=== PATIENT | female | born 1960 | race Two or more races ===

== ENCOUNTER → 2020-08-21 11:01 | Outpatient (BNVA) | payer MEDICAID, SELFPAY | PROVIDERS: PCP Internal Medicine; Referring Provider Internal Medicine; Visit Provider Student in an Organized Health Care Education/Training Program | DX: M06.00 Rheumatoid arthritis without rheumatoid factor, unspecified site (principal); R76.8 Other specified abnormal immunological findings in serum; M1A.0710 Idiopathic chronic gout, right ankle and foot, without tophus (tophi); M54.41 Lumbago with sciatica, right side; R21 Rash and other nonspecific skin eruption | CPT/HCPCS: 99214 ==

== ENCOUNTER 2020-08-21 12:41 | Outpatient (REF) | payer MEDICAID, SELFPAY ==
--- NOTE | 2020-08-21 13:06 | XR_ITS ---
EXAMINATION: XR LUMBOSACRAL SPINE CLINICAL INFORMATION: Lumbago with sciatica right side COMPARISON: November 19, 2015 TECHNIQUE: Three views of the lumbosacral spine. FINDINGS: There is no evidence of acute fracture, spondylolisthesis, or spondylolysis. Pedicles are intact. There is some mild marginal spurring seen at multiple levels. There is mild narrowing of the L5-S1 disc space. There are some mild posterior partially calcified disc bulge is present at the L to 3, L3-L4, and L4-L5 levels. There is some facet arthropathy seen involving the right L5-S1 facet joint. No significant degenerative change of the sacroiliac joints is noted. Prominent vascular calcifications are present. XR/XR lumbar spine 2-3V IMPRESSION: No acute fracture, spondylolisthesis, or spondylolysis of the lumbar spine. Spondylosis as described with narrowing of the L5-S1 disc space and some facet arthropathy. Posterior disc bulges as described.
[2020-08-21 13:36] LABS: MANUAL DIFF FLAG NO
[2020-08-21 14:03] LABS: Basophils Percent Auto 0.4 % (0-2); Eosinophils Absolute Auto 0.2 X10*3/uL (0.0-0.4); Eosinophils Percent Auto 2.4 % (0-4); Hematocrit 42.1 % (37-47); Hemoglobin 13.3 g/dl (12.0-16.0); Imm Gran Abs Auto 0.05 X10*3/uL (0.00-0.03); Imm Gran Pct Auto 0.5 % (0.0-0.4); Lymphocytes Absolute Auto 1.3 X10*3/uL (1.2-4.9); Mean Corpuscular HGB Conc 31.6 g/dl (31.0-35.0); Mean Corpuscular Hemoglobin 27.8 pg (27.0-33.0); Mean Corpuscular Volume 88.1 fL (80-98); Mean Platelet Volume 10.6 fL (9.4-12.3); Monocytes Absolute Auto 0.7 X10*3/uL (0.1-1.2); Neutrophils Absolute Auto 7.8 X10*3/uL (2.0-8.3); Neutrophils Percent Auto 76.7 % (45-73); Platelet Count 350 X10*3/uL (160-400); Red Blood Count 4.78 X10*6/uL (4.20-5.50); Red Cell Distribution Width 14.5 % (11.0-16.0); White Blood Count 10.1 X10*3/uL (4.8-10.8)
[2020-08-21 14:22] LABS: Alanine Aminotransferase 14 U/L (0-31); Albumin Level 4.3 g/dL (3.5-5.0); Alkaline Phosphatase 43 U/L (39-117); Anion Gap 15 (12-20); Aspartate Amino Transferase 17 U/L (5-31); Bilirubin Total 0.3 mg/dL (0.0-1.0); Blood Urea Nitrogen 20 mg/dL (9-16); C Reactive Protein 0.98 mg/dL (< or = 0.50); Carbon Dioxide 32 mmol/L (22-29); Chloride 100 mmol/L (96-108); Estimated Glomerular Filt Rate > 60; Glucose Random 110 mg/dL (60-115); Potassium 4.7 mmol/l (3.3-5.1); Sodium 142 mmol/L (135-145); Total Protein 7.4 g/dL (6.5-8.0); Uric Acid 5.9 mg/dL (2.4-5.7)
[2020-08-21 14:40] LABS: Calcium 10.3 mg/dL (8.4-10.2)
[2020-08-21 14:57] LABS: Erythrocyte Sedimentation Rate 23 MM/HR (0-20)
== END 2020-08-21 12:42 | disposition home or self-care (01) ==
LOC: HO.LAB 12:41
PROVIDERS: PCP Internal Medicine; Visit Provider Student in an Organized Health Care Education/Training Program
DX: E11.65 Type 2 diabetes mellitus with hyperglycemia (principal); R21 Rash and other nonspecific skin eruption; M54.41 Lumbago with sciatica, right side; M06.00 Rheumatoid arthritis without rheumatoid factor, unspecified site
CPT/HCPCS: 36415; 72100; 80053; 84550; 85025; 85652; 86140

== ENCOUNTER → 2020-09-10 09:24 | Outpatient (BNVA) | payer MEDICAID, SELFPAY | PROVIDERS: PCP Internal Medicine; Referring Provider Internal Medicine; Visit Provider Surgery | DX: L72.0 Epidermal cyst (principal) | CPT/HCPCS: 99212 ==

== ENCOUNTER → 2020-09-23 09:53 | Outpatient (BNVA) | payer MEDICAID, SELFPAY | PROVIDERS: PCP Internal Medicine; Referring Provider Internal Medicine; Visit Provider Internal Medicine | DX: J45.909 Unspecified asthma, uncomplicated (principal); G47.33 Obstructive sleep apnea (adult) (pediatric); E66.01 Morbid (severe) obesity due to excess calories; Z68.33 Body mass index [BMI] 33.0-33.9, adult; Z79.52 Long term (current) use of systemic steroids; Z79.899 Other long term (current) drug therapy; Z99.89 Dependence on other enabling machines and devices | CPT/HCPCS: 99212 ==

== ENCOUNTER 2020-10-08 13:53 | Outpatient (REF) | payer MEDICAID, SELFPAY ==
[2020-10-08 13:55] VITALS: BP 104/68; PULSE 98; RESP 16; TEMP 36.3; O2SAT 99
[2020-10-08 14:03] VITALS: BMI 29.9
[2020-10-08 14:41] VITALS: BP 112/76; PULSE 95; RESP 16
--- NOTE | 2020-10-09 09:31 | PM.OP ---
Brief Operative Note Date of Service: 10/08/20 Pre-op diagnosis: Epidermal cyst x2, right posterior thigh Post-op diagnosis: same Procedure: Excision of epidermal cyst x2, right posterior thigh Surgeon: Agustín Real MD Anesthesia: local Estimated blood loss (mL): 5 Pathology: other (Epidermal cyst) Condition: stable Disposition: other (Home)
--- NOTE | 2020-10-09 10:06 | OP_ITS ---
SURGEON: Agustín Real MD INDICATIONS: The patient is a 60-year-old female with 2 areas of cystic induration on the posterior thigh on the right. Each of this was about 1 cm in size and adjacent to each other. In view of recurrent swelling, she wanted to proceed with excision. She understood technique of excision under local anesthesia. She is aware of the risks, benefits, and alternatives. PREOPERATIVE DIAGNOSIS: Epidermal cyst x2 on the posterior right thigh. POSTOPERATIVE DIAGNOSIS: Epidermal cyst x2 on the posterior right thigh. PROCEDURE PERFORMED: Excision of epidermal cyst x2 on the posterior right thigh. ESTIMATED BLOOD LOSS: COMPLICATIONS: ANESTHESIA: ASSISTANTS: SPECIMENS: DESCRIPTION OF PROCEDURE: She was brought to the minor procedure room. She was placed in prone position. The area of the 2 cysts was prepped and draped. Lidocaine 1% was used for local anesthesia. I made an elliptical incision on the first cyst more superiorly using blade #15, carried down to full-thickness skin and subcutaneous fat over the entire indurated area. This was sent as specimen and I closed the incision with full-thickness nylon 3-0 interrupted sutures. I proceeded to excise the second cyst adjacent to this in same manner. Again, an elliptical incision was made in the skin around the indurated area and was extended all the way to the subcutaneous layer past the area of induration. This was sent as specimen as well. I closed this incision with multiple nylon 3-0 sutures as well. Dressings were applied. She tolerated procedure well. There were no complications noted. I will see her in the office for followup visit in 2 weeks and for removal of sutures. MD JAYASHREE Aviles/MIKE / [phone]
== END 2020-10-08 13:54 | disposition home or self-care (01) ==
LOC: HO.MS 13:53
PROVIDERS: PCP Internal Medicine; Visit Provider Surgery
PROC: (CPT 11401; principal; 2020-10-08 14:00)
DX: L72.0 Epidermal cyst (principal)
CPT/HCPCS: 11401 ×2; 88304

== ENCOUNTER → 2020-10-22 09:15 | Outpatient (BNVA) | payer MEDICAID, SELFPAY | PROVIDERS: PCP Internal Medicine; Referring Provider Internal Medicine; Visit Provider Surgery | DX: L72.0 Epidermal cyst (principal) | CPT/HCPCS: 99212 ==

== ENCOUNTER 2020-12-08 12:35 | Emergency (ER) | payer MEDICAID, SELFPAY ==
[2020-12-08 13:48] VITALS: BP 122/88; PULSE 115; RESP 18; TEMP 36.9; O2SAT 98; BMI 26.6
== END 2020-12-08 14:18 | disposition left against medical advice (07) ==
PROVIDERS: Emergency Provider Emergency Medicine
DX: Z20.822 Contact with and (suspected) exposure to COVID-19 (principal)
CPT/HCPCS: 99281; 99282

== ENCOUNTER 2020-12-24 14:49 | Outpatient (REF) | payer MEDICAID, SELFPAY ==
[2020-12-24 15:46] LABS: MANUAL DIFF FLAG NO
[2020-12-24 15:52] LABS: Basophils Percent Auto 0.3 % (0-2); Eosinophils Absolute Auto 0.2 X10*3/uL (0.0-0.4); Eosinophils Percent Auto 1.7 % (0-4); Hematocrit 40.4 % (37-47); Hemoglobin 12.8 g/dl (12.0-16.0); Imm Gran Abs Auto 0.04 X10*3/uL (0.00-0.03); Imm Gran Pct Auto 0.4 % (0.0-0.4); Lymphocytes Absolute Auto 2.1 X10*3/uL (1.2-4.9); Lymphocytes Percent Auto 21.5 % (20-40); Mean Corpuscular HGB Conc 31.7 g/dl (31.0-35.0); Mean Corpuscular Hemoglobin 27.8 pg (27.0-33.0); Mean Corpuscular Volume 87.8 fL (80-98); Monocytes Absolute Auto 0.9 X10*3/uL (0.1-1.2); Monocytes Percent Auto 9.3 % (2-11); Neutrophils Absolute Auto 6.6 X10*3/uL (2.0-8.3); Neutrophils Percent Auto 66.8 % (45-73); Platelet Count 422 X10*3/uL (160-400); Red Cell Distribution Width 15.5 % (11.0-16.0); White Blood Count 9.8 X10*3/uL (4.8-10.8)
[2020-12-24 16:06] LABS: Glucose Urine UA NEG (NEG); Leukocyte Esterase Urine NEG (NEG); Nitrite Urine NEG (NEG); Specific Gravity - Urine <= 1.005 (1.005-1.025); Urine Blood NEG (NEG); Urine Ketones NEG (NEG); Urine Protein NEG (NEG-TRACE)
[2020-12-24 16:13] LABS: Appearance Urine CLEAR; Color Urine YELLOW
[2020-12-24 16:16] LABS: Albumin Level 4.2 g/dL (3.5-5.0); Anion Gap 15 (12-20); Blood Urea Nitrogen 17 mg/dL (9-16); Calcium 9.3 mg/dL (8.4-10.2); Carbon Dioxide 28 mmol/L (22-29); Chloride 101 mmol/L (96-108); Estimated Glomerular Filt Rate > 60; Magnesium 1.8 mg/dL (1.6-2.6); Phosphorus 3.7 mg/dL (2.7-4.5); Sodium 140 mmol/L (135-145)
[2020-12-24 16:29] LABS: Creatinine Urine 68.66 mg/dL; Microalbum/Creatinine Ratio Ur 84.4 ug/mg cr; Protein/Creatinine Ratio, Ur 0.17 (<0.2); Total Protein Urine Random 12 mg/dL (<12)
[2020-12-24 16:38] LABS: Vitamin D 25-OH Total 50.8 ng/mL (>30)
[2020-12-24 16:42] LABS: Renal w Reflex Lab Use Only Order verified
[2020-12-26 12:07] LABS: Calcium (PTHI) 9.4 mg/dL (8.6-10.4); PTHI 74 pg/mL (14-64)
== END 2020-12-24 14:50 | disposition home or self-care (01) ==
LOC: HO.LAB 14:49
PROVIDERS: PCP Internal Medicine; Visit Provider Internal Medicine Nephrology
DX: I12.9 Hypertensive chronic kidney disease with stage 1 through stage 4 chronic kidney disease, or unspecified chronic kidney disease (principal); E11.22 Type 2 diabetes mellitus with diabetic chronic kidney disease; N18.2 Chronic kidney disease, stage 2 (mild); N20.0 Calculus of kidney; R60.9 Edema, unspecified; E66.01 Morbid (severe) obesity due to excess calories
CPT/HCPCS: 36415; 80051; 81003; 82040; 82043; 82306; 82310; 82565; 83735; 83970; 84100; 84156; 84520; 85025

== ENCOUNTER → 2021-01-26 08:54 | Outpatient (BNVA) | payer MEDICAID, SELFPAY | PROVIDERS: PCP Internal Medicine; Visit Provider Nurse Practitioner Family | DX: M47.816 Spondylosis without myelopathy or radiculopathy, lumbar region (principal) | CPT/HCPCS: 99202 ==

== ENCOUNTER 2021-01-29 14:34 | Outpatient (REF) | payer MEDICAID, SELFPAY ==
[2021-01-29 15:44] LABS: MANUAL DIFF FLAG NO
[2021-01-29 15:53] LABS: Basophils Percent Auto 0.3 % (0-2); Eosinophils Absolute Auto 0.1 X10*3/uL (0.0-0.4); Eosinophils Percent Auto 0.8 % (0-4); Hematocrit 42.5 % (37-47); Hemoglobin 13.3 g/dl (12.0-16.0); Imm Gran Abs Auto 0.05 X10*3/uL (0.00-0.03); Imm Gran Pct Auto 0.5 % (0.0-0.4); Lymphocytes Percent Auto 9.5 % (20-40); Mean Corpuscular HGB Conc 31.3 g/dl (31.0-35.0); Mean Corpuscular Hemoglobin 27.6 pg (27.0-33.0); Mean Corpuscular Volume 88.2 fL (80-98); Mean Platelet Volume 9.8 fL (9.4-12.3); Monocytes Absolute Auto 0.3 X10*3/uL (0.1-1.2); Monocytes Percent Auto 3.2 % (2-11); Neutrophils Absolute Auto 8.5 X10*3/uL (2.0-8.3); Neutrophils Percent Auto 85.7 % (45-73); Platelet Count 415 X10*3/uL (160-400); Red Blood Count 4.82 X10*6/uL (4.20-5.50)
[2021-01-29 16:35] LABS: Alanine Aminotransferase 17 U/L (0-31); Albumin Level 4.5 g/dL (3.5-5.0); Alkaline Phosphatase 53 U/L (39-117); Anion Gap 13 (12-20); Aspartate Amino Transferase 16 U/L (5-31); Bilirubin Total 0.3 mg/dL (0.0-1.0); Blood Urea Nitrogen 20 mg/dL (9-16); C Reactive Protein 0.43 mg/dL (< or = 0.50); Calcium 9.8 mg/dL (8.4-10.2); Carbon Dioxide 28 mmol/L (22-29); Chloride 99 mmol/L (96-108); Estimated Glomerular Filt Rate > 60; Glucose Random 110 mg/dL (60-115); Potassium 4.3 mmol/L (3.3-5.1); Sodium 136 mmol/L (135-145); Total Protein 7.8 g/dL (6.5-8.0)
[2021-01-29 17:41] LABS: Erythrocyte Sedimentation Rate 20 MM/HR (0-20)
== END 2021-01-29 14:35 | disposition home or self-care (01) ==
LOC: HO.LAB 14:34
PROVIDERS: PCP Internal Medicine; Visit Provider Student in an Organized Health Care Education/Training Program
DX: M06.00 Rheumatoid arthritis without rheumatoid factor, unspecified site (principal); M1A.0710 Idiopathic chronic gout, right ankle and foot, without tophus (tophi); R76.8 Other specified abnormal immunological findings in serum; Z79.52 Long term (current) use of systemic steroids; Z79.899 Other long term (current) drug therapy
CPT/HCPCS: 36415; 80053; 85025; 85652; 86140; 99212

== ENCOUNTER 2021-02-11 09:02 | Outpatient (REF) | payer MEDICAID, SELFPAY ==
[2021-02-11 11:39] LABS: Cholesterol 155 mg/dL; HDL Cholesterol 47 mg/dL; LDL Cholesterol Calculated 87 mg/dl; Triglycerides 109 mg/dL
[2021-02-12 06:21] LABS: LDL Cholesterol Direct 92 mg/dL (<100)
== END 2021-02-11 09:03 | disposition home or self-care (01) ==
LOC: HO.LAB 09:02
PROVIDERS: PCP Internal Medicine; Visit Provider Internal Medicine Endocrinology, Diabetes & Metabolism
DX: E11.65 Type 2 diabetes mellitus with hyperglycemia (principal)
CPT/HCPCS: 36415; 80061; 83721

== ENCOUNTER → 2021-02-19 09:41 | Outpatient (BNVA) | payer MEDICAID, SELFPAY | PROVIDERS: PCP Internal Medicine; Visit Provider Internal Medicine | DX: G47.33 Obstructive sleep apnea (adult) (pediatric) (principal); J45.909 Unspecified asthma, uncomplicated; Z99.89 Dependence on other enabling machines and devices | CPT/HCPCS: 99212 ==

== ENCOUNTER 2021-03-10 06:19 | Outpatient (REF) | payer MEDICAID, SELFPAY ==
--- NOTE | ~2021-03-10 | FL_ITS ---
EXAMINATION: XR FLUOROSCOPY WITH IMAGES CLINICAL INFORMATION: Spondylosis without myelopathy COMPARISON: None. TECHNIQUE: Fluoroscopy performed by Kelli Barraza NP. Fluoroscopy time: 0.6 minutes DAP: 6.91 Gycm2 Images: 7 FINDINGS: There are bilateral needles placed at adjacent to the L5, L4 and L3 facet joints with contrast visualization for ganglion block FL/FL guidance in treatment room IMPRESSION: Fluoroscopy provided to jovanni Pereira for spinal guidance.
== END 2021-03-10 06:20 | disposition home or self-care (01) ==
LOC: HO.RADIR 06:19
PROVIDERS: Visit Provider Anesthesiology
DX: M47.816 Spondylosis without myelopathy or radiculopathy, lumbar region (principal)
CPT/HCPCS: 64493; 64494; Q9967

== ENCOUNTER → 2021-03-17 11:09 | Outpatient (BNVA) | payer MEDICAID, SELFPAY | PROVIDERS: PCP Internal Medicine; Visit Provider Nurse Practitioner Family ==

== ENCOUNTER 2021-04-06 12:55 | Outpatient (REF) | payer MEDICAID, SELFPAY ==
--- NOTE | ~2021-04-06 | MM_ITS ---
EXAMINATION: MM SCREENING DIGITAL BREAST TOMOSYNTHESIS, BILATERAL CLINICAL INFORMATION: Screening. Asymptomatic. The lifetime risk of breast cancer based on the Tyrer-Cuzick Model is 9%. COMPARISON: Mammography: 11/07/2019, 10/12/2018, 10/07/2017 TECHNIQUE: Digital breast tomosynthesis is performed in both the craniocaudal and mediolateral oblique views along with computer-aided detection (CAD). Synthesized 2D images are generated from the tomosynthesis. FINDINGS: There are scattered areas of fibroglandular density (ACR BI-RADS breast composition Category b). There are no significant masses, abnormal calcifications, or other abnormalities. Parenchymal pattern is similar to prior studies. There is no developing density. No interval mass or architectural abnormality. Bilateral vascular and some punctate fine round calcifications are again noted. The axilla and skin contours are unremarkable. No significant changes. MM/MM tomosynthesis screening BI IMPRESSION: No mammographic evidence of malignancy. ASSESSMENT: BI-RADS 2: Benign RECOMMENDATION: Routine annual mammography screening. This patient's information was entered into a reminder system with a target due date for their next mammogram.
== END 2021-04-06 12:56 | disposition home or self-care (01) ==
LOC: HO.MAMMO 12:55
PROVIDERS: Visit Provider Internal Medicine
DX: Z12.31 Encounter for screening mammogram for malignant neoplasm of breast (principal)
CPT/HCPCS: 77063; 77067

== ENCOUNTER 2021-04-29 08:55 | Outpatient (REF) | payer MEDICAID, SELFPAY | END 2021-04-29 08:56 | disposition home or self-care (01) | LOC: HO.RESP 08:55 | PROVIDERS: PCP Internal Medicine Cardiovascular Disease; Visit Provider Internal Medicine Cardiovascular Disease | DX: Z13.89 Encounter for screening for other disorder (principal) ==

== ENCOUNTER → 2021-05-13 10:33 | Outpatient (BNVA) | payer MEDICAID, SELFPAY | PROVIDERS: PCP Internal Medicine; Visit Provider Internal Medicine Endocrinology, Diabetes & Metabolism | DX: E11.65 Type 2 diabetes mellitus with hyperglycemia (principal); E03.9 Hypothyroidism, unspecified; E78.5 Hyperlipidemia, unspecified; M85.80 Other specified disorders of bone density and structure, unspecified site; Z86.39 Personal history of other endocrine, nutritional and metabolic disease | CPT/HCPCS: 82947; 99212 ==

== ENCOUNTER → 2021-05-18 09:52 | Outpatient (REF) | payer MEDICAID, SELFPAY ==
--- NOTE | ~2021-05-18 | NM_ITS ---
Lexiscan Myocardial perfusion study Indication: Congestive heart failure, shortness of breath, assess for coronary disease and ischemia Technique: The patient was brought in for a Lexiscan perfusion study on 05/18/2021 and was injected 0.4 mg of Lexiscan intravenously. Within a minute of this injection 25 mCi of sestamibi was given intravenously. Images were obtained using the SPECT gamma camera interlaced with the gating device. Images were obtained in supine position. Resting perfusion study was performed on 05/29/2021. Patient was administered 25 mCi of sestamibi intravenously at rest. Images were then obtained in supine position. Total DLP 117mGy-cm. Images were processed with the software and compared side to side in short axis, horizontal long axis and vertical long axis views. Findings: Raw acquisition was reviewed. The stress perfusion study showed no significant perfusion abnormality. Both uncorrected as well as CT attenuation corrected images were reviewed. The gated study shows normal LV systolic function with calculated LVEF of 67%. LV cavity is normal in size. The gated study shows normal wall thickening and contraction of segments. Resting study shows no significant perfusion abnormality. Gating at rest reveals normal wall motion with ejection fraction at >70%. The findings are consistent with no reversible or fixed perfusion abnormality. NM/NM dinesh perf SPECT rest & str Impression: 1. Myocardial perfusion imaging study shows normal myocardial perfusion. No evidence of any ischemia or infarction. 2. Gated LVEF is 67% during stress; > 70% during rest. 3. Transient ischemic dilatation not present. EKG component of the test reported separately.
--- NOTE | 2021-05-18 10:00 | CA_ITS ---
Acquisition Time: 2021-05-18 10:16:13 Total Exercise Time: 00:02:00 Test Indications: Chest Pain Medications: SEE H Protocol: LEXISCAN Max HR: 117 BPM 73% of Pred: 159 BPM Max BP: 118/080 mmHG Max Work Load: 1.0 METS Pharmacological stress test with Lexiscan injection, while sitting and kicking her legs, without anginal symptoms, without arrythmia, with normotensive response to injection, with nondiagnostic EKG for ischemia. In recovery she reported headeache that was treated with Aminophylline 75mg IVP to reverse Lexiscan with resolution of symptom. Nuclear images pending. Test reviewed with Dr Dodge. Referred By: Tim Avila Overread By: NEERU GONZALEZ
== END ==
LOC: HO.CARD 09:52
PROVIDERS: Visit Provider Internal Medicine Cardiovascular Disease
DX: R06.02 Shortness of breath (principal)
CPT/HCPCS: 78452; 93017; A9500; J0280; J2785

== ENCOUNTER → 2021-08-07 09:33 | Day surgery (SDC) | payer MEDICAID, SELFPAY ==
[2021-08-03 12:20] VITALS: BMI 31.2
--- NOTE | 2021-08-06 10:05 | HO.ANESPROP2 ---
HPI - Anesthesia Eval Consult details Narrative: 60yo F for Bilateral L3-L4-DR-L5 Medial Branch Radiofrequency AB Prednisone daily (RA) Pt cx'd 08/07/21 d/t pt eating breakfast PMFSH Active Problems Active Problems: All Active Problems (Updated 05/13/21 @ 10:56 by Frances Pham MD) History of primary hyperparathyroidism (Acute) Osteopenia (Acute) Dyslipidemia (Acute) Spondylosis of lumbar spine (Acute) Hypothyroidism (Acute) LONA on CPAP (Acute) Bronchial asthma (Acute) Epidermal inclusion cyst (Acute) Morbid obesity (Acute) Skin rash (Acute) Lumbago with sciatica, right side (Acute) Gout of right foot (Acute) PHYLLIS positive (Acute) [facility] systemic steroid user (Acute) Seronegative rheumatoid arthritis (Acute) Diabetes type 2, uncontrolled (Acute) Past Medical History Medical History (Updated 05/13/21 @ 10:56 by Frances Pham MD) PHYLLIS positive Bronchial asthma Diabetes type 2, uncontrolled Dyslipidemia Epidermal inclusion cyst Gout of right foot History of primary hyperparathyroidism Hypothyroidism Morbid obesity LONA on CPAP Osteopenia Seronegative rheumatoid arthritis Family History Family History (Updated 01/29/21 @ 14:46 by Sherlyn Islas CMA) Daughter History of breast cancer Father Cirrhosis Diabetes Arthritis Mother Arthritis Sister Diabetes Surgical History Surgical History H/O parathyroidectomy H/O tubal ligation History of kidney surgery Hx of cholecystectomy S/P breast lumpectomy Social History Social History (Updated 01/29/21 @ 14:44 by Sherlyn Islas CMA) Alcohol intake: never Advance Directives: No Advance Directives Information Provided: Yes Meds Allergies Allergy/AdvReac Type Severity Reaction Status Date / Time aspirin [ASA] Allergy Intermediate ITCHY, Verified 08/07/21 09:43 HOT, AND HEADACHE Penicillins Allergy Intermediate RASH Verified 08/07/21 09:43 tofacitinib [Xeljanz] Allergy Intermediate chest Verified 08/07/21 09:43 pain, headaches sulfasalazine Allergy Unknown unknown Verified 08/07/21 09:43 Home Medications Medication Instructions Recorded Confirmed Last Taken Type atorvastatin 20 mg tablet 20 mg PO DAILY 08/21/20 08/03/21 Unknown History cholecalciferol (vitamin D3) 50 50 mcg PO DAILY 08/21/20 05/13/21 Unknown History mcg (2,000 unit) capsule cyclobenzaprine 10 mg tablet 10 mg PO BEDTIME 08/21/20 08/03/21 Unknown History fluticasone propionate 220 2 puff INHALATION BID 08/21/20 08/03/21 Unknown History mcg/actuation HFA aerosol inhaler (Flovent HFA) furosemide 40 mg tablet 40 mg PO BID 08/21/20 08/03/21 Unknown History hydrocodone 5 mg-acetaminophen 325 1 tab PO Q6H PRN 08/21/20 08/03/21 Unknown History mg tablet omeprazole magnesium 20 mg 20 mg PO DAILY 08/21/20 08/03/21 Unknown History tablet,delayed release (Prilosec OTC) valsartan 80 mg tablet 80 mg PO DAILY 08/21/20 08/03/21 Unknown History Exam Exam Date and Time: August 06, 2021 1005 Height,Weight and Vital Signs: Height 5 ft Weight 72.575 kg Pertinent Lab Results Pertinent Lab Results: Laboratory Tests 01/29/21 01/29/21 15:35 15:35 WBC 10.0 Hgb 13.3 Hct 42.5 Plt Count 415 H Sodium 136 Potassium 4.3 Chloride 99 Carbon Dioxide 28 BUN 20 H Creatinine 0.91 Narrative Narrative: NM dinesh perf SPECT rest & str 04/2021 Impression: ? 1.? Myocardial perfusion imaging study shows normal myocardial perfusion. No evidence of any ischemia or infarction. 2.? Gated LVEF is 67% during stress; > 70% during rest. 3. Transient ischemic dilatation not present. ? EKG nondiagnostic. Assessment and Plan Assessment Anesthesia Assessment: Chart Reviewed
== END ==
PROVIDERS: PCP Internal Medicine; Visit Provider Anesthesiology
DX: M47.816 Spondylosis without myelopathy or radiculopathy, lumbar region (principal); Z53.09 Procedure and treatment not carried out because of other contraindication

== ENCOUNTER → 2021-10-20 10:21 | Outpatient (BNVA) | payer MEDICAID, SELFPAY | PROVIDERS: PCP Internal Medicine; Visit Provider Internal Medicine | DX: G47.33 Obstructive sleep apnea (adult) (pediatric) (principal); J45.909 Unspecified asthma, uncomplicated; Z99.89 Dependence on other enabling machines and devices | CPT/HCPCS: 99212 ==

== ENCOUNTER 2022-01-01 09:33 | Day surgery (SDC) | payer MEDICAID, SELFPAY ==
--- NOTE | 2021-10-28 09:28 | HO.ANESPROP2 ---
HPI - Anesthesia Eval Consult details Narrative: 61yo F for Bilateral L3-L4-DR-L5 Medial Branch Radiofrequency AB Prednisone daily (RA) Pt cx'd 08/07/21 d/t pt eating breakfast PMFSH Active Problems Active Problems: All Active Problems (Updated 10/20/21 @ 11:27 by Radha Whitfield MD) History of primary hyperparathyroidism (Acute) Osteopenia (Acute) Dyslipidemia (Acute) Spondylosis of lumbar spine (Acute) Hypothyroidism (Acute) LONA on CPAP (Acute) Bronchial asthma (Acute) Epidermal inclusion cyst (Acute) Morbid obesity (Acute) Skin rash (Acute) Lumbago with sciatica, right side (Acute) Gout of right foot (Acute) PHYLLIS positive (Acute) intermediate systemic steroid 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 (Acute) Seronegative rheumatoid arthritis (Acute) Diabetes type 2, uncontrolled (Acute) Past Medical History Medical History PHYLLIS positive Bronchial asthma Diabetes type 2, uncontrolled Dyslipidemia Epidermal inclusion cyst Gout of right foot History of primary hyperparathyroidism Hypothyroidism Morbid obesity LONA on CPAP Osteopenia Seronegative rheumatoid arthritis Family History Family History Daughter History of breast cancer Father Cirrhosis Diabetes Arthritis Mother Arthritis Sister Diabetes Surgical History Surgical History H/O parathyroidectomy H/O tubal ligation History of kidney surgery Hx of cholecystectomy S/P breast lumpectomy Social History Social History Alcohol intake: never Meds Allergies Allergy/AdvReac Type Severity Reaction Status Date / Time aspirin [ASA] Allergy Intermediate ITCHY, Verified 10/20/21 10:57 HOT, AND HEADACHE Penicillins Allergy Intermediate RASH Verified 10/20/21 10:57 tofacitinib [Xeljanz] Allergy Intermediate chest Verified 10/20/21 10:57 pain, headaches sulfasalazine Allergy Unknown unknown Verified 10/20/21 10:57 Home Medications Medication Instructions Recorded Confirmed Last Taken Type atorvastatin 20 mg tablet 20 mg PO DAILY 08/21/20 08/03/21 Unknown History cholecalciferol (vitamin D3) 50 50 mcg PO DAILY 08/21/20 05/13/21 Unknown History mcg (2,000 unit) capsule cyclobenzaprine 10 mg tablet 10 mg PO BEDTIME 08/21/20 08/03/21 Unknown History fluticasone propionate 220 2 puff INHALATION BID 08/21/20 08/03/21 Unknown History mcg/actuation HFA aerosol inhaler (Flovent HFA) furosemide 40 mg tablet 40 mg PO BID 08/21/20 08/03/21 Unknown History hydrocodone 5 mg-acetaminophen 325 1 tab PO Q6H PRN 08/21/20 08/03/21 Unknown History mg tablet omeprazole magnesium 20 mg 20 mg PO DAILY 08/21/20 08/03/21 Unknown History tablet,delayed release (Prilosec OTC) valsartan 80 mg tablet 80 mg PO DAILY 08/21/20 08/03/21 Unknown History Exam Exam Date and Time: October 28, [id number] Pertinent Lab Results Pertinent Lab Results: Laboratory Tests 01/29/21 01/29/21 15:35 15:35 WBC 10.0 Hgb 13.3 Hct 42.5 Plt Count 415 H Sodium 136 Potassium 4.3 Chloride 99 Carbon Dioxide 28 BUN 20 H Creatinine 0.91 Narrative Narrative: NM dinesh perf SPECT rest & str 04/2021 Impression: ? 1.? Myocardial perfusion imaging study shows normal myocardial perfusion. No evidence of any ischemia or infarction. 2.? Gated LVEF is 67% during stress; > 70% during rest. 3. Transient ischemic dilatation not present. ? EKG nondiagnostic. Assessment and Plan Assessment Anesthesia Assessment: Chart Reviewed
--- NOTE | ~2022-01-01 | FL_ITS ---
EXAMINATION: XR FLUOROSCOPY WITH IMAGES CLINICAL INFORMATION: RFA, lumbar COMPARISON: Radiographs lumbar spine 08/21/2020 TECHNIQUE: Fluoroscopy performed by Dr. Sharath Parish. Fluoroscopy time: 0.8 minutes DAP: 4.61 mGycm2 Images: 4 FINDINGS: There are spinal needles/electrodes overlying the bilateral outer L3, L4, and L5 neural foramen. There is mild spurring multilevel vertebral bodies. FL/FL guidance in OR IMPRESSION: Fluoroscopy for pain management procedures.
--- NOTE | 2022-01-01 09:01 | HO.ANESPROP2 ---
[facility] Active Problems Active Problems: All Active Problems (Updated 10/20/21 @ 11:27 by Radha Whitfield MD) History of primary hyperparathyroidism (Acute) Osteopenia (Acute) Dyslipidemia (Acute) Spondylosis of lumbar spine (Acute) Hypothyroidism (Acute) LONA on CPAP (Acute) Bronchial asthma (Acute) Epidermal inclusion cyst (Acute) Morbid obesity (Acute) Skin rash (Acute) Lumbago with sciatica, right side (Acute) Gout of right foot (Acute) PHYLLIS positive (Acute) [employer] systemic steroid user (Acute) Seronegative rheumatoid arthritis (Acute) Diabetes type 2, uncontrolled (Acute) Past Medical History Medical History PHYLLIS positive Bronchial asthma Diabetes type 2, uncontrolled Dyslipidemia Epidermal inclusion cyst Gout of right foot History of primary hyperparathyroidism Hypothyroidism Morbid obesity LONA on CPAP Osteopenia Seronegative rheumatoid arthritis Functional capacity: independent ambulation Family History Family History Daughter History of breast cancer Father Cirrhosis Diabetes Arthritis Mother Arthritis Sister Diabetes Surgical History Surgical History H/O parathyroidectomy H/O tubal ligation History of kidney surgery Hx of cholecystectomy S/P breast lumpectomy History of Problems with Anesthesia: No Social History Social History Alcohol intake: never Patient Tobacco Use Status: Former Tobacco user Are you DNR?: No Advance Directives: No Advance Directives Information Provided: Yes Nutrition Risks: No Nutritional Risk Meds Allergies Allergy/AdvReac Type Severity Reaction Status Date / Time aspirin [ASA] Allergy Intermediate ITCHY, Verified 10/20/21 10:57 HOT, AND HEADACHE Penicillins Allergy Intermediate RASH Verified 10/20/21 10:57 tofacitinib [Xeljanz] Allergy Intermediate chest Verified 10/20/21 10:57 pain, headaches sulfasalazine Allergy Unknown unknown Verified 10/20/21 10:57 Home Medications Medication Instructions Recorded Confirmed Last Taken Type atorvastatin 20 mg tablet 20 mg PO DAILY 08/21/20 08/03/21 01/01/22 History cholecalciferol (vitamin D3) 50 50 mcg PO DAILY 08/21/20 05/13/21 01/01/22 History mcg (2,000 unit) capsule cyclobenzaprine 10 mg tablet 10 mg PO BEDTIME 08/21/20 08/03/21 Unknown History fluticasone propionate 220 2 puff INHALATION BID 08/21/20 08/03/21 01/01/22 History mcg/actuation HFA aerosol inhaler (Flovent HFA) furosemide 40 mg tablet 40 mg PO BID 08/21/20 08/03/21 Unknown History hydrocodone 5 mg-acetaminophen 325 1 tab PO Q6H PRN 08/21/20 08/03/21 01/01/22 History mg tablet omeprazole magnesium 20 mg 20 mg PO DAILY 08/21/20 08/03/21 01/01/22 History tablet,delayed release (Prilosec OTC) valsartan 80 mg tablet 80 mg PO DAILY 08/21/20 08/03/21 01/01/22 History Exam Exam Date and Time: January 01, [id number] Airway Mallampati Class: II (Edentulous) TM Dist: >3cm Denture: Upper and Lower Loose/Missing/Broken Teeth: Yes, Upper and Lower Heart: RRR Lungs: CTA Assessment and Plan Assessment Anesthesia Assessment: Anesthesia Plan Discussed and Chart Reviewed Final Anesthetic Review History of Problems with Anesthesia: No NPO: Yes ASA Class: III Final Preanesthetic Review: Meds/Allgs Chart Reviewed, Consent Obtained/Reviewed and Anes Risks/Benef Reviewed Patient Risk: Intermediate Procedure Risk: Intermediate Anesthetic Plan Anesthetic Plan: MAC: Disposition: Standard PACU
[2022-01-01 09:35] VITALS: BP 115/73; PULSE 118; RESP 18; TEMP 36.1; O2SAT 95; BMI 29.2
[2022-01-01 09:44] LABS: Glucose, Whole Blood 115 mg/dL (60-115)
[2022-01-01] MEDS: Lactated Ringers 1,000 ML 50 ML IVCONT (10:05)
--- NOTE | 2022-01-01 10:20 | MHC.SHP ---
Pre-Procedural Eval Section A Date of Service: 01/01/22 The patient is an INPATIENT: No Changes since office visit: Yes Patient answered all questions The History & Physical has been completed within 30 days and I have reviewed it.: No Section B Chief Complaint: Spondylosis of Lumbar Spine Details of Present Illness: spondylosis lumbar spine Relevant Family History (Specify if Yes): No Relevant Social History: None Present Medications: see Short Stay Collaborative assessment Medical History: No relevant PMH History of Previous Operations: No relevant previous surgery Allergies: Allergies Allergy/AdvReac Type Severity Reaction Status Date / Time aspirin [ASA] Allergy Intermediate ITCHY, Verified 10/20/21 10:57 HOT, AND HEADACHE Penicillins Allergy Intermediate RASH Verified 10/20/21 10:57 tofacitinib [Xeljanz] Allergy Intermediate chest Verified 10/20/21 10:57 pain, headaches sulfasalazine Allergy Unknown unknown Verified 10/20/21 10:57 Review of Systems Sugical H&P ROS: Negative: Constitution, Cardiovascular, Respiratory, Neurological, Psychiatric, Hem-Onc, Allergic/Immunologic, Gastrointestinal, Genitourinary, Musculoskeletal, Integumentary, Endocrine and Eyes/Ears/Nose/Throat Exam Surgical H&P Exam: Normal: HEENT, Normal: Heart, Normal: Lungs, Normal: Extremities, Normal: Abdomen, Normal: Skin and Normal: Neurological Plan Diagnosis/Plan: Unchanged I have reviewed the history and physical and performed a pertinent physical examination on my patient. No changes have occurred unless specified.
--- NOTE | 2022-01-01 10:21 | PC.NURSE ---
dr gallegos aware of pts pulse rate 108-112 naD
[2022-01-01 11:25] VITALS: BP 99/72; PULSE 101; RESP 18; TEMP 36.9; O2SAT 100
--- NOTE | 2022-01-01 11:29 | P.BOP_ITS ---
Brief Operative Note Date of Service: 01/01/22 Pre-op diagnosis: spondylosis lumbar spine Post-op diagnosis: same Procedure: L3- L4- L5 B/l MB RFA Implants: none Surgeon: Sharath Parish MD Anesthesia: MAC Was an [employer] used for this Procedure?: No Estimated blood loss (mL): 2 Pathology: none sent Condition: stable Disposition: PACU
[2022-01-01 11:40] VITALS: BP 105/65; PULSE 101; RESP 18; O2SAT 98
[2022-01-01 11:55] VITALS: BP 101/71; PULSE 100; RESP 18; O2SAT 98
[2022-01-01 12:10] VITALS: BP 105/67; PULSE 98; RESP 18; TEMP 36.2; O2SAT 97; O2SAT 98
--- NOTE | 2022-01-01 13:59 | W.PM.OPN ---
Operative Note Operative Note Date of Service: 01/01/22 Narrative: Nicky is very pleasant pleasant 61 y.o. who came to OR for the medial branch radiofrequency ablation- L4 dorsal ramus L5 o bilateral the attempt to treat lumbar spondylosis related pain After obtaining informed consent patient was brought to the operating room, SHE was positioned prone on operating table, [employer] monitors were applied and patient was deeply sedated. ? Time-out was performed delineating correct site, side, the nature of the procedure, patient's allergy, preoperative antibiotic if needed.? All operating room staff was participating in OR time-out procedure. Patient's entire back was prepped with ChloraPrep twice and draped with sterile utility drapes.? Sterilely draped C-arm was brought over operating field and square picture of L4 and L5 vertebra as well as sacral bone were demonstrated on the screen.? The point of interests were delineated as connection of superior articular process of L4, L5 vertebrae bilaterally with corresponding bilateral transverse processes, as well as connection of the superior articular process of S1 bilateral with bilateral sacral alae.? The projection of the point of interest to the skin was injected with small amount of lidocaine 2%.? After that 18 gauge radiofrequency cannulas were sequentially driven to the point of interest in tunnel vision fashion 1st on the right and then on the left.? .On motor stimulation patient denied any pulsating movement in the lower extremity.? After that the needles was injected with small amount of mixture of bupivacaine 0.5% and lidocaine 2% with addition of trace amount of Kenalog.? Total dose of Kenalog was less than 20 mg. Energy application was performed with 89 degree centigrade for 90 seconds on each side.? Upon completion of the energy application cannulas? were removed sterile dressing was applied.? Patient tolerated procedure well he was taken outside of the operating room to recovery room where she recovered uneventfully.
== END 2022-01-01 13:08 | disposition home or self-care (01) ==
PROVIDERS: PCP Internal Medicine; Visit Provider Anesthesiology
PROC: (CPT 64635; principal; 2022-01-01 10:40)
DX: M47.816 Spondylosis without myelopathy or radiculopathy, lumbar region (principal); M54.50 Low back pain, unspecified; M05.9 Rheumatoid arthritis with rheumatoid factor, unspecified; E03.9 Hypothyroidism, unspecified; G47.33 Obstructive sleep apnea (adult) (pediatric); E11.9 Type 2 diabetes mellitus without complications; J45.909 Unspecified asthma, uncomplicated; Z79.52 Long term (current) use of systemic steroids; Z79.899 Other long term (current) drug therapy; Z88.0 Allergy status to penicillin; Z88.8 Allergy status to other drugs, medicaments and biological substances; Z87.891 Personal history of nicotine dependence
CPT/HCPCS: 64635; 64636 ×2; 82947; J2250; J3010; J3300

== ENCOUNTER → 2022-01-15 10:02 | Outpatient (BNVA) | payer MEDICAID, SELFPAY | PROVIDERS: PCP Internal Medicine; Visit Provider Internal Medicine Endocrinology, Diabetes & Metabolism | DX: E11.65 Type 2 diabetes mellitus with hyperglycemia (principal); E03.9 Hypothyroidism, unspecified; M85.80 Other specified disorders of bone density and structure, unspecified site; Z86.39 Personal history of other endocrine, nutritional and metabolic disease | CPT/HCPCS: 82947; 83036; 99212 ==

== ENCOUNTER → 2022-02-03 10:00 | Outpatient (BNVA) | payer MEDICAID, SELFPAY | PROVIDERS: PCP Internal Medicine; Visit Provider Nurse Practitioner Family | DX: M47.816 Spondylosis without myelopathy or radiculopathy, lumbar region (principal); M54.2 Cervicalgia | CPT/HCPCS: 99212 ==

== ENCOUNTER 2022-03-10 09:56 | Outpatient (REF) | payer MEDICAID, SELFPAY ==
[2022-03-10 11:10] LABS: Appearance Urine CLEAR; Color Urine YELLOW; Glucose Urine UA NEG (NEG); Leukocyte Esterase Urine NEG (NEG); Nitrite Urine NEG (NEG); Specific Gravity - Urine <= 1.005 (1.005-1.025); Urine Blood NEG (NEG); Urine Ketones NEG (NEG); Urine Protein NEG (NEG-TRACE)
== END 2022-03-10 09:57 | disposition home or self-care (01) ==
LOC: HO.LAB 09:56
PROVIDERS: PCP Internal Medicine; Visit Provider Internal Medicine Nephrology
DX: I12.9 Hypertensive chronic kidney disease with stage 1 through stage 4 chronic kidney disease, or unspecified chronic kidney disease (principal); E11.22 Type 2 diabetes mellitus with diabetic chronic kidney disease; E11.21 Type 2 diabetes mellitus with diabetic nephropathy; N18.2 Chronic kidney disease, stage 2 (mild); R06.9 Unspecified abnormalities of breathing; E66.01 Morbid (severe) obesity due to excess calories; D68.62 Lupus anticoagulant syndrome
CPT/HCPCS: 81003

== ENCOUNTER 2022-03-22 09:55 | Outpatient (REF) | payer MEDICAID, SELFPAY ==
--- NOTE | ~2022-03-22 | XR_ITS ---
EXAMINATION: BILATERAL SHOULDER X-RAY CLINICAL INFORMATION: Fibromyalgia COMPARISON: Previous right shoulder x-ray from 2010 TECHNIQUE: 4 views of each shoulder FINDINGS: Right: Bone alignment is normal. No fracture or dislocation is seen. The glenohumeral joint is normal. There is arthritis at the acromioclavicular joint. There are periarticular soft tissue ossifications adjacent to the acromioclavicular joint and acromion. There is a small undersurface acromial osteophyte. Left: Bone alignment is normal. No fracture or dislocation is seen. The glenohumeral joint is normal. There is mild arthritis at the acromioclavicular joint. There is a small undersurface acromial osteophyte. Soft tissues are unremarkable. XR/XR shoulder RT min 2V IMPRESSION: Arthritis at the acromioclavicular joints, right greater than left.
--- NOTE | ~2022-03-22 | XR_ITS ---
EXAMINATION: BILATERAL SHOULDER X-RAY CLINICAL INFORMATION: Fibromyalgia COMPARISON: Previous right shoulder x-ray from 2010 TECHNIQUE: 4 views of each shoulder FINDINGS: Right: Bone alignment is normal. No fracture or dislocation is seen. The glenohumeral joint is normal. There is arthritis at the acromioclavicular joint. There are periarticular soft tissue ossifications adjacent to the acromioclavicular joint and acromion. There is a small undersurface acromial osteophyte. Left: Bone alignment is normal. No fracture or dislocation is seen. The glenohumeral joint is normal. There is mild arthritis at the acromioclavicular joint. There is a small undersurface acromial osteophyte. Soft tissues are unremarkable. XR/XR shoulder LT min 2V IMPRESSION: Arthritis at the acromioclavicular joints, right greater than left.
--- NOTE | ~2022-03-22 | XR_ITS ---
EXAMINATION: XR CERVICAL SPINE CLINICAL INFORMATION: Fibromyalgia COMPARISON: Previous x-ray September 2014 TECHNIQUE: 5 views of the cervical spine were obtained. FINDINGS: There are no prevertebral soft tissue or bony abnormalities demonstrated. No compression fractures or subluxations are identified. Alignment is maintained at the atlanto-axial articulation. The disc spaces are preserved. No endplate changes are seen. There are surgical clips from likely prior thyroidectomy. The prevertebral soft tissues are otherwise normal. The foramina are patent. XR/XR cervical spine 3V IMPRESSION: Unremarkable cervical spine. Post operative changes from likely thyroidectomy.
[2022-03-22 12:40] LABS: MANUAL DIFF FLAG NO
[2022-03-22 13:12] LABS: Basophils Absolute Auto 0.1 X10*3/uL (0.0-0.2); Basophils Percent Auto 0.5 % (0-2); Eosinophils Absolute Auto 0.1 X10*3/uL (0.0-0.4); Eosinophils Percent Auto 1.3 % (0-4); Hematocrit 46.5 % (37.0-47.0); Hemoglobin 14.6 g/dl (12.0-16.0); Imm Gran Abs Auto 0.05 X10*3/uL (0.00-0.03); Imm Gran Pct Auto 0.5 % (0.0-0.4); Lymphocytes Absolute Auto 1.6 X10*3/uL (1.2-4.9); Lymphocytes Percent Auto 17.9 % (20-40); Mean Corpuscular HGB Conc 31.4 g/dl (31.0-35.0); Mean Corpuscular Hemoglobin 28.1 pg (27.0-33.0); Mean Corpuscular Volume 89.4 fL (80.0-98.0); Mean Platelet Volume 10.3 fL (9.4-12.3); Monocytes Absolute Auto 0.6 X10*3/uL (0.1-1.2); Monocytes Percent Auto 6.4 % (2-11); Neutrophils Absolute Auto 6.7 x10*3/uL (2.0-8.3); Neutrophils Percent Auto 73.4 % (45-73); Platelet Count 353 X10*3/uL (160-400); Red Cell Distribution Width 14.5 % (11.0-16.0); White Blood Count 9.2 X10*3/uL (4.8-10.8)
[2022-03-22 13:40] LABS: Alanine Aminotransferase 21 U/L (0-31); Albumin Level 4.6 g/dL (3.5-5.0); Alkaline Phosphatase 49 U/L (39-117); Anion Gap 21 (12-20); Aspartate Amino Transferase 20 U/L (5-31); Bilirubin Total 0.4 mg/dL (0.0-1.0); Blood Urea Nitrogen 20 mg/dL (9-16); Calcium 10.5 mg/dL (8.4-10.2); Carbon Dioxide 23 mmol/L (22-29); Chloride 99 mmol/L (96-108); Estimated Glomerular Filt Rate 53; Glucose Random 106 mg/dL (60-115); Sodium 139 mmol/L (135-145); Total Protein 8.1 g/dL (6.5-8.0)
[2022-03-22 14:00] LABS: Erythrocyte Sedimentation Rate 7 MM/HR (0-20)
[2022-03-22 14:28] LABS: Creatinine Urine 30.14 mg/dL; Microalbum/Creatinine Ratio Ur 33.1 ug/mg cr
[2022-03-23 21:06] LABS: Anti DNA DS Antibody 1 IU/mL; SM/Ribonucleoprotein Ab <1.0 NEG AI (<1.0 NEG); Smith Protein <1.0 NEG AI (<1.0 NEG)
== END 2022-03-22 09:56 | disposition home or self-care (01) ==
LOC: HO.LAB 09:55
PROVIDERS: PCP Internal Medicine; Visit Provider Internal Medicine Rheumatology
DX: M79.7 Fibromyalgia (principal); R76.8 Other specified abnormal immunological findings in serum; M47.816 Spondylosis without myelopathy or radiculopathy, lumbar region; Z79.52 Long term (current) use of systemic steroids; Z79.899 Other long term (current) drug therapy
CPT/HCPCS: 36415; 72040; 73030; 80053; 82043; 85025; 85652; 86140; 86225; 86235; 99212

== ENCOUNTER 2022-04-14 10:55 | Outpatient (REF) | payer MEDICAID, SELFPAY ==
--- NOTE | ~2022-04-14 | MM_ITS ---
EXAMINATION: MM SCREENING DIGITAL BREAST TOMOSYNTHESIS, BILATERAL CLINICAL INFORMATION: Screening. Asymptomatic. The lifetime risk of breast cancer based on the Tyrer-Cuzick Model is 8%. COMPARISON: Mammography: 04/06/2021, 11/07/2019, 10/12/2018. TECHNIQUE: Digital breast tomosynthesis is performed in both the craniocaudal and mediolateral oblique views along with computer-aided detection (CAD). Synthesized 2D images are generated from the tomosynthesis. FINDINGS: There are scattered areas of fibroglandular density (ACR BI-RADS breast composition Category b). Parenchymal pattern is similar to prior studies. No developing density or interval mass or architectural abnormality. There are scattered bilateral benign vascular and some isolated punctate round calcifications in each breast. The axilla and skin contours are unremarkable. There are interval new fine ill-defined tightly grouped calcifications central 3:00 right breast mid depth, possibly vascular. Patient will be recalled for additional imaging. MM/MM tomosynthesis screening BI IMPRESSION: Right: -New fine ill-defined tightly grouped calcifications central 3:00 mid depth, possibly vascular. Left: -No mammographic evidence of malignancy. ASSESSMENT: BI-RADS 0: Incomplete - Need Additional Imaging Evaluation RECOMMENDATION: 1. Additional views of the right breast (magnification CC, magnification LM). 2. Radiology department staff will contact the patient for additional imaging. This patient's information was entered into a reminder system with a target due date for their next mammogram.
== END 2022-04-14 10:56 | disposition home or self-care (01) ==
LOC: HO.MAMMO 10:55
PROVIDERS: PCP Internal Medicine; Visit Provider Internal Medicine
DX: Z12.31 Encounter for screening mammogram for malignant neoplasm of breast (principal)
CPT/HCPCS: 77063; 77067

== ENCOUNTER → 2022-04-21 10:02 | Outpatient (BNVA) | payer MEDICAID, SELFPAY | PROVIDERS: PCP Internal Medicine; Visit Provider Internal Medicine | DX: J45.909 Unspecified asthma, uncomplicated (principal); G47.33 Obstructive sleep apnea (adult) (pediatric); Z99.89 Dependence on other enabling machines and devices | CPT/HCPCS: 99212 ==

== ENCOUNTER 2022-04-26 13:55 | Outpatient (REF) | payer MEDICAID, SELFPAY ==
--- NOTE | ~2022-04-26 | MM_ITS ---
EXAMINATION: MM DIAGNOSTIC DIGITAL MAMMOGRAPHY, RIGHT CLINICAL INFORMATION: Recall from screening for interval new fine ill-defined tightly grouped calcifications central 3:00 right breast mid depth. TC score 8%. COMPARISON: Mammography: 04/14/2022, 04/06/2021 TECHNIQUE: Digital mammography is performed in the following views: Magnification CC, magnification LM x2, magnification ML. FINDINGS: There are scattered areas of fibroglandular density (ACR BI-RADS breast composition Category b). The additional magnification views show tightly grouped punctate heterogeneous calcifications central 3:00 position, best visualized on the magnification CC view. This represents change from prior studies and stereotactic sampling is recommended. Results are discussed with the patient at time of visit, using an band tumbler. MM/MM added views RT IMPRESSION: -Tightly grouped punctate heterogeneous calcifications central 3:00 position. ASSESSMENT: BI-RADS 4: Suspicious RECOMMENDATION: Stereotactic sampling right breast calcifications. This patient's information was entered into a reminder system with a target due date for their next mammogram.
== END 2022-04-26 13:56 | disposition home or self-care (01) ==
LOC: HO.MAMMO 13:55
PROVIDERS: PCP Internal Medicine; Visit Provider Internal Medicine
DX: R92.1 Mammographic calcification found on diagnostic imaging of breast (principal)
CPT/HCPCS: 77065

== ENCOUNTER → 2022-05-06 08:25 | Outpatient (BNVA) | payer MEDICAID, SELFPAY | PROVIDERS: PCP Internal Medicine; Referring Provider Internal Medicine; Visit Provider Surgery | DX: R92.1 Mammographic calcification found on diagnostic imaging of breast (principal) | CPT/HCPCS: 99212 ==

== ENCOUNTER 2022-05-07 09:57 | Outpatient (REF) | payer MEDICAID, SELFPAY ==
--- NOTE | ~2022-05-07 | MM_ITS ---
EXAMINATION: STEREOTACTIC TOMOSYNTHESIS-GUIDED VACUUM-ASSISTED BREAST BIOPSY, RIGHT SPECIMEN RADIOGRAPH, RIGHT POST PROCEDURE DIGITAL MAMMOGRAM, RIGHT CLINICAL INFORMATION: Tightly grouped punctate heterogeneous calcifications central mid right breast. COMPARISON: Mammography 04/14/2022, 04/26/2022. TECHNIQUE/PROCEDURE: Informed consent was obtained from the patient after discussion of the benefits, risks, and alternatives to biopsy today. Patient appeared to understand. Gave opportunity for questions. Patient signed consent form. Hospital provided dog trainer assisted for the consent and throughout the procedure. BIOPSY TABLE: LiquidText Affirm Prone Biopsy System. LESION: Tightly grouped punctate calcifications central mid right breast. LOCAL ANESTHESIA: 6 mL carbonated 1% lidocaine; 10 mL 1% lidocaine with epinephrine. DERMATOTOMY: Single skin dia dermatotomy performed. NEEDLE: [employer] 9-gauge vacuum assisted core biopsy device. APPROACH: Craniocaudal. TARGETING: Combination of digital breast tomosynthesis and stereotactic digital mammography used for targeting. CORES: 6. CLIP: SyncbakurMark T-shaped marker. SPECIMEN RADIOGRAPH: Specimen radiograph is taken in separate room using digital mammography. The index calcifications are in the excised cores. There are over 30 calcifications in the cores. POST PROCEDURE UNILATERAL DIGITAL MAMMOGRAM: The post biopsy mammogram is performed in separate room using separate digital mammography equipment from the biopsy procedure. CC and ML views are obtained. There are scattered areas of fibroglandular density (breast composition category: b). The clip marker is in position. The calcifications are markedly decreased at the biopsy site. No gross hematoma. The patient tolerated the procedure well. No immediate complications. Home instructions reviewed with the patient. Final pathology results are pending. MM/MM stereotactic biopsy RT IMPRESSION: 1. Digital tomosynthesis-guided core biopsy right breast with clip placement. 2. Specimen radiograph taken and post procedure mammogram. There is satisfactory positioning of the biopsy clip. 3. Final pathology results pending. An addendum report will be issued.
[2022-05-07] MEDS: Lidocaine HCl 1 % MPF 5 ML VIAL 10 ML SUBCUT (11:42)
[2022-05-07] MEDS: Sodium Bicarbonate 8.4% 50 MEQ/50 ML VIAL SUBCUT (11:43)
== END 2022-05-07 09:58 | disposition home or self-care (01) ==
LOC: HO.MAMMO 09:57
PROVIDERS: Visit Provider Surgery
DX: R92.1 Mammographic calcification found on diagnostic imaging of breast (principal)
CPT/HCPCS: 19081; 88305; A4648

== ENCOUNTER → 2022-05-12 08:51 | Outpatient (BNVA) | payer MEDICAID, SELFPAY | PROVIDERS: PCP Internal Medicine; Visit Provider Surgery | DX: R92.1 Mammographic calcification found on diagnostic imaging of breast (principal); Z98.890 Other specified postprocedural states | CPT/HCPCS: 99212 ==

== ENCOUNTER 2022-06-10 09:55 | Outpatient (REF) | payer MEDICAID, SELFPAY ==
[2022-06-10 10:30] LABS: MANUAL DIFF FLAG NO
[2022-06-10 11:28] LABS: Basophils Percent Auto 0.5 % (0-2); Eosinophils Absolute Auto 0.4 X10*3/uL (0.0-0.4); Hematocrit 37.4 % (37.0-47.0); Hemoglobin 12.1 g/dl (12.0-16.0); Imm Gran Abs Auto 0.03 X10*3/uL (0.00-0.03); Imm Gran Pct Auto 0.3 % (0.0-0.4); Lymphocytes Absolute Auto 1.2 X10*3/uL (1.2-4.9); Lymphocytes Percent Auto 13.3 % (20-40); Mean Corpuscular HGB Conc 32.4 g/dl (31.0-35.0); Mean Corpuscular Hemoglobin 28.7 pg (27.0-33.0); Mean Corpuscular Volume 88.6 fL (80.0-98.0); Mean Platelet Volume 10.3 fL (9.4-12.3); Monocytes Absolute Auto 0.7 X10*3/uL (0.1-1.2); Monocytes Percent Auto 8.4 % (2-11); Neutrophils Absolute Auto 6.4 x10*3/uL (2.0-8.3); Neutrophils Percent Auto 73.5 % (45-73); Platelet Count 305 X10*3/uL (160-400); Red Blood Count 4.22 X10*6/uL (4.20-5.50); Red Cell Distribution Width 13.8 % (11.0-16.0); White Blood Count 8.8 X10*3/uL (4.8-10.8)
[2022-06-10 12:14] LABS: Erythrocyte Sedimentation Rate 25 MM/HR (0-20)
[2022-06-10 12:25] LABS: Alanine Aminotransferase 11 U/L (0-31); Albumin Level 3.8 g/dL (3.5-5.0); Alkaline Phosphatase 49 U/L (39-117); Anion Gap 17 (12-20); Aspartate Amino Transferase 15 U/L (5-31); Bilirubin Total 0.2 mg/dL (0.0-1.0); Blood Urea Nitrogen 18 mg/dL (9-16); C Reactive Protein 0.44 mg/dL (< or = 0.50); Calcium 8.2 mg/dL (8.4-10.2); Carbon Dioxide 25 mmol/L (22-29); Chloride 104 mmol/L (96-108); Cholesterol 156 mg/dL; Estimated Glomerular Filt Rate > 60; Glucose Random 92 mg/dL (60-115); HDL Cholesterol 43 mg/dL; LDL Cholesterol Calculated 92 mg/dl; Potassium 4.2 mmol/L (3.3-5.1); Sodium 142 mmol/L (135-145); Total Protein 6.7 g/dL (6.5-8.0); Triglycerides 109 mg/dL
[2022-06-10 12:33] LABS: Free T4 (Free Thyroxine) 1.14 ng/dL (0.71-1.85)
[2022-06-10 13:51] LABS: Creatinine Urine 53.44 mg/dL; Microalbum/Creatinine Ratio Ur 31.8 ug/mg cr
[2022-06-16 03:42] LABS: N-Telopeptide 31 (see note); NTXCreaRU 55 mg/dL (20-275)
== END 2022-06-10 09:56 | disposition home or self-care (01) ==
LOC: HO.LAB 09:55
PROVIDERS: Absent Provider Internal Medicine Rheumatology; PCP Internal Medicine; Visit Provider Internal Medicine Endocrinology, Diabetes & Metabolism
DX: M06.00 Rheumatoid arthritis without rheumatoid factor, unspecified site (principal); E03.9 Hypothyroidism, unspecified; E11.65 Type 2 diabetes mellitus with hyperglycemia; M85.80 Other specified disorders of bone density and structure, unspecified site; Z79.899 Other long term (current) drug therapy; Z86.39 Personal history of other endocrine, nutritional and metabolic disease
CPT/HCPCS: 36415; 80053; 80061; 82043; 82523; 84439; 84443; 85025; 85652; 86140

== ENCOUNTER 2022-07-20 12:53 | Outpatient (REF) | payer MEDICAID, SELFPAY ==
--- NOTE | ~2022-07-20 | MM_ITS ---
EXAMINATION: BONE DENSITOMETRY CLINICAL INDICATION: Osteopenia. COMPARISON: Previous BD dated 07/16/2020 and baseline BD dated 12/12/2009. TECHNIQUE: Using a maufait DXA System (software version: 13.1) manufactured by [employer], dual-energy x-ray absorptiometry was performed of the lumbar spine, left hip, and left forearm radius 33%. The images are of good technical quality. Summary results are attached. FINDINGS: AP SPINE L1-L4: Current: BMD 1.150 g/cm2, Z-score 1.0, T-score -0.2, normal, 8.7% decrease from previous, 18.7% decrease from baseline (<5% change is not significant). Prior: BMD 1.260 g/cm2. Baseline: BMD 1.415 g/cm2. LEFT FEMUR, NECK: Current: BMD 0.786 g/cm2, Z-score -0.6, T-score -1.8, osteopenia. Prior: BMD 0.777 g/cm2. Baseline: BMD 1.011 g/cm2. LEFT FEMUR, TOTAL: Current: BMD 1.020 g/cm2, Z-score 1.0, T-score 0.1, normal, 4.1% decrease from previous, 18.8% decrease from baseline (<5% change is not significant). Prior: BMD 1.064 g/cm2. Baseline: BMD 1.256 g/cm2. LEFT FOREARM RADIUS 33%: BMD 0.710 g/cm2, Z-score -0.7, T-score -1.9, osteopenia, 10.1% decrease from previous, 21.3% decrease from baseline (<5% change is not significant). Prior: BMD 0.790 g/cm2. Baseline: BMD 0.902 g/cm2. IDENTIFIED RISK FACTORS: Menopause, renal, hyperparathyroid, glucocorticoids (chronic), rheumatoid arthritis, secondary osteoporosis. HISTORY OF FRACTURE: None listed. MEDICATIONS: Vitamin D. MM/XR DEXA appendicular skeleton IMPRESSION: 1. DIAGNOSIS: Osteopenia based on the lowest T-score value of -1.9 in the forearm radius 33% applying World Health Organization criteria. 2. 10-YEAR FRACTURE RISK PREDICTION, FRAX: Major osteoporotic fracture (clinical spine, forearm, hip or shoulder) 10.8%. Hip fracture 1.6%. 3. Treatment Recommendations: NOF guidelines recommend consideration for treatment in postmenopausal women and men age 50 and older presenting with the following: -A hip or vertebral (clinical or morphometric) fracture. -T-score less than or equal to -2.5 at the femoral neck or spine after appropriate evaluation to exclude secondary causes. -Low bone mass at the hip or spine and a 10-year fracture probability by FRAX of greater than or equal to 3% for hip fracture or greater than or equal to 20% for major osteoporotic fracture based on the [place] adapted WHO algorithm. 4. Other Recommendations: All treatment decisions require clinical judgment and consideration of individual patient factors, including patient preferences, comorbidities, previous drug use, risk factors not captured in the FRAX model (e.g. frailty, falls, vitamin D deficiency, increased bone turnover, interval significant decline in bone density) and possible under or overestimation of fracture risk by FRAX. Additional medical evaluation for secondary cause of low bone mineral density may be appropriate. FUTURE SCAN RECOMMENDATION: People with diagnosed cases of osteoporosis or at high risk for fracture should have regular bone mineral density tests. For patients eligible for Medicare, routine testing is allowed once every 2 years. The testing frequency can be increased to one year for patients who have rapidly progressing disease, those who are receiving or discontinuing medical therapy to restore bone mass, or have additional risk factors.
[2022-07-20 15:46] LABS: Albumin Level 4.4 g/dL (3.5-5.0); Anion Gap 18 (12-20); Blood Urea Nitrogen 12 mg/dL (9-16); Calcium 9.8 mg/dL (8.4-10.2); Carbon Dioxide 29 mmol/L (22-29); Chloride 100 mmol/L (96-108); Estimated Glomerular Filt Rate 58; Glucose Random 94 mg/dL (60-115); Potassium 4.9 mmol/L (3.3-5.1); Sodium 142 mmol/L (135-145)
[2022-07-20 16:08] LABS: Vitamin D 25-OH Total 44.5 ng/mL (>30)
[2022-07-21 11:46] LABS: PTHI 56 pg/mL (16-77)
== END 2022-07-20 12:54 | disposition home or self-care (01) ==
LOC: HO.MAMMO 12:53
PROVIDERS: Absent Provider Internal Medicine Endocrinology, Diabetes & Metabolism; PCP Internal Medicine; Visit Provider Internal Medicine
DX: Z13.820 Encounter for screening for osteoporosis (principal); E11.65 Type 2 diabetes mellitus with hyperglycemia; Z78.0 Asymptomatic menopausal state; Z86.39 Personal history of other endocrine, nutritional and metabolic disease
CPT/HCPCS: 36415; 77081; 80048; 82040; 82306; 83970

== ENCOUNTER → 2022-07-22 09:31 | Outpatient (BNVA) | payer MEDICAID, SELFPAY | PROVIDERS: PCP Internal Medicine; Visit Provider Internal Medicine Endocrinology, Diabetes & Metabolism | DX: M85.80 Other specified disorders of bone density and structure, unspecified site (principal); Z79.899 Other long term (current) drug therapy | CPT/HCPCS: 99212 ==

== ENCOUNTER → 2022-08-04 10:49 | Outpatient (BNVA) | payer MEDICAID, SELFPAY | PROVIDERS: PCP Internal Medicine; Visit Provider Internal Medicine | DX: G47.33 Obstructive sleep apnea (adult) (pediatric) (principal); Z99.89 Dependence on other enabling machines and devices; J45.909 Unspecified asthma, uncomplicated | CPT/HCPCS: 99212 ==

== ENCOUNTER 2022-09-06 09:53 | Outpatient (REF) | payer MEDICAID, SELFPAY ==
[2022-09-06 11:19] LABS: Blood Urea Nitrogen 13 mg/dL (9-16); Calcium 10.2 mg/dL (8.4-10.2); Estimated Glomerular Filt Rate 58
== END 2022-09-06 09:54 | disposition home or self-care (01) ==
LOC: HO.LAB 09:53
PROVIDERS: PCP Internal Medicine; Visit Provider Internal Medicine Endocrinology, Diabetes & Metabolism
DX: M85.80 Other specified disorders of bone density and structure, unspecified site (principal); Z86.39 Personal history of other endocrine, nutritional and metabolic disease
CPT/HCPCS: 36415; 82310; 82565; 84520

== ENCOUNTER 2022-09-08 08:55 | Outpatient (REF) | payer MEDICAID, SELFPAY | END 2022-09-08 08:56 | disposition home or self-care (01) | LOC: HO.MDS 08:55 | PROVIDERS: Visit Provider Internal Medicine Endocrinology, Diabetes & Metabolism | DX: M85.80 Other specified disorders of bone density and structure, unspecified site (principal) | CPT/HCPCS: 96365; J3489 ==

== ENCOUNTER → 2023-01-26 10:00 | Outpatient (BNVA) | payer MEDICAID, SELFPAY | PROVIDERS: PCP Internal Medicine; Visit Provider Anesthesiology | DX: M47.816 Spondylosis without myelopathy or radiculopathy, lumbar region (principal); M54.2 Cervicalgia | CPT/HCPCS: 99212 ==

== ENCOUNTER → 2023-02-03 09:35 | Outpatient (BNVA) | payer MEDICAID, SELFPAY | PROVIDERS: Visit Provider Internal Medicine Endocrinology, Diabetes & Metabolism | DX: M85.80 Other specified disorders of bone density and structure, unspecified site (principal) | CPT/HCPCS: 99212 ==

== ENCOUNTER 2023-03-03 10:02 | Day surgery (SDC) | payer MEDICAID, SELFPAY ==
[2023-02-28 09:50] VITALS: BMI 24.9
--- NOTE | 2023-03-02 08:59 | HO.ANESPROP2 ---
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) Spondylosis of lumbar spine (Acute) Cervical muscle pain (Acute) Bronchial asthma (Acute) Breast calcification, right (Acute) Long-term use of immunosuppressant medication (Acute) Positive PHYLLIS (antinuclear antibody) (Acute) Fibromyalgia (Acute) History of primary hyperparathyroidism (Acute) Osteopenia (Acute) Dyslipidemia (Acute) Hypothyroidism (Acute) LONA on CPAP (Acute) Bronchial asthma (Acute) Morbid obesity (Acute) Seronegative rheumatoid arthritis (Acute) Diabetes type 2, uncontrolled (Acute) Past Medical History Medical History (Updated 08/04/22 @ 11:20 by Radha Whitfield MD) PHYLLIS positive Breast calcification, right Bronchial asthma Diabetes type 2, uncontrolled Dyslipidemia Epidermal inclusion cyst Fibromyalgia Gout of right foot History of primary hyperparathyroidism Hypothyroidism Long-term use of immunosuppressant medication Morbid obesity LONA on CPAP Osteopenia Positive PHYLLIS (antinuclear antibody) Seronegative rheumatoid arthritis Family History Family History Daughter History of breast cancer Father Cirrhosis Diabetes Arthritis Mother Arthritis Sister Diabetes Surgical History Surgical History (Updated 02/28/23 @ 09:47 by Gladys Carranza RN) H/O parathyroidectomy H/O tubal ligation History of kidney surgery History of surgery Hx of cholecystectomy Hx of excision of mass S/P breast lumpectomy History of Problems with Anesthesia: No Social History Social History Alcohol intake: never Patient Tobacco Use Status: Former Tobacco user Quit Date: 1991 Tobacco use type: Cigarette Smoked in Last 30 Days: No Use of substances other than those prescribed or required for medical reasons: Yes Substance Use Type: Marijuana Substance Use Frequency: Daily Are you DNR?: No Advance Directives: No Advance Directives Information Provided: Yes Meds Allergies Allergy/AdvReac Type Severity Reaction Status Date / Time aspirin [ASA] Allergy Intermediate ITCHY, Verified 03/03/23 10:33 HOT, AND HEADACHE calcium Allergy Intermediate Vomiting Verified 03/03/23 10:33 Penicillins Allergy Intermediate RASH Verified 03/03/23 10:33 tofacitinib [Xeljanz] Allergy Intermediate chest Verified 03/03/23 10:33 pain, headaches sulfasalazine Allergy Unknown unknown Verified 03/03/23 10:33 Home Medications Medication Instructions Recorded Confirmed Last Taken Type atorvastatin 20 mg tablet 20 mg PO DAILY 08/21/20 03/03/23 03/03/23 07:00 History hydrocodone 5 mg-acetaminophen 325 1 tab PO Q6H PRN Pain 08/21/20 02/28/23 01/01/22 History mg tablet omeprazole magnesium 20 mg 20 mg PO DAILY 08/21/20 03/03/23 03/03/23 07:00 History tablet,delayed release (Prilosec OTC) aripiprazole 10 mg tablet (Abilify) 10 mg PO .every 2 days 03/22/22 02/28/23 Unknown History artifi.tears(hypromellose)(PF) 0.3 1 drp ophthalmic (eye) Q4-6H PRN 03/22/22 02/28/23 Unknown History % eye drops Dry Eye(S) docusate sodium 100 mg capsule 100 mg PO BID 03/22/22 02/28/23 Unknown History (Colace) furosemide 40 mg tablet 40 mg PO .every 2 days 03/22/22 02/28/23 Unknown History gabapentin 300 mg capsule 900 mg PO BEDTIME 03/22/22 02/28/23 Unknown History irbesartan 75 mg tablet 75 mg PO DAILY 03/22/22 03/03/23 03/03/23 07:00 History levothyroxine 75 mcg capsule 75 mcg PO DAILY 03/22/22 03/03/23 03/03/23 07:00 History melatonin 10 mg capsule 10 mg PO BEDTIME PRN Insomnia 03/22/22 02/28/23 Unknown History metformin 500 mg tablet,extended 1,000 mg PO BID 03/22/22 03/03/23 03/03/23 07:00 History release 24 hr naloxone 4 mg/actuation nasal 1 spray intranasal Q2M 03/22/22 02/28/23 Unknown History spray (Narcan) polyethylene glycol 3350 17 17 g PO DAILY 03/22/22 02/28/23 Unknown History gram/dose oral powder (Miralax) sennosides 8.6 mg capsule (senna) 8.6 mg PO DAILY 03/22/22 02/28/23 Unknown History zolpidem 5 mg tablet (Ambien) 5 mg PO BEDTIME PRN Insomnia 03/22/22 02/28/23 Unknown History metoprolol tartrate 25 mg tablet 25 mg PO BID 05/06/22 03/03/23 03/03/23 07:00 History blood sugar diagnostic (FreeStyle #10 ea 07/22/22 02/03/23 Unknown History Lite Strips) Exam Exam Date and Time: March 02, 2023 0859 Height,Weight and Vital Signs: Height 5 ft 1 in Weight 59.874 kg Pertinent Lab Results Pertinent Lab Results: Laboratory Tests 06/10/22 07/20/22 09/06/22 10:29 14:25 10:01 WBC 8.8 Hgb 12.1 Hct 37.4 Plt Count 305 Sodium 142 Potassium 4.9 Chloride 100 Carbon Dioxide 29 BUN 13 Creatinine 0.97 Narrative Narrative: NM dinesh perf SPECT rest & str 2020 Impression: ? 1.? Myocardial perfusion imaging study shows normal myocardial perfusion. No evidence of any ischemia or infarction. 2.? Gated LVEF is 67% during stress; > 70% during rest. 3. Transient ischemic dilatation not present. ? EKG component of the test reported separately. Assessment and Plan Assessment Anesthesia Assessment: Chart Reviewed Final Anesthetic Review History of Problems with Anesthesia: No Documented by User: Kurt Wang MD 03/03/23 12:19 [facility] Past Medical History Medical History (Updated 08/04/22 @ 11:20 by Radha Whitfield MD) PHYLLIS positive Breast calcification, right Bronchial asthma Diabetes type 2, uncontrolled Dyslipidemia Epidermal inclusion cyst Fibromyalgia Gout of right foot History of primary hyperparathyroidism Hypothyroidism Long-term use of immunosuppressant medication Morbid obesity LONA on CPAP Osteopenia Positive PHYLLIS (antinuclear antibody) Seronegative rheumatoid arthritis Family History Family History Daughter History of breast cancer Father Cirrhosis Diabetes Arthritis Mother Arthritis Sister Diabetes Family history of problems with anesthesia: No Surgical History Surgical History (Updated 02/28/23 @ 09:47 by Gladys Carranza RN) H/O parathyroidectomy H/O tubal ligation History of kidney surgery History of surgery Hx of cholecystectomy Hx of excision of mass S/P breast lumpectomy Social History Social History Alcohol intake: never Patient Tobacco Use Status: Former Tobacco user Quit Date: 1991 Tobacco use type: Cigarette Smoked in Last 30 Days: No Use of substances other than those prescribed or required for medical reasons: Yes Substance Use Type: Marijuana Substance Use Frequency: Daily Are you DNR?: No Advance Directives: No Advance Directives Information Provided: Yes Meds Allergies Allergy/AdvReac Type Severity Reaction Status Date / Time aspirin [ASA] Allergy Intermediate ITCHY, Verified 03/03/23 10:33 HOT, AND HEADACHE calcium Allergy Intermediate Vomiting Verified 03/03/23 10:33 Penicillins Allergy Intermediate RASH Verified 03/03/23 10:33 tofacitinib [Xeljanz] Allergy Intermediate chest Verified 03/03/23 10:33 pain, headaches sulfasalazine Allergy Unknown unknown Verified 03/03/23 10:33 Home Medications Medication Instructions Recorded Confirmed Last Taken Type atorvastatin 20 mg tablet 20 mg PO DAILY 08/21/20 03/03/23 03/03/23 07:00 History hydrocodone 5 mg-acetaminophen 325 1 tab PO Q6H PRN Pain 08/21/20 02/28/23 01/01/22 History mg tablet omeprazole magnesium 20 mg 20 mg PO DAILY 08/21/20 03/03/23 03/03/23 07:00 History tablet,delayed release (Prilosec OTC) aripiprazole 10 mg tablet (Abilify) 10 mg PO .every 2 days 03/22/22 02/28/23 Unknown History artifi.tears(hypromellose)(PF) 0.3 1 drp ophthalmic (eye) Q4-6H PRN 03/22/22 02/28/23 Unknown History % eye drops Dry Eye(S) docusate sodium 100 mg capsule 100 mg PO BID 03/22/22 02/28/23 Unknown History (Colace) furosemide 40 mg tablet 40 mg PO .every 2 days 03/22/22 02/28/23 Unknown History gabapentin 300 mg capsule 900 mg PO BEDTIME 03/22/22 02/28/23 Unknown History irbesartan 75 mg tablet 75 mg PO DAILY 03/22/22 03/03/23 03/03/23 07:00 History levothyroxine 75 mcg capsule 75 mcg PO DAILY 03/22/22 03/03/23 03/03/23 07:00 History melatonin 10 mg capsule 10 mg PO BEDTIME PRN Insomnia 03/22/22 02/28/23 Unknown History metformin 500 mg tablet,extended 1,000 mg PO BID 03/22/22 03/03/23 03/03/23 07:00 History release 24 hr naloxone 4 mg/actuation nasal 1 spray intranasal Q2M 03/22/22 02/28/23 Unknown History spray (Narcan) polyethylene glycol 3350 17 17 g PO DAILY 03/22/22 02/28/23 Unknown History gram/dose oral powder (Miralax) sennosides 8.6 mg capsule (senna) 8.6 mg PO DAILY 03/22/22 02/28/23 Unknown History zolpidem 5 mg tablet (Ambien) 5 mg PO BEDTIME PRN Insomnia 03/22/22 02/28/23 Unknown History metoprolol tartrate 25 mg tablet 25 mg PO BID 05/06/22 03/03/23 03/03/23 07:00 History blood sugar diagnostic (FreeStyle #10 ea 07/22/22 02/03/23 Unknown History Lite Strips) Exam Airway TM Dist: >3cm Neck ROM: Full Assessment and Plan Assessment Anesthesia Assessment: Anesthesia Plan Discussed Final Anesthetic Review Family History of Problems with Anesthesia: No NPO: Yes ASA Class: III Final Preanesthetic Review: No Changes in Pt Med Stat, Meds/Allgs Chart Reviewed, Consent Obtained/Reviewed and Anes Risks/Benef Reviewed Patient Risk: Intermediate Procedure Risk: Low Anesthetic Plan Anesthetic Plan: MAC: Disposition: Standard PACU
--- NOTE | ~2023-03-03 | FL_ITS ---
EXAMINATION: XR FLUOROSCOPY WITH IMAGES CLINICAL INFORMATION: Pain. Bilateral lumbar RFA. COMPARISON: Lumbar radiographs 08/21/2020 TECHNIQUE: Fluoroscopy Supervised By: Dr. Sharath Parish. Fluoroscopy Time: 0.8 minutes. Cumulative Dose: 10.0 mGy. DAP: 2.72 Gycm2. Images: 6. FINDINGS: There are needles/electrodes overlying the bilateral outer L3, L4, and L5 neural foramen. FL/FL guidance in OR IMPRESSION: Fluoroscopy for pain management procedures.
[2023-03-03 10:42] VITALS: BP 100/61; PULSE 71; RESP 16; TEMP 36.2; O2SAT 99; BMI 23.2
[2023-03-03 10:58] LABS: Glucose, Whole Blood 110 mg/dL (60-115)
[2023-03-03] MEDS: Lactated Ringers 1,000 ML 100 ML IVCONT (10:58)
--- NOTE | 2023-03-03 11:40 | MHC.SHP ---
Pre-Procedural Eval Section A Date of Service: 03/03/23 The patient is an INPATIENT: No Changes since office visit: Yes Patient answered all questions The History & Physical has been completed within 30 days and I have reviewed it.: No Section B Chief Complaint: Spondylosis without myelopathy or radiculopathy, l Details of Present Illness: as above Relevant Family History (Specify if Yes): No Relevant Social History: None Present Medications: None Medical History: No relevant PMH History of Previous Operations: No relevant previous surgery Allergies: Allergies Allergy/AdvReac Type Severity Reaction Status Date / Time aspirin [ASA] Allergy Intermediate ITCHY, Verified 03/03/23 10:33 HOT, AND HEADACHE calcium Allergy Intermediate Vomiting Verified 03/03/23 10:33 Penicillins Allergy Intermediate RASH Verified 03/03/23 10:33 tofacitinib [Xeljanz] Allergy Intermediate chest Verified 03/03/23 10:33 pain, headaches sulfasalazine Allergy Unknown unknown Verified 03/03/23 10:33 Review of Systems Sugical H&P ROS: Negative: Constitution, Cardiovascular, Respiratory, Neurological, Psychiatric, Hem-Onc, Allergic/Immunologic, Gastrointestinal, Genitourinary, Musculoskeletal, Integumentary, Endocrine and Eyes/Ears/Nose/Throat Exam Surgical H&P Exam: Normal: HEENT, Normal: Heart, Normal: Lungs, Normal: Extremities, Normal: Abdomen, Normal: Skin and Normal: Neurological Plan Diagnosis/Plan: Unchanged I have reviewed the history and physical and performed a pertinent physical examination on my patient. No changes have occurred unless specified. Time Spent With Patient Time: Total time managing care of this patient today ____ minutes.
[2023-03-03 12:55] VITALS: BP 103/78; PULSE 69; RESP 20; TEMP 36.4; O2SAT 94
--- NOTE | 2023-03-03 13:00 | PM.OP ---
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
--- NOTE | 2023-03-03 13:02 | W.PM.OPN ---
Operative Note Operative Note Date of Service: 03/03/23 Narrative: RFA MB L3- L4- L5 B/l Nicky is very pleasant pleasant 61 y.o. who came to OR for the medial branch radiofrequency ablation- L4 dorsal ramus L5 o bilateral the attempt to treat lumbar spondylosis related pain After obtaining informed consent patient was brought to the operating room, SHE was positioned prone on operating table, [employer] monitors were applied and patient was deeply sedated. ? Time-out was performed delineating correct site, side, the nature of the procedure, patient's allergy, preoperative antibiotic if needed.? All operating room staff was participating in OR time-out procedure. Patient's entire back was prepped with ChloraPrep twice and draped with sterile utility drapes.? Sterilely draped C-arm was brought over operating field and square picture of L4 and L5 vertebra as well as sacral bone were demonstrated on the screen.? The point of interests were delineated as connection of superior articular process of L4, L5 vertebrae bilaterally with corresponding bilateral transverse processes, as well as connection of the superior articular process of S1 bilateral with bilateral sacral alae.? The projection of the point of interest to the skin was injected with small amount of lidocaine 2%.? After that 18 gauge radiofrequency cannulas were sequentially driven to the point of interest in tunnel vision fashion 1st on the right and then on the left.? .On motor stimulation patient denied any pulsating movement in the lower extremity.? After that the needles was injected with small amount of mixture of bupivacaine 0.5% and lidocaine 2% with addition of trace amount of Kenalog.? Total dose of Kenalog was less than 10 mg. Energy application was performed with 89 degree centigrade for 90 seconds on each side.? Upon completion of the energy application cannulas? were removed sterile dressing was applied.? Patient tolerated procedure well she was taken outside of the operating room to recovery room where she recovered uneventfully.
[2023-03-03 13:10] VITALS: BP 120/74; PULSE 63; RESP 18; TEMP 36.5; O2SAT 98
== END 2023-03-03 13:54 | disposition home or self-care (01) ==
PROVIDERS: PCP Registered Nurse; Visit Provider Anesthesiology
PROC: (CPT 64635; principal; 2023-03-03 11:30)
DX: M47.816 Spondylosis without myelopathy or radiculopathy, lumbar region (principal); M54.50 Low back pain, unspecified; M54.2 Cervicalgia; R20.0 Anesthesia of skin; M79.7 Fibromyalgia; M06.00 Rheumatoid arthritis without rheumatoid factor, unspecified site; E78.5 Hyperlipidemia, unspecified; E03.9 Hypothyroidism, unspecified; E11.9 Type 2 diabetes mellitus without complications; G47.33 Obstructive sleep apnea (adult) (pediatric); M85.80 Other specified disorders of bone density and structure, unspecified site; Z79.84 Long term (current) use of oral hypoglycemic drugs; Z79.52 Long term (current) use of systemic steroids; Z79.60 Long term (current) use of unspecified immunomodulators and immunosuppressants; Z99.89 Dependence on other enabling machines and devices; Z79.899 Other long term (current) drug therapy; Z88.0 Allergy status to penicillin; Z88.8 Allergy status to other drugs, medicaments and biological substances; Z87.891 Personal history of nicotine dependence
CPT/HCPCS: 64635; 64636 ×2; 82947; J2250; J2795; J3010; J3301

== ENCOUNTER → 2023-03-17 10:29 | Outpatient (BNVA) | payer MEDICAID, SELFPAY | PROVIDERS: PCP Registered Nurse; Visit Provider Internal Medicine | DX: J45.909 Unspecified asthma, uncomplicated (principal); G47.33 Obstructive sleep apnea (adult) (pediatric); Z99.89 Dependence on other enabling machines and devices | CPT/HCPCS: 99212 ==

== ENCOUNTER 2023-04-23 10:02 | Outpatient (REF) | payer MEDICAID, SELFPAY ==
--- NOTE | ~2023-04-23 | MM_ITS ---
EXAMINATION: MM SCREENING DIGITAL BREAST TOMOSYNTHESIS, BILATERAL CLINICAL INFORMATION: Screening. Asymptomatic. Benign right stereotactic biopsy 05/07/2022 (benign breast tissue with fibrocystic changes and microcalcifications). The lifetime risk of breast cancer based on the Tyrer-Cuzick Model is 7%. COMPARISON: Mammography: 05/07/2022, 04/26/2022, 04/14/2022, 04/06/2021, 11/07/2019, 10/12/2018 TECHNIQUE: Digital breast tomosynthesis is performed in both the craniocaudal and mediolateral oblique views along with computer-aided detection (CAD). Synthesized 2D images are generated from the tomosynthesis. FINDINGS: There are scattered areas of fibroglandular density (ACR BI-RADS breast composition Category b). There are no significant masses, abnormal calcifications, or other abnormalities. Parenchymal pattern is similar to prior studies. There is no developing density or architectural abnormality. Small nodular asymmetry central right breast on CC view is similar to prior studies. There is a biopsy clip marker mid central 3:00 right breast. The axilla and skin contours are unremarkable. No significant changes. MM/MM tomosynthesis screening BI IMPRESSION: No mammographic evidence of malignancy. ASSESSMENT: BI-RADS 2: Benign RECOMMENDATION: Routine annual mammography screening. This patient's information was entered into a reminder system with a target due date for their next mammogram.
== END 2023-04-23 10:03 | disposition home or self-care (01) ==
LOC: HO.MAMMO 10:02
PROVIDERS: PCP Registered Nurse; Visit Provider Registered Nurse
DX: Z12.31 Encounter for screening mammogram for malignant neoplasm of breast (principal)
CPT/HCPCS: 77063; 77067

== ENCOUNTER 2023-08-04 08:27 | Outpatient (REF) | payer MEDICAID, SELFPAY | END 2023-08-04 08:28 | disposition home or self-care (01) | LOC: HO.LAB 08:27 | PROVIDERS: Visit Provider Internal Medicine Endocrinology, Diabetes & Metabolism | DX: M85.80 Other specified disorders of bone density and structure, unspecified site (principal); Z79.899 Other long term (current) drug therapy; Z79.52 Long term (current) use of systemic steroids | CPT/HCPCS: 82523; 99212 ==

== ENCOUNTER 2023-08-04 09:53 | Outpatient (AMB) | payer MEDICAID, SELFPAY ==
[2023-08-04 09:55] VITALS: BP 122/72; PULSE 81; BMI 25.7
--- NOTE | 2023-08-04 09:55 | MHC.OFFVIS ---
Intake Vital Signs 08/04/23 09:55 Height 5 ft 2 in Weight 140 lb 10.479 oz BMI 25.7 BP 122/72 Blood Pressure Location Lt brachial Position Sitting Pulse 81 Pulse Source Pulse Oximeter Intake Visit Reasons: f/u osteoporosis-CONFIRMED Intake Note: Patient present for Osteoporosis follow up visit. Color Coater Required: Yes Color Coater Language: Sweeping Compound Blender Name: Daisha medical staff Information Interpreted: non-clinical & clinical Accompanied by: Son Allergies aspirin [ASA] Allergy (Intermediate, Verified 08/04/23 10:07) ITCHY, HOT, AND HEADACHE calcium Allergy (Intermediate, Verified 08/04/23 10:07) Vomiting Penicillins Allergy (Intermediate, Verified 08/04/23 10:07) RASH tofacitinib [Xeljanz] Allergy (Intermediate, Verified 08/04/23 10:07) chest pain, headaches sulfasalazine Allergy (Unknown, Verified 08/04/23 10:07) unknown Medication List - Last Reconciled 08/04/23 by Isael Hollis MD albuterol sulfate 90 mcg/actuation (ProAir HFA) 2 puffs PO Q6H PRN alcohol swabs (Alcohol Prep Pads) USE DIRECTED SIX TIMES DAILY alendronate 70 mg PO QWEEK allopurinol 100 mg PO QPM aripiprazole (Abilify) 10 mg PO .every 2 days artifi.tears(hypromellose)(PF) 0.3% 1 drp ophthalmic (eye) Q4-6H PRN atorvastatin 20 mg PO DAILY blood sugar diagnostic (FreeStyle Lite Strips) As directed blood-glucose meter (FreeStyle [place] Lite kit) As directed cane As directed cyclobenzaprine 10 mg PO BEDTIME docusate sodium (Colace) 100 mg PO BID furosemide 40 mg PO .every 2 days gabapentin 900 mg PO BEDTIME hydrocodone-acetaminophen 5-325 mg 1 tab PO Q6H PRN irbesartan 75 mg PO DAILY levothyroxine 75 mcg PO DAILY liraglutide (Victoza 3-Ko) 1.8 mg (0.3 mL) subcut DAILY melatonin 10 mg PO BEDTIME PRN metformin ER 1,000 mg PO BID metoprolol tartrate 25 mg PO BID naloxone 4 mg/actuation (Narcan) 1 spray intranasal Q2M omeprazole magnesium (Prilosec OTC) 20 mg PO DAILY pen needle, diabetic (BD Milly 2nd Gen Pen Needle) Once daily with Victoza polyethylene glycol 3350 (Miralax) 17 grams PO DAILY prednisone 5 mg PO DAILY sennosides (senna) 8.6 mg PO DAILY zolpidem (Ambien) 5 mg PO BEDTIME PRN HPI HPI Comments History of Present Illness Details 62-year-old female, today for follow-up visit . Today's visit focus is on osteoporosis She has Other PMH of fibromyalgia, SLE, cholecystitis status post cholecystectomy, nephrolithiasis, hypertension likely due to fibromuscular dysplasia of the renal arteries requiring stents placement, primary hyperparathyroidism s/p parathyroidectomy and hypothyroidism She [address] Cristobal on 11/12/13, only left inferior parathyroid gland left. She has low bone mass. No fx Denies co d or heat intolerance, she is gaining weight, + hot flashes, denies diarrhea, + constipation, + insomnia, fatigue, dry skin, dysphagia, dyspnea, dysphonia, tremors, palpitations, irritability, anxiety. . She Currently is on Prednisone 5 mg daily for SLE. DEXA Scan 07/14/18 [facility] SPINE L1-L4: Current: BMD 1.226 g/cm2, Z-score 0.6, T-score 0.4, normal, 11.8% increase from previous, 13.4% decrease from baseline (<5% change is not significant). Prior: BMD 1.097 g/cm2. Baseline: BMD 1.415 g/cm2. LEFT FEMUR, NECK: Current: BMD 0.809 g/cm2, Z-score -1.1, T-score -1.7, osteopenia. Prior: BMD 0.907 g/cm2. Baseline: BMD 1.011 g/cm2. LEFT FEMUR, TOTAL: Current: BMD 1.121 g/cm2, Z-score 1.1, T-score 0.9, normal, 3.9% decrease from previous, 10.7% decrease from baseline (<5% change is not significant). Prior: BMD 1.167 g/cm2. Baseline: BMD 1.256 g/cm2. LEFT FOREARM RADIUS 33%: Current: BMD 0.847 g/cm2, Z-score 0.5, T-score -0.3, normal, 6.1% decrease from baseline (<5% change is not significant). Baseline: BMD 0.902 g/cm2. Repeat DEXA 07/20/2022 [facility] SPINE L1-L4: Current: BMD 1.150 g/cm2, Z-score 1.0, T-score -0.2, normal, 8.7% decrease from previous, 18.7% decrease from baseline (<5% change is not significant). Prior: BMD 1.260 g/cm2. Baseline: BMD 1.415 g/cm2. LEFT FEMUR, NECK: Current: BMD 0.786 g/cm2, Z-score -0.6, T-score -1.8, osteopenia. Prior: BMD 0.777 g/cm2. Baseline: BMD 1.011 g/cm2. LEFT FEMUR, TOTAL: Current: BMD 1.020 g/cm2, Z-score 1.0, T-score 0.1, normal, 4.1% decrease from previous, 18.8% decrease from baseline (<5% change is not significant). Prior: BMD 1.064 g/cm2. Baseline: BMD 1.256 g/cm2. LEFT FOREARM RADIUS 33%: BMD 0.710 g/cm2, Z-score -0.7, T-score -1.9, osteopenia, 10.1% decrease from previous, 21.3% decrease from baseline (<5% change is not significant). Prior: BMD 0.790 g/cm2. Baseline: BMD 0.902 g/cm2. Laboratory Tests 01/29/21 01/29/21 02/11/21 15:35 15:35 09:15 Hgb 13.3 Hct 42.5 Sodium 136 Potassium 4.3 Creatinine 0.91 Estimated GFR > 60 Random Glucose 110 Calcium 9.8 AST 16 ALT 17 Alkaline Phosphata se 53 D Albumin 4.5 Triglycerides 109 Cholesterol 155 LDL Cholesterol Di rect LDL Cholesterol, C alc 87 HDL Cholesterol 47 02/11/21 09:15 Hgb Hct Sodium Potassium Creatinine Estimated GFR Random Glucose Calcium AST ALT Alkaline Phosphata se Albumin Triglycerides Cholesterol LDL Cholesterol Di rect 92 LDL Cholesterol, C alc HDL Cholesterol Took alendronate but couldn't tolerate because of Gi issues . Had Reclast infusion 09/08/2022. [facility] Medical History PHYLLIS positive Breast calcification, right Bronchial asthma Diabetes type 2, uncontrolled Dyslipidemia Epidermal inclusion cyst Fibromyalgia Gout of right foot History of primary hyperparathyroidism Hypothyroidism Long-term use of immunosuppressant medication Morbid obesity LONA on CPAP Osteopenia Positive PHYLLIS (antinuclear antibody) Seronegative rheumatoid arthritis Surgical History History of surgery Hx of excision of mass History of kidney surgery S/P breast lumpectomy H/O parathyroidectomy Hx of cholecystectomy H/O tubal ligation Family History Daughter History of breast cancer Father Cirrhosis Diabetes Arthritis Mother Arthritis Sister Diabetes Social History Alcohol intake: never Patient Tobacco Use Status: Former Tobacco user Quit Date: 1991 Tobacco use type: Cigarette Substance Use Type: Marijuana Female Reproductive History Menstrual Age of Menarche: 11 Physical Exam Vital Signs: Last Vital Signs Pulse 81 08/04/23 09:55 BP 122/72 08/04/23 09:55 BMI result Body Mass Index 25.7 Assessment & Plan Assessment & Plan (1) Osteopenia: Code(s): M85.80 - Other specified disorders of bone density and structure, unspecified site Plan: She has low bone mass but is chronically on steroids. This places her at high risk for fracture . Recent DEXA showed decreases in bone density. She received a dose of Reclast in August 2022 Would continue vitamin-D and calcium supplementation . Will check urine NTX when available and assess for 2nd dose of Reclast . Coding Level of Care Code Est Pt Level 3 (96604) Diagnoses Osteopenia M85.80
== END 2023-08-04 16:21 | disposition home or self-care (01) ==
PROVIDERS: PCP Registered Nurse; Referring Provider Registered Nurse; Visit Provider Internal Medicine Endocrinology, Diabetes & Metabolism
DX: M85.80 Other specified disorders of bone density and structure, unspecified site (principal)
CPT/HCPCS: 99213

== ENCOUNTER 2023-10-26 08:53 | Outpatient (REF) | payer MEDICAID, SELFPAY ==
[2023-10-26 09:59] LABS: Estimated Average Glucose 114 mg/dL; Hemoglobin A1c % 5.6 % (<6.0)
[2023-10-26 10:25] LABS: Creatinine Urine 83.55 mg/dL; Microalbum/Creatinine Ratio Ur 7.1 ug/mg cr (<30)
[2023-10-26 10:35] LABS: Alanine Aminotransferase 12 U/L (0-31); Albumin Level 3.6 g/dL (3.5-5.0); Alkaline Phosphatase 38 U/L (39-117); Anion Gap 12 (12-20); Aspartate Amino Transferase 16 U/L (5-31); Bilirubin Total 0.3 mg/dL (0.0-1.0); Blood Urea Nitrogen 32 mg/dL (9-16); Calcium 9.3 mg/dL (8.4-10.2); Carbon Dioxide 32 mmol/L (22-29); Chloride 100 mmol/L (96-108); Estimated Glomerular Filt Rate 29; Glucose Random 111 mg/dL (60-115); Potassium 4.4 mmol/L (3.3-5.1); Sodium 140 mmol/L (135-145)
== END 2023-10-26 08:54 | disposition home or self-care (01) ==
LOC: HO.LAB 08:53
PROVIDERS: Visit Provider Internal Medicine Nephrology
DX: N18.2 Chronic kidney disease, stage 2 (mild) (principal)
CPT/HCPCS: 36415; 80053; 82043; 82570; 83036

== ENCOUNTER 2023-11-23 13:41 | Outpatient (AMB) | payer MEDICAID, SELFPAY ==
--- NOTE | 2023-11-23 13:45 | A.OFFVIS_ITS ---
Intake Vital Signs 11/23/23 13:46 Height 5 ft 2 in Weight 151 lb 3.794 oz BMI 27.7 BP 104/66 Blood Pressure Location Lt brachial Position Sitting Respiration 16 Pulse 64 Pulse Source Pulse Oximeter Temp 97.2 F Temp Source Tympanic Pulse Oximetry (%) 96 Oxygen Delivery Method Room Air Intake Visit Reasons: Fibromyalgia/PHYLLIS + Environmental Sampling Technician Required: Yes Environmental Sampling Technician Name: PT states son will interpret. Accompanied by: Son Allergies aspirin [ASA] Allergy (Intermediate, Verified 11/23/23 13:50) ITCHY, HOT, AND HEADACHE calcium Allergy (Intermediate, Verified 11/23/23 13:50) Vomiting Penicillins Allergy (Intermediate, Verified 11/23/23 13:50) RASH tofacitinib [Xeljanz] Allergy (Intermediate, Verified 11/23/23 13:50) chest pain, headaches sulfasalazine Allergy (Unknown, Verified 11/23/23 13:50) unknown Medication List - Last Reconciled 11/23/23 by Francheska Mcclure RN albuterol sulfate 90 mcg/actuation (ProAir HFA) 2 puffs PO Q6H PRN alcohol swabs (Alcohol Prep Pads) USE DIRECTED SIX TIMES DAILY alendronate 70 mg PO QWEEK allopurinol 100 mg PO QPM aripiprazole (Abilify) 10 mg PO .every 2 days artifi.tears(hypromellose)(PF) 0.3% 1 drp ophthalmic (eye) Q4-6H PRN atorvastatin 20 mg PO DAILY blood sugar diagnostic (FreeStyle Lite Strips) As directed blood-glucose meter (FreeStyle [place] Lite kit) As directed cane As directed cyclobenzaprine 10 mg PO BEDTIME docusate sodium (Colace) 100 mg PO BID furosemide 40 mg PO .every 2 days gabapentin 900 mg PO BEDTIME hydrocodone-acetaminophen 5-325 mg 1 tab PO Q6H PRN irbesartan 75 mg PO DAILY levothyroxine 75 mcg PO DAILY liraglutide (Victoza 3-Ko) 1.8 mg (0.3 mL) subcut DAILY melatonin 10 mg PO BEDTIME PRN metformin ER 1,000 mg PO BID metoprolol tartrate 25 mg PO BID naloxone 4 mg/actuation (Narcan) 1 spray intranasal Q2M omeprazole magnesium (Prilosec OTC) 20 mg PO DAILY pen needle, diabetic (BD Ultra-Fine Milly Pen Needle) USE 1 DAILY WITH VICTOZA polyethylene glycol 3350 (Miralax) 17 grams PO DAILY prednisone 5 mg PO DAILY sennosides (senna) 8.6 mg PO DAILY zolpidem (Ambien) 5 mg PO BEDTIME PRN HPI HPI Comments History of Present Illness Details Ms Saunders 63yoF presents today with her son who helps with translation. She was last seen in the office 02/2022 for widespread pain. Today she presents with the same concerns. The history below is much athe same information she relays today. In addition she takes Allopurinol 100mg QD. The patient presents for evaluation of widespread pains. She was last seen by Dr. Carrillo. She reports that she was on leflunomide 20 mg daily for a presumed seronegative RA and he had stopped it without replacement. She reports her joint felt better when she was taking Leflunomide. Mostly the pains are in her hands, neck, shoulders, lower back, knees and feet. She describes episodes of increased pain sometimes associated with a skin rash and fevers when she goes out in the sun. She continues to believe she has lupus. She does have copy of her visits to Dr. Zeng in [place] from 2012 and . There was a positive PHYLLIS at the time with anti-SOFTWARE ENGINEERING ANALYST positivity. He thought she had lupus. Symptoms were mostly controlled with prednisone at the time. She says she is currently taking 5 mg daily prednisone. Per patient, whenever she tries to stop she develops a crisis. This is characterized by increased pain in the hands and skin rash. She thinks she needs to stay on the prednisone. She does not recall any prior history of being on hydroxychloroquine, methotrexate, azathioprine, Benlysta or any other medications that might have been steroid sparing for lupus. She had also seen Dr. Reyes and Dr. Zepeda in the past. Those records are not currently available. Mostly today she is complaining hand, knee pain. She also continues with painful range of motion in both shoulders, more severe on the right side. She has had injections in the back. She also is said to have fibromyalgia and currently is taking 10 mg of cyclobenzaprine at night and gabapentin 900 mg at night. This does seem to help her with pain at night. She has a history of anxiety, insomnia and depression. She is on no meds from psychiatry currently other than Ambien. The chart indicates possible treatment with Abilify in the past. She recalls previous medications that made her too groggy so she stopped them. She is seen at the [facility] and also has prescribed hydrocodone and Ambien. Prior Visit 02/2022 The patient presents for evaluation of widespread pains. We used the [employer] service to facilitate the history and exam. She was last seen about a year ago by Dr. Ospina. At that point she was on leflunomide 20 mg daily for a presumed seronegative RA. She does not really know her medications so I am not confident she actually took the leflunomide. The chart indicates she last had a refill of this last fall. It is unclear whether she actually had any improvement or whether there was any change since then in her joint pains. Mostly the pains are in her hands, neck, shoulders, lower back, knees and feet. She describes episodes of increased pain sometimes associated with a skin rash and fevers. She thinks she has lupus. She does have copy of her visits to Dr. Zeng in [place] from 2012 and . There was a positive PHYLLIS at the time with anti-SOFTWARE ENGINEERING ANALYST positivity. He thought she had lupus. Symptoms were mostly controlled with prednisone at the time. She says she is currently taking 5 mg daily prednisone. When she tried to stop it a few weeks ago she developed a crisis she says. This was characterized by increased pain in the hands and skin rash. She thinks she needs to stay on the prednisone. She does not recall any prior history of being on hydroxychloroquine, methotrexate, azathioprine, Benlysta or any other medications that might have been steroid sparing for lupus. She had also seen Dr. Reyes and Dr. Zepeda in the past. Those r ecords are not currently available. Mostly today she is complaining of neck and shoulder pain. The neck has spasms and is accompanied by pain in the right shoulder and arm. There is painful range of motion in both shoulders, more severe on the right side. She does not recall any recent or distant history of shoulder or neck injury. She has had injections in the back and wants to have an injection in the neck. She also is said to have fibromyalgia and currently is taking 10 mg of cyclobenzaprine at night and gabapentin 900 mg at night. This does seem to help her with pain at night. She has a history of anxiety, insomnia and depression. She is on no meds from psychiatry currently other than Ambien. The chart indicates possible treatment with Abilify in the past. She recalls previous medications that made her too groggy so she stopped them. She is seen at the [facility] and also has prescribed hydrocodone and Ambien. [facility] Medical History (Updated 11/23/23 @ 14:12 by [facility] SLE (systemic lupus erythematosus related syndrome) Breast calcification, right Long-term use of immunosuppressant medication Positive PHYLLIS (antinuclear antibody) Fibromyalgia History of primary hyperparathyroidism Osteopenia Dyslipidemia Hypothyroidism LONA on CPAP Bronchial asthma Epidermal inclusion cyst Morbid obesity Gout of right foot PHYLLIS positive Seronegative rheumatoid arthritis Diabetes type 2, uncontrolled Surgical History History of surgery Hx of excision of mass History of kidney surgery S/P breast lumpectomy H/O parathyroidectomy Hx of cholecystectomy H/O tubal ligation Family History Daughter History of breast cancer Father Cirrhosis Diabetes Arthritis Mother Arthritis Sister Diabetes Social History Alcohol intake: never Patient Tobacco Use Status: Former Tobacco user Quit Date: 1991 Tobacco use type: Cigarette Substance Use Type: Marijuana Female Reproductive History Menstrual Age of Menarche: 11 Physical Exam Vital Signs: Last Vital Signs Temp 97.2 F 11/23/23 13:46 Pulse 64 11/23/23 13:46 Resp 16 11/23/23 13:46 BP 104/66 11/23/23 13:46 Pulse Ox 96 11/23/23 13:46 Oxygen Delivery Method Room Air 11/23/23 13:46 BMI result Body Mass Index 27.7 APPEARANCE: Patient in no acute distress, groomed, nourished EYES no redness, pupils equal and reactive to light, eyelids normal EARS: External ear normal, canal clear and tympanic membrane normal. NOSE/SINUS: Airflow through both nares, no nasal discharge, no bleeding THROAT: Oral mucosa moist, no ulcerations NECK: No thyromegaly or masses, no adenopathy, trachea midline. HEART: Regular rhythm, S1-S2 heard, no murmurs, rubs or gallops. LUNG: Clear to percussion and auscultation. EXTREMITIES: No edema, no calf tenderness, normal peripheral pulses. NEURO: Oriented and alert x3. No focal weakness. Reflexes symmetric. She walks somewhat unsteadily with a cane complaining of back and leg pain. SKIN: On the left forearm are 2 hyperpigmented nodular lesions. None of these look red or tender. They look like old inflammatory scars. There is no objective evidence of Raynaud's disease. There is similar to areas of hyperpigmented scars over the left buttock region. No scalp lesions or nail changes. JOINT EXAM:.?? Cervical Spine:.? Mild pain with lateral flexion at 10 degrees of rotation at 30 degrees to either side. There is some right paraspinal muscle tenderness. Thoracic Spine:.? No scoliosis.? No tenderness on palpation. Lumbar Spine:.? Alignment normal.? Lumbar pain with flexion of 45 degrees with some paraspinal muscle tenderness. Chest Wall:.? No tenderness, swelling, increased warmth or erythema. Hands: Right:? Normal pain-free range of motion with some mild tenderness across the PIP joints with mild swelling is appreciated. No flexor tendon triggering or tenderness. No thenar atrophy. Left: Mild discomfort with range of motion at the 3rd and 4th fingers. There is slight tenderness at the 3rd and 4th MCP and PIP is with mild swelling is appreciated. Elsewhere no sensory loss, thenar atrophy, tenderness, swelling, increased warmth or erythema. Wrists:.? Mild pain with flexion extension at 75 degrees with some mild tenderness but no swelling, increased warmth or erythema. Elbows:. Normal pain-free range of motion without tenderness, swelling, increased warmth or erythema. Shoulders: Right: Mild to moderate pain with abduction at 90 degrees or with more than 20 degrees of internal or external rotation. Mild anterior, subacromial posterior tenderness. No acromioclavicular joint swelling or tenderness. No supraclavicular or axillary adenopathy. Left: Mild pain with abduction at 100 degrees. Passively she resists motion beyond that. There is similar pain with more than 20 degrees of rotation. There is mild anterior tenderness but no swelling, increased warmth or erythema. Hips:.? Full range of motion with mild lumbar pain with extremes of rotation. No groin pain with motion. Hip bursa: Mild trochanteric tenderness. Knees:.?? Normal pain-free range of motion with mild patellofemoral crepitus. There is some mild medial compartment tenderness without effusion, soft tissue swelling, increased warmth or erythema.? Ankles:? Normal pain-free range of motion with mild tenderness. No swelling, increased warmth or erythema. Feet:? Normal pain-free range of motion with mild tenderness across the insteps and MTP joints but no soft tissue swelling, increased warmth or erythema. Tender points:.? Mild tenderness to digital palpation at the occiput, trapezius, second rib, lateral epicondyle, knees, greater trochanter and gluteal area bilaterally. ? Assessment & Plan Assessment & Plan (1) Positive PHYLLIS (antinuclear antibody): Code(s): R76.8 - Other specified abnormal immunological findings in serum (2) Long-term use of immunosuppressant medication: Code(s): Z79.899 - Other snf (current) drug therapy (3) Spondylosis of lumbar spine: Code(s): M47.816 - Spondylosis without myelopathy or radiculopathy, lumbar region (4) Seronegative rheumatoid arthritis: Code(s): M06.00 - Rheumatoid arthritis without rheumatoid factor, unspecified site Plan #SeroNegative RA/+PHYLLIS: On PE, the appears to have multiple areas of hand pain with some joint swelling. Past history indicates a positive PHYLLIS and anti SOFTWARE ENGINEERING ANALYST antibody 9 years ago. I will update labs for more current assessment. Repeat labs in the past did not show anti ERIC positivity and did show normal complements with normal sed rate. She may not active SLE but I do think there is active inflammation to her hands. Positive antiRNP antibody usually indicate overlapp syndrome as in Mixed Connective tissue disease (MCTD) so it is not unusual that she would have symptoms of RA with some lupus like features such as the sun sensitivity and mouth sores she reports. I think this necessitate that we consider restarting leflunomide 10mg and assess LFTs then increase the dose to 20 mg. We will also recheck some lupus serologies and other RHeum activity measures as well as inflammatory markers. For now I will continue her prednisone dose at 5 mg daily. #Lumbar Spondylosis: She has lower back symptoms due to osteoarthritis. She should continue to follow-up with pain management for the injections and pain control and anxiety treatment from her primary doctor. #[facility] Immuno: Will monitor Lfts and CBC. Patient does not recall side effects on Leflunomide. I spent 45 minutes with her today reviewing her history and physical exam. Follow-up here in 8 weeks to reassess after starting Leflunomide Orders: Orders PHYLLIS Reflex Titer and Pattern Today M06.00 - Rheumatoid arthritis without rheumatoid factor, unspecified site, M32.9 - Systemic lupus erythematosus, unspecified, Z79.899 - Other snf (current) drug therapy Anti-Centromere B Antibodies Today M06.00 - Rheumatoid arthritis without rheumatoid factor, unspecified site, M32.9 - Systemic lupus erythematosus, unspecified, Z79.899 - Other joint terminal attack controller (current) drug therapy Complement C3 Today M06.00 - Rheumatoid arthritis without rheumatoid factor, unspecified site, M32.9 - Systemic lupus erythematosus, unspecified, Z79.899 - Other snf (current) drug therapy Complement C4 Today M06.00 - Rheumatoid arthritis without rheumatoid factor, unspecified site, M32.9 - Systemic lupus erythematosus, unspecified, Z79.899 - Other snf (current) drug therapy C Reactive Protein Today M06.00 - Rheumatoid arthritis without rheumatoid factor, unspecified site, M32.9 - Systemic lupus erythematosus, unspecified, Z79.899 - Other joint terminal attack controller (current) drug therapy Erythrocyte Sedimentation Rate Today M06.00 - Rheumatoid arthritis without rheumatoid factor, unspecified site, M32.9 - Systemic lupus erythematosus, unspecified, Z79.899 - Other snf (current) drug therapy Uric Acid Today M06.00 - Rheumatoid arthritis without rheumatoid factor, unspecified site, M32.9 - Systemic lupus erythematosus, unspecified, Z79.899 - Other joint terminal attack controller (current) drug therapy Immunoglobulins,IgG IgA IgM Today M06.00 - Rheumatoid arthritis without rheumato id factor, unspecified site, M32.9 - Systemic lupus erythematosus, unspecified, Z79.899 - Other joint terminal attack controller (current) drug therapy Immunofixation Pnl, Serum Today M06.00 - Rheumatoid arthritis without rheumatoid factor, unspecified site, M32.9 - Systemic lupus erythematosus, unspecified, Z79.899 - Other joint terminal attack controller (current) drug therapy Erythrocyte Sedimentation Rate 8 Weeks M06.00 - Rheumatoid arthritis without rheumatoid factor, unspecified site C Reactive Protein 8 Weeks M06.00 - Rheumatoid arthritis without rheumatoid factor, unspecified site Anti DNA DS Antibody Today M06.00 - Rheumatoid arthritis without rheumatoid factor, unspecified site, M32.9 - Systemic lupus erythematosus, unspecified, Z79.899 - Other snf (current) drug therapy Anti Extractable Nuclear Ag Today M06.00 - Rheumatoid arthritis without rheumatoid factor, unspecified site, M32.9 - Systemic lupus erythematosus, unspecified, Z79.899 - Other joint terminal attack controller (current) drug therapy Complete Blood Count Auto Diff Today M06.00 - Rheumatoid arthritis without rh eumatoid factor, unspecified site, M32.9 - Systemic lupus erythematosus, unspecified, Z79.899 - Other joint terminal attack controller (current) drug therapy Sjogren's Antibodies Today M06.00 - Rheumatoid arthritis without rheumatoid factor, unspecified site, M32.9 - Systemic lupus erythematosus, unspecified, Z79.899 - Other snf (current) drug therapy T Spot TB Today M06.00 - Rheumatoid arthritis without rheumatoid factor, unspecified site, M32.9 - Systemic lupus erythematosus, unspecified, Z79.899 - Other joint terminal attack controller (current) drug therapy UA w Microscopic Today M06.00 - Rheumatoid arthritis without rheumatoid factor, unspecified site, M32.9 - Systemic lupus erythematosus, unspecified, Z79.899 - Other joint terminal attack controller (current) drug therapy Alanine Aminotransferase Today M06.00 - Rheumatoid arthritis without rheumatoid factor, unspecified site, Z79.899 - Other snf (current) drug therapy Aspartate Amino Transferase Today M06.00 - Rheumatoid arthritis without rheumatoid factor, unspecified site, Z79.899 - Other snf (current) drug therapy Complete Blood Count Auto Diff 8 Weeks M06.00 - Rheumatoid arthritis without rheumatoid factor, unspecified site, Z79.899 - Other snf (current) drug therapy Medications: New leflunomide 10 mg PO DAILY 90 tabs 0RF M06.00 - Rheumatoid arthritis without rheumatoid factor, unspecified site Coding Level of Care Code Est Pt Level 4 (78911) Diagnoses Positive PHYLLIS (antinuclear antibody) R76.8 Long-term use of immunosuppressant medication Z79.899 Spondylosis of lumbar spine M47.816 Seronegative rheumatoid arthritis M06.00
[2023-11-23 13:46] VITALS: BP 104/66; PULSE 64; RESP 16; TEMP 36.2; O2SAT 96; BMI 27.7
== END 2023-11-23 14:37 | disposition home or self-care (01) ==
PROVIDERS: PCP Registered Nurse; Visit Provider Nurse Practitioner Family
DX: R76.8 Other specified abnormal immunological findings in serum (principal); Z79.899 Other long term (current) drug therapy; M47.816 Spondylosis without myelopathy or radiculopathy, lumbar region; M06.00 Rheumatoid arthritis without rheumatoid factor, unspecified site
CPT/HCPCS: 99214

== ENCOUNTER 2023-11-23 13:41 | Outpatient (REF) | payer MEDICAID, SELFPAY ==
[2023-11-23 15:44] LABS: Appearance Urine Clear; Color Urine Yellow; Glucose Urine UA Negative (Negative); Leukocyte Esterase Urine Negative (Negative); Nitrite Urine Negative (Negative); Specific Gravity - Urine <= 1.005 (1.005-1.025); Urine Blood Negative (Negative); Urine Ketones Negative (Negative); Urine Protein Negative (Neg-Trace)
[2023-11-23 15:47] LABS: Bacteria Urine None Seen (None Seen); Hyaline Casts Urine 0-2 /LPF (0-2); RBC Urine 0-2 /HPF (0-2); Squamous Epithelial Cell Urine 0-2 /HPF (0-2); WBC Urine 0-5 /HPF (0-5)
[2023-11-23 15:48] LABS: Basophils Percent Auto 0.4 % (0-2); Eosinophils Absolute Auto 0.2 X10*3/uL (0.0-0.4); Eosinophils Percent Auto 1.4 % (0-4); Hematocrit 38.6 % (37.0-47.0); Hemoglobin 12.4 g/dl (12.0-16.0); Imm Gran Abs Auto 0.04 X10*3/uL (0.00-0.03); Imm Gran Pct Auto 0.4 % (0.0-0.4); Lymphocytes Absolute Auto 1.4 X10*3/uL (1.2-4.9); Lymphocytes Percent Auto 12.2 % (20-40); MANUAL DIFF FLAG SCAN; Mean Corpuscular HGB Conc 32.1 g/dl (31.0-35.0); Mean Corpuscular Volume 90.2 fL (80.0-98.0); Mean Platelet Volume 10.9 fL (9.4-12.3); Monocytes Absolute Auto 0.7 X10*3/uL (0.1-1.2); Monocytes Percent Auto 5.9 % (2-11); Neutrophils Absolute Auto 8.9 x10*3/uL (2.0-8.3); Neutrophils Percent Auto 79.7 % (45-73); PLT CLUMP 1; Red Blood Count 4.28 X10*6/uL (4.20-5.50); Red Cell Distribution Width 13.6 % (11.0-16.0); SCAN SMEAR FLAG 1
[2023-11-23 16:13] LABS: Alanine Aminotransferase 15 U/L (0-31); Aspartate Amino Transferase 19 U/L (5-31); C Reactive Protein 0.23 mg/dL (< or = 0.50); Uric Acid 6.8 mg/dL (2.4-5.7)
[2023-11-23 16:22] LABS: Platelet Count 287 X10*3/uL (160-400); White Blood Count 11.1 X10*3/uL (4.8-10.8)
[2023-11-23 16:24] LABS: SLIDE REVIEW VERIFIED
[2023-11-23 16:35] LABS: Erythrocyte Sedimentation Rate 33 MM/HR (0-20)
[2023-11-24 12:28] LABS: Complement C3 138 mg/dL (83-193)
[2023-11-25 12:43] LABS: Anti-Centromere B Antibodies <1.0 NEG AI (<1.0 NEG)
[2023-11-25 19:23] LABS: Anti DNA DS Antibody <1 IU/mL; Antibody to SS-A Antigen <1.0 NEG AI (<1.0 NEG); Antibody to SS-B Antigen <1.0 NEG AI (<1.0 NEG); SM/Ribonucleoprotein Ab <1.0 NEG AI (<1.0 NEG); Smith Protein <1.0 NEG AI (<1.0 NEG)
[2023-11-25 22:53] LABS: TS Negative Control Passed; TS Panel A 0; TS Panel B 0; TS Positive Control Passed; TSpotTB Negative (Negative)
[2023-11-26 10:30] LABS: IgA 285 mg/dL (70-320); IgG 1244 mg/dL (600-1540); IgM 66 mg/dL (50-300)
[2023-12-01 14:54] LABS: Anti Nuclear Antibody Screen POSITIVE (NEGATIVE); Anti Nuclear Antibody Titer > OR = 1:1280 titer
== END 2023-11-23 13:42 | disposition home or self-care (01) ==
LOC: HO.LAB 13:41
PROVIDERS: PCP Registered Nurse; Visit Provider Nurse Practitioner Family
DX: M06.00 Rheumatoid arthritis without rheumatoid factor, unspecified site (principal); M32.9 Systemic lupus erythematosus, unspecified; Z79.899 Other long term (current) drug therapy
CPT/HCPCS: 36415; 81001; 82784; 84450; 84460; 84550; 85025; 85652; 86038; 86039; 86140; 86160; 86225; 86235; 86334; 86481; 99212

== ENCOUNTER 2024-01-04 10:05 | Outpatient (AMB) | payer MEDICAID, SELFPAY ==
--- NOTE | 2024-01-04 10:08 | MHC.OFFVIS ---
Intake Vital Signs 01/04/24 10:26 Height 5 ft 2 in Weight 151 lb BMI 27.6 BP 108/70 Blood Pressure Location Lt brachial Position Sitting Respiration 14 Pulse 82 Pulse Source Pulse Oximeter Pulse Oximetry (%) 96 Oxygen Delivery Method Room Air Intake Visit Reasons: Follow Up/Spondylosis/LVM Intake Note: Patient comes in for follow up. Reports pain 07/10. Allergies aspirin [ASA] Allergy (Intermediate, Verified 01/04/24 10:27) ITCHY, HOT, AND HEADACHE calcium Allergy (Intermediate, Verified 01/04/24 10:27) Vomiting Penicillins Allergy (Intermediate, Verified 01/04/24 10:27) RASH tofacitinib [Xeljanz] Allergy (Intermediate, Verified 01/04/24 10:27) chest pain, headaches sulfasalazine Allergy (Unknown, Verified 01/04/24 10:27) unknown HPI HPI Comments History of Present Illness Details Nicky is back in the office 1 year after 2nd radiofrequency ablation of L3-L4 does ramus L5 medial branches which was performed on in February of 2023. Before that she had bilateral L3 L4 DR L5 MBB radiofrequency ablation on 01/01/22. The 1st injection she reported 100% pain improvement. However the 2nd injection she reported only 50% pain improvement. Now her complaints changed and she reports pain in the lumbar spine with radiation of the pain into the left lower extremity. SLR is positive for pain increase. I suspect radiculopathy now. I will schedule her for the MRI of the lumbar spine. After the MRI she will schedule appointment with me and we will discuss the results of the study. PRIOR: Nicky is a pleasant 60 year old female who presents to the office with complaints of low back pain. She states the pain started years ago without any inciting events, but in the past few months has been more exacerbated. She reports the pain starts in her low back and radiates laterally down bilateral legs into thighs with associated weakness, burning and numbness. She denies any saddle anesthesia or bowel/bladder dysfunction. She is currently ambulating with a cane. She was referred here by Dr. Ballard for her low back pain and has a history of seronegative RA managed with Prednisone 5mg daily and Leflunomide 20mg daily. The pain is worse in the morning and less severe at night time.? She reports pain onset was sudden, constant and rates the pain 8/10. She states the pain is interfering with sleep, activities of daily living and she cannot function normally.? The patient reports the pain in terms of tissue damage as sharp, cramping and burning. Her pain is exacerbated by movement and activity. She has been taking Vicodin 5 mg QID and flexeril , both prescribed by her PCP, with some improvement in her pain. She has also tried topicals with minimal effect. She has tried physical therapy in the past with no improvement in her pain.? Denies any chiropractic manipulation, massage or acupuncture. She states receiving two injections in the past with short lived pain relief. It was noted in [facility] that she had a TFESI in 2011 with 11 months of pain relief. Denies any previous back surgery. She last had imaging of the lumbar spine in 2019, report dictated [facility] Medical History (Updated 01/04/24 @ 10:25 by Sharath Parish MD) SLE (systemic lupus erythematosus related syndrome) Breast calcification, right Long-term use of immunosuppressant medication Positive PHYLLIS (antinuclear antibody) Fibromyalgia History of primary hyperparathyroidism Osteopenia Dyslipidemia Hypothyroidism LONA on CPAP Bronchial asthma Epidermal inclusion cyst Morbid obesity Gout of right foot PHYLLIS positive Seronegative rheumatoid arthritis Diabetes type 2, uncontrolled Surgical History History of surgery Hx of excision of mass History of kidney surgery S/P breast lumpectomy H/O parathyroidectomy Hx of cholecystectomy H/O tubal ligation Family History Daughter History of breast cancer Father Cirrhosis Diabetes Arthritis Mother Arthritis Sister Diabetes Social History Alcohol intake: never Patient Tobacco Use Status: Former Tobacco user Quit Date: 1991 Tobacco use type: Cigarette Substance Use Type: Marijuana Female Reproductive History Menstrual Age of Menarche: 11 Review of Systems Const All systems reviewed & are unremarkable except as noted in HPI and below ENT Denies Normal hearing present Neuro Denies Normal hearing present, Denies Abnormal speech present and Denies confusion Psych Denies confusion Physical Exam Const General: cooperative, healthy appearing, no acute distress, alert and well groomed; No confusion Orientation/consciousness: patient oriented x3 and No confusion Limitations: no limitations HEENT Head: Yes normocephalic and Yes atraumatic Ears: hearing grossly normal bilaterally Eyes General: appearance normal, both eyes and all related structures Eyelids: Yes eyelids normal Pupils: Equal, round and reactive pupils present EOM: EOMs intact bilaterally Neck Neck: Yes normal visual inspection and Yes no JVD Resp Effort & Inspection: normal respiratory effort, able to speak in complete sentences and no audible wheezes Cardio Jugular venous distension: no JVD Back/Spine/Pelvis Other: Tenderness on palpation in paraspinal spinal region of the lumbar spine. SLR is positive on the left. Neuro General: patient oriented x3, gait normal, moves all extremities and No confusion Cranial nerves: Yes Equal, round and reactive pupils present and No Normal hearing present Speech: No Abnormal speech present Results Reviewed Results Reviewed: LUMBAR SPINE XRAY FINDINGS: There is no evidence of acute fracture, spondylolisthesis, or spondylolysis. Pedicles are intact. There is some mild marginal spurring seen at multiple levels. There is mild narrowing of the L5-S1 disc space. There are some mild posterior partially calcified disc bulge is present at the L to 3, L3-L4, and L4-L5 levels. There is some facet arthropathy seen involving the right L5-S1 facet joint. No significant degenerative change of the sacroiliac joints is noted. Prominent vascular calcifications are present. IMPRESSION: No acute fracture, spondylolisthesis, or spondylolysis of the lumbar spine. Spondylosis as described with narrowing of the L5-S1 disc space and some facet arthropathy. Posterior disc bulges as described. Assessment & Plan Assessment & Plan (1) Spondylosis of lumbar spine: Code(s): M47.816 - Spondylosis without myelopathy or radiculopathy, lumbar region Plan: (2) Radiculopathy, lumbar region: Code(s): M54.16 - Radiculopathy, lumbar region (3) Disc degeneration, lumbar: Code(s): M51.36 - Other intervertebral disc degeneration, lumbar region Plan Nicky underwent a bilateral L3 L4 DR L5 MBB radiofrequency ablation on 12/29/21 and reports 100% sustained relief for 10 months. After that she went for the same procedure on 03/02/2023 and reported only 50% pain improvement. Now her pattern of pain had changed. She reports the pain in the lower back with radiation into the left lower extremity. SLR is positive on the left. I suspect radiculopathy lumbar. I will schedule this patient for the MRI of the lumbar spine. As soon as she will complete the MRI she will schedule appointment with me. We will discuss the results and plan further treatment after that. Orders: Orders MR lumbar spine wo con Today M47.816 - Spondylosis without myelopathy or radiculopathy, lumbar region, M51.36 - Other intervertebral disc degeneration, lumbar region, M54.16 - Radiculopathy, lumbar region Patient Instructions: Patient's relative helped to interpret conversation from Maltese to Kiswahili. I here by testify that I spent 32 minutes in conversation with this patient as well as planning her care and organizing this note. Coding Level of Care Code Est Pt Level 4 (02029) Diagnoses Spondylosis of lumbar spine M47.816 Radiculopathy, lumbar region M54.16 Disc degeneration, lumbar M51.36
[2024-01-04 10:26] VITALS: BP 108/70; PULSE 82; RESP 14; O2SAT 96; BMI 27.6
== END 2024-01-04 10:23 | disposition home or self-care (01) ==
PROVIDERS: PCP Registered Nurse; Visit Provider Anesthesiology
DX: M47.816 Spondylosis without myelopathy or radiculopathy, lumbar region (principal); M54.16 Radiculopathy, lumbar region; M51.36 Other intervertebral disc degeneration, lumbar region
CPT/HCPCS: 99214

== ENCOUNTER → 2024-01-04 10:05 | Outpatient (BNVA) | payer MEDICAID, SELFPAY | PROVIDERS: PCP Registered Nurse; Visit Provider Anesthesiology | DX: M47.816 Spondylosis without myelopathy or radiculopathy, lumbar region (principal); M54.16 Radiculopathy, lumbar region; M51.36 Other intervertebral disc degeneration, lumbar region | CPT/HCPCS: 99212 ==

== ENCOUNTER 2024-01-20 09:32 | Outpatient (AMB) | payer MEDICAID, SELFPAY ==
--- NOTE | 2024-01-20 09:43 | A.OFFVIS_ITS ---
Intake Intake Visit Reasons: SeroNeg RA/CONFIRMED Intake Note: Patient last seen 11/23/23 by Cristiano, presents today for follow up and test results. Patient reports discontinuing Leflunomide due to THOMAS and nausea. Professional Development Manager Required: Yes Professional Development Manager Name: Son Information Interpreted: non-clinical & clinical Accompanied by: Self / Same As Patient Allergies aspirin [ASA] Allergy (Intermediate, Verified 01/20/24 09:49) ITCHY, HOT, AND HEADACHE calcium Allergy (Intermediate, Verified 01/20/24 09:49) Vomiting Penicillins Allergy (Intermediate, Verified 01/20/24 09:49) RASH tofacitinib [Xeljanz] Allergy (Intermediate, Verified 01/20/24 09:49) chest pain, headaches sulfasalazine Allergy (Unknown, Verified 01/20/24 09:49) unknown HPI HPI Comments History of Present Illness Details Ms Nicky Juarez presents today with her son who helps with translation. She is here to review her lab work and to discuss possible treatment. She she continues to describe widespread pain. She still some small ulcers on her coccyx area and says when her lupus is active she gets the sores as she continues to share that she was diagnosed with lupus sometime ago. Today the patient is now saying she could not tolerate taking leflunomide because it caused her severe abdominal pain. In addition she takes Allopurinol 100mg QD for gout. She continues on prednisone 5 mg daily, and takes Percocet 11/23/2023 Jolly: Ms Nicky Juarez presents today with her son who helps with translation. She was last seen in the office 02/2022 for widespread pain. Today she presents with the same concerns. The history below is much of the same information she relays today. In addition she takes Allopurinol 100mg QD. The patient presents for evaluation of widespread pains. She was last seen by Dr. Carrillo. She reports that she was on leflunomide 20 mg daily for a presumed seronegative RA and he had stopped it without replacement. She reports her joint felt better when she was taking Leflunomide. Mostly the pains are in her hands, neck, shoulders, lower back, knees and feet. She describes episodes of increased pain sometimes associated with a skin rash and fevers when she goes out in the sun. She continues to believe she has lupus. She does have copy of her visits to Dr. Zeng in [place] from 2012 and . There was a positive PHYLLIS at the time with anti-MICROPHONE OPERATOR positivity. He thought she had lupus. Symptoms were mostly controlled with prednisone at the time. She says she is currently taking 5 mg daily prednisone. Per patient, whenever she tries to stop she develops a crisis. This is characterized by increased pain in the hands and skin rash. She thinks she needs to stay on the prednisone. She does not recall any prior history of being on hydroxychloroquine, methotrexate, azathioprine, Benlysta or any other medications that might have been steroid sparing for lupus. She had also seen Dr. Reyes and Dr. Zepeda in the past. Those records are not currently available. Mostly today she is complaining hand, knee pain. She also continues with painful range of motion in both shoulders, more severe on the right side. She has had injections in the back. She also is said to have fibromyalgia and currently is taking 10 mg of cyclobenzaprine at night and gabapentin 900 mg at night. This does seem to help her with pain at night. She has a history of anxiety, insomnia and depression. She is on no meds from psychiatry currently other than Ambien. The chart indicates possible treatment with Abilify in the past. She recalls previous medications that made her too groggy so she stopped them. She is seen at the [facility] and also has prescribed hydrocodone and Ambien. Prior Visit 02/2022 The patient presents for evaluation of widespread pains. We used the translating service to facilitate the history and exam. She was last seen about a year ago by Dr. Ospina. At that point she was on leflunomide 20 mg daily for a presumed seronegative RA. She does not really know her medications so I am not confident she actually took the leflunomide. The chart indicates she last had a refill of this last fall. It is unclear whether she actually had any improvement or whether there was any change since then in her joint pains. Mostly the pains are in her hands, neck, shoulders, lower back, knees and feet. She describes episodes of increased pain sometimes associated with a skin rash and fevers. She thinks she has lupus. She does have copy of her visits to Dr. Zeng in [place] from 2012 and . There was a positive PHYLLIS at the time with anti-MICROPHONE OPERATOR positivity. He thought she had lupus. Symptoms were mostly controlled with prednisone at the time. She says she is currently taking 5 mg daily prednisone. When she tried to stop it a few weeks ago she developed a crisis she says. This was characterized by increased pain in the hands and skin rash. She thinks she needs to stay on the prednisone. She does not recall any prior history of being on hydroxychloroquine, methotrexate, azathioprine, Benlysta or any other medications that might have been steroid sparing for lupus. She had also seen Dr. Reyes and Dr. Zepeda in the past. Those records are not currently available. Mostly today she is complaining of neck and shoulder pain. The neck has spasms and is accompanied by pain in the right shoulder and arm. There is painful range of motion in both shoulders, more severe on the right side. She does not recall any recent or distant history of shoulder or neck injury. She has had injections in the back and wants to have an injection in the neck. She also is said to have fibromyalgia and currently is taking 10 mg of cyclobenzaprine at night and gabapentin 900 mg at night. This does seem to help her with pain at night. She has a history of anxiety, insomnia and depression. She is on no meds from psychiatry currently other than Ambien. The chart indicates possible treatment with Abilify in the past. She recalls previous medications that made her too groggy so she stopped them. She is seen at the [facility] and also has prescribed hydrocodone and Ambien. [facility] Medical History (Updated 01/23/24 @ 16:47 by ELIAS Garcia) Gout SLE (systemic lupus erythematosus related syndrome) Breast calcification, right Long-term use of immunosuppressant medication Positive PHYLLIS (antinuclear antibody) Fibromyalgia History of primary hyperparathyroidism Osteopenia Dyslipidemia Hypothyroidism LONA on CPAP Bronchial asthma Epidermal inclusion cyst Morbid obesity Gout of right foot PHYLLIS positive Seronegative rheumatoid arthritis Diabetes type 2, uncontrolled Surgical History History of surgery Hx of excision of mass History of kidney surgery S/P breast lumpectomy H/O parathyroidectomy Hx of cholecystectomy H/O tubal ligation Family History Daughter History of breast cancer Father Cirrhosis Diabetes Arthritis Mother Arthritis Sister Diabetes Social History Alcohol intake: never Patient Tobacco Use Status: Former Tobacco user Quit Date: 1991 Tobacco use type: Cigarette Substance Use Type: Marijuana Female Reproductive History Menstrual Age of Menarche: 11 Physical Exam APPEARANCE: Patient in no acute distress, groomed, nourished EYES no redness, eyelids normal EARS: External ear normal, NECK: No thyromegaly or masses, no adenopathy, trachea midline. HEART: Regular rhythm, S1-S2 heard, no murmurs, rubs or gallops. LUNG: Clear to percussion and auscultation. EXTREMITIES: No edema, no calf tenderness, normal peripheral pulses. NEURO: Oriented and alert x3. No focal weakness. Reflexes symmetric. She walks somewhat unsteadily with a cane complaining of back and leg pain. SKIN: On the left forearm are 2 hyperpigmented nodular lesions. None of these look red or tender. They look like old inflammatory scars. There is no objective evidence of Raynaud's disease. There is similar to areas of hyperpigmented scars over the left buttock region. There are free small macular lesions to her coccyx area that she says happens when her lupus flares. No scalp lesions or nail changes. JOINT EXAM:.?? Cervical Spine:.? Mild pain with lateral flexion at 10 degrees of rotation at 30 degrees to either side. There is some right paraspinal muscle tenderness. Thoracic Spine:.? No scoliosis.? No tenderness on palpation. Lumbar Spine:.? Alignment normal.? Lumbar pain with flexion of 45 degrees with some paraspinal muscle tenderness. Chest Wall:.? No tenderness, swelling, increased warmth or erythema. Hands: Right:? Normal pain-free range of motion with some mild tenderness across the PIP joints with no more mild swelling is appreciated. No flexor tendon triggering or tenderness. No thenar atrophy. Left: Mild discomfort with range of motion at the 3rd and 4th fingers. There is slight tenderness at the 3rd and 4th MCP and PIP is with no more mild swelling is appreciated. Elsewhere no sensory loss, thenar atrophy, tenderness, swelling, increased warmth or erythema. Wrists:.? Mild pain with flexion extension at 75 degrees with some mild tenderness but no swelling, increased warmth or erythema. Elbows:. Normal pain-free range of motion without tenderness, swelling, increased warmth or erythema. Shoulders: Right: Mild to moderate pain with abduction at 90 degrees or with more than 20 degrees of internal or external rotation. Mild anterior, subacromial posterior tenderness. No acromioclavicular joint swelling or tenderness. No supraclavicular or axillary adenopathy. Left: Mild pain with abduction at 100 degrees. Passively she resists motion beyond that. There is similar pain with more than 20 degrees of rotation. There is mild anterior tenderness but no swelling, increased warmth or erythema. Hips:.? Full range of motion with mild lumbar pain with extremes of rotation. No groin pain with motion. Hip bursa: Mild trochanteric tenderness. Knees:.?? Normal pain-free range of motion with mild patellofemoral crepitus. There is some mild medial compartment tenderness without effusion, soft tissue swelling, increased warmth or erythema.? Ankles:? Normal pain-free range of motion with mild tenderness. No swelling, increased warmth or erythema. Feet:? Normal pain-free range of motion with mild tenderness across the insteps and MTP joints but no soft tissue swelling, increased warmth or erythema. Tender points:.? Mild tenderness to digital palpation at the occiput, trapezius, second rib, lateral epicondyle, knees, greater trochanter and gluteal area bilaterally. ? Results Reviewed Results Reviewed: Laboratory Tests 11/23/23 11/23/23 11/23/23 15:12 15:12 15:17 WBC 11.1 H ESR 33 H Uric Acid 6.8 H IgG Total 1244 IgA Total 285 IgM 66 PHYLLIS Titer > OR = 1:1280 A PHYLLIS Titer 2 1:80 H SS-A/Ro Antibody <1.0 NEG SS-B/La Antibody <1.0 NEG Sm (Wills) Antibody <1.0 NEG Double Strand DNA Ab <1 Centromere B Antibody <1.0 NEG Complement C3 138 Complement C4 40 Assessment & Plan Assessment & Plan (1) Long-term use of immunosuppressant medication: Comment: Leflunomide cause headache and NV Code(s): Z79.899 - Other terminal manager (current) drug therapy (2) Spondylosis of lumbar spine: Code(s): M47.816 - Spondylosis without myelopathy or radiculopathy, lumbar region (3) Seronegative rheumatoid arthritis: Code(s): M06.00 - Rheumatoid arthritis without rheumatoid factor, unspecified site (4) Gout: Code(s): M10.9 - Gout, unspecified Qualifiers: Gout site: unspecified site Gout etiology: idiopathic Chronicity: chronic Presence of tophus: without tophus Qualified Code(s): M1A.00X0 - Idiopathic chronic gout, unspecified site, without tophus (tophi) Plan #SeroNegative RA/Overlap Syndrome: On PE, the appears to have multiple areas of hand pain with some joint swelling. Past history indicates a positive PHYLLIS and anti MICROPHONE OPERATOR antibody 9 years ago. I will update labs for more current assessment. Repeat labs in the past did not show anti ERIC positivity and did show normal complements with normal sed rate. She may not active acttive SLE but I do think there is active inflammation to her hands. Positive antiRNP antibody usually indicate overlapp syndrome as in Mixed Connective tissue disease (MCTD) so it is not unusual that she would have symptoms of RA with some lupus like features such as the sun sensitivity and mouth sores she reports. Given all of this, I have recommended that we restart leflunomide but the patient is now saying no because it gave her abdominal in the past which is now different from her rendition. Given that her activity measures are normal for lupus such as her C3 and her C4, For now I will continue her prednisone dose at 5 mg daily. #Elevated uric acid/Gout: 6.8 - will increase allopurinol to 200 mg q.d.. I spent 25 minutes with her today reviewing her history and physical exam. Follow-up here in 8 weeks to reassess improvement on allopurinol. Medications: Changed From allopurinol 100 mg PO QPM 30 tabs 3RF M10.9 - Gout, unspecified To allopurinol 200 mg (2 x 100 mg) PO QPM 60 tabs 3RF M10.9 - Gout, unspecified Coding Level of Care Code Est Pt Level 3 (54780) Diagnoses Long-term use of immunosuppressant medication Z79.899 Spondylosis of lumbar spine M47.816 Seronegative rheumatoid arthritis M06.00 Idiopathic chronic gout without tophus, unspecified site M1A.00X0 Gout site: unspecified site Gout etiology: idiopathic Chronicity: chronic Presence of tophus: without tophus
== END 2024-01-20 10:31 | disposition home or self-care (01) ==
PROVIDERS: PCP Registered Nurse; Visit Provider Nurse Practitioner Family
DX: Z79.899 Other long term (current) drug therapy (principal); M47.816 Spondylosis without myelopathy or radiculopathy, lumbar region; M06.00 Rheumatoid arthritis without rheumatoid factor, unspecified site; M1A.00X0 Idiopathic chronic gout, unspecified site, without tophus (tophi)
CPT/HCPCS: 99213

== ENCOUNTER → 2024-01-20 09:32 | Outpatient (BNVA) | payer MEDICAID, SELFPAY | PROVIDERS: PCP Registered Nurse; Visit Provider Nurse Practitioner Family | DX: M06.00 Rheumatoid arthritis without rheumatoid factor, unspecified site (principal); M1A.00X0 Idiopathic chronic gout, unspecified site, without tophus (tophi); M47.816 Spondylosis without myelopathy or radiculopathy, lumbar region; M79.7 Fibromyalgia; Z79.52 Long term (current) use of systemic steroids; Z79.60 Long term (current) use of unspecified immunomodulators and immunosuppressants; Z79.899 Other long term (current) drug therapy | CPT/HCPCS: 99212 ==

== ENCOUNTER 2024-02-08 15:16 | Outpatient (REF) | payer MEDICAID, SELFPAY ==
[2024-02-08 16:10] LABS: MANUAL DIFF FLAG NO
[2024-02-08 16:22] LABS: Basophils Percent Auto 0.3 % (0-2); Eosinophils Absolute Auto 0.2 X10*3/uL (0.0-0.4); Eosinophils Percent Auto 1.6 % (0-4); Hematocrit 39.7 % (37.0-47.0); Hemoglobin 12.9 g/dl (12.0-16.0); Imm Gran Abs Auto 0.06 X10*3/uL (0.00-0.03); Imm Gran Pct Auto 0.6 % (0.0-0.4); Lymphocytes Absolute Auto 1.9 X10*3/uL (1.2-4.9); Mean Corpuscular HGB Conc 32.5 g/dl (31.0-35.0); Mean Corpuscular Hemoglobin 28.8 pg (27.0-33.0); Mean Corpuscular Volume 88.6 fL (80.0-98.0); Mean Platelet Volume 9.7 fL (9.4-12.3); Monocytes Absolute Auto 0.6 X10*3/uL (0.1-1.2); Monocytes Percent Auto 6.3 % (2-11); Neutrophils Absolute Auto 6.9 x10*3/uL (2.0-8.3); Neutrophils Percent Auto 71.2 % (45-73); Platelet Count 416 X10*3/uL (160-400); Red Blood Count 4.48 X10*6/uL (4.20-5.50); Red Cell Distribution Width 14.9 % (11.0-16.0); White Blood Count 9.6 X10*3/uL (4.8-10.8)
[2024-02-08 17:44] LABS: C Reactive Protein 0.16 mg/dL (< or = 0.50)
[2024-02-08 17:47] LABS: Erythrocyte Sedimentation Rate 38 MM/HR (0-20)
== END 2024-02-08 15:17 | disposition home or self-care (01) ==
LOC: HO.HHCL 15:16
PROVIDERS: Visit Provider Nurse Practitioner Family
DX: M06.00 Rheumatoid arthritis without rheumatoid factor, unspecified site (principal); Z79.899 Other long term (current) drug therapy
CPT/HCPCS: 36415; 85025; 85652; 86140

== ENCOUNTER 2024-02-14 10:15 | Outpatient (REF) | payer MEDICAID, SELFPAY ==
--- NOTE | ~2024-02-14 | MR_ITS ---
EXAMINATION: MR LUMBAR SPINE WITHOUT CONTRAST CLINICAL INFORMATION: Radiculopathy, spondylosis, lower back pain, bilateral leg pain COMPARISON: None TECHNIQUE: MRI of the lumbar spine was obtained using routine sequences without contrast. FINDINGS: Normal anatomic alignment. No suspicious marrow signal or focal osseous lesion. No significant marrow edema. L3 vertebral body hemangioma. Mild multilevel fatty endplate marrow signal changes. The vertebral body heights are maintained. Disc desiccation from L2-L3 to L5-S1. The conus medullaris terminates at the level of L1-L2. The distal spinal cord is normal in appearance. The cauda equina nerve roots appear normal. No significant abnormalities of the paraspinal musculature. There is some edema of the lower right paravertebral musculature. Right renal atrophy and cortical scarring. Several small right renal cyst which do not require further imaging follow-up. The abdominal aorta is of normal contour and caliber. SPINAL LEVELS: T12-L1: No significant spinal canal or neural foraminal narrowing L1-L2: No significant spinal canal or neuroforaminal narrowing. L2-L3: No significant spinal canal or neuroforaminal narrowing. Shallow disc bulge and mild facet arthropathy. L3-L4: No significant spinal canal or neuroforaminal narrowing. Shallow disc bulge and mild facet arthropathy. L4-L5: Mild facet arthropathy with small joint fluid. Shallow disc bulge with superimposed right foraminal protrusion. No significant central spinal canal stenosis. Right greater than left subarticular zone narrowing. Moderate to severe right neural foraminal narrowing with possible impingement of the exiting right L4 nerve root. L5-S1: No significant spinal canal or neuroforaminal narrowing. Small central disc protrusion and mild facet arthropathy. MR/MR lumbar spine wo con IMPRESSION: 1. At L4-L5, there is a right foraminal disc protrusion which contributes to moderate to severe right neural foraminal narrowing with possible impingement of the exiting right L4 nerve root. There is also right greater than left subarticular zone narrowing at this level. 2. No other significant canal or neural foraminal stenosis. 3. Mild edema of the lower right paravertebral musculature 4. Right renal atrophy and cortical scarring. Correlate with clinical history.
== END 2024-02-14 10:16 | disposition home or self-care (01) ==
LOC: HO.MRI 10:15
PROVIDERS: Visit Provider Anesthesiology
DX: M51.36 Other intervertebral disc degeneration, lumbar region (principal); M54.16 Radiculopathy, lumbar region; M47.816 Spondylosis without myelopathy or radiculopathy, lumbar region
CPT/HCPCS: 72148

== ENCOUNTER 2024-02-22 11:16 | Outpatient (AMB) | payer MEDICAID, SELFPAY ==
--- NOTE | 2024-02-22 11:32 | MHC.OFFVIS ---
Vital Signs 02/22/24 11:33 Height 5 ft 2 in Weight 142 lb 3.17 oz BMI 26.0 BP 110/80 Blood Pressure Location Lt brachial Position Sitting Pulse 67 Pulse Source Pulse Oximeter Pulse Oximetry (%) 100 Oxygen Delivery Method Room Air Intake Visit Reasons: sleep apnea Intake Note: pt is here for follow up and using cpap at night no problems Paper Mill Superintendent Required: No Allergies aspirin [ASA] Allergy (Intermediate, Verified 02/22/24 11:43) ITCHY, HOT, AND HEADACHE calcium Allergy (Intermediate, Verified 02/22/24 11:43) Vomiting Penicillins Allergy (Intermediate, Verified 02/22/24 11:43) RASH tofacitinib [Xeljanz] Allergy (Intermediate, Verified 02/22/24 11:43) chest pain, headaches sulfasalazine Allergy (Unknown, Verified 02/22/24 11:43) unknown Medication List - Last Reconciled 02/22/24 by Radha Whitfield MD adalimumab (Humira(CF) Pen) 40 mg (0.4 mL) subcut Q2W albuterol sulfate 90 mcg/actuation (ProAir HFA) 2 puffs PO Q6H PRN alcohol swabs (Alcohol Prep Pads) USE DIRECTED SIX TIMES DAILY alendronate 70 mg PO QWEEK allopurinol 200 mg (2 x 100 mg) PO QPM aripiprazole (Abilify) 10 mg PO .every 2 days artifi.tears(hypromellose)(PF) 0.3% 1 drp ophthalmic (eye) Q4-6H PRN atorvastatin 20 mg PO DAILY blood sugar diagnostic (FreeStyle Lite Strips) As directed blood-glucose meter (FreeStyle [place] Lite kit) As directed cane As directed cyclobenzaprine 10 mg PO BEDTIME docusate sodium (Colace) 100 mg PO BID furosemide 40 mg PO .every 2 days gabapentin 900 mg PO BEDTIME hydrocodone-acetaminophen 5-325 mg 1 tab PO Q6H PRN irbesartan 75 mg PO DAILY levothyroxine 75 mcg PO DAILY liraglutide (Victoza 3-Ko) 1.8 mg (0.3 mL) subcut DAILY melatonin 10 mg PO BEDTIME PRN metformin ER 1,000 mg PO BID metoprolol tartrate 25 mg PO BID naloxone 4 mg/actuation (Narcan) 1 spray intranasal Q2M omeprazole magnesium (Prilosec OTC) 20 mg PO DAILY pen needle, diabetic (BD Ultra-Fine Milly Pen Needle) USE 1 DAILY WITH VICTOZA polyethylene glycol 3350 (Miralax) 17 grams PO DAILY prednisone 5 mg PO DAILY sennosides (senna) 8.6 mg PO DAILY zolpidem (Ambien) 5 mg PO BEDTIME PRN Do you need a note to return to daycare/school/sports/work: No HPI HPI sleep apnea: Details: CHERIE , 63 YEARS OLD, SLOVENIAN SPEAKING FEMALE WHO IS HERE WITH HER SON TODAY, WHO IS THE OVEN ROASTER, COMES TO SEE ME AFTER ALMOST 1 YEAR. SHE DOES HAVE MILD CHRONIC ASTHMA, AND HAS TO USE ALBUTEROL INHALER( VENTOLIN ) Q 6 HOURS P.R.N.. WHICH SHE USES ONLY ONCE IN A WHILE. .SHE HAS OF A NORMAL WEIGHT BUT HAS ROUND FACE, AND SHE HAS A CONFIRMED CASE OF OBSTRUCTIVE SLEEP APNEA. SHE HAS BEEN USING CPAP REGULARLY FOR LONG TIME, HER MACHINE DOES NOT TRANSMIT DATA FOR RECORDING THE COMPLIANCE. SHE CLAIMS THAT SHE IS USING HER CPAP REGULARLY EVERY NIGHT. HOWEVER MOST OF HER COMPLAINT TODAY IS PAIN IN THE NECK, RIGHT SHOULDER AREA, AND GOING UP TO THE OCCIPITAL AREA OF THE SKULL, ESPECIALLY AT NIGHT. AND SHE IS THINKING THAT THIS IS DUE TO THE STRAP OF HER FACIAL MASK, CAUSING THE PAIN. SO SHE HAS NOT USE THE CPAP FOR A FEW DAYS, HOWEVER SHE ALSO CLAIMS THAT WITHOUT THE CPAP SHE DOES NOT SLEEP WELL.. IT SHOULD BE NOTED THAT VINCENT MURILLO HAS MULTIPLE MEDICAL ISSUES AND ESPECIALLY, GENERALIZED ARTHRITIS. IN ADDITION TO EXTENSIVE MEDICAL REGIMEN FOR ARTHRITIS, ANXIETY, DIABETES MELLITUS, HYPERTENSION SHE IS ALSO ON HUMIRA INJECTIONS . THE PAIN THAT SHE DESCRIBES IN THE NECK AND GOING UP TO THE SCALP BY IS DEFINITELY RELATED TO DEGENERATIVE ARTHRITIS OF THE SPINE. [facility] Medical History Gout SLE (systemic lupus erythematosus related syndrome) Breast calcification, right Long-term use of immunosuppressant medication Positive PHYLLIS (antinuclear antibody) Fibromyalgia History of primary hyperparathyroidism Osteopenia Dyslipidemia Hypothyroidism LONA on CPAP Bronchial asthma Epidermal inclusion cyst Morbid obesity Gout of right foot PHYLLIS positive Seronegative rheumatoid arthritis Diabetes type 2, uncontrolled Surgical History History of surgery Hx of excision of mass History of kidney surgery S/P breast lumpectomy H/O parathyroidectomy Hx of cholecystectomy H/O tubal ligation Family History Daughter History of breast cancer Father Cirrhosis Diabetes Arthritis Mother Arthritis Sister Diabetes Social History Alcohol intake: never Patient Tobacco Use Status: Former Tobacco user Quit Date: 1991 Tobacco use type: Cigarette Substance Use Type: Marijuana Female Reproductive History Menstrual Age of Menarche: 11 Review of Systems Const All systems reviewed & are unremarkable except as noted in HPI and below Eyes Reports no additional complaints ENT Reports nasal congestion (Mild off and on) Card Denies chest pain, Denies irregular heart rhythm and Denies leg edema Resp Reports as per HPI GI Reports no additional complaints Reports no additional complaints Musc Reports back pain, Reports arthralgias and Reports other (Being treated for rheumatoid arthritis) Skin/Breast Reports system reviewed and no additional complaints, except as documented Neuro Reports no additional complaints Psych Reports anxiety Endo Reports no additional complaints Gamal/Lymph Reports no additional complaints Physical Exam Vital Signs: Last Vital Signs Pulse 67 02/22/24 11:33 BP 110/80 02/22/24 11:33 Pulse Ox 100 02/22/24 11:33 Oxygen Delivery Method Room Air 02/22/24 11:33 BMI result Body Mass Index 26.0 Const General: comfortable, no acute distress, alert and awake Orientation/consciousness: patient oriented x3 HEENT Head: Yes normal to inspection General nose exam: No nasal polyps present and No nasal discharge present Face and sinus: Yes sinuses nontender Mouth: oropharynx normal Throat: Yes posterior oropharynx normal Eyes General: appearance normal, both eyes and all related structures Neck Neck: Yes normal visual inspection, Yes no lymphadenopathy, Yes trachea midline and Yes no JVD Thyroid: Thyroid normal Chest Chest palpation & inspection: normal inspection of the chest, normal palpation of entire chest wall and no tenderness Resp Other: Percussion note resonant, breath sounds are equal on both sides. No wheezes rhonchi or crepitations are heard. Cardio Palpation: normal PMI Rate: regular rate Rhythm: regular rhythm Heart sounds: no gallops and no murmurs Peripheral pulses: Peripheral pulses 2+ throughout GI Palpation (GI): Soft to palpation, nontender, No hepatosplenomegaly present and no masses Auscultation: normal bowel sounds Back/Spine/Pelvis Thoracic/Lumbar Spine: thoracic and lumbar spine normal to inspection Skin General skin exam: no rashes or lesions noted Neuro General: patient oriented x3 and no focal motor deficits Cranial nerves: Yes CN's II-XII intact bilaterally Extrem General: Yes normal to inspection, Yes no clubbing, cyanosis or edema and Yes no calf tenderness Psych Appearance: grossly normal and well kempt Speech and movement: Normal speech and movement present Assessment & Plan Assessment & Plan (1) LONA on CPAP: Comment: PATIENT BEING TREATED FOR OBSTRUCTIVE SLEEP APNEA FOR THE PAST MANY YEARS. The CPAP device is old and has failed to transmit any data. So we do not have electronic , record of her compliance. The patient tells that she is using every night regularly and sleeping well. Code(s): G47.33 - Obstructive sleep apnea (adult) (pediatric); Z99.89 - Dependence on other enabling machines and devices Category: Medical Plan: She is encouraged to keep on using regularly. EXPLAINED THAT THE PAIN IN HER NECK AND SCALP IS PROBABLY RELATED TO ARTHRITIS IN THE SPINE. BUT SHE CAN TRY TO KEEP THE STRAPS LITTLE LOSE, SOME NIGHTS IF IT IS UNCOMFORTABLE SHE CAN DO WITHOUT THE CPAP . I ALSO OFFERED THAT SHE CAN BRING THE CPAP MACHINE ALONG WITH THE MASK HERE TO THE OFFICE AND WILL BE GLAD TO CHECK IT, OR SHE CAN GO TO THE OFFICE OF HER DME SUPPLIER AND HAVE THEM CHECK THE CPAP EQUIPMENT. (2) Bronchial asthma: Comment: SHE HAS CHRONIC, INTERMITTENT BRONCHIAL ASTHMA. Code(s): J45.909 - Unspecified asthma, uncomplicated Category: Medical Plan: TX : EXPLAINED AND EDUCATED. ADVISED TO USE VENTOLIN 2 PUFFS Q 4-6 HOURS ONLY P.R.N. DOES NOT NEED TO USE ICS OR LA BDs . Coding Level of Care Code Est Pt Level 3 (54399) Diagnoses LONA on CPAP G47.33; Z99.89 Bronchial asthma J45.909
[2024-02-22 11:33] VITALS: BP 110/80; PULSE 67; O2SAT 100; BMI 26.0
== END 2024-02-22 11:58 | disposition home or self-care (01) ==
PROVIDERS: PCP Registered Nurse; Referring Provider Registered Nurse; Visit Provider Internal Medicine
DX: G47.33 Obstructive sleep apnea (adult) (pediatric) (principal); Z99.89 Dependence on other enabling machines and devices; J45.909 Unspecified asthma, uncomplicated
CPT/HCPCS: 99213

== ENCOUNTER → 2024-02-22 11:16 | Outpatient (BNVA) | payer MEDICAID, SELFPAY | PROVIDERS: PCP Registered Nurse; Visit Provider Internal Medicine | DX: G47.33 Obstructive sleep apnea (adult) (pediatric) (principal); J45.909 Unspecified asthma, uncomplicated; Z99.89 Dependence on other enabling machines and devices | CPT/HCPCS: 99212 ==

== ENCOUNTER 2024-02-29 | Outpatient (REF) | payer MEDICAID, SELFPAY ==
[2024-03-08 03:37] LABS: HPV mRNA E6/E7 rflx Not Detected (Not Detected)
== END 2024-02-29 00:01 | disposition home or self-care (01) ==
LOC: HO.HHCLNP
PROVIDERS: Visit Provider Advanced Practice Midwife
DX: Z01.419 Encounter for gynecological examination (general) (routine) without abnormal findings (principal)
CPT/HCPCS: 87624; 88142

== ENCOUNTER 2024-03-28 09:48 | Outpatient (AMB) | payer MEDICAID, SELFPAY ==
--- NOTE | 2024-03-28 09:56 | A.OFFVIS_ITS ---
Vital Signs 03/28/24 10:03 Height 5 ft 2 in Weight 137 lb 12.623 oz BMI 25.2 BP 100/80 Blood Pressure Location Rt brachial Position Sitting Pulse 68 Pulse Source Palpation Intake Visit Reasons: Overlap syndrome. Intake Note: Patient presents today for follow up. Last seen by Cristiano on 01/20/24. Patient reports no concerns today. Early Childhood Education Instructor Required: Yes Early Childhood Education Instructor Language: Manager Of Regulatory Affairs Name: Ever Allergies aspirin [ASA] Allergy (Intermediate, Verified 03/28/24 10:02) ITCHY, HOT, AND HEADACHE calcium Allergy (Intermediate, Verified 03/28/24 10:02) Vomiting Penicillins Allergy (Intermediate, Verified 03/28/24 10:02) RASH tofacitinib [Xeljanz] Allergy (Intermediate, Verified 03/28/24 10:02) chest pain, headaches sulfasalazine Allergy (Unknown, Verified 03/28/24 10:02) unknown HPI Comments Details: Ms Nicky Juarez presents today for f/u with her son who helps with translation. She is doing well on Humira 40 mg QOW. He main concern today is the sciatica both sides. she had an MRI done and is waiting for a call to get the injections. In addition she takes Allopurinol 100mg QD for gout. She continues on prednisone 5 mg daily, and takes Percocet Ms Nicky Juarez presents today with her son who helps with translation. She is here to review her lab work and to discuss possible treatment. She she continues to describe widespread pain. She still some small ulcers on her coccyx area and says when her lupus is active she gets the sores as she continues to share that she was diagnosed with lupus sometime ago. Today the patient is now saying she could not tolerate taking leflunomide because it caused her severe abdominal pain. In addition she takes Allopurinol 100mg QD for gout. She continues on prednisone 5 mg daily, and takes Percocet 11/23/2023 Jolly: Ms Nicky Juarez presents today with her son who helps with translation. She was last seen in the office 02/2022 for widespread pain. Today she presents with the same concerns. The history below is much of the same information she relays today. In addition she takes Allopurinol 100mg QD. The patient presents for evaluation of widespread pains. She was last seen by Dr. Carrillo. She reports that she was on leflunomide 20 mg daily for a pre sumed seronegative RA and he had stopped it without replacement. She reports her joint felt better when she was taking Leflunomide. Mostly the pains are in her hands, neck, shoulders, lower back, knees and feet. She describes episodes of increased pain sometimes associated with a skin rash and fevers when she goes out in the sun. She continues to believe she has lupus. She does have copy of her visits to Dr. Zeng in [place] from 2012 and . There was a positive PHYLLIS at the time with anti-WIRE HARNESS DESIGN ENGINEER positivity. He thought she had lupus. Symptoms were mostly controlled with prednisone at the time. She says she is currently taking 5 mg daily prednisone. Per patient, whenever she tries to stop she develops a crisis. This is characterized by increased pain in the hands and skin rash. She thinks she needs to stay on the prednisone. She does not recall any prior history of being on hydroxychloroquine, methotrexate, azathioprine, Benlysta or any other medications that might have been steroid sparing for lupus. She had also seen Dr. Reyes and Dr. Zepeda in the past. Those records are not currently available. Mostly today she is complaining hand, knee pain. She also continues with painful range of motion in both shoulders, more severe on the right side. She has had injections in the back. She also is said to have fibromyalgia and currently is taking 10 mg of cyclob enzaprine at night and gabapentin 900 mg at night. This does seem to help her with pain at night. She has a history of anxiety, insomnia and depression. She is on no meds from psychiatry currently other than Ambien. The chart indicates possible treatment with Abilify in the past. She recalls previous medications that made her too groggy so she stopped them. She is seen at the [facility] and also has prescribed hydrocodone and Ambien. Prior Visit 02/2022 The patient presents for evaluation of widespread pains. We used the translating service to facilitate the history and exam. She was last seen about a year ago by Dr. Ospina. At that point she was on leflunomide 20 mg daily for a presumed seronegative RA. She does not really know her medications so I am not confident she actually took the leflunomide. The chart indicates she last had a refill of this last fall. It is unclear whether she actually had any improvement or whether there was any change since then in her joint pains. Mostly the pains are in her hands, neck, shoulders, lower back, knees and feet. She describes episodes of increased pain sometimes associated with a skin rash and fevers. She thinks she has lupus. She does have copy of her visits to Dr. Zeng in [place] from 2012 and . There was a positive PHYLLIS at the time with anti-WIRE HARNESS DESIGN ENGINEER positivity. He thought she had lupus. Symptoms were mostly controlled with prednisone at the time. She says she is currently taking 5 mg daily prednisone. When she tried to stop it a few weeks ago she developed a crisis she says. This was characterized by increased pain in the hands and skin rash. She thinks she needs to stay on the prednisone. She does not recall any prior history of being on hydroxychloroquine, methotrexate, azathioprine, Benlysta or any other medications that might have been steroid sparing for lupus. She had also seen Dr. Reyes and Dr. Zepeda in the past. Those records are not currently available. Mostly today she is complaining of neck and shoulder pain. The neck has spasms and is accompanied by pain in the right shoulder and arm. There is painful range of motion in both shoulders, more severe on the right side. She does not recall any recent or distant history of shoulder or neck injury. She has had injections in the back and wants to have an injection in the neck. She also is said to have fibromyalgia and currently is taking 10 mg of cyclobenzaprine at night and gabapentin 900 mg at night. This does seem to help her with pain at night. She has a history of anxiety, insomnia and depression. She is on no meds from psychiatry currently other than Ambien. The chart indicates possible treatment with Abilify in the past. She recalls previous medications that made her too groggy so she stopped them. She is seen at the [facility] and also has prescribed hydrocodone and Ambien. [facility] Medical History Gout SLE (systemic lupus erythematosus related syndrome) Breast calcification, right Long-term use of immunosuppressant medication Positive PHYLLIS (antinuclear antibody) Fibromyalgia History of primary hyperparathyroidism Osteopenia Dyslipidemia Hypothyroidism LONA on CPAP Bronchial asthma Epidermal inclusion cyst Morbid obesity Gout of right foot PHYLLIS positive Seronegative rheumatoid arthritis Diabetes type 2, uncontrolled Surgical History History of surgery Hx of excision of mass History of kidney surgery S/P breast lumpectomy H/O parathyroidectomy Hx of cholecystectomy H/O tubal ligation Family History Daughter History of breast cancer Father Cirrhosis Diabetes Arthritis Mother Arthritis Sister Diabetes Social History Alcohol intake: never Patient Tobacco Use Status: Former Tobacco user Quit Date: 1991 Tobacco use type: Cigarette Substance Use Type: Marijuana Female Reproductive History Menstrual Age of Menarche: 11 Physical Exam Vital Signs: Last Vital Signs Pulse 68 03/28/24 10:03 BP 100/80 03/28/24 10:03 BMI result Body Mass Index 25.2 APPEARANCE: Patient in no acute distress, groomed, nourished EYES no redness, eyelids normal EARS: External ear normal, NECK: No thyromegaly or masses, no adenopathy, trachea midline. HEART: Regular rhythm, S1-S2 heard, no murmurs, rubs or gallops. LUNG: Clear to percussion and auscultation. EXTREMITIES: No edema, no calf tenderness, normal peripheral pulses. NEURO: Oriented and alert x3. No focal weakness. Reflexes symmetric. She walks somewhat unsteadily with a cane complaining of back and leg pain. SKIN: On the left forearm are 2 hyperpigmented nodular lesions. None of these look red or tender. They look like old inflammatory scars. There is no objective evidence of Raynaud's disease. There is similar to areas of hyperpigmented scars over the left buttock region. No scalp lesions or nail changes. JOINT EXAM:.?? Cervical Spine:.? Mild pain with lateral flexion at 10 degrees of rotation at 30 degrees to either side. There is some right paraspinal muscle tenderness. Thoracic Spine:.? No scoliosis.? No tenderness on palpation. Lumbar Spine:.? Alignment normal.? Lumbar pain with flexion of 45 degrees with some paraspinal muscle tenderness. Chest Wall:.? No tenderness, swelling, increased warmth or erythema. Hands: Right:? Normal pain-free range of motion with some slight tenderness across the PIP joints with no more mild swelling is appreciated. No flexor tendon triggering or tenderness. No thenar atrophy. Left: Mild discomfort with range of motion at the 3rd and 4th fingers. There is no more slight tenderness at the 3rd and 4th MCP and PIP with no more mild swelling is appreciated. Elsewhere no sensory loss, thenar atrophy, tenderness, swelling, increased warmth or erythema. Wrists:.? Mild pain with flexion extension at 75 degrees with some mild tenderness but no swelling, increased warmth or erythema. Elbows:. Normal pain-free range of motion without tenderness, swelling, increased warmth or erythema. Shoulders: Right: Mild pain with abduction at 90 degrees or with more than 20 degrees of internal or external rotation. Mild anterior, subacromial posterior tenderness. No acromioclavicular joint swelling or tenderness. No supraclavicular or axillary adenopathy. Left: Mild pain with abduction at 100 degrees. Passively she resists motion beyond that. There is similar pain with more than 20 degrees of rotation. There is mild anterior tenderness but no swelling, increased warmth or erythema. Hips:.? Full range of motion with mild lumbar pain with extremes of rotation. No groin pain with motion. Hip bursa: Mild trochanteric tenderness. Knees:.?? Normal pain-free range of motion with mild patellofemoral crepitus. There is some mild medial compartment tenderness without effusion, soft tissue swelling, increased warmth or erythema.? Ankles:? Normal pain-free range of motion with mild tenderness. No swelling, increased warmth or erythema. Feet:? Normal pain-free range of motion with mild tenderness across the insteps and MTP joints but no soft tissue swelling, increased warmth or erythema. Tender points:.? Mild tenderness to digital palpation at the occiput, trapezius, second rib, lateral epicondyle, knees, greater trochanter and gluteal area bilaterally. ? Results Reviewed Results Reviewed: Laboratory Tests 02/08/24 15:18 WBC 9.6 RBC 4.48 Hgb 12.9 Hct 39.7 Plt Count 416 H D ESR 38 H C-Reactive Protein 0.16 Assessment & Plan Assessment & Plan (1) Seronegative rheumatoid arthritis: Comment: Humira started 12/2023 Recent Leflunomide 20mg daily nausea and vomiting. Tried Xeljanz but it caused nausea, headaches and chest pain after 2 doses so she stopped the medication. Could not tolerate Actemra due to increased blood pressure. Could not tolerate Kevzara due to extreme fatigue and subjective fluid retention. She could not tolderate sulfasalazine. She could not previously take plaquenil because of side effects. Code(s): M06.00 - Rheumatoid arthritis without rheumatoid factor, unspecified site Category: Medical (2) Long-term use of immunosuppressant medication: Comment: Leflunomide cause headache and NV Code(s): Z79.899 - Other skilled nursing (current) drug therapy Category: Medical (3) Spondylosis of lumbar spine: Code(s): M47.816 - Spondylosis without myelopathy or radiculopathy, lumbar region Category: Medical (4) Gout: Code(s): M10.9 - Gout, unspecified Category: Medical Qualifiers: Gout site: unspecified site Gout etiology: idiopathic Chronicity: chronic Presence of tophus: without tophus Qualified Code(s): M1A.00X0 - Idiopathic chronic gout, unspecified site, without tophus (tophi) Plan #SeroNegative RA/Overlap Syndrome: She is doing well today since she started Humira 40 mg QOW. On PE, the multiple areas of hand pain and joint swelling has resolved. For now I will continue her prednisone dose at 5 mg daily. #Elevated uric acid/Gout: 6.8 - Conitnue allopurinol to 200 mg q.d.. Obtain UA levels #Senior Living Use: Will get updated labs today and one week before next visit in 4 months. Discussed with patient to hold Humira in the event of fevers, infections, surgeries and non-healing wound. #Lower back and Sciatica:Recent MRI (01/2024) reports L4 nerve root impingment and disc bulge. Paitent waiting for appt for injection. Recommend to patient to reach out to make the appointment so they will stop by the office today. I spent 20 minutes with her today reviewing her chart and physical exam. Follow-up here in 16 weeks Orders: Orders Complete Blood Count Auto Diff 4 Months M06.00 - Rheumatoid arthritis without rheumatoid factor, unspecified site, Z79.899 - Other skilled nursing (current) drug therapy C Reactive Protein Today M06.00 - Rheumatoid arthritis without rheumatoid factor, unspecified site, Z79.899 - Other skilled nursing (current) drug therapy Comprehensive Met. Panel 4 Months M06.00 - Rheumatoid arthritis without rheumatoid factor, unspecified site, Z79.899 - Other long term care social worker (current) drug therapy C Reactive Protein 4 Months M06.00 - Rheumatoid arthritis without rheumatoid factor, unspecified site, Z79.899 - Other long term care social worker (current) drug therapy Erythrocyte Sedimentation Rate 4 Months M06.00 - Rheumatoid arthritis without rheumatoid factor, unspecified site, Z79.899 - Other skilled nursing (current) drug therapy Erythrocyte Sedimentation Rate Today M06.00 - Rheumatoid arthritis without rheumatoid factor, unspecified site, Z79.899 - Other skilled nursing (current) drug therapy Comprehensive Met. Panel Today M06.00 - Rheumatoid arthritis without rheumatoid factor, unspecified site, Z79.899 - Other long term care social worker (current) drug therapy Complete Blood Count Auto Diff Today M06.00 - Rheumatoid arthritis without rheumatoid factor, unspecified site, Z79.899 - Other skilled nursing (current) drug therapy Uric Acid Today M1A.00X0 - Idiopathic chronic gout, unspecified site, without tophus (tophi) Coding Level of Care Code Est Pt Level 3 (51461) Complex EM visit Add On G2211 Diagnoses Seronegative rheumatoid arthritis M06.00 Long-term use of immunosuppressant medication Z79.899 Spondylosis of lumbar spine M47.816 Idiopathic chronic gout without tophus, unspecified site M1A.00X0 Gout site: unspecified site Gout etiology: idiopathic Chronicity: chronic Presence of tophus: without tophus
[2024-03-28 10:03] VITALS: BP 100/80; PULSE 68; BMI 25.2
== END 2024-03-28 10:20 | disposition home or self-care (01) ==
PROVIDERS: PCP Registered Nurse; Visit Provider Nurse Practitioner Family
DX: M06.00 Rheumatoid arthritis without rheumatoid factor, unspecified site (principal); Z79.899 Other long term (current) drug therapy; M47.816 Spondylosis without myelopathy or radiculopathy, lumbar region; M1A.00X0 Idiopathic chronic gout, unspecified site, without tophus (tophi)
CPT/HCPCS: 99213; G2211

== ENCOUNTER → 2024-03-28 09:48 | Outpatient (BNVA) | payer MEDICAID, SELFPAY | PROVIDERS: PCP Registered Nurse; Visit Provider Nurse Practitioner Family | DX: M06.00 Rheumatoid arthritis without rheumatoid factor, unspecified site (principal); M47.816 Spondylosis without myelopathy or radiculopathy, lumbar region; M1A.00X0 Idiopathic chronic gout, unspecified site, without tophus (tophi); Z79.899 Other long term (current) drug therapy | CPT/HCPCS: 99212 ==

== ENCOUNTER 2024-03-28 10:36 | Outpatient (REF) | payer MEDICAID, SELFPAY ==
[2024-03-28 13:11] LABS: MANUAL DIFF FLAG NO
[2024-03-28 13:31] LABS: Basophils Absolute Auto 0.1 X10*3/uL (0.0-0.2); Basophils Percent Auto 0.6 % (0-2); Eosinophils Absolute Auto 0.6 X10*3/uL (0.0-0.4); Eosinophils Percent Auto 6.6 % (0-4); Hematocrit 39.3 % (37.0-47.0); Hemoglobin 12.8 g/dl (12.0-16.0); Imm Gran Abs Auto 0.03 X10*3/uL (0.00-0.03); Imm Gran Pct Auto 0.3 % (0.0-0.4); Lymphocytes Absolute Auto 1.8 X10*3/uL (1.2-4.9); Lymphocytes Percent Auto 20.2 % (20-40); Mean Corpuscular HGB Conc 32.6 g/dl (31.0-35.0); Mean Corpuscular Hemoglobin 29.4 pg (27.0-33.0); Mean Corpuscular Volume 90.3 fL (80.0-98.0); Mean Platelet Volume 10.4 fL (9.4-12.3); Monocytes Absolute Auto 0.6 X10*3/uL (0.1-1.2); Monocytes Percent Auto 7.1 % (2-11); Neutrophils Absolute Auto 5.8 x10*3/uL (2.0-8.3); Neutrophils Percent Auto 65.2 % (45-73); Platelet Count 342 X10*3/uL (160-400); Red Blood Count 4.35 X10*6/uL (4.20-5.50); Red Cell Distribution Width 14.9 % (11.0-16.0); White Blood Count 8.9 X10*3/uL (4.8-10.8)
[2024-03-28 13:43] LABS: Alanine Aminotransferase 16 U/L (0-31); Albumin Level 4.1 g/dL (3.5-5.0); Alkaline Phosphatase 38 U/L (39-117); Anion Gap 15 (12-20); Aspartate Amino Transferase 21 U/L (5-31); Bilirubin Total 0.3 mg/dL (0.0-1.0); Blood Urea Nitrogen 29 mg/dL (9-16); C Reactive Protein < 0.10 mg/dL (< or = 0.50); Calcium 10.6 mg/dL (8.4-10.2); Carbon Dioxide 31 mmol/L (22-29); Chloride 100 mmol/L (96-108); Estimated Glomerular Filt Rate 37; Glucose Random 92 mg/dL (60-115); Potassium 3.9 mmol/L (3.3-5.1); Sodium 142 mmol/L (135-145); Total Protein 7.4 g/dL (6.5-8.0); Uric Acid 5.3 mg/dL (2.4-5.7)
[2024-03-28 14:08] LABS: Erythrocyte Sedimentation Rate 14 MM/HR (0-20)
== END 2024-03-28 10:37 | disposition home or self-care (01) ==
LOC: HO.10HDL 10:36
PROVIDERS: Visit Provider Nurse Practitioner Family
DX: M06.00 Rheumatoid arthritis without rheumatoid factor, unspecified site (principal); M1A.00X0 Idiopathic chronic gout, unspecified site, without tophus (tophi); Z79.899 Other long term (current) drug therapy
CPT/HCPCS: 36415; 80053; 84550; 85025; 85652; 86140; 99212

== ENCOUNTER 2024-04-04 10:12 | Outpatient (AMB) | payer MEDICAID, SELFPAY ==
--- NOTE | 2024-04-04 10:16 | MHC.OFFVIS ---
Vital Signs 04/04/24 10:24 Height 5 ft 2 in Weight 137 lb BMI 25.1 BP 102/66 Blood Pressure Location Lt brachial Position Sitting Respiration 16 Pulse 64 Pulse Source Pulse Oximeter Pulse Oximetry (%) 96 Oxygen Delivery Method Room Air Intake Visit Reasons: Discuss MRI Results Intake Note: Patient comes in to discuss MRI results. Reports pain 08/09. Allergies aspirin [ASA] Allergy (Intermediate, Verified 04/04/24 10:16) ITCHY, HOT, AND HEADACHE calcium Allergy (Intermediate, Verified 04/04/24 10:16) Vomiting Penicillins Allergy (Intermediate, Verified 04/04/24 10:16) RASH tofacitinib [Xeljanz] Allergy (Intermediate, Verified 04/04/24 10:16) chest pain, headaches sulfasalazine Allergy (Unknown, Verified 04/04/24 10:16) unknown HPI Comments Details: Ms Nicky Lopez is very pleasant 63 years old female who presents in my office for evaluation after the MRI which was performed on 02/14/2024. See description of the MRI as below. She in the past received medial branch blocks for axial lower back pain and radiofrequency ablation for the lower back pain with relatively good results. 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 However she came to me with a new pain of the lower back with radiation into the left lower extremity. She reports the pain radiates all the way down to her lateral side of the leg lateral side of the tejeda all the way down to the lateral malleolus and posterior surface of the foot. She was sent for the MRI of the lumbar spine and it demonstrated significant changes only at L4-5 interspace there there is right greater than left subarticular zone narrowing moderate to severe right neural foraminal narrowing with possible impingement of the exiting right L4 nerve root. However the patient reports the pain is mostly on the left. I would like to perform diagnostic as well as therapeutic L4-5 transforaminal epidural steroid injection on the left where the patient pain is mostly pronounced. This will give me the understanding what exactly the pain generators of this patient is. She will be scheduled for the appointment with me 1 month after the procedure. Prior: The patient presents for evaluation of widespread pains. We used the translating service to facilitate the history and exam. She was last seen about a year ago by Dr. Ospina. At that point she was on leflunomide 20 mg daily for a presumed seronegative RA. She does not really know her medications so I am not confident she actually took the leflunomide. The chart indicates she last had a refill of this last fall. It is unclear whether she actually had any improvement or whether there was any change since then in her joint pains. Mostly the pains are in her hands, neck, shoulders, lower back, knees and feet. She describes episodes of increased pain sometimes associated with a skin rash and fevers. She thinks she has lupus. She does have copy of her visits to Dr. Zeng in [place] from 2012 and . There was a positive PHYLLIS at the time with anti-ENGINEERING ANALYST positivity. He thought she had lupus. Symptoms were mostly controlled with prednisone at the time. She says she is currently taking 5 mg daily prednisone. When she tried to stop it a few weeks ago she developed a crisis she says. This was characterized by increased pain in the hands and skin rash. She thinks she needs to stay on the prednisone. She does not recall any prior history of being on hydroxychloroquine, methotrexate, azathioprine, Benlysta or any other medications that might have been steroid sparing for lupus. She had also seen Dr. Reyes and Dr. Zepeda in the past. Those records are not currently available. Mostly today she is complaining of neck and shoulder pain. The neck has spasms and is accompanied by pain in the right shoulder and arm. There is painful range of motion in both shoulders, more severe on the right side. She does not recall any recent or distant history of shoulder or neck injury. She has had injections in the back and wants to have an injection in the neck. She also is said to have fibromyalgia and currently is taking 10 mg of cyclobenzaprine at night and gabapentin 900 mg at night. This does seem to help her with pain at night. She has a history of anxiety, insomnia and depression. She is on no meds from psychiatry currently other than Ambien. The chart indicates possible treatment with Abilify in the past. She recalls previous medications that made her too groggy so she stopped them. She is seen at the [facility] and also has prescribed hydrocodone and Ambien. [facility] Medical History Gout SLE (systemic lupus erythematosus related syndrome) Breast calcification, right Long-term use of immunosuppressant medication Positive PHYLLIS (antinuclear antibody) Fibromyalgia History of primary hyperparathyroidism Osteopenia Dyslipidemia Hypothyroidism LONA on CPAP Bronchial asthma Epidermal inclusion cyst Morbid obesity Gout of right foot PHYLLIS positive Seronegative rheumatoid arthritis Diabetes type 2, uncontrolled Surgical History History of surgery Hx of excision of mass History of kidney surgery S/P breast lumpectomy H/O parathyroidectomy Hx of cholecystectomy H/O tubal ligation Family History Daughter History of breast cancer Father Cirrhosis Diabetes Arthritis Mother Arthritis Sister Diabetes Social History Alcohol intake: never Patient Tobacco Use Status: Former Tobacco user Tobacco use type: Cigarette Substance Use Type: Marijuana Female Reproductive History Menstrual Age of Menarche: 11 Review of Systems Const All systems reviewed & are unremarkable except as noted in HPI and below ENT Denies Normal hearing present Neuro Denies Normal hearing present, Denies Abnormal speech present and Denies confusion Psych Denies confusion Physical Exam Vital Signs: Last Vital Signs Pulse 64 04/04/24 10:24 Resp 16 04/04/24 10:24 BP 102/66 04/04/24 10:24 Pulse Ox 96 04/04/24 10:24 Oxygen Delivery Method Room Air 04/04/24 10:24 BMI result Body Mass Index 25.1 Const General: cooperative, healthy appearing, no acute distress, alert and well groomed; No confusion Orientation/consciousness: patient oriented x3 and No confusion Limitations: no limitations HEENT Head: Yes normocephalic and Yes atraumatic Ears: hearing grossly normal bilaterally Eyes General: appearance normal, both eyes and all related structures Eyelids: Yes eyelids normal Pupils: Equal, round and reactive pupils present EOM: EOMs intact bilaterally Neck Neck: Yes normal visual inspection and Yes no JVD Resp Effort & Inspection: normal respiratory effort, able to speak in complete sentences and no audible wheezes Cardio Jugular venous distension: no JVD Back/Spine/Pelvis Other: Tenderness on palpation in paraspinal spinal region of the lumbar spine. SLR is positive on the left. Neuro General: patient oriented x3, gait normal, moves all extremities and No confusion Cranial nerves: Yes Equal, round and reactive pupils present and No Normal hearing present Speech: No Abnormal speech present Results Reviewed Results Reviewed: MR LUMBAR SPINE WITHOUT CONTRAST FINDINGS: Normal anatomic alignment. No suspicious marrow signal or focal osseous lesion. No significant marrow edema. L3 vertebral body hemangioma. Mild multilevel fatty endplate marrow signal changes. The vertebral body heights are maintained. Disc desiccation from L2-L3 to L5-S1. The conus medullaris terminates at the level of L1-L2. The distal spinal cord is normal in appearance. The cauda equina nerve roots appear normal. No significant abnormalities of the paraspinal musculature. There is some edema of the lower right paravertebral musculature. Right renal atrophy and cortical scarring. Several small right renal cyst which do not require further imaging follow-up. The abdominal aorta is of normal contour and caliber. SPINAL LEVELS: T12-L1: No significant spinal canal or neural foraminal narrowing L1-L2: No significant spinal canal or neuroforaminal narrowing. L2-L3: No significant spinal canal or neuroforaminal narrowing. Shallow disc bulge and mild facet arthropathy. L3-L4: No significant spinal canal or neuroforaminal narrowing. Shallow disc bulge and mild facet arthropathy. L4-L5: Mild facet arthropathy with small joint fluid. Shallow disc bulge with superimposed right foraminal protrusion. No significant central spinal canal stenosis. Right greater than left subarticular zone narrowing. Moderate to severe right neural foraminal narrowing with possible impingement of the exiting right L4 nerve root. L5-S1: No significant spinal canal or neuroforaminal narrowing. Small central disc protrusion and mild facet arthropathy. IMPRESSION: 1. At L4-L5, there is a right foraminal disc protrusion which contributes to moderate to severe right neural foraminal narrowing with possible impingement of the exiting right L4 nerve root. There is also right greater than left subarticular zone narrowing at this level. 2. No other significant canal or neural foraminal stenosis. 3. Mild edema of the lower right paravertebral musculature 4. Right renal atrophy and cortical scarring. Correlate with clinical history. Assessment & Plan Assessment & Plan (1) Spondylosis of lumbar spine: Code(s): M47.816 - Spondylosis without myelopathy or radiculopathy, lumbar region Category: Medical Plan: (2) Radiculopathy, lumbar region: Code(s): M54.16 - Radiculopathy, lumbar region Category: Medical (3) Disc degeneration, lumbar: Code(s): M51.36 - Other intervertebral disc degeneration, lumbar region Category: Medical Plan Nicky underwent a bilateral L3 L4 DR L5 MBB radiofrequency ablation on 12/29/21 and reports 100% sustained relief for 10 months. After that she went for the same procedure on 03/02/2023 and reported only 50% pain improvement. Now her pattern of pain had changed. She reports the pain in the lower back with radiation into the left lower extremity. SLR is positive on the left. I suspect radiculopathy lumbar. She went for MRI results of which dictated as above. I will schedule her for L4-5 transforaminal epidural steroid injection. Although there are most prominent changes are on the right the most significant pain patient has not the left. So I will schedule her for the left L4-5 transforaminal epidural steroid injection. It will serve her as the therapeutic as well as potentially diagnostic injection. Patient Instructions: I here by testify that I spent 30 minutes in conversation with this patient as well as planning her care and organizing this note. Her son who is in presence with her today helped us to interpret the conversation in Danish. Coding Level of Care Code Est Pt Level 4 (65973) Diagnoses Spondylosis of lumbar spine M47.816 Radiculopathy, lumbar region M54.16 Disc degeneration, lumbar M51.36
[2024-04-04 10:24] VITALS: BP 102/66; PULSE 64; RESP 16; O2SAT 96; BMI 25.1
== END 2024-04-04 11:12 | disposition home or self-care (01) ==
PROVIDERS: PCP Registered Nurse; Referring Provider Registered Nurse; Visit Provider Anesthesiology
DX: M47.816 Spondylosis without myelopathy or radiculopathy, lumbar region (principal); M54.16 Radiculopathy, lumbar region; M51.36 Other intervertebral disc degeneration, lumbar region
CPT/HCPCS: 99214

== ENCOUNTER → 2024-04-04 10:12 | Outpatient (BNVA) | payer MEDICAID, SELFPAY | PROVIDERS: PCP Registered Nurse; Visit Provider Anesthesiology | DX: M47.816 Spondylosis without myelopathy or radiculopathy, lumbar region (principal); M54.16 Radiculopathy, lumbar region; M51.36 Other intervertebral disc degeneration, lumbar region | CPT/HCPCS: 99212 ==

== ENCOUNTER 2024-04-11 15:17 | Outpatient (REF) | payer MEDICAID, SELFPAY ==
[2024-04-11 16:28] LABS: Appearance Urine Clear; Color Urine Yellow; Glucose Urine UA Negative (Negative); Leukocyte Esterase Urine Negative (Negative); Nitrite Urine Negative (Negative); Specific Gravity - Urine <= 1.005 (1.005-1.025); Urine Blood Negative (Negative); Urine Ketones Negative (Negative); Urine Protein Negative (Neg-Trace)
[2024-04-11 16:30] LABS: Bacteria Urine None Seen (None Seen); Hyaline Casts Urine 0-2 /LPF (0-2); RBC Urine 0-2 /HPF (0-2); Squamous Epithelial Cell Urine 0-2 /HPF (0-2); WBC Urine 0-5 /HPF (0-5)
[2024-04-11 17:07] LABS: Anion Gap 14 (12-20); Blood Urea Nitrogen 28 mg/dL (9-16); Calcium 9.9 mg/dL (8.4-10.2); Carbon Dioxide 31 mmol/L (22-29); Chloride 99 mmol/L (96-108); Estimated Glomerular Filt Rate 34; Potassium 4.8 mmol/L (3.3-5.1); Sodium 139 mmol/L (135-145)
[2024-04-11 17:12] LABS: Creatinine Urine 15.51 mg/dL; Microalbumin Urine < 5.0 mg/L; Total Protein Urine Random < 7 mg/dL (<12)
[2024-04-13 12:23] LABS: Complement C3 78 mg/dL (83-193)
[2024-04-17 13:24] LABS: ANA Pattern 2 Nuclear, Speckled; ANA Titer 2 1:40 titer; Anti Nuclear Antibody Screen POSITIVE (NEGATIVE)
== END 2024-04-11 15:18 | disposition home or self-care (01) ==
LOC: HO.LAB 15:17
PROVIDERS: Visit Provider Internal Medicine Nephrology
DX: D68.62 Lupus anticoagulant syndrome (principal); E11.21 Type 2 diabetes mellitus with diabetic nephropathy; I10 Essential (primary) hypertension; M85.80 Other specified disorders of bone density and structure, unspecified site; M79.7 Fibromyalgia
CPT/HCPCS: 36415; 80051; 81001; 82043; 82310; 82565; 82570; 84156; 84520; 86038; 86039; 86160; 99212

== ENCOUNTER 2024-04-11 15:42 | Outpatient (AMB) | payer MEDICAID, SELFPAY ==
[2024-04-11 15:54] VITALS: BP 114/76; PULSE 68; BMI 26.2
--- NOTE | 2024-04-11 15:54 | A.OFFVIS_ITS ---
Vital Signs 04/11/24 15:54 Height 5 ft 2 in Weight 143 lb 4.807 oz BMI 26.2 BP 114/76 Blood Pressure Location Lt brachial Position Sitting Pulse 68 Pulse Source Pulse Oximeter Intake Visit Reasons: F/U Osteoporosis-confirmed Intake Note: Patient present today for Osteoporosis follow up visit. Vp Revenue Cycle Required: Yes Vp Revenue Cycle Language: Vietnamese Information Interpreted: non-clinical & clinical Accompanied by: Son Allergies aspirin [ASA] Allergy (Intermediate, Verified 04/11/24 16:01) ITCHY, HOT, AND HEADACHE calcium Allergy (Intermediate, Verified 04/11/24 16:01) Vomiting Penicillins Allergy (Intermediate, Verified 04/11/24 16:01) RASH tofacitinib [Xeljanz] Allergy (Intermediate, Verified 04/11/24 16:01) chest pain, headaches sulfasalazine Allergy (Unknown, Verified 04/11/24 16:01) unknown HPI Comments Details: 63-year-old female, today for follow-up visit . Today's visit focus is on osteoporosis She has Other PMH of fibromyalgia, SLE, cholecystitis status post cholecystectomy, nephrolithiasis, hypertension likely due to fibromuscular dysplasia of the renal arteries requiring stents placement, primary hyperparathyroidism s/p parathyroidectomy and hypothyroidism She [address] Cristobal on 11/12/13, only left inferior parathyroid gland left. She has low bone mass. No fx Denies co d or heat intolerance, she is gaining weight, + hot flashes, denies diarrhea, + constipation, + insomnia, fatigue, dry skin, dysphagia, dyspnea, dysphonia, tremors, palpitations, irritability, anxiety. . She Currently is on Prednisone 5 mg daily for SLE. DEXA Scan 07/14/18 AP SPINE L1-L4: Current: BMD 1.226 g/cm2, Z-score 0.6, T-score 0.4, normal, 11.8% increase from previous, 13.4% decrease from baseline (<5% change is not significant). Prior: BMD 1.097 g/cm2. Baseline: BMD 1.415 g/cm2. LEFT FEMUR, NECK: Current: BMD 0.809 g/cm2, Z-score -1.1, T-score -1.7, osteopenia. Prior: BMD 0.907 g/cm2. Baseline: BMD 1.011 g/cm2. LEFT FEMUR, TOTAL: Current: BMD 1.121 g/cm2, Z-score 1.1, T-score 0.9, normal, 3.9% decrease from previous, 10.7% decrease from baseline (<5% change is not significant). Prior: BMD 1.167 g/cm2. Baseline: BMD 1.256 g/cm2. LEFT FOREARM RADIUS 33%: Current: BMD 0.847 g/cm2, Z-score 0.5, T-score -0.3, normal, 6.1% decrease from baseline (<5% change is not significant). Baseline: BMD 0.902 g/cm2. Repeat DEXA 07/20/2022 AP SPINE L1-L4: Current: BMD 1.150 g/cm2, Z-score 1.0, T-score -0.2, normal, 8.7% decrease from previous, 18.7% decrease from baseline (<5% change is not significant). Prior: BMD 1.260 g/cm2. Baseline: BMD 1.415 g/cm2. LEFT FEMUR, NECK: Current: BMD 0.786 g/cm2, Z-score -0.6, T-score -1.8, osteopenia. Prior: BMD 0.777 g/cm2. Baseline: BMD 1.011 g/cm2. LEFT FEMUR, TOTAL: Current: BMD 1.020 g/cm2, Z-score 1.0, T-score 0.1, normal, 4.1% decrease from previous, 18.8% decrease from baseline (<5% change is not significant). Prior: BMD 1.064 g/cm2. Baseline: BMD 1.256 g/cm2. LEFT FOREARM RADIUS 33%: BMD 0.710 g/cm2, Z-score -0.7, T-score -1.9, osteopenia, 10.1% decrease from previous, 21.3% decrease from baseline (<5% change is not significant). Prior: BMD 0.790 g/cm2. Baseline: BMD 0.902 g/cm2. Laboratory Tests 01/29/21 01/29/21 02/11/21 15:35 15:35 09:15 Hgb 13.3 Hct 42.5 Sodium 136 Potassium 4.3 Creatinine 0.91 Estimated GFR > 60 Random Glucose 110 Calcium 9.8 AST 16 ALT 17 Alkaline Phosphatase 53 D Albumin 4.5 Triglycerides 109 Cholesterol 155 LDL Cholesterol Direct LDL Cholesterol, Calc 87 HDL Cholesterol 47 02/11/21 09:15 Hgb Hct Sodium Potassium Creatinine Estimated GFR Random Glucose Calcium AST ALT Alkaline Phosphatase Albumin Triglycerides Cholesterol LDL Cholesterol Direct 92 LDL Cholesterol, Calc HDL Cholesterol Took alendronate but couldn't tolerate because of Gi issues . Had Reclast infusion 09/08/2022. Currently on vitamin-D. No fx since last visit [facility] Medical History Gout SLE (systemic lupus erythematosus related syndrome) Breast calcification, right Long-term use of immunosuppressant medication Positive PHYLLIS (antinuclear antibody) Fibromyalgia History of primary hyperparathyroidism Osteopenia Dyslipidemia Hypothyroidism LONA on CPAP Bronchial asthma Epidermal inclusion cyst Morbid obesity Gout of right foot PHYLLIS positive Seronegative rheumatoid arthritis Diabetes type 2, uncontrolled Surgical History History of surgery Hx of excision of mass History of kidney surgery S/P breast lumpectomy H/O parathyroidectomy Hx of cholecystectomy H/O tubal ligation Family History Daughter History of breast cancer Father Cirrhosis Diabetes Arthritis Mother Arthritis Sister Diabetes Social History Alcohol intake: never Patient Tobacco Use Status: Former Tobacco user Tobacco use type: Cigarette Substance Use Type: Marijuana Female Reproductive History Menstrual Age of Menarche: 11 Physical Exam Vital Signs: Last Vital Signs Pulse 68 04/11/24 15:54 BP 114/76 04/11/24 15:54 BMI result Body Mass Index 26.2 Assessment & Plan Assessment & Plan (1) Osteopenia: Code(s): M85.80 - Other specified disorders of bone density and structure, unspecified site Category: Medical Plan: She has low bone mass but is chronically on steroids. This places her at high risk for fracture . Recent DEXA showed decreases in bone density. She received a dose of Reclast in August 2022. Urine NTX was suppressed Would continue vitamin-D supplementation . Will check urine NTX when available as well as repeat DEXA bone density to determine if will give 2nd dose of Reclast . Orders: Orders XR DEXA axial skeleton 3 Months M85.80 - Other specified disorders of bone density and structure, unspecified site Collagen Crosslinks NTX Today M85.80 - Other specified disorders of bone density and structure, unspecified site Coding Level of Care Code Est Pt Level 3 (64935) Diagnoses Osteopenia M85.80
== END 2024-04-11 16:18 | disposition home or self-care (01) ==
PROVIDERS: PCP Registered Nurse; Referring Provider Registered Nurse; Visit Provider Internal Medicine Endocrinology, Diabetes & Metabolism
DX: M85.80 Other specified disorders of bone density and structure, unspecified site (principal)
CPT/HCPCS: 99213

== ENCOUNTER 2024-04-30 09:00 | Outpatient (AMB) | payer MEDICAID, SELFPAY ==
[2024-04-30 09:05] VITALS: BP 104/70; PULSE 75; BMI 25.8
--- NOTE | 2024-04-30 09:05 | MHC.OFFVIS ---
Vital Signs 04/30/24 09:05 Height 5 ft 2 in Weight 141 lb 5.061 oz BMI 25.8 BP 104/70 Blood Pressure Location Lt brachial Position Sitting Pulse 75 Pulse Source Pulse Oximeter Intake Visit Reasons: DM-confirmed Intake Note: Patient presents today to follow up on D2MT. Last Diabetic Eye exam: 07/2023 Last Podiatry Visit:Doesn't have one Random Glucose: 84 mg/dl HgA1c: 5.8% Consignee Required: Yes Consignee Language: Venture Capital Analyst Name: Shruti Information Interpreted: non-clinical & clinical Accompanied by: Son Allergies aspirin [ASA] Allergy (Intermediate, Verified 04/30/24 09:22) ITCHY, HOT, AND HEADACHE calcium Allergy (Intermediate, Verified 04/30/24 09:22) Vomiting Penicillins Allergy (Intermediate, Verified 04/30/24 09:22) RASH tofacitinib [Xeljanz] Allergy (Intermediate, Verified 04/30/24 09:22) chest pain, headaches sulfasalazine Allergy (Unknown, Verified 04/30/24 09:22) unknown Medication List - Last Reconciled 04/30/24 by Isael Hollis MD adalimumab (Humira(CF) Pen) 40 mg (0.4 mL) subcut Q2W albuterol sulfate 90 mcg/actuation (ProAir HFA) 2 puffs PO Q6H PRN alcohol swabs (Alcohol Prep Pads) USE DIRECTED SIX TIMES DAILY allopurinol 200 mg (2 x 100 mg) PO QPM aripiprazole (Abilify) 10 mg PO .every 2 days artifi.tears(hypromellose)(PF) 0.3% 1 drp ophthalmic (eye) Q4-6H PRN atorvastatin 20 mg PO DAILY blood sugar diagnostic (FreeStyle Lite Strips) As directed blood-glucose meter (FreeStyle [place] Lite kit) As directed cane As directed cyclobenzaprine 10 mg PO BEDTIME docusate sodium (Colace) 100 mg PO BID furosemide 40 mg PO .every 2 days gabapentin 900 mg PO BEDTIME hydrocodone-acetaminophen 5-325 mg 1 tab PO Q6H PRN irbesartan 75 mg PO DAILY levothyroxine 75 mcg PO DAILY liraglutide (Victoza 3-Ko) 1.8 mg (0.3 mL) subcut DAILY melatonin 10 mg PO BEDTIME PRN metformin ER 1,000 mg PO BID metoprolol tartrate 25 mg PO BID naloxone 4 mg/actuation (Narcan) 1 spray intranasal Q2M omeprazole magnesium (Prilosec OTC) 20 mg PO DAILY pen needle, diabetic (BD Ultra-Fine Milly Pen Needle) USE 1 DAILY WITH VICTOZA polyethylene glycol 3350 (Miralax) 17 grams PO DAILY prednisone 5 mg PO DAILY sennosides (senna) 8.6 mg PO DAILY zolpidem (Ambien) 5 mg PO BEDTIME PRN HPI Comments Details: 63-year-old female, today for follow-up visit ,. She last saw Dr. Rivera for her diabetic management Patient meter download from April 16 2024 to April 30showed an average blood sugar of 83 mg/dL. The range is 60-102 mg/dL. She is 85% in target range, 12% below target. She had 3 fasting glucose in the 60s. Rest of the blood sugars are very good. All other days she is in the 70s. Pt has no sxof hypoglycemia during episodes of 70s She has diabetes type 2 diagnosed on 03/01/16. She has + microalbumin no other known complications. She has Other PMH of fibromyalgia, SLE, cholecystitis status post cholecystectomy, nephrolithiasis, hypertension likely due to fibromuscular dysplasia of the renal arteries requiring stents placement, primary hyperparathyroidism s/p parathyroidectomy and hypothyroidism She [address] Cristobal on 11/12/13, only left inferior parathyroid gland left. She is Currently on LT4 75 mcg. 100% compliance with LT4, good method of administration. For Diabetes she is on Metformin ER 2 500 mg bid, Victoza 1.8 mg daily. Last saw yusuf in 07/2023 She Currently is on Prednisone 5 mg daily for SLE. DEXA Scan 07/14/18 AP SPINE L1-L4: Current: BMD 1.226 g/cm2, Z-score 0.6, T-score 0.4, normal, 11.8% increase from previous, 13.4% decrease from baseline (<5% change is not significant). Prior: BMD 1.097 g/cm2. Baseline: BMD 1.415 g/cm2. LEFT FEMUR, NECK: Current: BMD 0.809 g/cm2, Z-score -1.1, T-score -1.7, osteopenia. Prior: BMD 0.907 g/cm2. Baseline: BMD 1.011 g/cm2. LEFT FEMUR, TOTAL: Current: BMD 1.121 g/cm2, Z-score 1.1, T-score 0.9, normal, 3.9% decrease from previous, 10.7% decrease from baseline (<5% change is not significant). Prior: BMD 1.167 g/cm2. Baseline: BMD 1.256 g/cm2. LEFT FOREARM RADIUS 33%: Current: BMD 0.847 g/cm2, Z-score 0.5, T-score -0.3, normal, 6.1% decrease from baseline (<5% change is not significant). Baseline: BMD 0.902 g/cm2. Laboratory Tests 01/29/21 01/29/21 02/11/21 15:35 15:35 09:15 Hgb 13.3 Hct 42.5 Sodium 136 Potassium 4.3 Creatinine 0.91 Estimated GFR > 60 Random Glucose 110 Calcium 9.8 AST 16 ALT 17 Alkaline Phosphatase 53 D Albumin 4.5 Triglycerides 109 Cholesterol 155 LDL Cholesterol Direct LDL Cholesterol, Calc 87 HDL Cholesterol 47 02/11/21 09:15 Hgb Hct Sodium Potassium Creatinine Estimated GFR Random Glucose Calcium AST ALT Alkaline Phosphatase Albumin Triglycerides Cholesterol LDL Cholesterol Direct 92 LDL Cholesterol, Calc HDL Cholesterol COUNTS INCLUDE 234 BEDS AT THE [facility] Medical History Gout SLE (systemic lupus erythematosus related syndrome) Breast calcification, right Long-term use of immunosuppressant medication Positive PHYLLIS (antinuclear antibody) Fibromyalgia History of primary hyperparathyroidism Osteopenia Dyslipidemia Hypothyroidism LONA on CPAP Bronchial asthma Epidermal inclusion cyst Morbid obesity Gout of right foot PHYLLIS positive Seronegative rheumatoid arthritis Diabetes type 2, uncontrolled Surgical History History of surgery Hx of excision of mass History of kidney surgery S/P breast lumpectomy H/O parathyroidectomy Hx of cholecystectomy H/O tubal ligation Family History Daughter History of breast cancer Father Cirrhosis Diabetes Arthritis Mother Arthritis Sister Diabetes Social History Alcohol intake: never Patient Tobacco Use Status: Former Tobacco user Tobacco use type: Cigarette Substance Use Type: Marijuana Female Reproductive History Menstrual Age of Menarche: 11 Physical Exam Vital Signs: Last Vital Signs Pulse 75 04/30/24 09:05 BP 104/70 04/30/24 09:05 BMI result Body Mass Index 25.8 Absence of Cushingoid features. Absence of acromegalic features. Neck exam reveals nl size thyroid about 15 gms. No thyroid nodules palpable. No carotid bruits present. Lungs CTA. Heart S1 S2, Reg R/R. No M/R/ G. Skin exam reveals absence of vitiligo or acanthosis nigricans. Abdominal exam reveals Soft NT/ND with NA BS. No organomegaly present. Neck Other: . Extrem Other: Visual exam of foot performed. No ulcerations or open lesions. No onchomycosis, no callouses.Pulses 2 + distally Sensation decreased to monofilament exam. Vibratory sensation sensed is decreased with 128 Hz tuning fork Results AMB Hemoglobin A1c AMB Hemoglobin A1c 5.8 % Last Edit by LEE Vance on 04/30/24 09:35 Results Reviewed Results Reviewed: Laboratory Last Values Glucose (Clinic) 84 mg/dL (60-115) 04/30/24 09:25 Assessment & Plan Assessment & Plan (1) Diabetes type 2, uncontrolled: Code(s): E11.65 - Type 2 diabetes mellitus with hyperglycemia Category: Medical Plan: This is a 63-year-old female with a history of type 2 diabetes being treated with metformin and Victoza in the setting of CKD stage IIIB. Would discontinue the metformin in light of the decreased renal function. Can always restart half dose metformin 500 mg b.i.d. if needed in the future. Can follow up with primary care diabetes team here Orders: Orders AMB Hemoglobin A1c Today E11.65 - Type 2 diabetes mellitus with hyperglycemia, Z13.9 - Encounter for screening, unspecified Coding Level of Care Code Est Pt Level 4 (47206) Complex EM visit Add On G2211 Diagnoses Diabetes type 2, uncontrolled E11.65
[2024-04-30 09:28] LABS: Glucose, Whole Blood 84 mg/dL (60-115)
== END 2024-04-30 09:42 | disposition home or self-care (01) ==
PROVIDERS: PCP Registered Nurse; Visit Provider Internal Medicine Endocrinology, Diabetes & Metabolism
DX: Z13.9 Encounter for screening, unspecified (principal); E11.65 Type 2 diabetes mellitus with hyperglycemia
CPT/HCPCS: 99214

== ENCOUNTER → 2024-04-30 09:00 | Outpatient (BNVA) | payer MEDICAID, SELFPAY | PROVIDERS: PCP Registered Nurse; Visit Provider Internal Medicine Endocrinology, Diabetes & Metabolism | DX: E11.65 Type 2 diabetes mellitus with hyperglycemia (principal); E11.22 Type 2 diabetes mellitus with diabetic chronic kidney disease; N18.32 Chronic kidney disease, stage 3b | CPT/HCPCS: 82947; 83036; 99212 ==

== ENCOUNTER 2024-08-01 09:57 | Outpatient (AMB) | payer MEDICARE, MEDICAID, SELFPAY ==
[2024-08-01 10:07] VITALS: BP 108/68; PULSE 65; O2SAT 100; BMI 24.9
--- NOTE | 2024-08-01 10:07 | MHC.OFFVIS ---
Vital Signs 08/01/24 10:07 Height 5 ft 2 in Weight 136 lb BMI 24.9 BP 108/68 Blood Pressure Location Lt brachial Position Sitting Pulse 65 Pulse Source Pulse Oximeter Pulse Oximetry (%) 100 Oxygen Delivery Method Room Air Intake Visit Reasons: Osteopenia Intake Note: Patient is here for follow up on osteopenia. 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 Name: [id number] Haylee Allergies aspirin [ASA] Allergy (Intermediate, Verified 04/30/24 09:22) ITCHY, HOT, AND HEADACHE calcium Allergy (Intermediate, Verified 04/30/24 09:22) Vomiting Penicillins Allergy (Intermediate, Verified 04/30/24 09:22) RASH tofacitinib [Xeljanz] Allergy (Intermediate, Verified 04/30/24 09:22) chest pain, headaches sulfasalazine Allergy (Unknown, Verified 04/30/24 09:22) unknown Medication List - Last Reconciled 08/01/24 by Samantha Costa MD albuterol sulfate 90 mcg/actuation (ProAir HFA) 2 puffs PO Q6H PRN alcohol swabs (Alcohol Prep Pads) USE DIRECTED SIX TIMES DAILY allopurinol 200 mg (2 x 100 mg) PO QPM aripiprazole (Abilify) 10 mg PO .every 2 days artifi.tears(hypromellose)(PF) 0.3% 1 drp ophthalmic (eye) Q4-6H PRN atorvastatin 20 mg PO DAILY blood sugar diagnostic (FreeStyle Lite Strips) As directed blood-glucose meter (FreeStyle [place] Lite kit) As directed cane As directed cyclobenzaprine 10 mg PO BEDTIME docusate sodium (Colace) 100 mg PO BID furosemide 40 mg PO .every 2 days gabapentin 900 mg PO BEDTIME Humira(CF) Pen (adalimumab) 40 mg (0.4 mL) subcut Q2W NS hydrocodone-acetaminophen 5-325 mg 1 tab PO Q6H PRN irbesartan 75 mg PO DAILY levothyroxine 75 mcg PO DAILY melatonin 10 mg PO BEDTIME PRN metformin ER 1,000 mg (2 x 500 mg) PO BID metoprolol tartrate 25 mg PO BID naloxone 4 mg/actuation (Narcan) 1 spray intranasal Q2M omeprazole magnesium (Prilosec OTC) 20 mg PO DAILY pen needle, diabetic (BD Ultra-Fine Milly Pen Needle) USE 1 DAILY WITH VICTOZA polyethylene glycol 3350 (Miralax) 17 grams PO DAILY prednisone 5 mg PO DAILY semaglutide (Ozempic) 1 mg (0.75 mL) subcut QWEEK sennosides (senna) 8.6 mg PO DAILY zolpidem (Ambien) 5 mg PO BEDTIME PRN HPI Comments Details: Exercise Instruct# [id number] Vinicius Patient is a 63 y.o. 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 Today she overall feels better on the Humira but complains of pain everywhere especially her low back (thinks her sciatica is getting worse, has appointment for spinal injection in August), neck and shoulder pain. Denies any rashes, oral/nasal ulcers, alopecia, new photosensitivity. Rheumatologic History: Patient states that she presented in the with joint pain, rash and was diagnosed with lupus by a physician in [place]. She was started on prednisone and medication. 1st notes seen in the system is from 08/21/2020 at that time she was on leflunomide and prednisone for seronegative inflammatory arthritis. There were concerns brought in by patient that she has lupus however repeat serologies done here were unremarkable at that time. She then followed up with Dr. Carrillo 03/22/2022 hand that that time the leflunomide was stopped as it was unlikely that she was taking it and she was considered to be in stable condition. She then followed up with us about 2 years later with Jolly Quinonez 11/23/2023. During that visit she stated that she initially saw a doctor [place] in 2012 at that time there was a positive PHYLLIS and positive DECKHAND CLAM DREDGE and he thought she had lupus/undifferentiated connective tissue disease and her symptoms were initially controlled by prednisone. During that October visit she did not recall previously being on hydroxychloroquine, methotrexate, azathioprine, Benlysta or any other medications that are considered steroid sparing for lupus. She has also seen Dr. Reyes and Dr. Zepeda in the past but those records are not currently available. During that October visit Jolly Quinonez thought that she was having a flare of her underlying autoimmune disease and restarted her on leflunomide 10 mg At some point it was thought that the leflunomide was not enough and she was started on Humira Medication History: Xeljanz 2019 for 2-3 doses: stopped due to nausea, headaches and chest pain after 2 doses Actemra ?duration: stopped due to elevated BP Kevzara (Sarilumab): stopped 2/2 extreme fatigue and subjective fluid retention Sulfasalazine: stopped 2/2 GI issues Plaquenil: Stopped 2/2 side effects Leflunomide: 2020 - 2021. Stopped since patient thought to be in remission and she was unlikely taking same Humira started 12/2023 [facility] Medical History (Updated 08/01/24 @ 11:55 by Samantha Costa MD) On allopurinol therapy Gout Breast calcification, right Long-term use of immunosuppressant medication Positive PHYLLIS (antinuclear antibody) Fibromyalgia History of primary hyperparathyroidism Osteopenia Dyslipidemia Hypothyroidism LONA on CPAP Bronchial asthma Epidermal inclusion cyst Morbid obesity Gout of right foot PHYLLIS positive Seronegative rheumatoid arthritis Diabetes type 2, uncontrolled Surgical History History of surgery Hx of excision of mass History of kidney surgery S/P breast lumpectomy H/O parathyroidectomy Hx of cholecystectomy H/O tubal ligation Family History Daughter History of breast cancer Father Cirrhosis Diabetes Arthritis Mother Arthritis Sister Diabetes Social History Alcohol intake: never Patient Tobacco Use Status: Former Tobacco user Tobacco use type: Cigarette Substance Use Type: Marijuana Female Reproductive History Menstrual Age of Menarche: 11 Review of Systems Const Details: Review of Systems Constitutional: Denies fever, chills, weight loss ENT: Denies vision changes, eye pain or eye redness, dental caries, dry mouth GI: Denies nausea, vomiting, diarrhea, abdominal pain, change in BM Pulm: Denies SOB, PEREZ, hemoptysis, wheezing Cards: Denies chest pain, palpitations Skin: Denies Raynaud's, rash, nail changes, photosensitivity, COLOR CONSULTANT: Denies headaches, weakness, paresthesias, recurrent falls MSK: Complains of joint pain and joint stiffness. Denies joint swelling, muscle weakness, bone pain All other systems reviewed and are unremarkable except noted above Physical Exam Const Other: Physical Examination Patient well appearing and in no apparent painful distress Able to rise from chair without support. ?Gait normal. Constitutional: ?Mucous membranes pink and moist patient alert and cooperative HEENT: ?Conjunctiva and sclera clear. ?Pupils equal round and reactive to light. ?No lymphadenopathy. ?Normal dentition. Resp: ?Normal respiratory effort and able to speak in complete sentences. ?Clear to auscultation bilaterally. ?No crackles, rales, rhonchi, wheezes heard. Cards: ?Regular rate and rhythm. ?S1 and S2 heard no murmurs. ?Radial pulses intact bilaterally MSK: ?No deformity, swelling, abnormalities noted to bilateral hands. ?No evidence of synovitis. ?Able to move all joints with full range of motion, without limitation. Several fibromyalgia tender points positive Results Reviewed Results Reviewed: Results reviewed Laboratory Tests 11/23/23 11/23/23 02/08/24 15:00 15:12 15:18 WBC 9.6 RBC 4.48 Hgb 12.9 Hct 39.7 Plt Count 416 H D ESR 38 H Sodium Potassium Chloride Carbon Dioxide BUN Creatinine Uric Acid Calcium Total Bilirubin AST ALT Alkaline Phosphatase C-Reactive Protein Total Protein Albumin Urine Protein Negative Urine Blood Negative U Random Total Protein PHYLLIS Screen POSITIVE A PHYLLIS Titer > OR = 1:1280 A PHYLLIS Titer 2 1:80 H PHYLLIS Pattern 2 A SS-A/Ro Antibody <1.0 NEG SS-B/La Antibody <1.0 NEG Sm ([place]ills) Antibody <1.0 NEG SM/DECKHAND CLAM DREDGE IgG Antibody <1.0 NEG Double Strand DNA Ab <1 Centromere B Antibody <1.0 NEG Complement C3 138 Complement C4 40 03/28/24 04/11/24 04/11/24 10:40 15:30 15:34 WBC 8.9 RBC 4.35 Hgb 12.8 Hct 39.3 Plt Count 342 ESR 14 Sodium 142 139 Potassium 3.9 4.8 D Chloride 100 99 Carbon Dioxide 31 H 31 H BUN 29 H 28 H Creatinine 1.44 H 1.54 H Uric Acid 5.3 Calcium 10.6 H D Total Bilirubin 0.3 AST 21 ALT 16 Alkaline Phosphatase 38 L C-Reactive Protein < 0.10 Total Protein 7.4 Albumin 4.1 Urine Protein Negative Urine Blood Negative U Random Total Protein < 7 PHYLLIS Screen POSITIVE A PHYLLIS Titer 1:1280 H PHYLLIS Titer 2 1:40 H PHYLLIS Pattern 2 Nuclear, Speckled A SS-A/Ro Antibody SS-B/La Antibody Sm (Wills) Antibody SM/DECKHAND CLAM DREDGE IgG Antibody Double Strand DNA Ab Centromere B Antibody Complement C3 78 L Complement C4 18 Assessment & Plan Assessment & Plan (1) Seronegative rheumatoid arthritis: Comment: Humira started 12/2023 Recent Leflunomide 20mg daily nausea and vomiting. Tried Xeljanz but it caused nausea, headaches and chest pain after 2 doses so she stopped the medication. Could not tolerate Actemra due to increased blood pressure. Could not tolerate Kevzara due to extreme fatigue and subjective fluid retention. She could not tolderate sulfasalazine. She could not previously take plaquenil because of side effects. Code(s): M06.00 - Rheumatoid arthritis without rheumatoid factor, unspecified site Category: Medical Plan: #Seronegative Inflammatory arthritis vs Arthritis related to UCTD (lupus like) This is a very difficult patient. She has a very long history of inflammatory arthritis that is hard to truly diagnose. I do believe that she had some lupus-like syndrome in the past maybe undifferentiated connective tissue disease given her history of positive PHYLLIS and DECKHAND CLAM DREDGE as well as history of photosensitive rash. However she likely did not meet criteria for lupus at that time. Because of this she has been treated with a variety of medications more so aimed at inflammatory arthritis similar to RA. I had a very long discussion with the patient about treatment plan and moving forward. Ideally given her history of a lupus-like syndrome I would not have wanted to start her on Humira given its history of inducing PHYLLIS and dsDNA and potentially causing a drug-induced lupus type syndrome. However this patient is very resistant to change especially since she has had to endure a lot of pain to the point where she could not even get out of bed. So we will continue with the Humira and low-dose prednisone. I spoke with her about monitoring for signs and symptoms of worsening rash or worsening joint pain while on the Humira. I told her not to discontinue the Humira as this is 1 of the things that is controlling her symptoms. (2) Fibromyalgia: Code(s): M79.7 - Fibromyalgia Category: Medical Plan: #Fibromyalgia Patient definitely has fibromyalgia complicating her underlying disease. She has several fibromyalgia tender points on examination. Currently on gabapentin 900 mg at night and we will continue this. Had a long discussion with her about the importance of movement and exercise though she was resistant to movements stating that it would make her feel worse I encouraged her to try water therapy or water aerobics at the [facility]. I also told her that fibromyalgia is a difficult disease to treat with no targeted treatment options. (3) Gout: Code(s): M10.9 - Gout, unspecified Category: Medical Qualifiers: Gout site: unspecified site Gout etiology: idiopathic Chronicity: chronic Presence of tophus: without tophus Qualified Code(s): M1A.00X0 - Idiopathic chronic gout, unspecified site, without tophus (tophi) Plan: #Gout Currently stable on allopurinol therapy. No recent flares (4) Positive PHYLLIS (antinuclear antibody): Code(s): R76.8 - Other specified abnormal immunological findings in serum Category: Medical Plan: #Positive PHYLLIS/UCTD/Overlap Syndrome Patient with positive PHYLLIS 1 in 12 80 speckled without ERIC. Also with low complements. At next visit will discuss starting Plaquenil. We will continue monitoring with complement, urine, double-stranded. 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: Code(s): Z79.52 - ferry terminal agent (current) use of systemic steroids Category: Medical Plan: #Long-term Use of Steroids Discussed with patient the risks and benefits of steroid for managing the rheumatic condition Benefits include: - Reduced pain, improved mobility, increased participation in activities, and decreased progression of disease Risks include: - GI upset, potential ultrasound worsening or formation (especially in patients > 65 years old), elevated blood pressure/worsening hypertension, elevated blood sugar/worsening diabetes control, worsening of bone density, elevated lipids/worsening triglycerides, cataract formation, weight gain Recommended using proton pump inhibitors (PPIs) for the duration of steroid use to reduce the risk of gastric ulcers and vitamin-D daily to reduce the risk of osteoporosis Labs checked: ?A1c, T spot, hepatitis-B and C serologies Pneumocystis jiroveci prophylaxis: ?Patient with risk factors including steroids greater than 50 mg for more than 30 days, age greater than 60 years, and lung involvement from underlying rheumatic disease requires prophylaxis and will be given so (6) Long-term use of immunosuppressant medication: Comment: Leflunomide cause headache and NV Code(s): Z79.899 - Other long wall mining machine tender (current) drug therapy Category: Medical Plan: #Long-term Use of TNF Inhibitors: Humira Discussed with the patient the benefits and risks of TNF inhibitors for the management of the rheumatic condition Benefits include reduce pain, maintenance of remission and reduction of flares as well as ?progression of the disease Risks include injection sites/infusion reactions, serious infections (such as bacterial infections, opportunistic infections), malignancy, delaminating syndromes, autoimmune phenomena, CHF exacerbations, palmar plantar psoriasis and cytopenias Recommended rotating injection sites, and holding medication during and for up to 1 week after resolution of a febrile illness or open skin wound (7) Osteopenia: Code(s): M85.80 - Other specified disorders of bone density and structure, unspecified site Category: Medical Plan: #Osteopenia Patient with osteopenia based on 2021 DEXA scan. Currently receiving treatment for her osteopenia likely due to elevated FRAX index. Encouraged her to continue vitamin-D supplication. (8) History of primary hyperparathyroidism: Code(s): Z86.39 - Personal history of other endocrine, nutritional and metabolic disease Category: Medical Plan: Patient with history of hyperparathyroidism status post surgery with removal of 3 parathyroid glands. Also has low ALP which could be seen in the setting of her hyperparathyroidism. Would want to still check vitamin B6 serum just to make sure that she does not have hypophosphatasia although this is unlikely. (9) On allopurinol therapy: Code(s): Z79.899 - Other long wall mining machine tender (current) drug therapy Category: Medical Plan: #Long-term Current Use of Allopurinol Risks and benefits of allopurinol discussed with patient Benefits include decreased gout flares, remission of gout and reduction of tophi Risks include allopurinol hypersensitivity syndrome which is a severe cutaneous adverse reaction associated with allopurinol use particularly in patients who are HLA [id number] positive, increased transaminases, GI upset including diarrhea, nausea and vomiting, and other dermatologic manifestations. Plan I spent 60 minutes reviewing the record and labs, seeing the patient, discussing the treatment plan and documenting in the medical record Coding Level of Care Code Est Pt Level 5 (55950) Complex EM visit Add On G2211 Diagnoses Seronegative rheumatoid arthritis M06.00 Fibromyalgia M79.7 Idiopathic chronic gout without tophus, unspecified site M1A.00X0 Gout site: unspecified site Gout etiology: idiopathic Chronicity: chronic Presence of tophus: without tophus Positive PHYLLIS (antinuclear antibody) R76.8 custodial systemic steroid user Z79.52 Long-term use of immunosuppressant medication Z79.899 Osteopenia M85.80 History of primary hyperparathyroidism Z86.39 On allopurinol therapy Z79.899
== END 2024-08-01 11:26 | disposition home or self-care (01) ==
PROVIDERS: PCP Registered Nurse; Referring Provider Registered Nurse; Visit Provider Student in an Organized Health Care Education/Training Program
DX: M06.00 Rheumatoid arthritis without rheumatoid factor, unspecified site (principal); M79.7 Fibromyalgia; M1A.00X0 Idiopathic chronic gout, unspecified site, without tophus (tophi); R76.8 Other specified abnormal immunological findings in serum; Z79.52 Long term (current) use of systemic steroids; Z79.899 Other long term (current) drug therapy; M85.80 Other specified disorders of bone density and structure, unspecified site; Z86.39 Personal history of other endocrine, nutritional and metabolic disease
CPT/HCPCS: 99215

== ENCOUNTER → 2024-08-01 09:57 | Outpatient (BNVA) | payer MEDICAID, SELFPAY | PROVIDERS: PCP Registered Nurse; Visit Provider Student in an Organized Health Care Education/Training Program | DX: M06.00 Rheumatoid arthritis without rheumatoid factor, unspecified site (principal); M79.7 Fibromyalgia; M1A.00X0 Idiopathic chronic gout, unspecified site, without tophus (tophi); M85.80 Other specified disorders of bone density and structure, unspecified site; R76.8 Other specified abnormal immunological findings in serum; Z79.52 Long term (current) use of systemic steroids; Z79.899 Other long term (current) drug therapy; Z86.39 Personal history of other endocrine, nutritional and metabolic disease | CPT/HCPCS: 99212 ==

== ENCOUNTER → 2024-08-08 10:45 | Outpatient (BNV) | payer MEDICARE, MEDICAID, SELFPAY | PROVIDERS: PCP General Practice; Visit Provider Internal Medicine | DX: Z12.31 Encounter for screening mammogram for malignant neoplasm of breast (principal) | CPT/HCPCS: 77063; 77067 ==

== ENCOUNTER 2024-08-08 10:54 | Outpatient (REF) | payer MEDICAID, SELFPAY ==
--- NOTE | ~2024-08-08 | MM_ITS ---
EXAMINATION: MM SCREENING DIGITAL BREAST TOMOSYNTHESIS, BILATERAL CLINICAL INFORMATION: Screening. Asymptomatic. COMPARISON: Mammography: Comparison is made with available priors TECHNIQUE: Digital breast mammography with tomosynthesis is performed in both the craniocaudal and mediolateral oblique views along with computer-aided detection (CAD). FINDINGS: There are scattered areas of fibroglandular density (ACR BI-RADS breast composition Category b). Right marker clip. There are no significant masses, abnormal calcifications, or other abnormalities. MM/MM tomosynthesis screening BI IMPRESSION: No mammographic evidence of malignancy. ASSESSMENT: BI-RADS BI-RADS 2 - Benign Findings RECOMMENDATION: Routine annual mammography screening. 1 year F/U This examination should not preclude the clinical evaluation of a suspicious palpable abnormality. This patient's information was entered into a reminder system with a target due date for their next mammogram. Electronically signed by: Kim Gaytan DO 08/20/2024 05:58 PM EDT
--- NOTE | ~2024-08-08 | MM_ITS ---
EXAMINATION: BONE DENSITOMETRY CLINICAL INDICATION: Other specified disorders of bone density and structure, unspecified. COMPARISON: Previous BD dated 07/20/2022 and baseline BD dated 12/12/2009. TECHNIQUE: Using a [employer] DXA System (software version: 13.1) manufactured by [employer], dual-energy x-ray absorptiometry was performed of the lumbar spine and left hip. The images are of good technical quality. Summary results are attached. FINDINGS: LEFT FEMUR, NECK: Current: BMD 0.756 g/cm2, Z-score -0.5, T-score -2.0, osteopenia. Prior: BMD 0.786 g/cm2. Baseline: BMD 1.011 g/cm2. LEFT FEMUR, TOTAL: Current: BMD 0.940 g/cm2, Z-score 0.7, T-score -0.5, normal, 7.8% decrease from previous, 25.2% decrease from baseline (<5% change is not significant). Prior: BMD 1.020 g/cm2. Baseline: BMD 1.256 g/cm2. AP SPINE L1-L4: Current: BMD 1.133 g/cm2, Z-score 1.3, T-score -0.4, normal, 1.5% decrease from previous, 19.9% decrease from baseline (<5% change is not significant). Prior: BMD 1.150 g/cm2. Baseline: BMD 1.415 g/cm2. IDENTIFIED RISK FACTORS: Glucocorticoids (chronic), menopause, recurrent falls, rheumatoid arthritis, secondary osteoporosis (hyperthyroidism, intestinal or bowel disease). HISTORY OF FRACTURE: None listed. MEDICATIONS: Vitamin D. MM/XR DEXA axial skeleton IMPRESSION: 1. DIAGNOSIS: Osteopenia based on the lowest T-score value of -2.0 in the femoral neck applying World Health Organization criteria. 2. 10-YEAR FRACTURE RISK PREDICTION, FRAX: Major osteoporotic fracture (clinical spine, forearm, hip or shoulder) 12.7%. Hip fracture 2.5%. 3. Treatment Recommendations: NOF guidelines recommend consideration for treatment in postmenopausal women and men age 50 and older presenting with the following: -A hip or vertebral (clinical or morphometric) fracture. -T-score less than or equal to -2.5 at the femoral neck or spine after appropriate evaluation to exclude secondary causes. -Low bone mass at the hip or spine and a 10-year fracture probability by FRAX of greater than or equal to 3% for hip fracture or greater than or equal to 20% for major osteoporotic fracture based on the [place] adapted WHO algorithm. 4. Other Recommendations: All treatment decisions require clinical judgment and consideration of individual patient factors, including patient preferences, comorbidities, previous drug use, risk factors not captured in the FRAX model (e.g. frailty, falls, vitamin D deficiency, increased bone turnover, interval significant decline in bone density) and possible under or overestimation of fracture risk by FRAX. Additional medical evaluation for secondary cause of low bone mineral density may be appropriate. FUTURE SCAN RECOMMENDATION: People with diagnosed cases of osteoporosis or at high risk for fracture should have regular bone mineral density tests. For patients eligible for Medicare, routine testing is allowed once every 2 years. The testing frequency can be increased to one year for patients who have rapidly progressing disease, those who are receiving or discontinuing medical therapy to restore bone mass, or have additional risk factors. Electronically signed by: Onofre Montes MD 08/09/2024 05:01 PM EDT
== END 2024-08-08 10:55 | disposition home or self-care (01) ==
LOC: HO.MAMMO 10:54
PROVIDERS: PCP General Practice; Visit Provider Internal Medicine Endocrinology, Diabetes & Metabolism
DX: Z12.31 Encounter for screening mammogram for malignant neoplasm of breast (principal); Z13.820 Encounter for screening for osteoporosis; M85.80 Other specified disorders of bone density and structure, unspecified site; Z78.0 Asymptomatic menopausal state
CPT/HCPCS: 77063; 77067; 77080

== ENCOUNTER 2024-08-15 09:17 | Outpatient (AMB) | payer MEDICARE, MEDICAID, SELFPAY ==
--- NOTE | 2024-08-15 09:19 | MHC.OFFVIS ---
Vital Signs 08/15/24 09:20 Height 5 ft 2 in Weight 132 lb 4.438 oz BMI 24.2 BP 118/74 Blood Pressure Location Lt brachial Position Sitting Pulse 80 Pulse Source Pulse Oximeter Intake Visit Reasons: f/u osteoporosis-conf Intake Note: Patient present today for Osteoporosis follow up visit. 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 Offered & Declined Accompanied by: Son Allergies aspirin [ASA] Allergy (Intermediate, Verified 08/15/24 09:26) ITCHY, HOT, AND HEADACHE calcium Allergy (Intermediate, Verified 08/15/24 09:26) Vomiting Penicillins Allergy (Intermediate, Verified 08/15/24 09:26) RASH tofacitinib [Xeljanz] Allergy (Intermediate, Verified 08/15/24 09:26) chest pain, headaches sulfasalazine Allergy (Unknown, Verified 08/15/24 09:26) unknown Medication List - Last Reconciled 08/15/24 by Isael Hollis MD albuterol sulfate 90 mcg/actuation (ProAir HFA) 2 puffs PO Q6H PRN alcohol swabs (Alcohol Prep Pads) USE DIRECTED SIX TIMES DAILY allopurinol 200 mg (2 x 100 mg) PO QPM 90 days aripiprazole (Abilify) 10 mg PO .every 2 days artifi.tears(hypromellose)(PF) 0.3% 1 drp ophthalmic (eye) Q4-6H PRN atorvastatin 20 mg PO DAILY blood sugar diagnostic (FreeStyle Lite Strips) As directed blood-glucose meter (FreeStyle [place] Lite kit) As directed cane As directed docusate sodium (Colace) 100 mg PO BID furosemide 40 mg PO .every 2 days gabapentin 900 mg (3 x 300 mg) PO BEDTIME 90 days Humira(CF) Pen (adalimumab) 40 mg (0.4 mL) subcut Q2W 90 days NS hydrocodone-acetaminophen 5-325 mg 1 tab PO Q6H PRN irbesartan 75 mg PO DAILY levothyroxine 75 mcg PO DAILY melatonin 10 mg PO BEDTIME PRN metformin ER 1,000 mg (2 x 500 mg) PO BID metoprolol tartrate 25 mg PO BID naloxone 4 mg/actuation (Narcan) 1 spray intranasal Q2M omeprazole magnesium (Prilosec OTC) 20 mg PO DAILY pen needle, diabetic (BD Ultra-Fine Milly Pen Needle) USE 1 DAILY WITH VICTOZA polyethylene glycol 3350 (Miralax) 17 grams PO DAILY prednisone 5 mg PO DAILY 90 days semaglutide (Ozempic) 1 mg (0.75 mL) subcut QWEEK sennosides (senna) 8.6 mg PO DAILY zolpidem (Ambien) 5 mg PO BEDTIME PRN HPI Comments Details: 63-year-old female, today for follow-up visit ,. She has Other PMH of fibromyalgia, SLE, cholecystitis status post cholecystectomy, nephrolithiasis, hypertension likely due to fibromuscular dysplasia of the renal arteries requiring stents placement, primary hyperparathyroidism s/p parathyroidectomy and hypothyroidism She [address] Cristobal on 11/12/13, only left inferior parathyroid gland left. She is Currently on LT4 75 mcg. 100% compliance with LT4, good method of administration. For Diabetes she is on Metformin ER 2 500 mg bid, Victoza 1.8 mg daily. Last saw optho in 07/2023 She Currently is on Prednisone 5 mg daily for SLE. DEXA Scan 07/14/18 AP SPINE L1-L4: Current: BMD 1.226 g/cm2, Z-score 0.6, T-score 0.4, normal, 11.8% increase from previous, 13.4% decrease from baseline (<5% change is not significant). Prior: BMD 1.097 g/cm2. Baseline: BMD 1.415 g/cm2. LEFT FEMUR, NECK: Current: BMD 0.809 g/cm2, Z-score -1.1, T-score -1.7, osteopenia. Prior: BMD 0.907 g/cm2. Baseline: BMD 1.011 g/cm2. LEFT FEMUR, TOTAL: Current: BMD 1.121 g/cm2, Z-score 1.1, T-score 0.9, normal, 3.9% decrease from previous, 10.7% decrease from baseline (<5% change is not significant). Prior: BMD 1.167 g/cm2. Baseline: BMD 1.256 g/cm2. LEFT FOREARM RADIUS 33%: Current: BMD 0.847 g/cm2, Z-score 0.5, T-score -0.3, normal, 6.1% decrease from baseline (<5% change is not significant). Baseline: BMD 0.902 g/cm2. Laboratory Tests 01/29/21 01/29/21 02/11/21 15:35 15:35 09:15 Hgb 13.3 Hct 42.5 Sodium 136 Potassium 4.3 Creatinine 0.91 Estimated GFR > 60 Random Glucose 110 Calcium 9.8 AST 16 ALT 17 Alkaline Phosphatase 53 D Albumin 4.5 Triglycerides 109 Cholesterol 155 LDL Cholesterol Direct LDL Cholesterol, Calc 87 HDL Cholesterol 47 02/11/21 09:15 Hgb Hct Sodium Potassium Creatinine Estimated GFR Random Glucose Calcium AST ALT Alkaline Phosphatase Albumin Triglycerides Cholesterol LDL Cholesterol Direct 92 LDL Cholesterol, Calc HDL Cholesterol No fx since last visit . Last DEXA was stable [facility] Medical History (Updated 08/01/24 @ 11:55 by Samantha Costa MD) On allopurinol therapy Gout Breast calcification, right Long-term use of immunosuppressant medication Positive PHYLLIS (antinuclear antibody) Fibromyalgia History of primary hyperparathyroidism Osteopenia Dyslipidemia Hypothyroidism LONA on CPAP Bronchial asthma Epidermal inclusion cyst Morbid obesity Gout of right foot PHYLLIS positive Seronegative rheumatoid arthritis Diabetes type 2, uncontrolled Surgical History History of surgery Hx of excision of mass History of kidney surgery S/P breast lumpectomy H/O parathyroidectomy Hx of cholecystectomy H/O tubal ligation Family History Daughter History of breast cancer Father Cirrhosis Diabetes Arthritis Mother Arthritis Sister Diabetes Social History Alcohol intake: never Patient Tobacco Use Status: Former Tobacco user Tobacco use type: Cigarette Substance Use Type: Marijuana Female Reproductive History Menstrual Age of Menarche: 11 Physical Exam Vital Signs: Last Vital Signs Pulse 80 08/15/24 09:20 BP 118/74 08/15/24 09:20 BMI result Body Mass Index 24.2 Assessment & Plan Assessment & Plan (1) Osteopenia: Code(s): M85.80 - Other specified disorders of bone density and structure, unspecified site Category: Medical Plan: She has low bone mass but is chronically on steroids. This places her at high risk for fracture . Recent DEXA showed decreases in bone density. She received a dose of Reclast in August 2022. . Recent DEXA showed stability in bone density and low bone mass Would continue vitamin-D supplementation . Will check urine NTX and if elevated if will give 2nd dose of Reclast . Orders: Orders Collagen Crosslinks NTX Today M85.80 - Other specified disorders of bone density and structure, unspecified site Coding Level of Care Code Est Pt Level 3 (55517) Diagnoses Osteopenia M85.80
[2024-08-15 09:20] VITALS: BP 118/74; PULSE 80; BMI 24.2
== END 2024-08-15 09:46 | disposition home or self-care (01) ==
PROVIDERS: PCP Registered Nurse; Visit Provider Internal Medicine Endocrinology, Diabetes & Metabolism
DX: M85.80 Other specified disorders of bone density and structure, unspecified site (principal)
CPT/HCPCS: 99213

== ENCOUNTER → 2024-08-15 09:17 | Outpatient (BNVA) | payer MEDICAID, SELFPAY | PROVIDERS: PCP Registered Nurse; Visit Provider Internal Medicine Endocrinology, Diabetes & Metabolism | DX: M85.80 Other specified disorders of bone density and structure, unspecified site (principal) | CPT/HCPCS: 99212 ==

== ENCOUNTER 2024-09-10 01:21 | Emergency (ER) | payer MEDICARE, MEDICAID, SELFPAY ==
[2024-09-10] VITALS (9 sets, daily range): BP systolic 122–189; BP diastolic 64–111; PULSE 79–100; RESP 16–42; TEMP 36.6–37.1; O2SAT 94–100; BMI 23.9
--- NOTE | ~2024-09-10 | XR_ITS ---
EXAMINATION: XR CHEST CLINICAL INFORMATION: Shortness of breath. COMPARISON: June 21, 2019 TECHNIQUE: Frontal view of the chest was obtained. FINDINGS: The cardiomediastinal silhouette is within normal limits and stable. There is no focal lung consolidation or pleural effusions. The bony structures and the soft tissues are unremarkable. XR/XR chest 1V IMPRESSION: No acute cardiopulmonary process. Electronically signed by: Beau Cruz MD 09/10/2024 04:00 AM [facility]
--- NOTE | 2024-09-10 01:18 | ED_ITS ---
HPI - SOB/Dyspnea General Chief Complaint: Dyspnea Stated Complaint: COPD Exacerbation Source: patient and EMS Mode of arrival: EMS History of Present Illness ED Provider: martha KENNY Narrative: Patient's history of chronic asthma and sleep apnea using CPAP been sick for last few 4 days got worse in last 2 hrs with increased shortness of breath and anxiety saturating 90% on CPAP at home does not use any oxygen received DuoNeb treatment by EMS enroute no fever no chills other family member sick with flu Related Data Home Medications ?Medication ?Instructions ?Recorded ?Confirmed atorvastatin 20 mg tablet 20 mg PO DAILY 08/21/20 08/01/24 hydrocodone 5 mg-acetaminophen 325 1 tab PO Q6H PRN Pain 08/21/20 08/01/24 mg tablet omeprazole magnesium 20 mg 20 mg PO DAILY 08/21/20 08/01/24 tablet,delayed release (Prilosec OTC) aripiprazole 10 mg tablet (Abilify) 10 mg PO .every 2 days 03/22/22 08/01/24 artifi.tears(hypromellose)(PF) 0.3 1 drp ophthalmic (eye) Q4-6H PRN 03/22/22 08/01/24 % eye drops Dry Eye(S) docusate sodium 100 mg capsule 100 mg PO BID 03/22/22 08/01/24 (Colace) furosemide 40 mg tablet 40 mg PO .every 2 days 03/22/22 08/01/24 irbesartan 75 mg tablet 75 mg PO DAILY 03/22/22 08/01/24 levothyroxine 75 mcg capsule 75 mcg PO DAILY 03/22/22 08/01/24 melatonin 10 mg capsule 10 mg PO BEDTIME PRN Insomnia 03/22/22 08/01/24 naloxone 4 mg/actuation nasal 1 spray intranasal Q2M 03/22/22 08/01/24 spray (Narcan) polyethylene glycol 3350 17 17 g PO DAILY 03/22/22 08/01/24 gram/dose oral powder (Miralax) sennosides 8.6 mg capsule (senna) 8.6 mg PO DAILY 03/22/22 08/01/24 zolpidem 5 mg tablet (Ambien) 5 mg PO BEDTIME PRN Insomnia 03/22/22 08/01/24 metoprolol tartrate 25 mg tablet 25 mg PO BID 05/06/22 08/01/24 blood sugar diagnostic (FreeStyle #10 ea 07/22/22 08/01/24 Lite Strips) Previous Rx's ?Medication ?Instructions ?Recorded cane #1 ea 01/29/21 blood-glucose meter (FreeStyle #1 ea 01/15/22 [place] Lite kit) albuterol sulfate 90 mcg/actuation 2 puff PO Q6H PRN for dyspnea #8.5 03/22/22 aerosol inhaler (ProAir HFA) grams alcohol swabs (Alcohol Prep Pads) See Rx Instructions .Route 11/08/23 .COMPLEX #200 pad metformin 500 mg tablet,extended 1,000 mg (2 x 500 mg) PO BID #60 05/04/24 release 24 hr tabs semaglutide 1 mg/dose (4 mg/3 mL) 1 mg (0.75 mL) subcut QWEEK #3 mL 06/07/24 subcutaneous pen injector (Ozempic) allopurinol 100 mg tablet 200 mg (2 x 100 mg) PO QPM 90 days 08/01/24 #180 tabs gabapentin 300 mg capsule 900 mg (3 x 300 mg) PO BEDTIME 90 08/01/24 days #270 caps prednisone 5 mg tablet 5 mg PO DAILY 90 days #90 tabs 08/01/24 pen needle, diabetic 32 gauge x #100 ea 08/23/24 (Pentips) Humira(CF) Pen 40 mg/0.4 mL 40 mg (0.4 mL) subcut Q2W 90 days 09/04/24 subcutaneous kit (adalimumab) #2 ea azithromycin 500 mg tablet 500 mg PO DAILY 3 days #3 tabs 09/10/24 (Zithromax TRI-LLOYD) Allergies Allergy/AdvReac Type Severity Reaction Status Date / Time aspirin [ASA] Allergy Intermediate ITCHY, Verified 09/10/24 01:29 HOT, AND HEADACHE calcium Allergy Intermediate Vomiting Verified 09/10/24 01:29 Penicillins Allergy Intermediate RASH Verified 09/10/24 01:29 tofacitinib [Xeljanz] Allergy Intermediate chest Verified 09/10/24 01:29 pain, headaches sulfasalazine Allergy Unknown unknown Verified 09/10/24 01:29 Review of Systems 2 Review of Systems: Yes all other systems are reviewed and are negative PMFSH Past Medical History Medical History On allopurinol therapy Gout Breast calcification, right Long-term use of immunosuppressant medication Positive PHYLLIS (antinuclear antibody) Fibromyalgia History of primary hyperparathyroidism Osteopenia Dyslipidemia Hypothyroidism LONA on CPAP Bronchial asthma Epidermal inclusion cyst Morbid obesity Gout of right foot PHYLLIS positive Seronegative rheumatoid arthritis Diabetes type 2, uncontrolled Surgical History History of surgery Hx of excision of mass History of kidney surgery S/P breast lumpectomy H/O parathyroidectomy Hx of cholecystectomy H/O tubal ligation Family History Family History Daughter History of breast cancer Father Cirrhosis Diabetes Arthritis Mother Arthritis Sister Diabetes Social History Social History Alcohol intake: never Patient Tobacco Use Status: Former Tobacco user Tobacco use type: Cigarette Smoked in Last 30 Days: No Use of substances other than those prescribed or required for medical reasons: No Substance Use Type: Marijuana Advance Directives: No Advance Directives Information Provided: No Physical Exam 2 Vital Signs: Vital Signs: Last Vital Signs Temp 97.9 F 09/10/24 06:20 Pulse 84 09/10/24 06:20 Resp 16 09/10/24 06:20 BP 122/64 09/10/24 06:20 Pulse Ox 97 09/10/24 06:20 O2 Del Method Room Air 09/10/24 06:20 BMI result Body Mass Index 23.9 Appearance: Alert. Oriented X3. In moderate respiratory distress Eyes: No pallor or icterus ENT: Pharynx normal. Oral Mucosa moist Neck: Normal inspection. Neck supple. CVS: Normal heart rate and rhythm. Pulses normal. Respiratory: Moderate respiratory distress. Equal air entry bilateral, bilateral wheeze Abdomen: Soft and nontender. Bowel sounds are present, no mass palpable, Skin: Skin warm and dry. Normal skin color. Normal skin turgor. Extremities: No lower extremity edema. No calf tenderness Neuro: Oriented X 3. No motor deficit. Medications Administered Discontinued Medications Generic Name Dose Route Start Last Admin Trade Name Freq PRN Reason Stop Dose Admin Azithromycin 500 mg 09/10/24 05:49 09/10/24 06:11 Azithromycin 500 Mg Tablet PO 09/10/24 05:50 500 mg ONCE ONE Administration Albuterol Sulfate 2.5 mg/ 0 mg 09/10/24 01:35 09/10/24 01:36 Albuterol/Ipratropium 3 ml INHALE 09/10/24 01:36 1 dose ONCE ONE Administration Magnesium Sulfate 2 gm in 50 mls @ 150 mls/hr 09/10/24 01:30 09/10/24 02:01 Magnesium Sulfate/H2o IV 09/10/24 01:49 Infused ONCE ONE Infusion Lorazepam 1 mg 09/10/24 02:30 09/10/24 02:34 Lorazepam 2 Mg/Ml Vial IVPUSH 09/10/24 02:31 1 mg ONCE ONE Administration Methylprednisolone Sodium Succinate 125 mg 09/10/24 01:30 09/10/24 01:41 Methylprednisolone Sod Succ 125 Mg/2 Ml Vial IVPUSH 09/10/24 01:31 125 mg ONCE ONE Administration Morphine Sulfate 4 mg 09/10/24 02:30 09/10/24 02:34 Morphine Sulfate 4 Mg/Ml Cartridge IVPUSH 09/10/24 02:31 4 mg ONCE ONE Administration Protocol Ondansetron HCl 4 mg 09/10/24 01:26 09/10/24 01:39 Ondansetron Hcl 4 Mg/2 Ml Vial IVPUSH 09/10/24 01:27 4 mg ONCE ONE Administration Medical Decision Making Medical Decision Making [facility] Narrative: Patient has acute bronchitis with anxiety other family member also sick with influenza a patient has received steroids and magnesium sulfate had elevated lactic acid level type B from albuterol in nebulizing treatment will discharge patient home on Zithromax and advised to increase the dose of prednisone to 40 mg daily for 5 days patient has required high flow and CPAP on arrival was very anxious and short of breath at the time of discharge patient is saturating 98% at room air Differential Diagnosis Differential Diagnoses: The differential diagnosis associated with the presentation includes Admission/Observation Consideration of admission/observation: Escalation of care including admission/observation considered Lab Data [facility] Lab Attestation statement: I reviewed the patient's lab results. 09/10/24 01:30 09/10/24 01:30 Labs: Lab Results 09/10/24 09/10/24 09/10/24 Range/Units 01:30 01:42 03:42 WBC 12.7 H (4.8-10.8) X10*3/uL RBC 4.82 (4.20-5.50) X10*6/uL Hgb 14.3 (12.0-16.0) g/dl Hct 41.9 (37.0-47.0) % MCV 86.9 (80.0-98.0) fL MCH 29.7 (27.0-33.0) pg MCHC 34.1 (31.0-35.0) g/dl RDW 15.1 (11.0-16.0) % Plt Count 350 (160-400) X10*3/uL MPV 9.4 (9.4-12.3) fL Immature Gran % (Auto) 0.4 (0.0-0.4) % Neut % (Auto) 63.0 (45-73) % Lymph % (Auto) 29.1 (20-40) % [place] % (Auto) 6.5 (2-11) % Eos % (Auto) 0.8 (0-4) % Baso % (Auto) 0.2 (0-2) % Lymph # (Auto) 3.7 (1.2-4.9) X10*3/uL [place] # (Auto) 0.8 (0.1-1.2) X10*3/uL Eos # (Auto) 0.1 (0.0-0.4) X10*3/uL Baso # (Auto) 0.0 (0.0-0.2) X10*3/uL Abs Immat Gran (auto) 0.05 H (0.00-0.03) X10*3/uL Absolute Neuts (auto) 8.0 (2.0-8.3) x10*3/uL Absolute Nucleated RBC 0.000 (0.0-0.012) X10*3/uL Nucleated RBC % (auto) 0.0 (0.0-0.2) /100WBC Hold Blue Top SEE NOTE VBG pH 7.55 H (7.32-7.43) VBG pCO2 25 mmHg VBG pO2 51 mmHg VBG HCO3 22 (22-26) mmol/L VBG O2 Saturation 85.0 % VBG Base Excess 1.8 mmol/L Sodium 140 (135-145) mmol/L Potassium 3.2 L D (3.3-5.1) mmol/L Chloride 102 (96-108) mmol/L Carbon Dioxide 18 L (22-29) mmol/L Anion Gap 23 H (12-20) BUN 22 H (9-16) mg/dL Creatinine 1.41 H (0.5-1.4) mg/dL Estim Creat Clear Calc 31.5 Estimated GFR 37 Random Glucose 143 H (60-115) mg/dL Lactic Acid 3.2 H* (0.5-2.0) mmol/L Lactic Acid F/U @ 2Hr 1.7 (0.5-2.0) mmol/L Calcium 10.1 (8.4-10.2) mg/dL Total Bilirubin 0.4 (0.0-1.0) mg/dL AST 32 H (5-31) U/L ALT 21 (0-31) U/L Alkaline Phosphatase 50 (39-117) U/L Troponin I High Sens 7.8 8.3 (<3.5-17.0) ng/L B-Natriuretic Peptide 65 (<100) pg/mL Total Protein 8.2 H (6.5-8.0) g/dL Albumin 4.4 (3.5-5.0) g/dL Influenza Type A (PCR) (Negative) Influenza Type B (PCR) (Negative) RSV RNA Qual (PCR) (Negative) SARS-CoV-2 RNA (RT-PCR) (Negative) 09/10/24 Range/Units 04:45 WBC (4.8-10.8) X10*3/uL RBC (4.20-5.50) X10*6/uL Hgb (12.0-16.0) g/dl Hct (37.0-47.0) % MCV (80.0-98.0) fL MCH (27.0-33.0) pg MCHC (31.0-35.0) g/dl RDW (11.0-16.0) % Plt Count (160-400) X10*3/uL MPV (9.4-12.3) fL Immature Gran % (Auto) (0.0-0.4) % Neut % (Auto) (45-73) % Lymph % (Auto) (20-40) % [place] % (Auto) (2-11) % Eos % (Auto) (0-4) % Baso % (Auto) (0-2) % Lymph # (Auto) (1.2-4.9) X10*3/uL [place] # (Auto) (0.1-1.2) X10*3/uL Eos # (Auto) (0.0-0.4) X10*3/uL Baso # (Auto) (0.0-0.2) X10*3/uL Abs Immat Gran (auto) (0.00-0.03) X10*3/uL Absolute Neuts (auto) (2.0-8.3) x10*3/uL Absolute Nucleated RBC (0.0-0.012) X10*3/uL Nucleated RBC % (auto) (0.0-0.2) /100WBC Hold Blue Top VBG pH (7.32-7.43) VBG pCO2 mmHg VBG pO2 mmHg VBG HCO3 (22-26) mmol/L VBG O2 Saturation % VBG Base Excess mmol/L Sodium (135-145) mmol/L Potassium (3.3-5.1) mmol/L Chloride (96-108) mmol/L Carbon Dioxide (22-29) mmol/L Anion Gap (12-20) BUN (9-16) mg/dL Creatinine (0.5-1.4) mg/dL Estim Creat Clear Calc Estimated GFR Random Glucose (60-115) mg/dL Lactic Acid (0.5-2.0) mmol/L Lactic Acid F/U @ 2Hr (0.5-2.0) mmol/L Calcium (8.4-10.2) mg/dL Total Bilirubin (0.0-1.0) mg/dL AST (5-31) U/L ALT (0-31) U/L Alkaline Phosphatase (39-117) U/L Troponin I High Sens (<3.5-17.0) ng/L B-Natriuretic Peptide (<100) pg/mL Total Protein (6.5-8.0) g/dL Albumin (3.5-5.0) g/dL Influenza Type A (PCR) NEGATIVE (Negative) Influenza Type B (PCR) NEGATIVE (Negative) RSV RNA Qual (PCR) NEGATIVE (Negative) SARS-CoV-2 RNA (RT-PCR) NEGATIVE (Negative) Independent Interpretation I performed an independent interpretation of an: Plain X-Ray Radiology Impression Discussion of test interpretation with radiology: I have reviewed the radiologist's reading. External Record Review External record reviewed: Inpatient record, Outpatient record, Prior outpatient labs, Primary care record and Outside ED record Critical Care Time Critical Care Time Critical Care Time: Yes Total Critical Care Time: 55 Attestation: The patient was critically ill with a high probability of imminent or life threatening deterioration. I spent greater than ?60??minutes of discontinuous time evaluating the patient,delivering critical care at the bedside, discussing and evaluating pertinent data with consultants. Critical care time does not include time spent performing separately billable procedures or teaching. Total time spent performing critical care was ?55??minutes. Discharge Plan Discharge Clinical Impression: Acute bronchitis Patient Disposition: Home, Self-Care Instructions: Acute Bronchitis (ED) Additional Instructions: Continue to use your inhaler and nebulizing treatment Increase the dose of prednisone to 40 mg daily for 5 days Antibiotic as prescribed Follow with your PCP if not better Prescriptions: New azithromycin [Zithromax TRI-LLOYD] 500 mg tablet 500 mg PO DAILY 3 Days Qty: 3 0RF No Action albuterol sulfate [ProAir HFA] 90 mcg/actuation HFA aerosol inhaler 2 puff PO Q6H PRN (Reason: for dyspnea) Qty: 8.5 0RF alcohol swabs [Alcohol Prep Pads] Pads, Medicated See Rx Instructions .ROUTE .COMPLEX Qty: 200 11RF Dose Instruction: USE DIRECTED SIX TIMES DAILY Rx Instructions: USE DIRECTED SIX TIMES DAILY metformin 500 mg tablet extended release 24 hr 1,000 mg PO BID Qty: 60 5RF Ozempic 1 mg/dose (4 mg/3 mL) pen injector 1 mg subcut QWEEK Qty: 3 5RF (DME) pen needle, diabetic [Pentips] 32 gauge x 5/32 needle See Rx Instructions .ROUTE .COMPLEX Qty: 100 3RF Dose Instruction: USE 1 DAILY WITH VICTOZA Rx Instructions: USE 1 DAILY WITH VICTOZA Humira(CF) Pen 40 mg/0.4 mL pen injector kit 40 mg subcut Q2W 90 Days Qty: 2 2RF atorvastatin 20 mg tablet 20 mg PO DAILY omeprazole magnesium [Prilosec OTC] 20 mg tablet,delayed release (DR/EC) 20 mg PO DAILY hydrocodone-acetaminophen 5-325 mg tablet 1 tab PO Q6H PRN (Reason: Pain) furosemide 40 mg tablet 40 mg PO .every 2 days (DME) cane Device See Rx Instructions .ROUTE .MEDSUPPLY Qty: 1 0RF Rx Instructions: As directed (DME) blood-glucose meter [FreeStyle [place] Lite] Kit See Rx Instructions .Route Qty: 1 0RF Rx Instructions: As directed (DME) FreeStyle Lite Strips Strip See Rx Instructions .ROUTE QID Qty: 10 Rx Instructions: As directed aripiprazole [Abilify] 10 mg tablet 10 mg PO .every 2 days zolpidem [Ambien] 5 mg tablet 5 mg PO BEDTIME PRN (Reason: Insomnia) artifi.tears(hypromellose)(PF) 0.3 % drops 1 drp ophthalmic (eye) Q4-6H PRN (Reason: Dry Eye(S)) docusate sodium [Colace] 100 mg capsule 100 mg PO BID irbesartan 75 mg tablet 75 mg PO DAILY levothyroxine 75 mcg capsule 75 mcg PO DAILY melatonin 10 mg capsule 10 mg PO BEDTIME PRN (Reason: Insomnia) polyethylene glycol 3350 [Miralax] 17 gram/dose powder 17 g PO DAILY naloxone [Narcan] 4 mg/actuation spray,non-aerosol 1 spray intranasal Q2M Rx Instructions: spray 1 dose into ONE nostril; alternate nostrils w each dose until help arrives senna 8.6 mg capsule 8.6 mg PO DAILY metoprolol tartrate 25 mg tablet 25 mg PO BID gabapentin 300 mg capsule 900 mg PO BEDTIME 90 Days Qty: 270 0RF allopurinol 100 mg tablet 200 mg PO QPM 90 Days Qty: 180 0RF prednisone 5 mg tablet 5 mg PO DAILY 90 Days Qty: 90 0RF Interventions: ED Discharge Assessment Last Done: 09/10/24 06:20 Discharge Date/Time: 09/10/24 06:20 Print Language: [place]
--- NOTE | 2024-09-10 01:27 | ECG_ITS ---
Test Reason : CHEST PX Blood Pressure : / mmHG Vent. Rate : 091 BPM Atrial Rate : 091 BPM P-R Int : 218 ms QRS Dur : 070 ms QT Int : 408 ms P-R-T Axes : 061 -24 026 degrees QTc Int : 501 ms Sinus rhythm with 1st degree A-V block with occasional Premature ventricular complexes and Premature atrial complexes Prolonged QT Abnormal ECG When compared with ECG of 21-JUN-2019 18:44, Premature ventricular complexes are now Present Premature atrial complexes are now Present TN interval has increased Referred By: Pollo Bunch Electronically Signed By:Skyler Villa
[2024-09-10] MEDS: Albuterol Sulfate 2.5 MG, Albuterol/Iprat 2.5/0.5MG 3 ML 3 ML INHALE (01:36)
[2024-09-10] MEDS: ondansetron HCL 4 MG/2 ML VIAL IVPUSH (01:39)
[2024-09-10 01:41] LABS: Basophils Percent Auto 0.2 % (0-2); Eosinophils Absolute Auto 0.1 X10*3/uL (0.0-0.4); Eosinophils Percent Auto 0.8 % (0-4); Hematocrit 41.9 % (37.0-47.0); Hemoglobin 14.3 g/dl (12.0-16.0); Imm Gran Abs Auto 0.05 X10*3/uL (0.00-0.03); Imm Gran Pct Auto 0.4 % (0.0-0.4); Lymphocytes Absolute Auto 3.7 X10*3/uL (1.2-4.9); Lymphocytes Percent Auto 29.1 % (20-40); MANUAL DIFF FLAG NO; Mean Corpuscular HGB Conc 34.1 g/dl (31.0-35.0); Mean Corpuscular Hemoglobin 29.7 pg (27.0-33.0); Mean Corpuscular Volume 86.9 fL (80.0-98.0); Mean Platelet Volume 9.4 fL (9.4-12.3); Monocytes Absolute Auto 0.8 X10*3/uL (0.1-1.2); Monocytes Percent Auto 6.5 % (2-11); Platelet Count 350 X10*3/uL (160-400); Red Blood Count 4.82 X10*6/uL (4.20-5.50); Red Cell Distribution Width 15.1 % (11.0-16.0); White Blood Count 12.7 X10*3/uL (4.8-10.8)
[2024-09-10] MEDS: Magnesium Sulfate/H2O 2 GM/50 ML PIGGYBACK IV (01:41)
[2024-09-10] MEDS: methylPREDNISolone Sod Succ 125 MG/2 ML VIAL IVPUSH (01:41)
[2024-09-10 01:45] LABS: Venous Blood Gas Refer to POC result
[2024-09-10 01:47] LABS: VBG Base Excess 1.8 mmol/L; VBG HCO3 22 mmol/L (22-26); VBG pCO2 25 mmHg; VBG pH 7.55 (7.32-7.43); VBG pO2 51 mmHg
[2024-09-10 01:56] LABS: Alanine Aminotransferase 21 U/L (0-31); Albumin Level 4.4 g/dL (3.5-5.0); Alkaline Phosphatase 50 U/L (39-117); Anion Gap 23 (12-20); Aspartate Amino Transferase 32 U/L (5-31); Bilirubin Total 0.4 mg/dL (0.0-1.0); Blood Urea Nitrogen 22 mg/dL (9-16); Calcium 10.1 mg/dL (8.4-10.2); Carbon Dioxide 18 mmol/L (22-29); Chloride 102 mmol/L (96-108); Creatinine Clr Calc Pharmacy 31.5; Estimated Glomerular Filt Rate 37; Glucose Random 143 mg/dL (60-115); Potassium 3.2 mmol/L (3.3-5.1); Sodium 140 mmol/L (135-145); Total Protein 8.2 g/dL (6.5-8.0)
[2024-09-10 01:57] LABS: Lactic Acid 3.2 mmol/L (0.5-2.0)
[2024-09-10 02:01] LABS: B Type Natriuretic Peptide 65 pg/mL (<100)
[2024-09-10 02:02] LABS: Troponin-I High Sensitivity 7.8 ng/L (<3.5-17.0)
[2024-09-10] MEDS: LORazepam 2 MG/ML VIAL 1 MG IVPUSH (02:34)
[2024-09-10] MEDS: Morphine Sulfate 4 MG/ML CARTRIDGE IVPUSH (02:34)
--- NOTE | 2024-09-10 03:20 | PC.NURSE ---
late entry pt biba from home reporting increasing SOB x 3 days, worsening 2 hours [employer]EC[employer]GE[employer]. EMS placed Pt on cpap, duoneb given. Pt anxious, reports substernal CP. on arrival pt is anxious and flailing in bed reporting difficulty breathing. sats 100% on RA RT placed patient on high flow for comfort as patient is tachypneic up to 30s-40s. MD to bedside for eval. 2x iv obtained 20g bilat forearms. pt medicated per dec for respiratory. lung sounds cta. suggestion to MD for ?ativan. labs and ekg obtained. at 215 patient trying to get oob yelling she feels sob and grasping chest. MD called to bedside. no rhythm change noted on monitor. sats 100% on highflow. per MD order pt medicated per dec. pt stating need to urinate, purewick provided. pt is now calm/resting in bed, appears drowsy. had single episode of desat to low 70% pt arousable to tactile stimuli and highflow noted to be disconnected. on highflow now 100%. awaiting repeat troponin. call hernandez within reach.
[2024-09-10 03:37] LABS: Reflex Lactate? Lactic Acid Added
[2024-09-10 04:01] LABS: ~Lactic Acid-LAB USE ONLY 1.7 mmol/L (0.5-2.0)
[2024-09-10 04:08] LABS: Troponin-I High Sensitivity 8.3 ng/L (<3.5-17.0)
[2024-09-10 05:30] LABS: Influenza A PCR NEGATIVE (Negative); Influenza B PCR NEGATIVE (Negative); Resp Syncy Virus RNA Qual PCR NEGATIVE (Negative); SARS COV2 PCR INHOUSE NEGATIVE (Negative)
[2024-09-10] MEDS: Azithromycin 500 MG TABLET PO (06:11)
--- NOTE | 2024-09-10 06:16 | PC.NURSE ---
pt is axox4 ambulating with steady gait states she feels better. vitals as documented. resp even and unlabored. lung sounds cta. pt verbalizes understanding d/c education and is in wr waiting for daughter to pick her up.
== END 2024-09-10 06:20 | disposition home or self-care (01) ==
PROVIDERS: Emergency Provider Internal Medicine
DX: J20.9 Acute bronchitis, unspecified (principal); J44.1 Chronic obstructive pulmonary disease with (acute) exacerbation; R06.02 Shortness of breath; I44.0 Atrioventricular block, first degree; R07.89 Other chest pain; Z79.899 Other long term (current) drug therapy; Z03.818 Encounter for observation for suspected exposure to other biological agents ruled out
CPT/HCPCS: 0241U; 36415; 71045; 80053; 82803; 83605; 83880; 84484; 85025; 87040; 93005; 94640; 96365; 96375; 99285; J2060; J2270; J2405; J2919; J3475

== ENCOUNTER → 2024-09-10 01:27 | Outpatient (BNV) | payer MEDICARE, MEDICAID, SELFPAY | PROVIDERS: Emergency Provider Internal Medicine; Visit Provider Internal Medicine Cardiovascular Disease | DX: I44.0 Atrioventricular block, first degree (principal) | CPT/HCPCS: 93010 ==

== ENCOUNTER 2024-09-18 14:34 | Outpatient (AMB) | payer MEDICARE, MEDICAID, SELFPAY ==
--- NOTE | 2024-09-18 15:08 | A.OFFVIS_ITS ---
Vital Signs 09/18/24 15:09 Height 5 ft 2 in Weight 132 lb BMI 24.1 BP 102/68 Blood Pressure Location Lt brachial Position Sitting Pulse 70 Pulse Source Pulse Oximeter Pulse Oximetry (%) 99 Oxygen Delivery Method Room Air Intake Visit Reasons: sleep apnea Intake Note: pt is here post HH, for pneumonia, and is still short of breath, she does have phelgm in chest. Supervisor Of Research Required: No Allergies aspirin [ASA] Allergy (Intermediate, Verified 09/18/24 15:30) ITCHY, HOT, AND HEADACHE calcium Allergy (Intermediate, Verified 09/18/24 15:30) Vomiting Penicillins Allergy (Intermediate, Verified 09/18/24 15:30) RASH tofacitinib [Xeljanz] Allergy (Intermediate, Verified 09/18/24 15:30) chest pain, headaches sulfasalazine Allergy (Unknown, Verified 09/18/24 15:30) unknown Medication List - Last Reconciled 09/18/24 by Radha Whitfield MD albuterol sulfate 90 mcg/actuation (ProAir HFA) 2 puffs PO Q6H PRN alcohol swabs (Alcohol Prep Pads) USE DIRECTED SIX TIMES DAILY allopurinol 200 mg (2 x 100 mg) PO QPM 90 days aripiprazole (Abilify) 10 mg PO .every 2 days artifi.tears(hypromellose)(PF) 0.3% 1 drp ophthalmic (eye) Q4-6H PRN atorvastatin 20 mg PO DAILY blood sugar diagnostic (FreeStyle Lite Strips) As directed blood-glucose meter (FreeStyle [place] Lite kit) As directed cane As directed docusate sodium (Colace) 100 mg PO BID furosemide 40 mg PO .every 2 days gabapentin 900 mg (3 x 300 mg) PO BEDTIME 90 days Humira(CF) Pen (adalimumab) 40 mg (0.4 mL) subcut Q2W 90 days NS hydrocodone-acetaminophen 5-325 mg 1 tab PO Q6H PRN irbesartan 75 mg PO DAILY levothyroxine 75 mcg PO DAILY melatonin 10 mg PO BEDTIME PRN metformin ER 1,000 mg (2 x 500 mg) PO BID metoprolol tartrate 25 mg PO BID naloxone 4 mg/actuation (Narcan) 1 spray intranasal Q2M omeprazole magnesium (Prilosec OTC) 20 mg PO DAILY pen needle, diabetic (Pentips) USE 1 DAILY WITH VICTOZA polyethylene glycol 3350 (Miralax) 17 grams PO DAILY prednisone 5 mg PO DAILY 90 days semaglutide (Ozempic) 1 mg (0.75 mL) subcut QWEEK sennosides (senna) 8.6 mg PO DAILY zolpidem (Ambien) 5 mg PO BEDTIME PRN Do you need a note to return to daycare/school/sports/work: No HPI HPI sleep apnea: Details: CHERIE , 63 YEARS OLD, CROATIAN SPEAKING FEMALE WHO IS HERE WITH HER SON TODAY, WHO IS THE CORPORATION OFFICER, COMES TO SEE ME AFTER ALMOST 1 YEAR. SHE DOES HAVE MILD CHRONIC ASTHMA, AND HAS TO USE ALBUTEROL INHALER( VENTOLIN ) Q 6 HOURS P.R.N.. WHICH SHE USES ONLY ONCE IN A WHILE. .SHE HAS OF A NORMAL WEIGHT BUT HAS ROUND FACE, AND SHE HAS A CONFIRMED CASE OF OBSTRUCTIVE SLEEP APNEA. SHE HAS BEEN USING CPAP REGULARLY FOR LONG TIME, HER MACHINE DOES NOT TRANSMIT DATA FOR RECORDING THE COMPLIANCE. SHE CLAIMS THAT SHE IS USING HER CPAP REGULARLY EVERY NIGHT. HOWEVER MOST OF HER COMPLAINT TODAY IS PAIN IN THE NECK, RIGHT SHOULDER AREA, AND GOING UP TO THE OCCIPITAL AREA OF THE SKULL, ESPECIALLY AT NIGHT. AND SHE IS THINKING THAT THIS IS DUE TO THE STRAP OF HER FACIAL MASK, CAUSING THE PAIN. SO SHE HAS NOT USE THE CPAP FOR A FEW DAYS, HOWEVER SHE ALSO CLAIMS THAT WITHOUT THE CPAP SHE DOES NOT SLEEP WELL.. IT SHOULD BE NOTED THAT VINCENT MURILLO HAS MULTIPLE MEDICAL ISSUES AND ESPECIALLY, GENERALIZED ARTHRITIS. IN ADDITION TO EXTENSIVE MEDICAL REGIMEN FOR ARTHRITIS, ANXIETY, DIABETES MELLITUS, HYPERTENSION SHE IS ALSO ON HUMIRA INJECTIONS . THE PAIN THAT SHE DESCRIBES IN THE NECK AND GOING UP TO THE SCALP BY IS DEFINITELY RELATED TO DEGENERATIVE ARTHRITIS OF THEC-SPINE * 09/18 ERNA COMES TODAY FOR. HER ROUTINE FOLLOW-UP LAST WEEK SEEN IN THE EMERGENCY ROOM WITH ACUTE BRONCHITIS. CHEST X-RAY WAS NEGATIVE FOR PNEUMONIA. SHE WAS TOLD THAT SHE HAS LOT OF MUCUS, SHE IMPROVED WITH ALBUTEROL USED IN THE NEBULIZER . SHE COMES IN TODAY AND COMPLAINS THAT SHE STILL HAS INTERMITTENT BOUTS OF COUGH WITH LOT OF MUCUS THAT SHE CAN NOT CLEAR UP. SHE TRIES TO USE ALBUTEROL INHALER BUT CAN NOT GET MUCH RELIEF WITH THAT. SHE WANTS TO HAVE A NEBULIZER ON HAND. YING IS A KNOWN CASE OF OBSTRUCTIVE SLEEP APNEA, SHE USES CPAP REGULARLY AT NIGHT AND SLEEPS 3-4 HOURS EVERY NIGHT, HER CPAP DEVICE DOES NOT TRANSMIT THE DATA FOR COMPLIANCE. [facility] Medical History On allopurinol therapy Gout Breast calcification, right Long-term use of immunosuppressant medication Positive PHYLLIS (antinuclear antibody) Fibromyalgia History of primary hyperparathyroidism Osteopenia Dyslipidemia Hypothyroidism LONA on CPAP Bronchial asthma Epidermal inclusion cyst Morbid obesity Gout of right foot PHYLLIS positive Seronegative rheumatoid arthritis Diabetes type 2, uncontrolled Surgical History History of surgery Hx of excision of mass History of kidney surgery S/P breast lumpectomy H/O parathyroidectomy Hx of cholecystectomy H/O tubal ligation Family History Daughter History of breast cancer Father Cirrhosis Diabetes Arthritis Mother Arthritis Sister Diabetes Social History Alcohol intake: never Patient Tobacco Use Status: Former Tobacco user Tobacco use type: Cigarette Substance Use Type: Marijuana Female Reproductive History Menstrual Age of Menarche: 11 Review of Systems Const All systems reviewed & are unremarkable except as noted in HPI and below Eyes Reports no additional complaints ENT Reports nasal congestion (Mild off and on) Card Denies chest pain, Denies irregular heart rhythm and Denies leg edema Resp Reports as per HPI GI Reports no additional complaints Reports no additional complaints Musc Reports back pain, Reports arthralgias and Reports other (Being treated for rheumatoid arthritis) Skin/Breast Reports system reviewed and no additional complaints, except as documented Neuro Reports no additional complaints Psych Reports anxiety Endo Reports no additional complaints Gamal/Lymph Reports no additional complaints Physical Exam Vital Signs: Last Vital Signs Pulse 70 09/18/24 15:09 BP 102/68 09/18/24 15:09 Pulse Ox 99 09/18/24 15:09 Oxygen Delivery Method Room Air 09/18/24 15:09 BMI result Body Mass Index 24.1 Const General: comfortable, no acute distress, alert and awake Orientation/consciousness: patient oriented x3 HEENT Head: Yes normal to inspection General nose exam: No nasal polyps present and No nasal discharge present Face and sinus: Yes sinuses nontender Mouth: oropharynx normal Throat: Yes posterior oropharynx normal Eyes General: appearance normal, both eyes and all related structures Neck Neck: Yes normal visual inspection, Yes no lymphadenopathy, Yes trachea midline and Yes no JVD Thyroid: Thyroid normal Chest Chest palpation & inspection: normal inspection of the chest, normal palpation of entire chest wall and no tenderness Resp Other: Percussion note resonant, breath sounds are equal on both sides. No wheezes rhonchi or crepitations are heard. She does get bouts of cough during deep inspiration. Cardio Palpation: normal PMI Rate: regular rate Rhythm: regular rhythm Heart sounds: no gallops and no murmurs Peripheral pulses: Peripheral pulses 2+ throughout GI Palpation (GI): Soft to palpation, nontender, No hepatosplenomegaly present and no masses Auscultation: normal bowel sounds Back/Spine/Pelvis Thoracic/Lumbar Spine: thoracic and lumbar spine normal to inspection Skin General skin exam: no rashes or lesions noted Neuro General: patient oriented x3 and no focal motor deficits Cranial nerves: Yes CN's II-XII intact bilaterally Extrem General: Yes normal to inspection, Yes no clubbing, cyanosis or edema and Yes no calf tenderness Psych Appearance: grossly normal and well kempt Speech and movement: Normal speech and movement present Assessment & Plan Assessment & Plan (1) LONA on CPAP: Comment: PATIENT BEING TREATED FOR OBSTRUCTIVE SLEEP APNEA FOR THE PAST MANY YEARS. The CPAP device is old and has failed to transmit any data. So we do not have electronic , record of her compliance. The patient tells that she is using every night regularly and sleeping for 3-4 hours at a time. Code(s): G47.33 - Obstructive sleep apnea (adult) (pediatric); Z99.89 - Dependence on other enabling machines and devices Category: Medical Plan: Advised to continue using the CPAP regularly every night. (2) Bronchial asthma: Comment: SHE HAS CHRONIC, INTERMITTENT BRONCHIAL ASTHMA. LAST WEEK TREATED FOR ACUTE BRONCHITIS COMPLICATING BRONCHIAL ASTHMA, AND SHE GO T BETTER AFTER USING THE ALBUTEROL IN THE NEBULIZER. Code(s): J45.909 - Unspecified asthma, uncomplicated Category: Medical Plan: PATIENT IS PROVIDED A NEBULIZER DEVICE FROM THE OFFICE, AND SHOWN HOW TO USE IT. ALBUTEROL SOLUTION 1.5 MG IN 3 CC USE IN THE NEBULIZER Q 4-6 HOURS P.R.N. FOR ACUTE BOUTS OF COUGH AND MUCUS. Medications: New albuterol sulfate 1.25 mg (3 mL) inhalation Q4-6H 30 days PRN 90 mL 3RF shortness of breath or wheezing Coding Level of Care Code Est Pt Level 4 (85675) Diagnoses LONA on CPAP G47.33; Z99.89 Bronchial asthma J45.909
[2024-09-18 15:09] VITALS: BP 102/68; PULSE 70; O2SAT 99; BMI 24.1
== END 2024-09-18 16:00 | disposition home or self-care (01) ==
PROVIDERS: PCP General Practice; Visit Provider Internal Medicine
DX: G47.33 Obstructive sleep apnea (adult) (pediatric) (principal); Z99.89 Dependence on other enabling machines and devices; J45.909 Unspecified asthma, uncomplicated
CPT/HCPCS: 99214

== ENCOUNTER → 2024-09-18 14:34 | Outpatient (BNVA) | payer MEDICARE, MEDICAID, SELFPAY | PROVIDERS: Visit Provider Internal Medicine | DX: J45.909 Unspecified asthma, uncomplicated (principal); G47.33 Obstructive sleep apnea (adult) (pediatric); Z99.89 Dependence on other enabling machines and devices | CPT/HCPCS: 99212 ==

== ENCOUNTER 2024-10-03 11:20 | Outpatient (REF) | payer MEDICARE, MEDICAID, SELFPAY ==
[2024-10-03 13:59] LABS: Anion Gap 14 (12-20); Blood Urea Nitrogen 15 mg/dL (9-16); Calcium 9.4 mg/dL (8.4-10.2); Carbon Dioxide 26 mmol/L (22-29); Chloride 102 mmol/L (96-108); Estimated Glomerular Filt Rate 37; Glucose Random 136 mg/dL (60-115); Potassium 3.7 mmol/L (3.3-5.1); Sodium 138 mmol/L (135-145)
[2024-10-03 14:13] LABS: Creatinine Urine 77.46 mg/dL; Microalbum/Creatinine Ratio Ur 30.9 ug/mg cr (<30)
== END 2024-10-03 11:21 | disposition home or self-care (01) ==
LOC: HO.HHCL 11:20
PROVIDERS: Visit Provider General Practice
DX: E11.22 Type 2 diabetes mellitus with diabetic chronic kidney disease (principal); N18.2 Chronic kidney disease, stage 2 (mild)
CPT/HCPCS: 36415; 80048; 82043; 82570

== ENCOUNTER 2024-10-10 09:19 | Outpatient (AMB) | payer MEDICARE, MEDICAID, SELFPAY ==
--- NOTE | 2024-10-10 09:20 | MHC.OFFVIS ---
Vital Signs 10/10/24 09:21 Height 5 ft 2 in Weight 131 lb BMI 24.0 BP 129/74 Blood Pressure Location Lt brachial Position Sitting Pulse 79 Intake Visit Reasons: lipoma of the back Intake Note: This patient presents for lipoma of back. Pt c/o; reports painful mass right back. Biochemical Development Engineer Required: Yes Biochemical Development Engineer Language: Professor In Family Studies Services: Biochemical Development Engineer Offered & Declined Accompanied by: Son Allergies aspirin [ASA] Allergy (Intermediate, Verified 10/10/24 09:31) ITCHY, HOT, AND HEADACHE calcium Allergy (Intermediate, Verified 10/10/24 09:31) Vomiting Penicillins Allergy (Intermediate, Verified 10/10/24 09:31) RASH tofacitinib [Xeljanz] Allergy (Intermediate, Verified 10/10/24 09:31) chest pain, headaches sulfasalazine Allergy (Unknown, Verified 10/10/24 09:31) unknown Medication List - Last Reconciled 10/10/24 by Agustín Real MD albuterol sulfate 90 mcg/actuation (ProAir HFA) 2 puffs PO Q6H PRN albuterol sulfate 1.25 mg (3 mL) inhalation Q4-6H PRN 30 days alcohol swabs (Alcohol Prep Pads) USE DIRECTED SIX TIMES DAILY allopurinol 200 mg (2 x 100 mg) PO QPM 90 days aripiprazole (Abilify) 10 mg PO .every 2 days artifi.tears(hypromellose)(PF) 0.3% 1 drp ophthalmic (eye) Q4-6H PRN atorvastatin 20 mg PO DAILY blood sugar diagnostic (FreeStyle Lite Strips) As directed blood-glucose meter (FreeStyle [place] Lite kit) As directed cane As directed docusate sodium (Colace) 100 mg PO BID furosemide 40 mg PO .every 2 days gabapentin 900 mg (3 x 300 mg) PO BEDTIME 90 days Humira(CF) Pen (adalimumab) 40 mg (0.4 mL) subcut Q2W 90 days NS hydrocodone-acetaminophen 5-325 mg 1 tab PO Q6H PRN irbesartan 75 mg PO DAILY levothyroxine 75 mcg PO DAILY melatonin 10 mg PO BEDTIME PRN metformin ER 1,000 mg (2 x 500 mg) PO BID metoprolol tartrate 25 mg PO BID naloxone 4 mg/actuation (Narcan) 1 spray intranasal Q2M omeprazole magnesium (Prilosec OTC) 20 mg PO DAILY pen needle, diabetic (Pentips Pen Needle) USE 1 DAILY WITH VICTOZA polyethylene glycol 3350 (Miralax) 17 grams PO DAILY prednisone 5 mg PO DAILY 90 days semaglutide (Ozempic) 1 mg (0.75 mL) subcut QWEEK sennosides (senna) 8.6 mg PO DAILY zolpidem (Ambien) 5 mg PO BEDTIME PRN HPI HPI lipoma of the back: Details: [age] year old female here for a lipoma of the right chest wall. She states that she has had this for several months and this has been bothering her with pain on the area. She wants this removed. [facility] Medical History (Updated 10/10/24 @ 09:59 by Agustín Real MD) Lipoma On allopurinol therapy Gout Breast calcification, right Long-term use of immunosuppressant medication Positive PHYLLIS (antinuclear antibody) Fibromyalgia History of primary hyperparathyroidism Osteopenia Dyslipidemia Hypothyroidism LONA on CPAP Bronchial asthma Epidermal inclusion cyst Morbid obesity Gout of right foot PHYLLIS positive Seronegative rheumatoid arthritis Diabetes type 2, uncontrolled Surgical History History of surgery Hx of excision of mass History of kidney surgery S/P breast lumpectomy H/O parathyroidectomy Hx of cholecystectomy H/O tubal ligation Family History Daughter History of breast cancer Father Cirrhosis Diabetes Arthritis Mother Arthritis Sister Diabetes Social History Alcohol intake: never Patient Tobacco Use Status: Former Tobacco user Tobacco use type: Cigarette Substance Use Type: Marijuana Female Reproductive History Menstrual Age of Menarche: 11 Review of Systems Const Denies chills and Denies fever(s) Card Denies chest pain, Denies dyspnea and Denies dyspnea on exertion Resp Denies cough, Denies dyspnea and Denies dyspnea on exertion GI Denies hematochezia and Denies change in bowel habits Denies hematuria Musc Denies back pain and Denies limited range of motion Neuro Denies focal weakness and Denies convulsions Psych Denies depression and Denies mood swings Physical Exam Vital Signs: Last Vital Signs Pulse 79 10/10/24 09:21 BP 129/74 10/10/24 09:21 BMI result Body Mass Index 24.0 Const General: comfortable and no acute distress Orientation/consciousness: patient oriented x3 Neck Neck: Yes no lymphadenopathy Chest Other: Right chest wall the flank area - lipomatous mass, about 2.5 cm, mobile, nontender Resp Auscultation: clear to auscultation bilaterally Cardio Rhythm: regular rhythm GI Palpation (GI): Soft to palpation, nontender and no guarding Neuro General: patient oriented x3 Assessment & Plan Assessment & Plan (1) Lipoma: Code(s): D17.9 - Benign lipomatous neoplasm, unspecified Category: Medical Plan: She has a lipoma in the right chest wall laterally as described above. She wants this removed. I explained the technique of excision under local anesthesia. I reviewed the risks including but not limited to bleeding, infections, postop pain, poor healing, as well as the benefits and alternatives. She understands and wants to proceed This will be done in the office under local anesthesia on her next visit. Coding Level of Care Code Est Pt Level 3 (47239) Diagnoses Lipoma D17.9
[2024-10-10 09:21] VITALS: BP 129/74; PULSE 79; BMI 24.0
== END 2024-10-10 09:40 | disposition home or self-care (01) ==
PROVIDERS: Visit Provider Surgery
DX: D17.9 Benign lipomatous neoplasm, unspecified (principal)
CPT/HCPCS: 99213

== ENCOUNTER → 2024-10-10 09:19 | Outpatient (BNVA) | payer MEDICARE, MEDICAID, SELFPAY | PROVIDERS: Visit Provider Surgery | DX: D17.1 Benign lipomatous neoplasm of skin and subcutaneous tissue of trunk (principal) | CPT/HCPCS: 99212 ==

== ENCOUNTER 2025-01-01 06:29 | Outpatient (REF) | payer MEDICARE, MEDICAID, SELFPAY ==
--- OUTSIDE RECORDS SUMMARY | 2025-01-01 06:33 | XMS_ITS | Encounter Summary ---
Author Organization inv[facility] Address [address] [place] [address] Care Team Providers Care Validation Architect Name Role Phone Sue Alicia MD Primary Care Provider Reason for Visit * Reason Onset Date Comments Med Refill 11/21/2023 Encounter Details Date Type Department Care Team ([facility] st Contact Info) Description 11/21/2023 Refill [facility] MED[facility]INE [address] [place], [place] [phone] Sue Alicia MD [address] [place], [place] [phone] Chronic low back pain, unspecified back pain laterality, unspecified whether sciatica present; Rash and nonspecific skin eruption Social History Tobacco Use Types Packs/Day Years Used Date Smoking Tobacco: Former Cigarettes Smokeless Tobacco: Never Alcohol Use Standard Drinks/Week Comments Never 0 (1 standard drink = 0.6 oz pur e alcohol) Depression Answer Date Recorded Patient Health Questionnaire-9 Score 0 02/25/2023 Housing Stability Answer Date Recorded What is your housing situation today? I do not have housing (Staying with others, in a hotel, in a senior care, living outside on the street, on a beach, in a car, or in a park 08/09/[address] you li ve. Do you have problems with any of the following? None of the above 08/09/2023 Food Insecurity Answer Date Recorded Within the past 12 months, y ou worried that your food would run out before you got money to buy more: Sometimes True 2022 Within the past 12 months,th e food you bought just didn't last and you didn't have enough money to get more: Sometimes True 08/21/2023 Transportation Answer Date Recorded In the past 12 months, has l ack of transportation kept you from medical appts, meetings, work or from getting things needed for daily living? No 08/21/2023 Utilities Answer Date Recorded In the past 12 months, has t he electric, gas, oil or water company threatened to shut off services in your home? No 08/21/2023 Depression Answer Date Recorded Patient Health Questionnaire-2 Score 0 04/20/2023 Comments Unknown Sex and Gender Information Value Date Recorded Sex Assigned at Female 08/30/2022 10:14 AM EDT Legal Sex Female 10:14 AM EDT Gender Identity Female 08/30/2022 10:14 AM EDT Sexual Orientation Straight 08/30/2022 10 :14 AM EDT documented as of this encounter Miscellaneous Notes * Telephone Encounter - Sue Alicia MD - 11/22/2023 11:18 AM EST Need to see her in person to evaluate rash, and whether prednisone is effective * Telephone Encounter - Harriett Nowak - 11/21/2023 1:30 PM EST TC from pt requesting medication refill. Medications needing refill : cyclobenzaprine (Flexeril) 10 MG tablet To be sent to: [facility] - [place], [place] - [address] [place] [address] documented in this encounter Plan of Treatment Upcoming Encounters Date Type Department Care Team (Late st Contact Info) Description 01/04/2025 11:00 AM EST Office Visit [facility] [address] [place] [phone] Sue Alicia MD [address] [place] [address] 01/31/2025 9:00 AM EDT Clinical Support [address] [phone] Cookie Alcaraz RN documented as of this encounter Visit Diagnoses Diagnosis Chronic low back pain, unspecified back pain laterality, unspecified whether sciatica present Rash and nonspecific skin eruption Rash and other nonspecific skin eruption documented in this encounter Additional Health Concerns Assessment Noted Time PHQ-9 Depression Total Score: 0 02/26/20 23 9:24 AM EDT documented as of this encounter Care Teams Validation Architect Relationship Specialty Start Date End Date Sue Alicia MD [address] [place] [address] PCP - General Family Medicine 08/09/23 documented as of this encounter
--- OUTSIDE RECORDS SUMMARY | 2025-01-01 06:33 | XMS_ITS | Encounter Summary ---
Author Organization [employer] Address [address] [place] [address] Care Team Providers Care Certified Pharmacy Technician Name Role Phone Sue Alicia MD Primary Care Provider Encounter Details Date Type Department Care Team ([facility] st Contact Info) Description 11/22/2023 Orders Only [facility] MEDICINE [address] [place], [place] [phone] Sue Alicia MD [address] [place], [place] [phone] Social History Tobacco Use Types Packs/Day Years [...] with others, in a hotel, in a penitentiary, living outside on the street, on a [...] AM EDT documented as of this encounter Plan of Treatment Upcoming Encounters Date Type Department Care Team (Late st Contact Info) Description 01/04/2025 11:00 AM EST Office Visit [facility] MED[facility]INE [address] [place] [phone] Sue Alicia MD [address] [place] [phone] 01/31/2025 9:00 AM EDT Clinical Support [facility] [address] [place] [phone] Cookie Alcaraz RN documented as of this encounter Visit Diagnoses Not on filedocumented in this encounter Additional Health Concerns Assessment Noted Time PHQ-9 Depression Total Score: 0 02/26/20 23 9:24 AM EDT documented as of this encounter Care Teams Certified Pharmacy Technician Relationship Specialty Start Date End Date Sue Alicia MD [address] [place] [phone] PCP - General Family Medicine 08/09/23 documented as of this encounter
--- OUTSIDE RECORDS SUMMARY | 2025-01-01 06:33 | XMS_ITS | Encounter Summary ---
Author Organization [employer] Address [address] [facility] [address] [facility] [address] [place] [address] Care Team Providers Care Digital Imager Name Role Phone Sue Alicia MD Primary Care Provider Reason for Visit * Reason Onset Date Comments Durable Medical Equipment 02/10/2024 Walker and Wheelchair Encounter Details Date Type Department Care Team ([facility] st Contact Info) Description 02/10/2024 Telephone [facility] MEDICINE [address] [place], [place] [phone] Sue Alicia MD [address] [place], [place] [phone] Durable Medical Equipment (Walker and Wheelchair) Social History Tobacco Use Types Packs/Day Years Used Date Smoking Tobacco: Former Cigarettes Smokeless Tobacco: Never Alcohol Use Standard Drinks/Week Comments Never 0 (1 standard drink = 0.6 oz pur e alcohol) Alcohol Answer Date Recorded Frequency of Alcohol Consumption Not on file 02/08/2024 Average Number of Drinks Not on file 024 Frequency of Binge Drinking Not on file 01/29 Score 0 02/08/2024 Depression Answer Date Recorded Patient Health Questionnaire-9 Score 19 02/08/2024 Patient Health Questionnaire-9 Score 19 02/08/2024 Last PHQ-9: Questionnaire Data Not on file 0 02/08/2024 Housing Stability Answer Date Recorded What is your housing situation today? I have george winters 02/08/[address] you li ve. Do you have problems with any of the following? Inadequate heat 02/08/2024 Food Insecurity Answer Date Recorded Within the past 12 months, y ou worried that your food would run out before you got money to buy more: Never True 02/08/2024 Within the past 12 months,th e food you bought just didn't last and you didn't have enough money to get more: Never True 07/2024 Transportation Answer Date Recorded In the past [...] Answer Date Recorded Patient Health Questionnaire-2 Score 5 02/08/2024 Comments Unknown Sex and Gender Information Value Date Recorded Sex Assigned at Female 08/30/2022 10:14 AM EDT Legal Sex Female 10:14 AM EDT Gender Identity Female 08/30/2022 10:14 AM EDT Sexual Orientation Straight 08/30/2022 10 :14 AM EDT documented as of this encounter Miscellaneous Notes * Telephone Encounter - Annika Kaur - 02/10/2024 2:36 PM EDT Orders for DME was placed on PCP desk for signature. Once signed will fax to [facility] and scan into chart under media. * Telephone Encounter - Annika Kaur - 02/10/2024 2:34 PM EDT ----- Message from Sue Alicia MD sent at 02/08/2024 9:12 PM EDT ----- Please generate script for rollator walker with seat and collapsible folding wheelchair documented in this encounter Plan of Treatment Upcoming Encounters Date Type Department Care Team (Late st Contact Info) Description 01/04/2025 11:00 AM EST Office Visit [facility] MEDICINE [address] [place] [phone] Sue Alicia MD [address] [place] [address] 01/31/2025 9:00 AM EDT Clinical Support [facility] MEDICINE [address] [place] [address] Cookie Alcaraz RN documented as of this encounter Visit Diagnoses Not on filedocumented in this encounter Additional Health Concerns Assessment Noted Time PHQ-9 Depression Total Score: 19 024 2:37 PM EDT documented as of this encounter Care Teams Digital Imager Relationship Specialty Start Date End Date Sue Alicia MD [address] [place] [phone] PCP - General Family Medicine 08/09/23 documented as of this encounter
--- OUTSIDE RECORDS SUMMARY | 2025-01-01 06:33 | XMS_ITS | Encounter Summary ---
[facility] Address [address] [facility] 7t [place] [address] Care Team Providers Care Population Health Coach Name Role Phone Sue Alicia MD Primary Care Provider [phone] Reason for Referral * Consultation (Routine) - Closed Specialty Diagnoses / Procedures Referred By Saroj bauman Referred To Contact Vascular Surgery Diagnoses Pain due to varicose veins of both lower extremities Sue Alicia MD [address] [place] [address] Phone: tel: fax: [facility] [address] [place], [place] Phone: tel: fax: Referral ID Status Reason Start Date Expiration Date V isits Requested Visits Authorized [id number] Closed Specialty Services Required 04/17/2024 04/17/2025 6 6 * Consultation (Routine) - Pending Review Specialty Diagnoses / Procedures Referred By Saroj bauman Referred To Contact Pulmonary Disease Diagnoses Mild intermittent asthma without complication Obstructive sleep apnea syndrome Sue Alicia MD [address] [place] [address] Phone: tel: fax: [facility] [address] [place], [place] Phone: tel: fax: Referral ID Status Reason Start Date Expiration Date Visits Requested Visits Authorized [id number] Pending Review Specialty Services Required 04/19/2024 04/19/2025 6 6 Encounter Details Date Type Department Care Team (Late st Contact Info) Description 04/03/2024 Orders Only [facility] MED[facility]INE [address] [place] [address] Sue Alicia MD [address] [place], [place] [phone] Mild intermittent asthma without complication (Primary Dx); Obstructive sleep apnea syndrome; Pain due to varicose veins of both lower extremities Social History Tobacco Use Types Packs/Day Years Used Date Smoking Tobacco: Former Smokeless Tobacco: Never Alcohol Use Standard Drinks/Week [...] Patient Health Questionnaire-2 Score 5 02/08/2024 Comments No Sex and Gender Information Value Date Recorded Sex Assigned at Female 08/30/2022 10:14 AM EDT Legal Sex Female 10:14 AM EDT Gender Identity Female 08/30/2022 10:14 AM EDT Sexual Orientation Straight 08/30/2022 10 :14 AM EDT documented as of this encounter Plan of Treatment Upcoming Encounters Date Type Department Care Team (Late st Contact Info) Description 01/04/2025 11:00 AM EST Office Visit [address] [address] Sue Alicia MD [address] [place] [address] 01/31/2025 9:00 AM EDT Clinical Support [address] [address] Cookie Alcaraz RN Scheduled Referrals Name Type Priority Associated Diagnoses Orde r Schedule Referral to Pulmonology Outpatient Referral Routine Mild intermittent asthma without complication Obstructive sleep apnea syndrome Expected: 04/03/2024 (Approximate), Expires: 04/03/2025 Referral to Vascular Surgery Outpatient Referral Routine Pain due to varicose veins of both lower extremities Expected: 04/17/2024 (Approximate), Expires: 04/17/2025 documented as of this encounter Visit Diagnoses Diagnosis Mild intermittent asthma without complication- Primary Obstructive sleep apnea syndrome Obstructive sleep apnea (adult) (pediatric) Pain due to varicose veins of both lower extremities documented in this encounter Additional Health Concerns Assessment Noted Time PHQ-9 Depression Total Score: 19 024 2:37 PM EDT documented as of this encounter Care Teams Population Health Coach Relationship Specialty Start Date End Date Sue Alicia MD [address] [place] [address] PCP - General Family Medicine 08/09/23 documented as of this encounter
--- OUTSIDE RECORDS SUMMARY | 2025-01-01 06:33 | XMS_ITS | Encounter Summary ---
Author Organization [employer] Address [address] [facility] [address] 7t [place] [address] Care Team Providers Care Real Estate Specialist Name Role Phone Sue Alicia MD Primary Care Provider [phone] Encounter Details Date Type Department Care Team ([facility] st Contact Info) Description 12/31/2024 Telephone [facility] MED[facility]INE 230 [place], [place] [phone] [place] Social History Tobacco Use Types Packs/Day Years [...] encounter Miscellaneous Notes * Telephone Encounter - Maureen St [place] - 12/31/2024 3:12 PM EST I called pt to book for a pap pt stated she was refer out for a vaginal hernia and going to see herpcp so they can take it out would let us know for further appointments. documented in this encounter Plan of Treatment Upcoming Encounters Date Type Department Care Team (Late st Contact Info) Description 01/04/2025 11:00 AM EST Office Visit [address] [address] Sue Alicia MD [address] [place] [address] 01/31/2025 9:00 AM EDT Clinical Support [address] [address] Cookie Alcaraz, ABHIJIT documented as of this encounter Visit Diagnoses Not on filedocumented in this encounter Additional Health Concerns Assessment Noted Time PHQ-9 Depression Total Score: 19 024 2:37 PM EDT documented as of this encounter Care Teams Real Estate Specialist Relationship Specialty Start Date End Date Sue Alicia MD [address] [place] [address] PCP - General Family Medicine 08/09/23 documented as of this encounter
--- OUTSIDE RECORDS SUMMARY | 2025-01-01 06:33 | XMS_ITS | Encounter Summary ---
Author Organization [facility] [employer] [facility] Address [address] 7t [place] [address] Care Team Providers Care Special Effects Artist Name Role Phone Sue Alicia MD Primary Care Provider [phone] Reason for Visit * Reason Onset Date Comments Call Back Request 02/20/2024 Encounter Details Date Type Department Care Team ([facility] Contact Info) Description 02/20/2024 Telephone [facility] MEDICINE [address] [place], [place] [phone] Sue Alicia MD [address] [place], [place] [phone] Call Back Request Social History Tobacco Use Types Packs/Day Years [...] encounter Miscellaneous Notes * Telephone Encounter - Garrett Peña - 02/20/2024 10:37 AM EDT Tc from the patients daughter requesting a call back would like to discuss about the patient no further information was provided documented in this encounter Plan of Treatment Upcoming Encounters Date Type Department Care Team (Late st Contact Info) Description 01/04/2025 11:00 AM EST Office Visit [address] [address] Sue Alicia MD [address] [place] [address] 01/31/2025 9:00 AM EDT Clinical Support [address] [address] Cookie Alcaraz RN documented as of this encounter Visit Diagnoses Not on filedocumented in this encounter Additional Health Concerns Assessment Noted Time PHQ-9 Depression Total Score: 19 024 2:37 PM EDT documented as of this encounter Care Teams Special Effects Artist Relationship Specialty Start Date End Date Sue Alicia MD [address] [place] [phone] PCP - General Family Medicine 08/09/23 documented as of this encounter
--- OUTSIDE RECORDS SUMMARY | 2025-01-01 06:33 | XMS_ITS | Encounter Summary ---
Author Organization [employer] [facility] Address [address] [facility] 7t [place] [address] Care Team Providers Care Color Stripper Name Role Phone Sue Alicia MD Primary Care Provider [phone] Reason for Visit * Reason Onset Date Comments Med Refill 08/29/2023 Encounter Details Date Type Department Care Team ([facility] Contact Info) Description 08/29/2023 Telephone [facility] MEDICINE [address] [place], [place] [phone] Sue Alicia MD 230 [place], [place] [phone] Med Refill Social History Tobacco Use Types Packs/Day Years [...] with others, in a hotel, in a intermediate, living outside on the street, on a [...] encounter Miscellaneous Notes * Telephone Encounter - Reny Palumbo LPN - 08/29/2023 2:13 PM EDT Flexeril was sent on 08/26/23 ad Flovent is prescribed by Pulm. * Telephone Encounter - Jamal Linder - 08/29/2023 2:07 PM EDT Tc from pt requesting med refill on fluticasone (Flovent HFA) 220 MCG/ACT inhaler cyclobenzaprine (Flexeril) 10 MG tablet Please sent to [facility] [place], [place] - [address] [place] [address] documented in this encounter Plan of Treatment Upcoming Encounters Date Type Department Care Team (Late st Contact Info) Description 01/04/2025 11:00 AM EST Office Visit [address] [address] Sue Alicia MD [address] [place] [address] 01/31/2025 9:00 AM EDT Clinical Support [address] [address] Cookie Alcaraz, RN documented as of this encounter Visit Diagnoses Not on filedocumented in this encounter Additional Health Concerns Assessment Noted Time PHQ-9 Depression Total Score: 0 02/26/20 23 9:24 AM EDT documented as of this encounter Care Teams Color Stripper Relationship Specialty Start Date End Date Sue Alicia MD [address] [place] [address] PCP - General Family Medicine 08/09/23 documented as of this encounter
--- OUTSIDE RECORDS SUMMARY | 2025-01-01 06:33 | XMS_ITS | Clinical Summary ---
Author Organization [facility] Address [address] [facility] [address] [place] [address] Phone Care Team Providers Care Inside Outside Sales Representative Name Role Phone [place], Gideon Primary Care Provider Unavaila ble Allergies Active Allergy Reactions Criticality Noted Date Comments Aspirin 12/30/2020 Doxycycline 03/15/2022 Other reaction(s): pt. unsure Iodixanol Rash Low 03/15/2022 Penicillins 12/30/2020 Medications Cyclobenzaprine HCl (FLEXERIL PO) Take 1 tablet by mouth 1 (one) time each day Active ProAir HFA 108 (90 Base) MCG/ACT inhaler INHALE 2 PUFFS EVERY 6 HOURS NEEDED FOR SHORTNESS OF BREATH OR FOR WHEEZING 12/11/19 21 Active atorvastatin (LIPITOR) 20 MG tablet Take 20 mg by mouth 1 (one) time each day 12/05/19 21 Active levothyroxine (SYNTHROID, LEVOTHROID) 50 MCG tablet Take 1 tablet by mouth 1 (one) time each day Active metFORMIN XR (GLUCOPHAGE-XR) 500 MG 24 hr tablet Take 2 tablets by mouth 2 (two) times a day 12/11/19 21 Active Victoza 18 MG/3ML injection INJECT 1.8 MG SUBCUTANEOUSLY EVERY DAY 12/05/19 21 Active omeprazole (PriLOSEC) [address] capsule Take 1 capsule by mouth 1 (one) time each day Active HYDROcodone-acet aminophen (NORCO) 5-325 MG per tablet Take 1 tablet by mouth if needed Active insulin lispro (HumaLOG) 100 UNIT/ML injection Active irbesartan (AVAPRO) 75 MG tablet TAKE 1 TABLET BY MOUTH EVERY MORNING 90 tablet 1 11/01/19 25 Active furosemide (LASIX) 40 MG tablet TAKE 1 TABLET BY MOUTH TWICE DAILY IN THE MORNING AND IN THE EVENING 180 tablet 1 11/01/19 25 Active furosemide (LASIX) 40 MG tabletIndication s:Stage 3 chronic kidney disease, not otherwise specified (HCC),Hypertensi on,Type 2 diabetes mellitus with diabetic chronic kidney disease (HCC),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> (HCC),Benign essential hypertension Take 1 tablet (40 mg total) by mouth every morning and evening 180 tablet 1 11/01/19 25 Active irbesartan (AVAPRO) 75 MG tabletIndication s:Stage 3 chronic kidney disease, not otherwise specified (HCC),Hypertensi on,Type 2 diabetes mellitus with diabetic chronic kidney disease (HCC),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> (HCC),Benign essential hypertension Take 1 tablet (75 mg total) by mouth 1 (one) time each day 90 tablet 1 11/01/19 25 Active Active Problems Problem Noted Date Diagnosed Date Stage 3b chronic kidney disease 12/10/2024 Acute kidney failure 11/03/2023 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 03/15/2022 Benign essential hypertension 12/30/2020 Chronic kidney disease stage 2 12/30/2020 Edema 12/30/2020 Morbid obesity 12/30/2020 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 mellitus 0 12/30/2020 Renal stone 12/30/2020 Presence of systemic lupus erythematosus (SLE) i vaibitor 12/30/2020 Encounters Date Type Department Care Team Description 12/10/2024 3:45 PM EST Office Visit [facility] [address] [place] [address] Ben Cummins MD Systemic lupus erythematosus-associated antiphospholipid syndrome (HCC) (Primary Dx); 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> (HCC); Stage 3b chronic kidney disease (HCC) 11/01/2024 Refill [facility] [address] [place] [address] Vilma Real [place] Stage 3 chronic kidney disease, not otherwise specified (HCC) (Primary Dx); Hypertension; Type 2 diabetes mellitus with diabetic chronic kidney disease (HCC); 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> (HCC); Benign essential hypertension 11/01/2024 Refill [facility] [address] [place] [phone] Ben Cummins MD from Last 3 Months Immunizations Name Administration Dates Next Due Influenza Split 07/25/2012 Influenza, Quadrivalent, Pre servative Free 07/23/2021,09/19/2020,07/18/2017,07/25 Influenza, Quadrivalent, Wit h Preservative 08/02/2018,07/23/2016 Influenza, Trivalent, Adjuvanted 08/20/2019 Milk A Deal SARS-COV-2 01/21/2021 Pfizer SARS-COV-2 09/23/2021 Pneumococcal Conjugate 13-Valent 08/16/2018 Pneumococcal Conjugate Pcv 20 04/20/2023 Pneumococcal Polysaccharide 10/04/2017 Shingrix 03/26/2022 Td 05/22/2007 Tdap 10/04/2017 Family History Medical History Relation Comments Hypertension Father Hypertension Mother Stroke Mother Kidney disease Sibling 1 brother Hypertension Sibling 2 Heart disease Sibling 3 Relation Status Comments Father Mother Sibling 1 Sibling 2 Sibling 3 Social History Tobacco Use Types Packs/Day Years Used Date Smoking Tobacco: Never Smokeless Tobacco: Never Alcohol Use Standard Drinks/Week Comments No 0 (1 standard drink = 0.6 oz pur e alcohol) Comments Unknown Sex and Gender Information Value Date Recorded Sex Assigned at Not on file Legal Sex Female 5:13 PM EST Gender Identity Not on file Sexual Orientation Not on file Last Filed Vital Signs Vital Sign Reading Time Taken Comments Blood Pressure 108/70 12/10/2024 3:34 PM EST Pulse 76 12/10/2024 3:34 PM EST Temperature - - Respiratory Rate - - Oxygen Saturation 99% 12/10/2024 3:34 PM EST Inhaled Oxygen Concentration - - Weight 62 kg (136 lb 9.6 oz) 12/10/2024 3:34 PM EST Height 157.5 cm (5' 2 ) 11/19/2019 12:00 PM EST Body Mass Index 24.98 11/19/2019 12:00 PM EST Plan of Treatment Upcoming Encounters Date Type Department Care Team (Late st Contact Info) Description 02/28/2025 4:00 PM EDT Office Visit [facility] [address] [place], [place] [phone] Ben Cummins MD [address] [facility] [address] [place] [address] Health Maintenance Due Date Last Done Comments Breast Cancer Screening 1959 Colorectal Cancer Screening: Annual FOBT 2008 Colorectal Cancer Screening: Colonoscopy 2008 Colorectal Cancer Screening: Sigmoidoscopy 2008 Diabetes: Ophthalmology Exam 11/30/2020 Diabetes: Pedal Pulse Checked 11/30/2020 Diabetes: Sensory Foot Exam 11/30/2020 Diabetes: Visual Foot Exam 11/30/2020 Influenza Vaccine (#1) 2024 , 09/19/2020, 08/20/2019, Additional history exists Diabetes: Hemoglobin A1C 09/04/2024 024, 02/08/2024, 10/26/2023, Additional history exists Pneumococcal Vaccine: 65+ Years Completed 04/20/2023, 08/16/2018, 10/04/2017 Pneumococcal Vaccine: Pediatrics (0 to 5 Years) and At-Risk Patients (6 to 64 Years) Completed 04/20/2023, 08/16/2018, 10/04/2017 Hepatitis B Vaccine Aged Out No longe r eligible based on patient's age to complete this topic Procedures Procedure Name Priority Date/Time Associated Diagnosis Comments HEMOGLOBIN A1C Routine 10/26/2023 9:17 AM EST Chronic kidney disease stage 2 from Last 3 Months or Most Recently Relevant to Health Maintenance Results * Hemoglobin A1c (10/26/2023 9:17 AM EST) Hemoglobin A1C 5.6 <6.0 % [facility] Comment: ?Hemoglobin A1C Reference Range ? Adults: ??4.8 - 6.0 % ? Non diabetic: ??< 6.0 % ? Goal: ??< 7.0 % Additional Action Suggested: ??> 8.0 % Note: ??Hemoglobin A1c results are invalid for patients ? with abnormal amounts of HbF. ??Blood transfusions ? may impact the HbA1c concentration in the patient ? sample. Estimated Average Glucose 114 mg/dL [facility] Comment: eAG = Estimated average glucose which is %A1C expressed as average glucose, using the formula of the [id number] Average Glucose study (ADAG), Diabetes Care, Vol.31,#8, Aug. 2008 Blood (Blood, Venous) 10/26/2023 9:17 AM EST 10/26/2023 9:17 AM EST us Ben Cummins MD LAB BLOOD ORDERABLES Final Re sult [place] from Last 3 Months or Most Recently Relevant to Health Maintenance Insurance MEDICAID OR MEDICAID OR MEDICARE Care Teams Inside Outside Sales Representative Relationship Specialty Start Date End Date Gideon Mccormack PCP - General Internal Medicine 12/30/20
--- OUTSIDE RECORDS SUMMARY | 2025-01-01 06:33 | XMS_ITS | Encounter Summary ---
Author Organization [facility] Address [address] [facility] 7t [place] [address] Care Team Providers Care Svp Digital Sales Food & Cooking Name Role Phone Sue Alicia MD Primary Care Provider [phone] Reason for Visit * Reason Onset Date Comments Med Refill 05/09/2024 Encounter Details Date Type Department Care Team ([facility] st Contact Info) Description 05/09/2024 Telephone [facility] MEDICINE 230 [place], [place] [phone] Sue Alicia MD [address] [place], [place] [phone] Med Refill Social History Tobacco Use Types [...] Telephone Encounter - Reny Palumbo LPN - 05/09/2024 9:54 AM EDT Script was sent on 05/04/24 to [facility]. * Telephone Encounter - Jamal Linder - 05/09/2024 9:46 AM EDT TC from pt requesting medication refill. Medications needing refill : cyclobenzaprine (Flexeril) 5 MG tablet To be sent to: [facility] documented in this encounter Plan of Treatment Upcoming Encounters Date Type Department Care Team (Late st Contact Info) Description 01/04/2025 11:00 AM EST Office Visit [facility] MEDICINE [address] [place] [address] Sue Alicia MD [address] [place] [address] 01/31/2025 9:00 AM EDT Clinical Support [facility] [address] [place] [address] [place] [address] Cookie Alcaraz, RN documented as of this encounter Visit Diagnoses Not on filedocumented in this encounter Additional Health Concerns Assessment Noted Time PHQ-9 Depression Total Score: 19 024 2:37 PM EDT documented as of this encounter Care Teams Svp Digital Sales Food & Cooking Relationship Specialty Start Date End Date Sue Alicia MD [address] [place] [address] PCP - General Family Medicine 08/09/23 documented as of this encounter
--- OUTSIDE RECORDS SUMMARY | 2025-01-01 06:33 | XMS_ITS | Encounter Summary ---
Author Organization [employer] Address [address] [facility] 7t [place] [address] Care Team Providers Care Assistant Boiler Operator Name Role Phone Sue Alicia MD Primary Care Provider [phone] Reason for Visit * Reason Comments Med Refill Encounter Details Date Type Department Care Team ([facility] st Contact Info) Description 12/11/2024 Refill [facility] MEDICINE 230 [place], [place] [phone] Sue Alicia MD 230 [place], [place] [phone] Chronic low back pain, unspecified back pain laterality, unspecified whether sciatica present Social History Tobacco Use Types Packs/Day Years [...] Description 01/04/2025 11:00 AM EST Office Visit [address] [address] Sue Alicia MD [address] [place] [phone] 01/31/2025 9:00 AM EDT Clinical Support [address] [address] Cookie Alcaraz, ABHIJIT documented as of this encounter Visit Diagnoses Diagnosis Chronic low back pain, unspecified back pain laterality, unspecified whether sciatica present documented in this encounter Additional Health Concerns Assessment Noted Time PHQ-9 Depression Total Score: 19 024 2:37 PM EDT documented as of this encounter Care Teams Assistant Boiler Operator Relationship Specialty Start Date End Date Sue Alicia MD [address] [place] [address] PCP - General Family Medicine 08/09/23 documented as of this encounter
--- OUTSIDE RECORDS SUMMARY | 2025-01-01 06:33 | XMS_ITS | Encounter Summary ---
Author Organization [employer] [facility] Address [address] [facility] 7t [place] [address] Care Team Providers Care Knobber Name Role Phone Sue Alicia MD Primary Care Provider [phone] Reason for Visit * Reason Onset Date Comments Letter for Housing 02/06/2024 I called to g et clarification on a request a letter for housing. The patient stated that she is requesting to be moved to a two bedroom apartment, because her current apartment is too small. She stated that she has a scooter, a wheelchair, and a shower chair. She also needs a hospital bed, but her provider has not ordered it yet, because it will not fit into her bedroom at this time. Encounter Details Date Type Department Care Team (Late st Contact Info) Description 02/06/2024 Telephone [facility] MEDICINE 230 [place], [place] [phone] Sue Alicia MD 230 [place], [place] [phone] Letter for Housing (I called to get clarification on a request a letter for housing. The patient stated that she is requesting to be moved to a two bedroom apartment, because her current apartment is too small. She stated that she has a scooter, a wheelchair, and a shower chair. She also needs a hospital bed, but her provider has not ordered it yet, because it will not fit into her bedroom at this time.) Social History Tobacco Use Types Packs/Day Years [...] encounter Miscellaneous Notes * Telephone Encounter - Aleida Mcclure MA - 02/06/2024 1:53 PM EDT I called to get clarification on a request for a letter for housing. The patient stated that she isrequesting to be moved to a two bedroom apartment, because her current apartment is too small. She stated that she has a scooter, a wheelchair, and a shower chair. She also needs a hospital bed, but her provider has not ordered it yet, because it will not fit into her bedroom at this time. documented in this encounter Plan of Treatment Upcoming Encounters Date Type Department Care Team (Late st Contact Info) Description 01/04/2025 11:00 AM EST Office Visit [facility] [place] [address] [place] [address] 01/31/2025 9:00 AM EDT Clinical Support [facility] [place] [address] Cookie Alcaraz RN documented as of this encounter Visit Diagnoses Not on filedocumented in this encounter Additional Health Concerns Assessment Noted Time PHQ-9 Depression Total Score: 0 02/26/20 9:24 AM EDT documented as of this encounter Care Teams Knobber Relationship Specialty Start Date End Date Sue Alicia MD [facility] [place] [address] PCP - General Family Medicine 08/09/23 documented as of this encounter
--- OUTSIDE RECORDS SUMMARY | 2025-01-01 06:33 | XMS_ITS | Encounter Summary ---
Author Organization [facility] Address [address] [facility] 7t [place] [address] Care Team Providers Care Student Services Counselor Name Role Phone Sue Alicia MD Primary Care Provider Reason for Visit * Reason Onset Date Comments Med Refill 02/17/2024 Encounter Details Date Type Department Care Team ([facility] Contact Info) Description 02/17/2024 Telephone [facility] [address] [place], [place] [phone] Sue Alicia MD [address] [place], [place] [phone] Med Refill Social History Tobacco Use Types [...] * Telephone Encounter - Garrett Peña - 02/17/2024 1:57 PM EDT TC from pt requesting medication refill. Medications needing refill : cyclobenzaprine (Flexeril) 5 MG tablet To be sent to: [facility] [place], [place] - [address] [place] [address] documented in this encounter Plan of Treatment Upcoming Encounters Date Type Department Care Team ([facility] st Contact Info) Description 01/04/2025 11:00 AM EST Office Visit [facility] [address] [place] [phone] Sue Alicia MD [address] [place] [phone] 01/31/2025 9:00 AM EDT Clinical Support [facility] [address] [place] [phone] Cookie Alcaraz, RN documented as of this encounter Visit Diagnoses Not on filedocumented in this encounter Additional Health Concerns Assessment Noted Time PHQ-9 Depression Total Score: 19 024 2:37 PM EDT documented as of this encounter Care Teams Student Services Counselor Relationship Specialty Start Date End Date Sue Alicia MD [address] [place] [address] PCP - General Family Medicine 08/09/23 documented as of this encounter
--- OUTSIDE RECORDS SUMMARY | 2025-01-01 06:33 | XMS_ITS | Encounter Summary ---
Author Organization [email or web address] Address [address] [place] [address] Care Team Providers Care Bottle Blower Name Role Phone Sue Alicia MD Primary Care Provider [phone] Encounter Details Date Type Department Care Team ([facility] st Contact Info) Description 04/06/2024 Telephone [facility] [address] [place], [place] [phone] Sue Alicia MD [address] [place] [address] Social History Tobacco Use Types Packs/Day Years [...] 01/04/2025 11:00 AM EST Office Visit [address] [address] Sue Alicia MD [address] [place] [phone] 01/31/2025 9:00 AM EDT Clinical Support [address] [address] Cookie Alcaraz, RN documented as of this encounter Visit Diagnoses Not on filedocumented in this encounter Additional Health Concerns Assessment Noted Time PHQ-9 Depression Total Score: 19 024 2:37 PM EDT documented as of this encounter Care Teams Bottle Blower Relationship Specialty Start Date End Date Sue Alicia MD [address] [place] [phone] PCP - General Family Medicine 08/09/23 documented as of this encounter
--- OUTSIDE RECORDS SUMMARY | 2025-01-01 06:33 | XMS_ITS | Encounter Summary ---
Author Organization [employer] Address [address] [facility] 7t [place] [address] Care Team Providers Care Unclaimed Property Manager Name Role Phone Sue Alicia MD Primary Care Provider [phone] Encounter Details Date Type Department Care Team (Latest Contact Info) Description 12/19/2024 Travel Social History Tobacco Use Types Packs/Day Years [...] Description 01/04/2025 11:00 AM EST Office Visit [address] [address] Sue Alicia MD [address] [place] [phone] 01/31/2025 9:00 AM EDT Clinical Support [address] [address] Cookie Alcaraz, RN documented as of this encounter Visit Diagnoses Not on filedocumented in this encounter Additional Health Concerns Assessment Noted Time PHQ-9 Depression Total Score: 19 024 2:37 PM EDT documented as of this encounter Care Teams Unclaimed Property Manager Relationship Specialty Start Date End Date Sue Alicia MD [address] [place] [phone] PCP - General Family Medicine 08/09/23 documented as of this encounter
--- OUTSIDE RECORDS SUMMARY | 2025-01-01 06:33 | XMS_ITS | Encounter Summary ---
Author Organization [facility] Address [address] [place] [phone] Phone Care Team Providers Care Roller Inspector And Mender Name Role Phone Gideon Mccormack Primary Care Provider Unavaila ble Reason for Visit * Reason Comments Presence of systemic lupus erythematosus (SLE) inhibitor Encounter Details Date Type Department Care Team (Latest Contact Info) Description 12/10/2024 3:45 PM EST [facility] Visit [facility] [address] [place] [address] [place] [address] [phone] Ben Cummins MD [address] [phone] Systemic lupus erythematosus-associated antiphospholipid syndrome (HCC) (Primary Dx); 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> (HCC); Stage 3b chronic kidney disease (HCC) Social History Tobacco Use Types Packs/Day Years Used Date Smoking Tobacco: Never Smokeless Tobacco: Never Alcohol Use Standard Drinks/Week Comments No 0 (1 standard drink = 0.6 oz pur e alcohol) Comments Unknown Sex and Gender Information Value Date Recorded Sex Assigned at Not on file Legal Sex Female 5:13 PM EST Gender Identity Not on file Sexual Orientation Not on file documented as of this encounter Last Filed Vital Signs Vital Sign [place] Time Taken Comments Blood Pressure 108/70 12/10/2024 3:34 PM EST Pulse 76 12/10/2024 3:34 PM EST Temperature - - Respiratory Rate - - Oxygen Saturation 99% 12/10/2024 3:34 PM EST Inhaled Oxygen Concentration - - Weight 62 kg (136 lb 9.6 oz) 12/10/2024 3:34 PM EST Height - - Body Mass Index 24.98 11/19/2019 12:00 PM EST documented in this encounter Patient Instructions * Patient Instructions* Ben Cummins MD - 12/10/2024 3:45 PM EST No NSAIDS - Do not take non-steroidal anti-inflammatory medications (NSAIDS) such as Ibuprofen (Advil, Motrin, etc), Naproxen (Aleve, etc), Celecoxib (Celebrex) or Ketoprofen. These common arthritis medications can cause permanent kidney damage or worsen your kidney damage. For mild occasional pain, Acetaminophen (Tylenol, etc) is safe for your kidneys. Sodium and Your CKD Diet: How to Spice Up Your Cooking What is sodium? Sodium is a mineral found naturally in foods and is the major part of table salt. What are the effects of eating too much sodium? When your kidneys are not healthy, extra sodium and fluid build up in your body. This can cause swollen ankles, puffiness, a rise in blood pressure, shortness of breath, and/or fluid around your heart and lungs. See the following table for suggestions on how to reduce sodium in your diet. LIMIT THE [AMOUNT OF... FOOD TO LIMIT BECAUSE OF THEIR HIGH SODIUM CONTENT ACCEPTABLE SUBSTITUTES SALT & SALT SEASONINGS Table salt Seasoning salt Garlic salt Onion salt Celery salt Lemon pepper Lite salt Meat tenderizer Bouillon cubes Flavor enhancers Fresh garlic, fresh onion, garlic powder, onion powder, black [pepper, lemon juice, low-sodium/salt-free seasoning blends, vinegar SALTY FOODS Barbecue sauce Steak sauce Soy sauce Teriaky sauce Oyster sauce Salted Snacks such as Crackers Potato chips Shelby chips Pretzels Tortilla chips Nuts Popcorn Taylor seeds Homemade or low- sodium sauces and salad dressings; Vinegar, dry mustard, unsalted popcorn, pretzels, tortilla or corn chips Cured Foods Ham Salt pork Chew Sauerkraut Pickles, pickle relish Lox & Doherty Olives Fresh beef, veal, pork, poultry, fish, eggs [place] [employer] Hot Dogs Cold cuts, deli meats Pastrami Sausage Corned beef Spam Low-salt deli meats PROCESSED FOODS Buttermilk Cheese Canned: Soups Tomato products Vegetable juices Canned vegetables Convenience Foods such as: TV Dinners Canned raviolis Leander Macaroni & Cheese Spaghetti Frozen prepared foods Fast foods Natural cheese (1-2 oz Per week) Homemade or prakash,1- sodium soups, canned food without added salt Homemade casseroles without added salt, made with fresh or raw vegetables, fresh meat, jose maria, pasta, or unsalted canned vegetables Some salt or sodium is needed for body water balance. But when your kidneys lose the ability to control sodium and water balance, you may experience the following: thirst fluid gain high blood pressure discomfort during dialysis By using less sodium in your diet, you can control these problems. Hints to keep your sodium intake down Cook with herbs and spices instead of salt. (Refer to Spice Up Your Cooking section for further suggestions.) Read food labels and choose those foods low in sodium. Avoid salt substitutes and specialty low-sodium foods made with salt substitutes because they are high in potassium. When eating out, ask for meat or fish without salt. Ask for gravy or sauce on the side; these may contain large amounts of salt and should be used in small amounts . Limit use of canned, processed and frozen foods. Some information about reading labels Understanding the terms: Sodium Free - Only a trivial amount of sodium per serving. Very Low Sodium - 35 mg or less per serving. Low Sodium - 140 mg or less per serving. Reduced Sodium - Foods in which the level of sodium is reduced by 25%. Light or Lite in Sodium - Foods in which the sodium is reduced by at least 50% . Simple rule of thumb : If salt is listed in the first five ingredients, the item is probably too high in sodium to use. All food labels now have milligrams (mg) of sodium listed. Follow these steps when reading the sodiwn information on the label: 1. Know how much sodium you are allowed each day. Remember that there are 1000 milligrams (mg) in 1gram. For [id number], if your diet prescription is 2 grams of sodium , your limit is 2000 milligrams per day. Consider the sodium value or other food to be eaten during the day. 2. Look at the package label. Check the serving size. Nutrition values are expressed per courtney g. How does this compare to your total daily allowance? If the sodium level is 500 mg or more per serving, the item is not a good choice. 3. Compare labels of similar products. Select the lowest sodium level for the same serving size. How to Spice Up Your Cooking Giving up salt does not mean giving up flavor. Learn to season your food with herbs and spices. Be creative and experiment for a new and exciting flavor. What kinds of spices and herbs should I use instead of salt to add flavor? Try the following spices with the foods listed. Allspice: Use with beef, fish, beets, cabbage, canots, peas, fruit. Basil: Use with beef, pork, most vegetables. Maverick Montezuma: Use with beef, pork, most vegetables. Geraldine: Use with beef, pork, green beans, cauliflower, cabbage, beets, asparagus, and in dips and marinades. Cardamom: Use with fruit and in baked goods. Cramer: Use with beef, chicken, pork, fish, green beans, carrots and in marinades. Dill: Use with beef, chicken, green beans, cabbage, carrots, peas and in dips. Adelina: Use with beef, chicken, pork, green beans, cauliflower and eggplant. Marjoram: Use with beef, chicken, pork, green beans, cauliflower and eggplant. Soumya: Use with chicken, pork, cauliflower, peas and in marinades. Thyme: Use with beef, chicken, pork, fish, green beans, beets and carrots. Luis Eduardo: Use with chicken, pork, eggplant and in dressing. Tarragon: Use with fish, chicken, asparagus, beets, cabbage, cauliflower and in marinades. Tips for cooking with herbs and spices Purchase spices and herbs in small amounts . When they sit on the shelf for years they lose their flavor. Use no more than ?? teaspoon of dried spice (?? of fresh) per pound of meat. Add ground spices to food about 15 minutes before the end of the cooking period. Add whole spices to food at least one hour before the end of the cooking period. Combine herbs with oil or butter, set for 30 minutes to bring out their flavor, then brush on foodswhile they cook, or brush meat with oil and sprinkle herbs one hour before coolcing. Crush dried herbs before adding to foods. Can I use salt substitutes? Caution! If you are told to limit potassium in your diet, be very cautious about using salt substitutes because most of them contain some form of potassium. Check with your doctor or dietitian beforeusing and salt substitute. [place] and create your own seasoning containing those spices that you like. If you would like to become a volunteer and find out more about what's happening where you live, contact your local [facility] Affiliate. Blood pressure monitoring education: Monitor home blood pressure values after sitting for 5 minutes with back and arm support. Keep a log. Bring your log and blood pressure cuff to your next visit. documented in this encounter Progress Notes * Ben Cummins MD - 12/10/2024 3:45 PM EST Images from the original note were not included. Patient Name: Nicky Lopez, Female Date of : 1960, 64 y.o. Date: 12/10/24 [] New Patient [x] Established Patient [] New Hospital Follow Up [] Established Hospital Follow Up [] Telemed Visit [] H&P Referring MD: No primary care provider on file. PCP: Gideon Mccormack Reason For Visit CKD 3, DM, HTN Nicky Lopez is a 64 y.o. female CKD 3 in setting of DM/HTN and SLE. Her renal funct has remianed very stable Has upcoming f/u with Rheum Her meds rtemain the same. She denies CP/SOB. No GH/dysuria. No kidney stone problems. Cont f/u with Rheum at [facility]. The following portions of the patient's chart were reviewed in this encounter and updated as appropriate: Allergies Meds Problems Med Hx Surg Hx Fam Hx Constitutional: Negative for chills and fever. Respiratory: Negative for cough and shortness of breath. Cardiovascular: Negative for chest pain, palpitations and leg swelling. Gastrointestinal: Negative for abdominal pain, nausea and vomiting. Genitourinary: Negative for dysuria, frequency, hematuria and urgency. Full 13 point review of systems unremarkable except as noted above. Past Medical History: Diagnosis Date Essential hypertension Lupus erythematosus Nephrolithiasis Primary hyperparathyroidism (HCC) Past Surgical History: Procedure Laterality Date GALLBLADDER SURGERY THYROIDECTOMY Social History Tobacco Use Smoking status: Never Smokeless tobacco: Never Substance Use Topics Alcohol use: No Family History Problem Relation Age of Onset Kidney disease Sibling brother Hypertension Sibling Hypertension Mother Stroke Mother Hypertension Father Heart disease Sibling Current Outpatient Medications Medication Sig Dispense Refill atorvastatin (LIPITOR) 20 MG tablet Take 20 mg by mouth 1 (one) time each day Cyclobenzaprine HCl (FLEXERIL PO) Take 1 tablet by mouth 1 (one) time each day furosemide (LASIX) 40 MG tablet TAKE 1 TABLET BY MOUTH TWICE DAILY IN THE MORNING AND IN THE EVENING 180 tablet 1 furosemide (LASIX) 40 MG tablet Take 1 tablet (40 mg total) by mouth every morning and evening 180 tablet 1 HYDROcodone-acetaminophen (NORCO) 5-325 MG per tablet Take 1 tablet by mouth if needed insulin lispro (HumaLOG) 100 UNIT/ML injection irbesartan (AVAPRO) 75 MG tablet TAKE 1 TABLET BY MOUTH EVERY MORNING 90 tablet 1 irbesartan (AVAPRO) 75 MG tablet Take 1 tablet (75 mg total) by mouth 1 (one) time each day 90 tablet 1 levothyroxine (SYNTHROID, LEVOTHROID) 50 MCG tablet Take 1 tablet by mouth 1 (one) time each day metFORMIN XR (GLUCOPHAGE-XR) 500 MG 24 hr tablet Take 2 tablets by mouth 2 (two) times a day omeprazole (PriLOSEC) [address] capsule Take 1 capsule by mouth 1 (one) time each day ProAir HFA 108 (90 Base) MCG/ACT inhaler INHALE 2 PUFFS EVERY 6 HOURS NEEDED FOR SHORTNESS OF BREATH OR FOR WHEEZING Victoza 18 MG/3ML injection INJECT 1.8 MG SUBCUTANEOUSLY EVERY DAY No current facility-administered medications for this visit. Allergies Allergen Reactions Aspirin Doxycycline Other reaction(s): pt. unsure Penicillins Iodixanol Rash Objective: Vitals: 12/10/24 1534 BP: 108/70 BP Location: Right upper arm Patient Position: Sitting BP Cuff Size: Adult Pulse: 76 SpO2: 99% Weight: 136 lb 9.6 oz (62 kg) 122/70 Vitals reviewed. Constitutional: She appears well-developed. No distress. Cardiovascular: Normal rate, regular rhythm and normal heart sounds. She exhibits no edema. Pulmonary/Chest: Effort normal and breath sounds normal. No respiratory distress. Abdominal: Soft. There is no abdominal tenderness. No hernia. Skin: Skin is warm and dry. Psychiatric: She has a normal mood and affect. Her behavior is normal. No results found for: EGFRAFR No results found for: EGFRNAFR Chemistry Lab Units 04/11/24 1535 10/26/23 0917 CREATININE mg/dL 1.54* 1.79* BUN mg/dL 28* 32* POTASSIUM mmol/L 4.8 4.4 SODIUM mmol/L 139 140 CO2 mmol/L 31* 32* CHLORIDE mmol/L 99 100 ALBUMIN g/dL -- 3.6 HEMOGLOBIN A1C % -- 5.6 BILIRUBIN TOTAL mg/dL -- 0.3 AST U/L -- 16 ALT U/L -- 12 Bone Mineral Lab Units 04/11/24 1535 10/26/23 0917 CALCIUM mg/dL 9.9 9.3 ALKALINE PHOSPHATASE U/L -- 38* Urine Lab Units 04/11/24 1620 10/26/23 0949 PROT/CREAT RATIO UR TNP -- ALB MG/G CREAT UR ug/mg cr TNP 7.1 Urine Lab Units 04/11/24 1620 PH U 8.0 COLOR U Yellow GLUCOSE U MG/DL mg/dL Negative WBC UR HPF /HPF 0-5 RBC UR HPF /HPF 0-2 Labs Lab Units 04/11/24 1535 C3 COMPLEMENT mg/dL 78* C4 COMPLEMENT mg/dL 18 PLAN: Assessment & Plan 1. Systemic lupus erythematosus-associated antiphospholipid syndrome (HCC) 2. 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> (HCC) 3. Stage 3b chronic kidney disease (HCC) 64 Y/O F CKD 3 DM HTN H/O SLE 1. CKD 3: c/w DM/HTYN marichuy;l dis but may need to get kidney Bx to r/o SLE Nephritis--will get repeat labs aand reassess 2. MSK: dx'd with SLE ..no apparent kidney involvement yet 3. Primary Hyperparathyroidism: S/P ptx 4. DM 5. Obesity 6. Albuminuiria: low grade Disc: to optimize renal protection she is on ARB and we stress the BS and BP contro and avoidamce of NSAIDs. She may also be a good candidate for SGLT2i For both renal and CV protection but will holdand get repeat labs fiorst Need f/u with Rheum and start [place] PLAN: repeat labs as oredered; possible kidney Bx; needs f/u with her Rheum doc;; no other changes in meds for rnow; ; cont to track UAC and track renal func; avoid NSAIODs; encourage WT loss and lowsalt Orders Placed This Encounter PTH, Intact Renal Function Panel Urinalysis with microscopic Urine Albumin / Creatinine Ratio Urine Culture Protein, Total, Random Urine w/Creatinine (Protein/Creat Ratio) Vitamin D 25 Hydroxy CBC Phosphorus Magnesium Albumin Calcium Return in about 2 months (around 02/07/2025). Ben Cummins MD documented in this encounter Plan of Treatment Upcoming Encounters Date Type Department Care Team (Late st Contact Info) Description 02/28/2025 4:00 PM EDT Office Visit [facility] [address] [place] [phone] Ben Cummins MD [address] [facility] [address] [place] [address] Scheduled Orders Name Type Priority Associated Diagnoses Orde r Schedule PTH, Intact Lab Routine Systemic lupus erythematosus-associated antiphospholipid syndrome (HCC) 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> (HCC) Stage 3b chronic kidney disease (HCC) Expected: 12/10/2024, Expires: 01/07/2026 Renal Function Panel Lab Routine Systemic lupus erythematosus-associated antiphospholipid syndrome (HCC) 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> (HCC) Stage 3b chronic kidney disease (HCC) Expected: 12/10/2024, Expires: 01/07/2026 Urinalysis with microscopic Lab Routine Systemic lupus erythematosus-associated antiphospholipid syndrome (HCC) 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> (HCC) Stage 3b chronic kidney disease (HCC) Expected: 12/10/2024, Expires: 01/07/2026 Urine Albumin / Creatinine Ratio Lab Routine Systemic lupus erythematosus-associated antiphospholipid syndrome (HCC) 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> (HCC) Stage 3b chronic kidney disease (HCC) Expected: 12/10/2024, Expires: 01/07/2026 Urine Culture Lab Routine Systemic lupus erythematosus-associated antiphospholipid syndrome (HCC) 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> (HCC) Stage 3b chronic kidney disease (HCC) Expected: 12/10/2024, Expires: 01/07/2026 Protein, Total, Random Urine w/Creatinine (Protein/Creat Ratio) Lab Routine Systemic lupus erythematosus-associated antiphospholipid syndrome (HCC) 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> (HCC) Stage 3b chronic kidney disease (HCC) Expected: 12/10/2024, Expires: 01/07/2026 Vitamin D 25 Hydroxy Lab Routine Systemic lupus erythematosus-associated antiphospholipid syndrome (HCC) 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> (HCC) Stage 3b chronic kidney disease (HCC) Expected: 12/10/2024, Expires: 01/07/2026 CBC Lab Routine Systemic lupus erythematosus-associated antiphospholipid syndrome (HCC) 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> (HCC) Stage 3b chronic kidney disease (HCC) Expected: 12/10/2024, Expires: 01/07/2026 Phosphorus Lab Routine Systemic lupus erythematosus-associated antiphospholipid syndrome (HCC) 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> (HCC) Stage 3b chronic kidney disease (HCC) Expected: 12/10/2024, Expires: 01/07/2026 Magnesium Lab Routine Systemic lupus erythematosus-associated antiphospholipid syndrome (HCC) 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> (HCC) Stage 3b chronic kidney disease (HCC) Expected: 12/10/2024, Expires: 01/07/2026 Albumin Lab Routine Systemic lupus erythematosus-associated antiphospholipid syndrome (HCC) 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> (HCC) Stage 3b chronic kidney disease (HCC) Expected: 12/10/2024, Expires: 01/07/2026 Calcium Lab Routine Systemic lupus erythematosus-associated antiphospholipid syndrome (HCC) 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> (HCC) Stage 3b chronic kidney disease (HCC) Expected: 12/10/2024, Expires: 01/07/2026 documented as of this encounter Visit Diagnoses Diagnosis Systemic lupus erythematosus-associated antiphospholipid syndrome (HCC)- Primary 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> (HCC) Stage 3b chronic kidney disease (HCC) documented in this encounter Care Teams Roller Inspector And Mender Relationship Specialty Start Date End Date Gideon Mccormack PCP - General Internal Medicine 12/30/20 documented as of this encounter
--- OUTSIDE RECORDS SUMMARY | 2025-01-01 06:33 | XMS_ITS | Encounter Summary ---
Author Organization [facility] Address [address] [facility] 7t [place] [address] Care Team Providers Care Tile Shader Name Role Phone Sue Alicia MD Primary Care Provider [phone] Reason for Visit * Reason Onset Date Comments Referral 04/02/2024 Encounter Details Date Type Department Care Team ([facility] Contact Info) Description 04/02/2024 Telephone [facility] [address] [place], [place] [phone] Sue Alicia MD [address] [place], [place] [phone] Referral Social History Tobacco Use Types Packs/Day Years [...] encounter Miscellaneous Notes * Telephone Encounter - Harriett Nowak - 04/02/2024 1:39 PM EDT TC from pt daughter requesting new referral : DATE: n/a TIME: n/a Address: [address] [place] [address] Visits: all year long 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 [facility] [place] Type of Specialist: certifier Provider : Rhea Locke MD Address: [address] [place] [address] Fax #: [phone] documented in this encounter Plan of Treatment Upcoming Encounters Date Type Department Care Team ([facility] st Contact Info) Description 01/04/2025 11:00 AM EST Office Visit [facility] [address] [place] [phone] Sue Alicia MD [address] [place] [phone] 01/31/2025 9:00 AM EDT Clinical Support [facility] [address] [place] [phone] Cookie Alcaraz RN documented as of this encounter Visit Diagnoses Not on filedocumented in this encounter Additional Health Concerns Assessment Noted Time PHQ-9 Depression Total Score: 19 024 2:37 PM EDT documented as of this encounter Care Teams Tile Shader Relationship Specialty Start Date End Date Sue Alicia MD [address] [place] [address] PCP - General Family Medicine 08/09/23 documented as of this encounter
--- OUTSIDE RECORDS SUMMARY | 2025-01-01 06:33 | XMS_ITS | Encounter Summary ---
Author Organization [employer] Address [address] [facility] [address] [place] [address] Care Team Providers Care Merchandiser Seasonal Name Role Phone Sue Alicia MD Primary Care Provider [phone] Reason for Visit * Reason Comments Med Refill Encounter Details Date Type Department Care Team ([facility] st Contact Info) Description 04/11/2024 Refill [facility] [address] [place], [place] [phone] Sue Alicia MD [address] [place], [place] [phone] Shortness of breath Social History Tobacco Use Types Packs/Day Years [...] Visit [facility]INE [address] [place] [phone] Sue Alicia MD [address] [place] [phone] 01/31/2025 9:00 AM EDT Clinical Support [address] [address] Cookie Alcaraz, ABHIJIT documented as of this encounter Visit Diagnoses Diagnosis Shortness of breath documented in this encounter Additional Health Concerns Assessment Noted Time PHQ-9 Depression Total Score: 19 024 2:37 PM EDT documented as of this encounter Care Teams Merchandiser Seasonal Relationship Specialty Start Date End Date Sue Alicia MD [address] [place] [phone] PCP - General Family Medicine 08/09/23 documented as of this encounter
--- OUTSIDE RECORDS SUMMARY | 2025-01-01 06:33 | XMS_ITS | Clinical Summary ---
Author Organization [facility] ity Address [address] [place] [address] Care Team Providers Care Lens Engraver Name Role Phone Unavailable Primary Care Provider Unavailabl e Social History Tobacco Use Types Packs/Day Years Used Date Smoking Tobacco: Never Assessed Comments Unknown Sex and Gender Information Value Date Recorded Sex Assigned at Not on file Legal Sex Female 9:05 AM EST Gender Identity Not on file Sexual Orientation Not on file Plan of Treatment Health Maintenance Due Date Last Done Comments Breast Cancer Screening 1959 DTaP,Tdap,and Td Vaccines (1 - Tdap) 1978 Cervical Cancer Screening: P ap Smear 1980 Pneumococcal Vaccine: 50+ Ye ars (1 of 1 - PCV) 2009 Zoster Vaccines (1 of 2) 2009 Colorectal Cancer Screening: Colonoscopy 06/26/2024 Depression Screening 06/26/2024 Hepatitis C Screening 06/26/2024 Osteoporosis Screening (Bone Density Screening) 06/26/2024 Social Influencers of Health Screening 06/26/2024 COVID-19 Vaccine ( - 2023-2 5 season) 2024 Influenza Vaccine (#1) 2024 Falls Risk Assessment 2024 RSV Immunization Patients 60 + Years Old (1 - 1-dose 75+ series) 2034 HIB Vaccines Aged Out No longer eligi ble based on patient's age to complete this topic HPV Vaccines Aged Out No longer eligi ble based on patient's age to complete this topic Hepatitis A Vaccines Aged Out No long er eligible based on patient's age to complete this topic Hepatitis B Vaccines Aged Out No long er eligible based on patient's age to complete this topic IPV Vaccines Aged Out No longer eligi ble based on patient's age to complete this topic MMR Vaccines Aged Out No longer eligi ble based on patient's age to complete this topic Meningococcal ACWY Vaccine Aged Out N o longer eligible based on patient's age to complete this topic Meningococcal B Vacine Aged Out No lo nger eligible based on patient's age to complete this topic Pneumococcal Vaccine: Pediat rics (0 to 5 Years) and At-Risk Patients (6 to 64 Years) Aged Out No longer eligible b ased on patient's age to complete this topic RSV Immunization Patients Un darrius 20 months Aged Out No longer eligible b ased on patient's age to complete this topic Varicella Vaccines Aged Out No longer eligible based on patient's age to complete this topic
--- OUTSIDE RECORDS SUMMARY | 2025-01-01 06:33 | XMS_ITS | Encounter Summary ---
Author Organization [employer] Address [address] [facility] 7[address] [place] [address] Care Team Providers Care Manager Intel Name Role Phone Sue Alicia MD Primary Care Provider [phone] Reason for Visit * Reason Comments Med Refill Encounter Details Date Type Department Care Team ([facility] st Contact Info) Description 10/03/2024 Refill [facility] [address] [place], [place] [phone] Sue Alicia MD [address] [place], [place] [phone] Chronic low back pain, unspecified back pain [...] Description 01/04/2025 11:00 AM EST Office Visit [address] [address] Sue Alicia MD [address] [place] [address] 01/31/2025 9:00 AM EDT Clinical Support [address] [address] Cookie Alcaraz, ABHIJIT documented as of this encounter Visit Diagnoses Diagnosis Chronic low back pain, unspecified back pain laterality, unspecified whether sciatica present documented in this encounter Additional Health Concerns Assessment Noted Time PHQ-9 Depression Total Score: 19 024 2:37 PM EDT documented as of this encounter Care Teams Manager Intel Relationship Specialty Start Date End Date Sue Alicia MD [address] [place] [phone] PCP - General Family Medicine 08/09/23 documented as of this encounter
--- OUTSIDE RECORDS SUMMARY | 2025-01-01 06:34 | XMS_ITS | Clinical Summary ---
Author Organization [employer] [facility] Address [address] [place] [address] Care Team Providers Care Children[facility] Lunchroom Supervisor Name Role Phone Sue Alicia MD Primary Care Provider [phone] Allergies Active Allergy Reactions Criticality Noted Date Comments Aspirin Rash,Headache Medium 09/27/2022 Calcium Headache,Nausea,Vomiting High 03/03/2023 Doxycycline 03/15/2022 Other reaction(s): pt. unsure Other reaction(s): pt. unsure Iodixanol Rash Low 03/15/2022 Penicillins Rash,Headache Medium 09/27/2022 Sulfasalazine 03/03/2023 Other Reaction(s): unknown Tofacitinib High 03/03/2023 Other Reaction(s): chest pain, headaches Medications irbesartan (Avapro) 75 MG tablet Take 1 tablet by mouth at bed time. Active Pentips 32G X 4 MM misc USE 1 DAILY WITH VICTOZA Active clotrimazole (Lotrimin) 1 % cream Apply topically 2 times daily. 024 Active metoprolol tartrate (Lopressor) 25 MG tablet TAKE 1 TABLET BY MOUTH TWICE DAILY IN THE MORNING AND IN THE EVENING WITH FOOD Active atorvastatin (Lipitor) 20 MG tabletIndication s:Hyperlipidemia , unspecified hyperlipidemia type TAKE 1 TABLET BY MOUTH EVERY MORNING 90 tablet 3 Active levothyroxine (Synthroid, Levoxyl) 75 MCG tabletIndication s:Hypothyroidism , unspecified type TAKE 1 TABLET BY MOUTH EVERY MORNING 90 tablet 3 024 Active hydroquinone 4 % cream APPLY A PEA SIZED AMOUNT TO AFFECTED AREA(S) EVERY EVENING. DO NOT USE IF embarazada o en perodo de lactancia Active albuterol (Ventolin HFA) 108 (90 Base) MCG/ACT inhalerIndicatio ns:Shortness of breath Inhale 2 puffs every 6 (six) hours if needed for wheezing. 18 g 11 Active omeprazole (PriLOSEC) [address] capsuleIndicatio ns:Gastroesophag eal reflux disease without esophagitis TAKE 1 CAPSULE BY MOUTH EVERY MORNING 90 capsule 1 Active predniSONE (Deltasone) 5 MG tabletIndication s:Rash and nonspecific skin eruption Take 1 tablet (5 mg) by mouth in the morning. 30 tablet 3 Active glucose blood (FREESTYLE LITE) test stripIndications :Elevated blood sugar TEST BLOOD SUGAR ONCE DAILY DIRECTED 100 strip Active Alcohol Swabs (Alcohol Prep) 70 % pads USE TO CHECK BS ONCE DAILY 100 each Active acetaminophen (Tylenol) 325 MG tablet Take 2 tablets by mouth every 4 (four) hours if needed for mild pain. Active cholecalciferol (D3) 25 MCG (1000 UT) capsule Take 1 capsule by mouth Once per day. Active allopurinol (Zyloprim) 100 MG tablet Take 2 tablets by mouth Once per day. Active gabapentin (Neurontin) 300 MG capsule Take 3 capsules by mouth at bedtime. Active furosemide (Lasix) 40 MG tablet Take 1 tablet by mouth 2 times daily. Active sodium phosphate (Fleet) 3.5-9.5 GM/59ML enema Insert 1 enema into the rectum if needed each day for constipation. Active Humira, 2 Pen, 40 MG/0.4ML Auto-injector Kit INJECT 0.4 ML SUBCUTANEOUSLY EVERY 2 WEEKS DIRECTED Active Ozempic, 0.25 or 0.5 MG/DOSE, 2 MG/3ML solution pen-injectorIndi cations:Type 2 diabetes mellitus with diabetic chronic kidney disease (CMS/HCC) INJECT 0.5 MG SUBCUTANEOUSLY EVERY 7 DAYS IN THE ABDOMEN, THIGHS, OR UPPER ARM, ROTATE INJECTION SITES. 3 mL 1 025 Active cyclobenzaprine (Flexeril) 5 MG tabletIndication s:Chronic low back pain, unspecified back pain laterality, unspecified whether sciatica present TAKE 1 TABLET BY MOUTH THREE TIMES DAILY IN THE MORNING, AT NOON, AND AT BEDTIME FOR MUSCLE SPASMS 40 tablet 025 Active oxyCODONE-acetam inophen (Percocet) 5-325 MG tabletIndication s:Other chronic pain Take 1 tablet by mouth every 6 (six) hours if needed for severe pain for up to 28 days. 112 tablet 025 2024 Active oxyCODONE-acetam inophen (Percocet) 5-325 MG tabletIndication s:Other chronic pain Take 1 tablet by mouth every 6 (six) hours if needed for severe pain for up to 28 days. 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 2024 Overview (11/06/2024): Dx: Rx: Last BASE ENGINEER agreement: Tier II (visit every 3 months) Additional considerations: Timeline: Leg swelling 07/30/2024 Spider vein of lower extremity 07/30/2024 Skin mass 06/08/2024 Family history of breast cancer 02/29/2024 Weight loss 02/08/2024 Assessment & Plan (02/08/2024 9:08 PM EDT): Patient has lost over 50 pounds with diet and exercise Now with excess skin folds of abdomen that have experienced fungal infection, will refer to plastic surgery for panniculectomy Macular drusen, bilateral 08/05/2023 Overview (08/05/2023): Noted on eye exam 02/11/23 Breast calcification, right 05/03/2023 History of primary hyperparathyroidism detention systemic steroid user 05/03/2023 Osteopenia 05/03/2023 Overview (05/03/2023): Pt has fallen out of bed at night multiple times. Has osteoporosis and high risk for falls. Would benefit from a bed with railings Seronegative rheumatoid arthritis 05/03/2023 Spondylosis of lumbar spine 05/03/2023 Lump in chest 05/03/2023 Overview (05/03/2023): Lump right chest 20mm diameter, painful. Onset about 6 months Mammo BIRADS 2 on 04/23/23 Assessment & Plan (05/03/2023 7:36 PM EDT): Has US of R chest lump on 05/13/23 Notify results Followup PRN Health care maintenance 05/03/2023 Overview (05/03/2023): Routine Health Maintenance: Immunizations: due COVID booster HIV: never done, discuss at next visit Hep C: Nonreactive 12/26/19 Hepatitis B: Nonreactive 12/26/19, due Hep B booster series. Discuss next visit Pap Smear: 01/31/2019 NILM, HPV neg. Repeat 5 years, 01/2024 Mammogram: BIRADS 2 on 04/23/23 BMD: 07/16/20 1. DIAGNOSIS: Osteopenia based on the lowest T-score value of -1.9 in the femoral neck applying World Health Organization criteria. 2. 10-YEAR FRACTURE RISK PREDICTION, FRAX: Major osteoporotic fracture (clinical spine, forearm, hip or shoulder) 17.2%. Hip fracture 2.6%. Colonoscopy: 07/19/2016 internal hemorrhoids, sigmoid diverticulosis. Recommend repeat in 10 years. 07/2026 Lung cancer: Former, unknown pack year hx. Discuss at next visit Eye: discuss at next visit Dental: discuss at next visit Mild intermittent asthma without complication Overview (05/03/2023): SHE HAS CHRONIC, INTERMITTENT BRONCHIAL ASTHMA. Use SEVERINO 03/17/23 Type 2 diabetes mellitus wit h stage 2 chronic kidney disease, without long-term current use of insulin ([facility]) 02/25/2023 Assessment & Plan (06/08/2024 11:55 AM EDT): A1C 5.9 Current regimen: Metformin 1000mg BID; Ozempic 0.5mg Microalbumin: due Lipid panel: ordered Foot exam: 06/04/24 Eye: 02/11/23 [facility]; No diabetic retinopathy or macular degeneration Statin: Atorvastatin 20mg MELLISSA/ARB: Irbesartan 75mg Assessment & Plan (02/08/2024 8:59 PM EDT): A1C 6.7 Current regimen: Metformin 1000mg BID; Victoza injection Microalbumin: due Lipid panel: today Foot exam: Perform next visit Eye: 02/11/23 [facility]; No diabetic retinopathy or macular degeneration Statin: Atorvastatin 20mg MELLISSA/ARB: Irbesartan 75mg Assessment & Plan (05/03/2023 7:35 PM EDT): Received PCV 20 today Continue checking BG when asymptomatic and every other day Tx dry skin on fingers w/ Eucerin F/u PRN Abdominal pannus 02/25/2023 Overview (05/03/2023): Pt has lost weight. She is interested in surgical removal of excess skin around abdomen. Appt gen surgery 09/20/23 Assessment & Plan (05/03/2023 7:15 PM EDT): Encouraged pt to continue w/ Diabetes regimen Keep appt in Aug 2023 F/u PRN Diabetic nephropathy associa faiza with type 2 diabetes mellitus 12/30/2020 Renal stone 12/30/2020 Lupus anticoagulant syndrome 12/30/2020 Stage 2 chronic kidney disease 12/30/2020 Epidermoid cyst 04/16/2019 Pain in lower limb 04/04/2019 Assessment & Plan (02/08/2024 8:58 PM EDT): On Gabapentin and Percocet Trial compression stockings when possible Diclofenac cream prn Continue BenGay Right hemiparesis 04/04/2019 Loss of equilibrium 03/06/2019 Assessment & Plan (02/08/2024 9:01 PM EDT): Patient with R hemiparesis and bilateral chronic leg pain Needs new rollator walker with seat (old one R wheel is broken) and portable folding wheelchair Nail discoloration 11/03/2018 Asteatosis cutis 08/24/2018 Disorder of nail 08/24/2018 Chronic constipation 08/02/2018 Overview (05/03/2023): - most likely due to chronic opiod use - continue miralax and colace Hyperlipidemia 01/04/2018 Obstructive sleep apnea syndrome 08/19/2017 Overview (05/03/2023): Uses CPAP machine Pulm appt 03/17/23 Chronic diastolic heart failure 04/22/2015 Overview (08/05/2023): 02/03/23: Cardiology appt Dr Avila. CHF with continuing SOB. Stress test and Echo ordered. F/u 2 months Had Echo and Stress test performed 02/24/23; results pending ECHO results EF 60-65% Normal L ventricular function 05/26/23: CHF stable; SOB f/u with pulm. F/u Cardiology 1 year Assessment & Plan (05/03/2023 7:37 PM EDT): Will task MA to locate records from Echo and stress test Followup PRN Hypothyroidism 12/03/2014 Assessment & Plan (02/08/2024 9:00 PM EDT): Continue daily Synthroid 75mcg Chronic low back pain 02/01/2014 Assessment & Plan (11/06/2024 2:33 PM EST): Pain not controlled on current regimen Will discuss other options at next clinic visit in 2 months Gastroesophageal reflux disease 02/01/2014 History of cholecystectomy 02/01/2014 Fibromyositis 05/05/2012 Hypertension 04/13/2012 Urinary incontinence 04/13/2012 Depressive disorder 1960 Resolved Problems Problem Noted Date Diagnosed Date Resolved Date Dyslipidemia 05/03/2023 05/03/2023 Long-term use of immunosuppressant medication 05/03/20 23 05/03/2023 Encounters Date Type Department Care Team Description 12/31/2024 Telephone [facility] [address] [place] [address] Alma Rosa MaureenDOLORES moreira 12/31/2024 Telephone [facility] MED[facility] [address] [place] [address] Sue Alicia MD Prior Authorization (Cyclobenzaprine 5mg) 12/26/2024 Refill [facility] MED & PEDS [address] [place] [address] Sue Alicia MD Chronic low back pain, unspecified back pain laterality, unspecified whether sciatica present; Other chronic pain 12/19/2024 10:15 AM EST Office Visit [facility] OPTOMETRY [address] [place] [address] Presbyopia (Primary Dx) 12/19/2024 Travel 12/11/2024 Refill [facility] [address] [place] [address] Sue Alicia MD Chronic low back pain, unspecified back pain laterality, unspecified whether sciatica present 11/30/2024 Refill [facility] MED[facility] [address] [place] [phone] Sue Alicia MD Chronic low back pain, unspecified back pain laterality, unspecified whether sciatica present 11/27/2024 Refill [facility] MED & PEDS [address] [place] [address] Sue Alicia MD Other chronic pain 11/21/2024 9:00 AM EST Clinical Support [facility] [address] [place] [phone] Cookie Alcaraz RN Chronic low back pain, unspecified back pain laterality, unspecified whether sciatica present (Primary Dx) 11/21/2024 Telephone [facility] [address] [place] [phone] Cookie Alcaraz RN BASE ENGINEER Renewal today 11/21/2024 Travel 11/21/2024 Telephone [facility] [address] [place] [phone] Cookie Alcaraz, ABHIJIT Recommend BASE ENGINEER Tier 3 11/12/2024 Refill [facility] [address] [place] [address] Sue Alicia MD Type 2 diabetes mellitus with diabetic chronic kidney disease ([facility]/HCC) 11/07/2024 Telephone [facility] [address] [place] [phone] Sue Alicia MD Appointment Request 11/02/2024 11:30 AM EST Office Visit [facility] [address] [place] [address] Sue Alicia MD Pneumonia due to COVID-19 virus (Primary Dx); Cough, unspecified type; Chronic low back pain, unspecified back pain laterality, unspecified whether sciatica present; oil 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 current use of opiate analgesic 11/02/2024 Travel 11/01/2024 Telephone [facility] [address] [place] [phone] Sue Alicia MD Nurse Triage 11/01/2024 Refill [facility] [address] [place] [address] Sue Alicia MD Chronic low back pain, unspecified back pain laterality, unspecified whether sciatica present 10/22/2024 10:00 AM EST Office Visit [facility] OPT[facility] [address] [place] [address] Chaka, Clover, OD Diabetes type 2, no ocular involvement ([facility]) (Primary Dx); Retinal drusen of both eyes; Pseudophakia of both eyes; 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; Presbyopia 10/22/2024 Refill [facility] [address] [place] [address] Sue Alicia MD Other chronic pain 10/22/2024 Travel 10/22/2024 Refill [facility] MED & PEDS [address] [place], [place] [phone] Sue Alicia MD Chronic low back pain, unspecified back pain laterality, unspecified whether sciatica present 10/18/2024 Refill [facility] MED & PEDS [address] [place], [place] [phone] Sue Alicia MD Other chronic pain 10/08/2024 Telephone [facility] [address] [place] [address] Ligia Jimenez, RN Results 10/03/2024 Telephone [facility] [address] [place] [address] Nicole Law, SterlingD Appointment Request 10/03/2024 Refill [facility] [address] [place] [address] Sue Alicia MD Chronic low back pain, unspecified back pain laterality, unspecified whether sciatica present 10/03/2024 Orders Only [facility] [address] [place] [address] Sue Alicia MD 10/03/2024 Refill [facility] [address] [place] [address] Seu Alicia MD Chronic low back pain, unspecified back pain laterality, unspecified whether sciatica present; Rash and nonspecific skin eruption 10/03/2024 Refill [facility] [address] [place] [address] Sue Alicia MD Bronchitis from Last 3 Months Immunizations Name Administration Dates Next Due Influenza injectable quadriv alent IIV4 with preservative 08/20/2019,08/02/2018,07/23/2016 Influenza injectable quadriv alent preservative free 07/23/2021,09/19/2020,07/26/2018,07/18,07/25/2015 Influenza, IIV3, injectable 06/27/2014 Influenza, Split (incl. christophe fied surface antigen) 07/25/2012 Influenza, trivalent, adjuvanted 08/20/2019 Jhoan SARS-CoV-2 Vaccination 01/21/2021 Pfizer Covid-19 Vaccine 12+ 09/23/2021 Pneumococcal Conjugate PCV 13 08/16/2018 Pneumococcal Conjugate PCV 20 04/20/2023 Pneumococcal Polysaccharide PPSV23 10/04/2017 TD (adult), 2 Lf tetanus tox oid, preservative free, adsorbed 05/22/2007 Tdap 10/04/2017 Zoster, Recombinant 03/26/2022 Family History Medical History Relation Name Comments Breast cancer Daughter in rem[place] ag e 49 as of 02/2024 Diabetes Father Glaucoma Mother Relation Name Status Comments Daughter Father Mother Social History Tobacco Use Types Packs/Day Years Used Date Smoking Tobacco: Former Smokeless Tobacco: Never Tobacco Cessation:Counseling Given: Not Answered Alcohol Use Standard Drinks/Week Comments Never 0 [...] is your housing situation today? I have georgenawaf winters 02/08/[address] you [...] Orientation Straight 08/30/2022 10 :14 AM EDT Last Filed Vital Signs Vital Sign Reading Time Taken Comments Blood Pressure 130/77 11/02/2024 11:48 AM EST Pulse 80 11/02/2024 11:48 AM EST Temperature 36.4 ??C (97.5 ??F) 11/02/2024 11:[address] Respiratory Rate 18 11/02/2024 11:48 AM EST Oxygen Saturation 100% 06/04/2024 3:30 PM EDT Inhaled Oxygen Concentration - - Weight 59.6 kg (131 lb 6.4 oz) 11/02/2024 11:48 AM EST Height 157.5 cm (5' 2 ) 11/02/2024 11:48 AM EST Body Mass Index 24.03 11/02/2024 11:48 AM EST Plan of Treatment Upcoming Encounters Date Type Department Care Team (Late st Contact Info) Description 01/04/2025 11:00 AM EST Office Visit [facility] MED[facility] [address] [place] [address] [phone] Sue Alicia MD [address] [place] [address] 01/31/2025 9:00 AM EDT Clinical Support [facility] [address] [place] [phone] Cookie Alcaraz, RN Health Maintenance Due Date Last Done Comments CT Colonography 1959 Colonoscopy 1960 Colorectal Cancer Screening 1960 FIT DNA/Cologuard 1959 FIT 1960 FOBT 1960 Sigmoidoscopy 1960 RSV Patients and Patients Aged 60 years or older (1 - Risk 60-74 years 1-dose series) 2019 Zoster Vaccines (2 of 2) 05/21/2022 03/26/2022 Lipid Panel 06/10/2023 06/10/2022, 02/11/2021 COVID-19 Vaccine ( season) 2024 09/23/2021, 01/21/2021 Influenza Vaccine (#1) 2024 , 09/19/2020, 08/20/2019, Additional history exists Depression Monitoring (PHQ-9) 08/09/2024 02/08/2024, 02/08/2024 Diabetes: Hemoglobin A1C 12/05/20242 024, 02/08/2024, 02/25/2023, Additional history exists Alcohol/Substance Use Screening 02/07/2025 02/08/2024 Depression Screening 02/07/2025 02/08/2024, 02/08/20 24 SDOH Screening 02/07/2025 02/08/2024 Cervical Cancer Screening 02/28/2025 Pap Smear 02/28/2025 02/29/2024 Diabetes: Foot Exam 06/04/2025 06/04/2024, 06/04/2024, 06/04/2024, Additional history exists Mammogram 08/08/2025 08/08/2024, 04/01, 04/23/2023, Additional history exists Tobacco Screening 11/08/2025 11/08/2024 Eye Exam 10/22/2026 10/22/2024, 10/01, 10/22/2024, Additional history exists DTaP/Tdap/Td Vaccines (2 - Td or Tdap) 10/04/2027 10/04/2017, 05/22/2007 HPV/Cotest 02/28/2029 02/29/2024, 01/31/2019 Hepatitis C Screening Completed 12/26/2019 Pneumococcal Vaccine: 50+ Years Completed 04/20/2023, 08/16/2018, 10/04/2017 HIB Vaccines Aged Out No longer eligi [...] patient's age to complete this topic Meningococcal Vaccine Aged Out No ede mejia eligible based on patient's age to complete this topic RSV under 20 months Aged Out No longe r eligible based on patient's age to complete this topic Rotavirus Vaccines Aged Out No longer eligible based on patient's age to complete this topic Procedures Procedure Name Priority Date/Time Associated Diagnosis Comments POCT EDMOND-14 URINE DRUG SCREEN Routine 11/21/2024 9:13 AM EST Chronic low back pain, unspecified back pain laterality, unspecified whether sciatica present POCT RSV (ID NOW RAPID ANTIGEN) Routine 11/02/2024 11:53 AM EST Cough, unspecified type POCT INFLUENZA B Routine 11/02/2024 11:5 2 AM EST Cough, unspecified type POCT INFLUENZA A Routine 11/02/2024 11:5 2 AM EST Cough, unspecified type POCT RAPID COVID ANTIGEN Routine 11/02/2024 11:52 AM EST Cough, unspecified type OCT, RETINA - OU - BOTH EYES Routine 10/22/2024 10:00 AM EST Retinal drusen of both eyes ALBUMIN, RANDOM URINE W/CREATININE Routine 10/03/2024 11:25 AM EST BASIC METABOLIC PANEL Routine 10/03/2024 11:25 AM EST BI MAMMOGRAM SCREENING TOMOSYNTHESIS BILATERAL Routine 08/08/2024 11:20 AM EDT Breast cancer screening by mammogram POCT GLYCOSYLATED HEMOGLOBIN (HGB A1C) Routine 06/04/2024 3:34 PM EDT Type 2 diabetes mellitus with stage 2 chronic kidney disease, without long-term current use of insulin (CMS/HCC) (CMS/HCC) HPV MRNA E6/E7 REFLEX TO HPV 16, 18/45 Routine 02/29/2024 9:12 AM EDT PAP SMEAR Routine 02/29/2024 9:12 AM EDT Cervical cancer screening ZZZ HISTORICAL LIPID PANEL Routine 06/10/2022 10:29 AM EDT ZZZ HISTORICAL HEPATITIS A,B,C PROFILE Routine 12/26/2019 12:05 PM EST from Last 3 Months or Most Recently Relevant to Health Maintenance Results * POCT EDMOND-14 Urine Drug Screen (11/21/2024 9:13 AM EST) [facility] THC Positive TCA, Urine Positive Oxycodone Screen, Urine Positive Urine Urine specimen obtained by clean catch procedure / Unknown 11/21/2024 9:13 AM EST Narrative Cookie Alcaraz RN - 11/21/2024 9:13 AM EST UTOX cup Lot#[id number] Exp. 07/25/26 Internal Pass Control Sue Alicia MD POINT OF CARE TEST ENTER/EDIT ORDERABLES Final Result * POCT Rapid RSV TROTTER ID NOW (11/02/2024 11:53 AM EST) [facility] RSV Rapid Ag POC Negative Negative QC Media Lot # [id number] Lot# Expiration Date , Swab 11/02/2024 11:5 3 AM EST Result [facility] Sue Alicia MD POINT OF CARE TEST ENTER/EDIT ORDERABLES Final Result * (ABNORMAL) POCT Rapid Covid-19 BinaxNOW (11/02/2024 11:52 AM EST) [facility] Rapid COVID Ag Positive QC Media Lot # [id number] Lot# Expiration Date ,026 Swab 11/02/2024 11:5 2 AM EST Result [facility] Sue Alicai MD POINT OF CARE TEST ENTER/EDIT ORDERABLES Final Result * POCT Rapid Influenza B OSOM (11/02/2024 11:52 AM EST) [facility] Rapid Influenza B Ag Negative Negative, Indeterminate QC Media Lot # [id number] Lot# Expiration Date ,025 Swab 11/02/2024 11:5 2 AM EST Result [facility] Sue Alicia MD POINT OF CARE TEST ENTER/EDIT ORDERABLES Final Result * POCT Rapid Influenza A OSOM (11/02/2024 11:52 AM EST) Rapid Influenza A Ag Negative Negative, Indeterminate QC Media Lot # [id number] Lot# Expiration Date [id number] Swab Nasopharyngeal structure / Unknown 11/02/2024 11:52 AM EST Result [facility] Sue Alicia MD POINT OF CARE TEST ENTER/EDIT ORDERABLES Final Result * OCT, Retina - OU - Both Eyes (10/22/2024 10:00 AM EST) Narrative Clover Null, OD - 11/15/2024 1:57 PM EST OCT [facility] [employer] Optical Coherence Tomography Interpretation Report Measurements: OD ??OS Macula Thickness ??196 microns ??217 microns Test findings: OD: widened foveal contour, no cystoid macular edema (CME), clump of small hard drusen superotemporal to fovea, no subretinal fluid (SRF) OS: normal foveal contour, no cystoid macular edema (CME), likely vitelliform lesion superior to the fovea, clump of drusen inferonasal to macula, no subretinal fluid (SRF) Impression and Plan: No treatment at this time. Will monitor at the patient's next exam. Result [facility] Clover Null OD OPHTH TOMOGRAPHY Edited * (ABNORMAL) Albumin, Random Urine W/Creatinine (10/03/2024 11:25 AM EST) Pathologist [facility] Creatinine, Urine 77.46 mg/dL [facility] Microalbumin Urine 24.0 mg/L [facility] Microalbum Creatinine Ratio Ur 30.9(H) <30 ug/mg cr [facility] Comment:Albumin/Creatinine R atio Reference Ranges: Normal: < 30 ug/mg creatinine Microalbuminuria: 30 - 300 ug/mg creatinineClinical Albuminuria: > 300 ug/mg creatinine 10/03/2024 11:2 5 AM EST 10/03/2024 12:59 PM EST Result [facility] Sue Alicia MD LAB URINE ORDERABLES Final Res ult [facility] [address] [place] [phone] [phone] * (ABNORMAL) Basic Metabolic Panel (10/03/2024 11:25 AM EST) Sodium 138 135 - 145 mmol/L [facility] Potassium 3.7 3.3 - 5.1 mmol/L [facility] Chloride 102 96 - 108 mmol/L [facility] Carbon Dioxide 26 22 - 29 mmol/L [facility] Anion Gap 14 12 - 20 [facility] Urea Nitrogen (BUN) 15 9 - 16 mg/dL [facility] Creatinine, Serum 1.44(H) 0.5 - 1.4 mg/dL [facility] Estimated Glomerular Filt Rate 37 [facility] Comment:Chronic Kidney Disea se: Estimated GFR < 60 mL/min/[id number] Kidney Disease: Estimated GFR < 15 mL/min/1.73m2 Glucose 136(H) 60 - 115 mg/dL [facility] Calcium 9.4 8.4 - 10.2 mg/dL [facility] 10/03/2024 11:2 5 AM EST 10/03/2024 12:56 PM EST us Sue Alicia MD LAB BLOOD ORDERABLES Final Res ult [facility] [address] [place] [address] [phone] * BI Mammogram Screening Tomosynthesis Bilateral (08/08/2024 11:20 AM EDT) Anatomical Region Laterality Modality Breast Bilateral Mammography 08/08/2024 11:2 0 AM EDT Narrative 08/20/2024 6:01 PM EDT ? [facility] ? [address] ?[place] [address] ? Mammography Report ? Signed ? Patient: Lopez,Nicky ?MR#: [id number] ?? 3 ? : 1960 ?Acct:[id number] ? Age/Sex: 63 / F ?ADM Date: 10/09/24 ? Loc: HO.MAMMO ? Attending Dr: Isael Hollis MD ? Ordering Physician: LATRICE FORBES CNM ?Results: 2 ?? Benign Findings ? Date of Service: 08/08/24 ?Follow Up: 1 Year From Orig ?? inal Mammogram ? Procedure(s): MM tomosynthesis screening BI ?? Accession Number(s): [id number] ? cc: Sue Alicia; LATRICE FORBES CNM ? EXAMINATION: ?? MM SCREENING DIGITAL BREAST TOMOSYNTHESIS, BILATERAL ? CLINICAL INFORMATION: ? Screening. Asymptomatic. ? COMPARISON: ?? Mammography: Comparison is made with available priors ? TECHNIQUE: ?? Digital breast mammography with tomosynthesis is performed in both the ?? craniocaudal and mediolateral oblique views along with computer-aided ?? detection (CAD). ? FINDINGS: ?? There are scattered areas of fibroglandular density (ACR BI-RADS breast ?? composition Category b). ?? Right marker clip. ?? There are no significant masses, abnormal calcifications, or other ?? abnormalities. ? MM/MM tomosynthesis screening BI ?? IMPRESSION: ?? No mammographic evidence of malignancy. ? ASSESSMENT: ? BI-RADS BI-RADS 2 - Benign Findings ? RECOMMENDATION: ?? Routine annual mammography screening. ? 1 year F/U ? This examination should not preclude the clinical evaluation of a ?? suspicious palpable abnormality. ? This patient's information was entered into a reminder system with a ?? target due date for their next mammogram. ? Electronically signed by: ??Kim Gaytan DO ??08/20/2024 05:58 PM EDT ?? RP ? Dictated By: ?Kim Gaytan DO ? Signed By: ?<Electronically signed by Kim Gaytan, DO in OV> ? 08/20/24 1758 ? DD/ 1120 ? TD/TT: 08/08/24 1140 ? Equipment Operator/Laborer: ? Procedure Note Donotgermaineinterpreter, Image - 08/20/2024 [facility] [address] [place], [place] [address] Mammography Report Signed Patient: Aleshia Lopez#: [id number] 3 : 9Acct:[id number] Age/Sex: 63 / FADM Date: 08/08/24 Loc: HO.MAMMO Attending Dr: Isael Hollis MD Ordering Physician: LATRICE FORBESesults: 2 Benign Findings Date of Service: 08/08/24Follow Up: 1 Year From Orig inal Mammogram Procedure(s): MM tomosynthesis screening BI Accession Number(s): [id number] cc: Sue Alicia; LATRICE FORBES CNM EXAMINATION: MM SCREENING DIGITAL BREAST TOMOSYNTHESIS, BILATERAL CLINICAL INFORMATION: Screening. Asymptomatic. COMPARISON: Mammography: Comparison is made with available priors TECHNIQUE: Digital breast mammography with tomosynthesis is performed in both the craniocaudal and mediolateral oblique views along with computer-aided detection (CAD). FINDINGS: There are scattered areas of fibroglandular density (ACR BI-RADS breast composition Category b). Right marker clip. There are no significant masses, abnormal calcifications, or other abnormalities. MM/MM tomosynthesis screening BI IMPRESSION: No mammographic evidence of malignancy. ASSESSMENT: BI-RADS BI-RADS 2 - Benign Findings RECOMMENDATION: Routine annual mammography screening. 1 year F/U This examination should not preclude the clinical evaluation of a suspicious palpable abnormality. This patient's information was entered into a reminder system with a target due date for their next mammogram. Electronically signed by: Kim Gaytan DO 08/20/2024 05:58 PM EDT Dictated By: Kim Gaytan DO Signed By: <Electronically signed by Kim Gaytan DO in OV> 08/20/24 9038 DD/ 1120 TD/TT: 08/08/24 1140 Equipment Operator/Laborer: Latrice Forbes CNM IMG BI PROCEDURES Edited Result - Final * POCT glycosylated hemoglobin (Hgb A1c) (06/04/2024 3:34 PM EDT) Pathologist [facility] Hemoglobin A1C 5.9 4.0 - 6.0 % QC Media Lot # [id number] Lot# Expiration Date [id number] Blood Capillary blood specimen / Unknown 06/04/2024 3:34 PM EDT Sue Alicia MD POINT OF CARE TEST ENTER/EDIT ORDERABLES Final Result * HPV mRNA E6/E7 w/Reflex to HPV Genotypes 16, 18/45 (02/29/2024 9:12 AM EDT) Pathologist [facility] HPV nRNA E6/E7 Not Detected Not Detected [facility] Comment:Methodology: Transcr iption-Mediated AmplificationThis assay detects E6/E7 viral messenger RNA (mRNA) from 14high-risk HPV types (16,18,31,33,35,39,45,51,52,56,58,59,66,68).Cervical sources are required for HPV testing.If a vaginal source from a patient who has had atotal hysterectomy with removal of cervix wassubmitted, please contact the testing laboratoryfor alternative testing options.For additional information, please refer [email or web address]/faq/[email or web address](This link if provided for information/educational purposes only.)THIS TEST WAS PERFORMED AT:[facility] [place] [phone] RODRIGES MD HPV mRNA E6/E7 TNP [facility] HPV 16 RNA TNP [facility] HPV 18/45 RNA TNP [facility] 02/29/2024 9:12 AM EDT 03/05/2024 8:00 AM EDT us Latrice Forbes CNM LAB CYTOLOGY ORDERABLES F inal Result [facility] [address] [place] [address] [phone] * Pap Smear (02/29/2024 9:12 AM EDT) Swab Cervix uteri structure / Unknown 02/29/2024 9:12 AM EDT 03/05/2024 8:00 AM EDT Narrative [facility] - 03/27/2024 3:52 PM EDT ----- ------- Name: Nicky Lopez ?Age/Sex: 63/F ? : 1960 Unit#: [id number] ?? Attend Dr: LATRICE FORBES CNM ?Re02/29/24 ?Status: DEP REF ? Location: HO.HHCLNP ? Disch: ? ----- ------- SPEC : [id number] ? RECD: 03/05/24 ? STATUS: ??SOUT ? REQ NUM: [id number] ? [place]: 02/29/24 ? SUBM DR: LATRICE FORBES CNM ? ENTERED: ??03/05/24 ?SP TYPE: Pap Smr ?OTHR : ? ORDERED: ??Pap Smear ? Interpretation ?? Satisfactory for evaluation. ?? No endocervical cells seen. ?? Negative for intraepithelial lesion or malignancy. ?HPV mRNA E6/E7: ?NOT DETECTED ? This assay detects E6/E7 viral messenger RNA (mRNA) from 14 high-risk HPV types (16, 18, ?? 31, 33, 35, 39, 45, 51, 52, 56, 58, 59, 66, 68) ?? HPV testing performed by [employer], [place], [place]. ??See reference laboratory ?? portion of the EMR for entire report. ?Clinical Information LMP: Postmenopausal Previous PAP test: 01/2019, NIL/HPV- ? Material Received ?? ThinPrep-Cervical ----- ------- Signed (signature on file) MAC Toro (ASCP) 03/27/24 1552 ? ----- ------- ? END OF REPORT ? us Latrice Forbes [facility] CYTOLOGY ORDERABLES F inal Result [facility] [address] [place] [phone] * (ABNORMAL) LIPID PANEL (06/10/2022 10:29 AM EDT) Cholesterol 156 mg/dL [facility] Comment: Desirable Cholesterol: ?less than 200 mg/dL Borderline High Cholesterol: ??200-239 mg/dL High Cholesterol: ? greater than 239 mg/dL HDL Cholesterol 43 mg/dL [facility] Comment: Desirable HDL: ??greater than 40 mg/dL ?? Note: This HDL assay may give artificially ? low results in patients with liver disease. LDL Cholesterol Calculated 92 mg/dl [facility] Comment: Desirable LDL: ? less than 100 mg/dL Near Optimal/Above Optimal LDL: ??110-129 mg/dL Borderline High LDL: ? 130-159 mg/dL High LDL: ?160-189 mg/dL Very High LDL: ? greater than or equal to ?190 mg/dL Triglycerides 109 mg/dL [facility] Comment: Desirable Triglyceride: ? less than 150 mg/dL Borderline High Triglyceride ??150-199 mg/dL High Triglyceride: ?200-499 mg/dL Very High Triglyceride: ? greater than or equal to ? 5OO mg/dL Alanine Aminotransferase 11 0 - 31 U/L [facility] Albumin Level 3.8 3.5 - 5.0 g/dL [facility] Alkaline Phosphatase 49 39 - 117 U/L [facility] Anion Gap 17 12 - 20 [facility] Aspartate Amino Transferase 15 5 - 31 U/L [facility] Bilirubin Total 0.2 0.0 - 1.0 mg/dL [facility] Blood Urea Nitrogen 18(H) 9 - 16 mg/dL [facility] Calcium 8.2(L) 8.4 - 10.2 mg/dL [facility] Carbon Dioxide 25 22 - 29 mmol/L [facility] Chloride 104 96 - 108 mmol/L [facility] Creatinine, Serum 0.81 0.5 - 1.4 mg/dL [facility] Estimated Glomerular Filt Rate >60 [facility] Comment: NOTE: ??For -Faroese individuals, multiply the result ?by 1.210. ?? Chronic Kidney Disease: ??Estimated GFR < 60 mL/min/1.73m2 Severe Kidney Disease: ??Estimated GFR < 15 mL/min/1.73m2 Glucose Random 92 60 - 115 mg/dL [facility] Potassium 4.2 3.3 - 5.1 mmol/L [facility] Sodium 142 135 - 145 mmol/L [facility] Total Protein 6.7 6.5 - 8.0 g/dL [facility] C Reactive Protein 0.44 < or = 0.50 mg/dL [facility] 06/10/2022 10:2 9 AM EDT Isael Hollis MD HISTORICAL/NON ORDERABLE LABS Final Result Performing Organization Address [facility] Co de Phone Number [facility] [address] * HEPATITIS A,B,C PROFILE (12/26/2019 12:05 PM EST) HEPATITIS B CORE ANTIBODY NONREACTIVE NONREACTIVE [facility] HEPATITIS B INTERPRETATION SEE NOTE [facility] Comment:Negative for Hepatit is B. HEPATITIS B SURFACE ANTIBODY NONREACTIVE NONREACTIVE [facility] Comment:NONREACTIVE: < 8.00 mIU/mL HEPATITIS B SURFACE ANTIGEN NEGATIVE NEGATIVE [facility] HEPATITIS C ANTIBODY NONREACTIVE NONREACTIVE [facility] Comment: Antibodies to HCV not detected; does not exclude early acute HCV infection. 12/26/2019 12:0 5 PM EST Historical Provider HISTORICAL/NON ORDERABLE LABS Final Result Performing Organization Address [facility] de Phone Number [facility] [address] from Last 3 Months or Most Recently Relevant to Health Maintenance Insurance MEDICARE [facility] STANDARD Care Teams Children'S Lunchroom Supervisor Relationship Specialty Start Date End Date Sue Alicia MD [address] [place] [address] PCP - General Family Medicine 08/09/23
--- OUTSIDE RECORDS SUMMARY | 2025-01-01 06:34 | XMS_ITS | Encounter Summary ---
Author Organization [facility] [employer] [facility] Address [address] [place] [address] 7t [place] [address] Care Team Providers Care Deep Well Contractor Name Role Phone Miranda Ramirez Primary Care Provider [phone] Sue Alicia MD Primary Care Provider [phone] Reason for Visit * Reason Comments Med Refill Encounter Details Date Type Department Care Team (Late Contact Info) Description 07/26/2023 Refill [facility] [address] [place] [address] Miranda Ramirez FNP [address] [place] [address] Dept [place] [address] Shortness of breath Social History Tobacco Use Types Packs/Day Years Used Date Smoking Tobacco: Former Cigarettes Smokeless Tobacco: Never Alcohol Use Standard Drinks/Week Comments Never 0 (1 standard drink = 0.6 oz pur e alcohol) Depression Answer Date Recorded Patient Health Questionnaire-9 Score 0 02/25/2023 Depression Answer Date Recorded Patient Health Questionnaire-2 [...] Encounters Date Type Department Care Team (Late Contact Info) Description 01/04/2025 11:00 AM EST Office Visit [facility] [address] [place], [place] [phone] Seu Alicia MD [address] [place] [address] 01/31/2025 9:00 AM EDT Clinical Support [facility] [address] [place] [address] Cookie Alcaraz, RN documented as of this encounter Visit Diagnoses Diagnosis Shortness of breath documented in this encounter Additional Health Concerns Assessment Noted Time PHQ-9 Depression Total Score: 0 02/26/20 23 9:24 AM EDT documented as of this encounter Care Teams Deep Well Contractor Relationship Specialty Start Date End Date Miranda Ramirez FNP PCP - General Family Medicine 12/01/22 08/08/23 Sue Alicia MD [address] [place] [address] PCP - General Family Medicine 08/09/23 documented as of this encounter
--- OUTSIDE RECORDS SUMMARY | 2025-01-01 06:34 | XMS_ITS | Encounter Summary ---
Author Organization [facility] Address [address] [facility] 7t [place] [address] Care Team Providers Care Rn Burn Name Role Phone Miranda Ramirez Primary Care Provider [phone] Sue Alicia MD Primary Care Provider [phone] Reason for Visit * Reason Comments Med Refill Encounter Details Date Type Department Care Team ([facility] st Contact Info) Description 08/01/2023 Refill [facility] [address] [place] [address] Miranda Ramirez FNP [address] [place] [address] Dept [place] [address] Social History Tobacco Use Types Packs/Day Years [...] encounter Miscellaneous Notes * Telephone Encounter - Negrita Diaz CNP - 08/02/2023 10:45 AM EDT Medication is contraindicated due to medical conditions. She will need an appt with pcp to discuss medication options. documented in this encounter Plan of Treatment Upcoming Encounters Date Type Department Care Team (Late st Contact Info) Description 01/04/2025 11:00 AM EST Office Visit [address] [address] Sue Alicia MD [address] [place] [address] 01/31/2025 9:00 AM EDT Clinical Support [address] [address] Cookie Alcaraz, ABHIJIT documented as of this encounter Visit Diagnoses Not on filedocumented in this encounter Additional Health Concerns Assessment Noted Time PHQ-9 Depression Total Score: 0 02/26/20 9:24 AM EDT documented as of this encounter Care Teams Rn Burn Relationship Specialty Start Date End Date Miranda Ramirez FNP PCP - General Family Medicine 12/01/22 08/08/23 Sue Alicia MD [address] [place] [address] PCP - General Family Medicine 08/09/23 documented as of this encounter
--- OUTSIDE RECORDS SUMMARY | 2025-01-01 06:34 | XMS_ITS | Encounter Summary ---
Author Organization [employer] Address [address] [facility] 7t [place] [address] Care Team Providers Care Program Clerk Name Role Phone Sue Alicia MD Primary Care Provider [phone] Encounter Details Date Type Department Care Team (Late st Contact Info) Description 12/19/2024 10:15 AM EST Office Visit [facility] [address] [place], [place] [phone] Presbyopia (Primary Dx) Social History Tobacco Use Types Packs/Day Years [...] AM EDT documented as of this encounter Progress Notes * Clover Null OD - 12/19/2024 10:15 AM EST MH glasses were dispensed. documented in this encounter Plan of Treatment Upcoming Encounters Date Type Department Care Team (Late st Contact Info) Description 01/04/2025 11:00 AM EST Office Visit [facility] [address] [place] [address] Sue Alicia MD [address] [place] [address] 01/31/2025 9:00 AM EDT Clinical Support [address] [address] Cookie Alcaraz RN documented as of this encounter Visit Diagnoses Diagnosis Presbyopia- Primary documented in this encounter Additional Health Concerns Assessment Noted Time PHQ-9 Depression Total Score: 19 024 2:37 PM EDT documented as of this encounter Care Teams Program Clerk Relationship Specialty Start Date End Date Sue Alicia MD [address] [place] [phone] PCP - General Family Medicine 08/09/23 documented as of this encounter
--- OUTSIDE RECORDS SUMMARY | 2025-01-01 06:34 | XMS_ITS | Encounter Summary ---
Author Organization [facility] Address [address] 7t [place] [address] Care Team Providers Care Button Tufting Machine Operator Name Role Phone Sue Alicia MD Primary Care Provider [phone] Reason for Visit * Reason Comments Med Refill Encounter Details Date Type Department Care Team ([facility] st Contact Info) Description 08/26/2023 Refill [facility] [address] [place], [place] [phone] Negrita Diaz FNP [address] [place] [address] Other chronic pain Social History Tobacco Use Types Packs/Day Years [...] with others, in a hotel, in a skilled nursing, living outside on the street, on a [...] 11:00 AM EST Office Visit [facility] [address] [place] [phone] Sue Alicia MD [address] [place] [address] 01/31/2025 9:00 AM EDT Clinical Support [facility] [address] [place] [address] Cookie Alcaraz, ABHIJIT documented as of this encounter Visit Diagnoses Diagnosis Other chronic pain documented in this encounter Additional Health Concerns Assessment Noted Time PHQ-9 Depression Total Score: 0 02/26/20 23 9:24 AM EDT documented as of this encounter Care Teams Button Tufting Machine Operator Relationship Specialty Start Date End Date Sue Alicia MD [address] [place] [phone] PCP - General Family Medicine 08/09/23 documented as of this encounter
--- OUTSIDE RECORDS SUMMARY | 2025-01-01 06:34 | XMS_ITS | Encounter Summary ---
Author Organization [email or web address] [facility] Address [address] [facility] 7t [place] [address] Care Team Providers Care Superintendent Quarry Name Role Phone Sue Alicia MD Primary Care Provider [phone] Reason for Visit * Reason Onset Date Comments Prior Authorization 12/31/2024 Cyclobenzapr ine 5mg Encounter Details Date Type Department Care Team ([facility] st Contact Info) Description 12/31/2024 Telephone [facility] [address] [place], [place] [phone] Sue Alicia MD [address] [place], [place] [phone] Prior Authorization (Cyclobenzaprine 5mg) Social History Tobacco Use Types Packs/Day Years [...] encounter Miscellaneous Notes * Telephone Encounter - Sita Jarvis RN - 12/31/2024 12:37 PM EST Electronic Prior Authorization initiated for Cyclobenzaprine 5mg tablets via [employer] on Cover my Meds. Currently awaiting response documented in this encounter Plan of Treatment Upcoming Encounters Date Type Department Care Team (Late st Contact Info) Description 01/04/2025 11:00 AM EST Office Visit [facility] [address] [place] [address] Sue Alicia MD [address] [place] [phone] 01/31/2025 9:00 AM EDT Clinical Support [address] [address] Cookie Alcaraz RN documented as of this encounter Visit Diagnoses Not on filedocumented in this encounter Additional Health Concerns Assessment Noted Time PHQ-9 Depression Total Score: 19 024 2:37 PM EDT documented as of this encounter Care Teams Superintendent Quarry Relationship Specialty Start Date End Date Sue Alicia MD [address] [place] [address] PCP - General Family Medicine 08/09/23 documented as of this encounter
--- OUTSIDE RECORDS SUMMARY | 2025-01-01 06:34 | XMS_ITS | Encounter Summary ---
Author Organization [facility] Address [address] [place] [address] 7t [place] [address] Care Team Providers Care Employer Relations Representative Name Role Phone Miranda Ramirez Primary Care Provider [phone] Sue Alicia MD Primary Care Provider [phone] Reason for Visit * Reason Comments Med Refill Encounter Details Date Type Department Care Team (Late Contact Info) Description 07/21/2023 Refill [facility] [address] [place], [place] [phone] Miranda Ramirez FNP [address] [place] [address] Dept [place] [address] Hypothyroidism, unspecified type Social History Tobacco Use Types Packs/Day Years [...] 11:00 AM EST Office Visit [facility] [address] [place], [place] [phone] Sue Alicia MD [address] [place] [address] 01/31/2025 9:00 AM EDT Clinical Support [facility] [address] [place] [address] Cookie Alcaraz, RN documented as of this encounter Visit Diagnoses Diagnosis Hypothyroidism, unspecified type documented in this encounter Additional Health Concerns Assessment Noted Time PHQ-9 Depression Total Score: 0 02/26/20 9:24 AM EDT documented as of this encounter Care Teams Employer Relations Representative Relationship Specialty Start Date End Date Miranda Ramirez FNP PCP - General Family Medicine 12/01/22 08/08/23 Sue Alicia MD [address] [place] [address] PCP - General Family Medicine 08/09/23 documented as of this encounter
--- OUTSIDE RECORDS SUMMARY | 2025-01-01 06:34 | XMS_ITS | Encounter Summary ---
Author Organization [employer] Address [address] [facility] [address] 7t [place] [address] Care Team Providers Care Hand Molder And Caster Name Role Phone Sue Alicia MD Primary Care Provider [phone] Encounter Details Date Type Department Care Team ([facility] st Contact Info) Description 09/17/2024 Orders Only [facility] [address] [place] [address] Sue Alicia MD [address] [place], [place] [phone] Bronchitis (Primary Dx) Social History Tobacco Use Types [...] Description 01/04/2025 11:00 AM EST Office Visit [facility] [address] [place] [address] Sue Alicia MD [address] [place] [address] 01/31/2025 9:00 AM EDT Clinical Support [address] [address] Cookie Alcaraz, RN documented as of this encounter Visit Diagnoses Diagnosis Bronchitis- Primary Bronchitis, not specified as acute or chronic documented in this encounter Additional Health Concerns Assessment Noted Time PHQ-9 Depression Total Score: 19 024 2:37 PM EDT documented as of this encounter Care Teams Hand Molder And Caster Relationship Specialty Start Date End Date Sue Alicia MD [address] [place] [address] PCP - General Family Medicine 08/09/23 documented as of this encounter
--- OUTSIDE RECORDS SUMMARY | 2025-01-01 06:34 | XMS_ITS | Encounter Summary ---
Author Organization [employer] Address [address] [facility] 7t [place] [address] Care Team Providers Care Director Sales Support Name Role Phone Sue Alicia MD Primary Care Provider [phone] Reason for Visit * Reason Onset Date Comments Med Refill 12/26/2024 Encounter Details Date Type Department Care Team ([facility] st Contact Info) Description 12/26/2024 Refill [facility] [address] [place], [place] [phone] Sue Alicia MD [address] [place] [address] Chronic low back pain, unspecified back pain laterality, unspecified whether sciatica present; Other chronic pain Social History Tobacco Use [...] the past 12 months, has t he Cloneless, gas, oil or water [employer] threatened to shut off services in your [...] encounter Miscellaneous Notes * Telephone Encounter - Bharati Buckner LPN - 12/26/2024 10:43 AM EST Also received request on oxyCODONE-acetaminophen (Percocet) 5-325 MG tablet documented in this encounter Plan of Treatment Upcoming Encounters Date Type Department Care Team (Late st Contact Info) Description 01/04/2025 11:00 AM EST Office Visit [facility] [address] [place] [address] Sue Alicia MD [address] [place] [address] 01/31/2025 9:00 AM EDT Clinical Support [address] [address] Cookie Alcaraz RN documented as of this encounter Visit Diagnoses Diagnosis Chronic low back pain, unspecified back pain laterality, unspecified whether sciatica present Other chronic pain documented in this encounter Additional Health Concerns Assessment Noted Time PHQ-9 Depression Total Score: 19 024 2:37 PM EDT documented as of this encounter Care Teams Director Sales Support Relationship Specialty Start Date End Date Sue Alicia MD [address] [place] [address] PCP - General Family Medicine 08/09/23 documented as of this encounter
--- OUTSIDE RECORDS SUMMARY | 2025-01-01 06:34 | XMS_ITS | Encounter Summary ---
Author Organization [facility] Address [address] 7t [place] [address] Care Team Providers Care Jig Boring Machine Set Up Operator Name Role Phone Sue Alicia MD Primary Care Provider [phone] Reason for Visit * Reason Comments Med Refill Encounter Details Date Type Department Care Team ([facility] st Contact Info) Description 08/28/2024 Refill [facility]EDS [address] [place], [place] [phone] Sue Alicia MD [address] [place] [address] Chronic low back pain, unspecified back pain [...] Description 01/04/2025 11:00 AM EST Office Visit [address] [address] Sue Alicia MD [address] [place] [address] 01/31/2025 9:00 AM EDT Clinical Support [address] [address] Cookie Alcaraz, ABHIJIT documented as of this encounter Visit Diagnoses Diagnosis Chronic low back pain, unspecified back pain laterality, unspecified whether sciatica present documented in this encounter Additional Health Concerns Assessment Noted Time PHQ-9 Depression Total Score: 19 024 2:37 PM EDT documented as of this encounter Care Teams Jig Boring Machine Set Up Operator Relationship Specialty Start Date End Date Sue Alicia MD [address] [place] [address] PCP - General Family Medicine 08/09/23 documented as of this encounter
--- OUTSIDE RECORDS SUMMARY | 2025-01-01 06:34 | XMS_ITS | Encounter Summary ---
Author Organization [facility] Address [address] [place] [address] 7t [place] [address] Care Team Providers Care Bacon Slicer Name Role Phone Miranda Ramirez Primary Care Provider [phone] Seu Alicia MD Primary Care Provider [phone] Reason for Visit * Reason Comments Med Refill Encounter Details Date Type Department Care Team (Late Contact Info) Description 07/25/2023 Refill [facility] [address] [place] [address] Miranda Ramirez FNP [address] [place] [address] Dept [place] [address] Shortness of breath Social History Tobacco Use [...] Description 01/04/2025 11:00 AM EST Office Visit [facility] [address] [place], [place] [phone] Sue Alicia MD [address] [place] [address] 01/31/2025 9:00 AM EDT Clinical Support [facility] [address] [place] [address] Cookie Alcaraz, RN documented as of this encounter Visit Diagnoses Diagnosis Shortness of breath documented in this encounter Additional Health Concerns Assessment Noted Time PHQ-9 Depression Total Score: 0 02/26/20 23 9:24 AM EDT documented as of this encounter Care Teams Bacon Slicer Relationship Specialty Start Date End Date Miranda Ramirez FNP PCP - General Family Medicine 12/01/22 08/08/23 Sue Alicia MD [address] [place] [address] PCP - General Family Medicine 08/09/23 documented as of this encounter
--- OUTSIDE RECORDS SUMMARY | 2025-01-01 06:34 | XMS_ITS | Continuity of Care Document ---
Author Organization [facility] Address [address] [place] [address]- Care Team Providers Care Digital Composer Name Role Phone Gideon Mccormack MD Primary Care Physician [id number] Date(s): 08/08/24 - 12/06/24 [facility] [address] [place], [place] [address] Attending Physician: Sheryl Ramirez NP Admitting Physician: Sheryl Ramirez NP Encounter Type: Pre Office Visit Allergies, Adverse Reactions, Alerts Substance Criticality Severity Reaction Reaction Severity Status doxycycline pt. unsure Active aspirin headache Active penicillins rash,hives Active Visipaque rash Active Medications acetaminophen-hydrocodone 500 mg-5 mg oral capsule 1 capsule, By Mouth, Every 6 hours, 0 Refills, Maintenance, 11/06/13 12:49:18 PM EST Start Date: 11/06/13 Status: Ordered Repeat number: 1 atorvastatin 20 mg oral tablet 0 Refills, Maintenance, 07/25/24 9:58:00 AM EDT, Partial fill upon patient request if the prescription is for a schedule II opioid drug. Start Date: 07/25/24 Status: Ordered Repeat number: 1 cholecalciferol 2000 intl units oral capsule 1 capsule = 50 mcg, By Mouth, Daily, 0 Refills, Maintenance, 07/25/24 10:00:00 AM EDT, Capsule, Partial fill upon patient request if the prescription is for a schedule II opioid drug. Start Date: 07/25/24 Status: Ordered Repeat number: 1 Citracal Maximum + Vitamin D Tablet 2 tablet, By Mouth, 2 times a day, 0 Refills, Maintenance, 11/13/13 11:37:29 AM EST, Tablet Start Date: 11/13/13 Status: Ordered Repeat number: 1 Flexeril Tablet See Instructions, By Mouth, Daily at bedtime, 2 tabs, Maintenance, 11/06/13 1:02:14 PM EST Start Date: 11/06/13 Status: Ordered Repeat number: 1 Furosemide = 40 mg, By Mouth, Daily, 0 Refills, Maintenance, 03/03/16 6:16:09 PM EDT Start Date: 03/03/16 Status: Ordered Repeat number: 1 Gabapentin = 600 mg, By Mouth, Daily at bedtime, 0 Refills, Maintenance, 09/13/13 1:10:40 PM EST Start Date: 09/13/13 Status: Ordered Repeat number: 1 hydroxychloroquine 200 mg oral tablet 1 tablet = 200 mg, By Mouth, Daily, 0 Refills, Maintenance, 09/13/13 1:11:02 PM EST Start Date: 09/13/13 Status: Ordered Repeat number: 1 levothyroxine 75 mcg (0.075 mg) oral tablet 1 tablet = 75 mcg, By Mouth, Daily, 0 Refills, Maintenance, 07/25/24 10:02:00 AM EDT, Partial fill upon patient request if the prescription is for a schedule II opioid drug. Start Date: 07/25/24 Status: Ordered Repeat number: 1 Melatonin 3 mg oral tablet 1 tablet = 3 mg, By Mouth, Daily at bedtime, take 1 tablet daily at 7pm, # 30 tablet, 1 Refills, Maintenance, 06/01/17 9:53:40 AM EDT, Tablet, [facility]/pharm[facility] #[id number], 1 tablet By Mouth Daily at bedtime,Instr:take 1 tablet daily at 7pm Start Date: 06/01/17 Status: Ordered Quantity: 30.0 Unit: tablet Repeat number: 2 MetFORMIN (Eqv-Glucophage XR) 500 mg oral tablet, extended release 0 Refills, Maintenance, 07/25/24 9:58:00 AM EDT, Partial fill upon patient request if the prescription is for a schedule II opioid drug. Start Date: 07/25/24 Status: Ordered Repeat number: 1 prednisone 5 mg oral tablet 1 tablet = 5 mg, By Mouth, Daily, 0 Refills, Maintenance, 11/06/13 12:24:26 PM EST Start Date: 11/06/13 Status: Ordered Repeat number: 1 PriLOSEC OTC 20 mg oral delayed release tablet 1 tablet = 20 mg, By Mouth, Daily, PRN Other, 0 Refills, Maintenance, 06/13/13 11:55:58 AM EDT Start Date: 06/13/13 Status: Ordered Repeat number: 1 spironolactone 25 mg oral tablet 1 tablet = 25 mg, By Mouth, 2 times a day, 0 Refills, Maintenance, 06/13/13 12:05:44 PM EDT Start Date: 06/13/13 Status: Ordered Repeat number: 1 Valsartan = 80 mg, By Mouth, Daily, 0 Refills, Maintenance, 03/03/16 6:16:45 PM EDT Start Date: 03/03/16 Status: Ordered Repeat number: 1 Victoza 18 mg/3 mL subcutaneous solution = 1.8 mg, Subcutaneous Injection, Daily, # 9 mL, 0 Refills, Maintenance, 07/25/24 9:59:00 AM EDT, Solution, Partial fill upon patient request if the prescription is for a schedule II opioid drug. Start Date: 07/25/24 Status: Ordered Quantity: 9.0 Unit: mL Repeat number: 1 Problem List Condition Confirmation Course Effective Dates Status Health St atus Informant Chronic diastolic heart failure Confirmed Active CKD (chronic kidney disease) stage 2, GFR 60-89 ml/min Confirmed Active Chronic pain Confirmed Active Depression Confirmed Active Hypertension Confirmed Active Hypothyroid Confirmed Active Mild intermittent asthma Confirmed Active Rheumatoid arthritis Confirmed Active Right hemiparesis Confirmed Active Type 2 diabetes mellitus Confirmed Active Social History Social History Type Response Smoking Status Former smoker; Tobac co user in household: No entered on: 01/16/16 Sex Sex Representation Female (finding) Patient Care team information Care Team Personnel Name: Liane Dominguez RN [facility] RN Member Role: Primary Care Nurse Name: Gideon Mccormack MD [facility] Outreach Member Role: PCP Address: [address] [place] [id number] Telecom: Name: Armando Lehman RN Position: [facility]BLES RN Member Role: Primary Care Nurse Care Team Related Persons Name: KEON RUTH Name: LAY ABBASI Name: YOLANDE MELGAR Name: MARGIE MELGAR Insurance Providers Guarantor name: MARIA D Health Plan Information #: 1 Payer: [employer] Member Number: [id number] Policy Number: MARIA D Group Number: MARIA D Health Plan Information #: 2 Payer: [facility] Member Number: [id number] Policy Number: MARIA D Group Number: [id number]
--- OUTSIDE RECORDS SUMMARY | 2025-01-01 06:34 | XMS_ITS | Encounter Summary ---
Author Organization [employer] [facility] Address [address] 7t [place] [address] Care Team Providers Care Access Analyst Name Role Phone Sue Alicia MD Primary Care Provider [phone] Reason for Visit * Reason Comments Med Refill Encounter Details Date Type Department Care Team ([facility] st Contact Info) Description 10/03/2024 Refill [facility] [address] [place], [place] [phone] Sue Alicia MD [address] [place], [place] [phone] Bronchitis Social History Tobacco Use Types Packs/Day Years [...] Office Visit [facility] [address] [place] [address] Sue Alicia MD [address] [place] [address] 01/31/2025 9:00 AM EDT Clinical Support [address] [address] Cookie Alcaraz, RN documented as of this encounter Visit Diagnoses Diagnosis Bronchitis Bronchitis, not specified as acute or chronic documented in this encounter Additional Health Concerns Assessment Noted Time PHQ-9 Depression Total Score: 19 024 2:37 PM EDT documented as of this encounter Care Teams Access Analyst Relationship Specialty Start Date End Date Sue Alicia MD [address] [place] [address] PCP - General Family Medicine 08/09/23 documented as of this encounter
== END 2025-01-01 06:30 | disposition home or self-care (01) ==
LOC: CF 06:29
PROVIDERS: Visit Provider Anesthesiology
DX: Z13.89 Encounter for screening for other disorder (principal)

== ENCOUNTER 2025-01-02 09:15 | Outpatient (AMB) | payer MEDICAID, SELFPAY ==
--- NOTE | 2025-01-02 09:19 | A.OFFVIS_ITS ---
Vital Signs 01/02/25 09:21 Height 5 ft 2 in Weight 139 lb 15.896 oz BMI 25.6 BP 100/60 Blood Pressure Location Lt brachial Position Sitting Pulse 63 Pulse Source Pulse Oximeter Pulse Oximetry (%) 99 Oxygen Delivery Method Room Air Intake Visit Reasons: sleep apnea Intake Note: pt is here and states she feels good and cpap is going okay. Line Service Supervisor Required: No Allergies aspirin [ASA] Allergy (Intermediate, Verified 01/02/25 10:32) ITCHY, HOT, AND HEADACHE calcium Allergy (Intermediate, Verified 01/02/25 10:32) Vomiting Penicillins Allergy (Intermediate, Verified 01/02/25 10:32) RASH tofacitinib [Xeljanz] Allergy (Intermediate, Verified 01/02/25 10:32) chest pain, headaches sulfasalazine Allergy (Unknown, Verified 01/02/25 10:32) unknown Medication List - Last Reconciled 01/02/25 by Radha Whitfield MD albuterol sulfate 90 mcg/actuation (ProAir HFA) 2 puffs PO Q6H PRN albuterol sulfate 1.25 mg (3 mL) inhalation Q4-6H PRN 30 days alcohol swabs (Alcohol Prep Pads) USE DIRECTED SIX TIMES DAILY allopurinol 200 mg (2 x 100 mg) PO QPM 90 days aripiprazole (Abilify) 10 mg PO .every 2 days artifi.tears(hypromellose)(PF) 0.3% 1 drp ophthalmic (eye) Q4-6H PRN atorvastatin 20 mg PO DAILY blood sugar diagnostic (FreeStyle Lite Strips) As directed blood-glucose meter (FreeStyle [place] Lite kit) As directed cane As directed docusate sodium (Colace) 100 mg PO BID furosemide 40 mg PO .every 2 days gabapentin 900 mg (3 x 300 mg) PO BEDTIME 90 days Humira(CF) Pen (adalimumab) 40 mg (0.4 mL) subcut Q2W 30 days NS hydrocodone-acetaminophen 5-325 mg 1 tab PO Q6H PRN irbesartan 75 mg PO DAILY levothyroxine 75 mcg PO DAILY melatonin 10 mg PO BEDTIME PRN metformin ER 1,000 mg (2 x 500 mg) PO BID metoprolol tartrate 25 mg PO BID naloxone 4 mg/actuation (Narcan) 1 spray intranasal Q2M omeprazole magnesium (Prilosec OTC) 20 mg PO DAILY pen needle, diabetic (Pentips Pen Needle) USE 1 DAILY WITH VICTOZA polyethylene glycol 3350 (Miralax) 17 grams PO DAILY prednisone 5 mg PO DAILY 90 days semaglutide (Ozempic) 1 mg (0.75 mL) subcut QWEEK sennosides (senna) 8.6 mg PO DAILY zolpidem (Ambien) 5 mg PO BEDTIME PRN Do you need a note to return to daycare/school/sports/work: No HPI HPI sleep apnea: Details: 64 years old female is here for follow-up. She is very anxious, a case of bipolar disorder, speaks Vietnamese, her son was with her in the room who was mostly interpreting . And facilitated our conversation She complains of frequent bouts of cough, and blames it on not having the albuterol solution to use in the nebulizer. However she denies any wheezing attacks. And denies any significant dyspnea when she walks around. She has been using CPAP for many years, and claims that she is using. It regularly However when we review her compliance report she is using intermittently. . Anyway she denies. Any daytime sleepiness . [facility] Medical History Lipoma On allopurinol therapy Gout Breast calcification, right Long-term use of immunosuppressant medication Positive PHYLLIS (antinuclear antibody) Fibromyalgia History of primary hyperparathyroidism Osteopenia Dyslipidemia Hypothyroidism LONA on CPAP Bronchial asthma Epidermal inclusion cyst Morbid obesity Gout of right foot PHYLLIS positive Seronegative rheumatoid arthritis Diabetes type 2, uncontrolled Surgical History History of surgery Hx of excision of mass History of kidney surgery S/P breast lumpectomy H/O parathyroidectomy Hx of cholecystectomy H/O tubal ligation Family History Daughter History of breast cancer Father Cirrhosis Diabetes Arthritis Mother Arthritis Sister Diabetes Social History Alcohol intake: never Patient Tobacco Use Status: Former Tobacco user Tobacco use type: Cigarette Substance Use Type: Marijuana Female Reproductive History Menstrual Age of Menarche: 11 Review of Systems Const All systems reviewed & are unremarkable except as noted in HPI and below Eyes Reports no additional complaints ENT Reports nasal congestion (Mild off and on) Card Denies chest pain, Denies irregular heart rhythm and Denies leg edema Resp Reports as per HPI GI Reports no additional complaints Reports no additional complaints Musc Reports back pain, Reports arthralgias and Reports other (Being treated for rheumatoid arthritis) Skin/Breast Reports system reviewed and no additional complaints, except as documented Neuro Reports no additional complaints Psych Reports anxiety Endo Reports no additional complaints Gamal/Lymph Reports no additional complaints Physical Exam Const General: comfortable, no acute distress, alert and awake Orientation/consciousness: patient oriented x3 HEENT Head: Yes normal to inspection General nose exam: No nasal polyps present and No nasal discharge present Face and sinus: Yes sinuses nontender Mouth: oropharynx normal Throat: Yes posterior oropharynx normal Eyes General: appearance normal, both eyes and all related structures Neck Neck: Yes normal visual inspection, Yes no lymphadenopathy, Yes trachea midline and Yes no JVD Thyroid: Thyroid normal Chest Chest palpation & inspection: normal inspection of the chest, normal palpation of entire chest wall and no tenderness Resp Other: Percussion note resonant, breath sounds are equal on both sides. No wheezes rhonchi or crepitations are heard. Cardio Palpation: normal PMI Rate: regular rate Rhythm: regular rhythm Heart sounds: no gallops and no murmurs Peripheral pulses: Peripheral pulses 2+ throughout GI Palpation (GI): Soft to palpation, nontender, No hepatosplenomegaly present and no masses Auscultation: normal bowel sounds Back/Spine/Pelvis Thoracic/Lumbar Spine: thoracic and lumbar spine normal to inspection Skin General skin exam: no rashes or lesions noted Neuro General: patient oriented x3 and no focal motor deficits Cranial nerves: Yes CN's II-XII intact bilaterally Extrem General: Yes normal to inspection, Yes no clubbing, cyanosis or edema and Yes no calf tenderness Psych Appearance: grossly normal and well kempt Speech and movement: Normal speech and movement present Results Reviewed Results Reviewed: Compliance report for the last 30 nights is reviewed she has used 15/30 nights. And her use it per night is varies from 2 hours to 4 hours. The residual AHI 1.8, Assessment & Plan Assessment & Plan (1) Bronchial asthma: Comment: SHE HAS CHRONIC, INTERMITTENT BRONCHIAL ASTHMA. SHE HAS HAD NO ACUTE RESPIRATORY SYMPTOMS. SHE IS ON PREDNISONE 5 MG A DAY, THIS IS FOR TREATMENT OF SERONEGATIVE LUPUS SYNDROME. IT DOES HELP TO KEEP HER LUNGS CLEAR Code(s): J45.909 - Unspecified asthma, uncomplicated Category: Medical Plan: USE ALBUTEROL HFA 2 PUFFS Q 6 HOURS ONLY P.R.N. SHE PREFERS TO USE ALBUTEROL IN THE NEBULIZER AND I WILL SEND PRESCRIPTION FOR MORE ALBUTEROL SOLUTION. (2) LONA on CPAP: Comment: PATIENT BEING TREATED FOR OBSTRUCTIVE SLEEP APNEA FOR THE PAST MANY YEARS. The CPAP device is old and has failed to transmit any data. So we do not have electronic , record of her compliance. The patient tells that she is using every night regularly and sleeping for 3-4 hours at a time. The compliance report however indicates that she is using about 50% of the nights. She has lost significant amount of weight and I think that she may have overcome the diagnosis of obstructive sleep apnea. Code(s): G47.33 - Obstructive sleep apnea (adult) (pediatric); Z99.89 - Dependence on other enabling machines and devices Category: Medical Plan: This patient is anxious, with bipolar disorder, difficult to deal with. She does not understand the need for doing another sleep study. At this time I would just leave her to use CPAP as much as she can , every night Coding Level of Care Code Est Pt Level 3 (42372) Diagnoses Bronchial asthma J45.909 LONA on CPAP G47.33; Z99.89
[2025-01-02 09:21] VITALS: BP 100/60; PULSE 63; O2SAT 99; BMI 25.6
--- OUTSIDE RECORDS SUMMARY | 2025-01-02 10:14 | XMS_ITS | Encounter Summary ---
Author Organization [facility] Address [address] 7t [place] [address] Care Team Providers Care Cloth Measurer Machine Name Role Phone Sue Alicia MD Primary [...] (Late st Contact Info) Description 02/06/2024 Telephone [facility] [address] [place], [place] [phone] Sue Alicia MD [address] [place], [place] [phone] Letter for Housing (I called to get [...] Description 01/04/2025 11:00 AM EST Office Visit [facility] [place] [address] [place] [address] 01/31/2025 9:00 AM EDT Clinical Support [facility] [place] [address] Cooike Alcaraz RN documented as of this encounter Visit Diagnoses Not on filedocumented in this encounter Additional Health Concerns Assessment Noted Time PHQ-9 Depression Total Score: 0 02/26/20 9:24 AM EDT documented as of this encounter Care Teams Cloth Measurer Machine Relationship Specialty Start Date End Date Sue Alicia MD [facility] [place] [address] PCP - General Family Medicine 08/09/23 documented as of this encounter
--- OUTSIDE RECORDS SUMMARY | 2025-01-02 10:14 | XMS_ITS | Encounter Summary ---
Author Organization [facility] Address [address] [facility] 7t [place] [address] Care Team Providers Care Telegraphic Typewriter Installer Name Role Phone Sue Alicia MD Primary Care Provider [phone] Reason for Referral * Consultation (Routine) - Closed Specialty Diagnoses / Procedures Referred By Saroj bauman Referred To Contact Vascular Surgery Diagnoses Pain due to varicose veins of both lower extremities Sue Alicia MD [address] [place] [address] Phone: tel: fax: [facility] [address] [place], [place] Phone: tel: fax: Referral ID Status Reason Start Date Expiration Date V isits Requested Visits Authorized [id number] Closed Specialty Services Required 04/17/2024 04/17/2025 6 6 * Consultation (Routine) - Pending Review Specialty Diagnoses / Procedures Referred By Saroj bauman Referred To Contact Pulmonary Disease Diagnoses Mild intermittent asthma without complication Obstructive sleep apnea syndrome Sue Alicia MD [address] [place] [address] Phone: tel: fax: [facility]monology [address] [place], [place] Phone: tel: fax: Referral ID Status Reason Start Date Expiration Date Visits Requested Visits Authorized [id number] Pending Review Specialty Services Required 04/19/2024 04/19/2025 6 6 Encounter Details Date Type Department Care Team (Late st Contact Info) Description 04/03/2024 Orders Only [facility] [address] [place] [address] Sue Alicia MD [address] [place], [place] [phone] Mild intermittent asthma without complication (Primary Dx); [...] Description 01/04/2025 11:00 AM EST Office Visit [address] [address] Sue Alicia MD [address] [place] [address] 01/31/2025 9:00 AM EDT Clinical Support [address] [address] Cookie Alcaraz RN Scheduled Referrals Name Type [...] documented as of this encounter Care Teams Telegraphic Typewriter Installer Relationship Specialty Start Date End Date Sue Alicia MD [address] [place] [address] PCP - General Family Medicine 08/09/23 documented as of this encounter
--- OUTSIDE RECORDS SUMMARY | 2025-01-02 10:14 | XMS_ITS | Encounter Summary ---
Author Organization [employer] Address [address] [facility] 7t [place] [address] Care Team Providers Care Metallurgical Analyst Name Role Phone Sue Alicia MD Primary Care Provider [phone] Encounter Details Date Type Department Care Team ([facility] st Contact Info) Description 11/22/2023 Orders Only [facility] [address] [place], [place] [phone] Sue Alicia MD [address] [place], [place] [phone] Social History Tobacco Use Types Packs/Day Years [...] with others, in a hotel, in a detention, living outside on the street, on a [...] 11:00 AM EST Office Visit [facility] [address] [place] [address] Sue Alicia MD [address] [place] [address] 01/31/2025 9:00 AM EDT Clinical Support [facility] [address] [place] [address] Cookie Alcaraz RN documented as of this encounter Visit Diagnoses Not on filedocumented in this encounter Additional Health Concerns Assessment Noted Time PHQ-9 Depression Total Score: 0 02/26/20 23 9:24 AM EDT documented as of this encounter Care Teams Metallurgical Analyst Relationship Specialty Start Date End Date Sue Alicia MD [address] [place] [address] PCP - General Family Medicine 08/09/23 documented as of this encounter
--- OUTSIDE RECORDS SUMMARY | 2025-01-02 10:14 | XMS_ITS | Encounter Summary ---
Author Organization [facility] Address [address] [facility] 7t [place] [address] Care Team Providers Care Pulp And Paper Tester Name Role Phone Sue Alicia MD Primary Care Provider [phone] Reason for Visit * Reason Onset Date Comments Med Refill 08/29/2023 Encounter Details Date Type Department Care Team ([facility] Contact Info) Description 08/29/2023 Telephone [facility] 230 [place], [place] [phone] Sue Alicia MD 230 [place], [place] [phone] Med Refill Social History Tobacco Use Types [...] with others, in a hotel, in a group home, living outside on the street, on a [...] (Flexeril) 10 MG tablet Please sent to [facility] - [place], [place] - [address] [place] [address] documented in this encounter Plan of Treatment Upcoming Encounters Date Type Department Care Team (Late st Contact Info) Description 01/04/2025 11:00 AM EST Office Visit [address] [address] Sue Alicia MD [address] [place] [address] 01/31/2025 9:00 AM EDT Clinical Support [address] [address] Cookie Alcaraz, RN documented as of this encounter Visit Diagnoses Not on filedocumented in this encounter Additional Health Concerns Assessment Noted Time PHQ-9 Depression Total Score: 0 02/26/20 23 9:24 AM EDT documented as of this encounter Care Teams Pulp And Paper Tester Relationship Specialty Start Date End Date Sue Alicia MD [address] [place] [address] PCP - General Family Medicine 08/09/23 documented as of this encounter
--- OUTSIDE RECORDS SUMMARY | 2025-01-02 10:14 | XMS_ITS | Encounter Summary ---
Author Organization [facility] Address 75 [facility] 7t [place] [address] Care Team Providers Care Marketing Strategy Lead Name Role Phone Sue Alicia MD Primary Care Provider [phone] Reason for Visit * Reason Onset Date Comments Referral 04/02/2024 Encounter Details Date Type Department Care Team ([facility] Contact Info) Description 04/02/2024 Telephone [facility] 230 [place], [place] [phone] Sue Alicia MD 230 [place], [place] [phone] Referral Social History Tobacco Use Types Packs/Day [...] referral : DATE: n/a TIME: n/a Address: [address] [place] [address] Visits: all year long 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: [facility] glue jointer operator Type of Specialist: glue jointer operator Provider : Rhea Locke MD Address: [address] [place] [address] Fax #: [phone] documented in this encounter Plan of Treatment Upcoming Encounters Date Type Department Care Team ([facility] st Contact Info) Description 01/04/2025 11:00 AM EST Office Visit [facility] [address] [place] [address] Sue Alicia MD [address] [place] [address] 01/31/2025 9:00 AM EDT Clinical Support [facility] [address] [place] [address] Cookie Alcaraz RN documented as of this encounter Visit Diagnoses Not on filedocumented in this encounter Additional Health Concerns Assessment Noted Time PHQ-9 Depression Total Score: 19 024 2:37 PM EDT documented as of this encounter Care Teams Marketing Strategy Lead Relationship Specialty Start Date End Date Sue Alicia MD 230 [place] [address] PCP - General Family Medicine 08/09/23 documented as of this encounter
--- OUTSIDE RECORDS SUMMARY | 2025-01-02 10:14 | XMS_ITS | Encounter Summary ---
Author Organization [employer] Address 75 [facility] 7t [place] [address] Care Team Providers Care Color Checker Roving Or Yarn Name Role Phone Sue Alicia MD Primary Care Provider [phone] Encounter Details Date Type Department Care Team [...] Description 01/04/2025 11:00 AM EST Office Visit [address] [address] Sue Alicia MD [address] [place] [address] 01/31/2025 9:00 AM EDT Clinical Support [address] [address] Cookie Alcaarz, RN documented as of this encounter Visit Diagnoses Not on filedocumented in this encounter Additional Health Concerns Assessment Noted Time PHQ-9 Depression Total Score: 19 024 2:37 PM EDT documented as of this encounter Care Teams Color Checker Roving Or Yarn Relationship Specialty Start Date End Date Sue Alicia MD [address] [place] [phone] PCP - General Family Medicine 08/09/23 documented as of this encounter
--- OUTSIDE RECORDS SUMMARY | 2025-01-02 10:14 | XMS_ITS | Encounter Summary ---
Author Organization [employer] Address 75 [facility] 7t [place] [address] Care Team Providers Care It Support Analyst Name Role Phone Sue Alicia MD Primary Care Provider [phone] Reason for Visit * Reason Comments Med Refill Encounter Details Date Type Department Care Team ([facility] st Contact Info) Description 10/03/2024 Refill [facility] 230 [place], [place] [phone] Sue Alicia MD 230 [place], [place] [phone] Chronic low back pain, unspecified back pain [...] Description 01/04/2025 11:00 AM EST Office Visit [address] [address] Sue Alicia MD [address] [place] [address] 01/31/2025 9:00 AM EDT Clinical Support [address] [address] Cookie Alcaraz, ABHIJIT documented as of this encounter Visit Diagnoses Diagnosis Chronic low back pain, unspecified back pain laterality, unspecified whether sciatica present documented in this encounter Additional Health Concerns Assessment Noted Time PHQ-9 Depression Total Score: 19 024 2:37 PM EDT documented as of this encounter Care Teams It Support Analyst Relationship Specialty Start Date End Date Sue Alicia MD [address] [place] [address] PCP - General Family Medicine 08/09/23 documented as of this encounter
--- OUTSIDE RECORDS SUMMARY | 2025-01-02 10:14 | XMS_ITS | Encounter Summary ---
Author Organization [employer] Address [address] [facility] [address] 7t [place] [address] Care Team Providers Care Customer Support Manager Name Role Phone Sue Alicia MD Primary Care Provider [phone] Encounter Details Date Type Department Care Team (Late st Contact Info) Description 12/19/2024 10:15 AM EST Office Visit [facility] [address] [place], [place] [phone] Presbyopia (Primary Dx) Social History Tobacco Use [...] Description 01/04/2025 11:00 AM EST Office Visit [facility] [address] [place] [address] Sue Alicia MD [address] [place] [address] 01/31/2025 9:00 AM EDT Clinical Support [address] [address] Cookie Alcaraz RN documented as of this encounter Visit Diagnoses Diagnosis Presbyopia- Primary documented in this encounter Additional Health Concerns Assessment Noted Time PHQ-9 Depression Total Score: 19 024 2:37 PM EDT documented as of this encounter Care Teams Customer Support Manager Relationship Specialty Start Date End Date Sue Alicia MD [address] [place] [address] PCP - General Family Medicine 08/09/23 documented as of this encounter
--- OUTSIDE RECORDS SUMMARY | 2025-01-02 10:14 | XMS_ITS | Encounter Summary ---
Author Organization [employer] [facility] Address 75 [facility] 7t [place] [address] Care Team Providers Care Automotive Drivability Technician Name Role Phone Sue Alicia MD Primary Care Provider Reason for Visit * Reason Onset Date Comments Med Refill 11/21/2023 Encounter Details Date Type Department Care Team ([facility] st Contact Info) Description 11/21/2023 Refill [facility] 230 [place], [place] [phone] Sue Alicia MD 230 [place], [place] [phone] Chronic low back pain, unspecified back pain [...] with others, in a hotel, in a long-term, living outside on the street, on a [...] 10 MG tablet To be sent to: [facility] - [place], [place] - [address] [place] [address] documented in this encounter Plan of Treatment Upcoming Encounters Date Type Department Care Team (Late st Contact Info) Description 01/04/2025 11:00 AM EST Office Visit [facility] [address] [place] [address] Sue Alicia MD 230 [place] [address] 01/31/2025 9:00 AM EDT Clinical Support [address] [address] Cookie Alcaraz RN documented as of this encounter Visit Diagnoses Diagnosis Chronic low back pain, unspecified back pain laterality, unspecified whether sciatica present Rash and nonspecific skin eruption Rash and other nonspecific skin eruption documented in this encounter Additional Health Concerns Assessment Noted Time PHQ-9 Depression Total Score: 0 02/26/20 23 9:24 AM EDT documented as of this encounter Care Teams Automotive Drivability Technician Relationship Specialty Start Date End Date Sue Alicia MD 230 [place] [address] PCP - General Family Medicine 08/09/23 documented as of this encounter
--- OUTSIDE RECORDS SUMMARY | 2025-01-02 10:14 | XMS_ITS | Encounter Summary ---
Author Organization [employer] [facility] Address [address] [facility] 7t [place] [address] Care Team Providers Care Tool Dresser Name Role Phone Sue Alicia MD Primary Care Provider [phone] Reason for Visit * Reason Onset Date Comments Med Refill 02/17/2024 Encounter Details Date Type Department Care Team ([facility] Contact Info) Description 02/17/2024 Telephone [facility] 230 [place], [place] [phone] Sue Alicia MD 230 [place], [place] [phone] Med Refill Social History Tobacco Use Types [...] 5 MG tablet To be sent to: [facility] - [place], [place] - [address] [place] [address] documented in this encounter Plan of Treatment Upcoming Encounters Date Type Department Care Team ([facility] st Contact Info) Description 01/04/2025 11:00 AM EST Office Visit [facility] [address] [place] [address] Sue Alicia MD [address] [place] [address] 01/31/2025 9:00 AM EDT Clinical Support [facility] [address] [place] [address] Cookie Alcaraz, RN documented as of this encounter Visit Diagnoses Not on filedocumented in this encounter Additional Health Concerns Assessment Noted Time PHQ-9 Depression Total Score: 19 024 2:37 PM EDT documented as of this encounter Care Teams Tool Dresser Relationship Specialty Start Date End Date Sue Alicia MD 230 [place] [address] PCP - General Family Medicine 08/09/23 documented as of this encounter
--- OUTSIDE RECORDS SUMMARY | 2025-01-02 10:14 | XMS_ITS | Clinical Summary ---
Author Organization [facility] 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); 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> (HCC); Stage 3b chronic kidney disease (HCC) 11/01/2024 Refill [facility] [address] [place] [address] Vilma Real [place] Stage 3 chronic kidney disease, not otherwise specified (HCC) (Primary Dx); Hypertension; Type 2 diabetes mellitus with diabetic chronic kidney disease (HCC); 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> (HCC); Benign essential hypertension 11/01/2024 Refill [facility] [address] [place] [phone] Ben Cummins MD from Last 3 Months Immunizations Name Administration Dates Next Due Influenza Split 07/25/2012 Influenza, Quadrivalent, Pre servative Free 07/23/2021,09/19/2020,07/18/2017,07/25 Influenza, Quadrivalent, Wit h Preservative 08/02/2018,07/23/2016 Influenza, Trivalent, Adjuvanted 08/20/2019 EnerTrac SARS-COV-2 01/21/2021 Pfizer SARS-COV-2 09/23/2021 Pneumococcal Conjugate [...] Visit [facility] [address] [place], [place] [phone] Ben Cummins MD [address] [facility] 204 [place] [address] Health Maintenance Due Date Last [...] ? sample. Estimated Average Glucose 114 mg/dL [facility] Comment: eAG = Estimated average glucose which is %A1C expressed as average glucose, using the formula of the V1K-Yavwetm Average Glucose study (ADAG), Diabetes Care, Vol.31,#8, Aug. 2008 Blood (Blood, Venous) 10/26/2023 9:17 AM EST 10/26/2023 9:17 AM EST us Ben Cummins MD LAB BLOOD ORDERABLES Final Re sult [place] from Last 3 Months or Most Recently Relevant to Health Maintenance Insurance MEDICAID IN MEDICAID IN MEDICARE Care Teams Health Lead Relationship Specialty Start Date End Date Gideon Mccormack PCP - General Internal Medicine 12/30/20
--- OUTSIDE RECORDS SUMMARY | 2025-01-02 10:14 | XMS_ITS | Encounter Summary ---
Author Organization [employer] Address 75 [facility] 7t [place] [address] Care Team Providers Care Head Of Mobile Name Role Phone Sue Alicia MD Primary Care Provider [phone] Reason for Visit * Reason Onset Date Comments Durable Medical Equipment 02/10/2024 Walker and Wheelchair Encounter Details Date Type Department Care Team ([facility] st Contact Info) Description 02/10/2024 Telephone [facility] 230 [place], [place] [phone] Sue Alicia MD 230 [place], [place] [phone] Durable Medical Equipment (Walker and Wheelchair) Social [...] is your housing situation today? I have geogre winters 02/08/[address] you [...] Description 01/04/2025 11:00 AM EST Office Visit [facility] 230 [place] [address] Sue Alicia MD 230 [place] [address] 01/31/2025 9:00 AM EDT Clinical Support [facility] 230 [place] [address] Cookie Alcaraz RN documented as of this encounter Visit Diagnoses Not on filedocumented in this encounter Additional Health Concerns Assessment Noted Time PHQ-9 Depression Total Score: 19 024 2:37 PM EDT documented as of this encounter Care Teams Head Of Mobile Relationship Specialty Start Date End Date Sue Alicia MD 230 [place] [address] PCP - General Family Medicine 08/09/23 documented as of this encounter
--- OUTSIDE RECORDS SUMMARY | 2025-01-02 10:14 | XMS_ITS | Encounter Summary ---
Author Organization [employer] Address [address] [facility] 7t [place] [address] Care Team Providers Care Truck Rental Service Attendant Name Role Phone Sue Alicia MD Primary Care Provider [phone] Reason for Visit * Reason Comments Med Refill Encounter Details Date Type Department Care Team ([facility] st Contact Info) Description 12/11/2024 Refill [facility] 230 [place], [place] [phone] Sue Alicia MD 230 [place], [place] [phone] Chronic low back pain, unspecified back pain [...] 01/04/2025 11:00 AM EST Office Visit [address] [address] Sue Alicia MD [address] [place] [address] 01/31/2025 9:00 AM EDT Clinical Support [address] [address] Cookie Alcaraz, ABHIJIT documented as of this encounter Visit Diagnoses Diagnosis Chronic low back pain, unspecified back pain laterality, unspecified whether sciatica present documented in this encounter Additional Health Concerns Assessment Noted Time PHQ-9 Depression Total Score: 19 024 2:37 PM EDT documented as of this encounter Care Teams Truck Rental Service Attendant Relationship Specialty Start Date End Date Sue Alicia MD [address] [place] [address] PCP - General Family Medicine 08/09/23 documented as of this encounter
--- OUTSIDE RECORDS SUMMARY | 2025-01-02 10:14 | XMS_ITS | Encounter Summary ---
Author Organization [email or web address] Address [address] [facility] [address] 7t [place] [address] Care Team Providers Care Map Clerk Name Role Phone Sue Alicia MD Primary Care Provider [phone] Encounter Details Date Type Department Care Team ([facility] st Contact Info) Description 04/06/2024 Telephone [facility] 230 [place], [place] [phone] Sue Alicia MD 230 [place] [address] Social History Tobacco Use Types Packs/Day Years [...] Description 01/04/2025 11:00 AM EST Office Visit [address] [address] Sue Alicia MD [address] [place] [address] 01/31/2025 9:00 AM EDT Clinical Support [address] [address] Cookie [place], RN documented as of this encounter Visit Diagnoses Not on filedocumented in this encounter Additional Health Concerns Assessment Noted Time PHQ-9 Depression Total Score: 19 024 2:37 PM EDT documented as of this encounter Care Teams Map Clerk Relationship Specialty Start Date End Date Sue Alicia MD [address] [place] [address] PCP - General Family Medicine 08/09/23 documented as of this encounter
--- OUTSIDE RECORDS SUMMARY | 2025-01-02 10:14 | XMS_ITS | Clinical Summary ---
Author Organization [facility] Address [address] [place] [address] Care Team Providers Care Asphalt Tamping Machine Operator Name Role Phone Unavailable Primary Care Provider [...]
--- OUTSIDE RECORDS SUMMARY | 2025-01-02 10:14 | XMS_ITS | Encounter Summary ---
Author Organization [employer] Address 75 [facility] 7t [place] [address] Care Team Providers Care Golf Course Architect Name Role Phone Sue Alicia MD Primary Care Provider [phone] Reason for Visit * Reason Comments Med Refill Encounter Details Date Type Department Care Team ([facility] st Contact Info) Description 01/01/2025 Refill [facility]INE 230 [place], [place] [phone] Sue Alicia MD 230 [place], [place] [phone] Type 2 diabetes mellitus with diabetic chronic kidney disease ([facility]/HCC) Social History Tobacco Use Types Packs/Day Years [...] Description 01/04/2025 11:00 AM EST Office Visit [address] [address] Sue Alicia MD [address] [place] [address] 01/31/2025 9:00 AM EDT Clinical Support [address] [address] Cookie Alcaraz, ABHIJIT documented as of this encounter Visit Diagnoses Diagnosis Type 2 diabetes mellitus with diabetic chronic kidney disease (CMS/HCC) documented in this encounter Additional Health Concerns Assessment Noted Time PHQ-9 Depression Total Score: 19 024 2:37 PM EDT documented as of this encounter Care Teams Golf Course Architect Relationship Specialty Start Date End Date Sue Alicia MD [address] [place] [address] PCP - General Family Medicine 08/09/23 documented as of this encounter
--- OUTSIDE RECORDS SUMMARY | 2025-01-02 10:14 | XMS_ITS | Encounter Summary ---
Author Organization [facility] Address [address] [place] [phone] Phone Care Team Providers Care Oxygen Therapist Name Role Phone Gideon Mccormack Primary Care Provider Unavaila ble Reason for Visit * Reason Comments Presence of systemic lupus erythematosus (SLE) inhibitor Encounter Details Date Type Department Care Team (Latest Contact Info) Description 12/10/2024 3:45 PM EST Office Visit [facility] [address] [place] [address] [place] [address] [place] [phone] Ben Cummins MD [address] [address] Systemic lupus erythematosus-associated antiphospholipid syndrome [...] Salted Snacks such as Crackers Potato chips [place] chips Pretzels Tortilla chips Nuts Popcorn [place] seeds Homemade or low- sodium sauces and [...] Foods such as: TV Dinners Canned raviolis [place] Macaroni & Cheese Spaghetti Frozen prepared foods [...] are 1000 milligrams (mg) in 1gram. For [id number], if your diet prescription is 2 grams [...] Basil: Use with beef, pork, most vegetables. [place]: Use with beef, pork, most vegetables. Geraldine: [...] doctor or dietitian beforeusing and salt substitute. [place] and create your own seasoning containing those spices that you like. If you would like to become a volunteer and find out more about what's happening where you live, contact your local [facility] Aff[facility]. Blood pressure monitoring education: Monitor [...] stone problems. Cont f/u with Rheum at [facility]. The following portions of the patient's chart [...] Visit [facility] [address] [place] [address] Ben Cummins MD [address] [facility] 204 [place] [address] Scheduled Orders Name Type Priority [...] (HCC) documented in this encounter Care Teams Oxygen Therapist Relationship Specialty Start Date End Date Gideon Mccormack PCP - General Internal Medicine 12/30/20 documented as of this encounter
--- OUTSIDE RECORDS SUMMARY | 2025-01-02 10:14 | XMS_ITS | Encounter Summary ---
Author Organization [employer] Address [address] [facility] [address] 7t [place] [address] Care Team Providers Care Power Chisel Operator Name Role Phone Sue Alicia MD Primary Care Provider [phone] Encounter Details Date Type Department Care Team ([facility] st Contact Info) Description 12/31/2024 Telephone [facility] 230 [place], [place] [phone] [place] Social History Tobacco Use [...] Description 01/04/2025 11:00 AM EST Office Visit [address] [address] Sue Alicia MD [address] [place] [address] 01/31/2025 9:00 AM EDT Clinical Support [address] [address] Cookie Alcaraz, ABHIJIT documented as of this encounter Visit Diagnoses Not on filedocumented in this encounter Additional Health Concerns Assessment Noted Time PHQ-9 Depression Total Score: 19 024 2:37 PM EDT documented as of this encounter Care Teams Power Chisel Operator Relationship Specialty Start Date End Date Sue Alicia MD [address] [place] [address] PCP - General Family Medicine 08/09/23 documented as of this encounter
--- OUTSIDE RECORDS SUMMARY | 2025-01-02 10:14 | XMS_ITS | Encounter Summary ---
Author Organization [facility] Address [address] [facility] 7t [place] [address] Care Team Providers Care Hemodialysis Lab Technician Name Role Phone Sue Alicia MD Primary Care Provider [phone] Reason for Visit * Reason Onset Date Comments Med Refill 05/09/2024 Encounter Details Date Type Department Care Team ([facility] st Contact Info) Description 05/09/2024 Telephone [facility] [address] [place], [place] [phone] Sue Alicia MD [address] [place], [place] [phone] Med Refill Social History Tobacco Use Types [...] EDT Script was sent on 05/04/24 to [facility]. * Telephone Encounter - Jamal Linder - 05/09/2024 9:46 AM EDT TC from pt requesting medication refill. Medications needing refill : cyclobenzaprine (Flexeril) 5 MG tablet To be sent to: [facility] documented in this encounter Plan of Treatment Upcoming Encounters Date Type Department Care Team (Late st Contact Info) Description 01/04/2025 11:00 AM EST Office Visit [facility] [address] [place] [address] Sue Alicia MD [address] [place] [address] 01/31/2025 9:00 AM EDT Clinical Support [facility] [address] [place] [address] [place] [address] Cookie Alcaraz, RN documented as of this encounter Visit Diagnoses Not on filedocumented in this encounter Additional Health Concerns Assessment Noted Time PHQ-9 Depression Total Score: 19 024 2:37 PM EDT documented as of this encounter Care Teams Hemodialysis Lab Technician Relationship Specialty Start Date End Date Sue Alicia MD [address] [place] [address] PCP - General Family Medicine 08/09/23 documented as of this encounter
--- OUTSIDE RECORDS SUMMARY | 2025-01-02 10:14 | XMS_ITS | Clinical Summary ---
Author Organization [employer] [facility] Address [address] [facility] 7t [place] [address] Care Team Providers Care Screw Cutter Name Role Phone Sue Alicia MD Primary Care Provider [phone] Allergies Active Allergy Reactions Criticality Noted Date [...] 0.4 ML SUBCUTANEOUSLY EVERY 2 WEEKS DIRECTED 025 Active cyclobenzaprine (Flexeril) 5 MG tabletIndication [...] 28 days. 112 tablet 025 2024 Active Ozempic, 0.25 or 0.5 MG/DOSE, 2 MG/3ML solution pen-injectorIndi cations:Type 2 diabetes mellitus with diabetic chronic kidney disease (CMS/HCC) INJECT 0.5 MG SUBCUTANEOUSLY EVERY 7 DAYS IN THE ABDOMEN, THIGHS, OR UPPER ARM, ROTATE INJECTION SITES. 3 mL 1 025 Active Ozempic, 0.25 or 0.5 MG/DOSE, 2 MG/3ML solution pen-injectorIndi cations:Type 2 diabetes mellitus with diabetic chronic kidney disease (CMS/HCC) INJECT 0.5 MG SUBCUTANEOUSLY EVERY 7 DAYS IN THE ABDOMEN, THIGHS, OR UPPER ARM, ROTATE INJECTION SITES. 3 mL 1 025 2024 Discontinued oxyCODONE-acetam inophen (Percocet) 5-325 MG tabletIndication s:Other [...] Active Problems Problem Noted Date Diagnosed Date longterm current use of opiate analgesic 2024 Overview (11/06/2024): Dx: Rx: Last WEB SITE DEVELOPER agreement: Tier II (visit every 3 months) [...] calcification, right 05/03/2023 History of primary hyperparathyroidism longterm systemic steroid user 05/03/2023 Osteopenia 05/03/2023 Overview [...] disease, without long-term current use of insulin ([facility]) 02/25/2023 Assessment & Plan (06/08/2024 11:55 AM EDT): A1C 5.9 Current regimen: Metformin 1000mg BID; Ozempic 0.5mg Microalbumin: due Lipid panel: ordered Foot exam: 06/04/24 Eye: 02/11/23 [facility]; No diabetic retinopathy or macular degeneration Statin: Atorvastatin 20mg MELLISSA/ARB: Irbesartan 75mg Assessment & Plan (02/08/2024 8:59 PM EDT): A1C 6.7 Current regimen: Metformin 1000mg BID; Victoza injection Microalbumin: due Lipid panel: today Foot exam: Perform next visit Eye: 02/11/23 [facility]; No diabetic retinopathy or [...] Encounters Date Type Department Care Team Description 01/01/2025 Refill [facility] [address] [place] [address] Sue Alicia MD Type 2 diabetes mellitus with diabetic chronic kidney disease ([facility]) 12/31/2024 Telephone [facility] [address] [place] [address] [place] 12/31/2024 Telephone [facility] [address] [place] [address] Sue Alicia MD Prior Authorization (Cyclobenzaprine 5mg) 12/26/2024 Refill [facility] & PEDS [address] [place] [address] Sue Alicia MD Chronic low back pain, unspecified back pain laterality, unspecified whether sciatica present; Other chronic pain 12/19/2024 10:15 AM EST Office Visit [facility] OPTOMET[facility] [address] [place] [address] Presbyopia (Primary Dx) 12/19/2024 Travel 12/11/2024 Refill [facility] MED[facility]INE [address] [place] [address] Sue Alicia MD Chronic low back pain, unspecified back pain laterality, unspecified whether sciatica present 11/30/2024 Refill [facility] [address] [place] [address] Sue Alicia MD Chronic low back pain, unspecified back pain laterality, unspecified whether sciatica present 11/27/2024 Refill [facility] MED & PEDS [address] [place] [address] Sue Alicia MD Other chronic pain 11/21/2024 9:00 AM EST Clinical Support [facility] [address] [place] [address] Cookie Alcaraz, head of science low back pain, unspecified back pain laterality, unspecified whether sciatica present (Primary Dx) 11/21/2024 Telephone [facility] [address] [place] [address] Cookie Alcaraz, RN WEB SITE DEVELOPER Renewal today 11/21/2024 Travel 11/21/[address] [address] Cookie Alcaraz RN Recommend WEB SITE DEVELOPER Tier 3 11/12/[address] [address] Sue Alicia MD Type 2 diabetes mellitus with diabetic chronic kidney disease ([facility]/HCC) 11/07/[address] [address] Sue Alicia MD Appointment Request 11/02/2024 11:30 AM EST Office Visit [facility] [address] [place] [address] Sue Alicia MD Pneumonia due to COVID-19 virus (Primary Dx); Cough, unspecified type; Chronic low back pain, unspecified back pain laterality, unspecified whether sciatica present; longterm current use of opiate analgesic 11/02/2024 Travel 11/01/[address] [address] Sue Alicia MD Nurse Triage 11/01/[address] [address] Sue Alicia MD Chronic low back pain, unspecified back pain laterality, unspecified whether sciatica present 10/22/2024 10:00 AM EST Office Visit [facility] [address] [place] [address] Chaka, Clover, OD Diabetes type 2, no ocular involvement ([facility]/HCC) (Primary Dx); Retinal drusen of both eyes; Pseudophakia of both eyes; 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; Presbyopia 10/22/2024 Refill [facility] [address] [place] [address] Sue Alicia MD Other chronic pain 10/22/2024 Travel 10/22/2024 Refill [facility] MED & PEDS [address] [place] [address] Sue Alicia MD Chronic low back pain, unspecified back pain laterality, unspecified whether sciatica present 10/18/2024 Refill [facility] MED [facility] PEDS [address] [place] [address] Sue Alicia MD Other chronic pain 10/08/2024 Telephone [facility] [address] [place], [place] [phone] Ligia Jimenez RN Results from Last 3 Months Immunizations Name Administration [...] Description 01/04/2025 11:00 AM EST Office Visit [facility] [address] [place] [address] Sue Alicia MD [address] [place] [address] 01/31/2025 9:00 AM EDT Clinical Support [facility] [address] [place] [address] Cookie Alcaraz, RN Health Maintenance Due Date Last Done Comments CT Colonography 1960 Colonoscopy 1960 Colorectal Cancer Screening 1960 FIT DNA/Cologuard 1960 FIT 1960 FOBT 1960 Sigmoidoscopy 1960 RSV Patients and Patients Aged 60 years or older (1 - Risk 60-74 years 1-dose series) 2019 Zoster Vaccines (2 of 2) 05/21/2022 03/26/2022 Lipid Panel 06/10/2023 06/10/2022, 02/11/2021 COVID-19 Vaccine ( - season) 2024 09/23/2021, 01/21/2021 Influenza Vaccine (#1) 2024 , 09/19/2020, 08/20/2019, Additional history exists Depression Monitoring (PHQ-9) 08/09/2024 02/08/2024, 02/08/2024 Diabetes: Hemoglobin A1C 12/05/2024 024, 02/08/2024, 02/25/2023, Additional history exists Alcohol/Substance [...] AM EST Retinal drusen of both eyes BI MAMMOGRAM SCREENING TOMOSYNTHESIS BILATERAL Routine 08/08/2024 [...] 02/29/2024 9:12 AM EDT Cervical cancer screening Z HISTORICAL LIPID PANEL Routine 06/10/2022 10:29 AM EDT [facility] HISTORICAL HEPATITIS A,B,C PROFILE Routine 12/26/2019 12:05 PM EST from Last 3 Months or Most Recently Relevant to Health Maintenance Results * POCT EDMOND-14 Urine Drug Screen (11/21/2024 9:13 AM EST) THC Positive TCA, Urine Positive Oxycodone Screen, Urine Positive Urine Urine specimen obtained by clean catch procedure / Unknown 11/21/2024 9:13 AM EST Cookie Chapman RN - 11/21/2024 9:13 AM EST UTOX cup Lot#[id number] Exp. 07/25/26 Internal Pass Control Sue Alicia MD POINT OF CARE TEST ENTER/EDIT ORDERABLES Final Result * POCT Rapid RSV TROTTER ID NOW (11/02/2024 11:53 AM EST) [facility] RSV Rapid Ag POC Negative Negative QC Media Lot # [id number] Lot# Expiration Date ,026 Swab 11/02/2024 11:5 3 AM EST Sue Alicia MD POINT OF CARE TEST ENTER/EDIT ORDERABLES Final Result * (ABNORMAL) POCT Rapid Covid-19 BinaxNOW (11/02/2024 11:52 AM EST) [facility] Rapid COVID Ag Positive QC Media Lot # [id number] Lot# Expiration Date , Swab 11/02/2024 11:5 2 AM EST Sue Alicia MD POINT OF CARE TEST ENTER/EDIT ORDERABLES Final Result * POCT Rapid Influenza B OSOM (11/02/2024 11:52 AM EST) [facility] Rapid Influenza B Ag Negative Negative, Indeterminate QC Media Lot # [id number] Lot# Expiration Date , Swab 11/02/2024 11:5 2 AM EST Result [facility] Sue Alicia MD POINT OF CARE TEST ENTER/EDIT ORDERABLES Final Result * POCT Rapid Influenza A OSOM (11/02/2024 11:52 AM EST) [facility] Rapid Influenza A Ag Negative Negative, Indeterminate QC Media Lot # [id number] Lot# Expiration Date , Swab Nasopharyngeal structure / Unknown 11/02/2024 11:52 AM EST Sue Alicia MD POINT OF CARE TEST [...] Will monitor at the patient's next exam. us Clover Gibbsadelfo OD OPHTH TOMOGRAPHY Edited * BI Mammogram Screening Tomosynthesis Bilateral (08/08/2024 11:20 AM EDT) Anatomical Region Laterality Modality Breast Bilateral Mammography 08/08/2024 11:2 0 AM EDT Narrative 08/20/2024 6:01 PM EDT ? [facility] ? [address] ?[place] [address] ? Mammography Report ? Signed ? Patient: Lopez,Nicky ?MR#: [id number] ?? 3 ? : 1960 ?Acct:[id number] ? Age/Sex: 63 / F ?ADM Date: 08/08/24 ? Loc: HO.MAMMO ? Attending Dr: Isael Hollis MD ? Ordering Physician: LATRICE FORBES CNM ?Results: 2 ?? Benign Findings ? Date of Service: 08/08/24 ?Follow Up: 1 Year From Orig ?? inal Mammogram ? Procedure(s): MM tomosynthesis screening BI ?? Accession Number(s): [id number] ? cc: Sue Alicia; LATRICE FORBES CNM [...] ??Kim Gaytan DO ??08/20/2024 05:58 PM EDT ? Dictated By: ?Kim Gaytan DO ? Signed By: ?<Electronically signed by Kim Gaytan, DO in OV> ? 08/20/24 1758 ? DD/ 1120 ? TD/TT: 08/08/24 1140 ? Blending Operator: ? Procedure Note Segundo, Gomez - 08/20/2024 [facility] [address] [place] [address] [place] [address] Mammography Report Signed Patient: Aleshia Lopez#: [id number] 3 : 9Acct:[id number] Age/Sex: 63 / FADM Date: 08/08/24 Loc: HO.MAMMO Attending Dr: Isael Hollis MD Ordering Physician: LATRICE FORBESesults: 2 Benign Findings Date of Service: 08/08/24Follow Up: 1 Year From Orig ina Mammogram Procedure(s): MM tomosynthesis screening BI Accession Number(s): [id number] cc: Sue Alicia; LATRICE FORBES CNM EXAMINATION: [...] by Kim Gaytan DO in OV> 08/20/24 1758 DD/ 1120 TD/TT: 08/08/24 1140 Blending Operator: Latrice Forbes CNM IM BI PROCEDURES Edited Result - Final * POCT glycosylated hemoglobin (Hgb A1c) (06/04/2024 3:34 PM EDT) Hemoglobin A1C 5.9 4.0 - 6.0 % QC Media Lot # [id number] Lot# Expiration Date [id number] Blood Capillary blood specimen / Unknown 06/04/2024 3:34 PM EDT Sue Alicia MD POINT OF CARE TEST ENTER/EDIT ORDERABLES Final Result * HPV mRNA E6/E7 w/Reflex to HPV Genotypes 16, 18/45 (02/29/2024 9:12 AM EDT) HPV nRNA E6/E7 Not Detected Not Detected [facility] Comment:Methodology: Transcr iption-Mediated AmplificationThis assay detects E6/E7 viral messenger RNA (mRNA) from 14high-risk HPV types (16,18,31,33,35,39,45,51,52,56,58,59,66,68).Cervical sources are required for HPV testing.If a vaginal source from a patient who has had atotal hysterectomy with removal of cervix wassubmitted, please contact the testing laboratoryfor alternative testing options.For additional information, please refer [email or web address]/faq/[email or web address](This link if provided for information/educational purposes only.)THIS TEST WAS PERFORMED AT:[facility] [place] [id number] RODRIGES MD HPV mRNA E6/E7 [facility] HPV 16 RNA [facility] HPV 18/45 RNA [facility] 02/29/2024 9:12 AM EDT 03/05/2024 8:00 AM EDT Latrice IBANEZ LAB CYTOLOGY ORDERABLES F inal Result [facility] [address] [place] [address] [phone] * Pap Smear (02/29/2024 9:12 AM EDT) Swab Cervix uteri structure / Unknown 02/29/2024 9:12 AM EDT 03/05/2024 8:00 AM EDT Narrative [facility] - 03/27/2024 3:52 PM EDT ----- ------- Name: Nicky Lopez ?Age/Sex: 63/F ? : 1960 Unit#: [id number] ?? Attend Dr: LATRICE FORBES CNM ?Re02/29/24 ?Status: DEP REF ? Location: HO.ASHUTOSHNP ? Disch: ? ----- ------- SPEC : [id number] ? RECD: 03/05/24 ? STATUS: ??SOUT ? REQ NUM: [id number] ? [place]: 02/29/24 ? SUBM DR: LATRICE [...] 66, 68) ?? HPV testing performed by [facility], [place], [place]. ??See reference laboratory ?? portion of the EMR for entire report. ?Clinical Information LMP: Postmenopausal Previous PAP test: 01/2019, NIL/HPV- ? Material Received ?? ThinPrep-Cervical ----- ------- Signed (signature on file) MAC Toro (ASCP) 03/27/24 5271 ? ----- ------- ? END OF REPORT ? us Latrice Herringwilfredo CNM LAB CYTOLOGY ORDERABLES F inal Result [facility] [address] [place] [address] [phone] * (ABNORMAL) LIPID PANEL (06/10/2022 10:29 [...] liver disease. LDL Cholesterol Calculated 92 mg/dl [facility] Comment: Desirable LDL: ? less than 100 mg/dL Near Optimal/Above Optimal LDL: ??110-129 mg/dL Borderline High LDL: ? 130-159 mg/dL High LDL: ?160-189 mg/dL Very High LDL: ? greater than or equal to ?190 mg/dL Triglycerides 109 mg/dL [facility] Comment: Desirable Triglyceride: ? less than 150 mg/dL Borderline High Triglyceride ??150-199 mg/dL High Triglyceride: ?200-499 mg/dL Very High Triglyceride: ? greater than or equal to ? 5OO mg/dL Alanine Aminotransferase 11 0 - 31 U/L [facility] Albumin Level 3.8 3.5 - 5.0 g/dL [facility] Alkaline Phosphatase 49 39 - 117 U[facility] Anion Gap 17 12 - 20 [facility] Aspartate Amino Transferase 15 5 - 31 U/L [facility] Bilirubin Total 0.2 0.0 - [...] >60 [facility] Comment: NOTE: ??For -Iraqi individuals, multiply the result ?by 1210. ?? Chronic Kidney Disease: ??Estimated GFR < [...] LAB SYSTEM 06/10/2022 10:2 9 AM EDT us Isael Hollis MD HISTORICAL/NON ORDERABLE LABS Final Result [facility] [address] * HEPATITIS A,B,C PROFILE (12/26/2019 12:05 [...] HCV infection. 12/26/2019 12:0 5 PM EST us Historical Provider HISTORICAL/NON ORDERABLE LABS Final Result [facility] [address] from Last 3 Months or Most Recently Relevant to Health Maintenance Insurance MEDICARE [facility] Care Teams Screw Cutter Relationship Specialty Start Date End Date Sue Alicia MD [address] [place] [address] [phone] PCP - General Family Medicine 08/09/23
--- OUTSIDE RECORDS SUMMARY | 2025-01-02 10:14 | XMS_ITS | Encounter Summary ---
Author Organization [employer] Address [address] [facility] 7t [place] [address] Care Team Providers Care Paver Operator Name Role Phone Sue Alicia MD Primary Care Provider [phone] Reason for Visit * Reason Comments Med Refill Encounter Details Date Type Department Care Team ([facility] st Contact Info) Description 04/11/2024 Refill [facility] MED & PEDS [address] [place], [place] [phone] Sue Alicia MD [address] [place], [place] [phone] Shortness of breath Social History Tobacco Use [...] [facility] MEDICINE [address] [place] [address] Sue Alicia MD [address] [place] [address] 01/31/2025 9:00 AM EDT Clinical Support [address] [address] Cookie Alcaraz, ABHIJIT documented as of this encounter Visit Diagnoses Diagnosis Shortness of breath documented in this encounter Additional Health Concerns Assessment Noted Time PHQ-9 Depression Total Score: 19 024 2:37 PM EDT documented as of this encounter Care Teams Paver Operator Relationship Specialty Start Date End Date Sue Alicia MD [address] [place] [address] PCP - General Family Medicine 08/09/23 documented as of this encounter
--- OUTSIDE RECORDS SUMMARY | 2025-01-02 10:14 | XMS_ITS | Encounter Summary ---
Author Organization [employer] [facility] Address [address] [facility] 7t [place] [address] Care Team Providers Care Construction Ironworker Helper Name Role Phone Sue Alicia MD Primary Care Provider [phone] Reason for Visit * Reason Onset Date Comments Call Back Request 02/20/2024 Encounter Details Date Type Department Care Team ([facility] Contact Info) Description 02/20/2024 Telephone [facility] MED[facility] [address] [place], [place] [phone] Sue Alicia MD [address] [place], [place] [phone] Call Back Request Social History Tobacco Use [...] Description 01/04/2025 11:00 AM EST Office Visit [address] [address] Sue Alicia MD [address] [place] [address] 01/31/2025 9:00 AM EDT Clinical Support [address] [address] Cookie Alcaraz RN documented as of this encounter Visit Diagnoses Not on filedocumented in this encounter Additional Health Concerns Assessment Noted Time PHQ-9 Depression Total Score: 19 024 2:37 PM EDT documented as of this encounter Care Teams Construction Ironworker Helper Relationship Specialty Start Date End Date Sue Alicia MD [address] [place] [phone] PCP - General Family Medicine 08/09/23 documented as of this encounter
--- OUTSIDE RECORDS SUMMARY | 2025-01-02 10:15 | XMS_ITS | Encounter Summary ---
Author Organization [employer] [facility] Address [address] [facility] 7t [place] [address] Care Team Providers Care Hydrogen Operator Name Role Phone Sue Alicia MD Primary Care Provider [phone] Reason for Visit * Reason Comments Med Refill Encounter Details Date Type Department Care Team ([facility] st Contact Info) Description 08/26/2023 Refill [facility] [address] [place], [place] [phone] Negrita Diaz FNP [address] [place] [address] Other chronic pain Social History Tobacco Use [...] with others, in a hotel, in a [place], living outside on the street, on a [...] Office Visit [facility] MED[facility]INE [address] [place] [phone] Sue Alicia MD [address] [place] [address] 01/31/2025 9:00 AM EDT Clinical Support [facility] [address] [place] [address] Cookie Alcaraz, ABHIJIT documented as of this encounter Visit Diagnoses Diagnosis Other chronic pain documented in this encounter Additional Health Concerns Assessment Noted Time PHQ-9 Depression Total Score: 0 02/26/20 23 9:24 AM EDT documented as of this encounter Care Teams Hydrogen Operator Relationship Specialty Start Date End Date Sue Alicia MD [address] [place] [address] PCP - General Family Medicine 08/09/23 documented as of this encounter
--- OUTSIDE RECORDS SUMMARY | 2025-01-02 10:15 | XMS_ITS | Encounter Summary ---
Author Organization [employer] [facility] Address [address] [facility] 7t [place] [address] Care Team Providers Care Supervisor Acoustical Tile Carpenters Name Role Phone Miranda Ramirez Primary Care Provider [phone] Sue Alicia MD Primary Care Provider [phone] Reason for Visit * Reason Comments Med Refill Encounter Details Date Type Department Care Team ([facility] st Contact Info) Description 08/01/2023 Refill [facility] MEDICINE [address] [place] [address] Miranda Ramirez FNP [address] [place] [address] [place] [address] Social History Tobacco Use Types Packs/Day Years [...] Description 01/04/2025 11:00 AM EST Office Visit [address] [address] Sue Alicia MD [address] [place] [address] 01/31/2025 9:00 AM EDT Clinical Support [address] [address] Cookie Alcaraz, ABHIJIT documented as of this encounter Visit Diagnoses Not on filedocumented in this encounter Additional Health Concerns Assessment Noted Time PHQ-9 Depression Total Score: 0 02/26/20 9:24 AM EDT documented as of this encounter Care Teams Supervisor Acoustical Tile Carpenters Relationship Specialty Start Date End Date Miranda Ramirez FNP PCP - General Family Medicine 12/01/22 08/08/23 Sue Alicia MD [address] [place] [phone] PCP - General Family Medicine 08/09/23 documented as of this encounter
--- OUTSIDE RECORDS SUMMARY | 2025-01-02 10:15 | XMS_ITS | Encounter Summary ---
Author Organization [employer] [facility] Address [address] [facility] 7t [place] [address] Care Team Providers Care Buffer Copper Name Role Phone Sue Alicia MD Primary Care Provider [phone] Reason for Visit * Reason Comments Med Refill Encounter Details Date Type Department Care Team ([facility] Contact Info) Description 10/03/2024 Refill [facility] MEDICINE [address] [place], [place] [phone] Sue Alicia MD [address] [place], [place] [phone] Bronchitis Social History Tobacco Use Types Packs/Day [...] Description 01/04/2025 11:00 AM EST Office Visit [facility] MEDICINE [address] [place] [address] Sue Alicia MD [address] [place] [address] 01/31/2025 9:00 AM EDT Clinical Support [address] [address] Cookie Alcaraz, RN documented as of this encounter Visit Diagnoses Diagnosis Bronchitis Bronchitis, not specified as acute or chronic documented in this encounter Additional Health Concerns Assessment Noted Time PHQ-9 Depression Total Score: 19 024 2:37 PM EDT documented as of this encounter Care Teams Buffer Copper Relationship Specialty Start Date End Date Sue Alicia MD [address] [place] [phone] PCP - General Family Medicine 08/09/23 documented as of this encounter
--- OUTSIDE RECORDS SUMMARY | 2025-01-02 10:15 | XMS_ITS | Encounter Summary ---
Author Organization [employer] Address [address] 7t [place] [address] Care Team Providers Care Client Advisor Name Role Phone Sue Alicia MD Primary Care Provider [phone] Encounter Details Date Type Department Care Team ([facility] st Contact Info) Description 09/17/2024 Orders Only [facility] [address] [place] [address] Sue Alicia MD [address] [place], [place] [phone] Bronchitis (Primary Dx) Social History Tobacco Use [...] Description 01/04/2025 11:00 AM EST Office Visit [facility] [address] [place] [address] Sue Alicia MD [address] [place] [address] 01/31/2025 9:00 AM EDT Clinical Support [address] [address] Cookie Alcaraz, RN documented as of this encounter Visit Diagnoses Diagnosis Bronchitis- Primary Bronchitis, not specified as acute or chronic documented in this encounter Additional Health Concerns Assessment Noted Time PHQ-9 Depression Total Score: 19 024 2:37 PM EDT documented as of this encounter Care Teams Client Advisor Relationship Specialty Start Date End Date Sue Alicia MD [address] [place] [address] PCP - General Family Medicine 08/09/23 documented as of this encounter
--- OUTSIDE RECORDS SUMMARY | 2025-01-02 10:15 | XMS_ITS | Encounter Summary ---
Author Organization [employer] Address [address] [facility] 7t [place] [address] Care Team Providers Care Tire Balancer Name Role Phone Sue Alicia MD Primary Care Provider [phone] Reason for Visit * Reason Comments Med Refill Encounter Details Date Type Department Care Team ([facility] st Contact Info) Description 08/28/2024 Refill [facility] MED & PEDS [address] [place], [place] [phone] Sue Alicia MD 230 [place] [address] Chronic low back pain, unspecified back pain [...] Description 01/04/2025 11:00 AM EST Office Visit [address] [address] Sue Alicia MD [address] [place] [address] 01/31/2025 9:00 AM EDT Clinical Support [address] [address] Cookie Alcaraz, ABHIJIT documented as of this encounter Visit Diagnoses Diagnosis Chronic low back pain, unspecified back pain laterality, unspecified whether sciatica present documented in this encounter Additional Health Concerns Assessment Noted Time PHQ-9 Depression Total Score: 19 024 2:37 PM EDT documented as of this encounter Care Teams Tire Balancer Relationship Specialty Start Date End Date Sue Alicia MD [address] [place] [address] PCP - General Family Medicine 08/09/23 documented as of this encounter
--- OUTSIDE RECORDS SUMMARY | 2025-01-02 10:15 | XMS_ITS | Encounter Summary ---
Author Organization [facility] Address [address] [place] [address] 7t [place] [address] Care Team Providers Care Suspender Cutter Name Role Phone Miranda Ramirez Primary Care Provider [phone] Sue Alicia MD Primary Care Provider [phone] Reason for Visit * Reason Comments Med Refill Encounter Details Date Type Department Care Team (Late Contact Info) Description 07/21/2023 Refill [facility] MEDICINE [address] [place], [place] [phone] Miranda Ramirez FNP [address] [place] [address] Dept [place] [address] Hypothyroidism, unspecified type Social History Tobacco Use [...] Description 01/04/2025 11:00 AM EST Office Visit [facility] [address] [place], [place] [phone] Sue Alicia MD 230 [place] [address] 01/31/2025 9:00 AM EDT Clinical Support [facility] [address] [place] [address] Cookie Alcaraz, RN documented as of this encounter Visit Diagnoses Diagnosis Hypothyroidism, unspecified type documented in this encounter Additional Health Concerns Assessment Noted Time PHQ-9 Depression Total Score: 0 02/26/20 9:24 AM EDT documented as of this encounter Care Teams Suspender Cutter Relationship Specialty Start Date End Date Miranda Ramirez FNP PCP - General Family Medicine 12/01/22 08/08/23 Sue Alicia MD 230 [place] [address] PCP - General Family Medicine 08/09/23 documented as of this encounter
--- OUTSIDE RECORDS SUMMARY | 2025-01-02 10:15 | XMS_ITS | Encounter Summary ---
Author Organization [employer] [facility] [employer] [facility] Address [address] [place] [address] 7t [place] [address] Care Team Providers Care Travel Registered Nurse Icu Name Role Phone Miranda Ramirez Primary Care Provider [phone] Sue Alicia MD Primary Care Provider [phone] Reason for Visit * Reason Comments Med Refill Encounter Details Date Type Department Care Team (Late Contact Info) Description 07/26/2023 Refill [facility] MEDICINE [address] [place] [address] Miranda Ramirez FNP [address] [place] [address] Dept [place] [address] Shortness of breath Social History Tobacco Use [...] Description 01/04/2025 11:00 AM EST Office Visit [facility] MEDICINE [address] [place], [place] [phone] Sue Alicia MD 230 [place] [address] 01/31/2025 9:00 AM EDT Clinical Support [facility] [address] [place] [address] Cookie Alcaraz, RN documented as of this encounter Visit Diagnoses Diagnosis Shortness of breath documented in this encounter Additional Health Concerns Assessment Noted Time PHQ-9 Depression Total Score: 0 02/26/20 23 9:24 AM EDT documented as of this encounter Care Teams Travel Registered Nurse Icu Relationship Specialty Start Date End Date Miranda Ramirez FNP PCP - General Family Medicine 12/01/22 08/08/23 Sue Alicia MD [address] [place] [address] PCP - General Family Medicine 08/09/23 documented as of this encounter
--- OUTSIDE RECORDS SUMMARY | 2025-01-02 10:15 | XMS_ITS | Encounter Summary ---
Author Organization [facility] [employer] [facility] Address [address] [place] [address] [place] [address] Care Team Providers Care Blocker And Polisher Gold Wheel Name Role Phone Miranda Ramirez Primary Care Provider [phone] Sue Alicia MD Primary Care Provider [phone] Reason for Visit * Reason Comments Med Refill Encounter Details Date Type Department Care Team (Late Contact Info) Description 07/25/[address] [facility] MEDICINE [address] [place] [address] Miranda Ramirez FNP [address] [place] [address] Dept [place] [address] Shortness of breath Social History Tobacco Use [...] AM EST Office Visit [facility] MEDICINE [address] [place], [place] [phone] Sue Alicia MD 230 [place] [address] 01/31/2025 9:00 AM EDT Clinical Support [facility] MEDICINE [address] [place] [address] Cookie Alcaraz, RN documented as of this encounter Visit Diagnoses Diagnosis Shortness of breath documented in this encounter Additional Health Concerns Assessment Noted Time PHQ-9 Depression Total Score: 0 02/26/20 23 9:24 AM EDT documented as of this encounter Care Teams Blocker And Polisher Gold Wheel Relationship Specialty Start Date End Date Miranda Ramirez FNP PCP - General Family Medicine 12/01/22 08/08/23 Sue Alicia MD [address] [place] [address] PCP - General Family Medicine 08/09/23 documented as of this encounter
--- OUTSIDE RECORDS SUMMARY | 2025-01-02 10:15 | XMS_ITS | Encounter Summary ---
Author Organization [employer] [facility] Address [address] [facility] 7t [place] [address] Care Team Providers Care Grove Worker Name Role Phone Sue Alicia MD Primary Care Provider [phone] Reason for Visit * Reason Onset Date Comments Prior Authorization 12/31/2024 Cyclobenzapr ine 5mg Encounter Details Date Type Department Care Team ([facility] st Contact Info) Description 12/31/2024 Telephone [facility] MEDICINE 230 [place], [place] [phone] Sue Alicia MD 230 [place], [place] [phone] Prior Authorization (Cyclobenzaprine 5mg) Social History Tobacco [...] Authorization initiated for Cyclobenzaprine 5mg tablets via [employer] on Cover my Meds. Currently awaiting response documented in this encounter Plan of Treatment Upcoming Encounters Date Type Department Care Team (Late st Contact Info) Description 01/04/2025 11:00 AM EST Office Visit [facility] MED[facility]INE [address] [place] [address] Sue Alicia MD [address] [place] [address] 01/31/2025 9:00 AM EDT Clinical Support [address] [address] Cookie Alcaraz RN documented as of this encounter Visit Diagnoses Not on filedocumented in this encounter Additional Health Concerns Assessment Noted Time PHQ-9 Depression Total Score: 19 024 2:37 PM EDT documented as of this encounter Care Teams Grove Worker Relationship Specialty Start Date End Date Sue Alicia MD [address] [place] [address] PCP - General Family Medicine 08/09/23 documented as of this encounter
--- OUTSIDE RECORDS SUMMARY | 2025-01-02 10:15 | XMS_ITS | Encounter Summary ---
Author Organization [employer] Address [address] [facility] 7t [place] [address] Care Team Providers Care Patient Accounts Clerk Name Role Phone Sue Alicia MD Primary Care Provider [phone] Reason for Visit * Reason Onset Date Comments Med Refill 12/26/2024 Encounter Details Date Type Department Care Team ([facility] st Contact Info) Description 12/26/2024 Refill [facility] CHC MED & PEDS [address] [place], [place] [phone] Sue Alicia MD [address] [place] [address] Chronic low back pain, unspecified back pain [...] the past 12 months, has t he [employer], oil or [employer] threatened to shut off services in your [...] Office Visit [facility] MEDICINE [address] [place] [address] Sue Alicia MD [address] [place] [address] 01/31/2025 9:00 AM EDT Clinical Support [address] [address] Cookie Alcaraz RN documented as of this encounter Visit Diagnoses Diagnosis Chronic low back pain, unspecified back pain laterality, unspecified whether sciatica present Other chronic pain documented in this encounter Additional Health Concerns Assessment Noted Time PHQ-9 Depression Total Score: 19 024 2:37 PM EDT documented as of this encounter Care Teams Patient Accounts Clerk Relationship Specialty Start Date End Date Sue Alicia MD [address] [place] [address] PCP - General Family Medicine 08/09/23 documented as of this encounter
== END 2025-01-02 09:45 | disposition home or self-care (01) ==
PROVIDERS: PCP Registered Nurse; Visit Provider Internal Medicine
DX: J45.909 Unspecified asthma, uncomplicated (principal); G47.33 Obstructive sleep apnea (adult) (pediatric); Z99.89 Dependence on other enabling machines and devices
CPT/HCPCS: 99213

== ENCOUNTER → 2025-01-02 09:15 | Outpatient (BNVA) | payer MEDICAID, SELFPAY | PROVIDERS: PCP Registered Nurse; Visit Provider Internal Medicine | DX: G47.33 Obstructive sleep apnea (adult) (pediatric) (principal); J45.909 Unspecified asthma, uncomplicated; Z99.89 Dependence on other enabling machines and devices | CPT/HCPCS: 99212 ==

== ENCOUNTER 2025-01-14 10:24 | Outpatient (REF) | payer MEDICARE, MEDICAID, SELFPAY | END 2025-01-14 10:25 | disposition home or self-care (01) | LOC: HO.LAB 10:24 | PROVIDERS: PCP Registered Nurse; Visit Provider Surgery | DX: R22.2 Localized swelling, mass and lump, trunk (principal); D17.9 Benign lipomatous neoplasm, unspecified | CPT/HCPCS: 11403; 88304 ==

== ENCOUNTER 2025-01-14 10:24 | Outpatient (AMB) | payer MEDICARE, MEDICAID, SELFPAY ==
--- NOTE | 2025-01-14 10:27 | A.OFFVIS_ITS ---
Vital Signs 01/14/25 10:33 Height 5 ft 2 in Weight 138 lb BMI 25.2 BP 92/57 L Blood Pressure Location Lt brachial Position Sitting Pulse 52 Intake Visit Reasons: excision lipoma back Allergies aspirin [ASA] Allergy (Intermediate, Verified 01/14/25 11:07) ITCHY, HOT, AND HEADACHE calcium Allergy (Intermediate, Verified 01/14/25 11:07) Vomiting Penicillins Allergy (Intermediate, Verified 01/14/25 11:07) RASH tofacitinib [Xeljanz] Allergy (Intermediate, Verified 01/14/25 11:07) chest pain, headaches sulfasalazine Allergy (Unknown, Verified 01/14/25 11:07) unknown HPI HPI excision lipoma back: Details: She is here for excision of a lipoma on the back. [facility] Medical History Lipoma On allopurinol therapy Gout Breast calcification, right Long-term use of immunosuppressant medication Positive PHYLLIS (antinuclear antibody) Fibromyalgia History of primary hyperparathyroidism Osteopenia Dyslipidemia Hypothyroidism LONA on CPAP Bronchial asthma Epidermal inclusion cyst Morbid obesity Gout of right foot PHYLLIS positive Seronegative rheumatoid arthritis Diabetes type 2, uncontrolled Surgical History History of surgery Hx of excision of mass History of kidney surgery S/P breast lumpectomy H/O parathyroidectomy Hx of cholecystectomy H/O tubal ligation Family History Daughter History of breast cancer Father Cirrhosis Diabetes Arthritis Mother Arthritis Sister Diabetes Social History Alcohol intake: never Patient Tobacco Use Status: Former Tobacco user Tobacco use type: Cigarette Substance Use Type: Marijuana Female Reproductive History Menstrual Age of Menarche: 11 Physical Exam Vital Signs: Last Vital Signs Pulse 52 01/14/25 10:33 BP 92/57 L 01/14/25 10:33 BMI result Body Mass Index 25.2 Office Procedures Excision [id number] scalp/neck/hands/feet/genitalia 2.1cm-3cm Details: She was in left lateral decubitus position. She was pointing to an area on the right flank near the ribs. This appeared to have a vague subcutaneous mass about 2.2 cm. I infiltrated this area with lidocaine 1%. I made an incision on the skin overlying this with a blade 15. I carried down the incision through the full- thickness of the skin subcutaneous fat. I carefully dissected with Metzenbaum scissors until was able to feel appeared to be a vague subcutaneous mass. I sharply dissected this and this seemed to be fat containing consistent with a lipoma. I circumferentially dissected this and this was delivered. This measured about 2.2 cm I closed the incision with full-thickness nylon 3-0 simple interrupted sutures. The procedure was completed. Dressings were applied She tolerated procedure well. There were no immediate complications. Blood loss about 20 cc. She was given wound care instructions. [id number]-ssroa/arms/legs 2.1-3cm Procedure code (CPT) selection complete Assessment & Plan Assessment & Plan (1) Lipoma: Code(s): D17.9 - Benign lipomatous neoplasm, unspecified Category: Medical Plan: Excision was done. She was given wound care instructions. I will see her in the office for follow up in about 2 weeks to remove the sutures. Coding Level of Care Code Procedure Only Diagnoses Lipoma D17.9 CPT Codes Trunk/Arms/Legs - CPT: 76515-kjoiy/arms/legs 2.1-3cm ([id number]) Scalp/Neck/Hands/Feet/Genetalia - CPT: 28598-Bidpmphm scalp/neck/hands/feet/genitalia 2.1cm-3cm ([id number])
[2025-01-14 10:33] VITALS: BP 92/57; PULSE 52; BMI 25.2
== END 2025-01-14 11:07 | disposition home or self-care (01) ==
LOC: HO.HGS 10:25
PROVIDERS: PCP Registered Nurse; Visit Provider Surgery
DX: D17.1 Benign lipomatous neoplasm of skin and subcutaneous tissue of trunk (principal)
CPT/HCPCS: 11403

== ENCOUNTER 2025-01-21 10:25 | Outpatient (REF) | payer MEDICARE, MEDICAID, SELFPAY ==
[2025-01-21 13:09] LABS: MANUAL DIFF FLAG NO
[2025-01-21 13:17] LABS: Basophils Absolute Auto 0.1 X10*3/uL (0.0-0.2); Basophils Percent Auto 0.5 % (0-2); Eosinophils Absolute Auto 0.3 X10*3/uL (0.0-0.4); Eosinophils Percent Auto 2.8 % (0-4); Hematocrit 38.5 % (37.0-47.0); Hemoglobin 12.5 g/dl (12.0-16.0); Imm Gran Abs Auto 0.05 X10*3/uL (0.00-0.03); Imm Gran Pct Auto 0.5 % (0.0-0.4); Lymphocytes Absolute Auto 1.9 X10*3/uL (1.2-4.9); Lymphocytes Percent Auto 17.6 % (20-40); Mean Corpuscular HGB Conc 32.5 g/dl (31.0-35.0); Mean Corpuscular Hemoglobin 29.8 pg (27.0-33.0); Mean Corpuscular Volume 91.7 fL (80.0-98.0); Mean Platelet Volume 9.6 fL (9.4-12.3); Monocytes Absolute Auto 0.7 X10*3/uL (0.1-1.2); Monocytes Percent Auto 6.9 % (2-11); Neutrophils Absolute Auto 7.5 x10*3/uL (2.0-8.3); Neutrophils Percent Auto 71.7 % (45-73); Platelet Count 327 X10*3/uL (160-400); Red Cell Distribution Width 14.6 % (11.0-16.0); White Blood Count 10.5 X10*3/uL (4.8-10.8)
[2025-01-21 13:26] LABS: Uric Acid 4.5 mg/dL (2.4-5.7)
[2025-01-21 13:29] LABS: Alanine Aminotransferase 20 U/L (0-31); Albumin Level 3.8 g/dL (3.5-5.0); Alkaline Phosphatase 46 U/L (39-117); Anion Gap 12 (12-20); Aspartate Amino Transferase 24 U/L (5-31); Bilirubin Total 0.2 mg/dL (0.0-1.0); Blood Urea Nitrogen 24 mg/dL (9-16); C Reactive Protein 0.15 mg/dL (< or = 0.50); Carbon Dioxide 28 mmol/L (22-29); Chloride 105 mmol/L (96-108); Estimated Glomerular Filt Rate 38; Glucose Random 65 mg/dL (60-115); Potassium 3.8 mmol/L (3.3-5.1); Sodium 141 mmol/L (135-145); Total Protein 7.2 g/dL (6.5-8.0)
[2025-01-21 13:52] LABS: HBS Num1 1.82 mIU/mL (0-7.99); HBc Num1 0.09 S/CO (0.00-0.79); HBsAGNum1 0.24 S/CO (0.00-0.99); Hepatitis A Antibody IgM 0.22 Index (0-0.79); Hepatitis B Core Antibody Nonreactive (Nonreactive); Hepatitis B Surface Antigen Negative (Negative); ~HepC Num1 0.14 S/CO (0.00-0.79); ~Hepatitis A Antibody IgM Nonreactive (Nonreactive); ~Hepatitis B Surface Antibody NONREACTIVE (Nonreactive); ~Hepatitis C Antibody Nonreactive (Nonreactive)
[2025-01-21 13:54] LABS: Erythrocyte Sedimentation Rate 20 MM/HR (0-20)
[2025-01-21 14:09] LABS: Creatinine Urine 35.01 mg/dL; Total Protein Urine Random < 7 mg/dL (<12)
[2025-01-22 11:13] LABS: Complement C3 132 mg/dL (83-193)
[2025-01-22 22:29] LABS: Anti DNA DS Antibody 1 IU/mL
[2025-01-25 16:03] LABS: Vitamin B6 9.2 ng/mL (2.1-21.7); Vitamin D 25-OH, D2 <4 ng/mL; Vitamin D 25-OH, D3 14 ng/mL; Vitamin D 25-OH, Total 14 ng/mL (30-100)
== END 2025-01-21 10:26 | disposition home or self-care (01) ==
LOC: HO.10HDL 10:25
PROVIDERS: Visit Provider Student in an Organized Health Care Education/Training Program
DX: E55.9 Vitamin D deficiency, unspecified (principal); M06.00 Rheumatoid arthritis without rheumatoid factor, unspecified site; M85.80 Other specified disorders of bone density and structure, unspecified site; Z86.39 Personal history of other endocrine, nutritional and metabolic disease; R76.8 Other specified abnormal immunological findings in serum; M79.7 Fibromyalgia; M32.9 Systemic lupus erythematosus, unspecified; Z79.52 Long term (current) use of systemic steroids; M1A.00X0 Idiopathic chronic gout, unspecified site, without tophus (tophi); Z79.899 Other long term (current) drug therapy
CPT/HCPCS: 36415; 80053; 82306; 82570; 84156; 84207; 84550; 85025; 85652; 86140; 86160; 86225; 86704; 86706; 86709; 86803; 87340

== ENCOUNTER 2025-01-24 08:58 | Outpatient (AMB) | payer MEDICARE, MEDICAID, SELFPAY ==
[2025-01-24 09:07] VITALS: BP 100/62; PULSE 56; O2SAT 100; BMI 25.6
--- NOTE | 2025-01-24 09:07 | MHC.OFFVIS ---
Vital Signs 01/24/25 09:07 Height 5 ft 2 in Weight 139 lb 15.896 oz BMI 25.6 BP 100/62 Blood Pressure Location Lt brachial Position Sitting Pulse 56 Pulse Source Pulse Oximeter Pulse Oximetry (%) 100 Oxygen Delivery Method Room Air Intake Visit Reasons: inflammatory arthritis/UCTD on Humira Intake Note: Patient was last seen in the office on 08/01/[address] Costa. She presents today for follow up on osteopenia, lupus and lab review. Accompanied by: Son Allergies aspirin [ASA] Allergy (Intermediate, Verified 01/24/25 09:11) ITCHY, HOT, AND HEADACHE calcium Allergy (Intermediate, Verified 01/24/25 09:11) Vomiting Penicillins Allergy (Intermediate, Verified 01/24/25 09:11) RASH tofacitinib [Xeljanz] Allergy (Intermediate, Verified 01/24/25 09:11) chest pain, headaches sulfasalazine Allergy (Unknown, Verified 01/24/25 09:11) unknown Medication List - Last Reconciled 01/24/25 by Samantha Costa MD adalimumab-aaty (Yuflyma(CF) Autoinjector) 40 mg (0.4 mL) subcut Q2W albuterol sulfate 90 mcg/actuation (ProAir HFA) 2 puffs PO Q6H PRN albuterol sulfate 1.25 mg (3 mL) inhalation Q4-6H PRN 30 days alcohol swabs (Alcohol Prep Pads) USE DIRECTED SIX TIMES DAILY allopurinol 200 mg (2 x 100 mg) PO QPM 90 days aripiprazole (Abilify) 10 mg PO .every 2 days artifi.tears(hypromellose)(PF) 0.3% 1 drp ophthalmic (eye) Q4-6H PRN atorvastatin 20 mg PO DAILY blood sugar diagnostic (FreeStyle Lite Strips) As directed blood-glucose meter (FreeStyle [place] Lite kit) As directed cane As directed docusate sodium (Colace) 100 mg PO BID furosemide 40 mg PO .every 2 days gabapentin 900 mg (3 x 300 mg) PO BEDTIME 30 days hydrocodone-acetaminophen 5-325 mg 1 tab PO Q6H PRN irbesartan 75 mg PO DAILY levothyroxine 75 mcg PO DAILY melatonin 10 mg PO BEDTIME PRN metformin ER 1,000 mg (2 x 500 mg) PO BID metoprolol tartrate 25 mg PO BID naloxone 4 mg/actuation (Narcan) 1 spray intranasal Q2M omeprazole magnesium (Prilosec OTC) 20 mg PO DAILY pen needle, diabetic (Pentips Pen Needle) USE 1 DAILY WITH VICTOZA polyethylene glycol 3350 (Miralax) 17 grams PO DAILY prednisone 5 mg PO DAILY 90 days semaglutide (Ozempic) 1 mg (0.75 mL) subcut QWEEK sennosides (senna) 8.6 mg PO DAILY zolpidem (Ambien) 5 mg PO BEDTIME PRN HPI Comments Details: Patient is a 63 y.o. female with asthma, hypothyroidism, hyperlipidemia, uncontrolled type 2 diabetes, primary hyperparathyroidism status post parathyroidectomy, degenerative disc disease involving the lumbar and cervical spine, seronegative rheumatoid arthritis/undifferentiated connective tissue disease here today for follow up Interval History: Patient last seen 08/01/2024 with me. At that time she felt overall better on Humira with respect to her small joints but continued to complain of back and shoulder pain. Today patient complains of widespread pain and is concerned that she may have lupus again that may be flaring. Recently had lipoma removed from her right upper back. Is following with Nephrology for potential kidney biopsy. Nephrology note on finished at this time unable for review Rheumatologic History: Patient states that she presented in the with joint pain, rash and was diagnosed with lupus by a physician in [place]. She was started on prednisone and medication. 1st notes seen in the [facility] [place] live is from 08/21/2020 at that time she was on leflunomide and prednisone for seronegative inflammatory arthritis/seronegative RA. There were concerns brought in by patient that she has lupus however repeat serologies done here were unremarkable at that time. She then followed up with Dr. Carrillo 03/22/2022 hand that that time the leflunomide was stopped as it was unlikely that she was taking it and she was considered to be in stable condition. She then followed up with us about 2 years later with Jolly Quinonez 11/23/2023. During that visit she stated that she initially saw a doctor [place] in 2012 at that time there was a positive PHYLLIS and positive SOUND EFFECTS TECHNICIAN and he thought she had lupus/undifferentiated connective tissue disease and her symptoms were initially controlled by prednisone. During that October visit she did not recall previously being on hydroxychloroquine, methotrexate, azathioprine, Benlysta or any other medications that are considered steroid sparing for lupus. She has also seen Dr. Reyes and Dr. Zepeda in the past but those records are not currently available. During that October visit Jolly Quinonez thought that she was having a flare of her underlying autoimmune disease and restarted her on leflunomide 10 mg At some point it was thought that the leflunomide was not enough and she was started on Humira Medication History: Xeljanz 2020 for 2-3 doses: stopped due to nausea, headaches and chest pain after 2 doses Actemra ?duration: stopped due to elevated BP Kevzara (Sarilumab): stopped 2/2 extreme fatigue and subjective fluid retention Sulfasalazine: stopped 2/2 GI issues Plaquenil: Stopped 2/2 side effects Leflunomide: 2020 - 2021. Stopped since patient thought to be in remission and she was unlikely taking same Humira started 12/2023 Current Rheumatology Medications: Humira 40 mg SC every other week Prednisone 5 mg daily Gabapentin 900 mg bedtime [facility] Medical History (Updated 01/24/25 @ 09:31 by Samantha Costa MD) Lipoma On allopurinol therapy Gout Breast calcification, right Positive PHYLLIS (antinuclear antibody) Fibromyalgia History of primary hyperparathyroidism Osteopenia Dyslipidemia Hypothyroidism LONA on CPAP Bronchial asthma Epidermal inclusion cyst Morbid obesity Gout of right foot PHYLLIS positive Seronegative rheumatoid arthritis Diabetes type 2, uncontrolled Surgical History History of surgery Hx of excision of mass History of kidney surgery S/P breast lumpectomy H/O parathyroidectomy Hx of cholecystectomy H/O tubal ligation Family History Daughter History of breast cancer Father Cirrhosis Diabetes Arthritis Mother Arthritis Sister Diabetes Social History Alcohol intake: never Patient Tobacco Use Status: Former Tobacco user Tobacco use type: Cigarette Substance Use Type: Marijuana Female Reproductive History Menstrual Age of Menarche: 11 Review of Systems Const Details: Review of Systems Constitutional: Denies fever, chills, weight loss ENT: Denies vision changes, eye pain or eye redness, dental caries, dry mouth GI: Denies nausea, vomiting, diarrhea, abdominal pain, change in BM Pulm: Denies SOB, PEREZ, hemoptysis, wheezing Cards: Denies chest pain, palpitations Skin: Denies Raynaud's, rash, nail changes, photosensitivity, INTERIOR DESIGN FACULTY MEMBER: Denies headaches, weakness, paresthesias, recurrent falls MSK: as per HPI All other systems reviewed and are unremarkable except noted above Physical Exam Vital Signs: Last Vital Signs Pulse 56 01/24/25 09:07 BP 100/62 01/24/25 09:07 Pulse Ox 100 01/24/25 09:07 Oxygen Delivery Method Room Air 01/24/25 09:07 BMI result Body Mass Index 25.6 Vital signs reviewed Physical Examination CONSTITUITIONAL Patient alert and cooperative. Well appearing and in no apparent painful distress HEENT Conjunctiva and sclera clear. ?Pupils equal round and reactive to light. ?No lymphadenopathy. ? CHEST/RESPIRATORY SYSTEM Normal respiratory effort and able to speak in complete sentences. ?Clear to auscultation bilaterally. ?No crackles, rales, rhonchi, wheezes heard. CARDIAC SYSTEM Regular rate and rhythm. ?S1 and S2 heard no murmurs. ?Radial pulses intact bilaterally MSK Hands: ?Patient able to make a fist but has tenderness to palpation of every part of her hands: MCPs, PIPs DIPs the digits of the dorsum of the finger everywhere Wrists: ?Full range of motion at the wrists without pain. ?Tenderness to palpation of the wrist and upper forearm Elbows: Full range of motion without pain. No tenderness, weakness, swelling, increased warmth or erythema. Shoulders: Full range of motion without pain. No tenderness, weakness, swelling, increased warmth or erythema. Hip bursa: Tenderness to palpation Knees: ?Full range of motion. ?No tenderness, swelling, increased warmth or erythema.?No effusion or crepitations Ankles: Full range of motion. ?No tenderness, swelling, increased warmth or erythema.? Feet: ?Negative squeeze test. ?No tenderness to palpation or swelling of the MTPs. Tender points:?Tenderness to palpation of the bilateral trapezius, supraspinatus, greater trochanters, anterior costochondral junctions, bilateral gluteal areas, bilateral suboccipital muscle insertions SKIN Skin intact without rashes. Results Reviewed Results Reviewed: Laboratory Tests 01/21/25 10:35 WBC 10.5 RBC 4.20 Hgb 12.5 Hct 38.5 Plt Count 327 ESR 20 Sodium 141 Potassium 3.8 Chloride 105 Carbon Dioxide 28 BUN 24 H Creatinine 1.39 Uric Acid 4.5 Calcium 9.0 Total Bilirubin 0.2 AST 24 ALT 20 Alkaline Phosphatase 46 C-Reactive Protein 0.15 Total Protein 7.2 Albumin 3.8 Immunology labs 04/11/24 01/21/25 15:34 10:35 PHYLLIS Screen POSITIVE A PHYLLIS Titer 1:1280 H Double Strand DNA Ab 1 Complement C3 78 L 132 Complement C4 18 32 Infectious serologies 11/23/23 01/21/25 15:17 10:35 Hepatitis A IgM Ab Nonreactive Hep Bs Antigen Negative Hep Bs Antibody NONREACTIVE Hep B Core Total Ab Nonreactive Hepatitis C Ab (EIA) Nonreactive TB Test (T-Spot) Com Negative Assessment & Plan Assessment & Plan (1) Seronegative rheumatoid arthritis: Comment: Humira started 12/2023 Recent Leflunomide 20mg daily nausea and vomiting. Tried Xeljanz but it caused nausea, headaches and chest pain after 2 doses so she stopped the medication. Could not tolerate Actemra due to increased blood pressure. Could not tolerate Kevzara due to extreme fatigue and subjective fluid retention. She could not tolderate sulfasalazine. She could not previously take plaquenil because of side effects. Code(s): M06.00 - Rheumatoid arthritis without rheumatoid factor, unspecified site Category: Medical Plan: #Seronegative Inflammatory arthritis vs Arthritis related to UCTD (lupus like) Patient is a 64-year-old woman with inflammatory arthritis here today for follow up. As I have said previously this is a very difficult case to truly get my head around. I inherited this patient from the previous rheumatologists in the practice and they were all treating her as a seronegative rheumatoid arthritis without significant concerns for an additional diagnosis of lupus. On chart review I do see that she had a significantly elevated PHYLLIS but her Wills and her SOUND EFFECTS TECHNICIAN antibodies were negative her SSA/SSB was negative and her double-stranded DNA was also normal. She did have 1 instance of a low complement back in March of 2024 but this was unsustained. To complicate the picture even more she also has pretty significant fibromyalgia which makes it difficult to discern if there is any underlying synovitis. Her inflammatory markers including CRP and ESR that were done 01/21 were normal but patient complains of all of these widespread pains. I think we may need to start over a fresh with this patient to really get to the bottom of what is truly going on with her. Since there is concern that she may have lupus I am going to stop the Humira as it is very well documented that Humira and other TNF medications can worsen underlying lupus by inducing PHYLLIS and double-stranded DNA antibodies. I am went to stop the Humira and have her follow up with me in 1 month's doing blood work couple of days before that visit. I will see if stopping the Humira worsens her disease. In addition to this I will also be re-doing blood work for her including antiphospholipid antibodies. I will also reach out to the patient's career orientation teacher at the patient's request to discuss biopsy. I will say that the patient has a known diabetes and hypertension and so she can have underlying kidney issues from that and not necessarily an autoimmune cause. If the career orientation teacher wants to pursue biopsy I would definitely be on board because it would be very helpful to know if the kidneys show any evidence of lupus to confirm the diagnosis. If there is no lupus in the kidneys this does not rule out lupus but it would give us additional information as to what is going on Plan - Stop Humira - Continue prednisone 5mg - Start plaquenil 200mg bid - RTC 1 month - Labs beforev visit: CBC, CMP, ESR, CRP, C3, C4, dsDNA, UA, UPC, APS labs, PHYLLIS, SSA/SSB, Wills, SOUND EFFECTS TECHNICIAN (2) Fibromyalgia: Code(s): M79.7 - Fibromyalgia Category: Medical Plan: #Fibromyalgia Patient definitely has fibromyalgia complicating her underlying disease. She has several fibromyalgia tender points on examination. Currently on gabapentin 900 mg at night and we will continue this. (3) Gout: Code(s): M10.9 - Gout, unspecified Category: Medical Qualifiers: Chronicity: chronic Gout etiology: idiopathic Gout site: unspecified site Presence of tophus: without tophus Qualified Code(s): M1A.00X0 - Idiopathic chronic gout, unspecified site, without tophus (tophi) Plan: #Gout Currently stable on allopurinol therapy. No recent flares UA at goal (4) Osteopenia: Comment: DEXA 2021. AP Spine -0.2, Left femur neck -1.8, Left femur total 0.1. FRAX 10.8/1.6 DEXA 2023: AP Spine -0.4, Left femur neck -2.0, Left femur total -0.5. FRAX 12.7/2.5 Code(s): M85.80 - Other specified disorders of bone density and structure, unspecified site Category: Medical Plan: #Osteopenia Patient with osteopenia based on 22 DEXA scan. FRAX index not indicative of treatment at this time. Continue vitamin-D supplementation (5) On allopurinol therapy: Code(s): Z79.899 - Other terminal press operator (current) drug therapy Category: Medical Plan: #Long-term Current Use of Allopurinol Risks and benefits of allopurinol discussed with patient Benefits include decreased gout flares, remission of gout and reduction of tophi Risks include allopurinol hypersensitivity syndrome which is a severe cutaneous adverse reaction associated with allopurinol use particularly in patients who are HLA [id number] positive, increased transaminases, GI upset including diarrhea, nausea and vomiting, and other dermatologic manifestations. (6) jail systemic steroid user: Code(s): Z79.52 - intermediate manager (current) use of systemic steroids Category: Medical Plan: #Long-term Use of Steroids Discussed with patient the risks and benefits of steroid for managing the rheumatic condition Benefits include: - Reduced pain, improved mobility, increased participation in activities, and decreased progression of disease Risks include: - GI upset, potential ultrasound worsening or formation (especially in patients > 65 years old), elevated blood pressure/worsening hypertension, elevated blood sugar/worsening diabetes control, worsening of bone density, elevated lipids/worsening triglycerides, cataract formation, weight gain Recommended using proton pump inhibitors (PPIs) for the duration of steroid use to reduce the risk of gastric ulcers and vitamin-D daily to reduce the risk of osteoporosis Labs checked: ?A1c, T spot, hepatitis-B and C serologies Pneumocystis jiroveci prophylaxis: ?Patient with risk factors including steroids greater than 50 mg for more than 30 days, age greater than 60 years, and lung involvement from underlying rheumatic disease requires prophylaxis and will be given so Plan I spent 45 minutes reviewing the record and labs, seeing the patient, discussing the treatment plan and documenting in the medical record Orders: Orders PHYLLIS Reflex Titer and Pattern 1 Month M06.00 - Rheumatoid arthritis without rheumatoid factor, unspecified site, R76.8 - Other specified abnormal immunological findings in serum Sm Sm/SOUND EFFECTS TECHNICIAN Antibodies 1 Month M06.00 - Rheumatoid arthritis without rheumatoid factor, unspecified site, R76.8 - Other specified abnormal immunological findings in serum Comprehensive Met. Panel 1 Month M06.00 - Rheumatoid arthritis without rheumatoid factor, unspecified site, R76.8 - Other specified abnormal immunological findings in serum C Reactive Protein 1 Month M06.00 - Rheumatoid arthritis without rheumatoid factor, unspecified site, R76.8 - Other specified abnormal immunological findings in serum Erythrocyte Sedimentation Rate 1 Month M06.00 - Rheumatoid arthritis without rheumatoid factor, unspecified site, R76.8 - Other specified abnormal immunological findings in serum Hepatitis A,B,C Profile 1 Month M06.00 - Rheumatoid arthritis without rheumatoid factor, unspecified site, R76.8 - Other specified abnormal immunological findings in serum Sjogren's Antibodies 1 Month M06.00 - Rheumatoid arthritis without rheumatoid factor, unspecified site, R76.8 - Other specified abnormal immunological findings in serum Thyroid Stimulating Hormone 1 Month M06.00 - Rheumatoid arthritis without rheumatoid factor, unspecified site, R76.8 - Other specified abnormal immunological findings in serum UA w Microscopic 1 Month M06.00 - Rheumatoid arthritis without rheumatoid factor, unspecified site, R76.8 - Other specified abnormal immunological findings in serum Cardiolipin Antibodies 1 Month M06.00 - Rheumatoid arthritis without rheumatoid factor, unspecified site, R76.8 - Other specified abnormal immunological findings in serum Thyroid Peroxidase Antibodies 1 Month M06.00 - Rheumatoid arthritis without rheumatoid factor, unspecified site, R76.8 - Other specified abnormal immunological findings in serum Anti DNA DS Antibody 1 Month M06.00 - Rheumatoid arthritis without rheumatoid factor, unspecified site, R76.8 - Other specified abnormal immunological findings in serum Complement C3 1 Month M06.00 - Rheumatoid arthritis without rheumatoid factor, unspecified site, R76.8 - Other specified abnormal immunological findings in serum Complement C4 1 Month M06.00 - Rheumatoid arthritis without rheumatoid factor, unspecified site, R76.8 - Other specified abnormal immunological findings in serum Complete Blood Count Auto Diff 1 Month M06.00 - Rheumatoid arthritis without rheumatoid factor, unspecified site, R76.8 - Other specified abnormal immunological findings in serum Uric Acid 1 Month M06.00 - Rheumatoid arthritis without rheumatoid factor, unspecified site, R76.8 - Other specified abnormal immunological findings in serum Protein Creatinine Ratio, Ur 1 Month M06.00 - Rheumatoid arthritis without rheumatoid factor, unspecified site, R76.8 - Other specified abnormal immunological findings in serum Beta-2 Glycoprotein Antibody 1 Month M06.00 - Rheumatoid arthritis without rheumatoid factor, unspecified site, R76.8 - Other specified abnormal immunological findings in serum Lupus Anticoagulant Panel 1 Month M06.00 - Rheumatoid arthritis without rheumatoid factor, unspecified site, R76.8 - Other specified abnormal immunological findings in serum Thyroglobulin Antibodies 1 Month M06.00 - Rheumatoid arthritis without rheumatoid factor, unspecified site, R76.8 - Other specified abnormal immunological findings in serum Medications: New hydroxychloroquine (Plaquenil) 200 mg PO BID 180 tabs 1RF M35.9 - Systemic involvement of connective tissue, unspecified Discontinued adalimumab-aaty (Yuflyma(CF) Autoinjector) Discontinued Reason: Doctor's Order 40 mg (0.4 mL) subcut Q2W 2 ea 5RF M06.00 - Rheumatoid arthritis without rheumatoid factor, unspecified site Coding Level of Care Code Est Pt Level 5 (84166) Complex EM visit Add On G2211 Diagnoses Seronegative rheumatoid arthritis M06.00 Fibromyalgia M79.7 Idiopathic chronic gout without tophus, unspecified site M1A.00X0 Chronicity: chronic Gout etiology: idiopathic Gout site: unspecified site Presence of tophus: without tophus Osteopenia M85.80 On allopurinol therapy Z79.899 intermediate manager systemic steroid user Z79.52
== END 2025-01-24 10:09 | disposition home or self-care (01) ==
LOC: HO.RHE 08:59
PROVIDERS: Visit Provider Student in an Organized Health Care Education/Training Program
DX: M06.09 Rheumatoid arthritis without rheumatoid factor, multiple sites (principal); M79.7 Fibromyalgia; M1A.00X0 Idiopathic chronic gout, unspecified site, without tophus (tophi); M85.80 Other specified disorders of bone density and structure, unspecified site; Z79.899 Other long term (current) drug therapy; Z79.52 Long term (current) use of systemic steroids
CPT/HCPCS: 99215; G2211

== ENCOUNTER → 2025-01-24 08:58 | Outpatient (BNVA) | payer MEDICARE, MEDICAID, SELFPAY | PROVIDERS: Visit Provider Student in an Organized Health Care Education/Training Program | DX: M06.00 Rheumatoid arthritis without rheumatoid factor, unspecified site (principal); M79.7 Fibromyalgia; M1A.00X0 Idiopathic chronic gout, unspecified site, without tophus (tophi); M85.80 Other specified disorders of bone density and structure, unspecified site; Z79.52 Long term (current) use of systemic steroids; Z79.899 Other long term (current) drug therapy | CPT/HCPCS: 99212 ==

== ENCOUNTER 2025-01-30 09:58 | Outpatient (AMB) | payer MEDICARE, MEDICAID, SELFPAY ==
--- NOTE | 2025-01-30 10:36 | MHC.OFFVIS ---
Vital Signs 01/30/25 10:44 Height 5 ft 2 in Weight 139 lb 15.896 oz BMI 25.6 BP 110/62 Blood Pressure Location Lt brachial Position Sitting Intake Visit Reasons: s/p lipoma Intake Note: Patient is seen in office for post op assessment post removal of lipoma. Pt c/o: sutures removed at visit, area is bruised, skin is dry Home Mortgage Disclosure Act Specialist Required: No Accompanied by: Self / Same As Patient Allergies aspirin [ASA] Allergy (Intermediate, Verified 01/24/25 09:11) ITCHY, HOT, AND HEADACHE calcium Allergy (Intermediate, Verified 01/24/25 09:11) Vomiting Penicillins Allergy (Intermediate, Verified 01/24/25 09:11) RASH tofacitinib [Xeljanz] Allergy (Intermediate, Verified 01/24/25 09:11) chest pain, headaches sulfasalazine Allergy (Unknown, Verified 01/24/25 09:11) unknown HPI HPI s/p lipoma: Details: She underwent excision of a lipoma from the right flank area under local anesthesia large January 15. She tolerated procedure well and currently denies complaints. [facility] Medical History Lipoma On allopurinol therapy Gout Breast calcification, right Positive PHYLLIS (antinuclear antibody) Fibromyalgia History of primary hyperparathyroidism Osteopenia Dyslipidemia Hypothyroidism LONA on CPAP Bronchial asthma Epidermal inclusion cyst Morbid obesity Gout of right foot PHYLLIS positive Seronegative rheumatoid arthritis Diabetes type 2, uncontrolled Surgical History History of surgery Hx of excision of mass History of kidney surgery S/P breast lumpectomy H/O parathyroidectomy Hx of cholecystectomy H/O tubal ligation Family History Daughter History of breast cancer Father Cirrhosis Diabetes Arthritis Mother Arthritis Sister Diabetes Social History Alcohol intake: never Patient Tobacco Use Status: Former Tobacco user Tobacco use type: Cigarette Substance Use Type: Marijuana Female Reproductive History Menstrual Age of Menarche: 11 Review of Systems Const Denies chills and Denies fever(s) Physical Exam Vital Signs: Last Vital Signs BP 110/62 01/30/25 10:44 BMI result Body Mass Index 25.6 Const General: comfortable and no acute distress Back/Spine/Pelvis Other: Excision site clean and dry and well healed Assessment & Plan Assessment & Plan (1) Lipoma: Code(s): D17.9 - Benign lipomatous neoplasm, unspecified Category: Medical Plan: Status post excision of lipoma. Her incision is well healed. Her sutures were removed. She can follow up on a p.r.n. basis. She complains of constipation so I sent her prescription for Metamucil. Coding Level of Care Code Global (64636) Diagnoses Lipoma D17.9
[2025-01-30 10:44] VITALS: BP 110/62; BMI 25.6
--- OUTSIDE RECORDS SUMMARY | 2025-01-30 11:26 | XMS_ITS | Clinical Summary ---
Author Organization [facility] 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) (Primary Dx); 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> (HCC); Stage 3b chronic kidney disease (HCC) 11/01/2024 Refill [facility] [address] [place] [address] Vilma Real [place] Stage 3 chronic kidney disease, not otherwise specified (HCC) (Primary Dx); Hypertension; Type 2 diabetes mellitus with diabetic chronic kidney disease (HCC); 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> (HCC); Benign essential hypertension 11/01/2024 Refill [facility] [address] [place] [phone] Ben Cummins MD from Last 3 Months Immunizations Name Administration Dates Next Due Influenza Split 07/25/2012 Influenza, Quadrivalent, Pre servative Free 07/23/2021,09/19/2020,07/18/2017,07/25 Influenza, Quadrivalent, Wit h Preservative 08/02/2018,07/23/2016 Influenza, Trivalent, Adjuvanted 08/20/2019 [employer] SARS-COV-2 01/21/2021 Pfizer SARS-COV-2 09/23/2021 Pneumococcal Conjugate [...] Visit [facility] [address] [place] [address] [place], [place] [phone] Ben Cummins MD [address] [facility] [address] [place] [address] Health Maintenance Due Date Last [...] ? sample. Estimated Average Glucose 114 mg/dL [facility] Comment: eAG = Estimated average glucose which is %A1C expressed as average glucose, using the formula of the [id number] Average Glucose study (ADAG), Diabetes Care, Vol.31,#8, Aug. 2008 Blood (Blood, Venous) 10/26/2023 9:17 AM EST 10/26/2023 9:17 AM EST us Ben Cummins MD LAB BLOOD ORDERABLES Final Re sult [facility] from Last 3 Months or Most Recently Relevant to Health [place] Care Teams Manager Fitness Relationship Specialty Start Date End Date Gideon Mccormack PCP - General Internal Medicine 12/30/20
--- OUTSIDE RECORDS SUMMARY | 2025-01-30 11:26 | XMS_ITS | Encounter Summary ---
Author Organization [employer] [facility] Address [address] [place] [address] 7[address] [place] [address] Care Team Providers Care Tilting Head Band Sawyer Name Role Phone Miranda Ramirez Primary Care Provider [phone] Sue Alicia MD Primary Care Provider [phone] Reason for Visit * Reason Comments Med Refill Encounter Details Date Type Department Care Team ([facility] Contact Info) Description 07/26/2023 Refill [facility] [address] [place] [phone] Miranda Ramirez FNP [address] [place] [address] Dept [place] [address] Shortness of breath Social History Tobacco Use [...] Upcoming Encounters Date Type Department Care Team ([facility] Contact Info) Description 04/01/2025 10:30 AM EDT Clinical Support [facility] [address] [place] [phone] Cookie Alcaraz RN 04/19/2025 11:15 AM EDT Office Visit [facility] [address] [place] [address] Sue Alicia MD [address] [place] [address] documented as of this encounter Visit Diagnoses Diagnosis Shortness of breath documented in this encounter Additional Health Concerns Assessment Noted Time PHQ-9 Depression Total Score: 0 02/26/20 9:24 AM EDT documented as of this encounter Care Teams Tilting Head Band Sawyer Relationship Specialty Start Date End Date Miranda Ramirez FNP PCP - General Family Medicine 12/01/22 08/08/23 Sue Alicia MD [address] [place] [phone] PCP - General Family Medicine 08/09/23 documented as of this encounter
--- OUTSIDE RECORDS SUMMARY | 2025-01-30 11:26 | XMS_ITS | Encounter Summary ---
Author Organization [employer] Address [address] [facility] 7t [place] [address] Care Team Providers Care Biofuels Plant Operations Engineer Name Role Phone Sue Alicia MD Primary Care Provider [phone] Reason for Visit * Reason Comments Med Refill Encounter Details Date Type Department Care Team ([facility] st Contact Info) Description 10/03/2024 Refill [facility] [address] [place], [place] [phone] Sue Alicia MD [address] [place], [place] [phone] Chronic low back pain, unspecified back pain [...] Care Team (Late st Contact Info) Description 04/01/2025 10:30 AM EDT Clinical Support [facility] [address] [place] [phone] Cookie Alcaraz RN 04/19/2025 11:15 AM EDT Office Visit [facility] [address] [place] [phone] Sue Alicia MD [address] [place] [phone] documented as of this encounter Visit Diagnoses Diagnosis Chronic low back pain, unspecified back pain laterality, unspecified whether sciatica present documented in this encounter Additional Health Concerns Assessment Noted Time PHQ-9 Depression Total Score: 19 024 2:37 PM EDT documented as of this encounter Care Teams Biofuels Plant Operations Engineer Relationship Specialty Start Date End Date Sue Alicia MD [address] [place] [phone] PCP - General Family Medicine 08/09/23 documented as of this encounter
--- OUTSIDE RECORDS SUMMARY | 2025-01-30 11:26 | XMS_ITS | Encounter Summary ---
Author Organization [employer] Address [address] [facility] [address] [place] [address] Care Team Providers Care Unattended Ground Sensor Specialist Name Role Phone Sue Alicia MD Primary Care Provider [phone] Encounter Details Date Type Department Care Team ([facility] st Contact Info) Description 04/06/2024 Telephone [facility] [address] [place], [place] [phone] Sue Alicia MD [address] [place] [address] Social History Tobacco Use Types Packs/Day Years [...] Description 04/01/2025 10:30 AM EDT Clinical Support [facility] [address] [place] [phone] Cookie Alcaraz RN 04/19/2025 11:15 AM EDT Office Visit [facility] [address] [place] [phone] Sue Alicia MD [address] [place] [phone] documented as of this encounter Visit Diagnoses Not on filedocumented in this encounter Additional Health Concerns Assessment Noted Time PHQ-9 Depression Total Score: 19 024 2:37 PM EDT documented as of this encounter Care Teams Unattended Ground Sensor Specialist Relationship Specialty Start Date End Date Sue Alicia MD [address] [place] [phone] PCP - General Family Medicine 08/09/23 documented as of this encounter
--- OUTSIDE RECORDS SUMMARY | 2025-01-30 11:26 | XMS_ITS | Clinical Summary ---
Author Organization [facility] Address [address] [place] [address] Care Team Providers Care Informatics Analyst Name Role Phone Unavailable Primary Care Provider [...] 2024 Falls Risk Assessment 2024 RSV Immunization Adult Patie nts (1 - 1-dose 75+ series) 2034 HIB [...]
--- OUTSIDE RECORDS SUMMARY | 2025-01-30 11:26 | XMS_ITS | Encounter Summary ---
Author Organization [employer] [facility] Address [address] [facility] 7t [place] [address] Care Team Providers Care Security Clerk Name Role Phone Sue Alicia MD Primary Care Provider [phone] Reason for Visit * Reason Onset Date [...] (Late st Contact Info) Description 02/06/2024 Telephone [facility] [address] [place], [place] [phone] Sue Alicia MD [address] [place], [place] [phone] Letter for Housing (I called to get [...] Description 04/01/2025 10:30 AM EDT Clinical Support [facility] [address] [place] [phone] Cookie Alcaraz RN 04/19/2025 11:15 AM EDT Office Visit [facility] [address] [place] [phone] Sue Alicia MD [address] [place] [phone] documented as of this encounter Visit Diagnoses Not on filedocumented in this encounter Additional Health Concerns Assessment Noted Time PHQ-9 Depression Total Score: 0 02/26/20 23 9:24 AM EDT documented as of this encounter Care Teams Security Clerk Relationship Specialty Start Date End Date Sue Alicia MD [address] [place] [phone] PCP - General Family Medicine 08/09/23 documented as of this encounter
--- OUTSIDE RECORDS SUMMARY | 2025-01-30 11:26 | XMS_ITS | Clinical Summary ---
Author Organization [facility] Address [address] 7[address] [place] [address] Care Team Providers Care Aix System Administrator Name Role Phone Sue Alicia MD Primary Care Provider [phone] Allergies Active Allergy Reactions Criticality Noted Date [...] EVERY MORNING 90 tablet 3 024 Active levothyroxine (Synthroid, Levoxyl) 75 MCG tabletIndication [...] ARM, ROTATE INJECTION SITES. 3 mL 1 Active cyclobenzaprine (Flexeril) 5 MG tabletIndication s:Chronic low back pain, unspecified back pain laterality, unspecified whether sciatica present TAKE 1 TABLET BY MOUTH THREE TIMES DAILY IN THE MORNING, AT NOON, AND AT BEDTIME NEEDED FOR MUSCLE SPASMS 40 tablet 025 Active [...] SITES. 3 mL 1 025 2024 Discontinued cyclobenzaprine (Flexeril) 5 MG tabletIndication s:Chronic low back pain, unspecified back pain laterality, unspecified whether sciatica present TAKE 1 TABLET BY MOUTH THREE TIMES DAILY IN THE MORNING, AT NOON, AND AT BEDTIME FOR MUSCLE SPASMS 40 tablet 025 2024 Discontinued oxyCODONE-acetam inophen (Percocet) 5-325 MG tabletIndication s:Other chronic pain Take 1 tablet by mouth every 6 (six) hours if needed for severe pain for up to 28 days. 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) 02/25/2023 Assessment & Plan (06/08/2024 11:55 AM EDT): A1C 5.9 Current regimen: Metformin 1000mg BID; Ozempic 0.5mg Microalbumin: due Lipid panel: ordered Foot exam: 06/04/24 Eye: 02/11/23 [facility]; No diabetic retinopathy or macular degeneration Statin: Atorvastatin 20mg MELLISSA/ARB: Irbesartan 75mg Assessment & Plan (02/08/2024 8:59 PM EDT): A1C 6.7 Current regimen: Metformin 1000mg BID; Victoza injection Microalbumin: due Lipid panel: today Foot exam: Perform next visit Eye: 02/11/23 [facility]; No diabetic retinopathy or [...] Encounters Date Type Department Care Team Description 01/24/2025 Telephone [facility] MEDICINE [address] [place] [address] Sue Alicia MD 01/22/2025 Refill [facility] PEDS [address] [place] [address] Sue Alicia MD Other chronic pain 01/16/2025 Refill [facility] [address] [place] [address] uSe Alicia MD Chronic low back pain, unspecified back pain laterality, unspecified whether sciatica present 01/15/2025 Telephone [facility] MEDICINE [address] [place] [address] Sue Alicia MD Appointment Request 01/14/2025 Orders Only GENERIC EXTERNAL DATA DEPARTMENT Provider, Generic External Data 01/08/2025 Telephone [facility]INE [address] [place] [address] Sue Alicia MD Appointment Request 01/01/2025 Refill [facility] [address] [place] [address] Sue Alicia MD Type 2 diabetes mellitus with diabetic chronic kidney disease ([facility]) 12/31/2024 Telephone [facility] [address] [place] [address] [place] 12/31/2024 Telephone [facility]INE [address] [place] [address] Sue Alicia MD Prior Authorization (Cyclobenzaprine 5mg) 12/26/2024 Refill [facility] [address] [place] [address] Sue Alicia MD Chronic low back pain, unspecified back pain laterality, unspecified whether sciatica present; Other chronic pain 12/19/2024 10:15 AM EST Office Visit [facility] OPTOMETRY [address] [place] [address] Presbyopia (Primary Dx) 12/19/2024 Travel 12/11/2024 Refill [facility] MEDICINE [address] [place] [address] Sue Alicia MD Chronic low back pain, unspecified back pain laterality, unspecified whether sciatica present 11/30/2024 Refill [facility] MEDICINE [address] [place] [address] Sue Alicia MD Chronic low back pain, unspecified back pain laterality, unspecified whether sciatica present 11/27/2024 Refill [facility] PEDS [address] [place], [place] [phone] Sue Alicia MD Other chronic pain 11/21/2024 9:00 AM EST Clinical Support [facility] MEDICINE [address] [place] [phone] Cookie Alcaraz RN Chronic low back pain, unspecified back pain laterality, unspecified whether sciatica present (Primary Dx) 11/21/2024 Telephone [facility] MEDICINE [address] [place] [phone] Cookie Alcaraz, RN MEDICAL INSURANCE CLAIMS SPECIALIST Renewal today 11/21/2024 Travel 11/21/2024 Telephone [facility] MED[facility]INE [address] [place] [phone] Cookie Alcaraz, RN Recommend MEDICAL INSURANCE CLAIMS SPECIALIST Tier 3 11/12/2024 Refill [facility] MEDICINE [address] [place] [phone] Sue Alicia MD Type 2 diabetes mellitus with diabetic chronic kidney disease ([facility]) 11/07/2024 Telephone [facility] MEDICINE [address] [place] [address] Sue Alicia MD Appointment Request 11/02/2024 11:30 AM EST Office Visit [facility] MEDICINE [address] [place] [address] Sue Alicia MD Pneumonia due to COVID-19 virus (Primary Dx); Cough, unspecified type; Chronic low back pain, unspecified back pain laterality, unspecified whether sciatica present; prison current use of opiate analgesic 11/02/2024 Travel 11/01/2024 Telephone [facility] MEDICINE [address] [place] [address] Sue Alicia MD Nurse Triage 11/01/2024 Refill [facility] MEDICINE [address] [place] [address] Sue Alicia MD Chronic low back pain, unspecified back pain laterality, unspecified whether sciatica present from Last 3 Months Immunizations Name Administration Dates Next Due Influenza injectable quadriv alent IIV4 with preservative 08/20/2019,08/02/2018,07/23/2016 Influenza injectable quadriv alent preservative free 07/23/2021,09/19/2020,07/26/2018,07/18,07/25/2015 Influenza, IIV3, injectable 06/27/2014 Influenza, Split (incl. christophe fied surface antigen) 07/25/2012 Influenza, trivalent, adjuvanted 08/20/2019 Probiodrug SARS-CoV-2 Vaccination 01/21/2021 Pfizer Covid-19 Vaccine 12+ [...] Description 04/01/2025 10:30 AM EDT Clinical Support [facility] MED[facility]INE [address] [place] [phone] Cookie Alcaraz RN 04/19/2025 11:15 AM EDT Office Visit [facility] MEDICINE [address] [place] [phone] Sue Alicia MD [address] [place] [address] Health Maintenance Due Date Last Done Comments [...] Procedure Name Priority Date/Time Associated Diagnosis Comments GROSS AND MICROSCOPIC LEVEL 3 Routine 01/14/2025 10:30 AM EDT POCT EDMOND-14 URINE DRUG SCREEN Routine 11/21/2024 [...] 11/02/2024 11:52 AM EST Cough, unspecified type BI MAMMOGRAM SCREENING TOMOSYNTHESIS BILATERAL Routine 08/08/2024 [...] 02/29/2024 9:12 AM EDT Cervical cancer screening SINCERE HISTORICAL LIPID PANEL Routine 06/10/2022 10:29 AM EDT EVGENY HISTORICAL HEPATITIS A,B,C PROFILE Routine 12/26/2019 12:05 PM EST from Last 3 Months or Most Recently Relevant to Health Maintenance Results * Gross and Microscopic Level 3 (01/14/2025 10:30 AM EDT) 01/14/2025 10:3 0 AM EDT 01/15/2025 8:10 AM EDT [facility] LABS - 01/17/2025 10:39 AM EDT ----- ------- Name: Nicky Lopez ?Age/Sex: 64/F ? : 1960 Unit#: [id number] ?? Attend Dr: Agustín Real MD ?Re01/14/25 ?Status: DEP REF ? Location: .LAB ?Disch: ? ----- ------- SPEC : [id number] ? RECD: 01/15/25 ? STATUS: ??SOUT ? REQ NUM: [id number] ? [place]: 01/14/25-0 ? SUBM DR: Agustín Real MD ? ENTERED: ??01/15/25 ?SP TYPE: Surgical ? OTHR DR: Miranda Ramirez AREA LOSS PREVENTION MANAGER ? ORDERED: ??Gross Micro L3 ? Diagnosis ?? Soft tissue, back, excision: ??Mature lobulated adipose tissue with admixed variably-sized ?? vessels and skeletal muscle; no features of malignancy identified. ??See comment. ? Comment: The findings suggest a lipoma with skeletal muscle (possibly intramuscular) and ?? elements of an arteriovenous malformation; a hamartoma is also a diagnostic possibility. ?Clinical History Lipoma of the back ?Microscopic Description Microscopic sections reviewed. ? Material Received ?? Lipoma of the back ? Gross Description Received in formalin labeled ?lipoma of the back? are 2 shaggy, rubbery and firm, be, yellow-brown lobular portions of adipose tissue measuring 2.0 and 2.5 cm in greatest dimension and aggregating 3.5 x 2.5 x 1.5-2.0 cm. ??Due to the fragmented nature in which the specimen is received the margins can not be evaluated. ??The peripheral edges of the largest portion of tissue are marked with blue ink and the specimen is serially sectioned to reveal predominantly homogeneous winn-yellow lobular fat with focally fleshy rubbery, firm be and hemorrhagic be-brown foci. ??The smaller portion of tissue is sectioned to reveal focally firm, be-yellow and be-brown adipose tissue. ??Each portion of tissue is sectioned and entirely submitted in cassettes A1-A5 and A6-A7. ??CEDS This case was reviewed intradepartmentally. Copies To: ?? Agustín Real MD ?? [facility] ?? [address] ?? [place] [address] ?? [phone] ? CONTINUED ON NEXT PAGE ----- ------- Name: Nicky Lopez ?Age/Sex: 64/F ? : 1960 Unit#: [id number] ?? Attend Dr: Agustín Real MD ?Re01/14/25 ?Status: DEP REF ? [facility] ?Disch: ? ----- ------- SPEC : [id number] ? RECD: 01/15/25 ? STATUS: ??SOUT ? REQ NUM: [id number] ? [place]: 01/14/25-0 ? SUBM DR: Agustín Real MD ? ENTERED: ??01/15/25 ?SP TYPE: Surgical ? OTHR DR: Miranda Ramirez AREA LOSS PREVENTION MANAGER ? ORDERED: ??Gross Micro L3 ? Copies To: ??(Continued) ?? Miranda Ramirez AREA LOSS PREVENTION MANAGER ?? [address] ?? [place] [address] ?? [phone] ----- ------- Signed (signature on file) Humphrey Cedeño MD 01/17/25 1039 ? ----- ------- ? END OF REPORT ? Generic External Data Provider LAB CYTOLOGY NANCY MURCIA Final Result [facility] [address] [place] [address] [phone] * POCT EDMOND-14 Urine Drug Screen (11/21/2024 9:13 AM EST) [facility] THC Positive TCA, Urine Positive Oxycodone Screen, Urine Positive Urine Urine specimen obtained by clean catch procedure / Unknown 11/21/2024 9:13 AM EST Cookie Chapman, RN - 11/21/2024 9:13 AM EST UTOX cup Lot#[id number] Exp. 07/25/26 Internal Pass Control Sue Alicia MD POINT OF CARE TEST ENTER/EDIT ORDERABLES Final Result * POCT Rapid RSV TROTTER ID NOW (11/02/2024 11:53 AM EST) [facility] RSV Rapid Ag POC Negative Negative QC Media Lot # [id number] Lot# Expiration Date [id number] Swab 11/02/2024 11:5 3 AM EST Sue Alicia MD POINT OF CARE TEST ENTER/EDIT ORDERABLES Final Result * (ABNORMAL) POCT Rapid Covid-19 BinaxNOW (11/02/2024 11:52 AM EST) Rapid COVID Ag Positive QC Media Lot # [id number] Lot# Expiration Date , Swab 11/02/2024 11:5 2 AM EST Sue Alicia MD POINT OF CARE TEST ENTER/EDIT ORDERABLES Final Result * POCT Rapid Influenza B OSOM (11/02/2024 11:52 AM EST) [facility] Rapid Influenza B Ag Negative Negative, Indeterminate QC Media Lot # [id number] Lot# Expiration Date , Swab 11/02/2024 11:5 2 AM EST Sue Alicia MD POINT OF CARE TEST ENTER/EDIT ORDERABLES Final Result * POCT Rapid Influenza A OSOM (11/02/2024 11:52 AM EST) [facility] Rapid Influenza A Ag Negative Negative, Indeterminate QC Media Lot # [id number] Lot# Expiration Date , Swab Nasopharyngeal structure / Unknown 11/02/2024 11:52 AM EST Sue Alicia MD POINT OF CARE TEST ENTER/EDIT ORDERABLES Final Result * BI Mammogram Screening Tomosynthesis Bilateral (08/08/2024 11:20 AM EDT) Anatomical Region Laterality Modality Breast Bilateral Mammography 08/08/2024 11:2 0 AM EDT Narrative 08/20/2024 6:01 PM EDT ? [facility] ? [address] ?[place] [address] ? Mammography Report ? Signed ? Patient: Lopez,Nicky ?MR#: [id number] ?? 3 ? : 1960 ?Acct:[id number] ? Age/Sex: 63 / F ?ADM Date: 08/08/24 ? Loc: HO.MAMMO ? Attending Dr: Isael Hollis MD ? Ordering Physician: LATRICE FORBES CNM ?Results: 2 ?? Benign Findings ? Date of Service: 08/08/24 ?Follow Up: 1 Year From Orig ?? inal Mammogram ? Procedure(s): MM tomosynthesis screening BI ?? Accession Number(s): [id number] ? cc: Sue Alicia; LATRICE FORBES CNM [...] Kim Gaytan, DO in OV> ? 08/20/24 175 ? DD/ 1120 ? TD/TT: 08/08/24 1140 ? Shell Press Operator: ? Procedure Note Donjulian, Image - 08/20/2024 Dilip [facility]'s [address] [place] [address] Mammography Report Signed Patient: Aleshia Lopez#: [id number] 3 : 9Acct:[id number] Age/Sex: 63 / FADM Date: 08/08/24 Loc: HO.MAMMO Attending Dr: Isael Hollis MD Ordering Physician: LATRICE FORBESesults: 2 Benign Findings Date of Service: 08/08/24Follow Up: 1 Year From Orig inal Mammogram Procedure(s): MM tomosynthesis screening BI Accession Number(s): [id number] cc: Sue Alicia; LATRICE FORBES CNM EXAMINATION: [...] Kim Gaytan DO 08/20/2024 05:58 PM EDT RP Dictated By: Kim Gaytan DO Signed By: <Electronically signed by Kim Gaytan DO in OV> 08/20/24 1758 DD/ 1120 TD/TT: 08/08/24 1140 Shell Press Operator: Latrice Forbes [facility] IM BI PROCEDURES Edited Result - Final * POCT glycosylated hemoglobin (Hgb A1c) (06/04/2024 3:34 PM EDT) Hemoglobin A1C 5.9 4.0 - 6.0 % QC Media Lot # [id number] Lot# Expiration Date [id number] Blood Capillary blood specimen / Unknown 06/04/2024 3:34 PM EDT Sue Alicia MD POINT OF CARE TEST ENTER/EDIT ORDERABLES Final Result * HPV mRNA E6/E7 w/Reflex to HPV Genotypes 16, 18/45 (02/29/2024 9:12 AM EDT) Pathologist [facility] HPV nRNA E6/E7 Not Detected Not Detected [facility] Comment:Methodology: Transcr iption-Mediated AmplificationThis assay detects E6/E7 viral messenger RNA (mRNA) from 14high-risk HPV types (16,18,31,33,35,39,45,51,52,56,58,59,66,68).Cervical sources are required for HPV testing.If a vaginal source from a patient who has had atotal hysterectomy with removal of cervix wassubmitted, please contact the testing laboratoryfor alternative testing options.For additional information, please refer tohttp://education.[employer]/faq/AWO658u0(This link if provided for information/educational purposes only.)THIS TEST WAS PERFORMED AT:[facility] [place] [phone] RODRIGES MD HPV mRNA E6/E7 TNP [facility] HPV 16 RNA TNP [facility] HPV 18/45 RNA TNP [facility] 02/29/2024 9:12 AM EDT 03/05/2024 8:00 AM EDT Latrice Forbes CNM LAB CYTOLOGY ORDERABLES F inal Result [facility] [address] [place] [address] [phone] * Pap Smear (02/29/2024 9:12 AM EDT) Swab Cervix uteri structure / Unknown 02/29/2024 9:12 AM EDT 03/05/2024 8:00 AM EDT Narrative [facility] - 03/27/2024 3:52 PM EDT ----- ------- Name: Nicky Lopez ?Age/Sex: 63/F ? : 1960 Unit#: [id number] ?? Attend Dr: LATRICE FORBES CNM ?Re02/29/24 ?Status: DEP REF ? Location: HO.HHCLNP ? Disch: ? ----- ------- SPEC : [id number] ? RECD: 03/05/24 ? STATUS: ??SOUT ? REQ NUM: [id number] ? [place]: 02/29/24 ? SUBM DR: LATRICE FORBES CNM ? ENTERED: ??03/05/24 ?SP TYPE: Pap Smr ?OTHR DR: ? ORDERED: ??Pap Smear ? Interpretation ?? Satisfactory for evaluation. ?? No endocervical cells seen. ?? Negative for intraepithelial lesion or malignancy. ?HPV mRNA E6/E7: ?NOT DETECTED ? This assay detects E6/E7 viral messenger RNA (mRNA) from 14 high-risk HPV types (16, 18, ?? 31, 33, 35, 39, 45, 51, 52, 56, 58, 59, 66, 68) ?? HPV testing performed by [facility], [place], [place]. ??See reference laboratory ?? portion of the EMR for entire report. ?Clinical Information LMP: Postmenopausal Previous PAP test: 01/2019, NIL/HPV- ? Material Received ?? ThinPrep-Cervical ----- ------- Signed (signature on file) MAC Toro (ASCP) 03/27/24 1552 ? ----- ------- ? END OF REPORT ? us Latrice Forbes [facility] LAB CYTOLOGY ORDERABLES F inal Result [facility] [address] [place] [phone] * (ABNORMAL) LIPID PANEL (06/10/2022 10:29 [...] liver disease. LDL Cholesterol Calculated 92 mg/dl [facility] Comment: Desirable LDL: ? less [...] Alanine Aminotransferase 11 0 - 31 U/L [facility] Albumin Level 3.8 3.5 - 5.0 g/dL [facility] Alkaline Phosphatase 49 39 - 117 U/L [facility] Anion Gap 17 12 - 20 [facility] Aspartate Amino Transferase 15 5 - 31 U/L [facility] Bilirubin Total 0.2 0.0 - 1.0 mg/dL [facility] Blood Urea Nitrogen 18(H) 9 - 16 mg/dL [facility] Calcium 8.2(L) 8.4 - 10.2 mg/dL [facility] Carbon Dioxide 25 22 - 29 mmol/L [facility] Chloride 104 96 - 108 mmol/L [facility] Creatinine, Serum 0.81 0.5 - 1.4 mg/dL [facility] Estimated Glomerular Filt Rate >60 [facility] Comment: NOTE: ??For -Bhutanese individuals, multiply the result ?by 210. ?? Chronic Kidney Disease: ??Estimated GFR < [...] ORDERABLE LABS Final Result Performing Organization Address [facility] de Phone Number [facility] [address] * HEPATITIS A,B,C PROFILE (12/26/2019 12:05 [...] ORDERABLE LABS Final Result Performing Organization Address [facility] de Phone Number [facility] [address] from Last 3 Months or Most Recently Relevant to Health Maintenance Insurance MEDICARE [facility] STANDARD Care Teams Aix System Administrator Relationship Specialty Start Date End Date Sue Alicia MD [address] [place] [address] PCP - General Family Medicine 08/09/23
--- OUTSIDE RECORDS SUMMARY | 2025-01-30 11:26 | XMS_ITS | Encounter Summary ---
Author Organization [employer] [facility] Address [address] [facility] 7t [place] [address] Care Team Providers Care Logger All Round Name Role Phone Sue Alicia MD Primary Care Provider [phone] Reason for Visit * Reason Onset Date Comments Med Refill 11/21/2023 Encounter Details Date Type Department Care Team ([facility] st Contact Info) Description 11/21/2023 Refill [facility] MEDICINE [address] [place], [place] [phone] Sue Alicia MD [address] [place], [place] [phone] Chronic low back pain, unspecified back pain [...] with others, in a hotel, in a care home, living outside on the street, on [...] 10 MG tablet To be sent to: [facility] [place], [place] - [address] [place] [address] documented in this encounter Plan of Treatment Upcoming Encounters Date Type Department Care Team (Late st Contact Info) Description 04/01/2025 10:30 AM EDT Clinical Support [facility] MEDICINE [address] [place] [phone] Cookie Alcaraz RN 04/19/2025 11:15 AM EDT Office Visit [facility] MED[facility]INE [address] [place] [phone] Sue Alicia MD [address] [place] [phone] documented as of this encounter Visit Diagnoses Diagnosis Chronic low back pain, unspecified back pain laterality, unspecified whether sciatica present Rash and nonspecific skin eruption Rash and other nonspecific skin eruption documented in this encounter Additional Health Concerns Assessment Noted Time PHQ-9 Depression Total Score: 0 02/26/20 23 9:24 AM EDT documented as of this encounter Care Teams Logger All Round Relationship Specialty Start Date End Date Sue Alicia MD [address] [place] [address] PCP - General Family Medicine 08/09/23 documented as of this encounter
--- OUTSIDE RECORDS SUMMARY | 2025-01-30 11:26 | XMS_ITS | Encounter Summary ---
Author Organization [employer] Address [address] [facility] 7t [place] [address] Care Team Providers Care Credit Negotiator Name Role Phone Sue Alicia MD Primary Care Provider [phone] Encounter Details Date Type Department Care Team ([facility] st Contact Info) Description 11/22/2023 Orders Only [facility] MEDICINE [address] [place], [place] [phone] Sue Alicia MD [address] [place], [place] [phone] Social History Tobacco Use Types Packs/Day Years [...] with others, in a hotel, in a mcc, living outside on the street, on a [...] Description 04/01/2025 10:30 AM EDT Clinical Support [address] [address] Cookie Alcaraz RN 04/19/2025 11:15 AM EDT Office Visit [address] [phone] Sue Alicia MD [address] [place] [phone] documented as of this encounter Visit Diagnoses Not on filedocumented in this encounter Additional Health Concerns Assessment Noted Time PHQ-9 Depression Total Score: 0 02/26/20 23 9:24 AM EDT documented as of this encounter Care Teams Credit Negotiator Relationship Specialty Start Date End Date Sue Alicia MD [address] [place] [phone] PCP - General Family Medicine 08/09/23 documented as of this encounter
--- OUTSIDE RECORDS SUMMARY | 2025-01-30 11:26 | XMS_ITS | Encounter Summary ---
Author Organization [employer] Address [address] [facility] 7t [place] [address] Care Team Providers Care Pouncing Machine Operator Name Role Phone Sue Alicia MD Primary Care Provider [phone] Reason for Visit * Reason Onset Date Comments Durable Medical Equipment 02/10/2024 Walker and Wheelchair Encounter Details Date Type Department Care Team ([facility] st Contact Info) Description 02/10/2024 Telephone [facility] MEDICINE [address] [place], [place] [phone] Sue Alicia MD [address] [place], [place] [phone] Durable Medical Equipment (Walker and Wheelchair) Social [...] Description 04/01/2025 10:30 AM EDT Clinical Support [facility] MEDICINE [address] [place] [phone] Cookie Alcaraz RN 04/19/2025 11:15 AM EDT Office Visit [facility] MED[facility]INE [address] [place] [phone] Sue Alicia MD [address] [place] [address] documented as of this encounter Visit Diagnoses Not on filedocumented in this encounter Additional Health Concerns Assessment Noted Time PHQ-9 Depression Total Score: 19 024 2:37 PM EDT documented as of this encounter Care Teams Pouncing Machine Operator Relationship Specialty Start Date End Date Sue Alicia MD [address] [place] [address] PCP - General Family Medicine 08/09/23 documented as of this encounter
--- OUTSIDE RECORDS SUMMARY | 2025-01-30 11:26 | XMS_ITS | Encounter Summary ---
Author Organization [employer] [facility] Address [address] [place] [address] 7t [place] [address] Care Team Providers Care Associate Curator Name Role Phone Miranda Ramirez Primary Care Provider [phone] Sue Alicia MD Primary Care Provider [phone] Reason for Visit * Reason Comments Med Refill Encounter Details Date Type Department Care Team ([facility] Contact Info) Description 07/25/2023 Refill [facility] MEDICINE [address] [place] [address] Miranda Ramirez FNP [address] [place] [address] [place] [address] Shortness of breath Social History Tobacco Use [...] Upcoming Encounters Date Type Department Care Team ([facility] Contact Info) Description 04/01/2025 10:30 AM EDT Clinical Support [facility] MEDICINE [address] [place] [address] Cookie Alcaraz RN 04/19/2025 11:15 AM EDT Office Visit [facility] MED[facility]INE 230 [place] [address] Sue Alicia MD 230 [place] [address] documented as of this encounter Visit Diagnoses Diagnosis Shortness of breath documented in this encounter Additional Health Concerns Assessment Noted Time PHQ-9 Depression Total Score: 0 02/26/20 9:24 AM EDT documented as of this encounter Care Teams Associate Curator Relationship Specialty Start Date End Date Miranda Ramirez FNP PCP - General Family Medicine 12/01/22 08/08/23 Sue Alicia MD [address] [place] [address] PCP - General Family Medicine 08/09/23 documented as of this encounter
--- OUTSIDE RECORDS SUMMARY | 2025-01-30 11:26 | XMS_ITS | Encounter Summary ---
Author Organization [employer] [facility] Address [address] [facility] 7t [place] [address] Care Team Providers Care Rag Boiler Name Role Phone Sue Alicia MD Primary Care Provider [phone] Reason for Visit * Reason Onset Date Comments Referral 04/02/2024 Encounter Details Date Type Department Care Team ([facility] Contact Info) Description 04/02/2024 Telephone [facility] MEDICINE 230 [place], [place] [phone] uSe Alicia MD 230 [place], [place] [phone] Referral Social History Tobacco Use Types Packs/Day [...] referral : DATE: n/a TIME: n/a Address: [address] [place] [address] Visits: all year long 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: [facility] chief guard Type of Specialist: chief guard Provider : Rhea Locke MD Address: [address] [place] [address] Fax #: [phone] documented in this encounter Plan of Treatment Upcoming Encounters Date Type Department Care Team (Late st Contact Info) Description 04/01/2025 10:30 AM EDT Clinical Support [facility] MEDICINE [address] [place] [address] Cookie Alcaraz RN 04/19/2025 11:15 AM EDT Office Visit [facility] [address] [place] [address] Sue Alciia MD [address] [place] [address] documented as of this encounter Visit Diagnoses Not on filedocumented in this encounter Additional Health Concerns Assessment Noted Time PHQ-9 Depression Total Score: 19 024 2:37 PM EDT documented as of this encounter Care Teams Rag Boiler Relationship Specialty Start Date End Date Sue Alicia MD 230 [place] [address] PCP - General Family Medicine 08/09/23 documented as of this encounter
--- OUTSIDE RECORDS SUMMARY | 2025-01-30 11:26 | XMS_ITS | Encounter Summary ---
Author Organization [employer] [facility] Address 75 [facility] 7t [place] [address] Care Team Providers Care Um Nurse Name Role Phone Sue Alicia MD Primary Care Provider [phone] Reason for Visit * Reason Onset Date Comments Med Refill 05/09/2024 Encounter Details Date Type Department Care Team ([facility] Contact Info) Description 05/09/2024 Telephone [facility] MEDICINE 230 [place], [place] [phone] Sue Alicia MD 230 [place], [place] [phone] Med Refill Social History Tobacco Use Types [...] EDT Script was sent on 05/04/24 to [facility]. * Telephone Encounter - Jamal Linder - 05/09/2024 9:46 AM EDT TC from pt requesting medication refill. Medications needing refill : cyclobenzaprine (Flexeril) 5 MG tablet To be sent to: [facility] documented in this encounter Plan of Treatment Upcoming Encounters Date Type Department Care Team (Late st Contact Info) Description 04/01/2025 10:30 AM EDT Clinical Support [facility] MEDICINE [address] [place] [address] Cookie Alcaraz RN 04/19/2025 11:15 AM EDT Office Visit [facility] MEDICINE [address] [place] [address] Sue Alicia MD 230 [place] [address] documented as of this encounter Visit Diagnoses Not on filedocumented in this encounter Additional Health Concerns Assessment Noted Time PHQ-9 Depression Total Score: 19 024 2:37 PM EDT documented as of this encounter Care Teams Um Nurse Relationship Specialty Start Date End Date Sue Alicia MD 230 [facility] [place] [address] PCP - General Family Medicine 08/09/23 documented as of this encounter
--- OUTSIDE RECORDS SUMMARY | 2025-01-30 11:26 | XMS_ITS | Encounter Summary ---
Author Organization [employer] Address [address] [facility] [address] 7t [place] [address] Care Team Providers Care Picking Machine Operator Name Role Phone Sue Alicia MD Primary Care Provider [phone] Reason for Visit * Reason Comments Med Refill Encounter Details Date Type Department Care Team ([facility] st Contact Info) Description 04/11/2024 Refill [facility] MED & PEDS [address] [place], [place] [phone] Sue Alicia MD 230 [place], [place] [phone] Shortness of breath Social History Tobacco Use [...] Clinical Support [facility] MEDICINE [address] [place] [address] Cookie Alcaraz RN 04/19/2025 11:15 AM EDT Office Visit [facility] MEDICINE [address] [place] [address] Sue Alicia MD [address] [place] [address] documented as of this encounter Visit Diagnoses Diagnosis Shortness of breath documented in this encounter Additional Health Concerns Assessment Noted Time PHQ-9 Depression Total Score: 19 024 2:37 PM EDT documented as of this encounter Care Teams Picking Machine Operator Relationship Specialty Start Date End Date Sue Alicia MD [address] [place] [address] PCP - General Family Medicine 08/09/23 documented as of this encounter
--- OUTSIDE RECORDS SUMMARY | 2025-01-30 11:26 | XMS_ITS | Encounter Summary ---
Author Organization [employer] Address [address] [facility] 7t [place] [address] Care Team Providers Care Tire Recapping Machine Operator Name Role Phone Sue Alicia MD Primary Care Provider [phone] Reason for Visit * Reason Comments Med Refill Encounter Details Date Type Department Care Team ([facility] st Contact Info) Description 12/11/2024 Refill [facility] MEDICINE 230 [place], [place] [phone] Sue Alicia MD 230 [place], [place] [phone] Chronic low back pain, unspecified back pain [...] Description 04/01/2025 10:30 AM EDT Clinical Support [facility] MEDICINE [address] [place] [address] Cookie Alcaraz RN 04/19/2025 11:15 AM EDT Office Visit [facility] MEDICINE [address] [place] [address] Sue Alicia MD [address] [place] [address] documented as of this encounter Visit Diagnoses Diagnosis Chronic low back pain, unspecified back pain laterality, unspecified whether sciatica present documented in this encounter Additional Health Concerns Assessment Noted Time PHQ-9 Depression Total Score: 19 024 2:37 PM EDT documented as of this encounter Care Teams Tire Recapping Machine Operator Relationship Specialty Start Date End Date Sue Alicia MD [address] [place] [address] PCP - General Family Medicine 08/09/23 documented as of this encounter
--- OUTSIDE RECORDS SUMMARY | 2025-01-30 11:26 | XMS_ITS | Encounter Summary ---
Author Organization [employer] [facility] Address 75 [facility] 7t [place] [address] Care Team Providers Care Power Plant Engineer Name Role Phone Miranda Ramirez Primary Care Provider [phone] Sue Alicia MD Primary Care Provider [phone] Reason for Visit * Reason Comments Med Refill Encounter Details Date Type Department Care Team ([facility] st Contact Info) Description 08/01/2023 Refill [facility] MEDICINE 230 [place] [address] Miranda Ramirez FNP [address] [place] [address] Dept [place] [address] Social History Tobacco Use Types Packs/Day Years [...] Description 04/01/2025 10:30 AM EDT Clinical Support [address] [address] Cookie Alcaraz RN 04/19/2025 11:15 AM EDT Office Visit [address] [address] Sue Alicia MD [address] [place] [address] documented as of this encounter Visit Diagnoses Not on filedocumented in this encounter Additional Health Concerns Assessment Noted Time PHQ-9 Depression Total Score: 0 02/26/20 23 9:24 AM EDT documented as of this encounter Care Teams Power Plant Engineer Relationship Specialty Start Date End Date Miranda Ramirez FNP PCP - General Family Medicine 12/01/22 08/08/23 Sue Alicia MD [address] [place] [address] PCP - General Family Medicine 08/09/23 documented as of this encounter
--- OUTSIDE RECORDS SUMMARY | 2025-01-30 11:26 | XMS_ITS | Encounter Summary ---
Author Organization [facility] Address 75 [facility] 7t [place] [address] Care Team Providers Care Reduction Plant Supervisor Name Role Phone Sue Alicia MD Primary Care Provider [phone] Reason for Visit * Reason Onset Date Comments Call Back Request 02/20/2024 Encounter Details Date Type Department Care Team ([facility] Contact Info) Description 02/20/2024 Telephone [facility] MEDICINE 230 [place], [place] [phone] Sue Alicia MD 230 [place], [place] [phone] Call Back Request Social History Tobacco Use [...] Description 04/01/2025 10:30 AM EDT Clinical Support [facility] MEDICINE [address] [place] [address] Cookie Alcaraz RN 04/19/2025 11:15 AM EDT Office Visit [facility] MEDICINE [address] [place] [address] Sue Alicia MD [address] [place] [address] documented as of this encounter Visit Diagnoses Not on filedocumented in this encounter Additional Health Concerns Assessment Noted Time PHQ-9 Depression Total Score: 19 024 2:37 PM EDT documented as of this encounter Care Teams Reduction Plant Supervisor Relationship Specialty Start Date End Date Sue Alicia MD [address] [place] [address] PCP - General Family Medicine 08/09/23 documented as of this encounter
--- OUTSIDE RECORDS SUMMARY | 2025-01-30 11:26 | XMS_ITS | Encounter Summary ---
Author Organization [employer] [facility] Address [address] [facility] 7t [place] [address] Care Team Providers Care Gill Net Stringer Name Role Phone Sue Alicia MD Primary Care Provider [phone] Reason for Visit * Reason Onset Date Comments Med Refill 02/17/2024 Encounter Details Date Type Department Care Team ([facility] Contact Info) Description 02/17/2024 Telephone [facility] MEDICINE 230 [place], [place] [phone] Sue Alicia MD 230 [place], [place] [phone] Med Refill Social History Tobacco Use Types [...] 5 MG tablet To be sent to: [facility] [place] [place] - [address] [place] [address] documented in this encounter Plan of Treatment Upcoming Encounters Date Type Department Care Team ([facility] st Contact Info) Description 04/01/2025 10:30 AM EDT Clinical Support [facility] MEDICINE [address] [place] [address] Cookie Alcaraz, ABHIJIT 04/19/2025 11:15 AM EDT Office Visit [facility] MEDICINE [address] [place] [address] Sue Alicia MD [address] [place] [address] documented as of this encounter Visit Diagnoses Not on filedocumented in this encounter Additional Health Concerns Assessment Noted Time PHQ-9 Depression Total Score: 19 024 2:37 PM EDT documented as of this encounter Care Teams Gill Net Stringer Relationship Specialty Start Date End Date Sue Alicia MD 230 [place] [address] PCP - General Family Medicine 08/09/23 documented as of this encounter
--- OUTSIDE RECORDS SUMMARY | 2025-01-30 11:26 | XMS_ITS | Encounter Summary ---
Author Organization [facility] Address [address] [facility] 7t [place] [address] Care Team Providers Care Customer Relationship Specialist Name Role Phone Sue Alicia MD Primary Care Provider [phone] Reason for Referral * Consultation (Routine) - Closed Specialty Diagnoses / Procedures Referred By Saroj bauman Referred To Contact Vascular Surgery Diagnoses Pain due to varicose veins of both lower extremities Sue Alicia MD 230 [place] [address] Phone: tel: fax: [facility] Surgeons [address] [place], [place] Phone: tel: fax: Referral ID Status Reason Start Date Expiration Date V isits Requested Visits Authorized [id number] Closed Specialty Services Required 04/17/2024 04/17/2025 6 6 * Consultation (Routine) - Pending Review Specialty Diagnoses / Procedures Referred By Saroj bauman Referred To Contact Pulmonary Disease Diagnoses Mild intermittent asthma without complication Obstructive sleep apnea syndrome Sue Alicia MD 230 [place] [address] Phone: tel: fax: [facility] Pulmonology [address] [place], [place] Phone: tel: fax: Referral ID Status Reason Start Date Expiration Date Visits Requested Visits Authorized [id number] Pending Review Specialty Services Required 04/19/2024 04/19/2025 6 6 Encounter Details Date Type Department Care Team (Late st Contact Info) Description 04/03/2024 Orders Only [facility] MEDICINE 230 [place] [address] Sue Alicia MD 230 [place], [place] [phone] Mild intermittent asthma without complication (Primary Dx); [...] Description 04/01/2025 10:30 AM EDT Clinical Support [facility] MEDICINE [address] [place] [address] Cookie Alcaraz RN 04/19/2025 11:15 AM EDT Office Visit [facility] MEDICINE [address] [place] [address] [phone] Sue Alicia MD [address] [place] [address] Scheduled Referrals Name Type Priority Associated Diagnoses [...] as of this encounter Care Teams Customer Relationship Specialist Relationship Specialty Start Date End Date Sue Alicia MD [address] [place] [address] [phone] PCP - General Family Medicine 08/09/23 documented as of this encounter
--- OUTSIDE RECORDS SUMMARY | 2025-01-30 11:26 | XMS_ITS | Encounter Summary ---
Author Organization [facility] Address [address] [facility] 7t [place] [address] Care Team Providers Care Cage Tender Name Role Phone Sue Alicia MD Primary Care Provider [phone] Reason for Visit * Reason Onset Date Comments Med Refill 08/29/2023 Encounter Details Date Type Department Care Team ([facility] Contact Info) Description 08/29/2023 Telephone [facility] MEDICINE 230 [place], [place] [phone] Sue Alicia MD 230 [place], [place] [phone] Med Refill Social History Tobacco Use Types [...] with others, in a hotel, in a retirement, living outside on the street, on a [...] (Flexeril) 10 MG tablet Please sent to [facility] - [place], [place] - [address] [place] [address] documented in this encounter Plan of Treatment Upcoming Encounters Date Type Department Care Team (Late st Contact Info) Description 04/01/2025 10:30 AM EDT Clinical Support [facility] MEDICINE [address] [place] [address] Cookie Alcaraz RN 04/19/2025 11:15 AM EDT Office Visit [facility] MEDICINE [address] [place] [address] Sue Alicia MD [address] [place] [address] documented as of this encounter Visit Diagnoses Not on filedocumented in this encounter Additional Health Concerns Assessment Noted Time PHQ-9 Depression Total Score: 0 02/26/20 9:24 AM EDT documented as of this encounter Care Teams Cage Tender Relationship Specialty Start Date End Date Sue Alicia MD 230 [place] [address] PCP - General Family Medicine 08/09/23 documented as of this encounter
--- OUTSIDE RECORDS SUMMARY | 2025-01-30 11:27 | XMS_ITS | Encounter Summary ---
Author Organization [employer] [facility] Address [address] [facility] 7t [place] [address] Care Team Providers Care Customs Import Specialist Name Role Phone Sue Alicia MD Primary Care Provider [phone] Reason for Visit * Reason Comments Med Refill Encounter Details Date Type Department Care Team ([facility] st Contact Info) Description 08/26/2023 Refill [facility] MEDICINE 230 [place], [place] [phone] Negrita Diaz FNP 230 [place] [address] Other chronic pain Social History Tobacco Use [...] with others, in a hotel, in a alf, living outside on the street, on a [...] Description 04/01/2025 10:30 AM EDT Clinical Support [facility] MEDICINE [address] [place] [address] Cookie Alcaraz RN 04/19/2025 11:15 AM EDT Office Visit [facility] MEDICINE [address] [place] [address] Sue Alicia MD [address] [place] [address] documented as of this encounter Visit Diagnoses Diagnosis Other chronic pain documented in this encounter Additional Health Concerns Assessment Noted Time PHQ-9 Depression Total Score: 0 02/26/20 23 9:24 AM EDT documented as of this encounter Care Teams Customs Import Specialist Relationship Specialty Start Date End Date Sue Alicia MD [address] [place] [address] PCP - General Family Medicine 08/09/23 documented as of this encounter
--- OUTSIDE RECORDS SUMMARY | 2025-01-30 11:27 | XMS_ITS | Encounter Summary ---
Author Organization [employer] Address [address] [facility] [address] 7t [place] [address] Care Team Providers Care First Front Ventilator Name Role Phone Sue Alicia MD Primary Care Provider [phone] Reason for Visit * Reason Comments Med Refill Encounter Details Date Type Department Care Team ([facility] st Contact Info) Description 08/28/2024 Refill [facility] MED & PEDS [address] [place], [place] [phone] Sue Alicia MD 230 [place], [place] [phone] Chronic low back pain, unspecified back pain [...] Description 04/01/2025 10:30 AM EDT Clinical Support [facility] MEDICINE [address] [place] [address] Cookie Alcaraz RN 04/19/2025 11:15 AM EDT Office Visit [facility] MEDICINE [address] [place] [address] Sue Alicia MD [address] [place] [address] documented as of this encounter Visit Diagnoses Diagnosis Chronic low back pain, unspecified back pain laterality, unspecified whether sciatica present documented in this encounter Additional Health Concerns Assessment Noted Time PHQ-9 Depression Total Score: 19 024 2:37 PM EDT documented as of this encounter Care Teams First Front Ventilator Relationship Specialty Start Date End Date Sue Alicia MD [address] [place] [address] PCP - General Family Medicine 08/09/23 documented as of this encounter
--- OUTSIDE RECORDS SUMMARY | 2025-01-30 11:27 | XMS_ITS | Encounter Summary ---
Author Organization [employer] Address [address] [facility] [address] 7t [place] [address] Care Team Providers Care Steam Shovel Runner Name Role Phone Sue Alicia MD Primary Care Provider [phone] Encounter Details Date Type Department Care Team ([facility] st Contact Info) Description 09/17/2024 Orders Only [facility] MEDICINE 230 [place] [address] Sue Alicia MD 230 [place], [place] [phone] Bronchitis (Primary Dx) Social History Tobacco Use [...] Description 04/01/2025 10:30 AM EDT Clinical Support [facility] MEDICINE [address] [place] [address] Cookie Alcaraz RN 04/19/2025 11:15 AM EDT Office Visit [facility] MEDICINE [address] [place] [address] Sue Alicia MD [address] [place] [address] documented as of this encounter Visit Diagnoses Diagnosis Bronchitis- Primary Bronchitis, not specified as acute or chronic documented in this encounter Additional Health Concerns Assessment Noted Time PHQ-9 Depression Total Score: 19 024 2:37 PM EDT documented as of this encounter Care Teams Steam Shovel Runner Relationship Specialty Start Date End Date Sue Alicia MD [address] [place] [address] PCP - General Family Medicine 08/09/23 documented as of this encounter
--- OUTSIDE RECORDS SUMMARY | 2025-01-30 11:27 | XMS_ITS | Encounter Summary ---
Author Organization [employer] [facility] Address [address] [place] [address] 7t [place] [address] Care Team Providers Care Marble Polisher Name Role Phone Miranda Ramirez Primary Care Provider [phone] Sue Alicia MD Primary Care Provider [phone] Reason for Visit * Reason Comments Med Refill Encounter Details Date Type Department Care Team ([facility] Contact Info) Description 07/21/2023 Refill [facility] MEDICINE 230 [place] [address] Miranda Ramirez FNP [address] [place] [address] Dept [place] [address] Hypothyroidism, unspecified type Social History Tobacco Use [...] Department Care Team (Late Contact Info) Description 04/01/2025 10:30 AM EDT Clinical Support [facility] MEDICINE 230 [place] [address] Cookie Alcaraz RN 04/19/2025 11:15 AM EDT Office Visit [facility] MEDICINE 230 [place] [address] Sue Alicia MD 230 [place] [address] documented as of this encounter Visit Diagnoses Diagnosis Hypothyroidism, unspecified type documented in this encounter Additional Health Concerns Assessment Noted Time PHQ-9 Depression Total Score: 0 02/26/20 9:24 AM EDT documented as of this encounter Care Teams Marble Polisher Relationship Specialty Start Date End Date Miranda Ramirez FNP PCP - General Family Medicine 12/01/22 08/08/23 Sue Alicia MD [address] [place] [address] PCP - General Family Medicine 08/09/23 documented as of this encounter
--- OUTSIDE RECORDS SUMMARY | 2025-01-30 11:27 | XMS_ITS | Encounter Summary ---
Author Organization [employer] [facility] Address [address] [facility] 7t [place] [address] Care Team Providers Care Director Private Music Therapy Agency Name Role Phone Sue Alicia MD Primary Care Provider [phone] Reason for Visit * Reason Comments Med Refill Encounter Details Date Type Department Care Team ([facility] st Contact Info) Description 10/03/2024 Refill [facility] MEDICINE [address] [place], [place] [phone] Sue Alicia MD 230 [place], [place] [phone] Bronchitis Social History Tobacco Use Types Packs/Day [...] Description 04/01/2025 10:30 AM EDT Clinical Support [facility] MEDICINE [address] [place] [address] Cookie Alcaraz RN 04/19/2025 11:15 AM EDT Office Visit [facility] MEDICINE [address] [place] [address] Sue Alicia MD [address] [place] [address] documented as of this encounter Visit Diagnoses Diagnosis Bronchitis Bronchitis, not specified as acute or chronic documented in this encounter Additional Health Concerns Assessment Noted Time PHQ-9 Depression Total Score: 19 024 2:37 PM EDT documented as of this encounter Care Teams Director Private Music Therapy Agency Relationship Specialty Start Date End Date Sue Alicia MD [address] [place] [address] PCP - General Family Medicine 08/09/23 documented as of this encounter
== END 2025-01-30 11:16 | disposition home or self-care (01) ==
LOC: HO.HGS 09:58
PROVIDERS: Visit Provider Surgery
DX: D17.9 Benign lipomatous neoplasm, unspecified (principal)
CPT/HCPCS: 99024

== ENCOUNTER → 2025-01-30 09:58 | Outpatient (BNVA) | payer MEDICARE, MEDICAID, SELFPAY | PROVIDERS: Visit Provider Surgery | DX: Z09 Encounter for follow-up examination after completed treatment for conditions other than malignant neoplasm (principal); Z98.890 Other specified postprocedural states | CPT/HCPCS: 99212 ==

== ENCOUNTER 2025-02-19 06:21 | Outpatient (REF) | payer MEDICARE, MEDICAID, SELFPAY ==
--- OUTSIDE RECORDS SUMMARY | 2025-02-19 06:24 | XMS_ITS | Clinical Summary ---
Author Organization [facility] 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); 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> (HCC); Stage 3b chronic kidney disease (HCC) from Last 3 Months Immunizations Immunization Administration Dates Next Due Influenza Split 07/25/2012 Influenza, Quadrivalent, Pre servative Free 07/23/2021,09/19/2020,07/18/2017,07/25 Influenza, Quadrivalent, Wit h Preservative 08/02/2018,07/23/2016 Influenza, Trivalent, Adjuvanted 08/20/2019 Jhoan SARS-COV-2 01/21/2021 Pfizer SARS-COV-2 09/23/2021 Pneumococcal Conjugate [...] Visit [facility] [address] [place] [address] [place] [address] Ben Cummins MD [address] [facility] [address] [place] [id number] Health Maintenance Due Date Last Done Comments Breast Cancer Screening 1959 Colorectal Cancer Screening: Annual FOBT 2008 Colorectal Cancer Screening: Colonoscopy 2008 Colorectal Cancer Screening: Sigmoidoscopy 2008 Diabetes: Ophthalmology Exam 11/30/2020 Diabetes: Pedal Pulse Checked 11/30/2020 Diabetes: Sensory Foot Exam 11/30/2020 Diabetes: Visual Foot Exam 11/30/2020 Diabetes: Hemoglobin A1C 09/04/2024 024, 02/08/2024, 10/26/2023, Additional history exists Influenza Vaccine (Season Ended) 2025 07/23/2021, 09/19/2020, 08/20/2019, Additional history exists Pneumococcal Vaccine: 50+ Years Completed 04/20/2023, 08/16/2018, 10/04/2017 Pneumococcal Vaccine: Peds (0 to 5 Years) and At-Risk Patients (6 to 49 Years) Discontinued 04/20/2023, 08/16/2018, 10/04/2017 Hepatitis B Vaccine Aged [...] ? sample. Estimated Average Glucose 114 mg/dL [place] Comment: eAG = Estimated average glucose which is %A1C expressed as average glucose, using the formula of the U9S-Xmnsakp Average Glucose study (ADAG), Diabetes Care, Vol.31,#8, May. 2007 Blood (Blood, Venous) 10/26/2023 9:17 AM EST 10/26/2023 9:17 AM EST us Ben Cummins MD LAB BLOOD ORDERABLES Final Re sult [place] from Last 3 Months or Most Recently Relevant to Health Maintenance [place] Sub[place] Plan / Payer (Ef fective 2020-Present) Name:Jose Armando Lopeza Relation to Subscriber:Self Name:Nicky Lopez Payer ID:Not on file Group ID:Not on file Type:Not on file Address: [address] [place] Medicare Care Teams Slitter And Cutter Operator Relationship Specialty Start Date End Date Gideon Mccormack PCP - General Internal Medicine 12/30/20
--- OUTSIDE RECORDS SUMMARY | 2025-02-19 06:24 | XMS_ITS | Encounter Summary ---
Author Organization [employer] Address [address] [facility] 7t [place] [address] Care Team Providers Care Relief Cook Name Role Phone Sue Alicia MD Primary Care Provider [phone] Reason for Visit * Reason Comments Med Refill Encounter Details Date Type Department Care Team ([facility] st Contact Info) Description 02/17/2025 Refill [facility] MED & PEDS [address] [place], [place] [phone] Sue Alicia MD 230 [place], [place] [phone] Rash and nonspecific skin eruption Social History [...] Description 04/01/2025 10:30 AM EDT Clinical Support [facility] MEDICINE [address] [place] [address] Cookie Alcaraz RN 04/19/2025 11:15 AM EDT Office Visit [facility] MEDICINE [address] [place] [address] Sue Alicia MD [address] [place] [address] documented as of this encounter Visit Diagnoses Diagnosis Rash and nonspecific skin eruption Rash and other nonspecific skin eruption documented in this encounter Additional Health Concerns Assessment Noted Time PHQ-9 Depression Total Score: 19 024 2:37 PM EDT documented as of this encounter Care Teams Relief Cook Relationship Specialty Start Date End Date Sue Alicia MD [address] [place] [address] PCP - General Family Medicine 08/09/23 documented as of this encounter
--- OUTSIDE RECORDS SUMMARY | 2025-02-19 06:24 | XMS_ITS | Encounter Summary ---
Author Organization [employer] [facility] Address [address] [facility] 7t [place] [address] Care Team Providers Care Index Clerk Name Role Phone Sue Alicia MD Primary Care Provider [phone] Reason for Visit * Reason Onset Date Comments Med Refill 05/09/2024 Encounter Details Date Type Department Care Team ([facility] Contact Info) Description 05/09/2024 Telephone [facility] MEDICINE 230 [place], [place] [phone] Sue Alicia MD 230 [place], [place] [phone] Med Refill Social History Tobacco Use Types [...] EDT Script was sent on 05/04/24 to [facility]. * Telephone Encounter - Jamal Linder - 05/09/2024 9:46 AM EDT TC from pt requesting medication refill. Medications needing refill : cyclobenzaprine (Flexeril) 5 MG tablet To be sent to: [facility] documented in this encounter Plan of Treatment Upcoming Encounters Date Type Department Care Team (Late st Contact Info) Description 04/01/2025 10:30 AM EDT Clinical Support [facility] MEDICINE [address] [place] [address] Cookie Alcaraz RN 04/19/2025 11:15 AM EDT Office Visit [facility] MEDICINE [address] [place] [address] Sue Alicia MD [address] [place] [address] documented as of this encounter Visit Diagnoses Not on filedocumented in this encounter Additional Health Concerns Assessment Noted Time PHQ-9 Depression Total Score: 19 024 2:37 PM EDT documented as of this encounter Care Teams Index Clerk Relationship Specialty Start Date End Date Sue Alicia MD 230 [facility] [place] [address] PCP - General Family Medicine 08/09/23 documented as of this encounter
--- OUTSIDE RECORDS SUMMARY | 2025-02-19 06:25 | XMS_ITS | Encounter Summary ---
Author Organization [employer] [facility] Address [address] [facility] 7t [place] [address] Care Team Providers Care Sand Hauler Name Role Phone Sue Alicia MD Primary Care Provider Reason for Visit * Reason Onset Date Comments Med Refill 02/17/2024 Encounter Details Date Type Department Care Team ([facility] Contact Info) Description 02/17/2024 Telephone [facility] MEDICINE 230 [place], [place] [phone] Sue Alicia MD 230 [place], [place] [phone] Med Refill Social History Tobacco Use Types [...] 5 MG tablet To be sent to: [facility] [place], [place] - [address] [place] [address] documented in this encounter Plan of Treatment Upcoming Encounters Date Type Department Care Team ([facility] st Contact Info) Description 04/01/2025 10:30 AM EDT Clinical Support [facility] MEDICINE [address] [place] [phone] Cookie Alcaraz, ABHIJIT 04/19/2025 11:15 AM EDT Office Visit [facility] MED[facility]INE [address] [place] [address] Sue Alicia MD [address] [place] [address] documented as of this encounter Visit Diagnoses Not on filedocumented in this encounter Additional Health Concerns Assessment Noted Time PHQ-9 Depression Total Score: 19 024 2:37 PM EDT documented as of this encounter Care Teams Sand Hauler Relationship Specialty Start Date End Date Sue Alicia MD 230 [place] [address] PCP - General Family Medicine 08/09/23 documented as of this encounter
--- OUTSIDE RECORDS SUMMARY | 2025-02-19 06:25 | XMS_ITS | Encounter Summary ---
Author Organization [employer] Address [address] [facility] 7t [place] [address] Care Team Providers Care Jukebox Checker Name Role Phone Sue Alicia MD Primary Care Provider [phone] Reason for Visit * Reason Comments Med Refill Encounter Details Date Type Department Care Team ([facility] st Contact Info) Description 12/11/2024 Refill [facility] MEDICINE 230 [place], [place] [phone] Sue Alicia MD 230 [place], [place] [phone] Chronic low back pain, unspecified back pain [...] Description 04/01/2025 10:30 AM EDT Clinical Support [facility] MEDICINE [address] [place] [address] Cookie Alcaraz RN 04/19/2025 11:15 AM EDT Office Visit [facility] MEDICINE [address] [place] [address] Sue Alicia MD [address] [place] [address] documented as of this encounter Visit Diagnoses Diagnosis Chronic low back pain, unspecified back pain laterality, unspecified whether sciatica present documented in this encounter Additional Health Concerns Assessment Noted Time PHQ-9 Depression Total Score: 19 024 2:37 PM EDT documented as of this encounter Care Teams Jukebox Checker Relationship Specialty Start Date End Date Sue Alicia MD [address] [place] [address] PCP - General Family Medicine 08/09/23 documented as of this encounter
--- OUTSIDE RECORDS SUMMARY | 2025-02-19 06:25 | XMS_ITS | Encounter Summary ---
Author Organization [employer] Address [address] [facility] [address] 7t [place] [address] Care Team Providers Care Learning Disabled Teacher Name Role Phone Sue Alicia MD Primary Care Provider [phone] Reason for Visit * Reason Comments Med Refill Encounter Details Date Type Department Care Team ([facility] st Contact Info) Description 04/11/2024 Refill [facility] CH[facility] MED & PEDS [address] [place], [place] [phone] Sue Alicia MD 230 [place], [place] [phone] Shortness of breath Social History Tobacco Use [...] Description 04/01/2025 10:30 AM EDT Clinical Support [facility] MEDICINE [address] [place] [address] Cookie Alcaraz RN 04/19/2025 11:15 AM EDT Office Visit [facility] MEDICINE [address] [place] [address] Sue Alicia MD [address] [place] [address] documented as of this encounter Visit Diagnoses Diagnosis Shortness of breath documented in this encounter Additional Health Concerns Assessment Noted Time PHQ-9 Depression Total Score: 19 024 2:37 PM EDT documented as of this encounter Care Teams Learning Disabled Teacher Relationship Specialty Start Date End Date Sue Alicia MD [address] [place] [phone] PCP - General Family Medicine 08/09/23 documented as of this encounter
--- OUTSIDE RECORDS SUMMARY | 2025-02-19 06:25 | XMS_ITS | Encounter Summary ---
Author Organization [employer] [facility] Address [address] [place] [address] 7t [place] [address] Care Team Providers Care Landscape Manager Name Role Phone Miranda Ramirez Primary Care Provider [phone] Sue Alicia MD Primary Care Provider [phone] Reason for Visit * Reason Comments Med Refill Encounter Details Date Type Department Care Team ([facility] Contact Info) Description 07/25/2023 Refill [facility] MEDICINE [address] [place] [address] Miranda Ramirez FNP [address] [place] [address] Dept [place] [address] Shortness of breath Social History Tobacco Use [...] Upcoming Encounters Date Type Department Care Team ([facility] Contact Info) Description 04/01/2025 10:30 AM EDT Clinical Support [facility] MEDICINE [address] [place] [address] Cookie Alcaraz RN 04/19/2025 11:15 AM EDT Office Visit [facility] MEDICINE 230 [place] [address] Sue Alicia MD 230 [place] [address] documented as of this encounter Visit Diagnoses Diagnosis Shortness of breath documented in this encounter Additional Health Concerns Assessment Noted Time PHQ-9 Depression Total Score: 0 02/26/20 9:24 AM EDT documented as of this encounter Care Teams Landscape Manager Relationship Specialty Start Date End Date Miranda Ramirez FNP PCP - General Family Medicine 12/01/22 08/08/23 Sue Alicia MD [address] [place] [address] PCP - General Family Medicine 08/09/23 documented as of this encounter
--- OUTSIDE RECORDS SUMMARY | 2025-02-19 06:25 | XMS_ITS | Encounter Summary ---
Author Organization [employer] [facility] Address [address] [place] [address] 7t [place] [address] Care Team Providers Care Trade Recruiter Name Role Phone Miranda Ramirez Primary Care Provider [phone] Sue Alicia MD Primary Care Provider [phone] Reason for Visit * Reason Comments Med Refill Encounter Details Date Type Department Care Team ([facility] Contact Info) Description 07/21/2023 Refill [facility] MEDICINE [address] [place] [address] Miranda Ramirez FNP [address] [place] [address] [place] [address] Hypothyroidism, unspecified type Social History Tobacco Use [...] Description 04/01/2025 10:30 AM EDT Clinical Support [facility] MEDICINE 230 [place] [address] Cookie Alcaraz RN 04/19/2025 11:15 AM EDT Office Visit [facility] MEDICINE [address] [place] [address] Sue Alicia MD 230 [place] [address] documented as of this encounter Visit Diagnoses Diagnosis Hypothyroidism, unspecified type documented in this encounter Additional Health Concerns Assessment Noted Time PHQ-9 Depression Total Score: 0 02/26/20 9:24 AM EDT documented as of this encounter Care Teams Trade Recruiter Relationship Specialty Start Date End Date Miranda Ramirez FNP PCP - General Family Medicine 12/01/22 08/08/23 Sue Alicia MD [address] [place] [address] PCP - General Family Medicine 08/09/23 documented as of this encounter
--- OUTSIDE RECORDS SUMMARY | 2025-02-19 06:25 | XMS_ITS | Encounter Summary ---
Author Organization [employer] Address [address] [facility] 7t [place] [address] Care Team Providers Care Street Department Dispatcher Name Role Phone Sue Alicia MD Primary Care Provider [phone] Reason for Visit * Reason Comments Med Refill Encounter Details Date Type Department Care Team ([facility] st Contact Info) Description 10/03/2024 Refill [facility] MEDICINE 230 [place], [place] [phone] Sue Alicia MD 230 [place], [place] [phone] Chronic low back pain, unspecified back pain [...] 10:30 AM EDT Clinical Support [facility] MEDICINE [address] [place] [phone] Cookie Alcaraz RN 04/19/2025 11:15 AM EDT Office Visit [facility] MEDICINE [address] [place] [address] Sue Alicia MD [address] [place] [address] documented as of this encounter Visit Diagnoses Diagnosis Chronic low back pain, unspecified back pain laterality, unspecified whether sciatica present documented in this encounter Additional Health Concerns Assessment Noted Time PHQ-9 Depression Total Score: 19 024 2:37 PM EDT documented as of this encounter Care Teams Street Department Dispatcher Relationship Specialty Start Date End Date Sue Alicia MD [address] [place] [address] PCP - General Family Medicine 08/09/23 documented as of this encounter
--- OUTSIDE RECORDS SUMMARY | 2025-02-19 06:25 | XMS_ITS | Clinical Summary ---
Author Organization [employer] [facility] Address [address] 7[address] [place] [address] Care Team Providers Care Library Manager Name Role Phone Sue Alicia MD Primary Care Provider [phone] Allergies Active Allergy Reactions Criticality Noted Date [...] ROTATE INJECTION SITES. 3 mL 1 Active oxyCODONE-acetam inophen (Percocet) 5-325 MG tabletIndication s:Other chronic pain Take 1 tablet by mouth every 6 (six) hours if needed for severe pain for up to 28 days. 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 2024 Overview (11/06/2024): Dx: Rx: Last MANAGER ASSURANCE agreement: Tier II (visit every 3 months) [...] calcification, right 05/03/2023 History of primary hyperparathyroidism 3 senior living systemic steroid user 05/03/2023 Osteopenia 05/03/2023 Overview [...] disease, without long-term current use of insulin ([facility]) 02/25/2023 Assessment & Plan (06/08/2024 11:55 AM EDT): A1C 5.9 Current regimen: Metformin 1000mg BID; Ozempic 0.5mg Microalbumin: due Lipid panel: ordered Foot exam: 06/04/24 Eye: 02/11/23 [facility]; No diabetic retinopathy or macular degeneration Statin: Atorvastatin 20mg MELLISSA/ARB: Irbesartan 75mg Assessment & Plan (02/08/2024 8:59 PM EDT): A1C 6.7 Current regimen: Metformin 1000mg BID; Victoza injection Microalbumin: due Lipid panel: today Foot exam: Perform next visit Eye: 02/11/23 [facility]; No diabetic retinopathy or [...] 05/03/2023 05/03/2023 Long-term use of immunosuppressant medication 05/03/2005/03/2023 Encounters Date Type Department Care Team Description 02/17/2025 Refill [facility] [address] [place] [address] Sue Alicia MD Rash and nonspecific skin eruption 02/08/2025 Refill [facility] [address] [place] [address] Sue Alicia MD Chronic low back pain, unspecified back pain laterality, unspecified whether sciatica present 01/24/2025 Telephone [facility] [address] [place] [address] Sue Alicia MD 01/22/2025 Refill [facility] [address] [place] [address] Sue Alicia MD Other chronic pain 01/16/2025 Refill [facility] [address] [place] [address] Sue Alicia MD Chronic low back pain, unspecified back pain laterality, unspecified whether sciatica present 01/15/2025 Telephone [facility] [address] [place] [address] Sue Alicia MD Appointment Request 01/14/2025 Orders Only GENERIC EXTERNAL DATA DEPARTMENT Provider, Generic External Data 01/08/2025 Telephone [facility] [address] [place] [address] Sue Alicia MD Appointment Request 01/01/2025 Refill [facility] [address] [place] [address] Sue Alicia MD Type 2 diabetes mellitus with diabetic chronic kidney disease ([facility]/HCC) 12/31/2024 Telephone [facility] [address] [place] [address] [place] 12/31/2024 Telephone [facility] [address] [place] [address] Sue Alicia MD Prior Authorization (Cyclobenzaprine 5mg) 12/26/2024 Refill [facility] [address] [place] [address] Sue Alicia MD Chronic low back pain, unspecified back pain laterality, unspecified whether sciatica present; Other chronic pain 12/19/2024 10:15 AM EST Office Visit [facility] [address] [place] [address] Presbyopia (Primary Dx) 12/19/2024 Travel 12/11/2024 Refill [facility] [address] [place] [address] Sue Alicia MD Chronic low back pain, unspecified back pain laterality, unspecified whether sciatica present 11/30/2024 Refill [facility] [address] [place] [address] Sue Alicia MD Chronic low back pain, unspecified back pain laterality, unspecified whether sciatica present 11/27/2024 Refill [facility] [address] [place] [address] Sue Alicia MD Other chronic pain 11/21/2024 9:00 AM EST Clinical Support [facility] [address] [place] [address] Cookie Alcaraz, floor attendant low back pain, unspecified back pain laterality, unspecified whether sciatica present (Primary Dx) 11/21/2024 Telephone [facility] [address] [place] [address] Cookie Alcaraz, RN MANAGER ASSURANCE Renewal today 11/21/2024 Travel 11/21/2024 Telephone [facility] [address] [place] [address] Cookie Alcaraz, RN Recommend MANAGER ASSURANCE Tier 3 from Last 3 Months Immunizations Name Administration Dates Next Due Influenza injectable quadriv alent IIV4 with preservative 08/20/2019,08/02/2018,07/23/2016 Influenza injectable quadriv alent preservative free 07/23/2021,09/19/2020,07/26/2018,07/18,07/25/2015 Influenza, IIV3, injectable 06/27/2014 Influenza, Split (incl. christophe fied surface antigen) 07/25/2012 Influenza, trivalent, adjuvanted 08/20/2019 Inivata SARS-CoV-2 Vaccination 01/21/2021 Pfizer Covid-19 Vaccine 12+ [...] Description 04/01/2025 10:30 AM EDT Clinical Support [facility] [address] [place] [address] Cookie Alcaraz RN 04/19/2025 11:15 AM EDT Office Visit [facility] [address] [place] [address] Sue Alicia MD [address] [place] [address] Health Maintenance Due Date Last Done Comments CT Colonography 1960 Colonoscopy 1960 Colorectal Cancer Screening 1960 FIT DNA/Cologuard 1960 FIT 1960 FOBT 1960 Sigmoidoscopy 1960 Alcohol/Substance Use Screening 1971 RSV Patients and Patients Aged 60 years or older (1 - Risk 60-74 years 1-dose series) 2019 Zoster Vaccines (2 of 2) 05/21/2022 03/26/2022 Lipid Panel 06/10/2023 06/10/2022, 02/11/2021 COVID-19 Vaccine ( season) 2024 09/23/2021, 01/21/2021 Influenza Vaccine (#1) 2024 , 09/19/2020, 08/20/2019, Additional history exists Depression Monitoring 08/09/2024 02/08/2024, 024 Diabetes: Hemoglobin A1C 12/05/2024 024, 02/08/2024, 02/25/2023, Additional history exists Depression Screening 02/07/2025 02/08/2024, 02/08/20 SDOH Screening 02/07/2025 02/08/2024 Cervical Cancer Screening [...] back pain laterality, unspecified whether sciatica present BI MAMMOGRAM SCREENING TOMOSYNTHESIS BILATERAL Routine 08/08/2024 11:20 AM EDT Breast cancer screening by mammogram POCT GLYCOSYLATED HEMOGLOBIN (HGB A1C) Routine 06/04/2024 3:34 PM EDT Type 2 diabetes mellitus with stage 2 chronic kidney disease, without long-term current use of insulin (CMS/HCC) ([facility]) HPV MRNA E6/E7 REFLEX TO HPV 16, 18/45 Routine 02/29/2024 9:12 AM EDT PAP SMEAR Routine 02/29/2024 9:12 AM EDT Cervical cancer screening [facility] HISTORICAL LIPID PANEL Routine 06/10/2022 10:29 AM EDT [facility] HISTORICAL HEPATITIS A,B,C PROFILE Routine 12/26/2019 12:05 PM EST from Last 3 Months or Most Recently Relevant to Health Maintenance Results * Gross and Microscopic Level 3 (01/14/2025 10:30 AM EDT) 01/14/2025 10:3 0 AM EDT 01/15/2025 8:10 AM EDT [facility] - 01/17/2025 10:39 AM EDT ----- ------- Name: Gregory Lopezlia ?Age/Sex: 64/F ? : 1960 Unit#: [id number] ?? Attend Dr: Agustín Real MD ?Re01/14/25 ?Status: DEP REF ? [facility] ?Disch: ? ----- ------- SPEC : [id number] ? RECD: 01/15/25 ? STATUS: ??SOUT ? REQ NUM: [id number] ? [place]: 01/14/25-0 ? SUBM DR: Agustín Real MD ? ENTERED: ??01/15/25 ?SP TYPE: Surgical ? OTHR DR: Miranda Ramirez DIE FITTER ? ORDERED: ??Gross Micro L3 ? Diagnosis [...] Copies To: ?? Agustín Real MD ?? [facility] ?? [address] ?? [place] [address] ?? [phone] ? CONTINUED ON NEXT PAGE ----- ------- Name: Nicky Lopez ?Age/Sex: 64/F ? : 1960 Unit#: [id number] ?? Attend Dr: Agustín Real MD ?Re01/14/25 ?Status: DEP REF ? Location: .LAB ?Disch: ? ----- ------- SPEC : [id number] ? RECD: 01/15/25 ? STATUS: ??SOUT ? REQ NUM: [id number] ? [place]: 01/14/25 ? SUBM DR: Agustín Real MD ? ENTERED: ??01/15/25 ?SP TYPE: Surgical ? OTHR DR: Miranda Ramirez DIE FITTER ? ORDERED: ??Gross Micro L3 ? Copies To: ??(Continued) ?? Miranda Ramirez ?? [address] ?? [place] [address] ?? [phone] ----- ------- Signed (signature on file) Humphrey Cedeño MD 01/17/25 1039 ? ----- ------- ? END OF REPORT ? us Generic External Data Provider LAB CYTOLOGY NANCY MURCIA Final Result [facility] [address] [facility] [place] [address] [phone] * POCT EDMOND-14 Urine Drug Screen (11/21/2024 9:13 AM EST) THC Positive TCA, Urine Positive Oxycodone Screen, Urine Positive Urine Urine specimen obtained by clean catch procedure / Unknown 11/21/2024 9:13 AM EST Cookie Chapman, ABHIJIT - 11/21/2024 9:13 AM EST UTOX cup Lot#[id number] Exp. 07/25/26 Internal Pass Control us Sue Alicia MD POINT OF CARE TEST ENTER/EDIT ORDERABLES Final Result * BI Mammogram Screening Tomosynthesis Bilateral (08/08/2024 11:20 AM EDT) Anatomical Region Laterality Modality Breast Bilateral Mammography 08/08/2024 11:2 0 AM EDT Narrative 08/20/2024 6:01 PM EDT ? [facility] [place] ? [address] ?[place] [address] ? Mammography Report ? Signed ? Patient: Lopez,Nicky ?MR#: [id number] ?? 3 ? : 1960 ?Acct:[id number] ? Age/Sex: 63 / F ?ADM Date: 08/08/24 ? Loc: HO.MAMMO ? Attending Dr: Isael Hollis MD ? Ordering Physician: LATRICE FORBES CNM ?Results: 2 ?? Benign Findings ? Date of Service: 08/08/24 ?Follow Up: 1 Year From Orig ?? inal Mammogram ? Procedure(s): MM tomosynthesis screening BI ?? Accession Number(s): [id number] ? cc: Sue Alicia; LATRICE FORBES CNM [...] ? Signed By: ?<Electronically signed by Kim Tyminski, DO in OV> ? 08/20/24 1758 ? DD/ 1120 ? TD/TT: 08/08/24 1140 ? State Game Protector: ? Procedure Note Segundo, Gomez - 08/20/2024 [facility] [address] [place] [address] [place] [address] Mammography Report Signed Patient: Aleshia Lopez#: [id number] 3 : 9Acct:[id number] Age/Sex: 63 / FADM Date: 08/08/24 Loc: HO.MAMMO Attending Dr: Isael Hollis MD Ordering Physician: LATRICE FORBESesults: 2 Benign Findings Date of Service: 08/08/24Follow Up: 1 Year From Orig inal Mammogram Procedure(s): MM tomosynthesis screening BI Accession Number(s): [id number] cc: Sue Alicia; LATRICE FORBES CNM EXAMINATION: [...] 08/20/24 1758 DD/ 1120 TD/TT: 08/08/24 1140 State Game Protector: Latrice Forbes CNM IMG BI PROCEDURES Edited Result - Final * POCT glycosylated hemoglobin (Hgb A1c) (06/04/2024 3:34 PM EDT) Hemoglobin A1C 5.9 4.0 - 6.0 % QC Media Lot # [id number] Lot# Expiration Date [id number] Blood Capillary blood specimen / Unknown 06/04/2024 3:34 PM EDT Sue Alicia MD POINT OF CARE TEST ENTER/EDIT ORDERABLES Final Result * HPV mRNA E6/E7 w/Reflex to HPV Genotypes 16, 18/45 (02/29/2024 9:12 AM EDT) HPV nRNA E6/E7 Not Detected Not Detected [facility] Comment:Methodology: Transcr iption-Mediated AmplificationThis assay detects E6/E7 viral messenger RNA (mRNA) from 14high-risk HPV types (16,18,31,33,35,39,45,51,52,56,58,59,66,68).Cervical sources are required for HPV testing.If a vaginal source from a patient who has had atotal hysterectomy with removal of cervix wassubmitted, please contact the testing laboratoryfor alternative testing options.For additional information, please refer tohttp://education.LIFX/faq/[email or web address](This link if provided for information/educational purposes only.)THIS TEST WAS PERFORMED AT:[facility] [place] [id number] RODRIGES MD HPV mRNA E6/E7 [facility] 16 [facility] HPV 18/45 RNA [facility] 02/29/2024 9:12 AM EDT 03/05/2024 8:00 AM EDT us Latrice Forbes [facility] CYTOLOGY ORDERABLES F inal Result [facility] [address] [place] [address] [phone] * Pap Smear (02/29/2024 9:12 AM EDT) Swab Cervix uteri structure / Unknown 02/29/2024 9:12 AM EDT 03/05/2024 8:00 AM EDT Narrative [facility] - 03/27/2024 3:52 PM EDT ----- ------- Name: Nicky Lopez ?Age/Sex: 63/F ? : 1960 Unit#: [id number] ?? Attend Dr: LATRICE FORBES CNM ?Re02/29/24 ?Status: DEP REF ? Location: HO.HHCLNP ? Disch: ? ----- ------- SPEC : [id number] ? RECD: 03/05/24 ? STATUS: ??SOUT ? REQ NUM: [id number] ? [place]: 02/29/24 ? SUBM DR: LATRICE [...] 66, 68) ?? HPV testing performed by [facility], [place], [place]. ??See reference laboratory ?? portion of the EMR for entire report. ?Clinical Information LMP: Postmenopausal Previous PAP test: 01/2019, NIL/HPV- ? Material Received ?? ThinPrep-Cervical ----- ------- Signed (signature on file) MAC Toro (ASCP) 03/27/24 1553 ? ----- ------- ? END OF REPORT ? us Latrice Forbes [facility] CYTOLOGY ORDERABLES F inal Result [facility] [address] [place], [place] [phone] * (ABNORMAL) LIPID PANEL (06/10/2022 10:29 [...] liver disease. LDL Cholesterol Calculated 92 mg/dl [facility] Comment: Desirable LDL: ? less [...] >60 [facility] Comment: NOTE: ??For -Australian individuals, multiply the result ?by . ?? Chronic Kidney Disease: ??Estimated GFR < [...] Hollis MD HISTORICAL/NON ORDERABLE LABS Final Result [facility] [address] * HEPATITIS A,B,C PROFILE (12/26/2019 12:05 [...] Historical Provider HISTORICAL/NON ORDERABLE LABS Final Result [facility] [address] from Last 3 Months or Most Recently Relevant to Health Maintenance Insurance MEDICARE Member Subscriber Plan / Payer (Ef fective 2024-Present) Name:Nicky Lopez Member ID:[id number] Relation to Subscriber:Self Name:Ty Lopezdalia Subscriber ID:[id number] Payer ID:STATE Group ID:Not on file Type:Medicare Address: [facility]10X10 Room [facility] [address] [address] [facility] STANDARD Care Teams Library Manager Relationship Specialty Start Date End Date Sue Alicia MD [address] [place] [address] PCP - General Family Medicine 08/09/23
--- OUTSIDE RECORDS SUMMARY | 2025-02-19 06:25 | XMS_ITS | Encounter Summary ---
Author Organization [employer] [facility] Address [address] [facility] [address] 7t [place] [address] Care Team Providers Care Bank Vault Custodian Name Role Phone Sue Alicia MD Primary Care Provider [phone] Reason for Visit * Reason Onset Date Comments Med Refill 08/29/2023 Encounter Details Date Type Department Care Team ([facility] Contact Info) Description 08/29/2023 Telephone [facility] [address] [place], [place] [phone] Sue Alicia MD [address] [place], [place] [phone] Med Refill Social History Tobacco Use Types [...] with others, in a hotel, in a usp, living outside on the street, on a [...] (Flexeril) 10 MG tablet Please sent to [facility] [place], [place] - [address] [place] [address] documented in this encounter Plan of Treatment Upcoming Encounters Date Type Department Care Team (Late st Contact Info) Description 04/01/2025 10:30 AM EDT Clinical Support [facility] [address] [place] [address] Cookie Alcaraz RN 04/19/2025 11:15 AM EDT Office Visit [facility] [address] [place] [address] Sue Alicia MD [address] [place] [address] documented as of this encounter Visit Diagnoses Not on filedocumented in this encounter Additional Health Concerns Assessment Noted Time PHQ-9 Depression Total Score: 0 02/26/20 9:24 AM EDT documented as of this encounter Care Teams Bank Vault Custodian Relationship Specialty Start Date End Date Sue Alicia MD [address] [place] [address] PCP - General Family Medicine 08/09/23 documented as of this encounter
--- OUTSIDE RECORDS SUMMARY | 2025-02-19 06:25 | XMS_ITS | Encounter Summary ---
Author Organization [facility] [facility] Address [address] [facility] 7t [place] [address] Care Team Providers Care Advanced Manufacturing Vice President Name Role Phone Sue Alicia MD Primary Care Provider [phone] Reason for Visit * Reason Onset Date Comments Referral 04/02/2024 Encounter Details Date Type Department Care Team ([facility] Contact Info) Description 04/02/2024 Telephone [facility] [address] [place], [place] [phone] Sue Alicia MD [address] [place], [place] [phone] Referral Social History Tobacco Use Types Packs/Day [...] referral : DATE: n/a TIME: n/a Address: [address] [place] [address] Visits: all year long 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: [facility] title clerk Type of Specialist: title clerk Provider : Rhea Locke MD Address: [address] [place] [address] Fax #: [phone] documented in this encounter Plan of Treatment Upcoming Encounters Date Type Department Care Team (Late st Contact Info) Description 04/01/2025 10:30 AM EDT Clinical Support [facility]INE [address] [place] [phone] Cookie Alcaraz RN 04/19/2025 11:15 AM EDT Office Visit [facility] [address] [place] [address] Sue Alicia MD [address] [place] [phone] documented as of this encounter Visit Diagnoses Not on filedocumented in this encounter Additional Health Concerns Assessment Noted Time PHQ-9 Depression Total Score: 19 024 2:37 PM EDT documented as of this encounter Care Teams Advanced Manufacturing Vice President Relationship Specialty Start Date End Date Sue Alicia MD [address] [place] [address] PCP - General Family Medicine 08/09/23 documented as of this encounter
--- OUTSIDE RECORDS SUMMARY | 2025-02-19 06:25 | XMS_ITS | Encounter Summary ---
Author Organization [employer] [facility] Address [address] [facility] 7t [place] [address] Care Team Providers Care Senior Clinical Project Manager Name Role Phone Sue Alicia MD Primary Care Provider [phone] Reason for Visit * Reason Onset Date Comments Call Back Request 02/20/2024 Encounter Details Date Type Department Care Team ([facility] Contact Info) Description 02/20/2024 Telephone [facility] [address] [place], [place] [phone] Sue Alicia MD [address] [place], [place] [phone] Call Back Request Social History Tobacco Use [...] Description 04/01/2025 10:30 AM EDT Clinical Support [facility] [address] [place] [address] Cookie Alcaraz RN 04/19/2025 11:15 AM EDT Office Visit [facility] [address] [place] [address] Sue Alicia MD [address] [place] [address] documented as of this encounter Visit Diagnoses Not on filedocumented in this encounter Additional Health Concerns Assessment Noted Time PHQ-9 Depression Total Score: 19 024 2:37 PM EDT documented as of this encounter Care Teams Senior Clinical Project Manager Relationship Specialty Start Date End Date Sue Alicia MD [address] [place] [address] PCP - General Family Medicine 08/09/23 documented as of this encounter
--- OUTSIDE RECORDS SUMMARY | 2025-02-19 06:25 | XMS_ITS | Encounter Summary ---
Author Organization [facility] Address [address] [facility] 7t [place] [address] Care Team Providers Care Loading Machine Adjuster Name Role Phone Sue Alicia MD Primary Care Provider [phone] Reason for Referral * Consultation (Routine) - Closed Specialty Diagnoses / Procedures Referred By Saroj bauman Referred To Contact Vascular Surgery Diagnoses Pain due to varicose veins of both lower extremities Sue Alicia MD [address] [place] [address] Phone: tel: fax: [facility] Sur[facility] [address] [place], [place] Phone: tel: fax: Referral ID Status Reason Start Date Expiration Date V isits Requested Visits Authorized [id number] Closed Specialty Services Required 04/17/2024 04/17/2025 6 6 * Consultation (Routine) - Pending Review Specialty Diagnoses / Procedures Referred By Saroj bauman Referred To Contact Pulmonary Disease Diagnoses Mild intermittent asthma without complication Obstructive sleep apnea syndrome Sue Alicia MD [address] [place] [address] Phone: tel: fax: [facility]mon[facility] [address] [place] [address] [place], [place] Phone: tel: fax: Referral ID Status Reason Start Date Expiration Date Visits Requested Visits Authorized [id number] Pending Review Specialty Services Required 04/19/2024 04/19/2025 6 6 Encounter Details Date Type Department Care Team (Late st Contact Info) Description 04/03/2024 Orders Only [facility] [address] [place] [address] Sue Alicia MD [address] [place], [place] [phone] Mild intermittent asthma without complication (Primary Dx); [...] 10:30 AM EDT Clinical Support [facility] [address] [place] [phone] Cookie Alcaraz RN 04/19/2025 11:15 AM EDT Office Visit [facility] [address] [place] [address] [phone] Sue Alicia MD [address] [place] [phone] Scheduled Referrals Name Type Priority Associated Diagnoses [...] documented as of this encounter Care Teams Loading Machine Adjuster Relationship Specialty Start Date End Date Sue Alicia MD [address] [place] [address] [phone] PCP - General Family Medicine 08/09/23 documented as of this encounter
--- OUTSIDE RECORDS SUMMARY | 2025-02-19 06:25 | XMS_ITS | Clinical Summary ---
Author Organization [facility] Address [address] [place] [address] Care Team Providers Care Fur Sorter Name Role Phone Unavailable Primary Care Provider [...] Vaccine ( - 2023-2 5 season) 2024 Falls Risk Assessment 2024 Influenza Vaccine (Season Ended) 2025 RSV Immunization Adult Patie nts (1 - [...] age to complete this topic Meningococcal B Vaccine Aged Out No l onger eligible based on patient's age to complete [...]
--- OUTSIDE RECORDS SUMMARY | 2025-02-19 06:25 | XMS_ITS | Encounter Summary ---
Author Organization [employer] [facility] Address [address] [facility] 7t [place] [address] Care Team Providers Care Video Production Intern Name Role Phone Sue Alicia MD Primary Care Provider [phone] Reason for Visit * Reason Comments Med Refill Encounter Details Date Type Department Care Team ([facility] st Contact Info) Description 08/26/2023 Refill [facility] [address] [place], [place] [phone] Negrita Diaz FNP [address] [place] [address] Other chronic pain Social History Tobacco Use [...] Description 04/01/2025 10:30 AM EDT Clinical Support [facility] [address] [place] [phone] Cooike Alcaraz RN 04/19/2025 11:15 AM EDT Office Visit [facility] [address] [place] [place] [phone] Sue Alicia MD [address] [place] [address] documented as of this encounter Visit Diagnoses Diagnosis Other chronic pain documented in this encounter Additional Health Concerns Assessment Noted Time PHQ-9 Depression Total Score: 0 02/26/20 23 9:24 AM EDT documented as of this encounter Care Teams Video Production Intern Relationship Specialty Start Date End Date Sue Alicia MD [address] [place] [address] PCP - General Family Medicine 08/09/23 documented as of this encounter
--- OUTSIDE RECORDS SUMMARY | 2025-02-19 06:25 | XMS_ITS | Encounter Summary ---
Author Organization [employer] [facility] Address 75 [facility] 7t [place] [address] Care Team Providers Care Teamcenter Solution Architect Name Role Phone Miranda Ramirez Primary Care Provider [phone] Sue Alicia MD Primary Care Provider [phone] Reason for Visit * Reason Comments Med Refill Encounter Details Date Type Department Care Team ([facility] st Contact Info) Description 08/01/2023 Refill [facility] [address] [place] [address] Miranda Ramirez FNP [address] [place] [address] Dept [place] [address] Social History Tobacco Use Types Packs/Day Years [...] Description 04/01/2025 10:30 AM EDT Clinical Support [address] [address] Cookie Alcaraz RN 04/19/2025 11:15 AM EDT Office Visit [address] [address] Sue Alicia MD [address] [place] [address] documented as of this encounter Visit Diagnoses Not on filedocumented in this encounter Additional Health Concerns Assessment Noted Time PHQ-9 Depression Total Score: 0 02/26/20 23 9:24 AM EDT documented as of this encounter Care Teams Teamcenter Solution Architect Relationship Specialty Start Date End Date Miranda Ramirez FNP PCP - General Family Medicine 12/01/22 08/08/23 Sue Alicia MD [address] [place] [address] PCP - General Family Medicine 08/09/23 documented as of this encounter
--- OUTSIDE RECORDS SUMMARY | 2025-02-19 06:25 | XMS_ITS | Encounter Summary ---
Author Organization [employer] [facility] Address [address] [place] [address] 7t [place] [address] Care Team Providers Care Multimedia Specialist Name Role Phone Miranda Ramirez Primary Care Provider [phone] Sue Alicia MD Primary Care Provider [phone] Reason for Visit * Reason Comments Med Refill Encounter Details Date Type Department Care Team ([facility] Contact Info) Description 07/26/2023 Refill [facility] MEDICINE [address] [place] [phone] Miranda Ramirez FNP [address] [place] [address] Dept [place] [address] Shortness of breath Social History Tobacco Use [...] Upcoming Encounters Date Type Department Care Team ([facility] Contact Info) Description 04/01/2025 10:30 AM EDT Clinical Support [facility]INE [address] [place] [address] Cookie Alcaraz RN 04/19/2025 11:15 AM EDT Office Visit [facility] 230 [place] [address] Sue Alicia MD 230 [place] [address] documented as of this encounter Visit Diagnoses Diagnosis Shortness of breath documented in this encounter Additional Health Concerns Assessment Noted Time PHQ-9 Depression Total Score: 0 02/26/20 9:24 AM EDT documented as of this encounter Care Teams Multimedia Specialist Relationship Specialty Start Date End Date Miranda Ramirez FNP PCP - General Family Medicine 12/01/22 08/08/23 Sue Alicia MD [address] [place] [address] PCP - General Family Medicine 08/09/23 documented as of this encounter
--- OUTSIDE RECORDS SUMMARY | 2025-02-19 06:25 | XMS_ITS | Encounter Summary ---
Author Organization [email or web address] Address 75 [facility] 7t [place] [address] Care Team Providers Care Customer Engagement Representative Name Role Phone Sue Alicia MD Primary Care Provider [phone] Encounter Details Date Type Department Care Team ([facility] st Contact Info) Description 11/22/2023 Orders Only [facility] MED[facility]INE 230 [place], [place] [phone] Sue Alicia MD 230 [place], [place] [phone] Social History Tobacco Use Types Packs/Day Years [...] with others, in a hotel, in a longterm, living outside on the street, on a [...] Description 04/01/2025 10:30 AM EDT Clinical Support [address] [address] Cookie Alcaraz RN 04/19/2025 11:15 AM EDT Office Visit [address] [address] Sue Alicia MD [address] [place] [address] documented as of this encounter Visit Diagnoses Not on filedocumented in this encounter Additional Health Concerns Assessment Noted Time PHQ-9 Depression Total Score: 0 02/26/20 23 9:24 AM EDT documented as of this encounter Care Teams Customer Engagement Representative Relationship Specialty Start Date End Date Sue Alicia MD [address] [place] [address] PCP - General Family Medicine 08/09/23 documented as of this encounter
--- OUTSIDE RECORDS SUMMARY | 2025-02-19 06:25 | XMS_ITS | Encounter Summary ---
Author Organization [employer] Address 75 [facility] 7t [place] [address] Care Team Providers Care Silica Mixer Operator Name Role Phone Sue Alicia MD Primary Care Provider [phone] Reason for Visit * Reason Onset Date Comments Durable Medical Equipment 02/10/2024 Walker and Wheelchair Encounter Details Date Type Department Care Team ([facility] st Contact Info) Description 02/10/2024 Telephone [facility] MED[facility]INE 230 [place], [place] [phone] Sue Alicia MD 230 [place], [place] [phone] Durable Medical Equipment (Walker and Wheelchair) Social [...] Description 04/01/2025 10:30 AM EDT Clinical Support [facility] MEDICINE [address] [place] [phone] Cookie Alcaraz RN 04/19/2025 11:15 AM EDT Office Visit [facility] [address] [place] [phone] Sue Alicia MD 230 [place] [address] documented as of this encounter Visit Diagnoses Not on filedocumented in this encounter Additional Health Concerns Assessment Noted Time PHQ-9 Depression Total Score: 19 024 2:37 PM EDT documented as of this encounter Care Teams Silica Mixer Operator Relationship Specialty Start Date End Date Sue Alicia MD 230 [place] [address] PCP - General Family Medicine 08/09/23 documented as of this encounter
--- OUTSIDE RECORDS SUMMARY | 2025-02-19 06:25 | XMS_ITS | Encounter Summary ---
Author Organization [employer] [facility] Address 75 [facility] 7t [place] [address] Care Team Providers Care Dock Operations Supervisor Name Role Phone Sue Alicia MD Primary Care Provider [phone] Reason for Visit * Reason Onset Date Comments Med Refill 11/21/2023 Encounter Details Date Type Department Care Team ([facility] st Contact Info) Description 11/21/2023 Refill [facility] 230 [place], [place] [phone] Sue Alicia MD 230 [place], [place] [phone] Chronic low back pain, unspecified back pain [...] with others, in a hotel, in a residential, living outside on the street, on a [...] 10 MG tablet To be sent to: [facility] [place], [place] - [address] [place] [address] documented in this encounter Plan of Treatment Upcoming Encounters Date Type Department Care Team (Late st Contact Info) Description 04/01/2025 10:30 AM EDT Clinical Support [facility] [address] [place] [phone] Cookie Alcaraz RN 04/19/2025 11:15 AM EDT Office Visit [facility] [address] [place] [address] Sue Alicia MD [address] [place] [address] documented as of this encounter Visit Diagnoses Diagnosis Chronic low back pain, unspecified back pain laterality, unspecified whether sciatica present Rash and nonspecific skin eruption Rash and other nonspecific skin eruption documented in this encounter Additional Health Concerns Assessment Noted Time PHQ-9 Depression Total Score: 0 02/26/20 23 9:24 AM EDT documented as of this encounter Care Teams Dock Operations Supervisor Relationship Specialty Start Date End Date Sue Alicia MD 230 [place] [address] PCP - General Family Medicine 08/09/23 documented as of this encounter
--- OUTSIDE RECORDS SUMMARY | 2025-02-19 06:25 | XMS_ITS | Encounter Summary ---
Author Organization [employer] Address [address] [facility] [address] 7t [place] [address] Care Team Providers Care Flexboard Operator Name Role Phone Sue Alicia MD Primary Care Provider [phone] Encounter Details Date Type Department Care Team ([facility] st Contact Info) Description 04/06/2024 Telephone [facility]INE 230 [place], [place] [phone] Sue Alicia MD 230 [place] [address] Social History Tobacco Use Types Packs/Day Years [...] Description 04/01/2025 10:30 AM EDT Clinical Support [facility] [address] [place] [phone] Cookie Alcaraz RN 04/19/2025 11:15 AM EDT Office Visit [facility] [address] [place] [address] Sue Alicia MD [address] [place] [address] documented as of this encounter Visit Diagnoses Not on filedocumented in this encounter Additional Health Concerns Assessment Noted Time PHQ-9 Depression Total Score: 19 024 2:37 PM EDT documented as of this encounter Care Teams Flexboard Operator Relationship Specialty Start Date End Date Sue Alicia MD [address] [place] [address] PCP - General Family Medicine 08/09/23 documented as of this encounter
--- OUTSIDE RECORDS SUMMARY | 2025-02-19 06:25 | XMS_ITS | Encounter Summary ---
Author Organization [facility] Address 75 [facility] 7t [place] [address] Care Team Providers Care Factory Expert Name Role Phone Sue Alicia MD Primary Care Provider [phone] Reason for Visit * Reason Onset Date [...] (Late st Contact Info) Description 02/06/2024 Telephone [facility] 230 [place], [place] [phone] Sue Alicia MD 230 [place], [place] [phone] Letter for Housing (I called to get [...] Description 04/01/2025 10:30 AM EDT Clinical Support [facility] [address] [place] [address] Cookie Alcaraz RN 04/19/2025 11:15 AM EDT Office Visit [facility] [address] [place] [address] Sue Alicia MD [address] [place] [address] documented as of this encounter Visit Diagnoses Not on filedocumented in this encounter Additional Health Concerns Assessment Noted Time PHQ-9 Depression Total Score: 0 02/26/20 23 9:24 AM EDT documented as of this encounter Care Teams Factory Expert Relationship Specialty Start Date End Date Sue Alicia MD [address] [place] [address] PCP - General Family Medicine 08/09/23 documented as of this encounter
--- OUTSIDE RECORDS SUMMARY | 2025-02-19 06:25 | XMS_ITS | Encounter Summary ---
Author Organization [employer] [facility] Address [address] [facility] 7t [place] [address] Care Team Providers Care Stock Repairer Name Role Phone Sue Alicia MD Primary Care Provider [phone] Reason for Visit * Reason Comments Med Refill Encounter Details Date Type Department Care Team ([facility] Contact Info) Description 10/03/2024 Refill [facility]INE 230 [place], [place] [phone] Sue Alicia MD 230 [place], [place] [phone] Bronchitis Social History Tobacco Use Types Packs/Day [...] Description 04/01/2025 10:30 AM EDT Clinical Support [facility] [address] [place] [address] Cookie Alcaraz RN 04/19/2025 11:15 AM EDT Office Visit [facility] [address] [place] [address] Sue Alicia MD [address] [place] [address] documented as of this encounter Visit Diagnoses Diagnosis Bronchitis Bronchitis, not specified as acute or chronic documented in this encounter Additional Health Concerns Assessment Noted Time PHQ-9 Depression Total Score: 19 024 2:37 PM EDT documented as of this encounter Care Teams Stock Repairer Relationship Specialty Start Date End Date Sue Alicia MD [address] [place] [address] PCP - General Family Medicine 08/09/23 documented as of this encounter
--- OUTSIDE RECORDS SUMMARY | 2025-02-19 06:25 | XMS_ITS | Encounter Summary ---
Author Organization [employer] Address [address] [facility] [address] 7t [place] [address] Care Team Providers Care Health Care Facility Administrator Name Role Phone Sue Alicia MD Primary Care Provider [phone] Encounter Details Date Type Department Care Team ([facility] st Contact Info) Description 09/17/2024 Orders Only [facility] 230 [place] [address] Sue Alicia MD 230 [place], [place] [phone] Bronchitis (Primary Dx) Social History Tobacco Use [...] EDT Clinical Support [facility] [address] [place] [address] Cookie Alcaraz RN 04/19/2025 11:15 AM EDT Office Visit [facility] [address] [place] [address] Sue Alicia MD [address] [place] [address] documented as of this encounter Visit Diagnoses Diagnosis Bronchitis- Primary Bronchitis, not specified as acute or chronic documented in this encounter Additional Health Concerns Assessment Noted Time PHQ-9 Depression Total Score: 19 024 2:37 PM EDT documented as of this encounter Care Teams Health Care Facility Administrator Relationship Specialty Start Date End Date Sue Alicia MD [address] [place] [address] PCP - General Family Medicine 08/09/23 documented as of this encounter
--- OUTSIDE RECORDS SUMMARY | 2025-02-19 06:25 | XMS_ITS | Encounter Summary ---
Author Organization [employer] Address [address] [facility] [address] 7t [place] [address] Care Team Providers Care Welder Plasma Arc Name Role Phone Sue Alicia MD Primary Care Provider [phone] Reason for Visit * Reason Comments Med Refill Encounter Details Date Type Department Care Team ([facility] st Contact Info) Description 08/28/2024 Refill [facility] [address] [place], [place] [phone] Sue Alicia MD 230 [place] [address] Chronic low back pain, unspecified back pain [...] Description 04/01/2025 10:30 AM EDT Clinical Support [facility] [address] [place] [phone] Cookie Alcaraz RN 04/19/2025 11:15 AM EDT Office Visit [facility] [address] [place] [address] Sue Alicia MD [address] [place] [address] documented as of this encounter Visit Diagnoses Diagnosis Chronic low back pain, unspecified back pain laterality, unspecified whether sciatica present documented in this encounter Additional Health Concerns Assessment Noted Time PHQ-9 Depression Total Score: 19 024 2:37 PM EDT documented as of this encounter Care Teams Welder Plasma Arc Relationship Specialty Start Date End Date Sue Alicia MD [address] [place] [address] PCP - General Family Medicine 08/09/23 documented as of this encounter
== END 2025-02-19 06:22 | disposition home or self-care (01) ==
LOC: CF 06:21
PROVIDERS: Visit Provider Anesthesiology
DX: Z13.89 Encounter for screening for other disorder (principal)

== ENCOUNTER 2025-03-06 08:17 | Outpatient (AMB) | payer MEDICARE, MEDICAID, SELFPAY ==
--- NOTE | 2025-03-06 08:19 | A.OFFVIS_ITS ---
Vital Signs 03/06/25 08:28 Height 5 ft 2 in Weight 140 lb 3.424 oz BMI 25.6 BP 100/62 Blood Pressure Location Lt brachial Position Sitting Pulse 52 Pulse Source Pulse Oximeter Pulse Oximetry (%) 98 Oxygen Delivery Method Room Air Intake Visit Reasons: arthritis /UCTD on / 1 mo f/u due req Intake Note: Patient presents for Arthritis/UCTD follow up. Fiber Optic Assembly Worker Required: Yes Fiber Optic Assembly Worker Language: Formulation Technician Services: Fiber Optic Assembly Worker Present Fiber Optic Assembly Worker Name: Katelyn Nowak [id number] Information Interpreted: non-clinical & clinical Allergies aspirin [ASA] Allergy (Intermediate, Verified 03/06/25 08:26) ITCHY, HOT, AND HEADACHE calcium Allergy (Intermediate, Verified 03/06/25 08:26) Vomiting Penicillins Allergy (Intermediate, Verified 03/06/25 08:26) RASH tofacitinib [Xeljanz] Allergy (Intermediate, Verified 03/06/25 08:26) chest pain, headaches sulfasalazine Allergy (Unknown, Verified 03/06/25 08:26) unknown Medication List - Last Reconciled 03/06/25 by Samantha Costa MD albuterol sulfate 90 mcg/actuation (ProAir HFA) 2 puffs PO Q6H PRN albuterol sulfate 1.25 mg (3 mL) inhalation Q4-6H PRN 30 days alcohol swabs (Alcohol Prep Pads) USE DIRECTED SIX TIMES DAILY allopurinol 200 mg (2 x 100 mg) PO QPM 90 days aripiprazole (Abilify) 10 mg PO .every 2 days artifi.tears(hypromellose)(PF) 0.3% 1 drp ophthalmic (eye) Q4-6H PRN atorvastatin 20 mg PO DAILY blood sugar diagnostic (FreeStyle Lite Strips) As directed blood-glucose meter (FreeStyle [place] Lite kit) As directed cane As directed cholecalciferol (vitamin D3) 1,250 mcg PO QWEEK 90 days docusate sodium (Colace) 100 mg PO BID furosemide 40 mg PO .every 2 days gabapentin 900 mg (3 x 300 mg) PO BEDTIME 30 days hydrocodone-acetaminophen 5-325 mg 1 tab PO Q6H PRN hydroxychloroquine (Plaquenil) 200 mg PO BID irbesartan 75 mg PO DAILY levothyroxine 75 mcg PO DAILY melatonin 10 mg PO BEDTIME PRN metformin ER 1,000 mg (2 x 500 mg) PO BID metoprolol tartrate 25 mg PO BID naloxone 4 mg/actuation (Narcan) 1 spray intranasal Q2M omeprazole magnesium (Prilosec OTC) 20 mg PO DAILY pen needle, diabetic (Pentips Pen Needle) USE 1 DAILY WITH VICTOZA polyethylene glycol 3350 (Miralax) 17 grams PO DAILY prednisone 5 mg PO DAILY 90 days psyllium husk (Metamucil) 1 tbsp PO BID semaglutide (Ozempic) 1 mg (0.75 mL) subcut QWEEK sennosides (senna) 8.6 mg PO DAILY zolpidem (Ambien) 5 mg PO BEDTIME PRN HPI Comments Details: Patient is a 63 y.o. female with asthma, hypothyroidism, hyperlipidemia, uncontrolled type 2 diabetes, primary hyperparathyroidism status post parathyroidectomy, degenerative disc disease involving the lumbar and cervical spine, seronegative rheumatoid arthritis/undifferentiated connective tissue disease here today for follow up Interval History: Patient last seen 01/24/2025 with it. At that time she was complaining of widespread pain. After a very long discussion with the patient and review of her results it made more sense that she had undifferentiated connective tissue disease rather than seronegative rheumatoid arthritis and the Humira was stopped and she was placed on Plaquenil monotherapy and continued on her prednisone 5 mg. Since stopping the prednisone she noted improvement in her pain. Planning to undergo kidney biopsy 03/12 at [facility] Complaining of small macular rashes all over her body Rheumatologic History: Patient states that she presented in the with joint pain, rash and was diagnosed with lupus by a physician in [place]. She was started on prednisone and medication. 1st notes seen in the [facility] live is from 08/21/2020 at that time she was on leflunomide and prednisone for seronegative inflammatory arthritis/seronegative RA. There were concerns brought in by patient that she has lupus however repeat serologies done here were unremarkable at that time. She then followed up with Dr. Carrillo 03/22/2022 hand that that time the leflunomide was stopped as it was unlikely that she was taking it and she was considered to be in stable condition. She then followed up with us about 2 years later with Jolly Quinonez 11/23/2023. During that visit she stated that she initially saw a doctor [place] in 2012 at that time there was a positive PHYLLIS and positive CREW PERSON and he thought she had lupus/undifferentiated connective tissue disease and her symptoms were initially controlled by prednisone. During that October visit she did not recall previously being on hydroxychloroquine, methotrexate, azathioprine, Benlysta or any other medications that are considered steroid sparing for lupus. She has also seen Dr. Reyes and Dr. Zepeda in the past but those records are not currently available. During that October visit Jolly Quinonez thought that she was having a flare of her underlying autoimmune disease and restarted her on leflunomide 10 mg At some point it was thought that the leflunomide was not enough and she was started on Humira Medication History: Xeljanz 2020 for 2-3 doses: stopped due to nausea, headaches and chest pain after 2 doses Actemra ?duration: stopped due to elevated BP Kevzara (Sarilumab): stopped 2/2 extreme fatigue and subjective fluid retention Sulfasalazine: stopped 2/2 GI issues Plaquenil: Stopped 2/2 side effects Leflunomide: 2020 - 2021. Stopped since patient thought to be in remission and she was unlikely taking same Humira started 12/2023 Current Rheumatology Medications: Plaquenil 400mg daily Prednisone 5mg Gabapentin 900 mg bedtime [facility] Medical History (Updated 03/06/25 @ 08:47 by Samantha Costa MD) Undifferentiated connective tissue disease Lipoma On allopurinol therapy Gout Breast calcification, right Positive PHYLLIS (antinuclear antibody) Fibromyalgia History of primary hyperparathyroidism Osteopenia Dyslipidemia Hypothyroidism LONA on CPAP Bronchial asthma Epidermal inclusion cyst Morbid obesity Gout of right foot PHYLLIS positive Seronegative rheumatoid arthritis Diabetes type 2, uncontrolled Surgical History History of surgery Hx of excision of mass History of kidney surgery S/P breast lumpectomy H/O parathyroidectomy Hx of cholecystectomy H/O tubal ligation Family History Daughter History of breast cancer Father Cirrhosis Diabetes Arthritis Mother Arthritis Sister Diabetes Social History Alcohol intake: never Patient Tobacco Use Status: Former Tobacco user Tobacco use type: Cigarette Substance Use Type: Marijuana Female Reproductive History Menstrual Age of Menarche: 11 Review of Systems Const Details: Review of Systems Constitutional: Denies fever, chills, weight loss ENT: Denies vision changes, eye pain or eye redness, dental caries, dry mouth GI: Denies nausea, vomiting, diarrhea, abdominal pain, change in BM Pulm: Denies SOB, PEREZ, hemoptysis, wheezing Cards: Denies chest pain, palpitations Skin: Denies Raynaud's, nail changes, photosensitivity, MATTRESS AND BOXSPRINGS SUPERVISOR: Denies headaches, weakness, paresthesias, recurrent falls MSK: as per HPI All other systems reviewed and are unremarkable except noted above Physical Exam Vital Signs: Last Vital Signs Pulse 52 03/06/25 08:28 BP 100/62 03/06/25 08:28 Pulse Ox 98 03/06/25 08:28 Oxygen Delivery Method Room Air 03/06/25 08:28 BMI result Body Mass Index 25.6 Vital signs reviewed Physical Examination CONSTITUITIONAL Patient alert and cooperative. Well appearing and in no apparent painful distress HEENT Conjunctiva and sclera clear. ?Pupils equal round and reactive to light. ?No lymphadenopathy. ? CHEST/RESPIRATORY SYSTEM Normal respiratory effort and able to speak in complete sentences. ?Clear to auscultation bilaterally. ?No crackles, rales, rhonchi, wheezes heard. CARDIAC SYSTEM Regular rate and rhythm. ?S1 and S2 heard no murmurs. ?Radial pulses intact bilaterally MSK Hands: ?Patient able to make a fist but has tenderness to palpation of every part of her hands: MCPs, PIPs DIPs the digits of the dorsum of the finger everywhere Wrists: ?Full range of motion at the wrists without pain. ?Tenderness to palpation of the wrist and upper forearm Elbows: Full range of motion without pain. No tenderness, weakness, swelling, increased warmth or erythema. Shoulders: Full range of motion without pain. No tenderness, weakness, swelling, increased warmth or erythema. Hip bursa: Tenderness to palpation Knees: ?Full range of motion. ?No tenderness, swelling, increased warmth or e rythema.?No effusion or crepitations Ankles: Full range of motion. ?No tenderness, swelling, increased warmth or erythema.? Feet: ?Negative squeeze test. ?No tenderness to palpation or swelling of the MTPs. Tender points:?Tenderness to palpation of the bilateral trapezius, supraspinatus, greater trochanters, anterior costochondral junctions, bilateral gluteal areas, bilateral suboccipital muscle insertions SKIN Skin intact without rashes. Results Reviewed Results Reviewed: Laboratory Tests 01/21/25 10:35 WBC 10.5 RBC 4.20 Hgb 12.5 Hct 38.5 Plt Count 327 ESR 20 Sodium 141 Potassium 3.8 Chloride 105 Carbon Dioxide 28 BUN 24 H Creatinine 1.39 AST 24 ALT 20 Alkaline Phosphatase 46 C-Reactive Protein 0.15 25-OH Vitamin D Total 14 L Immunology Labs 04/11/24 01/21/25 15:34 10:35 Double Strand DNA Ab 1 Complement C3 78 L 132 Complement C4 18 32 Assessment & Plan Assessment & Plan (1) Undifferentiated connective tissue disease: Comment: Humira started 12/2023 Recent Leflunomide 20mg daily nausea and vomiting. Tried Xeljanz but it caused nausea, headaches and chest pain after 2 doses so she stopped the medication. Could not tolerate Actemra due to increased blood pressure. Could not tolerate Kevzara due to extreme fatigue and subjective fluid retention. She could not tolderate sulfasalazine. She could not previously take plaquenil because of side effects. Code(s): M35.9 - Systemic involvement of connective tissue, unspecified Category: Medical Plan: #UCTD Patient is a 64-year-old female with undifferentiated connective tissue disease patient here for follow up. Currently doing better on Plaquenil monotherapy. Plans to get kidney biopsy 03/12. Plan - Hydroxychloroquine 200mg bid - Follow up biopsy results - RTC 4 months - Labs before visit: CBC, CMP, ESR, CRP, C3, C4, dsDNA, UA, UPC (2) Fibromyalgia: Code(s): M79.7 - Fibromyalgia Category: Medical Plan: #Fibromyalgia Patient definitely has fibromyalgia complicating her underlying disease. She has several fibromyalgia tender points on examination. Currently on gabapentin 900 mg at night and we will continue this. Also requesting Flexeril Plan - Gabapentin 900mg nightly - Flexeril 5mg nightly (3) Gout: Code(s): M10.9 - Gout, unspecified Category: Medical Qualifiers: Chronicity: chronic Gout etiology: idiopathic Gout site: unspecified site Presence of tophus: without tophus Qualified Code(s): M1A.00X0 - I diopathic chronic gout, unspecified site, without tophus (tophi) Plan: #Gout Currently stable on allopurinol therapy. No recent flares UA at goal (4) Osteopenia: Comment: DEXA 2021. AP Spine -0.2, Left femur neck -1.8, Left femur total 0.1. FRAX 10.8/1.6 DEXA 2023: AP Spine -0.4, Left femur neck -2.0, Left femur total -0.5. FRAX 12.7/2.5 Code(s): M85.80 - Other specified disorders of bone density and structure, unspecified site Category: Medical Qualifiers: Osteopenia location: multiple sites Qualified Code(s): M85.89 - Other specified disorders of bone density and structure, multiple sites Plan: #Osteopenia Patient with osteopenia based on 2023 DEXA scan. FRAX index not indicative of treatment at this time. Continue vitamin-D supplementation (5) On allopurinol therapy: Code(s): Z79.899 - Other alf (current) drug therapy Category: Medical Plan: #Long-term Current Use of Allopurinol Risks and benefits of allopurinol discussed with patient Benefits include decreased gout flares, remission of gout and reduction of tophi Risks include allopurinol hypersensitivity syndrome which is a severe cutaneous adverse reaction associated with allopurinol use particularly in patients who are HLA B*5801 positive, increased transaminases, GI upset including diarrhea, nausea and vomiting, and other dermatologic manifestations. 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: Code(s): Z79.52 - terminal gauger supervisor (current) use of systemic steroids Category: Medical Plan: #Long-term Use of Steroids Discussed with patient the risks and benefits of steroid for managing the rheumatic condition Benefits include: - Reduced pain, improved mobility, increased participation in activities, and decreased progression of disease Risks include: - GI upset, potential ultrasound worsening or formation (especially in patients > 65 years old), elevated blood pressure/worsening hypertension, elevated blood sugar/worsening diabetes control, worsening of bone density, elevated lipids/worsening triglycerides, cataract formation, weight gain Recommended using proton pump inhibitors (PPIs) for the duration of steroid use to reduce the risk of gastric ulcers and vitamin-D daily to reduce the risk of osteoporosis Labs checked: ?A1c, T spot, hepatitis-B and C serologies Pneumocystis jiroveci prophylaxis: ?Patient with risk factors including steroids greater than 50 mg for more than 30 days, age greater than 60 years, and lung involvement from underlying rheumatic disease requires prophylaxis and will be given so Plan I spent 45 minutes reviewing the record and labs, seeing the patient, discussing the treatment plan and documenting in the medical record Orders: Orders Vitamin D 25-OH Total Today E55.9 - Vitamin D deficiency, unspecified Referrals Dermatology Referral M35.9 - Systemic involvement of connective tissue, unspecified, R21 - Rash and other nonspecific skin eruption Medications: New cyclobenzaprine 5 mg PO BEDTIME 90 tabs 1RF M79.7 - Fibromyalgia Refilled prednisone 5 mg PO DAILY 90 days 90 tabs 1RF M06.00 - Rheumatoid arthritis without rheumatoid factor, unspecified site, Z79.52 - terminal gauger supervisor (current) use of systemic steroids hydroxychloroquine (Plaquenil) 200 mg PO BID 180 tabs 1RF M35.9 - Systemic involvement of connective tissue, unspecified gabapentin 900 mg (3 x 300 mg) PO BEDTIME 30 days 90 caps 5RF M79.7 - Fibromyalgia Coding Level of Care Code Est Pt Level 4 (41397) Complex EM visit Add On G2211 Diagnoses Undifferentiated connective tissue disease M35.9 Fibromyalgia M79.7 Idiopathic chronic gout without tophus, unspecified site M1A.00X0 Chronicity: chronic Gout etiology: idiopathic Gout site: unspecified site Presence of tophus: without tophus Osteopenia of multiple sites M85.89 Osteopenia location: multiple sites On allopurinol therapy Z79.899 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
--- OUTSIDE RECORDS SUMMARY | 2025-03-06 08:24 | XMS_ITS | Encounter Summary ---
Author Organization [employer] Address [address] [place] [address] Care Team Providers Care Manager Wind Name Role Phone Sue Alicia MD Primary Care Provider [phone] Reason for Visit * Reason Onset Date Comments Durable Medical Equipment 02/10/2024 Walker and Wheelchair Encounter Details Date Type Department Care Team ([facility] st Contact Info) Description 02/10/2024 Telephone [facility] [address] [place] [address] Sue Alicia MD [address] [place] [address] Durable Medical Equipment (Walker and Wheelchair) Social [...] 04/01/2025 10:30 AM EDT Clinical Support [facility] [address] [place] [phone] Cookie Alcaraz RN 04/19/2025 11:15 AM EDT Office Visit [facility] [address] [place] [phone] Sue Alicia MD [address] [place] [address] documented as of this encounter Visit Diagnoses Not on filedocumented in this encounter Additional Health Concerns Assessment Noted Time PHQ-9 Depression Total Score: 19 024 2:37 PM EDT documented as of this encounter Care Teams Manager Wind Relationship Specialty Start Date End Date Sue Alicia MD [address] [place] [address] PCP - General Family Medicine 08/09/23 documented as of this encounter
--- OUTSIDE RECORDS SUMMARY | 2025-03-06 08:24 | XMS_ITS | Encounter Summary ---
Author Organization [employer] Address [address] [facility] 7t [place] [address] Care Team Providers Care Metal Tank Builder Name Role Phone Sue Alicia MD Primary Care Provider [phone] Reason for Referral * Consultation (Routine) - Closed Specialty Diagnoses / Procedures Referred By Saroj bauman Referred To Contact Vascular Surgery Diagnoses Pain due to varicose veins of both lower extremities Sue Alicia MD [address] [place] [address] Phone: tel: fax: [facility] [address] [place], [place] Phone: tel: fax: Referral ID Status Reason Start Date Expiration Date V isits Requested Visits Authorized [id number] Closed Specialty Services Required 04/17/2024 04/17/2025 6 6 * Consultation (Routine) - Pending Review Specialty Diagnoses / Procedures Referred By Saroj bauman Referred To Contact Pulmonary Disease Diagnoses Mild intermittent asthma without complication Obstructive sleep apnea syndrome Sue Alicia MD [address] [place] [address] Phone: tel: fax: [facility] [address] [place], [place] Phone: tel: fax: Referral ID Status Reason Start Date Expiration Date Visits Requested Visits Authorized [id number] Pending Review Specialty Services Required 04/19/2024 04/19/2025 6 6 Encounter Details Date Type Department Care Team (Late st Contact Info) Description 04/03/2024 Orders Only [facility] [address] [place] [address] Sue Alicia MD [address] [place], [place] [phone] Mild intermittent asthma without complication (Primary Dx); [...] Description 04/01/2025 10:30 AM EDT Clinical Support [facility] [address] [place] [phone] Cookie Alcaraz RN 04/19/2025 11:15 AM EDT Office Visit [address] [address] Sue Alicia MD [address] [place] [address] Scheduled Referrals Name Type Priority Associated Diagnoses [...] documented as of this encounter Care Teams Metal Tank Builder Relationship Specialty Start Date End Date Sue Alicia MD [address] [place] [phone] PCP - General Family Medicine 08/09/23 documented as of this encounter
--- OUTSIDE RECORDS SUMMARY | 2025-03-06 08:24 | XMS_ITS | Encounter Summary ---
Author Organization [employer] Address [address] [address] [place] [address] Care Team Providers Care Starting Gate Driver Name Role Phone Sue Alicia MD Primary Care Provider Reason for Visit * Reason Onset Date Comments Med Refill 02/17/2024 Encounter Details Date Type Department Care Team ([facility] Contact Info) Description 02/17/[address] [facility] [address] [place], [place] [phone] Sue Alicia MD [address] [place], [place] [phone] Med Refill Social History Tobacco Use Types [...] 5 MG tablet To be sent to: [facility] [place], [place] - [address] [place] [address] documented in this encounter Plan of Treatment Upcoming Encounters Date Type Department Care Team ([facility] st Contact Info) Description 04/01/2025 10:30 AM EDT Clinical Support [facility] [address] [place] [phone] Cookie Alcaraz RN 04/19/2025 11:15 AM EDT Office Visit [facility] [address] [place] [phone] Sue Alicia MD [address] [place] [phone] documented as of this encounter Visit Diagnoses Not on filedocumented in this encounter Additional Health Concerns Assessment Noted Time PHQ-9 Depression Total Score: 19 024 2:37 PM EDT documented as of this encounter Care Teams Starting Gate Driver Relationship Specialty Start Date End Date Sue Alicia MD [address] [place] [address] PCP - General Family Medicine 08/09/23 documented as of this encounter
--- OUTSIDE RECORDS SUMMARY | 2025-03-06 08:24 | XMS_ITS | Encounter Summary ---
Author Organization [employer] Address [address] [place] [address] Care Team Providers Care Cage Fighter Name Role Phone Sue Alicia MD Primary Care Provider [phone] Encounter Details Date Type Department Care Team ([facility] st Contact Info) Description 04/06/2024 Telephone [facility] [address] [place], [place] [phone] Sue Alicia MD [address] [place], [place] [phone] Social History Tobacco Use Types Packs/Day Years [...] your housing situation today? I have george vianey 02/08/[address] you li [...] EDT Clinical Support [facility] [address] [place] [phone] Cookie Alcaraz RN 04/19/2025 11:15 AM EDT Office Visit [facility] [address] [place] [phone] Sue Alicia MD [address] [place] [phone] documented as of this encounter Visit Diagnoses Not on filedocumented in this encounter Additional Health Concerns Assessment Noted Time PHQ-9 Depression Total Score: 19 024 2:37 PM EDT documented as of this encounter Care Teams Cage Fighter Relationship Specialty Start Date End Date Sue Alicia MD [address] [place] [address] PCP - General Family Medicine 08/09/23 documented as of this encounter
--- OUTSIDE RECORDS SUMMARY | 2025-03-06 08:24 | XMS_ITS | Encounter Summary ---
Author Organization [employer] Address [address] [place] [address] Care Team Providers Care Service Cashier Name Role Phone Sue Alicia MD Primary Care Provider [phone] Reason for Visit * Reason Onset Date Comments Med Refill 05/09/2024 Encounter Details Date Type Department Care Team ([facility] Contact Info) Description 05/09/2024 Telephone [facility] [address] [place], [place] [phone] Sue Alicia MD [address] [place], [place] [phone] Med Refill Social History Tobacco Use Types [...] EDT Script was sent on 05/04/24 to [facility]. * Telephone Encounter - Jamal Linder - 05/09/2024 9:46 AM EDT TC from pt requesting medication refill. Medications needing refill : cyclobenzaprine (Flexeril) 5 MG tablet To be sent to: [facility] documented in this encounter Plan of Treatment Upcoming Encounters Date Type Department Care Team (Late st Contact Info) Description 04/01/2025 10:30 AM EDT Clinical Support [facility] [address] [place] [phone] Cookie Alcaraz RN 04/19/2025 11:15 AM EDT Office Visit [facility] [address] [place] [phone] Sue Alicia MD [address] [place] [address] documented as of this encounter Visit Diagnoses Not on filedocumented in this encounter Additional Health Concerns Assessment Noted Time PHQ-9 Depression Total Score: 19 024 2:37 PM EDT documented as of this encounter Care Teams Service Cashier Relationship Specialty Start Date End Date Sue Alicia MD [address] [facility] [place] [address] PCP - General Family Medicine 08/09/23 documented as of this encounter
--- OUTSIDE RECORDS SUMMARY | 2025-03-06 08:24 | XMS_ITS | Encounter Summary ---
Author Organization [employer] Address [address] 7t [place] [address] Care Team Providers Care Feather Renovator Name Role Phone Sue Alicia MD Primary Care Provider [phone] Reason for Visit * Reason Onset Date [...] (Late st Contact Info) Description 02/06/2024 Telephone [facility] 230 [place], [place] [phone] Sue Alicia MD 230 [place], [place] [phone] Letter for Housing (I called to get [...] Description 04/01/2025 10:30 AM EDT Clinical Support [address] [address] Cookie Alcaraz RN 04/19/2025 11:15 AM EDT Office Visit [facility] [address] [place] [address] Sue Alicia MD [address] [place] [address] documented as of this encounter Visit Diagnoses Not on filedocumented in this encounter Additional Health Concerns Assessment Noted Time PHQ-9 Depression Total Score: 0 02/26/20 23 9:24 AM EDT documented as of this encounter Care Teams Feather Renovator Relationship Specialty Start Date End Date Sue Alicia MD [address] [place] [address] PCP - General Family Medicine 08/09/23 documented as of this encounter
--- OUTSIDE RECORDS SUMMARY | 2025-03-06 08:24 | XMS_ITS | Encounter Summary ---
Author Organization [employer] Address [address] 7t [place] [address] Care Team Providers Care Publisher Assistant Name Role Phone Sue Alicia MD Primary Care Provider [phone] Reason for Visit * Reason Comments Med Refill Encounter Details Date Type Department Care Team ([facility] st Contact Info) Description 03/04/2025 Refill [facility] 230 [place], [place] [phone] Sue Alicia MD 230 [place], [place] [phone] Type 2 diabetes mellitus with diabetic chronic kidney disease ([facility]) Social History Tobacco Use Types Packs/Day Years [...] Description 04/01/2025 10:30 AM EDT Clinical Support [facility] [address] [place] [address] Cookie Alcaraz RN 04/19/2025 11:15 AM EDT Office Visit [facility] [address] [place] [address] Sue Alicia MD [address] [place] [address] documented as of this encounter Visit Diagnoses Diagnosis Type 2 diabetes mellitus with diabetic chronic kidney disease (CMS/HCC) documented in this encounter Additional Health Concerns Assessment Noted Time PHQ-9 Depression Total Score: 19 024 2:37 PM EDT documented as of this encounter Care Teams Publisher Assistant Relationship Specialty Start Date End Date Sue Alicia MD [address] [place] [address] PCP - General Family Medicine 08/09/23 documented as of this encounter
--- OUTSIDE RECORDS SUMMARY | 2025-03-06 08:24 | XMS_ITS | Encounter Summary ---
Author Organization [employer] Address [address] [facility] 7t [place] [address] Care Team Providers Care Balance Assembler Name Role Phone Sue Alicia MD Primary Care Provider [phone] Encounter Details Date Type Department Care Team ([facility] st Contact Info) Description 11/22/2023 Orders Only [facility] 230 [place], [place] [phone] Sue Alicia MD 230 [place], [place] [phone] Social History Tobacco Use Types Packs/Day Years [...] with others, in a hotel, in a prison, living outside on the street, on a [...] Description 04/01/2025 10:30 AM EDT Clinical Support [address] [address] Cookie Alcaraz RN 04/19/2025 11:15 AM EDT Office Visit [facility] [address] [place] [address] Sue Alicia MD [address] [place] [address] documented as of this encounter Visit Diagnoses Not on filedocumented in this encounter Additional Health Concerns Assessment Noted Time PHQ-9 Depression Total Score: 0 02/26/20 23 9:24 AM EDT documented as of this encounter Care Teams Balance Assembler Relationship Specialty Start Date End Date Sue Alicia MD [address] [place] [address] PCP - General Family Medicine 08/09/23 documented as of this encounter
--- OUTSIDE RECORDS SUMMARY | 2025-03-06 08:24 | XMS_ITS | Encounter Summary ---
Author Organization [employer] Address [address] [facility] [address] 7t [place] [address] Care Team Providers Care Vp Communications Name Role Phone Sue Alicia MD Primary Care Provider [phone] Reason for Visit * Reason Comments Med Refill Encounter Details Date Type Department Care Team ([facility] st Contact Info) Description 12/11/2024 Refill [facility] 230 [place], [place] [phone] Sue Alicia MD 230 [place], [place] [phone] Chronic low back pain, unspecified back pain [...] 10:30 AM EDT Clinical Support [facility] [address] [place] [address] Cookie Alcaraz RN 04/19/2025 11:15 AM EDT Office Visit [facility] [address] [place] [address] Sue Alicia MD [address] [place] [address] documented as of this encounter Visit Diagnoses Diagnosis Chronic low back pain, unspecified back pain laterality, unspecified whether sciatica present documented in this encounter Additional Health Concerns Assessment Noted Time PHQ-9 Depression Total Score: 19 024 2:37 PM EDT documented as of this encounter Care Teams Vp Communications Relationship Specialty Start Date End Date Sue Alicia MD [address] [place] [address] PCP - General Family Medicine 08/09/23 documented as of this encounter
--- OUTSIDE RECORDS SUMMARY | 2025-03-06 08:24 | XMS_ITS | Clinical Summary ---
Author Organization [facility] 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) (Primary Dx); Stage 3b chronic kidney disease (HCC); 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> (HCC); Benign essential hypertension 12/10/2024 3:45 PM EST Office Visit [facility] [address] [place] [address] Ben Cummins MD Systemic lupus erythematosus-associated antiphospholipid [...] Sign Reading Time Taken Comments Blood Pressure 108/68 02/28/2025 3:48 PM EDT Pulse 68 02/28/2025 3:48 PM EDT Temperature - - Respiratory Rate - - Oxygen Saturation 99% 02/28/2025 3:48 PM EDT Inhaled Oxygen Concentration - - Weight 62 kg (136 lb 9.6 oz) 12/10/2024 3:34 PM EST Height 157.5 cm (5' 2 ) 11/19/2019 12:00 PM EST Body Mass Index 24.98 11/19/2019 12:00 PM EST Plan of Treatment Upcoming Encounters Date Type Department Care Team (Latest Contact Info) Description 03/07/2025 Orders Only [facility] [address] [place] [address] [place] [address] Ben Cummins MD [address] [facility] [address] [place] [address] Systemic lupus erythematosus-associated antiphospholipid syndrome (HCC); Stage 3b chronic kidney disease (HCC); 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> (HCC); Benign essential hypertension 04/08/2025 4:00 PM EDT Office Visit [facility] [address] [place] [address] [place] [phone] Ben Cummins MD [address] [facility] [facility] [address] [place] [address] Health Maintenance Due Date Last Done Comments [...] ? sample. Estimated Average Glucose 114 mg/dL GORDO Comment: eAG = Estimated average glucose which is %A1C expressed as average glucose, using the formula of the R7O-Mcdeeud Average Glucose study (ADAG), Diabetes Care, Vol.31,#8, May. 2007 Blood (Blood, Venous) 10/26/2023 9:17 AM EST 10/26/2023 9:17 AM EST us Ben Cummins MD LAB BLOOD ORDERABLES Final Re sult REINALDO from Last 3 Months or Most Recently Relevant to Health Maintenance Insurance [address] [place] [address] Medicaid [place] [address] [place] [address] [place] Care Teams Regulatory Compliance Specialist Relationship Specialty Start Date End Date Gideon Mccormack PCP - General Internal Medicine 12/30/20
--- OUTSIDE RECORDS SUMMARY | 2025-03-06 08:24 | XMS_ITS | Encounter Summary ---
Author Organization [employer] Address [address] [address] [facility] [address] [facility] [address] 7t [place] [address] Care Team Providers Care Shank Breaker Name Role Phone Sue Alicia MD Primary Care Provider [phone] Reason for Visit * Reason Onset Date Comments Referral 04/02/2024 Encounter Details Date Type Department Care Team ([facility] st Contact Info) Description 04/02/2024 Telephone [facility] 230 [place], [place] [phone] Sue Alicia MD 230 [place], [place] [phone] Referral Social History Tobacco Use Types Packs/Day [...] referral : DATE: n/a TIME: n/a Address: [address] [place] [address] Visits: all year long 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: [facility] staff respiratory therapist Type of Specialist: staff respiratory therapist Provider : Rhea Locke MD Address: [address] [place] [address] Fax #: [phone] documented in this encounter Plan of Treatment Upcoming Encounters Date Type Department Care Team (Late st Contact Info) Description 04/01/2025 10:30 AM EDT Clinical Support [facility] [address] [place] [address] Cookie Alcaraz RN 04/19/2025 11:15 AM EDT Office Visit [facility] [address] [place] [address] Sue Alicia MD [address] [place] [address] documented as of this encounter Visit Diagnoses Not on filedocumented in this encounter Additional Health Concerns Assessment Noted Time PHQ-9 Depression Total Score: 19 024 2:37 PM EDT documented as of this encounter Care Teams Shank Breaker Relationship Specialty Start Date End Date Sue Alicia MD 230 [place] [address] PCP - General Family Medicine 08/09/23 documented as of this encounter
--- OUTSIDE RECORDS SUMMARY | 2025-03-06 08:24 | XMS_ITS | Clinical Summary ---
Author Organization [facility] Address [address] [place] [address] Care Team Providers Care Materials Technician Name Role Phone Unavailable Primary Care Provider [...]
--- OUTSIDE RECORDS SUMMARY | 2025-03-06 08:24 | XMS_ITS | Encounter Summary ---
Author Organization [employer] Address [address] [facility] 7t [place] [address] Care Team Providers Care Administrative Support Associate Name Role Phone Sue Alicia MD Primary Care Provider [phone] Reason for Visit * Reason Onset Date Comments Med Refill 11/21/2023 Encounter Details Date Type Department Care Team ([facility] st Contact Info) Description 11/21/2023 Refill [facility] 230 [place], [place] [phone] Sue Alicia MD 230 [place], [place] [phone] Chronic low back pain, unspecified back pain [...] 10 MG tablet To be sent to: [facility] [place], [place] - [address] [place] [address] documented in this encounter Plan of Treatment Upcoming Encounters Date Type Department Care Team (Late st Contact Info) Description 04/01/2025 10:30 AM EDT Clinical Support [facility] [address] [place] [address] Cookie Alcaraz RN 04/19/2025 11:15 AM EDT Office Visit [facility] [address] [place] [address] Sue Alicia MD 230 [place] [address] documented as of this encounter Visit Diagnoses Diagnosis Chronic low back pain, unspecified back pain laterality, unspecified whether sciatica present Rash and nonspecific skin eruption Rash and other nonspecific skin eruption documented in this encounter Additional Health Concerns Assessment Noted Time PHQ-9 Depression Total Score: 0 02/26/20 23 9:24 AM EDT documented as of this encounter Care Teams Administrative Support Associate Relationship Specialty Start Date End Date Sue Alicia MD 230 [place] [address] PCP - General Family Medicine 08/09/23 documented as of this encounter
--- OUTSIDE RECORDS SUMMARY | 2025-03-06 08:24 | XMS_ITS | Encounter Summary ---
Author Organization [employer] Address [address] [facility] [address] 7t [place] [address] Care Team Providers Care Guest Relations Representative Name Role Phone Sue Alicia MD Primary Care Provider [phone] Reason for Visit * Reason Comments Med Refill Encounter Details Date Type Department Care Team ([facility] st Contact Info) Description 04/11/2024 Refill [facility] [address] [place], [place] [phone] Sue Alicia MD 230 [place] [address] Shortness of breath Social History Tobacco Use [...] 10:30 AM EDT Clinical Support [facility] [address] [place] [address] Cookie Alcaraz RN 04/19/2025 11:15 AM EDT Office Visit [facility] [address] [place] [address] Sue Alicia MD [address] [place] [address] documented as of this encounter Visit Diagnoses Diagnosis Shortness of breath documented in this encounter Additional Health Concerns Assessment Noted Time PHQ-9 Depression Total Score: 19 024 2:37 PM EDT documented as of this encounter Care Teams Guest Relations Representative Relationship Specialty Start Date End Date Sue Alicia MD [address] [place] [address] PCP - General Family Medicine 08/09/23 documented as of this encounter
--- OUTSIDE RECORDS SUMMARY | 2025-03-06 08:24 | XMS_ITS | Encounter Summary ---
Author Organization [employer] Address [address] [facility] 7t [place] [address] Care Team Providers Care Senior Research Scientist Name Role Phone Sue Alicia MD Primary Care Provider [phone] Reason for Visit * Reason Onset Date Comments Med Refill 08/29/2023 Encounter Details Date Type Department Care Team ([facility] Contact Info) Description 08/29/2023 Telephone [facility] 230 [place], [place] [phone] Sue Alicia MD 230 [place], [place] [phone] Med Refill Social History Tobacco Use Types [...] (Flexeril) 10 MG tablet Please sent to [facility] [place], [place] - [address] [place] [address] documented in this encounter Plan of Treatment Upcoming Encounters Date Type Department Care Team (Late st Contact Info) Description 04/01/2025 10:30 AM EDT Clinical Support [facility]INE [address] [place] [address] Cookie Alcaraz RN 04/19/2025 11:15 AM EDT Office Visit [facility] [address] [place] [address] Sue Alicia MD 230 [place] [address] documented as of this encounter Visit Diagnoses Not on filedocumented in this encounter Additional Health Concerns Assessment Noted Time PHQ-9 Depression Total Score: 0 02/26/20 23 9:24 AM EDT documented as of this encounter Care Teams Senior Research Scientist Relationship Specialty Start Date End Date Sue Alicia MD 230 [place] [address] PCP - General Family Medicine 08/09/23 documented as of this encounter
--- OUTSIDE RECORDS SUMMARY | 2025-03-06 08:24 | XMS_ITS | Encounter Summary ---
Author Organization [employer] Address [address] [facility] [address] 7t [place] [address] Care Team Providers Care Lamp Shades Supervisor Name Role Phone Sue Alicia MD Primary Care Provider [phone] Reason for Visit * Reason Onset Date Comments Call Back Request 02/20/2024 Encounter Details Date Type Department Care Team ([facility] Contact Info) Description 02/20/2024 Telephone [facility] 230 [place], [place] [phone] Sue Alicia MD 230 [place], [place] [phone] Call Back Request Social History Tobacco Use [...] Description 04/01/2025 10:30 AM EDT Clinical Support [facility] [address] [place] [address] Cookie Alcaraz RN 04/19/2025 11:15 AM EDT Office Visit [facility] [address] [place] [address] Sue Alicia MD [address] [place] [address] documented as of this encounter Visit Diagnoses Not on filedocumented in this encounter Additional Health Concerns Assessment Noted Time PHQ-9 Depression Total Score: 19 024 2:37 PM EDT documented as of this encounter Care Teams Lamp Shades Supervisor Relationship Specialty Start Date End Date Sue Alicia MD [address] [place] [address] PCP - General Family Medicine 08/09/23 documented as of this encounter
--- OUTSIDE RECORDS SUMMARY | 2025-03-06 08:24 | XMS_ITS | Encounter Summary ---
Author Organization [employer] Address [address] [facility] [address] 7t [place] [address] Care Team Providers Care Medical Staff Physician Name Role Phone Sue Alicia MD Primary Care Provider [phone] Reason for Visit * Reason Comments Med Refill Encounter Details Date Type Department Care Team ([facility] st Contact Info) Description 10/03/2024 Refill [facility] 230 [place], [place] [phone] Sue Alicia MD 230 [place], [place] [phone] Chronic low back pain, unspecified back pain [...] Description 04/01/2025 10:30 AM EDT Clinical Support [facility] [address] [place] [address] Cookie Alcaraz RN 04/19/2025 11:15 AM EDT Office Visit [facility] [address] [place] [address] Sue Alicia MD [address] [place] [address] documented as of this encounter Visit Diagnoses Diagnosis Chronic low back pain, unspecified back pain laterality, unspecified whether sciatica present documented in this encounter Additional Health Concerns Assessment Noted Time PHQ-9 Depression Total Score: 19 024 2:37 PM EDT documented as of this encounter Care Teams Medical Staff Physician Relationship Specialty Start Date End Date Sue Alicia MD [address] [place] [address] PCP - General Family Medicine 08/09/23 documented as of this encounter
--- OUTSIDE RECORDS SUMMARY | 2025-03-06 08:25 | XMS_ITS | Encounter Summary ---
Author Organization [employer] Address [address] [facility] 7t [place] [address] Care Team Providers Care Assistant Controller Name Role Phone Sue Alicia MD Primary Care Provider [phone] Reason for Visit * Reason Comments Med Refill Encounter Details Date Type Department Care Team ([facility] st Contact Info) Description 08/26/2023 Refill [facility] 230 [place], [place] [phone] Negrita Diaz FNP 230 [place] [address] Other chronic pain Social History Tobacco Use [...] with others, in a hotel, in a custodial, living outside on the street, on a [...] Description 04/01/2025 10:30 AM EDT Clinical Support [address] [address] Cookie Alcaraz RN 04/19/2025 11:15 AM EDT Office Visit [address] [address] Sue Alicia MD [address] [place] [address] documented as of this encounter Visit Diagnoses Diagnosis Other chronic pain documented in this encounter Additional Health Concerns Assessment Noted Time PHQ-9 Depression Total Score: 0 02/26/20 23 9:24 AM EDT documented as of this encounter Care Teams Assistant Controller Relationship Specialty Start Date End Date Sue Alicia MD [address] [place] [address] PCP - General Family Medicine 08/09/23 documented as of this encounter
--- OUTSIDE RECORDS SUMMARY | 2025-03-06 08:25 | XMS_ITS | Encounter Summary ---
Author Organization [employer] Address [address] [facility] 7t [place] [address] Care Team Providers Care Naval Special Warfare Medic Name Role Phone Miranda Ramirez Primary Care Provider [phone] Sue Alicia MD Primary Care Provider [phone] Reason for Visit * Reason Comments Med Refill Encounter Details Date Type Department Care Team ([facility] Contact Info) Description 07/26/2023 Refill [facility] [address] [place] [address] Miranda Ramirez FNP [address] [place] [address] Dept [place] [address] Shortness of breath Social History Tobacco Use [...] Upcoming Encounters Date Type Department Care Team ([facility] Contact Info) Description 04/01/2025 10:30 AM EDT Clinical Support [facility] [address] [place] [address] Cookie Alcaraz RN 04/19/2025 11:15 AM EDT Office Visit [facility] 230 [place] [address] Sue Alicia MD 230 [place] [address] documented as of this encounter Visit Diagnoses Diagnosis Shortness of breath documented in this encounter Additional Health Concerns Assessment Noted Time PHQ-9 Depression Total Score: 0 02/26/20 9:24 AM EDT documented as of this encounter Care Teams Naval Special Warfare Medic Relationship Specialty Start Date End Date Miranda Ramirez FNP PCP - General Family Medicine 12/01/22 08/08/23 Sue Alicia MD [address] [place] [address] PCP - General Family Medicine 08/09/23 documented as of this encounter
--- OUTSIDE RECORDS SUMMARY | 2025-03-06 08:25 | XMS_ITS | Encounter Summary ---
Author Organization [employer] Address [address] [place] [address] 7t [place] [address] Care Team Providers Care Radiographer Name Role Phone Miranda Ramirez Primary Care Provider [phone] Sue Alicia MD Primary Care Provider [phone] Reason for Visit * Reason Comments Med Refill Encounter Details Date Type Department Care Team ([facility] Contact Info) Description 07/21/2023 Refill [facility] [address] [place] [address] Miranda Ramirez FNP [address] [place] [address] Dept [place] [address] Hypothyroidism, unspecified type Social History Tobacco Use [...] Upcoming Encounters Date Type Department Care Team ([facility] Contact Info) Description 04/01/2025 10:30 AM EDT Clinical Support [facility] [address] [place] [address] Cookie Alcaraz RN 04/19/2025 11:15 AM EDT Office Visit [facility] 230 [place] [address] Sue Alicia MD 230 [place] [address] documented as of this encounter Visit Diagnoses Diagnosis Hypothyroidism, unspecified type documented in this encounter Additional Health Concerns Assessment Noted Time PHQ-9 Depression Total Score: 0 02/26/20 9:24 AM EDT documented as of this encounter Care Teams Radiographer Relationship Specialty Start Date End Date Miranda Ramirez FNP PCP - General Family Medicine 12/01/22 08/08/23 Sue Alicia MD [address] [place] [address] PCP - General Family Medicine 08/09/23 documented as of this encounter
--- OUTSIDE RECORDS SUMMARY | 2025-03-06 08:25 | XMS_ITS | Encounter Summary ---
Author Organization [employer] Address [address] [facility] 7t [place] [address] Care Team Providers Care Supervisor Photocomposition Name Role Phone Miranda Ramirez Primary Care Provider [phone] Sue Alicia MD Primary Care Provider [phone] Reason for Visit * Reason Comments Med Refill Encounter Details Date Type Department Care Team ([facility] Contact Info) Description 07/25/2023 Refill [facility] MEDICINE [address] [place] [phone] Miranda Ramirez FNP [address] [place] [address] Dept [place] [address] Shortness of breath Social History Tobacco Use [...] Upcoming Encounters Date Type Department Care Team ([facility] Contact Info) Description 04/01/2025 10:30 AM EDT Clinical Support [facility] MEDICINE [address] [place] [phone] Cookie Alcaraz RN 04/19/2025 11:15 AM EDT Office Visit [facility]INE [address] [place] [address] Sue Alicia MD [address] [place] [address] documented as of this encounter Visit Diagnoses Diagnosis Shortness of breath documented in this encounter Additional Health Concerns Assessment Noted Time PHQ-9 Depression Total Score: 0 02/26/20 9:24 AM EDT documented as of this encounter Care Teams Supervisor Photocomposition Relationship Specialty Start Date End Date Miranda Ramirez FNP PCP - General Family Medicine 12/01/22 08/08/23 Sue Alicia MD [address] [place] [phone] PCP - General Family Medicine 08/09/23 documented as of this encounter
--- OUTSIDE RECORDS SUMMARY | 2025-03-06 08:25 | XMS_ITS | Encounter Summary ---
Author Organization [employer] Address [address] [facility] [address] 7t [place] [address] Care Team Providers Care Senior Structural Engineer Name Role Phone Sue Alicia MD Primary Care Provider Reason for Visit * Reason Comments Med Refill Encounter Details Date Type Department Care Team ([facility] st Contact Info) Description 08/28/2024 Refill [facility] & [facility]S [address] [place], [place] [phone] Sue Alicia MD [address] [place] [address] Chronic low back pain, unspecified back pain [...] EDT Clinical Support [facility] [address] [place] [phone] Cookie Alcaraz RN 04/19/2025 11:15 AM EDT Office Visit [facility] [address] [place] [address] Sue Alicia MD [address] [place] [address] documented as of this encounter Visit Diagnoses Diagnosis Chronic low back pain, unspecified back pain laterality, unspecified whether sciatica present documented in this encounter Additional Health Concerns Assessment Noted Time PHQ-9 Depression Total Score: 19 024 2:37 PM EDT documented as of this encounter Care Teams Senior Structural Engineer Relationship Specialty Start Date End Date Sue Alicia MD [address] [place] [phone] PCP - General Family Medicine 08/09/23 documented as of this encounter
--- OUTSIDE RECORDS SUMMARY | 2025-03-06 08:25 | XMS_ITS | Encounter Summary ---
Author Organization [employer] Address [address] [facility] [address] 7t [place] [address] Care Team Providers Care Warm In Worker Name Role Phone Sue Alicia MD Primary Care Provider [phone] Reason for Visit * Reason Comments Med Refill Encounter Details Date Type Department Care Team ([facility] st Contact Info) Description 10/03/2024 Refill [facility] MEDICINE 230 [place], [place] [phone] Sue Alicia MD 230 [place], [place] [phone] Bronchitis Social History Tobacco Use Types Packs/Day [...] Description 04/01/2025 10:30 AM EDT Clinical Support [facility] [address] [place] [address] Cookie Alcaraz RN 04/19/2025 11:15 AM EDT Office Visit [facility] [address] [place] [phone] Sue Alicia MD [address] [place] [address] documented as of this encounter Visit Diagnoses Diagnosis Bronchitis Bronchitis, not specified as acute or chronic documented in this encounter Additional Health Concerns Assessment Noted Time PHQ-9 Depression Total Score: 19 024 2:37 PM EDT documented as of this encounter Care Teams Warm In Worker Relationship Specialty Start Date End Date Sue Alicia MD [address] [place] [phone] PCP - General Family Medicine 08/09/23 documented as of this encounter
--- OUTSIDE RECORDS SUMMARY | 2025-03-06 08:25 | XMS_ITS | Encounter Summary ---
Author Organization [employer] Address [address] [facility] [address] 7t [place] [address] Care Team Providers Care Quality Control Representative Name Role Phone Sue Alicia MD Primary Care Provider [phone] Encounter Details Date Type Department Care Team ([facility] st Contact Info) Description 09/17/2024 Orders Only [facility] MEDICINE 230 [place], [place] [phone] Sue Alicia MD 230 [place], [place] [phone] Bronchitis (Primary Dx) Social History Tobacco Use [...] Description 04/01/2025 10:30 AM EDT Clinical Support [facility] MEDICINE [address] [place] [address] Cookie Alcaraz RN 04/19/2025 11:15 AM EDT Office Visit [facility] MEDICINE [address] [place] [address] Sue Alicia MD [address] [place] [address] documented as of this encounter Visit Diagnoses Diagnosis Bronchitis- Primary Bronchitis, not specified as acute or chronic documented in this encounter Additional Health Concerns Assessment Noted Time PHQ-9 Depression Total Score: 19 024 2:37 PM EDT documented as of this encounter Care Teams Quality Control Representative Relationship Specialty Start Date End Date Sue Alicia MD [address] [place] [phone] PCP - General Family Medicine 08/09/23 documented as of this encounter
--- OUTSIDE RECORDS SUMMARY | 2025-03-06 08:25 | XMS_ITS | Clinical Summary ---
Author Organization [employer] Address [address] [facility] 7t [place] [address] Care Team Providers Care Machinist First Class Name Role Phone Sue Alicia MD Primary Care Provider [phone] Allergies Active Allergy Reactions Criticality Noted Date [...] MM misc USE 1 DAILY WITH VICTOZA 024 Active clotrimazole (Lotrimin) 1 % cream Apply [...] MOUTH EVERY MORNING 90 capsule 1 Active glucose blood (FREESTYLE LITE) test stripIndications :Elevated blood sugar TEST BLOOD SUGAR ONCE DAILY DIRECTED 100 strip 11 Active Alcohol Swabs (Alcohol Prep) 70 % [...] ML SUBCUTANEOUSLY EVERY 2 WEEKS DIRECTED Active predniSONE (Deltasone) 5 MG tabletIndication s:Rash and nonspecific skin eruption TAKE 1 TABLET BY MOUTH EVERY MORNING 30 tablet 3 025 Active cyclobenzaprine (Flexeril) 5 MG tabletIndication [...] INJECTION SITES. 3 mL 1 025 Active predniSONE (Deltasone) 5 MG tabletIndication s:Rash and nonspecific skin eruption Take 1 tablet (5 mg) by mouth in the morning. 30 tablet 3 024 2024 Discontinued Ozempic, 0.25 or 0.5 MG/DOSE, 2 MG/3ML [...] eorder (will not trigger notification to Pharmacy)) oxyCODONE-acetam inophen (Percocet) 5-325 MG tabletIndication s:Other [...] Active Problems Problem Noted Date Diagnosed Date correction current use of opiate analgesic 2024 Overview (11/06/2024): Dx: Rx: Last RECYCLING PROGRAM MANAGER agreement: Tier II (visit every 3 months) [...] calcification, right 05/03/2023 History of primary hyperparathyroidism correction systemic steroid user 05/03/2023 Osteopenia 05/03/2023 Overview [...] disease, without long-term current use of insulin ([facility]) 02/25/2023 Assessment & Plan (06/08/2024 11:55 AM EDT): A1C 5.9 Current regimen: Metformin 1000mg BID; Ozempic 0.5mg Microalbumin: due Lipid panel: ordered Foot exam: 06/04/24 Eye: 02/11/23 [facility]; No diabetic retinopathy or macular degeneration Statin: Atorvastatin 20mg MELLISSA/ARB: Irbesartan 75mg Assessment & Plan (02/08/2024 8:59 PM EDT): A1C 6.7 Current regimen: Metformin 1000mg BID; Victoza injection Microalbumin: due Lipid panel: today Foot exam: Perform next visit Eye: 02/11/23 [facility]; No diabetic retinopathy or [...] Encounters Date Type Department Care Team Description 03/04/2025 Refill [facility] [address] [place] [address] Sue Alicia MD Type 2 diabetes mellitus with diabetic chronic kidney disease ([facility]) 02/20/2025 Refill [facility] MED & PEDS [address] [place] [address] Sue Alicia MD Chronic low back pain, unspecified back pain laterality, unspecified whether sciatica present; Other chronic pain 02/17/2025 Refill [facility]S [address] [place] [address] Sue Alicia MD Rash and nonspecific skin eruption 02/08/2025 Refill [facility]S [address] [place] [address] Sue Alicia MD Chronic low back pain, unspecified back pain laterality, unspecified whether sciatica present 01/24/2025 Telephone [facility] [address] [place] [address] Sue Alicia MD 01/22/2025 Refill [facility] [address] [place] [address] Sue Alicia MD Other chronic pain 01/16/2025 Refill [facility]S [address] [place] [address] Sue Alicia MD Chronic low back pain, unspecified back pain laterality, unspecified whether sciatica present 01/15/2025 Telephone [facility] [address] [place] [address] Sue Alicia MD Appointment Request 01/14/2025 Orders Only GENERIC EXTERNAL DATA DEPARTMENT Provider, Generic External Data 01/08/2025 Telephone [facility] [address] [place] [address] Sue Alicia MD Appointment Request 01/01/2025 Refill [facility] [address] [place] [address] Sue Alicia MD Type 2 diabetes mellitus with diabetic chronic kidney disease ([facility]) 12/31/2024 Telephone [facility] [address] [place] [address] [place] 12/31/2024 Telephone [facility] [address] [place] [address] Sue Alicia MD Prior Authorization (Cyclobenzaprine 5mg) 12/26/2024 Refill [facility] [address] [place], [place] [phone] Sue Alicia MD Chronic low back pain, unspecified back pain laterality, unspecified whether sciatica present; Other chronic pain 12/19/2024 10:15 AM EST Office Visit [facility] [address] [place] [address] Presbyopia (Primary Dx) 12/19/2024 Travel 12/11/2024 Refill [facility] [address] [place] [address] Sue Alicia MD Chronic low back pain, [...] Description 04/01/2025 10:30 AM EDT Clinical Support [facility] [address] [place] [address] Cookie Alcaraz RN 04/19/2025 11:15 AM EDT Office Visit [facility] [address] [place] [address] Sue Alicia MD [address] [place] [address] Health Maintenance Due Date Last Done Comments [...] 08/20/2019, Additional history exists Diabetes: Hemoglobin A1C 12/05/2024 024, 02/08/2024, 10/26/2023, Additional history exists Depression Screening 02/07/2025 02/08/2024, [...] LEVEL 3 Routine 01/14/2025 10:30 AM EDT BI MAMMOGRAM SCREENING TOMOSYNTHESIS BILATERAL Routine 08/08/2024 [...] 02/29/2024 9:12 AM EDT Cervical cancer screening [facility] HISTORICAL LIPID PANEL Routine 06/10/2022 10:29 AM EDT [facility] HISTORICAL HEPATITIS A,B,C PROFILE Routine 12/26/2019 12:05 PM EST from Last 3 Months or Most Recently Relevant to Health Maintenance Results * Gross and Microscopic Level 3 (01/14/2025 10:30 AM EDT) 01/14/2025 10:3 0 AM EDT 01/15/2025 8:10 AM EDT [facility] - 01/17/2025 10:39 AM EDT ----- ------- Name: Nicky Lopez ?Age/Sex: 64/F ? : 1960 Unit#: [id number] ?? Attend Dr: Agustín Real MD ?Re01/14/25 ?Status: DEP REF ? Location: .LAB ?Disch: ? ----- ------- SPEC : [id number] ? RECD: 01/15/25 ? STATUS: ??SOUT ? REQ NUM: [id number] ? [place]: 01/14/25-1030 ? SUBM DR: Agustín Real MD ? ENTERED: ??01/15/25 ?SP TYPE: Surgical ? OTHR DR: Miranda Ramirez FRAME EXPANDER ? ORDERED: ??Gross Micro L3 ? Diagnosis [...] Copies To: ?? Agustín Real MD ?? [facility] ?? [address] ?? [place] [address] ?? [phone] ? CONTINUED ON NEXT PAGE ----- ------- Name: Nicky Lopez ?Age/Sex: 64/F ? : 1960 Unit#: [id number] ?? Attend Dr: Agustín Real MD ?Re01/14/25 ?Status: DEP REF ? Location: .LAB ?Disch: ? ----- ------- SPEC : [id number] ? RECD: 01/15/25 ? STATUS: ??SOUT ? REQ NUM: [id number] ? [place]: 01/14/25-0 ? SUBM DR: Agustín Real MD ? ENTERED: ??01/15/25 ?SP TYPE: Surgical ? OTHR DR: Miranda Ramirez FRAME EXPANDER ? ORDERED: ??Gross Micro L3 ? Copies To: ??(Continued) ?? Miranda Ramirez FRAME EXPANDER ?? [address] [facility] ?? [place] [address] ?? [phone] ----- ------- Signed (signature on file) Humphrey Cedeño MD 01/17/25 1039 ? ----- ------- ? END OF REPORT ? us Generic External Data Provider LAB CYTOLOGY NANCY MURCIA Final Result [facility] [address] [facility] [place] [phone] * BI Mammogram Screening Tomosynthesis Bilateral (08/08/2024 11:20 AM EDT) Anatomical Region Laterality Modality Breast Bilateral Mammography 08/08/2024 11:2 0 AM EDT Narrative 08/20/2024 6:01 PM EDT ? [facility] ? [address] ?[place] [address] ? Mammography Report ? Signed ? Patient: Lopez,Nicky ?MR#: [id number] ?? 3 ? : 1960 ?Acct:[id number] ? Age/Sex: 63 / F ?ADM Date: 08/08/24 ? Loc: HO.MAMMO ? Attending Dr: Isael Hollis MD ? Ordering Physician: LATRICE FORBES CNM ?Results: 2 ?? Benign Findings ? Date of Service: 08/08/24 ?Follow Up: 1 Year From Orig ?? inal Mammogram ? Procedure(s): MM tomosynthesis screening BI ?? Accession Number(s): [id number] ? cc: Sue Alicia; LATRICE FORBES CNM [...] DD/ 1120 ? TD/TT: 08/08/24 1140 ? Mold Breaker: ? Procedure Note Donjaquelineter, Image - 08/20/2024 Dilip [facility] [address] [place] [id number] Mammography Report Signed Patient: Aleshia Lopez#: [id number] 3 : 9Acct:[id number] Age/Sex: 63 / FADM Date: 08/08/24 Loc: HO.MAMMO Attending Dr: Isael Hollis MD Ordering Physician: LATRICE FORBESesults: 2 Benign Findings Date of Service: 08/08/24Follow Up: 1 Year From Orig ina Mammogram Procedure(s): MM tomosynthesis screening BI Accession Number(s): [id number] cc: Sue Alicia; LATRICE FORBES CNM EXAMINATION: [...] 08/20/24 1758 DD/ 1120 TD/TT: 08/08/24 1140 Mold Breaker: Latrice Forbes CNM IMG BI PROCEDURES Edited Result - Final * POCT glycosylated hemoglobin (Hgb A1c) (06/04/2024 3:34 PM EDT) Hemoglobin A1C 5.9 4.0 - 6.0 % QC Media Lot # [id number] Lot# Expiration Date [id number] Blood Capillary blood specimen / Unknown 06/04/2024 3:34 PM EDT Sue Alicia MD POINT OF CARE TEST ENTER/EDIT ORDERABLES Final Result * HPV mRNA E6/E7 w/Reflex to HPV Genotypes 16, 18/45 (02/29/2024 9:12 AM EDT) HPV nRNA E6/E7 Not Detected Not Detected [facility] Comment:Methodology: Transcr iption-Mediated AmplificationThis assay detects E6/E7 viral messenger RNA (mRNA) from 14high-risk HPV types (16,18,31,33,35,39,45,51,52,56,58,59,66,68).Cervical sources are required for HPV testing.If a vaginal source from a patient who has had atotal hysterectomy with removal of cervix wassubmitted, please contact the testing laboratoryfor alternative testing options.For additional information, please refer tohttp://education.[employer]/faq/VRR240u4(This link if provided for information/educational purposes only.)THIS TEST WAS PERFORMED AT:[facility] [place] [id number] RODRIGES MD HPV mRNA E6/E7 TNP [facility] HPV 16 RNA TNP [facility] HPV 18/45 RNA TNP [facility] 02/29/2024 9:12 AM EDT 03/05/2024 8:00 AM EDT us Latrice Forbes CNM LAB CYTOLOGY ORDERABLES F inal Result [facility] [address] [place] [address] [phone] * Pap Smear (02/29/2024 9:12 AM EDT) Swab Cervix uteri structure / Unknown 02/29/2024 9:12 AM EDT 03/05/2024 8:00 AM EDT Narrative [facility] - 03/27/2024 3:52 PM EDT ----- ------- Name: Nicky Lopez ?Age/Sex: 63/F ? : 1960 Unit#: [id number] ?? Attend Dr: LATRICE FORBES CNM ?Re02/29/24 ?Status: DEP REF ? [facility] ? Disch: ? ----- ------- SPEC : [id number] ? RECD: 03/05/24 ? STATUS: ??SOUT ? REQ NUM: [id number] ? [place]: 02/29/24 ? SUBM DR: LATRICE [...] 66, 68) ?? HPV testing performed by [employer], [place], [place]. ??See reference laboratory ?? portion of the EMR for entire report. ?Clinical Information LMP: Postmenopausal Previous PAP test: 01/2019, NIL/HPV- ? Material Received ?? ThinPrep-Cervical ----- ------- Signed (signature on file) MAC Toro (ASCP) 03/27/24 1552 ? ----- ------- ? END OF REPORT ? us Latrice Forbes [facility] CYTOLOGY ORDERABLES F inal Result [facility] [address] [place] [phone] * (ABNORMAL) LIPID PANEL (06/10/2022 10:29 AM [...] liver disease. LDL Cholesterol Calculated 92 mg/dl [facility] Comment: Desirable LDL: ? less [...] Alanine Aminotransferase 11 0 - 31 U/L [facility] Albumin Level 3.8 3.5 - 5.0 g/dL [facility] Alkaline Phosphatase 49 39 - 117 U/L [facility] Anion Gap 17 12 - 20 [facility] Aspartate Amino Transferase 15 5 - 31 U/L [facility] Bilirubin Total 0.2 0.0 - 1.0 mg/dL [facility] Blood Urea Nitrogen 18(H) 9 - 16 mg/dL [facility] Calcium 8.2(L) 8.4 - 10.2 mg/dL [facility] Carbon Dioxide 25 22 - 29 mmol/L [facility] Chloride 104 96 - 108 mmol/L [facility] Creatinine, Serum 0.81 0.5 - 1.4 mg/dL [facility] Estimated Glomerular Filt Rate >60 [facility] Comment: NOTE: ??For -[place] individuals, multiply the result ?by 210. ?? [...] ORDERABLE LABS Final Result Performing Organization Address [facility] Co de Phone Number [facility] [address] * HEPATITIS A,B,C PROFILE (12/26/2019 12:05 [...] ORDERABLE LABS Final Result Performing Organization Address [facility] Co de Phone Number [facility] [address] from Last 3 Months or Most Recently Relevant to Health Maintenance Insurance [facility] * Guarantor: Lopez Nicky Account Type Relation to Patient Date of Phone Billing Address Personal/Family Self [address] Care Teams Machinist First Class Relationship Specialty Start Date End Date Sue Alicia MD [address] [place] [address] PCP - General Family Medicine 08/09/23
--- OUTSIDE RECORDS SUMMARY | 2025-03-06 08:25 | XMS_ITS | Encounter Summary ---
Author Organization [employer] Address [address] [facility] 7t [place] [address] Care Team Providers Care Underwriter Mortgage Loan Name Role Phone Miranda Ramirez Primary Care Provider [phone] Sue Alicia MD Primary Care Provider [phone] Reason for Visit * Reason Comments Med Refill Encounter Details Date Type Department Care Team ([facility] st Contact Info) Description 08/01/2023 Refill [facility] [address] [place] [address] Miranda Ramirez FNP [address] [place] [address] [place] [address] Social History Tobacco Use Types Packs/Day Years [...] Description 04/01/2025 10:30 AM EDT Clinical Support [address] [address] Cookie Alcaraz RN 04/19/2025 11:15 AM EDT Office Visit [address] [address] Sue Alicia MD [address] [place] [address] documented as of this encounter Visit Diagnoses Not on filedocumented in this encounter Additional Health Concerns Assessment Noted Time PHQ-9 Depression Total Score: 0 02/26/20 23 9:24 AM EDT documented as of this encounter Care Teams Underwriter Mortgage Loan Relationship Specialty Start Date End Date Miranda Ramirez FNP PCP - General Family Medicine 12/01/22 08/08/23 Sue Alicia MD [address] [place] [address] PCP - General Family Medicine 08/09/23 documented as of this encounter
[2025-03-06 08:28] VITALS: BP 100/62; PULSE 52; O2SAT 98; BMI 25.6
== END 2025-03-06 08:55 | disposition home or self-care (01) ==
LOC: HO.RHE 08:18
PROVIDERS: Visit Provider Student in an Organized Health Care Education/Training Program
DX: M35.89 Other specified systemic involvement of connective tissue (principal); M79.7 Fibromyalgia; M1A.00X0 Idiopathic chronic gout, unspecified site, without tophus (tophi); M85.89 Other specified disorders of bone density and structure, multiple sites; Z79.899 Other long term (current) drug therapy; Z79.52 Long term (current) use of systemic steroids
CPT/HCPCS: 99215; G2211

== ENCOUNTER → 2025-03-06 08:17 | Outpatient (BNVA) | payer MEDICARE, MEDICAID, SELFPAY | PROVIDERS: Visit Provider Student in an Organized Health Care Education/Training Program | DX: M06.00 Rheumatoid arthritis without rheumatoid factor, unspecified site (principal); M35.9 Systemic involvement of connective tissue, unspecified; M79.7 Fibromyalgia; M1A.00X0 Idiopathic chronic gout, unspecified site, without tophus (tophi); M85.89 Other specified disorders of bone density and structure, multiple sites; E55.9 Vitamin D deficiency, unspecified; Z79.52 Long term (current) use of systemic steroids; Z79.899 Other long term (current) drug therapy | CPT/HCPCS: 99212 ==

== ENCOUNTER 2025-04-03 09:09 | Outpatient (AMB) | payer MEDICARE, MEDICAID, SELFPAY ==
[2025-04-03 09:27] VITALS: BP 112/64; PULSE 72; O2SAT 100; BMI 25.4
--- NOTE | 2025-04-03 09:27 | MHC.OFFVIS ---
Vital Signs 04/03/25 09:27 Height 5 ft 2 in Weight 139 lb BMI 25.4 BP 112/64 Blood Pressure Location Lt brachial Position Sitting Pulse 72 Pulse Source Pulse Oximeter Pulse Oximetry (%) 100 Oxygen Delivery Method Room Air Intake Visit Reasons: Sleep apnea Intake Note: pt is here and states she is regular Medical Receptionist Assistant Required: Yes Medical Receptionist Assistant Services: Medical Receptionist Assistant Present Medical Receptionist Assistant Name: `[id number] Allergies aspirin [ASA] Allergy (Intermediate, Verified 04/03/25 09:37) ITCHY, HOT, AND HEADACHE calcium Allergy (Intermediate, Verified 04/03/25 09:37) Vomiting Penicillins Allergy (Intermediate, Verified 04/03/25 09:37) RASH tofacitinib [Xeljanz] Allergy (Intermediate, Verified 04/03/25 09:37) chest pain, headaches sulfasalazine Allergy (Unknown, Verified 04/03/25 09:37) unknown Medication List - Last Reconciled 04/03/25 by Radha Whitfield MD albuterol sulfate 90 mcg/actuation (ProAir HFA) 2 puffs PO Q6H PRN albuterol sulfate 1.25 mg (3 mL) inhalation Q4-6H PRN 30 days alcohol swabs (Alcohol Prep Pads) USE DIRECTED SIX TIMES DAILY allopurinol 200 mg (2 x 100 mg) PO QPM 90 days aripiprazole (Abilify) 10 mg PO .every 2 days artifi.tears(hypromellose)(PF) 0.3% 1 drp ophthalmic (eye) Q4-6H PRN atorvastatin 20 mg PO DAILY blood sugar diagnostic (FreeStyle Lite Strips) As directed blood-glucose meter (FreeStyle [place] Lite kit) As directed cane As directed cholecalciferol (vitamin D3) 1,250 mcg PO QWEEK 90 days cyclobenzaprine 5 mg PO BEDTIME docusate sodium (Colace) 100 mg PO BID furosemide 40 mg PO .every 2 days gabapentin 900 mg (3 x 300 mg) PO BEDTIME 30 days hydrocodone-acetaminophen 5-325 mg 1 tab PO Q6H PRN hydroxychloroquine (Plaquenil) 200 mg PO BID irbesartan 75 mg PO DAILY levothyroxine 75 mcg PO DAILY melatonin 10 mg PO BEDTIME PRN metformin ER 1,000 mg (2 x 500 mg) PO BID metoprolol tartrate 25 mg PO BID naloxone 4 mg/actuation (Narcan) 1 spray intranasal Q2M omeprazole magnesium (Prilosec OTC) 20 mg PO DAILY pen needle, diabetic (P[place]ips Pen Needle) USE 1 DAILY WITH VICTOZA polyethylene glycol 3350 (Miralax) 17 grams PO DAILY prednisone 5 mg PO DAILY 90 days psyllium husk (Metamucil) 1 tbsp PO BID semaglutide (Ozempic) 1 mg (0.75 mL) subcut QWEEK sennosides (senna) 8.6 mg PO DAILY zolpidem (Ambien) 5 mg PO BEDTIME PRN Do you need a note to return to daycare/school/sports/work: No HPI HPI Sleep apnea: Details: 64 years old Yi-speaking female is here for her routine follow-up. Breathing status has remained very stable and she uses albuterol in the nebulizer or albuterol HFA only as needed. She has had no acute flare ups of her asthma. Denies smoking. Obstructive sleep apnea she uses her CPAP regularly every night, and sleeps well. Her CPAP machine which is an old model does not transmit information for compliance, but she states that she is a regular user of CPAP. [facility] Medical History Undifferentiated connective tissue disease Lipoma On allopurinol therapy Gout Breast calcification, right Positive PHYLLIS (antinuclear antibody) Fibromyalgia History of primary hyperparathyroidism Osteopenia Dyslipidemia Hypothyroidism LONA on CPAP Bronchial asthma Epidermal inclusion cyst Morbid obesity Gout of right foot PHYLLIS positive Seronegative rheumatoid arthritis Diabetes type 2, uncontrolled Surgical History History of surgery Hx of excision of mass History of kidney surgery S/P breast lumpectomy H/O parathyroidectomy Hx of cholecystectomy H/O tubal ligation Family History Daughter History of breast cancer Father Cirrhosis Diabetes Arthritis Mother Arthritis Sister Diabetes Social History Alcohol intake: never Patient Tobacco Use Status: Former Tobacco user Tobacco use type: Cigarette Substance Use Type: Marijuana Female Reproductive History Menstrual Age of Menarche: 11 Review of Systems Const All systems reviewed & are unremarkable except as noted in HPI and below Eyes Reports no additional complaints ENT Reports nasal congestion (Mild off and on) Card Denies chest pain, Denies irregular heart rhythm and Denies leg edema Resp Reports as per HPI GI Reports no additional complaints Reports no additional complaints Musc Reports back pain, Reports arthralgias and Reports other (Being treated for rheumatoid arthritis) Skin/Breast Reports system reviewed and no additional complaints, except as documented Neuro Reports no additional complaints Psych Reports anxiety Endo Reports no additional complaints Gamal/Lymph Reports no additional complaints Physical Exam Const General: comfortable, no acute distress, alert and awake Orientation/consciousness: patient oriented x3 HEENT Head: Yes normal to inspection General nose exam: No nasal polyps present and No nasal discharge present Face and sinus: Yes sinuses nontender Mouth: oropharynx normal Throat: Yes posterior oropharynx normal Eyes General: appearance normal, both eyes and all related structures Neck Neck: Yes normal visual inspection, Yes no lymphadenopathy, Yes trachea midline and Yes no JVD Thyroid: Thyroid normal Chest Chest palpation & inspection: normal inspection of the chest, normal palpation of entire chest wall and no tenderness Resp Other: Percussion note resonant, breath sounds are equal on both sides. No wheezes rhonchi or crepitations are heard. Cardio Palpation: normal PMI Rate: regular rate Rhythm: regular rhythm Heart sounds: no gallops and no murmurs Peripheral pulses: Peripheral pulses 2+ throughout GI Palpation (GI): Soft to palpation, nontender, No hepatosplenomegaly present and no masses Auscultation: normal bowel sounds Back/Spine/Pelvis Thoracic/Lumbar Spine: thoracic and lumbar spine normal to inspection Skin General skin exam: no rashes or lesions noted Neuro General: patient oriented x3 and no focal motor deficits Cranial nerves: Yes CN's II-XII intact bilaterally Extrem General: Yes normal to inspection, Yes no clubbing, cyanosis or edema and Yes no calf tenderness Psych Appearance: grossly normal and well kempt Speech and movement: Normal speech and movement present Assessment & Plan Assessment & Plan (1) Bronchial asthma: Comment: SHE HAS CHRONIC, INTERMITTENT BRONCHIAL ASTHMA. SHE HAS HAD NO ACUTE RESPIRATORY SYMPTOMS. SHE IS ON PREDNISONE 5 MG A DAY, THIS IS FOR TREATMENT OF SERONEGATIVE LUPUS SYNDROME. SO SHE DOES NOT NEED TO USE ANY INHALED STEROIDS. Code(s): J45.909 - Unspecified asthma, uncomplicated Category: Medical Plan: ADVISED TO USE ALBUTEROL HFA OR ALBUTEROL SOLUTION IN THE NEBULIZER Q 6 HOURS ONLY P.R.N. (2) LONA on CPAP: Comment: PATIENT BEING TREATED FOR OBSTRUCTIVE SLEEP APNEA FOR THE PAST MANY YEARS. The CPAP device is old and has failed to transmit any data. So we do not have electronic , record of her compliance. The patient tells that she is using every night regularly and sleeping for 4-6 hours at a time. Code(s): G47.33 - Obstructive sleep apnea (adult) (pediatric); Z99.89 - Dependence on other enabling machines and devices Category: Medical Plan: ADVISE THAT SHE SHOULD CONTINUE TO USE THE CPAP EVERY NIGHT, AND AT LEAST FOR 4-5 HOURS PER NIGHT. Coding Level of Care Code Est Pt Level 3 (77015) Diagnoses Bronchial asthma J45.909 LONA on CPAP G47.33; Z99.89
--- OUTSIDE RECORDS SUMMARY | 2025-04-03 09:34 | XMS_ITS | Encounter Summary ---
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 [address] [place], [place] [id number] Cookie Alcaraz RN intermediate current use of opiate analgesic (Primary Dx) Social History Tobacco Use Types [...] as of this encounter Progress Notes * Cookie Alcaraz RN - 04/01/2025 10:30 AM EDT S: Pt here for ELECTRONIC CALIBRATION TECHNICIAN Revisit, translation provided by staff member Leslie Brody Prescribed Percocet 5mg Q6hr PRN. States she has been taking 2-3 doses per day. Her last dose taken was this morning. Continues to deny smoking cigarettes, ETOH use and illicit drug use. She smokes marijuana daily to help with her pain. She only uses marijuana from a dispensary. Denies having a medical marijuana card. C urrently rates her pain a 10 and states medication is 40% effective at alleviating her pain. Current pain sites are her lower and upper back and both of her legs. States she saw vascular a few days ago and had surgery on her veins in her left leg and will have her right leg done soon as well. O: ELECTRONIC CALIBRATION TECHNICIAN Tier 2. Pt currently prescribed Percocet 5mg Q6hr PRN. PERIODONTAL ASSISTANT verified today. Rx last filled on03/22/25. Pill count performed. Pt has 98 pills at this time, 71 at least expected. Medication is not overused by patient. UTOX completed. Positive for OXY, TCA & THC, Negative for AMP, BAR, BUP, BZO, SHIRA, FTY, MDMA, MET, MOP, MTD, PCP. UTOX as expected. BPI updated today. Pain severity score of10, activity interference score of 10. Previous BPI completed 11/21/24 with pain severity score of 8, activity interference score of 2.6. Will update PCP with BPI scoring. Last PCP visit was 11/02/24, scheduled next 04/19/25. A: ELECTRONIC CALIBRATION TECHNICIAN Revisit: Chronic Opioid use related to pain. P: Pt to continue taking medication only as prescribed; Next ELECTRONIC CALIBRATION TECHNICIAN RV appointment scheduled for 07/03/25 @ 10am F/U sooner PRN. Appointment reminder provided. Pt verbalized understanding and agreed to plan. documented in this encounter Plan of Treatment Upcoming Encounters Date Type Department Care Team (Late st Contact Info) Description 04/19/2025 11:15 AM EDT Office Visit [address] [address] Sue Alicia MD [address] [place] [id number] 07/03/2025 10:00 AM EDT Clinical Support [address] [address] Cookie Alcaraz, RN documented as of this encounter Procedures Procedure Name Priority Date/Time Associated Diagnosis Comments POCT EDMOND-14 URINE DRUG SCREEN Routine 04/01/2025 10:43 AM EDT intermediate current use of opiate analgesic documented in this encounter Results * POCT EDMOND-14 Urine Drug Screen (04/01/2025 10:43 AM EDT) THC Positive Cocaine Screen, Urine Negative Opiate Screen, Urine Negative Methamphetamine Screen Urine Negative Amphetamine Screen, Urine Negative Benzodiazepines Screen, Urine Negative Barbiturate Screen, Urine Negative Methadone Screen, Urine Negative Buprenophine Screen, Urine Negative TCA, Urine Positive MDMA Urine Negative ng/mL Oxycodone Screen, Urine Positive Phencyclidine (PCP), Urine Negative Propoxyphene, Urine Negative Fentanyl, Urine Negative Urine Urine specimen obtained by clean catch procedure / Unknown 04/01/2025 10:43 AM EDT Narrative Cookie Alcaraz RN - 04/01/2025 10:43 AM EDT UTOX cup Lot#[id number] Exp. 08/30/26 Internal Pass Control Sue Alicia MD POINT OF CARE TEST ENTER/EDIT ORDERABLES Final Result documented in this encounter Visit Diagnoses Diagnosis intermediate current use of opiate analgesic- Primary documented in this encounter Additional Health Concerns Assessment Noted Time PHQ-9 Depression Total Score: 19 024 2:37 PM EDT documented as of this encounter Care Teams Tier Truck Driver Relationship Specialty Start Date End Date Sue Alicia MD [address] [place] [address] PCP - General Family Medicine 08/09/23 documented as of this encounter
== END 2025-04-03 09:39 | disposition home or self-care (01) ==
LOC: HO.HPS 09:13
PROVIDERS: PCP General Practice; Visit Provider Internal Medicine
DX: J45.909 Unspecified asthma, uncomplicated (principal); G47.33 Obstructive sleep apnea (adult) (pediatric); Z99.89 Dependence on other enabling machines and devices
CPT/HCPCS: 99213

== ENCOUNTER 2025-04-03 09:09 | Outpatient (REF) | payer MEDICARE, MEDICAID, SELFPAY ==
[2025-04-03 10:23] LABS: MANUAL DIFF FLAG NO
[2025-04-03 10:44] LABS: Basophils Percent Auto 0.5 % (0-2); Eosinophils Absolute Auto 0.3 X10*3/uL (0.0-0.4); Eosinophils Percent Auto 4.6 % (0-4); Hematocrit 38.8 % (37.0-47.0); Hemoglobin 12.3 g/dl (12.0-16.0); Imm Gran Abs Auto 0.03 X10*3/uL (0.00-0.03); Imm Gran Pct Auto 0.4 % (0.0-0.4); Lymphocytes Absolute Auto 1.5 X10*3/uL (1.2-4.9); Lymphocytes Percent Auto 20.4 % (20-40); Mean Corpuscular HGB Conc 31.7 g/dl (31.0-35.0); Mean Corpuscular Hemoglobin 29.4 pg (27.0-33.0); Mean Corpuscular Volume 92.6 fL (80.0-98.0); Mean Platelet Volume 9.8 fL (9.4-12.3); Monocytes Absolute Auto 0.5 X10*3/uL (0.1-1.2); Neutrophils Percent Auto 67.1 % (45-73); Platelet Count 274 X10*3/uL (160-400); Red Blood Count 4.19 X10*6/uL (4.20-5.50); Red Cell Distribution Width 14.5 % (11.0-16.0); White Blood Count 7.4 X10*3/uL (4.8-10.8)
[2025-04-03 11:05] LABS: Appearance Urine Clear; Color Urine Yellow; Glucose Urine UA Negative (Negative); Leukocyte Esterase Urine Negative (Negative); Nitrite Urine Negative (Negative); Specific Gravity - Urine <= 1.005 (1.005-1.025); Urine Blood Negative (Negative); Urine Ketones Negative (Negative); Urine Protein Negative (Neg-Trace)
[2025-04-03 11:10] LABS: Bacteria Urine None Seen (None Seen); Hyaline Casts Urine 0-2 /LPF (0-2); RBC Urine 0-2 /HPF (0-2); Squamous Epithelial Cell Urine 0-2 /HPF (0-2); WBC Urine 0-5 /HPF (0-5)
[2025-04-03 11:44] LABS: Creatinine Urine 21.24 mg/dL; Microalbumin Urine < 5.0 mg/L; Total Protein Urine Random < 7 mg/dL (<12)
[2025-04-03 11:58] LABS: Parathyroid Hormone Intact 165.9 pg/mL (8.7-77.1)
[2025-04-03 11:59] LABS: Albumin Level 3.9 g/dL (3.5-5.0); Anion Gap 14 (12-20); Blood Urea Nitrogen 22 mg/dL (9-16); Carbon Dioxide 30 mmol/L (22-29); Chloride 104 mmol/L (96-108); Estimated Glomerular Filt Rate 34; Magnesium 2.4 mg/dL (1.6-2.6); Potassium 4.1 mmol/L (3.3-5.1); Sodium 144 mmol/L (135-145)
[2025-04-03 12:10] LABS: Vitamin D 25-OH Total 75.9 ng/mL (>30)
[2025-04-08 21:48] LABS: N-Telopeptide 14 (see note); NTXCreaRU 24 mg/dL (20-275)
== END 2025-04-03 09:10 | disposition home or self-care (01) ==
LOC: HO.LAB 09:09
PROVIDERS: Internal Medicine Endocrinology, Diabetes & Metabolism; PCP General Practice; Visit Provider Internal Medicine Nephrology
DX: M85.80 Other specified disorders of bone density and structure, unspecified site (principal); D68.62 Lupus anticoagulant syndrome; E11.21 Type 2 diabetes mellitus with diabetic nephropathy; N18.32 Chronic kidney disease, stage 3b; J45.909 Unspecified asthma, uncomplicated; G47.33 Obstructive sleep apnea (adult) (pediatric); Z99.89 Dependence on other enabling machines and devices
CPT/HCPCS: 36415; 80051; 81001; 82040; 82043; 82306; 82310; 82523; 82565; 82570; 83735; 83970; 84100; 84156; 84520; 85025; 87086; 99212

== ENCOUNTER 2025-04-09 22:57 | Emergency (ER) | payer MEDICARE, MEDICAID, SELFPAY ==
--- NOTE | 2025-04-09 | ECG_ITS ---
Test Reason : CHEST PAIN Blood Pressure : */* mmHG Vent. Rate : 90 BPM Atrial Rate : 90 BPM P-R Int : 178 ms QRS Dur : 78 ms QT Int : 392 ms P-R-T Axes : 34 -26 38 degrees QTcB Int : 479 ms Sinus rhythm with occasional Premature ventricular complexes Otherwise normal ECG When compared with ECG of 10-Sep-2024 01:29, VA interval has decreased Referred By: Generic ED Physician Electronically Signed By: NANCY RODRIGUEZ MD
--- NOTE | ~2025-04-09 | XR_ITS ---
CLINICAL HISTORY: sob 2 view chest x-ray Comparison: None Findings: No consolidation or effusion. Normal size heart. No acute fracture. IMPRESSION: 1. No acute findings. This document has been electronically signed by: Megan nAn MD on 04/10/2025 00:01:56
[2025-04-09 22:59] VITALS: BP 155/128; PULSE 95; RESP 24; TEMP 36.4; O2SAT 100; BMI 25.9
[2025-04-09 23:04] VITALS: BP 161/86
[2025-04-09 23:26] LABS: MANUAL DIFF FLAG NO
[2025-04-09 23:27] LABS: Basophils Percent Auto 0.2 % (0-2); Eosinophils Absolute Auto 0.3 X10*3/uL (0.0-0.4); Eosinophils Percent Auto 2.5 % (0-4); Hematocrit 41.1 % (37.0-47.0); Hemoglobin 14.1 g/dl (12.0-16.0); Imm Gran Abs Auto 0.04 X10*3/uL (0.00-0.03); Imm Gran Pct Auto 0.3 % (0.0-0.4); Lymphocytes Absolute Auto 3.7 X10*3/uL (1.2-4.9); Lymphocytes Percent Auto 28.8 % (20-40); Mean Corpuscular HGB Conc 34.3 g/dl (31.0-35.0); Mean Corpuscular Hemoglobin 29.7 pg (27.0-33.0); Mean Corpuscular Volume 86.7 fL (80.0-98.0); Mean Platelet Volume 9.4 fL (9.4-12.3); Monocytes Percent Auto 7.9 % (2-11); Neutrophils Absolute Auto 7.7 x10*3/uL (2.0-8.3); Neutrophils Percent Auto 60.3 % (45-73); Platelet Count 336 X10*3/uL (160-400); Red Blood Count 4.74 X10*6/uL (4.20-5.50); Red Cell Distribution Width 14.3 % (11.0-16.0); White Blood Count 12.9 X10*3/uL (4.8-10.8)
[2025-04-09 23:41] LABS: Alanine Aminotransferase 16 U/L (0-31); Albumin Level 4.4 g/dL (3.5-5.0); Alkaline Phosphatase 48 U/L (39-117); Anion Gap 18 (12-20); Aspartate Amino Transferase 33 U/L (5-31); Bilirubin Total 0.3 mg/dL (0.0-1.0); Blood Urea Nitrogen 22 mg/dL (9-16); Calcium 9.8 mg/dL (8.4-10.2); Carbon Dioxide 25 mmol/L (22-29); Chloride 103 mmol/L (96-108); Creatinine Clr Calc Pharmacy 30.8; Estimated Glomerular Filt Rate 34; Glucose Random 107 mg/dL (60-115); Lipase 133 U/L (8-78); Potassium 3.9 mmol/L (3.3-5.1); Sodium 142 mmol/L (135-145); Total Protein 8.2 g/dL (6.5-8.0)
[2025-04-09 23:47] LABS: Troponin-I High Sensitivity 6.8 ng/L (<3.5-17.0)
== END 2025-04-10 06:04 | disposition left against medical advice (07) ==
PROVIDERS: Emergency Provider Emergency Medicine; PCP General Practice
DX: R06.02 Shortness of breath (principal); Z53.21 Procedure and treatment not carried out due to patient leaving prior to being seen by health care provider
CPT/HCPCS: 36415; 71046; 80053; 83690; 83735; 84484; 85025; 93005; 99283

== ENCOUNTER → 2025-04-09 23:06 | Outpatient (BNV) | payer MEDICARE, MEDICAID, SELFPAY | PROVIDERS: Emergency Provider Emergency Medicine; PCP General Practice; Visit Provider Internal Medicine Cardiovascular Disease | DX: I49.3 Ventricular premature depolarization (principal) | CPT/HCPCS: 93010 ==

== ENCOUNTER → 2025-04-09 23:25 | Outpatient (BNV) | payer MEDICARE, MEDICAID, SELFPAY | PROVIDERS: PCP General Practice; Visit Provider Radiology Diagnostic Radiology | DX: R06.02 Shortness of breath (principal) | CPT/HCPCS: 71046 ==

== ENCOUNTER 2025-04-10 17:32 | Emergency (ER) | payer MEDICARE, MEDICAID, SELFPAY ==
--- NOTE | 2025-04-10 | ECG_ITS ---
Test Reason : CHEST PAIN Blood Pressure : */* mmHG Vent. Rate : 88 BPM Atrial Rate : 88 BPM P-R Int : 170 ms QRS Dur : 70 ms QT Int : 416 ms P-R-T Axes : 49 -26 35 degrees QTcB Int : 503 ms Sinus rhythm with occasional Premature ventricular complexes and Premature atrial complexes Septal infarct , age undetermined Abnormal ECG When compared with ECG of 09-Apr-2025 23:06, Premature atrial complexes are now Present Septal infarct is now Present Referred By: Generic ED Physician Electronically Signed By: NANCY RODRIGUEZ MD
[2025-04-10 17:37] VITALS: BP 182/102; PULSE 84; O2SAT 96
[2025-04-10 18:05] VITALS: BP 175/94; PULSE 85; RESP 20; TEMP 37.4; O2SAT 100; BMI 25.1
--- NOTE | 2025-04-10 18:19 | ED.CHESTPAIN ---
HPI - Chest Pain General Chief Complaint: Chest Pain Stated Complaint: chest pain , n/v sob Time Seen by Provider: 04/10/25 17:49 Source: patient and EMS Mode of arrival: EMS Limitations: language barrier (Fijian-speaking american sign language interpreter utilized) History of Present Illness ED Provider: kevin julien np HPI narrative: Patient is a 64-year-old female past medical history of asthma, LONA, rheumatoid arthritis, fibromyalgia, hyperparathyroidism, hypothyroidism, dyslipidemia, type 2 diabetes, gout who presents emergency department for evaluation. She reports that since yesterday she has been experiencing midsternal nonradiating chest pain with associated shortness of breath, that is intermittent in nature. She is not able to identify exacerbating or alleviating factors. By her account this feels consistent with when she has experienced asthma attacks in the past, she has been using her albuterol inhaler at home without improvement. She has associated nausea and had 2 episodes of vomiting today. She admits to having chronic constipation but denies any recent diarrhea. She denies any fevers or chills. Denies associated dizziness, lightheadedness, neck pain, recent lower extremity redness pain or swelling. Related Data Home Medications ?Medication ?Instructions ?Recorded ?Confirmed atorvastatin 20 mg tablet 20 mg PO DAILY 08/21/20 04/03/25 hydrocodone 5 mg-acetaminophen 325 1 tab PO Q6H PRN Pain 08/21/20 04/03/25 mg tablet omeprazole magnesium 20 mg 20 mg PO DAILY 08/21/20 04/03/25 tablet,delayed release (Prilosec OTC) aripiprazole 10 mg tablet (Abilify) 10 mg PO .every 2 days 03/22/22 04/03/25 artifi.tears(hypromellose)(PF) 0.3 1 drp ophthalmic (eye) Q4-6H PRN 03/22/22 04/03/25 % eye drops Dry Eye(S) docusate sodium 100 mg capsule 100 mg PO BID 03/22/22 04/03/25 (Colace) furosemide 40 mg tablet 40 mg PO .every 2 days 03/22/22 04/03/25 irbesartan 75 mg tablet 75 mg PO DAILY 03/22/22 04/03/25 levothyroxine 75 mcg capsule 75 mcg PO DAILY 03/22/22 04/03/25 melatonin 10 mg capsule 10 mg PO BEDTIME PRN Insomnia 03/22/22 04/03/25 naloxone 4 mg/actuation nasal 1 spray intranasal Q2M 03/22/22 04/03/25 spray (Narcan) polyethylene glycol 3350 17 17 g PO DAILY 03/22/22 04/03/25 gram/dose oral powder (Miralax) sennosides 8.6 mg capsule (senna) 8.6 mg PO DAILY 03/22/22 04/03/25 zolpidem 5 mg tablet (Ambien) 5 mg PO BEDTIME PRN Insomnia 03/22/22 04/03/25 metoprolol tartrate 25 mg tablet 25 mg PO BID 05/06/22 04/03/25 blood sugar diagnostic (FreeStyle #10 ea 07/22/22 04/03/25 Lite Strips) Previous Rx's ?Medication ?Instructions ?Recorded cane #1 ea 01/29/21 blood-glucose meter (FreeStyle #1 ea 01/15/22 [place] Lite kit) albuterol sulfate 90 mcg/actuation 2 puff PO Q6H PRN for dyspnea #8.5 03/22/22 aerosol inhaler (ProAir HFA) grams alcohol swabs (Alcohol Prep Pads) See Rx Instructions .Route 11/08/23 .COMPLEX #200 pad metformin 500 mg tablet,extended 1,000 mg (2 x 500 mg) PO BID #60 05/04/24 release 24 hr tabs semaglutide 1 mg/dose (4 mg/3 mL) 1 mg (0.75 mL) subcut QWEEK #3 mL 06/07/24 subcutaneous pen injector (Ozempic) pen needle, diabetic 32 gauge x #100 ea 08/23/24 (Pentips Pen Needle) albuterol sulfate 1.25 mg/3 mL 1.25 mg (3 mL) inhalation Q4-6H 09/20/24 solution for nebulization PRN shortness of breath or wheezing 30 days #90 mL cholecalciferol (vitamin D3) 1,250 1,250 mcg PO QWEEK 90 days #13 caps 01/25/25 mcg (50,000 unit) capsule psyllium husk 3.4 gram/5.4 gram 1 tbsp PO BID #660 grams 01/30/25 oral powder (Metamucil) allopurinol 100 mg tablet 200 mg (2 x 100 mg) PO QPM 90 days 02/20/25 #180 tabs cyclobenzaprine 5 mg tablet 5 mg PO BEDTIME #90 tabs 03/06/25 gabapentin 300 mg capsule 900 mg (3 x 300 mg) PO BEDTIME 30 03/06/25 days #90 caps hydroxychloroquine 200 mg tablet 200 mg PO BID #180 tabs 03/06/25 (Plaquenil) prednisone 5 mg tablet 5 mg PO DAILY 90 days #90 tabs 03/06/25 famotidine 20 mg tablet 20 mg PO DAILY #14 tabs 04/10/25 Allergies Allergy/AdvReac Type Severity Reaction Status Date / Time aspirin [ASA] Allergy Intermediate ITCHY, Verified 04/10/25 18:06 HOT, AND HEADACHE calcium Allergy Intermediate Vomiting Verified 04/10/25 18:06 Penicillins Allergy Intermediate RASH Verified 04/10/25 18:06 tofacitinib [Xeljanz] Allergy Intermediate chest Verified 04/10/25 18:06 pain, headaches sulfasalazine Allergy Unknown unknown Verified 04/10/25 18:06 Review of Systems Review of Systems: Yes all other systems are reviewed and are negative [facility] Past Medical History Attestation statement: The following information was validated with the patient. Source: old records reviewed Medical History Undifferentiated connective tissue disease Lipoma On allopurinol therapy Gout Breast calcification, right Positive PHYLLIS (antinuclear antibody) Fibromyalgia History of primary hyperparathyroidism Osteopenia Dyslipidemia Hypothyroidism LONA on CPAP Bronchial asthma Epidermal inclusion cyst Morbid obesity Gout of right foot PHYLLIS positive Seronegative rheumatoid arthritis Diabetes type 2, uncontrolled Surgical History History of surgery Hx of excision of mass History of kidney surgery S/P breast lumpectomy H/O parathyroidectomy Hx of cholecystectomy H/O tubal ligation Family History Family History Daughter History of breast cancer Father Cirrhosis Diabetes Arthritis Mother Arthritis Sister Diabetes Social History Social History Alcohol intake: never Patient Tobacco Use Status: Former Tobacco user Tobacco use type: Cigarette Substance Use Type: Marijuana Advance Directives: No Advance Directives Information Provided: No Physical Exam Vital Signs: Vital Signs: Last Vital Signs Temp 99.3 F 04/10/25 18:05 Pulse 85 04/10/25 18:05 Resp 20 04/10/25 18:05 BP 175/94 H 04/10/25 18:05 Pulse Ox 100 04/10/25 18:05 O2 Del Method Room Air 04/10/25 18:05 BMI result Body Mass Index 25.1 Appearance: Alert.?Oriented to person, place and time. No acute distress.?Normal affect. Eyes: Pupils equal, round and reactive to light.? ENT: Pharynx normal.?? Neck: Normal inspection.? Neck supple.??No JVD. CVS: Heart sounds normal. Normal heart rate and rhythm.? Pulses normal.?? Respiratory: No respiratory distress.? Lung sounds clear to auscultation bilaterally?? Abdomen: Soft and non-tender. Normoactive bowel sounds. ? Skin: Skin warm and dry.? Normal skin color.? ?? Extremities: No lower extremity edema.? No calf ttp? Neuro: Moves all extremities spontaneously. Sensation intact bilaterally. CN II-XII intact. No focal neuro deficits. Ambulates with normal steady gait. Course Reevaluation(s) Reevaluation #1: Chest x-ray without consolidation infiltrate to suggest pneumonia, no pleural effusions. CBC reveals leukocytosis of 14,300 no anemia or thrombocytopenia. No electrolyte derangement. Renal function consistent with baseline no evidence of DONI. Minimally elevated AST at 38 otherwise unremarkable LFT. Lipase is normal. high Sensitive troponin within normal range, EKG nonischemic. Viral serologies negative. Reevaluation #2: Patient with symptomatic improvement after receiving Pepcid and Zofran, had not yet received any nebulizer treatment. My feel less concern that these symptoms are secondary to an asthma exacerbation. Will attempt a p.o. trial, obtain delta troponin, if negative feel that she is stable for discharge and outpatient follow-up Time: 20:49 Medications Administered Discontinued Medications Generic Name Dose Route Start Last Admin Trade Name Freq PRN Reason Stop Dose Admin Famotidine 20 mg 04/10/25 18:33 04/10/25 19:00 Famotidine 20 Mg Tablet PO 04/10/25 18:34 20 mg ONCE ONE Administration Lorazepam 0.5 mg 04/10/25 18:33 04/10/25 19:00 Lorazepam 0.5 Mg Tablet PO 04/10/25 18:34 0.5 mg ONCE ONE Administration Ondansetron HCl 4 mg 04/10/25 18:33 04/10/25 19:00 Ondansetron Odt 4 Mg Tab.Andres [place] 04/10/25 18:34 4 mg ONCE ONE Administration Medical Decision Making Medical Decision Making MDM Narrative: Patient is a 64-year-old female past medical history of asthma, LONA, rheumatoid arthritis, fibromyalgia, hyperparathyroidism, hypothyroidism, dyslipidemia, type 2 diabetes, gout who presents to the emergency department for evaluation with complaint of chest pain of breath intermittent since yesterday, nonradiating with associated nausea/vomiting as per HPI. She is quite anxious at the time of my evaluation, but easily able to calm with verbal direction. No evidence of volume overload or shock on exam. Low suspicion for acute PE (Wells low risk), pneumothorax, thoracic aortic dissection, cardiac effusion / tamponade. No recent trauma or injury, no tracheal deviation, unlikely tension pneumothorax. No recent URI symptoms to suggest viral illness, pneumonia, costochondritis. No abdominal tenderness upon palpation, negative Coulter sign, lower suspicion for acute cholecystitis, choledocholithiasis, no fever or jaundice to suggest acute cholangitis, however she does have associated nausea/vomiting, may possibly be biliary colic secondary to cholelithiasis. Although she denies a history of acid reflux, she has no tenderness over the epigastrium or left upper quadrant, her symptoms may be secondary to STEVAN, no recent hematemesis history less likely to suggest PUD. She does have a history of diabetes however with benign abdominal examination inability to eat throughout today with out abdominal pain I have lower suspicion for acute pancreatitis. Overall, ACS is being considered given higher risk features. Will obtain CBC to evaluate for leukocytosis/ anemia, CMP and lipase to evaluate for abnormal electrolytes /abnormal renal function/ abnormal hepatic/biliary function, EKG and troponin to evaluate for ischemia/ACS. Chest x-ray to evaluate for consolidation/ infiltrate/ mass/ pulmonary congestion, ASA will be deferred given her allergy, pain control and reassessment. On auscultation of her lung sounds she does not have any wheezing, they are clear to the apices bilaterally but she is quite insistent that she have a breathing treatment at this time Differential Diagnosis Differential Diagnoses: The differential diagnosis associated with the presentation includes (See narrative above) Admission/Observation Consideration of admission/observation: Escalation of care including admission/observation considered (See narrative above and course narrative for further detail) Lab Data MDM Lab Attestation statement: I reviewed the patient's lab results. 04/10/25 19:15 04/10/25 19:15 Labs: Lab Results 04/10/25 04/10/25 Range/Units 19:15 21:41 WBC 14.3 H (4.8-10.8) X10*3/uL RBC 5.10 (4.20-5.50) X10*6/uL Hgb 15.2 (12.0-16.0) g/dl Hct 44.0 (37.0-47.0) % MCV 86.3 (80.0-98.0) fL MCH 29.8 (27.0-33.0) pg MCHC 34.5 (31.0-35.0) g/dl RDW 14.4 (11.0-16.0) % Plt Count 311 (160-400) X10*3/uL MPV 9.3 L (9.4-12.3) fL Immature Gran % (Auto) 0.3 (0.0-0.4) % Neut % (Auto) 85.7 H (45-73) % Lymph % (Auto) 7.7 L (20-40) % [place] % (Auto) 6.1 (2-11) % Eos % (Auto) 0.1 (0-4) % Baso % (Auto) 0.1 (0-2) % Lymph # (Auto) 1.1 L (1.2-4.9) X10*3/uL [place] # (Auto) 0.9 (0.1-1.2) X10*3/uL Eos # (Auto) 0.0 (0.0-0.4) X10*3/uL Baso # (Auto) 0.0 (0.0-0.2) X10*3/uL Abs Immat Gran (auto) 0.05 H (0.00-0.03) X10*3/uL Absolute Neuts (auto) 12.2 H (2.0-8.3) x10*3/uL Absolute Nucleated RBC 0.000 (0.0-0.012) X10*3/uL Nucleated RBC % (auto) 0.0 (0.0-0.2) /100WBC Sodium 139 (135-145) mmol/L Potassium 4.0 (3.3-5.1) mmol/L Chloride 104 (96-108) mmol/L Carbon Dioxide 22 (22-29) mmol/L Anion Gap 17 (12-20) BUN 26 H (9-16) mg/dL Creatinine 1.51 H (0.5-1.4) mg/dL Estim Creat Clear Calc 32.1 Estimated GFR 35 Random Glucose 91 (60-115) mg/dL Calcium 9.3 (8.4-10.2) mg/dL Magnesium 2.1 (1.6-2.6) mg/dL Total Bilirubin 0.6 (0.0-1.0) mg/dL AST 38 H (5-31) U/L ALT 20 (0-31) U/L Alkaline Phosphatase 47 (39-117) U/L Troponin I High Sens 14.9 D 15.6 (<3.5-17.0) ng/L Total Protein 8.2 H (6.5-8.0) g/dL Albumin 4.3 (3.5-5.0) g/dL Lipase 73 (8-78) U/L Influenza Type A (PCR) NEGATIVE (Negative) Influenza Type B (PCR) NEGATIVE (Negative) RSV RNA Qual (PCR) NEGATIVE (Negative) SARS-CoV-2 RNA (RT-PCR) NEGATIVE (Negative) Independent Interpretation I performed an independent interpretation of an: EKG (Reveals a sinus rhythm with PVC and PAC, ventricular rate of 88, normal SNEHA, QTC prolonged at 503 MS, no ST-elevation) Independent Historian Clinical information obtained from an independent historian. History obtained from or confirmed by: EMS External Record Review External record reviewed: Outpatient record Chronic Conditions Patient?s care impacted by: Other (See narrative above) Discharge Plan Discharge Clinical Impression: Chest pain, Gastritis Patient Disposition: Home, Self-Care Instructions: Chest Pain (ED), Gastritis (ED) Additional Instructions: You were evaluated in the emergency department for chest pain as well as nausea and small amounts of vomiting. While in the emergency department, you were given an anti-anxiety medication as well as medication to help with acid reflux. Your workup today was very reassuring. EKG did not show signs of a heart attack. Chest x-ray did not show evidence of pneumonia. You had no wheezing to suggest masturbation when you arrive. Avoid triggers such as fatty foods, spicy foods, tomatoes, onions, coffee, tea, chocolate, and alcohol. Remaining upright after meals for 1-2 hours. Avoid eating at least 3 hours before bedtime. Try sleeping on an incline if possible. Prescription for Pepcid/famotidine has been sent to your pharmacy. Contact your primary care provider to arrange for a follow-up visit. Return with any new or worsening symptoms or concerns Prescriptions: New famotidine 20 mg tablet 20 mg PO DAILY Qty: 14 0RF No Action albuterol sulfate [ProAir HFA] 90 mcg/actuation HFA aerosol inhaler 2 puff PO Q6H PRN (Reason: for dyspnea) Qty: 8.5 0RF alcohol swabs [Alcohol Prep Pads] Pads, Medicated See Rx Instructions .ROUTE .COMPLEX Qty: 200 11RF Dose Instruction: USE DIRECTED SIX TIMES DAILY Rx Instructions: USE DIRECTED SIX TIMES DAILY metformin 500 mg tablet extended release 24 hr 1,000 mg PO BID Qty: 60 5RF Ozempic 1 mg/dose (4 mg/3 mL) pen injector 1 mg subcut QWEEK Qty: 3 5RF (DME) pen needle, diabetic [Pentips Pen Needle] 32 gauge x 5/32 needle See Rx Instructions .ROUTE .COMPLEX Qty: 100 3RF Dose Instruction: USE 1 DAILY WITH VICTOZA Rx Instructions: USE 1 DAILY WITH VICTOZA albuterol sulfate 1.25 mg/3 mL solution for nebulization 1.25 mg inhalation Q4-6H PRN (Reason: shortness of breath or wheezing) 30 Days Qty: 90 3RF cholecalciferol (vitamin D3) 1,250 mcg (50,000 unit) capsule 1,250 mcg PO QWEEK 90 Days Qty: 13 1RF allopurinol 100 mg tablet 200 mg PO QPM 90 Days Qty: 180 0RF atorvastatin 20 mg tablet 20 mg PO DAILY omeprazole magnesium [Prilosec OTC] 20 mg tablet,delayed release (DR/EC) 20 mg PO DAILY hydrocodone-acetaminophen 5-325 mg tablet 1 tab PO Q6H PRN (Reason: Pain) furosemide 40 mg tablet 40 mg PO .every 2 days (DME) cane Device See Rx Instructions .ROUTE .MEDSUPPLY Qty: 1 0RF Rx Instructions: As directed (DME) blood-glucose meter [FreeStyle [place] Lite] Kit See Rx Instructions .Route Qty: 1 0RF Rx Instructions: As directed (DME) FreeStyle Lite Strips Strip See Rx Instructions .ROUTE QID Qty: 10 Rx Instructions: As directed aripiprazole [Abilify] 10 mg tablet 10 mg PO .every 2 days zolpidem [Ambien] 5 mg tablet 5 mg PO BEDTIME PRN (Reason: Insomnia) artifi.tears(hypromellose)(PF) 0.3 % drops 1 drp ophthalmic (eye) Q4-6H PRN (Reason: Dry Eye(S)) docusate sodium [Colace] 100 mg capsule 100 mg PO BID irbesartan 75 mg tablet 75 mg PO DAILY levothyroxine 75 mcg capsule 75 mcg PO DAILY melatonin 10 mg capsule 10 mg PO BEDTIME PRN (Reason: Insomnia) polyethylene glycol 3350 [Miralax] 17 gram/dose powder 17 g PO DAILY naloxone [Narcan] 4 mg/actuation spray,non-aerosol 1 spray intranasal Q2M Rx Instructions: spray 1 dose into ONE nostril; alternate nostrils w each dose until help arrives senna 8.6 mg capsule 8.6 mg PO DAILY metoprolol tartrate 25 mg tablet 25 mg PO BID prednisone 5 mg tablet 5 mg PO DAILY 90 Days Qty: 90 1RF hydroxychloroquine [Plaquenil] 200 mg tablet 200 mg PO BID Qty: 180 1RF gabapentin 300 mg capsule 900 mg PO BEDTIME 30 Days Qty: 90 5RF cyclobenzaprine 5 mg tablet 5 mg PO BEDTIME Qty: 90 1RF Metamucil 3.4 gram/5.4 gram powder 1 tbsp PO BID Qty: 660 0RF Rx Instructions: mix into at least 8 oz of water or juice before administering Referrals: Physician,Unknown J [Primary Care Provider] - Print Language: Fijian
[2025-04-10] MEDS: Famotidine 20 MG TABLET PO (19:00)
[2025-04-10] MEDS: Ondansetron ODT 4 MG TAB.RAPDIS TRANSLINGU (19:00)
[2025-04-10] MEDS: LORazepam 0.5 MG TABLET PO (19:00)
[2025-04-10 19:29] LABS: MANUAL DIFF FLAG NO
[2025-04-10 19:31] LABS: Basophils Percent Auto 0.1 % (0-2); Eosinophils Percent Auto 0.1 % (0-4); Hemoglobin 15.2 g/dl (12.0-16.0); Imm Gran Abs Auto 0.05 X10*3/uL (0.00-0.03); Imm Gran Pct Auto 0.3 % (0.0-0.4); Lymphocytes Absolute Auto 1.1 X10*3/uL (1.2-4.9); Lymphocytes Percent Auto 7.7 % (20-40); Mean Corpuscular HGB Conc 34.5 g/dl (31.0-35.0); Mean Corpuscular Hemoglobin 29.8 pg (27.0-33.0); Mean Corpuscular Volume 86.3 fL (80.0-98.0); Mean Platelet Volume 9.3 fL (9.4-12.3); Monocytes Absolute Auto 0.9 X10*3/uL (0.1-1.2); Monocytes Percent Auto 6.1 % (2-11); Neutrophils Absolute Auto 12.2 x10*3/uL (2.0-8.3); Neutrophils Percent Auto 85.7 % (45-73); Platelet Count 311 X10*3/uL (160-400); Red Cell Distribution Width 14.4 % (11.0-16.0); White Blood Count 14.3 X10*3/uL (4.8-10.8)
[2025-04-10 19:46] LABS: Magnesium 2.1 mg/dL (1.6-2.6)
[2025-04-10 19:48] LABS: Alanine Aminotransferase 20 U/L (0-31); Albumin Level 4.3 g/dL (3.5-5.0); Alkaline Phosphatase 47 U/L (39-117); Anion Gap 17 (12-20); Aspartate Amino Transferase 38 U/L (5-31); Bilirubin Total 0.6 mg/dL (0.0-1.0); Blood Urea Nitrogen 26 mg/dL (9-16); Calcium 9.3 mg/dL (8.4-10.2); Carbon Dioxide 22 mmol/L (22-29); Chloride 104 mmol/L (96-108); Creatinine Clr Calc Pharmacy 32.1; Estimated Glomerular Filt Rate 35; Glucose Random 91 mg/dL (60-115); Sodium 139 mmol/L (135-145); Total Protein 8.2 g/dL (6.5-8.0)
[2025-04-10 19:55] LABS: Troponin-I High Sensitivity 14.9 ng/L (<3.5-17.0)
[2025-04-10 20:07] LABS: Influenza A PCR NEGATIVE (Negative); Influenza B PCR NEGATIVE (Negative); Resp Syncy Virus RNA Qual PCR NEGATIVE (Negative); SARS COV2 PCR INHOUSE NEGATIVE (Negative)
[2025-04-10 20:09] LABS: Lipase 73 U/L (8-78)
[2025-04-10 22:12] LABS: Troponin-I High Sensitivity 15.6 ng/L (<3.5-17.0)
--- NOTE | 2025-04-10 23:05 | PC.NURSE ---
Just took over care from Rn Keerthi, pt being discharged at this time, reviewed discharge instructions with pt. pt verbalized understanding.
[2025-04-10 23:16] VITALS: BP 133/88; PULSE 85; RESP 20; TEMP 36.1; O2SAT 98
[2025-04-10 23:17] VITALS: BP 133/88; PULSE 85; RESP 20; TEMP 36.1; O2SAT 98
== END 2025-04-10 23:18 | disposition home or self-care (01) ==
PROVIDERS: Nurse Practitioner Family; Emergency Provider Emergency Medicine
DX: R07.9 Chest pain, unspecified (principal); K29.70 Gastritis, unspecified, without bleeding; R06.02 Shortness of breath; E11.9 Type 2 diabetes mellitus without complications
CPT/HCPCS: 0241U; 36415; 80053; 83690; 83735; 84484; 85025; 93005; 99285

== ENCOUNTER → 2025-04-10 17:46 | Outpatient (BNV) | payer MEDICARE, MEDICAID, SELFPAY | PROVIDERS: Emergency Provider Emergency Medicine; Visit Provider Internal Medicine Cardiovascular Disease | DX: I49.1 Atrial premature depolarization (principal); I49.3 Ventricular premature depolarization | CPT/HCPCS: 93010 ==

== ENCOUNTER 2025-04-11 15:16 | Inpatient (IN) | payer MEDICARE, MEDICAID, SELFPAY ==
[2025-04-11] VITALS (16 sets, daily range): BP systolic 102–185; BP diastolic 6–103; PULSE 77–100; RESP 16–32; TEMP 36.6–37.8; O2SAT 96–100; BMI 23.9
--- NOTE | 2025-04-11 | ECG_ITS ---
Test Reason : chest pain Blood Pressure : */* mmHG Vent. Rate : 97 BPM Atrial Rate : 97 BPM P-R Int : 158 ms QRS Dur : 68 ms QT Int : 390 ms P-R-T Axes : 48 -30 45 degrees QTcB Int : 495 ms Sinus rhythm with Premature atrial complexes Left axis deviation Prolonged QT Abnormal ECG When compared with ECG of 10-Apr-2025 17:46, Premature ventricular complexes are no longer Present Criteria for Septal infarct are no longer Present Referred By: Generic ED Physician Electronically Signed By: NANCY RODRIGUEZ MD
--- NOTE | ~2025-04-11 | XR_ITS ---
CLINICAL HISTORY: sob 2 view chest x-ray Comparison: None Findings: The lungs are clear. Heart size is normal. No acute fracture. IMPRESSION: 1. No acute findings. This document has been electronically signed by: Олег Rios MD on 04/11/2025 16:43:19
--- NOTE | ~2025-04-11 | NM_ITS ---
EXAMINATION: NM LUNG PERFUSION HISTORY: elevated d dimer r/o PE. TECHNIQUE: A pulmonary perfusion scan was performed following the intravenous administration of 4.0 mCi technetium 99m-MAA. Multiple projections. COMPARISON: Correlation is made with AP and lateral views of the chest dated 04/11/2025. FINDINGS: There are segmental perfusion defects involving the posterior basal segments of both lower lobes. No additional segmental or subsegmental perfusion defects are identified. Findings are compatible with a high probability for pulmonary emboli. NM/NM pul perfusion IMPRESSION: High probability scan for pulmonary emboli. A report was sent to Nallely Alexandra NP by secure text message on 04/12/2025 at 11:16 AM. Electronically signed by: Isael Olivas MD 04/12/2025 11:17 AM JODIE
--- NOTE | ~2025-04-11 | US_ITS ---
EXAMINATION: US TRIPLEX LOWER EXTREMITY, BILATERAL CLINICAL INFORMATION: High probability for pulmonary embolus on perfusion scan COMPARISON: None available. TECHNIQUE: Color-flow triplex imaging with spectral analysis and compression Doppler were performed on the bilateral lower extremities. FINDINGS: Respiratory variation, normal compression and augmented flow are noted throughout the bilateral lower extremities. The visualized common femoral vein, superficial femoral vein, profunda femoral vein, popliteal vein and midcalf peroneal and posterior tibial venous segments show no evidence of deep venous thrombosis bilaterally. US/US venous duplex LE BI IMPRESSION: No evidence of deep venous thrombosis involving the bilateral lower extremities. Electronically signed by: Anish Cheung MD 04/12/2025 03:33 PM EDT
--- NOTE | ~2025-04-11 | CT_ITS ---
CLINICAL HISTORY: high prob PE on V Q, dyspnea CT angiography chest with contrast. 3D Postprocessing. Comparison: None Findings: No pulmonary artery filling defect demonstrated. Bilateral lower lobe posterior-dependent atelectasis with superimposed consolidation. Mild cardiomegaly. No pericardial effusion. No thoracic aortic aneurysm or dissection. Bones intact. IMPRESSION: No pulmonary embolism. Bilateral lower lobe posterior -dependent atelectasis with superimposed consolidation suspicious for pneumonia or aspiration. This document has been electronically signed by: Tyler Christine MD on 04/12/2025 20:30:31
--- NOTE | ~2025-04-11 | CT_ITS ---
CLINICAL HISTORY: diffuse abd pain CT abdomen and pelvis without contrast Comparison: None Findings: Small hiatal hernia. Hysterectomy. No biliary duct dilatation. Atrophic right kidney. No hydronephrosis. No urolithiasis. Liver, spleen, pancreas, and adrenal glands are within normal limits. Moderate amount of stool in the right hemicolon. There is pneumoperitoneum centered around the splenic flexure. No bowel obstruction. Aortic atherosclerosis. No aneurysm. Pelvic contents unremarkable. Normal appendix. The bones are intact. IMPRESSION: Pneumoperitoneum centered around the splenic flexure, concerning for bowel perforation. This document has been electronically signed by: Thu Argueta MD on 04/11/2025 18:48:58
--- NOTE | 2025-04-11 15:40 | PC.NURSE ---
Patient yemeni speaking, interpreter deaf services used. A&O x3 . Patient presents to ED c/o SOB and chest pain rated 10/10 non radiating. Nauseous but no vomiting. The SOB started around 1pm, patient used at home inhaler with no effect. O2 100% RA 45RR 98 bpm temp 98.3, deep breathing techniques utilized with some effect RR 20 86 BPM . 18G in left forearm by EMS. Zofran 4mg given by ems, effectiveness pending. Plan of care on going
--- NOTE | 2025-04-11 15:58 | ED_ITS ---
HPI - General Adult General Chief complaint: Dyspnea Stated complaint: chest pain and diff breathing since 1pm Time Seen by Provider: 04/11/25 15:40 Source: patient, EMS, RN notes reviewed, old records reviewed and insulator cutter and former () Mode of arrival: EMS Limitations: language barrier (Persian) History of Present Illness ED Provider: BELKIS GOODWIN PA-C HPI narrative: 64-year-old female with pmhx significant for asthma, LONA, RA, fibromyalgia, hyperparathyroidism, hypothyroidism, HDL, type 2 diabetes, gout presents to the ED today via EMS for evaluation of acute onset chest pain that began at 1300 today while resting at home. Reports associated reports associated shortness of breath, nausea without vomiting and diffuse abdominal pain. Patient states that she was evaluated in the ED last night for same. Workup was unremarkable and she was discharged home with famotidine. She presents today with similar symptoms. Denies any illicit substance use besides marijuana. Denies EtOH consumption. Related Data Home Medications ?Medication ?Instructions ?Recorded ?Confirmed atorvastatin 20 mg tablet 20 mg PO DAILY 08/21/20 04/03/25 hydrocodone 5 mg-acetaminophen 325 1 tab PO Q6H PRN Pain 08/21/20 04/03/25 mg tablet omeprazole magnesium 20 mg 20 mg PO DAILY 08/21/20 04/03/25 tablet,delayed release (Prilosec OTC) aripiprazole 10 mg tablet (Abilify) 10 mg PO .every 2 days 03/22/22 04/03/25 artifi.tears(hypromellose)(PF) 0.3 1 drp ophthalmic (eye) Q4-6H PRN 03/22/22 04/03/25 % eye drops Dry Eye(S) docusate sodium 100 mg capsule 100 mg PO BID 03/22/22 04/03/25 (Colace) furosemide 40 mg tablet 40 mg PO .every 2 days 03/22/22 04/03/25 irbesartan 75 mg tablet 75 mg PO DAILY 03/22/22 04/03/25 levothyroxine 75 mcg capsule 75 mcg PO DAILY 03/22/22 04/03/25 melatonin 10 mg capsule 10 mg PO BEDTIME PRN Insomnia 03/22/22 04/03/25 naloxone 4 mg/actuation nasal 1 spray intranasal Q2M 03/22/22 04/03/25 spray (Narcan) polyethylene glycol 3350 17 17 g PO DAILY 03/22/22 04/03/25 gram/dose oral powder (Miralax) sennosides 8.6 mg capsule (senna) 8.6 mg PO DAILY 03/22/22 04/03/25 zolpidem 5 mg tablet (Ambien) 5 mg PO BEDTIME PRN Insomnia 03/22/22 04/03/25 metoprolol tartrate 25 mg tablet 25 mg PO BID 05/06/22 04/03/25 blood sugar diagnostic (FreeStyle #10 ea 07/22/22 04/03/25 Lite Strips) Previous Rx's ?Medication ?Instructions ?Recorded cane #1 ea 01/29/21 blood-glucose meter (FreeStyle #1 ea 01/15/22 [place] Lite kit) albuterol sulfate 90 mcg/actuation 2 puff PO Q6H PRN for dyspnea #8.5 03/22/22 aerosol inhaler (ProAir HFA) grams alcohol swabs (Alcohol Prep Pads) See Rx Instructions .Route 11/08/23 .COMPLEX #200 pad metformin 500 mg tablet,extended 1,000 mg (2 x 500 mg) PO BID #60 05/04/24 release 24 hr tabs semaglutide 1 mg/dose (4 mg/3 mL) 1 mg (0.75 mL) subcut QWEEK #3 mL 06/07/24 subcutaneous pen injector (Ozempic) pen needle, diabetic 32 gauge x #100 ea 08/23/24 (P[place]ips Pen Needle) albuterol sulfate 1.25 mg/3 mL 1.25 mg (3 mL) inhalation Q4-6H 09/20/24 solution for nebulization PRN shortness of breath or wheezing 30 days #90 mL cholecalciferol (vitamin D3) 1,250 1,250 mcg PO QWEEK 90 days #13 caps 01/25/25 mcg (50,000 unit) capsule psyllium husk 3.4 gram/5.4 gram 1 tbsp PO BID #660 grams 01/30/25 oral powder (Metamucil) allopurinol 100 mg tablet 200 mg (2 x 100 mg) PO QPM 90 days 02/20/25 #180 tabs cyclobenzaprine 5 mg tablet 5 mg PO BEDTIME #90 tabs 03/06/25 gabapentin 300 mg capsule 900 mg (3 x 300 mg) PO BEDTIME 30 03/06/25 days #90 caps hydroxychloroquine 200 mg tablet 200 mg PO BID #180 tabs 03/06/25 (Plaquenil) prednisone 5 mg tablet 5 mg PO DAILY 90 days #90 tabs 03/06/25 famotidine 20 mg tablet 20 mg PO DAILY #14 tabs 04/10/25 Allergies Allergy/AdvReac Type Severity Reaction Status Date / Time aspirin [ASA] Allergy Intermediate ITCHY, Verified 04/11/25 15:33 HOT, AND HEADACHE calcium Allergy Intermediate Vomiting Verified 04/11/25 15:33 Penicillins Allergy Intermediate RASH Verified 04/11/25 15:33 tofacitinib [Xeljanz] Allergy Intermediate chest Verified 04/11/25 15:33 pain, headaches sulfasalazine Allergy Unknown unknown Verified 04/11/25 15:33 Review of Systems 2 Review of Systems: Constitutional: No fever, chills, fatigue, night sweats, weight changes ENT/Mouth: No ear pain, hearing loss, nasal congestion, sinus pain, rhinorrhea, sore throat Eyes: No eye pain, swelling, redness, vision changes, discharge Cardio: No palpitations, PEREZ, orthopnea, peripheral edema, +chest pain, +SOB Pulm: No SOB, cough, sputum, wheezing, dyspnea, hemoptysis GI: No nausea, vomiting, hematemesis, abdominal pain, diarrhea, constipation, hematochezia, melena, +nausea +abd pain : No irregular bleeding, dysuria, frequency, urgency, hesitancy, hematuria, flank pain, urinary flow changes, urinary incontinence or retention MSK: No back pain, neck pain, joint pain, myalgias Skin: No lesions, rashes Neuro: No weakness, numbness, paresthesias, LOC, dizziness, headache Psych: No anxiety/panic, depression, SI/HI, AH/VH All other systems reviewed and are negative. [facility] Past Medical History Attestation statement: The following information was validated with the patient. Source: old records reviewed and nursing notes reviewed Medical History Undifferentiated connective tissue disease Lipoma On allopurinol therapy Gout Breast calcification, right Positive PHYLLIS (antinuclear antibody) Fibromyalgia History of primary hyperparathyroidism Osteopenia Dyslipidemia Hypothyroidism LONA on CPAP Bronchial asthma Epidermal inclusion cyst Morbid obesity Gout of right foot PHYLLIS positive Seronegative rheumatoid arthritis Diabetes type 2, uncontrolled Surgical History History of surgery Hx of excision of mass History of kidney surgery S/P breast lumpectomy H/O parathyroidectomy Hx of cholecystectomy H/O tubal ligation Family History Family History Daughter History of breast cancer Father Cirrhosis Diabetes Arthritis Mother Arthritis Sister Diabetes Social History Social History Alcohol intake: never Patient Tobacco Use Status: Former Tobacco user Tobacco use type: Cigarette Smoked in Last 30 Days: No Use of substances other than those prescribed or required for medical reasons: No Substance Use Type: Marijuana Advance Directives: No Advance Directives Information Provided: Yes Do you have a plan to hurt others: No Plan Physical Exam ED Vital Signs: Vital Signs - 24 hr 04/11/25 15:26 04/11/25 15:37 04/11/25 16:23 Temperature 98.3 F 98.3 F Pulse Rate 97 98 77 Respiratory Rate 26 H 32 H 21 H Blood Pressure 173/103 H 178/103 H Pulse Oximetry 99 100 Oxygen Delivery Method Room Air Room Air Oxygen Flow Rate 04/11/25 19:18 Temperature 98.3 F Pulse Rate 99 Respiratory Rate 26 H Blood Pressure 125/89 Pulse Oximetry 100 Oxygen Delivery Method Nasal Cannula Oxygen Flow Rate 2 BMI result Body Mass Index 23.9 Hypertensive, tachypneic General: ill appearing, anxious, tremulous, diaphoretic Skin: Warm, dry, intact. No rashes or lesions. Head: Normocephalic, atraumatic. EENT: Hearing is intact b/l. Conjunctiva clear. Sclera is anicteric. PERRLA. EOM intact. Moist mucous membranes.? Neck: Supple without LAD Cardiac: Chest wall symmetric. RRR Lungs: Normal respiratory effort without accessory muscle use. CTA bilaterally. No rales, rhonchi, or wheezes.? Abdomen: soft, nondistended, diffusely tender to palpation without rebound or guarding. Active bowel sounds x4. no cvat. Back: No midline spinous or paraspinal tenderness. No step off deformity. Ext: Upper and lower extremities atraumatic, without tenderness, deformity, swelling or erythema. No peripheral edema, no calf tenderness bilaterally. Neuro: AOx3. Normal speech. Ambulating with steady gait. Psych: Appropriate mood and affect. Responds appropriately to questions. Course Course Course Narrative: 1818 -- CBC showing leukocytosis to 12.6 with left shift, downward trending since yesterday. Chemistry showing BUN of 34, creatinine 1.91. No acute electrolyte abnormalities requiring intervention. Random glucose 132. Liver function appears to be around patient's baseline. Initial troponin 10.8, will repeat for delta. BNP WNL. CHF unlikely. EKG showing sinus rhythm with PACs, rate of 97 beats per minute, QT 390, no acute ischemic changes or ST elevations. Urine with trace leukocyte esterase, 3-5 squamous epithelial cells, 1+ bacteria. Negative nitrites. Will await urine culture for treatment of UTI. Urine toxicology positive for oxycodone and marijuana, otherwise negative. Negative COVID, flu, RSV. Chest x-ray without infiltrate or consolidation to suggest pneumonia. > D-dimer elevated to 552. Age adjusted D-dimer cutoff 325. Concern for PE. Given elevated creatinine, will hold on CTA. VQ scan ordered. > dry ct a/p ordered for further evaluation into abdominal pain > she has received IVF, ativan, ed bronch treatment and solumedrol 1848 -- Received critical call from Radiology regarding CT A/P. Findings concerning for pneumoperitoneum secondary to bowel perforation > stat call out to on-call general surgeon, Dr. Zavala. Patient to be taken the OR for exploratory laparotomy. Nursing harvest crew supervisor contacted by charge master specialist. > discussed critical results with patient using electrician second. Patient is agreeable to surgery. Dr. Zavala at bedside to obtain written consent. > lactic and blood cultures ordered. patient noted to have PCN allergy. ceftriaxone + flagyl ordered. morphine ordered for pain control. 1927 -- received critical lactic of 3.4. sepsis protocol initiated. IVF running. Medications Administered Discontinued Medications Generic Name Dose Route Start Last Admin Trade Name Freq PRN Reason Stop Dose Admin Albuterol/Ipratropium 3 ml 04/11/25 16:22 04/11/25 16:33 Albuterol/Iprat 2.5/0.5mg 3 Ml Ampul.Neb INHALE 04/11/25 16:23 3 ml ONCE ONE Administration Sodium Chloride 1,000 mls @ 999 mls/hr 04/11/25 17:15 04/11/25 18:20 Ns IV 04/11/25 18:15 Infused .Q1H1M GOLDEN Infusion Cefepime HCl 2 gm in 50 mls @ 100 mls/hr 04/11/25 19:03 04/11/25 19:59 Maxipime IV 04/11/25 19:32 Infused ONCE ONE Infusion Lorazepam 0.5 mg 04/11/25 16:08 04/11/25 16:49 Lorazepam 0.5 Mg Tablet PO 04/11/25 16:09 0.5 mg ONCE ONE Administration Methylprednisolone Sodium Succinate 80 mg 04/11/25 18:16 04/11/25 18:22 Methylprednisolone Sod Succ 125 Mg Vial IVPUSH 04/11/25 18:17 80 mg ONCE ONE Administration Medical Decision Making Medical Decision Making MDM Narrative: 64-year-old female with pmhx significant for asthma, LONA, RA, fibromyalgia, hyperparathyroidism, hypothyroidism, HDL, type 2 diabetes, gout presents to the ED today via EMS for evaluation of acute onset chest pain that began at 1300 today while resting at home. Associated shortness of breath, nausea, and diffuse abdominal pain. On arrival, patient is hypertensive and tachypneic. Satting 90% on room air. Placed on 2 L nasal cannula with improvement to 99%. Abdomen is soft, nondistended, diffusely tender to palpation without rebound or guarding with active bowel sounds throughout. History without high risk features (not substernal, no exertional component, not relieved with rest).? Exam without evidence of volume overload. EKG without signs of active ischemia. Given the timing of pain to ED presentation, plan to send delta troponin to evaluate for NSTEMI. Differential diagnosis also includes anemia, electrolyte abnormality, costochondritis, msk pain, pneumonia, pleurisy, constipation, biliary colic, pancreatitis, bowel obstruction Presentation not consistent with pneumothorax, thoracic aortic dissection, cardiac effusion or tamponade, myocarditis, pericarditis. Plan: labs, troponin, EKG, CXR, viral swabs, CT a/p, pain control, reassessment Differential Diagnosis Differential Diagnoses: The differential diagnosis associated with the presentation includes as above. Admission/Observation Consideration of admission/observation: Escalation of care including admission/observation considered Patient admitted to surgical service for exploratory laparotomy secondary to pneumoperitoneum Consult Healthcare Provider Management of the patient was discussed with: Quality Assurance Monitor General surgery - dr. zavala Lab Data MDM Lab Attestation statement: I reviewed the patient's lab results. as above. 04/11/25 16:20 04/11/25 16:20 Labs: Lab Results 04/11/25 04/11/25 04/11/25 Range/Units 16:20 17:16 18:46 WBC 12.6 H (4.8-10.8) X10*3/uL RBC 5.03 (4.20-5.50) X10*6/uL Hgb 14.9 (12.0-16.0) g/dl Hct 43.8 (37.0-47.0) % MCV 87.1 (80.0-98.0) fL MCH 29.6 (27.0-33.0) pg MCHC 34.0 (31.0-35.0) g/dl RDW 14.7 (11.0-16.0) % Plt Count 335 (160-400) X10*3/uL MPV 9.7 (9.4-12.3) fL Immature Gran % (Auto) 0.3 (0.0-0.4) % Neut % (Auto) 85.4 H (45-73) % Lymph % (Auto) 9.3 L (20-40) % Cassia % (Auto) 4.6 (2-11) % Eos % (Auto) 0.2 (0-4) % Baso % (Auto) 0.2 (0-2) % Lymph # (Auto) 1.2 (1.2-4.9) X10*3/uL Cassia # (Auto) 0.6 (0.1-1.2) X10*3/uL Eos # (Auto) 0.0 (0.0-0.4) X10*3/uL Baso # (Auto) 0.0 (0.0-0.2) X10*3/uL Abs Immat Gran (auto) 0.04 H (0.00-0.03) X10*3/uL Absolute Neuts (auto) 10.8 H (2.0-8.3) x10*3/uL Absolute Nucleated RBC 0.000 (0.0-0.012) X10*3/uL Nucleated RBC % (auto) 0.0 (0.0-0.2) /100WBC D-Dimer High Sensitivty 552 NG/ML Sodium 138 (135-145) mmol/L Potassium 4.8 (3.3-5.1) mmol/L Chloride 101 (96-108) mmol/L Carbon Dioxide 21 L (22-29) mmol/L Anion Gap 21 H (12-20) BUN 34 H (9-16) mg/dL Creatinine 1.91 H (0.5-1.4) mg/dL Estim Creat Clear Calc 23.2 Estimated GFR 26 Random Glucose 132 H (60-115) mg/dL Lactic Acid (0.5-2.0) mmol/L Calcium 9.5 (8.4-10.2) mg/dL Magnesium 2.1 (1.6-2.6) mg/dL Total Bilirubin 0.7 (0.0-1.0) mg/dL AST 52 H (5-31) U/L ALT 18 (0-31) U/L Alkaline Phosphatase 46 (39-117) U/L Troponin I High Sens 10.8 14.5 (<3.5-17.0) ng/L B-Natriuretic Peptide 96 (<100) pg/mL Total Protein 8.4 H (6.5-8.0) g/dL Albumin 4.4 (3.5-5.0) g/dL Lipase 63 (8-78) U/L Urine Color Yellow Urine Appearance Clear Urine pH 7.5 (5.0-9.0) Ur Specific [place] 1.010 (1.005-1.025) Urine Protein Trace (Neg-Trace) mg/dL Urine Glucose (UA) Negative (Negative) mg/dL Urine Ketones Trace (Negative) mg/dL Urine Blood Negative (Negative) Urine Nitrite Negative (Negative) Ur Leukocyte Esterase Trace H (Negative) Urine RBC 0-2 (0-2) /HPF Urine WBC 0-5 (0-5) /HPF Ur Squamous Epith Cells 3-5 (0-2) /HPF Urine Bacteria 1+ (None Seen) Hyaline Casts 0-2 (0-2) /LPF Urine Opiates Screen Not Detected (Not Detect) Ur Buprenorphine Scrn Not Detected (Not Detect) ng/mL Ur Oxycodone Screen Positive H (Not Detect) ng/mL Urine Methadone Screen Not Detected (Not Detect) ng/mL Urine Fentanyl Screen Not Detected (Not Detect) Ur Barbiturates Screen Not Detected (Not Detect) Ur Phencyclidine Scrn Not Detected (Not Detect) Ur Amphetamines Screen Not Detected (Not Detect) U Benzodiazepines Scrn Not Detected (Not Detect) Urine Cocaine Screen Not Detected (Not Detect) U Marijuana (THC) Screen POSITIVE H (Not Detect) 04/11/25 Range/Units 19:03 WBC (4.8-10.8) X10*3/uL RBC (4.20-5.50) X10*6/uL Hgb (12.0-16.0) g/dl Hct (37.0-47.0) % MCV (80.0-98.0) fL MCH (27.0-33.0) pg MCHC (31.0-35.0) g/dl RDW (11.0-16.0) % Plt Count (160-400) X10*3/uL MPV (9.4-12.3) fL Immature Gran % (Auto) (0.0-0.4) % Neut % (Auto) (45-73) % Lymph % (Auto) (20-40) % Cassia % (Auto) (2-11) % Eos % (Auto) (0-4) % Baso % (Auto) (0-2) % Lymph # (Auto) (1.2-4.9) X10*3/uL Cassia # (Auto) (0.1-1.2) X10*3/uL Eos # (Auto) (0.0-0.4) X10*3/uL Baso # (Auto) (0.0-0.2) X10*3/uL Abs Immat Gran (auto) (0.00-0.03) X10*3/uL Absolute Neuts (auto) (2.0-8.3) x10*3/uL Absolute Nucleated RBC (0.0-0.012) X10*3/uL Nucleated RBC % (auto) (0.0-0.2) /100WBC D-Dimer High Sensitivty NG/ML Sodium (135-145) mmol/L Potassium (3.3-5.1) mmol/L Chloride (96-108) mmol/L Carbon Dioxide (22-29) mmol/L Anion Gap (12-20) BUN (9-16) mg/dL Creatinine (0.5-1.4) mg/dL Estim Creat Clear Calc Estimated GFR Random Glucose (60-115) mg/dL Lactic Acid 3.4 H* (0.5-2.0) mmol/L Calcium (8.4-10.2) mg/dL Magnesium (1.6-2.6) mg/dL Total Bilirubin (0.0-1.0) mg/dL AST (5-31) U/L ALT (0-31) U/L Alkaline Phosphatase (39-117) U/L Troponin I High Sens (<3.5-17.0) ng/L B-Natriuretic Peptide (<100) pg/mL Total Protein (6.5-8.0) g/dL Albumin (3.5-5.0) g/dL Lipase (8-78) U/L Urine Color Urine Appearance Urine pH (5.0-9.0) Ur Specific [place] (1.005-1.025) Urine Protein (Neg-Trace) mg/dL Urine Glucose (UA) (Negative) mg/dL Urine Ketones (Negative) mg/dL Urine Blood (Negative) Urine Nitrite (Negative) Ur Leukocyte Esterase (Negative) Urine RBC (0-2) /HPF Urine WBC (0-5) /HPF Ur Squamous Epith Cells (0-2) /HPF Urine Bacteria (None Seen) Hyaline Casts (0-2) /LPF Urine Opiates Screen (Not Detect) Ur Buprenorphine Scrn (Not Detect) ng/mL Ur Oxycodone Screen (Not Detect) ng/mL Urine Methadone Screen (Not Detect) ng/mL Urine Fentanyl Screen (Not Detect) Ur Barbiturates Screen (Not Detect) Ur Phencyclidine Scrn (Not Detect) Ur Amphetamines Screen (Not Detect) U Benzodiazepines Scrn (Not Detect) Urine Cocaine Screen (Not Detect) U Marijuana (THC) Screen (Not Detect) Independent Interpretation I performed an independent interpretation of an: EKG, Plain X-Ray and CT Scan Interpretation: EKG showing sinus rhythm with PACs, prolonged QT at 390, no acute ischemic changes or ST elevations Chest x-ray without infiltrate or consolidation CT a/p with pneumoperitoneum Radiology Impression Discussion of test interpretation with radiology: I have reviewed the radiologist's reading. Radiologist Impression: Date of Service: 04/11/25 Procedure(s): XR chest 2V Accession Number(s): [id number] cc: Belkis Goodwin~ CLINICAL HISTORY: sob 2 view chest x-ray Comparison: None Findings: The lungs are clear. Heart size is normal. No acute fracture. IMPRESSION: 1. No acute findings. This document has been electronically signed by: Олег Rios MD on 04/11/2025 16:43:19 Date of Service: 04/11/25 Procedure(s): CT abdomen pelvis wo IV con Accession Number(s): [id number] cc: Belkis Goodwin~ Report Number: [id number]: Total DLP = 458.00 mGy-cm ADDENDUMThis document has been electronically signed by: Thu Argueta MD on 04/11/2025 18:48:58 ADDENDUM: This report was discussed with AUGUSTUS Arrington on Apr 11, 2025 18:52:00 EDT. This document has been electronically signed by: Katharina Sommers on 04/11/2025 18:52:54 Addendum Dictated By: Thu Argueta MD Addendum Signed By: <Electronically signed by Thu Argueta MD in [place]> 04/11/251852 Addendum Cosigned By: DD/ /24/1848 TD/TT: 04/11/2510/24/1852 CLINICAL HISTORY: diffuse abd pain CT abdomen and pelvis without contrast Comparison: None Findings: Small hiatal hernia. Hysterectomy. No biliary duct dilatation. Atrophic right kidney. No hydronephrosis. No urolithiasis. Liver, spleen, pancreas, and adrenal glands are within normal limits. Moderate amount of stool in the right hemicolon. There is pneumoperitoneum centered around the splenic flexure. No bowel obstruction. Aortic atherosclerosis. No aneurysm. Pelvic contents unremarkable. Normal appendix. The bones are intact. IMPRESSION: Pneumoperitoneum centered around the splenic flexure, concerning for bowel perforation. Independent Historian Clinical information obtained from an independent historian. History obtained from or confirmed by: EMS External Record Review External record reviewed: Inpatient record Prescription Management I considered prescription management with: Pain Medication and Antibiotic Chronic Conditions Patient?s care impacted by: Hypertension and Other (asthma) Social Determinants Patient?s care significantly limited by Social Determinants of Health including: Other Social Determinant of Health Critical Care Time Critical Care Time Critical Care Time: Yes Total Critical Care Time: 45 Attestation: Critical care time in the amount of 45 minutes has been provided to the patient in terms of direct patient care, frequent reevaluation on IV morphine, consultation with General surgery, review and interpretation of medical data and results, and management of potentially life-threatening conditions. This is all outside of any medical procedures. Discharge Plan Discharge Clinical Impression: Pneumoperitoneum, Bowel perforation Patient Disposition: Admitted As Inpatient Print Language: Persian
[2025-04-11 16:25] LABS: MANUAL DIFF FLAG NO
[2025-04-11 16:31] LABS: Basophils Percent Auto 0.2 % (0-2); Eosinophils Percent Auto 0.2 % (0-4); Hematocrit 43.8 % (37.0-47.0); Hemoglobin 14.9 g/dl (12.0-16.0); Imm Gran Abs Auto 0.04 X10*3/uL (0.00-0.03); Imm Gran Pct Auto 0.3 % (0.0-0.4); Lymphocytes Absolute Auto 1.2 X10*3/uL (1.2-4.9); Lymphocytes Percent Auto 9.3 % (20-40); Mean Corpuscular Hemoglobin 29.6 pg (27.0-33.0); Mean Corpuscular Volume 87.1 fL (80.0-98.0); Mean Platelet Volume 9.7 fL (9.4-12.3); Monocytes Absolute Auto 0.6 X10*3/uL (0.1-1.2); Monocytes Percent Auto 4.6 % (2-11); Neutrophils Absolute Auto 10.8 x10*3/uL (2.0-8.3); Neutrophils Percent Auto 85.4 % (45-73); Platelet Count 335 X10*3/uL (160-400); Red Blood Count 5.03 X10*6/uL (4.20-5.50); Red Cell Distribution Width 14.7 % (11.0-16.0); White Blood Count 12.6 X10*3/uL (4.8-10.8)
[2025-04-11] MEDS: Albuterol/Iprat 2.5/0.5MG 3 ML AMPUL.NEB INHALE (16:33)
[2025-04-11 16:39] LABS: D Dimer High Sensitivity 552 NG/ML
[2025-04-11 16:48] LABS: Alanine Aminotransferase 18 U/L (0-31); Albumin Level 4.4 g/dL (3.5-5.0); Alkaline Phosphatase 46 U/L (39-117); Anion Gap 21 (12-20); Aspartate Amino Transferase 52 U/L (5-31); Bilirubin Total 0.7 mg/dL (0.0-1.0); Blood Urea Nitrogen 34 mg/dL (9-16); Calcium 9.5 mg/dL (8.4-10.2); Carbon Dioxide 21 mmol/L (22-29); Chloride 101 mmol/L (96-108); Creatinine Clr Calc Pharmacy 23.2; Estimated Glomerular Filt Rate 26; Glucose Random 132 mg/dL (60-115); Lipase 63 U/L (8-78); Magnesium 2.1 mg/dL (1.6-2.6); Potassium 4.8 mmol/L (3.3-5.1); Sodium 138 mmol/L (135-145); Total Protein 8.4 g/dL (6.5-8.0)
[2025-04-11] MEDS: LORazepam 0.5 MG TABLET PO (16:49)
[2025-04-11 16:53] LABS: B Type Natriuretic Peptide 96 pg/mL (<100)
[2025-04-11 16:54] LABS: Troponin-I High Sensitivity 10.8 ng/L (<3.5-17.0)
[2025-04-11] MEDS: 0.9 % Sodium Chloride 1,000 ML 999 ML IV (17:17)
[2025-04-11 17:22] LABS: Appearance Urine Clear; Color Urine Yellow; Glucose Urine UA Negative (Negative); Leukocyte Esterase Urine Trace (Negative); Nitrite Urine Negative (Negative); PH 7.5 (5.0-9.0); UMIC TRIGGER UACC YES; Urine Blood Negative (Negative); Urine Ketones Trace mg/dL (Negative); Urine Protein Trace mg/dL (Neg-Trace)
[2025-04-11 17:27] LABS: Bacteria Urine 1+ (None Seen); Hyaline Casts Urine 0-2 /LPF (0-2); RBC Urine 0-2 /HPF (0-2); WBC Urine 0-5 /HPF (0-5)
[2025-04-11 17:31] LABS: Amphetamine Screen Urine Not Detected (Not Detect); Barbiturates, Urine Not Detected (Not Detect); Benzodiazepines Screen Urine Not Detected (Not Detect); Buprenorphine Scr Not Detected (Not Detect); Cannabinoid Screen Urine POSITIVE (Not Detect); Cocaine Screen Urine Not Detected (Not Detect); Fentanyl, urine Not Detected (Not Detect); Methadone Screen, Urine Not Detected (Not Detect); Opiate Screen Urine Not Detected (Not Detect); Oxycodone Screen Urine Positive (Not Detect); Phencyclidine Screen Urine Not Detected (Not Detect)
[2025-04-11 19:09] LABS: Troponin-I High Sensitivity 14.5 ng/L (<3.5-17.0)
[2025-04-11] MEDS: cefEPime HCl/D5W 2 GM/50 ML PIGGYBACK IV (19:16)
[2025-04-11 19:28] LABS: Lactic Acid 3.4 mmol/L (0.5-2.0)
--- NOTE | 2025-04-11 19:33 | PC.NURSE ---
This writer producer assumed care of this Pt at 1900. Pt A&Ox3, reports 10 epigastric pain. Provider Belkis made aware, no new orders at this time. Dr. Cummings at bedside with hardware press operator. Report given to [facility] from OR.
--- NOTE | 2025-04-11 19:54 | PM.HPGS ---
History of Present Illness History of Present Illness Date of Service: 04/11/25 Chief complaint: chest pain and diff breathing since 1pm Narrative: 64-year-old female patient presenting with a 2 day history of abdominal pain located in the chest and epigastrium. She presented twice to the emergency department and after waiting a prolonged period of time left for being evaluated. She now presents with increased abdominal pain and chest pain, shortness of breath and tachycardia. On examination she was found to be short of breath with epigastric tenderness. She has a prior diagnosis of lupus, fibromyalgia, hypothyroidism, LONA, asthma, morbid obesity and gout on allopurinol. She has been on prednisone for prolonged period of time. Laboratories revealed an elevated WBC and CT abdomen and pelvis reveals free air in the left upper quadrant near the splenic flexure concerning for bowel perforation. She is admitted to the surgical service for further management of free intra-abdominal air. Review of Systems Constitutional: Constitutional: Reports body ache(s), Reports chills, Reports poor appetite and Reports weakness Cardiovascular: Cardiovascular: Reports palpitations, Reports dyspnea on exertion and Reports orthopnea Respiratory: Respiratory: Reports dyspnea on exertion Gastrointestinal: Gastrointestinal: Reports abdominal pain, Denies constipation, Reports heartburn and Reports nausea Neurologic: Reports weakness Endocrine: Endocrine: Reports palpitations PMFSH Past Medical History Medical History Undifferentiated connective tissue disease Lipoma On allopurinol therapy Gout Breast calcification, right Positive PHYLLIS (antinuclear antibody) Fibromyalgia History of primary hyperparathyroidism Osteopenia Dyslipidemia Hypothyroidism LONA on CPAP Bronchial asthma Epidermal inclusion cyst Morbid obesity Gout of right foot PHYLLIS positive Seronegative rheumatoid arthritis Diabetes type 2, uncontrolled Family History Family History Daughter History of breast cancer Father Cirrhosis Diabetes Arthritis Mother Arthritis Sister Diabetes Surgical History Surgical History History of surgery Hx of excision of mass History of kidney surgery S/P breast lumpectomy H/O parathyroidectomy Hx of cholecystectomy H/O tubal ligation Social History Social History Alcohol intake: never Patient Tobacco Use Status: Former Tobacco user Tobacco use type: Cigarette Smoked in Last 30 Days: No Use of substances other than those prescribed or required for medical reasons: No Substance Use Type: Marijuana Advance Directives: No Advance Directives Information Provided: Yes Do you have a plan to hurt others: No Plan Meds Allergies Allergy/AdvReac Type Severity Reaction Status Date / Time aspirin [ASA] Allergy Intermediate ITCHY, Verified 04/11/25 15:33 HOT, AND HEADACHE calcium Allergy Intermediate Vomiting Verified 04/11/25 15:33 Penicillins Allergy Intermediate RASH Verified 04/11/25 15:33 tofacitinib [Xeljanz] Allergy Intermediate chest Verified 04/11/25 15:33 pain, headaches sulfasalazine Allergy Unknown unknown Verified 04/11/25 15:33 Active Medications: Current Medications Metronidazole (Flagyl) 500 mg in 100 mls @ 100 mls/hr IV ONCE ONE Stop: 04/11/25 20:02 Sodium Chloride (Ns) 1,000 mls @ 999 mls/hr IV .Q1H1M GOLDEN Stop: 04/11/25 20:45 Home Medications ?Medication ?Instructions ?Recorded ?Confirmed ?Last Taken ?Type atorvastatin 20 mg tablet 20 mg PO DAILY 08/21/20 04/03/25 03/03/23 07:00 History hydrocodone 5 mg-acetaminophen 325 1 tab PO Q6H PRN Pain 08/21/20 04/03/25 01/01/22 History mg tablet omeprazole magnesium 20 mg 20 mg PO DAILY 08/21/20 04/03/25 03/03/23 07:00 History tablet,delayed release (Prilosec OTC) aripiprazole 10 mg tablet (Abilify) 10 mg PO .every 2 days 03/22/22 04/03/25 Unknown History artifi.tears(hypromellose)(PF) 0.3 1 drp ophthalmic (eye) Q4-6H PRN 03/22/22 04/03/25 Unknown History % eye drops Dry Eye(S) docusate sodium 100 mg capsule 100 mg PO BID 03/22/22 04/03/25 Unknown History (Colace) furosemide 40 mg tablet 40 mg PO .every 2 days 03/22/22 04/03/25 Unknown History irbesartan 75 mg tablet 75 mg PO DAILY 03/22/22 04/03/25 03/03/23 07:00 History levothyroxine 75 mcg capsule 75 mcg PO DAILY 05/04/03/25 03/03/23 07:00 History melatonin 10 mg capsule 10 mg PO BEDTIME PRN Insomnia 03/22/22 04/03/25 Unknown History naloxone 4 mg/actuation nasal 1 spray intranasal Q2M 03/22/22 04/03/25 Unknown History spray (Narcan) polyethylene glycol 3350 17 17 g PO DAILY 03/22/22 04/03/25 Unknown History gram/dose oral powder (Miralax) sennosides 8.6 mg capsule (senna) 8.6 mg PO DAILY 03/22/22 04/03/25 Unknown History zolpidem 5 mg tablet (Ambien) 5 mg PO BEDTIME PRN Insomnia 03/22/22 04/03/25 Unknown History metoprolol tartrate 25 mg tablet 25 mg PO BID 05/06/22 04/03/25 03/03/23 07:00 History blood sugar diagnostic (FreeStyle #10 ea 07/22/22 04/03/25 Unknown History Lite Strips) Physical Exam Vital Signs: Vital Signs: Last Vital Signs Temp 98.3 F 04/11/25 19:18 Pulse 99 04/11/25 19:18 Resp 26 H 04/11/25 19:18 BP 125/89 04/11/25 19:18 Pulse Ox 100 04/11/25 19:18 O2 Del Method Nasal Cannula 04/11/25 19:18 O2 Flow Rate 2 04/11/25 19:18 BMI result Body Mass Index 23.9 Const: General: no acute distress Nutritional Appearance: well nourished Orientation/consciousness: patient oriented x3 Limitations: language barrier HEENT: Head: Yes normocephalic and Yes atraumatic Resp: Other: Tachypnea Effort & Inspection: no audible wheezes and no cough GI: Palpation (GI): Soft to palpation, Tenderness to palpation present (GI) in the epigastrum and in the LUQ; not in the LLQ and not in the RLQ, Guarding due to palpation present (GI) and not rigid Percussion: Yes normal to percussion Auscultation: abnormal bowel sounds Rectal Exam - Female: deferred Abdomen image: 1. Area of marked tenderness Skin: Other: Warm, dry, no rash Neuro: General: patient oriented x3 Extrem: General: Yes normal to inspection Results Results Labs: Short CBC 04/11/25 Range/Units 16:20 WBC 12.6 H (4.8-10.8) X10*3/uL Hgb 14.9 (12.0-16.0) g/dl Hct 43.8 (37.0-47.0) % Plt Count 335 (160-400) X10*3/uL BMP 04/11/25 16:20 Sodium 138 Potassium 4.8 Chloride 101 Carbon Dioxide 21 L BUN 34 H Creatinine 1.91 H Calcium 9.5 Liver Function 04/11/25 Range/Units 16:20 Total Bilirubin 0.7 (0.0-1.0) mg/dL AST 52 H (5-31) U/L ALT 18 (0-31) U/L Alkaline Phosphatase 46 (39-117) U/L Albumin 4.4 (3.5-5.0) g/dL Urine 04/11/25 Range/Units 17:16 Urine Color Yellow Urine Appearance Clear Urine pH 7.5 (5.0-9.0) Ur Specific [place] 1.010 (1.005-1.025) Urine Protein Trace (Neg-Trace) mg/dL Urine Glucose (UA) Negative (Negative) mg/dL Abdomen CT scan report/results: image reviewed CT scan - pelvis: image reviewed Assessment and Plan (1) rn long term care systemic steroid user: Status: Acute (2) Pneumoperitoneum: Status: Acute Plan 64-year-old female patient with chronic steroid use presenting with complaints of chest pain, shortness of breath and epigastric pain found on workup to have free intraperitoneal air suggestive of a perforated viscus. Judging from her history and physical examination, the most likely cause would be a perforated duodenal or gastric ulcer. Other possibilities include perforated diverticulitis although she has no evidence of diverticular changes on CT and no pelvic air. Discussed the findings with the patient and her son in detail with the assistance of a nutrition club ambassador. I recommended exploratory laparotomy with possible repair of gastric ulcer or possible colostomy depending on the findings. After discussion of the procedure, risks, and alternatives, she consents to the surgery. She has been added onto the schedule as an emergency this evening. Quality Stroke Does the patient have a stroke diagnosis?: No VTE Prior VTE?: No VTE Risk Level:: Surgical - moderate VTE Device Contraindication: N/A - Device Ordered VTE Drug Contraindication: Treatment Not Indicated Procedures Date of Service Date of Service: 04/11/25
--- NOTE | 2025-04-11 20:01 | PC.NURSE ---
Addendum entered by Evelyn Delatorre 04/11/25 20:02: Pt transported to OR. Original Note: OR nurse at bedside, updated on fluids/pain medication ordered per DEC.
--- NOTE | 2025-04-11 20:05 | P.CONAN_ITS ---
HPI - Anesthesia Eval Consult details Narrative: Perforated bowel PMFSH Active Problems Active Problems: All Active Problems Bowel perforation (Acute) Pneumoperitoneum (Acute) Undifferentiated connective tissue disease (Acute) Lipoma (Acute) On allopurinol therapy (Acute) Gout (Acute) Disc degeneration, lumbar (Acute) Radiculopathy, lumbar region (Acute) oysterman systemic steroid user (Acute) Spondylosis of lumbar spine (Acute) Cervical muscle pain (Acute) Bronchial asthma (Acute) Breast calcification, right (Acute) Positive PHYLLIS (antinuclear antibody) (Acute) Fibromyalgia (Acute) History of primary hyperparathyroidism (Acute) Osteopenia (Acute) Dyslipidemia (Acute) Hypothyroidism (Acute) LONA on CPAP (Acute) Bronchial asthma (Acute) Morbid obesity (Acute) Seronegative rheumatoid arthritis (Acute) Diabetes type 2, uncontrolled (Acute) Past Medical History Medical History Undifferentiated connective tissue disease Lipoma On allopurinol therapy Gout Breast calcification, right Positive PHYLLIS (antinuclear antibody) Fibromyalgia History of primary hyperparathyroidism Osteopenia Dyslipidemia Hypothyroidism LONA on CPAP Bronchial asthma Epidermal inclusion cyst Morbid obesity Gout of right foot HPYLLIS positive Seronegative rheumatoid arthritis Diabetes type 2, uncontrolled Family History Family History Daughter History of breast cancer Father Cirrhosis Diabetes Arthritis Mother Arthritis Sister Diabetes Family history of problems with anesthesia: No Surgical History Surgical History History of surgery Hx of excision of mass History of kidney surgery S/P breast lumpectomy H/O parathyroidectomy Hx of cholecystectomy H/O tubal ligation History of Problems with Anesthesia: No Social History Social History Alcohol intake: never Patient Tobacco Use Status: Former Tobacco user Tobacco use type: Cigarette Smoked in Last 30 Days: No Use of substances other than those prescribed or required for medical reasons: No Substance Use Type: Marijuana Advance Directives: No Advance Directives Information Provided: Yes Do you have a plan to hurt others: No Plan Meds Allergies Allergy/AdvReac Type Severity Reaction Status Date / Time aspirin [ASA] Allergy Intermediate ITCHY, Verified 04/11/25 15:33 HOT, AND HEADACHE calcium Allergy Intermediate Vomiting Verified 04/11/25 15:33 Penicillins Allergy Intermediate RASH Verified 04/11/25 15:33 tofacitinib [Xeljanz] Allergy Intermediate chest Verified 04/11/25 15:33 pain, headaches sulfasalazine Allergy Unknown unknown Verified 04/11/25 15:33 Active Medications: Current Medications Sodium Chloride (Ns) 1,000 mls @ 999 mls/hr IV .Q1H1M GOLDEN Stop: 04/11/25 20:45 Lactated Ringer's (Lr) 1,000 mls @ 100 mls/hr IVCONT .Q10H [facility] Home Medications ?Medication ?Instructions ?Recorded ?Confirmed ?Last Taken ?Type atorvastatin 20 mg tablet 20 mg PO DAILY 08/21/20 04/03/25 03/03/23 07:00 Histor y hydrocodone 5 mg-acetaminophen 325 1 tab PO Q6H PRN Pain 08/21/20 04/03/25 01/01/22 History mg tablet omeprazole magnesium 20 mg 20 mg PO DAILY 08/21/20 04/03/25 03/03/23 07:00 History tablet,delayed release (Prilosec OTC) aripiprazole 10 mg tablet (Abilify) 10 mg PO .every 2 days 03/22/22 04/03/25 Unknown History artifi.tears(hypromellose)(PF) 0.3 1 drp ophthalmic (eye) Q4-6H PRN 03/22/22 04/03/25 Unknown History % eye drops Dry Eye(S) docusate sodium 100 mg capsule 100 mg PO BID 03/22/22 04/03/25 Unknown History (Colace) furosemide 40 mg tablet 40 mg PO .every 2 days 03/22/22 04/03/25 Unknown History irbesartan 75 mg tablet 75 mg PO DAILY 03/22/22 04/03/25 03/03/23 07:00 History levothyroxine 75 mcg capsule 75 mcg PO DAILY 03/22/22 04/03/25 03/03/23 07:00 History melatonin 10 mg capsule 10 mg PO BEDTIME PRN Insomnia 03/22/22 04/03/25 Unknown History naloxone 4 mg/actuation nasal 1 spray intranasal Q2M 03/22/22 04/03/25 Unknown History spray (Narcan) polyethylene glycol 3350 17 17 g PO DAILY 03/22/22 04/03/25 Unknown History gram/dose oral powder (Miralax) sennosides 8.6 mg capsule (senna) 8.6 mg PO DAILY 03/22/22 04/03/25 Unknown History zolpidem 5 mg tablet (Ambien) 5 mg PO BEDTIME PRN Insomnia 03/22/22 04/03/25 Unknown History metoprolol tartrate 25 mg tablet 25 mg PO BID 05/06/22 04/03/25 03/03/23 07:00 History blood sugar diagnostic (FreeStyle #10 ea 07/22/22 04/03/25 Unknown History Lite Strips) Exam Height,Weight and Vital Signs: Height 5 ft 2 in Weight 59.3 kg Last Vital Signs Temp 98.3 F 04/11/25 19:18 Pulse 99 04/11/25 19:18 Resp 26 H 04/11/25 19:18 BP 125/89 04/11/25 19:18 Pulse Ox 100 04/11/25 19:18 O2 Del Method Nasal Cannula 04/11/25 19:18 O2 Flow Rate 2 04/11/25 19:18 Pertinent Lab Results Pertinent Lab Results: Laboratory Tests 04/11/25 04/11/25 04/11/25 16:20 17:16 18:46 WBC 12.6 H RBC 5.03 Hgb 14.9 Hct 43.8 MCV 87.1 MCH 29.6 MCHC 34.0 RDW 14.7 Plt Count 335 MPV 9.7 Immature Gran % (Auto) 0.3 Neut % (Auto) 85.4 H Lymph % (Auto) 9.3 L [place] % (Auto) 4.6 Eos % (Auto) 0.2 Baso % (Auto) 0.2 Lymph # (Auto) 1.2 [place] # (Auto) 0.6 Eos # (Auto) 0.0 Baso # (Auto) 0.0 Abs Immat Gran (auto) 0.04 H Absolute Neuts (auto) 10.8 H Absolute Nucleated RBC 0.000 Nucleated RBC % (auto) 0.0 D-Dimer High Sensitivty 552 Sodium 138 Potassium 4.8 Chloride 101 Carbon Dioxide 21 L Anion Gap 21 H BUN 34 H Creatinine 1.91 H Estim Creat Clear Calc 23.2 Estimated GFR 26 Random Glucose 132 H Lactic Acid Calcium 9.5 Magnesium 2.1 Total Bilirubin 0.7 AST 52 H ALT 18 Alkaline Phosphatase 46 Troponin I High Sens 10.8 14.5 B-Natriuretic Peptide 96 Total Protein 8.4 H Albumin 4.4 Lipase 63 Urine Color Yellow Urine Appearance Clear Urine pH 7.5 Ur Specific [place] 1.010 Urine Protein Trace Urine Glucose (UA) Negative Urine Ketones Trace Urine Blood Negative Urine Nitrite Negative Ur Leukocyte Esterase Trace H Urine RBC 0-2 Urine WBC 0-5 Ur Squamous Epith Cells 3-5 Urine Bacteria 1+ Hyaline Casts 0-2 Urine Opiates Screen Not Detected Ur Buprenorphine Scrn Not Detected Ur Oxycodone Screen Positive H Urine Methadone Screen Not Detected Urine Fentanyl Screen Not Detected Ur Barbiturates Screen Not Detected Ur Phencyclidine Scrn Not Detected Ur Amphetamines Screen Not Detected U Benzodiazepines Scrn Not Detected Urine Cocaine Screen Not Detected U Marijuana (THC) Screen POSITIVE H 04/11/25 19:03 WBC RBC Hgb Hct MCV MCH MCHC RDW Plt Count MPV Immature Gran % (Auto) Neut % (Auto) Lymph % (Auto) [place] % (Auto) Eos % (Auto) Baso % (Auto) Lymph # (Auto) [place] # (Auto) Eos # (Auto) Baso # (Auto) Abs Immat Gran (auto) Absolute Neuts (auto) Absolute Nucleated RBC Nucleated RBC % (auto) D-Dimer High Sensitivty Sodium Potassium Chloride Carbon Dioxide Anion Gap BUN Creatinine Estim Creat Clear Calc Estimated GFR Random Glucose Lactic Acid 3.4 H* Calcium Magnesium Total Bilirubin AST ALT Alkaline Phosphatase Troponin I High Sens B-Natriuretic Peptide Total Protein Albumin Lipase Urine Color Urine Appearance Urine pH Ur Specific [place] Urine Protein Urine Glucose (UA) Urine Ketones Urine Blood Urine Nitrite Ur Leukocyte Esterase Urine RBC Urine WBC Ur Squamous Epith Cells Urine Bacteria Hyaline Casts Urine Opiates Screen Ur Buprenorphine Scrn Ur Oxycodone Screen Urine Methadone Screen Urine Fentanyl Screen Ur Barbiturates Screen Ur Phencyclidine Scrn Ur Amphetamines Screen U Benzodiazepines Scrn Urine Cocaine Screen U Marijuana (THC) Screen Airway Denture: Upper and Lower Assessment and Plan Assessment Anesthesia Assessment: Anesthesia Plan Discussed and Chart Reviewed Final Anesthetic Review Family History of Problems with Anesthesia: No History of Problems with Anesthesia: No NPO: Yes ASA Class: III and Emergency Final Preanesthetic Review: No Changes in Pt Med Stat, Meds/Allgs Chart Reviewed, Consent Obtained/Reviewed and Anes Risks/Benef Reviewed Patient Risk: High Procedure Risk: Intermediate Anesthetic Plan Anesthetic Plan: GA Disposition: Standard PACU
[2025-04-11] MEDS: HYDROmorphone HCl 1 MG/ML SYRINGE IVPUSH (20:20)
[2025-04-11] MEDS: HYDROmorphone HCl 0.5 MG/0.5 ML SYRINGE IVPUSH ×2 (20:25→23:40)
[2025-04-11] MEDS: metroNIDAZOLE/NS 500 MG/100 ML PIGGYBACK 100 MG IV (20:30)
[2025-04-11 21:08] LABS: Reflex Lactate? Lactic Acid Added
--- NOTE | 2025-04-11 22:02 | W.PM.OPN ---
Operative Note Operative Note Date of Service: 04/11/25 Narrative: Preoperative diagnosis: Perforated viscus Postoperative diagnosis: Perforated gastric ulcer with hematoma Procedure: Exploratory laparotomy Surgeon: Hector Kemp MD Financial Institution Branch Manager: None Anesthesia: General endotracheal Indications for procedure: 64-year-old female patient presenting with a 2 day history of severe abdominal pain extending into the chest with shortness of breath. Workup in the emergency department revealed an elevated WBC. Free intraperitoneal air was identified suggestive of a perforated viscus possibly perforation at the splenic flexure. Patient has a history of prolonged steroid use Operative findings: No evidence of colon perforation. No intraperitoneal feculent or gastric/biliary contents. Lesser curvature of the stomach with significant ecchymosis suggestive of an underlying hematoma possibly microperforation which subsequently sealed; no evidence of ongoing leakage at the time of exploration. No diverticulitis, no colon perforation. Specimen: None Estimated blood loss: Less than 2 mL Complications: None Procedure details: Patient was brought to the OR and placed in a supine position. An upper midline incision was made with a scalpel and carried out through subcutaneous tissue through linea alba into the peritoneum. The abdomen was then entered and explored. A Bookwalter retractor was placed. No intraperitoneal fluid was identified as noted above. Examination of the entire colon revealed no evidence of perforation. Examination of the stomach and duodenum revealed an area of ecchymosis in the lesser curvature suggestive of an underlying ulcer although no perforation could be identified. The lesser sac was entered in the posterior surface of the stomach examined thoroughly. Duodenum was also examined carefully with no evidence of ulceration or inflammation. With the only finding being the ecchymotic area in the lesser curvature, this area was examined closely but no perforation which would require biopsy or repair was identified. The abdomen was thoroughly irrigated with saline solution and suctioned dry. Fascia was closed using a running 0 looped PDS suture. Subcutaneous tissue and dermis were reapproximated using interrupted 3-0 Polysorb sutures. Skin was closed using skin amrik. Sterile dressings were then applied. The patient tolerated the procedure well. Sponge, instrument, and needle counts reported as correct. The patient was transferred to PACU in stable condition.
[2025-04-11] MEDS: Piperacillin Sodium/Tazobactam 3.375 GM in 0.9 % Sodium Chloride 50 ML IV (22:26)
[2025-04-11] MEDS: Lactated Ringers 1,000 ML 100 ML IVCONT (22:30)
[2025-04-11] MEDS: Pantoprazole Sodium 40 MG/10 ML VIAL IVPUSH (23:33)
--- NOTE | 2025-04-12 02:15 | P.CONHOSP_ITS ---
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 Kemp. Patient underwent open abdominal procedure and no perforation was noted but a gastric ulcer with possible perforation was present. The ulcer may have had possible microperforation but hematoma present which sealed the affected area. At the time of surgery there was no additional leakage. The patient tolerated the procedure well. Patient denies history of GI bleed. Patient able to state past medical history with reliability using sales planning manager. Patient states her family supports her with her medical needs. Patient's son supports her with her medications. Patient did note that since starting Ozempic approximately 2 years prior with the adjustments in dose patient has had persistent vomiting intermittently. Patient states her son will be speaking to her PCP regarding this medication and if there is an alternative medication available. Hemoglobin A1c has been ordered. Patient states her PCP manages her diabetes at this time. In addition patient follows with a patient escort and has had 1 for the last 15 years. Patient has had Holter monitors in the past for fast heart rates. Patient denies history of atrial fibrillation. Patient is not currently on blood thinners. Patient currently denies any chest pain or shortness of breath at rest or with exertion. Patient denies history of heart failure. Patient does follow with a psychological aide as she states due to her lupus her renal function has declined. Patient's medications in the past have been adjusted due to her renal failure. Patient also states that she had her parathyroid removed due to hyperparathyroidism. Patient also states that she has had 2 benign masses removed from the right breast. Patient continues to have mammograms for monitoring. Patient also has history of asthma and uses inhalers at home. Patient denies any recent exacerbations.. Patient does have rheumatoid arthritis and fibromyalgia. Patient deals with chronic pain on a daily basis. Patient also reports chronic low back pain. Patient has had some vascular issues and has had surgery on the left leg and will have surgery on the right leg in the future. Patient also reports chronic constipation. This may correlate with the Ozempic. Patient uses prune juice effectively. And again to reiterate patient does have persistent vomiting while being on Ozempic. Patient denies history of bowel obstruction, or ileus. Review of Systems 2 Review of Systems: Patient is reporting acute abdominal pain secondary to surgery. Patient states she is thirsty and currently can have ice chips. Patient is tolerating these without nausea or vomiting. Patient denies any chest pain, shortness of breath at rest or wheezing. Patient denies any chronic issues with swallowing. Patient denies any headache or visual changes. Yes all other systems are reviewed and are negative [facility] Medical History Undifferentiated connective tissue disease Lipoma On allopurinol therapy Gout Breast calcification, right Positive PHYLLIS (antinuclear antibody) Fibromyalgia History of primary hyperparathyroidism Osteopenia Dyslipidemia Hypothyroidism LONA on CPAP Bronchial asthma Epidermal inclusion cyst Morbid obesity Gout of right foot PHYLLIS positive Seronegative rheumatoid arthritis Diabetes type 2, uncontrolled Functional capacity: independent ambulation Family History Daughter History of breast cancer Father Cirrhosis Diabetes Arthritis Mother Arthritis Sister Diabetes Surgical History History of surgery Hx of excision of mass History of kidney surgery S/P breast lumpectomy H/O parathyroidectomy Hx of cholecystectomy H/O tubal ligation Social History (Updated 04/12/25 @ 02:28 by PEDRO Lopez) Household Members: Children Housing: Apartment Alcohol intake: never Patient Tobacco Use Status: Former Tobacco user Tobacco use type: Cigarette Smoked in Last 30 Days: No Use of substances other than those prescribed or required for medical reasons: Yes Substance Use Type: Marijuana Currently Displaying Signs/Symptoms of Drug Intoxication Withdrawal: No Have you been hit, kicked, punched, or otherwise hurt by someone within the past year? If so, by whom?: No Do you feel safe in your current relationship?: Yes Is there a partner from a previous relationship who is making you feel unsafe now?: No Are you made to feel afraid or neglected: No Advance Directives: No Advance Directives Information Provided: Yes Do you have a plan to hurt others: No Plan Recently lost weight without trying: No Nutrition Risks: No Nutritional Risk Patient : No : No Poor oral hygiene: No Ebola Risk: Travel/Contact With Anyone From Affected Area/s: No Has Patient Experienced Ebola Symptoms: No Meds Allergies Allergy/AdvReac Type Severity Reaction Status Date / Time aspirin [ASA] Allergy Intermediate ITCHY, Verified 04/11/25 15:33 HOT, AND HEADACHE calcium Allergy Intermediate Vomiting Verified 04/11/25 15:33 Penicillins Allergy Intermediate RASH Verified 04/11/25 15:33 tofacitinib [Xeljanz] Allergy Intermediate chest Verified 04/11/25 15:33 pain, headaches sulfasalazine Allergy Unknown unknown Verified 04/11/25 15:33 Active Medications: Current Medications Hydromorphone HCl (Hydromorphone Hcl 0.5 Mg/0.5 Ml Syringe) 0.5 mg IVPUSH Q3H PRN; Protocol PRN Reason: Pain, Severe (Pain Scale 7-10) Last Admin: 04/11/25 23:40 Dose: 0.5 mg Lactated Ringer's (Lr) 1,000 mls @ 100 mls/hr IVCONT .Q10H [facility] Last Admin: 04/11/25 23:23 Dose: Not Given Piperacillin Sod/Tazobactam (Sod 3.375 gm/ Sodium Chloride) 50 mls @ 100 mls/hr IV Q6H [facility] Last Infusion: 04/11/25 23:25 Dose: Infused Acetaminophen (Ofirmev) 1,000 mg in 100 mls @ 400 mls/hr IV Q6H PRN PRN Reason: Pain, Mild (Pain Scale 1-3) Ondansetron HCl (Ondansetron Hcl 4 Mg/2 Ml Vial) 4 mg IVPUSH QID PRN PRN Reason: Nausea Pantoprazole Sodium (Pantoprazole Sodium 40 Mg/10 Ml Vial) 40 mg IVPUSH BID@0630,1630 [facility] Last Admin: 04/11/25 23:33 Dose: 40 mg Sodium Chloride (0.9 % Sodium Chloride Flush 3 Ml Syringe) 3 ml IVFLUSH QSHIFT [facility] Last Admin: 04/12/25 00:05 Dose: Not Given Zolpidem Tartrate (Zolpidem Tartrate 5 Mg Tablet) 5 mg PO BEDTIME PRN PRN Reason: Insomnia Home Medications ?Medication ?Instructions ?Recorded ?Confirmed ?Last Taken ?Type atorvastatin 20 mg tablet 20 mg PO DAILY 08/21/20 04/03/25 03/03/23 07:00 History hydrocodone 5 mg-acetaminophen 325 1 tab PO Q6H PRN Pain 08/21/20 04/03/25 01/01/22 History mg tablet omeprazole magnesium 20 mg 20 mg PO DAILY 08/21/20 04/03/25 03/03/23 07:00 History tablet,delayed release (Prilosec OTC) aripiprazole 10 mg tablet (Abilify) 10 mg PO .every 2 days 03/22/22 04/03/25 Unknown History artifi.tears(hypromellose)(PF) 0.3 1 drp ophthalmic (eye) Q4-6H PRN 03/22/22 04/03/25 Unknown History % eye drops Dry Eye(S) docusate sodium 100 mg capsule 100 mg PO BID 03/22/22 04/03/25 Unknown History (Colace) furosemide 40 mg tablet 40 mg PO .every 2 days 03/22/22 04/03/25 Unknown History irbesartan 75 mg tablet 75 mg PO DAILY 03/22/22 04/03/25 03/03/23 07:00 History levothyroxine 75 mcg capsule 75 mcg PO DAILY 03/22/22 04/03/25 03/03/23 07:00 History melatonin 10 mg capsule 10 mg PO BEDTIME PRN Insomnia 03/22/22 04/03/25 Unknown History naloxone 4 mg/actuation nasal 1 spray intranasal Q2M 03/22/22 04/03/25 Unknown History spray (Narcan) polyethylene glycol 3350 17 17 g PO DAILY 03/22/22 04/03/25 Unknown History gram/dose oral powder (Miralax) sennosides 8.6 mg capsule (senna) 8.6 mg PO DAILY 03/22/22 04/03/25 Unknown History zolpidem 5 mg tablet (Ambien) 5 mg PO BEDTIME PRN Insomnia 03/22/22 04/03/25 Unknown History metoprolol tartrate 25 mg tablet 25 mg PO BID 05/06/22 04/03/25 03/03/23 07:00 History blood sugar diagnostic (FreeStyle #10 ea 07/22/22 04/03/25 Unknown History Lite Strips) Physical Exam 2 Vital Signs and Narrative: Vital Signs: Last Vital Signs Temp 99.4 F 04/11/25 23:37 Pulse 94 04/11/25 23:37 Resp 20 04/11/25 23:37 BP 121/69 04/11/25 23:37 Pulse Ox 98 04/11/25 23:37 O2 Del Method Room Air 04/11/25 23:37 O2 Flow Rate 4 04/11/25 22:19 BMI result Body Mass Index 23.9 Alert and orientated X3, able to give good history. 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 used Neuro: CN II-X11 intact, no deficits, visual acuity intact EYES: PERRLA, EOM intact ENT: hearing intact, no issues with swallowing, uvula midline, lips moist, nares patent no epistaxis Cardiac: S1 S2 RRR, no murmur, no JVD, no edema in Lower ext Pulmonary: lungs clear to auscultation B Abdominal: BS hypoactive, mid abdominal incision covered with dry clean dressing MSK: strength 5/5 upper and lower extremities : no CVA tenderness no bladder distension Extremities: no edema in lower extremities, PT and DP pulses palpable +2 Psych: mood stable, judgement and insight good Skin: Incision noted mid abdominal area, covered with clean dry dressing Results Labs 04/11/25 16:20 04/11/25 16:20 Labs: Laboratory Results - last 24 hr 04/11/25 04/11/25 04/11/25 16:20 17:16 18:46 MCV 87.1 MCH 29.6 MCHC 34.0 RDW 14.7 Plt Count 335 MPV 9.7 Immature Gran % (Auto) 0.3 Neut % (Auto) 85.4 H Lymph % (Auto) 9.3 L Ward % (Auto) 4.6 Eos % (Auto) 0.2 Baso % (Auto) 0.2 Lymph # (Auto) 1.2 Ward # (Auto) 0.6 Eos # (Auto) 0.0 Baso # (Auto) 0.0 Abs Immat Gran (auto) 0.04 H Absolute Neuts (auto) 10.8 H Absolute Nucleated RBC 0.000 Nucleated RBC % (auto) 0.0 D-Dimer High Sensitivty 552 Anion Gap 21 H Estim Creat Clear Calc 23.2 Estimated GFR 26 Random Glucose 132 H Lactic Acid Calcium 9.5 Magnesium 2.1 Total Bilirubin 0.7 AST 52 H ALT 18 Alkaline Phosphatase 46 Troponin I High Sens 10.8 14.5 B-Natriuretic Peptide 96 Total Protein 8.4 H Albumin 4.4 Lipase 63 Urine Color Yellow Urine Appearance Clear Urine pH 7.5 Ur Specific [place] 1.010 Urine Protein Trace Urine Glucose (UA) Negative Urine Ketones Trace Urine Blood Negative Urine Nitrite Negative Ur Leukocyte Esterase Trace H Urine RBC 0-2 Urine WBC 0-5 Ur Squamous Epith Cells 3-5 Urine Bacteria 1+ Hyaline Casts 0-2 Urine Opiates Screen Not Detected Ur Buprenorphine Scrn Not Detected Ur Oxycodone Screen Positive H Urine Methadone Screen Not Detected Urine Fentanyl Screen Not Detected Ur Barbiturates Screen Not Detected Ur Phencyclidine Scrn Not Detected Ur Amphetamines Screen Not Detected U Benzodiazepines Scrn Not Detected Urine Cocaine Screen Not Detected U Marijuana (THC) Screen POSITIVE H 04/11/25 19:03 MCV MCH MCHC RDW Plt Count MPV Immature Gran % (Auto) Neut % (Auto) Lymph % (Auto) Ward % (Auto) Eos % (Auto) Baso % (Auto) Lymph # (Auto) Ward # (Auto) Eos # (Auto) Baso # (Auto) Abs Immat Gran (auto) Absolute Neuts (auto) Absolute Nucleated RBC Nucleated RBC % (auto) D-Dimer High Sensitivty Anion Gap Estim Creat Clear Calc Estimated GFR Random Glucose Lactic Acid 3.4 H* Calcium Magnesium Total Bilirubin AST ALT Alkaline Phosphatase Troponin I High Sens B-Natriuretic Peptide Total Protein Albumin Lipase Urine Color Urine Appearance Urine pH Ur Specific [place] Urine Protein Urine Glucose (UA) Urine Ketones Urine Blood Urine Nitrite Ur Leukocyte Esterase Urine RBC Urine WBC Ur Squamous Epith Cells Urine Bacteria Hyaline Casts Urine Opiates Screen Ur Buprenorphine Scrn Ur Oxycodone Screen Urine Methadone Screen Urine Fentanyl Screen Ur Barbiturates Screen Ur Phencyclidine Scrn Ur Amphetamines Screen U Benzodiazepines Scrn Urine Cocaine Screen U Marijuana (THC) Screen ECG Attestation: I personally reviewed and interpreted this ECG as follows: (Sinus rhythm with PACs, left axis deviation and prolonged QT 495) Prior ECG tracings: available for review Imaging Radiologist's Impressions: ABD CT Findings: Small hiatal hernia. Hysterectomy. No biliary duct dilatation. Atrophic right kidney. No hydronephrosis. No urolithiasis. Liver, spleen, pancreas, and adrenal glands are within normal limits. Moderate amount of stool in the right hemicolon. There is pneumoperitoneum centered around the splenic flexure. No bowel obstruction. Aortic atherosclerosis. No aneurysm. Pelvic contents unremarkable. Normal appendix. The bones are intact. IMPRESSION: Pneumoperitoneum centered around the splenic flexure, concerning for bowel perforation. CXR Findings: The lungs are clear. Heart size is normal. No acute fracture. IMPRESSION: 1. No acute findings. 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 Kemp for emergent intervention surgically for suspected pneumoperitoneum with possible perforation of the viscus. Patient was found to have no perforation but did have a gastric ulcer sealed with a hematoma with microperforation possible. Patient was requested to be seen by hospitalist for medical management. Metabolic acidosis with elevated AG preoperatively -Patient did receive IV fluids preoperatively -BMP scheduled for the morning -No indication for bicarb at this time -Nephrology consulted DONI on CKD -Creatinine clearance 23.2 with a GFR of 26 preoperatively -Patient did receive IV fluids preoperatively as well -BNP for a.m. is pending -Patient does follow with a psychological aide -Urinalysis negative for proteinuria -Consulting Nephrology for review -Avoid hypotension and nephrotoxic medications including NSAIDs -Holding ARB (med rec pending) Gastric ulcer -Acute finding, GI consultation ordered -Unclear if patient will require upper EGD this admission -Patient may not be able to take GLP ones any longer as the delayed gastric emptying can promote increased exposure to stomach acid -Patient did report that she is having persistent intermittent vomiting while being on Ozempic, son is going to be talking to with the PCP about alternative treatment -Protonix 40 b.i.d. ordered IV -Patient will require oral PPI/H2 cinthia -Patient will need to follow up with GI as an outpatient -H/H stable, no indication for transfusion pre operatively, follow AM labs Insulin-dependent diabetes type 2 on Ozempic -Sliding scale insulin for NPO status ordered -Diabetic diet once permitted by surgeon -Patient may not be able to continue GLP ones based on gastric ulcer diagnosis, as above GI consultation requested for further review and recommendations Hypertension -Blood pressure currently controlled -Med rec pending, continue metoprolol and Arb once completed and blood pressure remained stable Asthma -Duo nebs p.r.n. -Patient uses rescue inhaler only at home -Patient does not use oxygen at home -Patient is a nonsmoker Lupus -Pt follows with Nephrology for monitoring noting impact on patient's overall renal function -Patient may need to hold her hydroxychloroquine postoperatively. This will need to be reviewed with surgery. Chronic pain secondary to rheumatoid arthritis and fibromyalgia -Pt is on chronic steroid therapy, stress steroid dosing with methylprednisolone currently ordered postoperatively, taper to oral prednisone -Patient currently receiving IV narcotic medication for abdominal surgery, patient uses Lortab in the outpatient setting -Continue Flexeril as tolerated postoperatively. Long-term steroid use -Patient has been provided stress steroid dosing with methylprednisolone Hypothyroidism -TSH with reflex to free T4 ordered for the a.m. -await med rec completion but patient is normally on levothyroxine 75 mcg daily -Low salt diet once able to tolerate po intake Hyperlipidemia -Continue atorvastatin and psyllium once med rec completed Gout -Uric acid level ordered for the a.m. -Continue allopurinol once med rec completed LONA on CPAP at home -Patient deferred CPAP overnight, if patient remains hospitalized can check with family if machine can be brought in versus using in-house CPAP Constipation -Adding MiraLax and senna once patient is able to tolerate p.o. intake -Pt states prune juice is very effective Hospitalist group will continue to follow to review a.m. labs and recommendations from GI consultation. Thank you so much for this consultation.
[2025-04-12] MEDS: HYDROmorphone HCl 0.5 MG/0.5 ML SYRINGE IVPUSH ×6 (02:36→23:22)
[2025-04-12] MEDS: Piperacillin Sodium/Tazobactam 3.375 GM in 0.9 % Sodium Chloride 50 ML IV ×4 (02:39→20:17)
[2025-04-12 03:04] VITALS: BP 122/75; PULSE 91; RESP 20; TEMP 36.8; O2SAT 98
[2025-04-12 03:06] LABS: Glucose, Whole Blood 123 mg/dL (60-115)
[2025-04-12 05:19] LABS: Basophils Percent Auto 0.1 % (0-2); Hematocrit 35.2 % (37.0-47.0); Hemoglobin 11.9 g/dl (12.0-16.0); Imm Gran Abs Auto 0.09 X10*3/uL (0.00-0.03); Imm Gran Pct Auto 0.6 % (0.0-0.4); Lymphocytes Absolute Auto 0.6 X10*3/uL (1.2-4.9); MANUAL DIFF FLAG SCAN; Mean Corpuscular HGB Conc 33.8 g/dl (31.0-35.0); Mean Corpuscular Hemoglobin 29.8 pg (27.0-33.0); Mean Corpuscular Volume 88.2 fL (80.0-98.0); Mean Platelet Volume 9.5 fL (9.4-12.3); Monocytes Absolute Auto 0.7 X10*3/uL (0.1-1.2); Monocytes Percent Auto 4.7 % (2-11); Neutrophils Absolute Auto 13.8 x10*3/uL (2.0-8.3); Neutrophils Percent Auto 90.6 % (45-73); Platelet Count 232 X10*3/uL (160-400); Red Blood Count 3.99 X10*6/uL (4.20-5.50); Red Cell Distribution Width 14.8 % (11.0-16.0); SCAN SMEAR FLAG 1; White Blood Count 15.2 X10*3/uL (4.8-10.8)
[2025-04-12 05:30] LABS: Lactic Acid 1.1 mmol/L (0.5-2.0)
[2025-04-12] MEDS: Pantoprazole Sodium 40 MG/10 ML VIAL IVPUSH ×2 (05:38→17:15)
[2025-04-12 05:44] LABS: Alanine Aminotransferase 16 U/L (0-31); Albumin Level 3.5 g/dL (3.5-5.0); Alkaline Phosphatase 33 U/L (39-117); Anion Gap 13 (12-20); Aspartate Amino Transferase 31 U/L (5-31); Bilirubin Total 0.3 mg/dL (0.0-1.0); Blood Urea Nitrogen 29 mg/dL (9-16); Calcium 7.9 mg/dL (8.4-10.2); Carbon Dioxide 24 mmol/L (22-29); Chloride 108 mmol/L (96-108); Creatinine Clr Calc Pharmacy 31.4; Estimated Glomerular Filt Rate 31; Glucose Random 128 mg/dL (60-115); Sodium 141 mmol/L (135-145); Total Protein 6.1 g/dL (6.5-8.0)
[2025-04-12 05:45] LABS: SLIDE REVIEW VERIFIED
[2025-04-12 06:00] LABS: TSH reflex Free T4 0.58 uIU/mL (0.32-4.0)
[2025-04-12 07:08] LABS: Estimated Average Glucose 120 mg/dL; Hemoglobin A1C 124.3398 umol/L; Hemoglobin A1c % 5.8 % (<6.0)
[2025-04-12] MEDS: Lactated Ringers 1,000 ML 100 ML IVCONT ×2 (07:20→17:16)
[2025-04-12 07:35] VITALS: BP 146/64; PULSE 85; RESP 16; TEMP 37; O2SAT 99
[2025-04-12 07:42] LABS: Glucose, Whole Blood 101 mg/dL (60-115)
[2025-04-12] MEDS: methylPREDNISolone Sod Succ 40 MG/ML VIAL 10 MG IVPUSH (08:02)
--- NOTE | 2025-04-12 08:25 | P.PNGS_ITS ---
Subjective Subjective Date of Service: 04/12/25 Interval history: POD 1 following exploratory laparotomy. Overall she feels improved with some incisional pain. Physical Exam 2 Vital Signs: Vital Signs: Last Vital Signs Temp 98.6 F 04/12/25 07:35 Pulse 85 04/12/25 07:35 Resp 16 04/12/25 07:35 BP 146/64 H 04/12/25 07:35 Pulse Ox 99 04/12/25 07:35 O2 Del Method Room Air 04/12/25 07:35 O2 Flow Rate 2 04/12/25 03:04 BMI result Body Mass Index 23.9 Const: General: no acute distress Nutritional Appearance: well nourished Orientation/consciousness: patient oriented x3 Resp: Effort & Inspection: normal respiratory effort, no audible wheezes, no cough and no respiratory distress GI: Other: Soft and nondistended, dressings clean and intact Abdomen image: 1. Incision upper midline Skin: Other: Warm, dry, no rash Neuro: General: patient oriented x3 Objective Data Active Medications Albuterol/Ipratropium (Albuterol/Iprat 2.5/0.5mg 3 Ml Ampul.Neb) 3 ml INHALE RQ4H WHILE AWAKE PRN PRN Reason: Shortness of Breath/Wheezing Dextrose (Dextrose 50 % 25 Gm/50 Ml Syringe) 25 gm IVPUSH Q15M PRN; Protocol PRN Reason: per Hypoglycemia Standing Ord. Glucose (Glucose Gel 15 Gm Gel..Gram.) 15 gm PO Q15M PRN; Protocol PRN Reason: per Hypoglycemia Standing Ord. Hydromorphone HCl (Hydromorphone Hcl 0.5 Mg/0.5 Ml Syringe) 0.5 mg IVPUSH Q3H PRN; Protocol PRN Reason: Pain, Severe (Pain Scale 7-10) Last Admin: 04/12/25 05:38 Dose: 0.5 mg Documented By: RICHIE Lactated Ringer's (Lr) 1,000 mls @ 100 mls/hr IVCONT .Q10H [facility] Last Admin: 04/12/25 07:20 Dose: 100 mls/hr Documented By: CARMEN Piperacillin Sod/Tazobactam (Sod 3.375 gm/ Sodium Chloride) 50 mls @ 100 mls/hr IV Q6H [facility] Last Admin: 04/12/25 08:01 Dose: 100 mls/hr Documented By: CARMEN Acetaminophen (irmev) 1,000 mg in 100 mls @ 400 mls/hr IV Q6H PRN PRN Reason: Pain, Mild (Pain Scale 1-3) Insulin Human Lispro (Insulin Lispro 100 Unit/Ml 3 Ml Vial) 0 unit SUBCUT Q6H [facility]; Protocol Last Admin: 04/12/25 03:02 Dose: Not Given Documented By: RICHIE Non-Admin Reason: No Insulin Coverage Methylprednisolone Sodium Succinate (Methylprednisolone Sod Succ 40 Mg/Ml Vial) 10 mg IVPUSH Q24H [facility] Last Admin: 04/12/25 08:02 Dose: 10 mg Documented By: CARMEN Ondansetron HCl (Ondansetron Hcl 4 Mg/2 Ml Vial) 4 mg IVPUSH QID PRN PRN Reason: Nausea Pantoprazole Sodium (Pantoprazole Sodium 40 Mg/10 Ml Vial) 40 mg IVPUSH BID@0630,1630 [facility] Last Admin: 04/12/25 05:38 Dose: 40 mg Documented By: RICHIE Polyethylene Glycol (Polyethylene Glycol 3350 17 Gm Powd.Pack) 17 gm PO DAILY PRN PRN Reason: Constipation Senna (Sennosides 8.6 Mg Tablet) 17.2 mg PO BEDTIME [facility] Sodium Chloride (0.9 % Sodium Chloride Flush 3 Ml Syringe) 3 ml IVFLUSH QSHIFT [facility] Last Admin: 04/12/25 07:21 Dose: Not Given Documented By: CARMEN Non-Admin Reason: IV Running Zolpidem Tartrate (Zolpidem Tartrate 5 Mg Tablet) 5 mg PO BEDTIME PRN PRN Reason: Insomnia Labs 04/12/25 05:07 04/12/25 05:07 Labs: Laboratory Results - last 24 hr 04/11/25 04/11/25 04/11/25 16:20 17:16 18:46 MCV 87.1 MCH 29.6 MCHC 34.0 RDW 14.7 Plt Count 335 MPV 9.7 Immature Gran % (Auto) 0.3 Neut % (Auto) 85.4 H Lymph % (Auto) 9.3 L [place] % (Auto) 4.6 Eos % (Auto) 0.2 Baso % (Auto) 0.2 Lymph # (Auto) 1.2 Luna # (Auto) 0.6 Eos # (Auto) 0.0 Baso # (Auto) 0.0 Abs Immat Gran (auto) 0.04 H Absolute Neuts (auto) 10.8 H Absolute Nucleated RBC 0.000 Nucleated RBC % (auto) 0.0 Smear Tech's Comments D-Dimer High Sensitivty 552 Anion Gap 21 H Estim Creat Clear Calc 23.2 Estimated GFR 26 POC Glucose Random Glucose 132 H Estimat Average Glucose Hemoglobin A1c % Lactic Acid Uric Acid Calcium 9.5 Magnesium 2.1 Total Bilirubin 0.7 AST 52 H ALT 18 Alkaline Phosphatase 46 Troponin I High Sens 10.8 14.5 B-Natriuretic Peptide 96 Total Protein 8.4 H Albumin 4.4 Lipase 63 TSH Urine Color Yellow Urine Appearance Clear Urine pH 7.5 Ur Specific [place] 1.010 Urine Protein Trace Urine Glucose (UA) Negative Urine Ketones Trace Urine Blood Negative Urine Nitrite Negative Ur Leukocyte Esterase Trace H Urine RBC 0-2 Urine WBC 0-5 Ur Squamous Epith Cells 3-5 Urine Bacteria 1+ Hyaline Casts 0-2 Urine Opiates Screen Not Detected Ur Buprenorphine Scrn Not Detected Ur Oxycodone Screen Positive H Urine Methadone Screen Not Detected Urine Fentanyl Screen Not Detected Ur Barbiturates Screen Not Detected Ur Phencyclidine Scrn Not Detected Ur Amphetamines Screen Not Detected U Benzodiazepines Scrn Not Detected Urine Cocaine Screen Not Detected U Marijuana (THC) Screen POSITIVE H 04/11/25 04/12/25 04/12/25 19:03 03:00 05:07 MCV 88.2 MCH 29.8 MCHC 33.8 RDW 14.8 Plt Count 232 D MPV 9.5 Immature Gran % (Auto) 0.6 H Neut % (Auto) 90.6 H Lymph % (Auto) 4.0 L [place] % (Auto) 4.7 Eos % (Auto) 0.0 Baso % (Auto) 0.1 Lymph # (Auto) 0.6 L [place] # (Auto) 0.7 Eos # (Auto) 0.0 Baso # (Auto) 0.0 Abs Immat Gran (auto) 0.09 H Absolute Neuts (auto) 13.8 H Absolute Nucleated RBC 0.000 Nucleated RBC % (auto) 0.0 Smear Tech's Comments VERIFIED D-Dimer High Sensitivty Anion Gap 13 Estim Creat Clear Calc 31.4 Estimated GFR 31 POC Glucose 123 H Random Glucose 128 H Estimat Average Glucose 120 Hemoglobin A1c % 5.8 Lactic Acid 3.4 H* 1.1 Uric Acid 5.0 Calcium 7.9 L D Magnesium Total Bilirubin 0.3 AST 31 ALT 16 Alkaline Phosphatase 33 L Troponin I High Sens B-Natriuretic Peptide Total Protein 6.1 L Albumin 3.5 Lipase TSH 0.58 Urine Color Urine Appearance Urine pH Ur Specific [place] Urine Protein Urine Glucose (UA) Urine Ketones Urine Blood Urine Nitrite Ur Leukocyte Esterase Urine RBC Urine WBC Ur Squamous Epith Cells Urine Bacteria Hyaline Casts Urine Opiates Screen Ur Buprenorphine Scrn Ur Oxycodone Screen Urine Methadone Screen Urine Fentanyl Screen Ur Barbiturates Screen Ur Phencyclidine Scrn Ur Amphetamines Screen U Benzodiazepines Scrn Urine Cocaine Screen U Marijuana (THC) Screen 04/12/25 07:38 MCV MCH MCHC RDW Plt Count MPV Immature Gran % (Auto) Neut % (Auto) Lymph % (Auto) [place] % (Auto) Eos % (Auto) Baso % (Auto) Lymph # (Auto) [place] # (Auto) Eos # (Auto) Baso # (Auto) Abs Immat Gran (auto) Absolute Neuts (auto) Absolute Nucleated RBC Nucleated RBC % (auto) Smear Tech's Comments D-Dimer High Sensitivty Anion Gap Estim Creat Clear Calc Estimated GFR POC Glucose 101 Random Glucose Estimat Average Glucose Hemoglobin A1c % Lactic Acid Uric Acid Calcium Magnesium Total Bilirubin AST ALT Alkaline Phosphatase Troponin I High Sens B-Natriuretic Peptide Total Protein Albumin Lipase TSH Urine Color Urine Appearance Urine pH Ur Specific [place] Urine Protein Urine Glucose (UA) Urine Ketones Urine Blood Urine Nitrite Ur Leukocyte Esterase Urine RBC Urine WBC Ur Squamous Epith Cells Urine Bacteria Hyaline Casts Urine Opiates Screen Ur Buprenorphine Scrn Ur Oxycodone Screen Urine Methadone Screen Urine Fentanyl Screen Ur Barbiturates Screen Ur Phencyclidine Scrn Ur Amphetamines Screen U Benzodiazepines Scrn Urine Cocaine Screen U Marijuana (THC) Screen Procedures Date of Service Date of Service: 04/12/25 Progress Note: A&P Assessment and plan (1) Pneumoperitoneum: Status: Acute (2) Gastric ulcer: Status: Acute Plan 64-year-old female patient POD 1 following exploratory laparotomy with evidence of a lesser curvature gastric ulcer with ecchymosis on the gastric wall. No active perforation identified in either stomach or colon. Patient appears improved this morning. We will start clear liquid diet. Encouraged out of bed and ambulation. Incentive spirometry. Hospitalist consultation for management of patient's multiple medications. Recheck labs in a.m.. Time Spent With Patient Time: Total time managing care of this patient today ____ minutes. Quality Stroke Does the patient have a stroke diagnosis?: No VTE Prior VTE?: No VTE Risk Level:: Surgical - moderate VTE Device Contraindication: N/A - Device Ordered VTE Drug Contraindication: Treatment Not Indicated
--- NOTE | 2025-04-12 08:30 | HO.POSTANES ---
Post Anesthesia Evaluation Post Anesthesia Evaluation Date of Service: 04/12/25 Vital Signs: Vital Signs Temp Pulse Resp BP Pulse Ox O2 Del Method O2 Flow Rate 04/12/25 07:35 98.6 F 85 16 146/64 H 99 Room Air 04/12/25 03:04 98.2 F 91 20 122/75 98 Nasal Cannula 2 04/11/25 23:37 99.4 F 94 20 121/69 98 Room Air 04/11/25 22:29 98 F 95 16 102/67 96 Room Air 04/11/25 22:19 93 16 126/69 100 Simple Mask 4 04/11/25 22:14 92 16 130/65 100 Simple Mask 6 04/11/25 22:09 93 16 108/71 100 Simple Mask 8 04/11/25 22:04 99.8 F 92 21 H 110/6 L 97 Simple Mask 8 04/11/25 22:00 98.4 F 96 18 125/68 98 Room Air 04/11/25 20:45 95 18 102/59 L 98 Nasal Cannula 2 Anesthesia: General Endotracheal-GETA Mental Status: Awake Pain Control: Satisfactory Nausea/Vomiting: None Hydration: Adequate Anesthesia-Related Issues: No Anes. Related Issues
[2025-04-12 09:30] LABS: Glucose, Whole Blood 105 mg/dL (60-115)
--- NOTE | 2025-04-12 09:43 | PHA.MEDREC ---
Addendum entered by Murray Poole jaden 04/12/25 10:26: MED REC REVIEWED Original Note: Pharmacy Consult ? Medication Reconciliation Pharmacy has completed the medication reconciliation. Spoke with pt and pt at bedside, utilizing corporate meeting planner. Pt had Med Box list and Rx bottles on hand we were able to confirm med rec utilizing that. Pt confirmed she wa taking Docusate, Miralax and Senna for constipation but did not find much relief taking those and stopped them and started taking an OTC med called Prunelax once daily prn constipation. Pt confirmed her Vitamin D3 1250mg once a week on Fridays and Ozempic once a week on Tuesday and confirmed she is due for the Vitamin D3 today and took the Ozempic last Saturday 04/07. Pt confirmed she last took her medications 2 days ago but her thinks she took her morning medications yesterday Am.
--- NOTE | 2025-04-12 11:11 | MHC.CM.PN ---
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
--- NOTE | 2025-04-12 11:57 | HO.PM.IMPN ---
Subjective Subjective Date of Service: 04/12/25 Interval History: POD1 exlap abd pain controlled , no N/V, no dyspnea This history was taken in Frisian from the patient. Review of Systems Review of Systems: Yes all other systems are reviewed and are negative Physical Exam Vital Signs: Vital Signs: Last Vital Signs Temp 98.6 F 04/12/25 07:35 Pulse 85 04/12/25 07:35 Resp 16 04/12/25 07:35 BP 146/64 H 04/12/25 07:35 Pulse Ox 99 04/12/25 07:35 O2 Del Method Room Air 04/12/25 07:35 O2 Flow Rate 2 04/12/25 03:04 BMI result Body Mass Index 23.9 Gen: in no acute distress HEENT: sclera anicteric, moist mucus membranes Neck: supple Lungs: clear to auscultation bilaterally Heart: regular rate and rhythm, no murmurs Abd: dry ex-lap incision Ext: no edema Skin: warm/well-perfused Neuro: alert and oriented x3, no focal findings Psych: appropriate affect Objective Data Active Medications Albuterol Sulfate (Albuterol Sulfate 90 Mcg 8 Gm Inhaler) 2 puff INHALE Q6H PRN PRN Reason: wheezing Albuterol Sulfate (Albuterol Sulfate (0.042%) 1.25 Mg/3 Ml Vial.Neb) 1.25 mg INHALE Q4-6H PRN PRN Reason: shortness of breath or wheezing Albuterol/Ipratropium (Albuterol/Iprat 2.5/0.5mg 3 Ml Ampul.Neb) 3 ml INHALE RQ4H WHILE AWAKE PRN PRN Reason: Shortness of Breath/Wheezing Allopurinol (Allopurinol 100 Mg Tablet) 200 mg PO BEDTIME [facility] Atorvastatin Calcium (Atorvastatin Calcium 20 Mg Tablet) 20 mg PO DAILY [facility] Cyclobenzaprine HCl (Cyclobenzaprine Hcl 5 Mg Tablet) 5 mg PO BEDTIME [facility] Dextrose (Dextrose 50 % 25 Gm/50 Ml Syringe) 25 gm IVPUSH Q15M PRN; Protocol PRN Reason: per Hypoglycemia Standing Ord. Gabapentin (Gabapentin 300 Mg Capsule) 900 mg PO BEDTIME [facility] Glucose (Glucose Gel 15 Gm Gel..Gram.) 15 gm PO Q15M PRN; Protocol PRN Reason: per Hypoglycemia Standing Ord. Hydromorphone HCl (Hydromorphone Hcl 0.5 Mg/0.5 Ml Syringe) 0.5 mg IVPUSH Q3H PRN; Protocol PRN Reason: Pain, Severe (Pain Scale 7-10) Last Admin: 04/12/25 09:07 Dose: 0.5 mg Documented By: CARMEN Hydroxychloroquine Sulfate (Hydroxychloroquine Sulfate 200 Mg Tablet) 200 mg PO BID [facility] Lactated Ringer's (Lr) 1,000 mls @ 100 mls/hr IVCONT .Q10H [facility] Last Admin: 04/12/25 07:20 Dose: 100 mls/hr Documented By: CARMEN Piperacillin Sod/Tazobactam (Sod 3.375 gm/ Sodium Chloride) 50 mls @ 100 mls/hr IV Q6H [facility] Last Infusion: 04/12/25 09:11 Dose: Infused Documented By: CARMEN Acetaminophen (Ofirmev) 1,000 mg in 100 mls @ 400 mls/hr IV Q6H PRN PRN Reason: Pain, Mild (Pain Scale 1-3) Insulin Human Lispro (Insulin Lispro 100 Unit/Ml 3 Ml Vial) 0 unit SUBCUT Q6H [facility]; Protocol Last Admin: 04/12/25 09:30 Dose: Not Given Documented By: CARMEN Non-Admin Reason: No Insulin Coverage Levothyroxine Sodium (Levothyroxine Sodium 75 Mcg Tablet) 75 mcg PO DAILY@0600 [facility] Metoprolol Tartrate (Metoprolol Tartrate 25 Mg Tablet) 25 mg PO BID [facility]; Protocol Non-Formulary Medication (Cholecalciferol (Vitamin D3)) 1,250 mcg PO FR [facility] Ondansetron HCl (Ondansetron Hcl 4 Mg/2 Ml Vial) 4 mg IVPUSH QID PRN PRN Reason: Nausea Pantoprazole Sodium (Pantoprazole Sodium 40 Mg/10 Ml Vial) 40 mg IVPUSH BID@0630,1630 [facility] Last Admin: 04/12/25 05:38 Dose: 40 mg Documented By: RICHIE Polyethylene Glycol (Polyethylene Glycol 3350 17 Gm Powd.Pack) 17 gm PO DAILY PRN PRN Reason: Constipation Prednisone (Prednisone 5 Mg Tablet) 5 mg PO DAILY [facility] Senna (Sennosides 8.6 Mg Tablet) 17.2 mg PO BEDTIME [facility] Sodium Chloride (0.9 % Sodium Chloride Flush 3 Ml Syringe) 3 ml IVFLUSH QSHIFT [facility] Last Admin: 04/12/25 07:21 Dose: Not Given Documented By: CARMEN Non-Admin Reason: IV Running Zolpidem Tartrate (Zolpidem Tartrate 5 Mg Tablet) 5 mg PO BEDTIME PRN PRN Reason: Insomnia Labs 04/12/25 05:07 04/12/25 05:07 Labs: Laboratory Results - last 24 hr 04/11/25 04/11/25 04/11/25 16:20 17:16 18:46 MCV 87.1 MCH 29.6 MCHC 34.0 RDW 14.7 Plt Count 335 MPV 9.7 Immature Gran % (Auto) 0.3 Neut % (Auto) 85.4 H Lymph % (Auto) 9.3 L [place] % (Auto) 4.6 Eos % (Auto) 0.2 Baso % (Auto) 0.2 Lymph # (Auto) 1.2 [place] # (Auto) 0.6 Eos # (Auto) 0.0 Baso # (Auto) 0.0 Abs Immat Gran (auto) 0.04 H Absolute Neuts (auto) 10.8 H Absolute Nucleated RBC 0.000 Nucleated RBC % (auto) 0.0 Smear Tech's Comments D-Dimer High Sensitivty 552 Anion Gap 21 H Estim Creat Clear Calc 23.2 Estimated GFR 26 POC Glucose Random Glucose 132 H Estimat Average Glucose Hemoglobin A1c % Lactic Acid Uric Acid Calcium 9.5 Magnesium 2.1 Total Bilirubin 0.7 AST 52 H ALT 18 Alkaline Phosphatase 46 Troponin I High Sens 10.8 14.5 B-Natriuretic Peptide 96 Total Protein 8.4 H Albumin 4.4 Lipase 63 TSH Urine Color Yellow Urine Appearance Clear Urine pH 7.5 Ur Specific [place] 1.010 Urine Protein Trace Urine Glucose (UA) Negative Urine Ketones Trace Urine Blood Negative Urine Nitrite Negative Ur Leukocyte Esterase Trace H Urine RBC 0-2 Urine WBC 0-5 Ur Squamous Epith Cells 3-5 Urine Bacteria 1+ Hyaline Casts 0-2 Urine Opiates Screen Not Detected Ur Buprenorphine Scrn Not Detected Ur Oxycodone Screen Positive H Urine Methadone Screen Not Detected Urine Fentanyl Screen Not Detected Ur Barbiturates Screen Not Detected Ur Phencyclidine Scrn Not Detected Ur Amphetamines Screen Not Detected U Benzodiazepines Scrn Not Detected Urine Cocaine Screen Not Detected U Marijuana (THC) Screen POSITIVE H 04/11/25 04/12/25 04/12/25 19:03 03:00 05:07 MCV 88.2 MCH 29.8 MCHC 33.8 RDW 14.8 Plt Count 232 D MPV 9.5 Immature Gran % (Auto) 0.6 H Neut % (Auto) 90.6 H Lymph % (Auto) 4.0 L [place] % (Auto) 4.7 Eos % (Auto) 0.0 Baso % (Auto) 0.1 Lymph # (Auto) 0.6 L [place] # (Auto) 0.7 Eos # (Auto) 0.0 Baso # (Auto) 0.0 Abs Immat Gran (auto) 0.09 H Absolute Neuts (auto) 13.8 H Absolute Nucleated RBC 0.000 Nucleated RBC % (auto) 0.0 Smear Tech's Comments VERIFIED D-Dimer High Sensitivty Anion Gap 13 Estim Creat Clear Calc 31.4 Estimated GFR 31 POC Glucose 123 H Random Glucose 128 H Estimat Average Glucose 120 Hemoglobin A1c % 5.8 Lactic Acid 3.4 H* 1.1 Uric Acid 5.0 Calcium 7.9 L D Magnesium Total Bilirubin 0.3 AST 31 ALT 16 Alkaline Phosphatase 33 L Troponin I High Sens B-Natriuretic Peptide Total Protein 6.1 L Albumin 3.5 Lipase TSH 0.58 Urine Color Urine Appearance Urine pH Ur Specific [place] Urine Protein Urine Glucose (UA) Urine Ketones Urine Blood Urine Nitrite Ur Leukocyte Esterase Urine RBC Urine WBC Ur Squamous Epith Cells Urine Bacteria Hyaline Casts Urine Opiates Screen Ur Buprenorphine Scrn Ur Oxycodone Screen Urine Methadone Screen Urine Fentanyl Screen Ur Barbiturates Screen Ur Phencyclidine Scrn Ur Amphetamines Screen U Benzodiazepines Scrn Urine Cocaine Screen U Marijuana (THC) Screen 04/12/25 04/12/25 07:38 09:21 MCV MCH MCHC RDW Plt Count MPV Immature Gran % (Auto) Neut % (Auto) Lymph % (Auto) [place] % (Auto) Eos % (Auto) Baso % (Auto) Lymph # (Auto) [place] # (Auto) Eos # (Auto) Baso # (Auto) Abs Immat Gran (auto) Absolute Neuts (auto) Absolute Nucleated RBC Nucleated RBC % (auto) Smear Tech's Comments D-Dimer High Sensitivty Anion Gap Estim Creat Clear Calc Estimated GFR POC Glucose 101 105 Random Glucose Estimat Average Glucose Hemoglobin A1c % Lactic Acid Uric Acid Calcium Magnesium Total Bilirubin AST ALT Alkaline Phosphatase Troponin I High Sens B-Natriuretic Peptide Total Protein Albumin Lipase TSH Urine Color Urine Appearance Urine pH Ur Specific [place] Urine Protein Urine Glucose (UA) Urine Ketones Urine Blood Urine Nitrite Ur Leukocyte Esterase Urine RBC Urine WBC Ur Squamous Epith Cells Urine Bacteria Hyaline Casts Urine Opiates Screen Ur Buprenorphine Scrn Ur Oxycodone Screen Urine Methadone Screen Urine Fentanyl Screen Ur Barbiturates Screen Ur Phencyclidine Scrn Ur Amphetamines Screen U Benzodiazepines Scrn Urine Cocaine Screen U Marijuana (THC) Screen Assessment and Plan (1) Gastric ulcer: Status: Acute Plan d2 for 64yo F with SLE/RA on chronic prednisone 5 mg/d, CKD4, gout, HTN, asthma, hypothyroidism, CPAP, and DM2, s/p ex-lap for suspicion of perforated viscus, found to have gastric ulcer with clot, no active perforation; medicine consult for management of comorbid conditions gastric ulcer - bid PPI IV, advance to clears per Gen Surg DONI/CKD4 acute metabolic acidosis - improving with IV LR, Nephro consult pending, holding irbesartan and furosemide steroid-dependent SLE/RA - continue hydroxychloroquine - got 80 mg IV methylprednisolone preop for stress dose; give 10 mg IV methylprednisolone today and resume usual 5 mg/d prednisone tomorrow; in future, would give IV hydrocortisone 50-100 mg for stress dosing as that is more physiologic hypothyroidism - continue LT4 peripheral neuropathy - continue gabapentin gout - continue allopurinol HLD - continue atorvastatin asthma - prn nebs, not in acute exacerbation HTN - continue metoprolol tartrate, hold irbesartan + furosemide DM2 - on Ozempic as outpt, give correction-dose lispro here LONA - CPAP at night dispo - TBD VTE ppx - heparin when OK with surgery Thank you for this consultation. We will continue to follow the patient while they are admitted to your service. Total time managing care of this patient today: 40 minutes. Quality Stroke Does the patient have a stroke diagnosis?: No VTE Prior VTE?: No VTE Risk Level:: Surgical - moderate VTE Device Contraindication: N/A - Device Ordered VTE Drug Contraindication: Treatment Not Indicated
[2025-04-12 12:01] LABS: Glucose, Whole Blood 117 mg/dL (60-115)
--- NOTE | 2025-04-12 13:00 | CA_ITS ---
Transthoracic Echocardiogram Patient (Last, First, Middle): Nicky Lopez, Gender: Female Date of : 1960 Age: 64 Procedure Date: 04/12/2025 Procedure Type: Transthoracic Echocardiogram Location: S3E Height: 157.48 cm Weight: 61.69 kg BSA: 1.62 m2 Heart Rate: bpm BP: 146 / 64 mmHg Assistant Signal Maintainer: Referring MD: Supa Orozco MD Poultry Eviscerator: Landon Dodge MD Symptoms: high probability of PE Study Quality: Good ECG Rhythm: Sinus Conclusions: - 1. Hyperdynamic LV ejection fraction of greater than 70% with grade 1 diastolic dysfunction 2. Normal RV systolic function 3. Normal cardiac valvular Dopplers 4. Normal RV systolic pressure 5. No gross pericardial effusion Findings Left Ventricle Normal left ventricular cavity size. There is normal left ventricular wall thickness. The left ventricular systolic function is hyperdynamic. The visually estimated ejection fraction is >70%. Regional wall motion abnormalities can not be excluded due to suboptimal endocardial definition. Spectral Doppler is indicative of an impaired relaxation filling pattern. E/E prime ratio is <8, consistent with normal filling pressures. Evidence suggests grade I (mild) diastolic dysfunction. Right Ventricle Normal right ventricular cavity size and systolic function. Atria The left atrium is normal in size. Interatrial shunt cannot be excluded. The right atrium was not well visualized. Aortic Valve The aortic valve structure and function is likely normal. There is no aortic valve stenosis. There is no aortic valve regurgitation. Mitral Valve Likely normal mitral valve structure and function. There is trace mitral valve regurgitation. There is no mitral valve stenosis. Pulmonic Valve The pulmonic valve was not well visualized. Tricuspid Valve Likely normal tricuspid valve structure and function. There is trace tricuspid valve regurgitation. The right ventricular systolic pressure is normal. The right ventricular systolic pressure is 22 mmHg. Normal right atrial pressure. There is no evidence of pulmonary hypertension. Great Vessels All visible segments of the aorta are normal in size. The pulmonary artery was not well visualized. Venous The inferior vena cava is normal in size and collapses greater than 50% with inspiration. Pericardium/Pleural There is no evidence of pericardial effusion. Prior Study Comparison No prior study available for comparison. Measurements 2D Linear Measurements IVSd: 1.10 0.6-0.9/0.6-1.0 cm LVIDd: 3.98 3.9-5.3/4.2-5.9 cm LVIDd Index: 2.46 2.4-3.2/2.2-3.1 cm/m2 LVIDs: 2.34 2.0-3.6 cm LVPWd: 1.10 0.7-1.1 cm Ao Root: 2.80 2.1-3.5 cm LA Diam: 3.20 2.7-3.8/3.0-4.0 cm LAIDs Index: 1.98 1.5-2.3 cm/m2 LV Mass: 179.90 67-162/88-224 g LV Mass Index: 111.05 43-95/49-115 g/m2 LVOT Diam: 2.00 3.0+(-)1.3 cm Mitral Valve MV Pk E: 0.74 MV PK A: 1.26 MV Decel Time: 109.00 E/A: 0.60 E'Lateral: 9.14 E'Medial: 8.16 E/E' Med: 9.10 E/E' Lat: 8.10 PHT: 32.00 MVA PHT: 6.88 [place]: 6.81 Aortic Valve AoV Pk Vick: 1.91 AoV Mn Vick: 1.19 AoV VTI: 0.34 AoV Pk Grad: 15.00 Aov Mn Grad: 7.00 [place] Cont.VTI: 2.90 LVOT LVOT Pk Vick: 1.52 LVOT Mn Vick: 0.92 LVOT VTI: 0.31 LVOT Pk Grad: 9.00 LVOT Mn Grad: 4.00 LVOT Diam: 2.00 LVOT Area: 3.14 Diastolic Function MV Pk E: 0.74 MV Pk A: 1.26 E/A: 0.60 E'Medial: 8.16 E/E' Med: 9.10 E' Laterial: 9.14 E/E' Lat: 8.10 Right Ventricle TAPSE (mm): 37.00 Tricuspid Valve TR Pk Vick: 2.11 TR Pk Grad: 18.00 RA Press: 3.00 RVSP: 22.00 Great Vessels Aorta Ao Root-2D: 2.80 2.0-3.7 cm Ao Asc: 3.00 2.1-3.4 cm Pulmonary Valve PV Pk Vick: 1.15 Peak PV Grad: 5.00 Updated in Other Vendor System with Status of Final Landon Dodge MD electronically signed on 04/12/2025 3:24:23 PM with status of Final
[2025-04-12 13:21] LABS: INTERNATIONAL NORM RATIO 0.9 (0.9-1.1); Prothrombin Time 10.7 SEC (10.9-12.4)
[2025-04-12 13:24] LABS: D Dimer High Sensitivity 427 NG/ML; PTT Heparin Drip 26.6 SEC (53-77.9)
[2025-04-12 13:34] LABS: Anion Gap 13 (12-20); B Type Natriuretic Peptide 348 pg/mL (<100); Blood Urea Nitrogen 24 mg/dL (9-16); Calcium 8.6 mg/dL (8.4-10.2); Carbon Dioxide 25 mmol/L (22-29); Chloride 106 mmol/L (96-108); Creatinine Clr Calc Pharmacy 37.3; Estimated Glomerular Filt Rate 34; Glucose Random 121 mg/dL (60-115); Potassium 3.9 mmol/L (3.3-5.1); Sodium 140 mmol/L (135-145); Troponin-I High Sensitivity 13.4 ng/L (<3.5-17.0)
[2025-04-12] MEDS: Heparin Sodium,Porcine 5,000 UNIT/ML VIAL 5100 UNIT IVPUSH (13:54)
[2025-04-12] MEDS: Heparin Sodium,Porcine/1/2NS 25,000 UNIT/250 ML IV.SOLN 8.99 UNIT IVCONT (13:58)
[2025-04-12] MEDS: Insulin Lispro 100 UNIT/ML 3 ML VIAL SUBCUT (14:57)
[2025-04-12 15:03] LABS: Glucose, Whole Blood 166 mg/dL (60-115)
--- NOTE | 2025-04-12 15:38 | P.CONNP_ITS ---
History of Present Illness Reason for Consult Consult date: 04/12/25 Reason for consult: DONI/CKD Chief Complaint Chief complaint: perforated viscus History of Present Illness Narrative: RTANE consulted for DONI on CKD with peak Scr 1.9 responded to IVF Scr 1.5 today which is her BSL 64 Y/O F CKD 3 and underlying CVD being followed by Rheum and CKD 3 with kidney Bx c/w DM/HTN renal dis and no evid of IM-Cx renal dis now adm with abd pain requiring exp Lap s/p procedure as noted in hte records Currently on IVF and making urine and SCr stable PMH as noted Review of Systems Review of Systems Patient is reporting acute abdominal pain secondary to surgery. Patient states she is thirsty and currently can have ice chips. Patient is tolerating these without nausea or vomiting. Patient denies any chest pain, shortness of breath at rest or wheezing. Patient denies any chronic issues with swallowing. Patient denies any headache or visual changes. Yes all other systems are reviewed and are negative Constitutional: Reports body ache(s), Reports chills, Reports poor appetite and Reports weakness Cardiovascular: Reports palpitations, Reports dyspnea on exertion and Reports orthopnea Respiratory: Reports dyspnea on exertion Gastrointestinal: Reports abdominal pain, Denies constipation, Reports heartburn and Reports nausea Reports weakness Endocrine: Reports palpitations PMFSH Past Medical History Medical History Undifferentiated connective tissue disease Lipoma On allopurinol therapy Gout Breast calcification, right Positive PHYLLIS (antinuclear antibody) Fibromyalgia History of primary hyperparathyroidism Osteopenia Dyslipidemia Hypothyroidism LONA on CPAP Bronchial asthma Epidermal inclusion cyst Morbid obesity Gout of right foot PHYLLIS positive Seronegative rheumatoid arthritis Diabetes type 2, uncontrolled Family History Family History Daughter History of breast cancer Father Cirrhosis Diabetes Arthritis Mother Arthritis Sister Diabetes Surgical History Surgical History History of surgery Hx of excision of mass History of kidney surgery S/P breast lumpectomy H/O parathyroidectomy Hx of cholecystectomy H/O tubal ligation Social History Social History (Updated 04/12/25 @ 02:28 by PEDRO Lopez) Household Members: Children Housing: Apartment Alcohol intake: never Patient Tobacco Use Status: Former Tobacco user Tobacco use type: Cigarette Smoked in Last 30 Days: No Use of substances other than those prescribed or required for medical reasons: Yes Substance Use Type: Marijuana Currently Displaying Signs/Symptoms of Drug Intoxication Withdrawal: No Have you been hit, kicked, punched, or otherwise hurt by someone within the past year? If so, by whom?: No Do you feel safe in your current relationship?: Yes Is there a partner from a previous relationship who is making you feel unsafe now?: No Are you made to feel afraid or neglected: No Advance Directives: No Advance Directives Information Provided: Yes Do you have a plan to hurt others: No Plan Recently lost weight without trying: No Nutrition Risks: No Nutritional Risk Patient : No : No Poor oral hygiene: No service: No Travel History Ebola Risk: Travel/Contact With Anyone From Affected Area/s: No Has Patient Experienced Ebola Symptoms: No Meds Allergies Allergy/AdvReac Type Severity Reaction Status Date / Time aspirin [ASA] Allergy Intermediate ITCHY, Verified 04/11/25 15:33 HOT, AND HEADACHE calcium Allergy Intermediate Vomiting Verified 04/11/25 15:33 Penicillins Allergy Intermediate RASH Verified 04/11/25 15:33 tofacitinib [Xeljanz] Allergy Intermediate chest Verified 04/11/25 15:33 pain, headaches sulfasalazine Allergy Unknown unknown Verified 04/11/25 15:33 Active Medications: Current Medications Albuterol Sulfate (Albuterol Sulfate 90 Mcg 8 Gm Inhaler) 2 puff INHALE Q6H PRN PRN Reason: wheezing Albuterol Sulfate (Albuterol Sulfate (0.042%) 1.25 Mg/3 Ml Vial.Neb) 1.25 mg INHALE Q4H PRN PRN Reason: shortness of breath or wheezing Albuterol/Ipratropium (Albuterol/Iprat 2.5/0.5mg 3 Ml Ampul.Neb) 3 ml INHALE RQ4H WHILE AWAKE PRN PRN Reason: Shortness of Breath/Wheezing Allopurinol (Allopurinol 100 Mg Tablet) 200 mg PO BEDTIME [facility] Atorvastatin Calcium (Atorvastatin Calcium 20 Mg Tablet) 20 mg PO DAILY [facility] Cyclobenzaprine HCl (Cyclobenzaprine Hcl 5 Mg Tablet) 5 mg PO BEDTIME [facility] Dextrose (Dextrose 50 % 25 Gm/50 Ml Syringe) 25 gm IVPUSH Q15M PRN; Protocol PRN Reason: per Hypoglycemia Standing Ord. Gabapentin (Gabapentin 300 Mg Capsule) 900 mg PO BEDTIME [facility] Glucose (Glucose Gel 15 Gm Gel..Gram.) 15 gm PO Q15M PRN; Protocol PRN Reason: per Hypoglycemia Standing Ord. Heparin Sodium (Porcine) (Heparin Sodium,Porcine 5,000 Unit/Ml Vial) 2,600 unit 40 unit/kg (2400 unit) IVPUSH PROTOCOL BOLUS PRN; Protocol PRN Reason: 40 unit/kg - Heparin Protocol Heparin Sodium (Porcine) (Heparin Sodium,Porcine 5,000 Unit/Ml Vial) 5,100 unit 80 unit/kg (4700 unit) IVPUSH PROTOCOL BOLUS PRN; Protocol PRN Reason: 80 unit/kg - Heparin Protocol Hydromorphone HCl (Hydromorphone Hcl 0.5 Mg/0.5 Ml Syringe) 0.5 mg IVPUSH Q3H PRN; Protocol PRN Reason: Pain, Severe (Pain Scale 7-10) Last Admin: 04/12/25 14:51 Dose: 0.5 mg Hydroxychloroquine Sulfate (Hydroxychloroquine Sulfate 200 Mg Tablet) 200 mg PO BID [facility] Lactated Ringer's (Lr) 1,000 mls @ 100 mls/hr IVCONT .Q10H [facility] Last Infusion: 04/12/25 14:54 Dose: 0 mls/hr Piperacillin Sod/Tazobactam (Sod 3.375 gm/ Sodium Chloride) 50 mls @ 100 mls/hr IV Q6H [facility] Last Admin: 04/12/25 14:53 Dose: 100 mls/hr Acetaminophen (Ofirmev) 1,000 mg in 100 mls @ 400 mls/hr IV Q6H PRN PRN Reason: Pain, Mild (Pain Scale 1-3) Heparin Sodium/Sodium Chloride (Heparin Sodium,Porcine/1/2ns) 25,000 unit in 250 mls @ 0 mls/hr IVCONT .Q0M [facility]; Protocol Last Admin: 04/12/25 13:58 Dose: 14 units/kg/hr, 8.99 mls/hr Insulin Human Lispro (Insulin Lispro 100 Unit/Ml 3 Ml Vial) 0 unit SUBCUT Q6H [facility]; Protocol Last Admin: 04/12/25 14:57 Dose: 2 unit Levothyroxine Sodium (Levothyroxine Sodium 75 Mcg Tablet) 75 mcg PO DAILY@0600 [facility] Metoprolol Tartrate (Metoprolol Tartrate 25 Mg Tablet) 25 mg PO BID [facility]; Protocol Ondansetron HCl (Ondansetron Hcl 4 Mg/2 Ml Vial) 4 mg IVPUSH QID PRN PRN Reason: Nausea Pantoprazole Sodium (Pantoprazole Sodium 40 Mg/10 Ml Vial) 40 mg IVPUSH BID@0630,1630 [facility] Last Admin: 04/12/25 05:38 Dose: 40 mg Polyethylene Glycol (Polyethylene Glycol 3350 17 Gm Powd.Pack) 17 gm PO DAILY PRN PRN Reason: Constipation Prednisone (Prednisone 5 Mg Tablet) 5 mg PO DAILY [facility] Senna (Sennosides 8.6 Mg Tablet) 17.2 mg PO BEDTIME [facility] Sodium Chloride (0.9 % Sodium Chloride Flush 3 Ml Syringe) 3 ml IVFLUSH QSHIFT [facility] Last Admin: 04/12/25 07:21 Dose: Not Given Zolpidem Tartrate (Zolpidem Tartrate 5 Mg Tablet) 5 mg PO BEDTIME PRN PRN Reason: Insomnia Home Medications ?Medication ?Instructions ?Recorded ?Confirmed ?Last Taken ?Type atorvastatin 20 mg tablet 20 mg PO DAILY 08/21/20 04/12/25 1 Day Ago History ~04/11/25 omeprazole magnesium 20 mg 20 mg PO DAILY@0608/21/20 04/12/25 1 Day Ago History tablet,delayed release (Prilosec ~04/11/25 OTC) furosemide 40 mg tablet 40 mg PO BID 03/22/22 04/12/25 1 Day Ago History ~04/11/25 irbesartan 75 mg tablet 75 mg PO DAILY 03/22/22 04/12/25 1 Day Ago History ~04/11/25 levothyroxine 75 mcg capsule 75 mcg PO DAILY@0600 03/22/22 04/12/25 1 Day Ago History ~04/11/25 metoprolol tartrate 25 mg tablet 25 mg PO BID 05/06/22 04/12/25 1 Day Ago History ~04/11/25 blood sugar diagnostic (Lai #10 ea 07/22/22 04/03/25 Unknown History Lite Strips) albuterol sulfate 90 mcg/actuation 2 puff inhalation Q6H PRN wheezing 04/12/25 04/12/25 Unknown History aerosol inhaler (Ventolin HFA) allopurinol 100 mg tablet 200 mg PO BEDTIME 04/12/25 04/12/25 04/10/25 History cholecalciferol (vitamin D3) 1,250 1,250 mcg PO FR 04/12/25 04/12/25 04/05/25 History mcg (50,000 unit) capsule oxycodone-acetaminophen 5 mg-325 1 tab PO Q6H PRN severe pain 04/12/25 04/12/25 Unknown History mg tablet semaglutide 0.25 mg or 0.5 mg (2 0.5 mg subcut VIEIRA 04/12/25 04/12/25 04/07/25 History mg/3 mL) subcutaneous pen injector (Ozempic) Physical Exam Vital Signs: Last Vital Signs Temp 98.6 F 04/12/25 07:35 Pulse 85 04/12/25 07:35 Resp 16 04/12/25 07:35 BP 146/64 H 04/12/25 07:35 Pulse Ox 99 04/12/25 07:35 O2 Del Method Room Air 04/12/25 07:35 O2 Flow Rate 2 04/12/25 03:04 BMI result Body Mass Index 0.0 Const General: no acute distress Nutritional Appearance: well nourished Orientation/consciousness: patient oriented x3 Limitations: language barrier (guide setter Refugio at bedside to assist with patient pre-op) HEENT Head: Yes normocephalic and Yes atraumatic Resp Other: Tachypnea Effort & Inspection: normal respiratory effort, no audible wheezes, no cough and no respiratory distress GI Other: Soft and nondistended, dressings clean and intact Palpation (GI): Soft to palpation, Tenderness to palpation present (GI) in the epigastrum and in the LUQ; not in the LLQ and not in the RLQ, Guarding due to palpation present (GI) and not rigid Percussion: Yes normal to percussion Auscultation: abnormal bowel sounds Rectal Exam - Female: deferred Skin Other: Warm, dry, no rash Neuro General: patient oriented x3 Extrem General: Yes normal to inspection Results Lab Results 04/12/25 05:07 04/12/25 13:06 Lab results: Chemistry 04/11/25 04/12/25 04/12/25 16:20 05:07 13:06 Sodium 138 141 140 Potassium 4.8 4.0 3.9 Carbon Dioxide 21 L 24 25 BUN 34 H 29 H 24 H Creatinine 1.91 H 1.67 H 1.52 H Calcium 9.5 7.9 L D 8.6 D Hematology 04/11/25 04/12/25 16:20 05:07 WBC 12.6 H 15.2 H Hgb 14.9 11.9 L D Plt Count 335 232 D Urinalysis 04/11/25 17:16 Urine Color Yellow Urine Appearance Clear Urine pH 7.5 Ur Specific [place] 1.010 Urine Protein Trace Urine Glucose (UA) Negative Urine Ketones Trace Urine Blood Negative Urine Nitrite Negative Ur Leukocyte Esterase Trace H Urine RBC 0-2 Urine WBC 0-5 Ur Squamous Epith Cells 3-5 Hyaline Casts 0-2 Assessment and Plan (1) Gastric ulcer: Qualifiers: Gastric ulcer chronicity: acute Gastric ulcer complication status: with both hemorrhage and perforation Qualified Code(s): K25.2 - Acute gastric ulcer with both hemorrhage and perforation Status: Acute Plan 64yo F with SLE/RA on chronic prednisone 5 mg/d, CKD4, gout, HTN, asthma, hypothyroidism, CPAP, and DM2, s/p ex-lap for suspicion of perforated viscus, found to have gastric ulcer with clot, no active perforation DONI: peak SCr 1.9 resolved wth IVF c/w pre-renal CKD 3: c/w DN/HTN renal dis DM HTN CVDz: as per noted on meds and f/u with Rheum REC: cont IVF untl taking PO, hold ARB, avoid NSAIDs, may need rheum f/u if flare of Rheum Dz is a concern CAll any questions Procedures Date of Service Date of Service: 04/12/25
[2025-04-12 15:42] VITALS: BP 154/89; PULSE 84; RESP 16; TEMP 36.9; O2SAT 99
[2025-04-12 15:51] VITALS: BMI 25.9
[2025-04-12 19:34] VITALS: PULSE 99; RESP 16; TEMP 36.8; O2SAT 100
[2025-04-12] MEDS: iohexoL 350 MG/ML 100 ML INFUS..BTL 65 ML IV (19:48)
[2025-04-12 20:00] VITALS: BP 160/90
[2025-04-12] MEDS: Gabapentin 300 MG CAPSULE 900 MG PO (20:16)
[2025-04-12] MEDS: allopurinoL 100 MG TABLET 200 MG PO (20:16)
[2025-04-12] MEDS: Hydroxychloroquine Sulfate 200 MG TABLET PO (20:16)
[2025-04-12] MEDS: Cyclobenzaprine HCl 5 MG TABLET PO (20:17)
[2025-04-12] MEDS: Sennosides 8.6 MG TABLET 17.2 MG PO (20:17)
[2025-04-12] MEDS: Metoprolol Tartrate 25 MG TABLET PO (20:17)
[2025-04-12 20:35] LABS: Glucose, Whole Blood 117 mg/dL (60-115)
[2025-04-12 21:23] LABS: PTT Heparin Drip 114.4 SEC (53-77.9)
[2025-04-12] MEDS: Zolpidem Tartrate 5 MG TABLET PO (21:51)
--- NOTE | 2025-04-12 22:58 | PC.RT ---
Patient ordered for noc cpap. Patient states she only wears nasal mask, discussed with patient that we currently only provide full face mask and patient refusing hospital cpap with full face mask. Patient requesting to stay on nasal cannula overnight. Discussed with patient to have family bring in home unit for noc use.
--- NOTE | 2025-04-13 01:40 | PC.NURSE ---
Respiratory contacted regarding setting up a CPAP for the night for the patient. Responded that only full face masks are available and patient won't be able to tolerate it and states will be fine with just O2.
--- NOTE | 2025-04-13 01:55 | CONS_ITS ---
DATE OF SERVICE: 04/12/2025 REFERRING PHYSICIAN: Nallely Alexandra NP REASON FOR CONSULTATION: Gastric ulcer, GLP-1 use. HISTORY OF PRESENT ILLNESS: The patient is a pleasant 64-year-old woman who was admitted to the hospital on April 11 after presenting to the emergency room with complaints of chest pain with shortness of breath, nausea and vomiting, and abdominal pain. Evaluation in the emergency department documented an elevated D-dimer and CT scanning showed a pneumoperitoneum secondary to perforated viscus. She was brought to the operating room by Dr. Kemp and underwent exploratory laparotomy, and the findings are reviewed. Postoperatively, she was felt to have a perforated gastric ulcer with a hematoma, but no active perforation and did not require an over so. Since surgery, she has been feeling well except for incisional abdominal pain, hematocrit dropped from 43 to 35 without any melena, likely delusional, and she is being treated with high-dose proton pump inhibitor intravenously. She has been started on a clear liquid diet. She denies any prior history of peptic ulcer disease. She does have a chronic history of gastroesophageal reflux disease and reports compliance with omeprazole at home as an outpatient. Previous evaluation has included upper endoscopy and colonoscopy in the remote past. Endoscopy in 2010 showed a small hiatal hernia and no evidence of Kuo esophagus. Colonoscopy was last done in July 2016 because of a personal history of colon polyps and showed diverticulosis and small internal hemorrhoids. Based on heard findings at that time, 10 year followup was recommended. As an outpatient, she has had no history of hematemesis or melena. She denies chronic use of NSAIDs and does not drink alcohol to excess. PAST MEDICAL HISTORY: 1. Gastroesophageal reflux disease. 2. Connective tissue disease. 3. Hyperlipidemia. 4. Osteopenia. 5. Hypothyroidism. 6. LONA/CPAP. 7. Chronic kidney disease. 8. Gout. 9. Peripheral vascular disease. 10. Hypertension. 11. Diabetes mellitus type 2 for which she has been on Ozempic. CURRENT MEDICATIONS: Her current medication list is reviewed in the chart. ALLERGIES: THERE ARE MULTIPLE MEDICATION ALLERGIES, WHICH ARE REVIEWED. FAMILY HISTORY: This is reviewed in the electronic medical record and stable. SOCIAL HISTORY: There is no current tobacco or significant alcohol use. She does use marijuana on a daily basis. REVIEW OF SYSTEMS: SKIN: No pruritus. HEENT: Negative. CARDIOPULMONARY: She denies shortness of breath or chest pain. GASTROINTESTINAL: As above. GENITOURINARY: Negative. NEUROPSYCHIATRIC: Negative. PHYSICAL EXAMINATION: GENERAL: Shows a pleasant female, lying comfortably in bed. The history and physical performed with the assistance of a hospital instrumentation controls engineer. SKIN: Anicteric. HEENT: Shows no scleral icterus. NECK: Without lymphadenopathy or thyromegaly. LUNGS: Clear. HEART: Shows a regular rate and rhythm. S1, S2. No murmur. ABDOMEN: Soft. Bowel sounds are present. There is some tenderness around her incision, which is dressed. There is no guarding or rebound. EXTREMITIES: Without edema. VITAL SIGNS: Reviewed. LABORATORY DATA AND IMAGING STUDIES: Reviewed. IMPRESSION: Perforated viscus. This may be due to a gastric ulcer based on the findings at the time of laparotomy. This was discussed with Dr. Kemp. At this time, I would not recommend endoscopy given her recent surgery and the fact that the ulcer, if it did cause a perforation, appears to have healed itself. I would continue high-dose proton pump inhibitor and gradually advance her diet as tolerated. Endoscopy should be considered electively once she is healed from her operative procedure to rule out any sort of underlying malignancy as a cause for a possible gastric ulcer as being on omeprazole, it should be unlikely develop peptic ulcer disease. This was discussed with the patient. Her hospital course was complicated by the fact that she had a scan to evaluate an elevated D-dimer, and this is interpreted as showing high probability for pulmonary emboli based on the Nuclear Medicine findings and will likely need to be heparinized. Discussion with Dr. Orozco was undertaken because of the risk of bleeding, if she does in fact have a gastric ulcer, and he plans on obtaining a CT angiogram of the lungs for further evaluation. At this time, if she needs to be heparinized, this should be done because of the greater risk of pulmonary embolism and complications than GI bleeding. If bleeding ensues, endoscopy could be considered, although she is at high risk for this. Thanks for asking me to see her. I will follow her in the hospital with you. MD LEANDRO Alatorre/MIKE / [phone]
--- NOTE | 2025-04-13 02:18 | PC.NURSE ---
Patient has a FC post-operatively. No order for FC. Will forward message to AM shift to obtain order or dc maicol.
[2025-04-13] MEDS: Acetaminophen 1,000 MG/100 ML PIGGYBACK 400 MG IV ×2 (02:32→20:10)
[2025-04-13] MEDS: Piperacillin Sodium/Tazobactam 3.375 GM in 0.9 % Sodium Chloride 50 ML IV ×4 (02:33→20:09)
[2025-04-13 03:07] LABS: Glucose, Whole Blood 117 mg/dL (60-115)
[2025-04-13 03:31] VITALS: BP 174/93; PULSE 78; RESP 20; TEMP 36.1; O2SAT 95
[2025-04-13] MEDS: ondansetron HCL 4 MG/2 ML VIAL IVPUSH (04:08)
[2025-04-13] MEDS: Lactated Ringers 1,000 ML 100 ML IVCONT ×2 (04:13→14:44)
[2025-04-13] MEDS: Levothyroxine Sodium 75 MCG TABLET PO (05:37)
[2025-04-13] MEDS: Pantoprazole Sodium 40 MG/10 ML VIAL IVPUSH ×2 (05:37→16:43)
[2025-04-13 07:04] LABS: Hematocrit 35.6 % (37.0-47.0); Hemoglobin 11.8 g/dl (12.0-16.0); Mean Corpuscular HGB Conc 33.1 g/dl (31.0-35.0); Mean Corpuscular Hemoglobin 29.7 pg (27.0-33.0); Mean Corpuscular Volume 89.7 fL (80.0-98.0); Platelet Count 226 X10*3/uL (160-400); Red Blood Count 3.97 X10*6/uL (4.20-5.50); Red Cell Distribution Width 14.9 % (11.0-16.0); White Blood Count 13.3 X10*3/uL (4.8-10.8)
[2025-04-13 07:18] VITALS: BP 172/84; PULSE 80; RESP 18; TEMP 36.5; O2SAT 100
[2025-04-13 07:21] LABS: Anion Gap 11 (12-20); Blood Urea Nitrogen 18 mg/dL (9-16); Calcium 8.1 mg/dL (8.4-10.2); Carbon Dioxide 24 mmol/L (22-29); Chloride 110 mmol/L (96-108); Creatinine Clr Calc Pharmacy 40.1; Estimated Glomerular Filt Rate 44; Glucose Random 107 mg/dL (60-115); Potassium 3.7 mmol/L (3.3-5.1); Sodium 141 mmol/L (135-145)
[2025-04-13] MEDS: HYDROmorphone HCl 0.5 MG/0.5 ML SYRINGE IVPUSH ×2 (07:43→14:51)
--- NOTE | 2025-04-13 08:24 | PC.NURSE ---
Pt instructed on use of incentive spirometer and need to increase activity OOB
[2025-04-13 08:40] LABS: Glucose, Whole Blood 83 mg/dL (60-115)
[2025-04-13] MEDS: Hydroxychloroquine Sulfate 200 MG TABLET PO ×2 (09:15→20:09)
[2025-04-13] MEDS: Atorvastatin Calcium 20 MG TABLET PO (09:15)
[2025-04-13] MEDS: Metoprolol Tartrate 25 MG TABLET PO ×2 (09:15→20:09)
[2025-04-13] MEDS: predniSONE 5 MG TABLET PO (09:15)
--- NOTE | 2025-04-13 13:06 | PM.PNGS ---
Subjective Subjective Date of Service: 04/13/25 Interval history: pt feeling well, says was walking and passing gas, tolerating some liquid diet no bowel movement no chest pain or SOB Physical Exam Vital Signs: Vital Signs: Last Vital Signs Temp 97.7 F 04/13/25 07:18 Pulse 80 04/13/25 07:18 Resp 18 04/13/25 07:18 BP 172/84 H 04/13/25 07:18 Pulse Ox 100 04/13/25 07:18 O2 Del Method Room Air 04/13/25 07:18 O2 Flow Rate 1 04/13/25 03:31 BMI result Body Mass Index 25.9 Const: General: cooperative, healthy appearing, comfortable and no acute distress Resp: Effort & Inspection: normal respiratory effort Auscultation: clear to auscultation bilaterally Cardio: Rate: regular rate Rhythm: regular rhythm GI: Other: abdomen soft nontender bandages intact - good bowel sounds abdomen is distended but soft - pt says it is like her normal girth Objective Data Active Medications Albuterol Sulfate (Albuterol Sulfate 90 Mcg 8 Gm Inhaler) 2 puff INHALE Q6H PRN PRN Reason: wheezing Albuterol Sulfate (Albuterol Sulfate (0.042%) 1.25 Mg/3 Ml Vial.Neb) 1.25 mg INHALE Q4H PRN PRN Reason: shortness of breath or wheezing Albuterol/Ipratropium (Albuterol/Iprat 2.5/0.5mg 3 Ml Ampul.Neb) 3 ml INHALE RQ4H WHILE AWAKE PRN PRN Reason: Shortness of Breath/Wheezing Allopurinol (Allopurinol 100 Mg Tablet) 200 mg PO BEDTIME [facility] Last Admin: 04/12/25 20:16 Dose: 200 mg Documented By: TRACY Atorvastatin Calcium (Atorvastatin Calcium 20 Mg Tablet) 20 mg PO DAILY [facility] Last Admin: 04/13/25 09:15 Dose: 20 mg Documented By: MARCELINA Cyclobenzaprine HCl (Cyclobenzaprine Hcl 5 Mg Tablet) 5 mg PO BEDTIME [facility] Last Admin: 04/12/25 20:17 Dose: 5 mg Documented By: TRACY Dextrose (Dextrose 50 % 25 Gm/50 Ml Syringe) 25 gm IVPUSH Q15M PRN; Protocol PRN Reason: per Hypoglycemia Standing Ord. Gabapentin (Gabapentin 300 Mg Capsule) 900 mg PO BEDTIME [facility] Last Admin: 04/12/25 20:16 Dose: 900 mg Documented By: TRACY Glucose (Glucose Gel 15 Gm Gel..Gram.) 15 gm PO Q15M PRN; Protocol PRN Reason: per Hypoglycemia Standing Ord. Hydromorphone HCl (Hydromorphone Hcl 0.5 Mg/0.5 Ml Syringe) 0.5 mg IVPUSH Q3H PRN; Protocol PRN Reason: Pain, Severe (Pain Scale 7-10) Last Admin: 04/13/25 07:43 Dose: 0.5 mg Documented By: MARCELINA Hydroxychloroquine Sulfate (Hydroxychloroquine Sulfate 200 Mg Tablet) 200 mg PO BID [facility] Last Admin: 04/13/25 09:15 Dose: 200 mg Documented By: MARCELINA Lactated Ringer's (Lr) 1,000 mls @ 100 mls/hr IVCONT .Q10H [facility] Last Admin: 04/13/25 04:13 Dose: 100 mls/hr Documented By: TRACY Piperacillin Sod/Tazobactam (Sod 3.375 gm/ Sodium Chloride) 50 mls @ 100 mls/hr IV Q6H [facility] Last Infusion: 04/13/25 08:26 Dose: Infused Documented By: MARCELINA Acetaminophen (Ofirmev) 1,000 mg in 100 mls @ 400 mls/hr IV Q6H PRN PRN Reason: Pain, Mild (Pain Scale 1-3) Last Infusion: 04/13/25 03:02 Dose: Infused Documented By: TRACY Insulin Human Lispro (Insulin Lispro 100 Unit/Ml 3 Ml Vial) 0 unit SUBCUT Q6H [facility]; Protocol Last Admin: 04/13/25 09:13 Dose: Not Given Documented By: MARCELINA Non-Admin Reason: No Insulin Coverage Levothyroxine Sodium (Levothyroxine Sodium 75 Mcg Tablet) 75 mcg PO DAILY@0600 [facility] Last Admin: 04/13/25 05:37 Dose: 75 mcg Documented By: TRACY Metoprolol Tartrate (Metoprolol Tartrate 25 Mg Tablet) 25 mg PO BID [facility]; Protocol Last Admin: 04/13/25 09:15 Dose: 25 mg Documented By: MARCELINA Ondansetron HCl (Ondansetron Hcl 4 Mg/2 Ml Vial) 4 mg IVPUSH QID PRN PRN Reason: Nausea Last Admin: 04/13/25 04:08 Dose: 4 mg Documented By: TRACY Pantoprazole Sodium (Pantoprazole Sodium 40 Mg/10 Ml Vial) 40 mg IVPUSH BID@0630,1630 [facility] Last Admin: 04/13/25 05:37 Dose: 40 mg Documented By: TRACY Polyethylene Glycol (Polyethylene Glycol 3350 17 Gm Powd.Pack) 17 gm PO DAILY PRN PRN Reason: Constipation Prednisone (Prednisone 5 Mg Tablet) 5 mg PO DAILY [facility] Last Admin: 04/13/25 09:15 Dose: 5 mg Documented By: MARCELINA Senna (Sennosides 8.6 Mg Tablet) 17.2 mg PO BEDTIME [facility] Last Admin: 04/12/25 20:17 Dose: 17.2 mg Documented By: TRACY Sodium Chloride (0.9 % Sodium Chloride Flush 3 Ml Syringe) 3 ml IVFLUSH QSHIFT [facility] Last Admin: 04/13/25 08:26 Dose: Not Given Documented By: MARCELINA Non-Admin Reason: IV Running Zolpidem Tartrate (Zolpidem Tartrate 5 Mg Tablet) 5 mg PO BEDTIME PRN PRN Reason: Insomnia Last Admin: 04/12/25 21:51 Dose: 5 mg Documented By: TRACY Labs 04/13/25 06:40 04/13/25 06:40 Labs: Laboratory Results - last 24 hr 04/12/25 04/12/25 04/12/25 13:06 14:54 20:11 MCV MCH MCHC RDW Plt Count MPV Absolute Nucleated RBC Nucleated RBC % (auto) PT 10.7 L INR 0.9 aPTT Heparin Protocol 26.6 L 114.4 H* D D-Dimer High Sensitivty 427 Anion Gap 13 Estim Creat Clear Calc 37.3 Estimated GFR 34 POC Glucose 166 H Random Glucose 121 H Calcium 8.6 D Troponin I High Sens 13.4 B-Natriuretic Peptide 348 H 04/12/25 04/13/25 04/13/25 20:19 02:56 06:40 MCV 89.7 MCH 29.7 MCHC 33.1 RDW 14.9 Plt Count 226 MPV 10.0 Absolute Nucleated RBC 0.000 Nucleated RBC % (auto) 0.0 PT INR aPTT Heparin Protocol D-Dimer High Sensitivty Anion Gap 11 L Estim Creat Clear Calc 40.1 Estimated GFR 44 POC Glucose 117 H 117 H Random Glucose 107 Calcium 8.1 L Troponin I High Sens B-Natriuretic Peptide 04/13/25 08:35 MCV MCH MCHC RDW Plt Count MPV Absolute Nucleated RBC Nucleated RBC % (auto) PT INR aPTT Heparin Protocol D-Dimer High Sensitivty Anion Gap Estim Creat Clear Calc Estimated GFR POC Glucose 83 Random Glucose Calcium Troponin I High Sens B-Natriuretic Peptide Microbiology Microbiology Results: Microbiology 04/11/25 19:13 Blood Culture - Preliminary Blood - Venous No growth after 24 hours. 04/11/25 19:03 Blood Culture - Preliminary Blood - Venous No growth after 24 hours. Procedures Date of Service Date of Service: 04/13/25 Progress Note: A&P Assessment and plan (1) Pneumoperitoneum: Status: Acute Assessment and Plan: pod#2 s/p explor lap for pneumoperitoneum - no findings of perf -? sealed perf gastric ulcer - pt seen by gi - plan to cont on iv PPI switch to po and then eventually will get gscope as an outpt ? pt with PE - vq scan ? but venous duplex of legs - no lcot and ctangio chest no evidence of PE - ? need to anticoagulate at this pt improving gi function = keep on clear liquids today and advance to soft diet tomorrow med management as per med team. pt seen with hair mixer. Time Spent With Patient Time: Total time managing care of this patient today ____ minutes. Quality Stroke Does the patient have a stroke diagnosis?: No VTE Prior VTE?: No VTE Risk Level:: Surgical - moderate VTE Device Contraindication: N/A - Device Ordered VTE Drug Contraindication: Treatment Not Indicated
[2025-04-13] MEDS: Albuterol/Iprat 2.5/0.5MG 3 ML AMPUL.NEB INHALE (14:51)
--- NOTE | 2025-04-13 15:00 | PC.NURSE ---
Toro cath removed cristofer Hobson at 1500. DTV at 2100
[2025-04-13 15:25] VITALS: BP 145/86; PULSE 88; RESP 16; TEMP 36.1; O2SAT 96
[2025-04-13 16:32] LABS: Glucose, Whole Blood 108 mg/dL (60-115)
--- NOTE | 2025-04-13 16:35 | P.PNIM_ITS ---
Subjective Subjective Date of Service: 04/13/25 Interval History: No acute issues overnight no active bleeding Review of Systems Denies chest pain Denies shortness of breath Denies nausea vomiting diarrhea Denies fever chills Physical Exam 2 Vital Signs: Vital Signs: Last Vital Signs Temp 96.9 F 04/13/25 15:25 Pulse 88 04/13/25 15:25 Resp 16 04/13/25 15:25 BP 145/86 H 04/13/25 15:25 Pulse Ox 96 04/13/25 15:25 O2 Del Method Room Air 04/13/25 15:25 O2 Flow Rate 1 04/13/25 03:31 BMI result Body Mass Index 25.9 Const: Other: Awake alert no acute distress Resp: Other: Clear to auscultation bilaterally no rales rhonchi or wheezes Cardio: Other: No S4; positive S1-S2; no S3 murmurs rubs or gallops GI: Other: Soft nontender nondistended normoactive bowel sounds Extrem: Other: No edema bilaterally Objective Data Active Medications Albuterol Sulfate (Albuterol Sulfate 90 Mcg 8 Gm Inhaler) 2 puff INHALE Q6H PRN PRN Reason: wheezing Albuterol Sulfate (Albuterol Sulfate (0.042%) 1.25 Mg/3 Ml Vial.Neb) 1.25 mg INHALE Q4H PRN PRN Reason: shortness of breath or wheezing Albuterol/Ipratropium (Albuterol/Iprat 2.5/0.5mg 3 Ml Ampul.Neb) 3 ml INHALE RQ4H WHILE AWAKE PRN PRN Reason: Shortness of Breath/Wheezing Last Admin: 04/13/25 14:51 Dose: 3 ml Documented By: MARCELINA Allopurinol (Allopurinol 100 Mg Tablet) 200 mg PO BEDTIME [facility] Last Admin: 04/12/25 20:16 Dose: 200 mg Documented By: TRACY Atorvastatin Calcium (Atorvastatin Calcium 20 Mg Tablet) 20 mg PO DAILY [facility] Last Admin: 04/13/25 09:15 Dose: 20 mg Documented By: MARCELINA Cyclobenzaprine HCl (Cyclobenzaprine Hcl 5 Mg Tablet) 5 mg PO BEDTIME [facility] Last Admin: 04/12/25 20:17 Dose: 5 mg Documented By: TRACY Dextrose (Dextrose 50 % 25 Gm/50 Ml Syringe) 25 gm IVPUSH Q15M PRN; Protocol PRN Reason: per Hypoglycemia Standing Ord. Gabapentin (Gabapentin 300 Mg Capsule) 900 mg PO BEDTIME [facility] Last Admin: 04/12/25 20:16 Dose: 900 mg Documented By: TRACY Glucose (Glucose Gel 15 Gm Gel..Gram.) 15 gm PO Q15M PRN; Protocol PRN Reason: per Hypoglycemia Standing Ord. Hydromorphone HCl (Hydromorphone Hcl 0.5 Mg/0.5 Ml Syringe) 0.5 mg IVPUSH Q3H PRN; Protocol PRN Reason: Pain, Severe (Pain Scale 7-10) Last Admin: 04/13/25 14:51 Dose: 0.5 mg Documented By: MARCELINA Hydroxychloroquine Sulfate (Hydroxychloroquine Sulfate 200 Mg Tablet) 200 mg PO BID [facility] Last Admin: 04/13/25 09:15 Dose: 200 mg Documented By: MARCELINA Lactated Ringer's (Lr) 1,000 mls @ 100 mls/hr IVCONT .Q10H [facility] Last Admin: 04/13/25 14:44 Dose: 100 mls/hr Documented By: MARCELINA Piperacillin Sod/Tazobactam (Sod 3.375 gm/ Sodium Chloride) 50 mls @ 100 mls/hr IV Q6H [facility] Last Infusion: 04/13/25 15:20 Dose: Infused Documented By: MARCELINA Acetaminophen (Ofirmev) 1,000 mg in 100 mls @ 400 mls/hr IV Q6H PRN PRN Reason: Pain, Mild (Pain Scale 1-3) Last Infusion: 04/13/25 03:02 Dose: Infused Documented By: TRACY Insulin Human Lispro (Insulin Lispro 100 Unit/Ml 3 Ml Vial) 0 unit SUBCUT Q6H [facility]; Protocol Last Admin: 04/13/25 09:13 Dose: Not Given Documented By: MARCELINA Non-Admin Reason: No Insulin Coverage Levothyroxine Sodium (Levothyroxine Sodium 75 Mcg Tablet) 75 mcg PO DAILY@0600 [facility] Last Admin: 04/13/25 05:37 Dose: 75 mcg Documented By: TRACY Metoprolol Tartrate (Metoprolol Tartrate 25 Mg Tablet) 25 mg PO BID [facility]; Protocol Last Admin: 04/13/25 09:15 Dose: 25 mg Documented By: MARCELINA Ondansetron HCl (Ondansetron Hcl 4 Mg/2 Ml Vial) 4 mg IVPUSH QID PRN PRN Reason: Nausea Last Admin: 04/13/25 04:08 Dose: 4 mg Documented By: TRCAY Pantoprazole Sodium (Pantoprazole Sodium 40 Mg/10 Ml Vial) 40 mg IVPUSH BID@0630,1630 [facility] Last Admin: 04/13/25 05:37 Dose: 40 mg Documented By: TRACY Polyethylene Glycol (Polyethylene Glycol 3350 17 Gm Powd.Pack) 17 gm PO DAILY PRN PRN Reason: Constipation Prednisone (Prednisone 5 Mg Tablet) 5 mg PO DAILY [facility] Last Admin: 04/13/25 09:15 Dose: 5 mg Documented By: MARCELINA Senna (Sennosides 8.6 Mg Tablet) 17.2 mg PO BEDTIME [facility] Last Admin: 04/12/25 20:17 Dose: 17.2 mg Documented By: TRACY Sodium Chloride (0.9 % Sodium Chloride Flush 3 Ml Syringe) 3 ml IVFLUSH QSHIFT [facility] Last Admin: 04/13/25 08:26 Dose: Not Given Documented By: MARCELINA Non-Admin Reason: IV Running Zolpidem Tartrate (Zolpidem Tartrate 5 Mg Tablet) 5 mg PO BEDTIME PRN PRN Reason: Insomnia Last Admin: 04/12/25 21:51 Dose: 5 mg Documented By: TRACY Labs 04/13/25 06:40 04/13/25 06:40 Labs: Laboratory Results - last 24 hr 04/12/25 04/12/25 04/13/25 20:11 20:19 02:56 MCV MCH MCHC RDW Plt Count MPV Absolute Nucleated RBC Nucleated RBC % (auto) aPTT Heparin Protocol 114.4 H* D Anion Gap Estim Creat Clear Calc Estimated GFR POC Glucose 117 H 117 H Random Glucose Calcium 04/13/25 04/13/25 04/13/25 06:40 08:35 16:28 MCV 89.7 MCH 29.7 MCHC 33.1 RDW 14.9 Plt Count 226 MPV 10.0 Absolute Nucleated RBC 0.000 Nucleated RBC % (auto) 0.0 aPTT Heparin Protocol Anion Gap 11 L Estim Creat Clear Calc 40.1 Estimated GFR 44 POC Glucose 83 108 Random Glucose 107 Calcium 8.1 L Microbiology Microbiology Results: Microbiology 04/11/25 19:13 Blood Culture - Preliminary Blood - Venous No growth after 24 hours. 04/11/25 19:03 Blood Culture - Preliminary Blood - Venous No growth after 24 hours. Assessment and Plan (1) Gastric ulcer: Status: Acute (2) Diabetes type 2, uncontrolled: Status: Acute (3) Seronegative rheumatoid arthritis: Status: Acute Plan 64yo F with SLE/RA on chronic prednisone 5 mg/d, CKD4, gout, HTN, asthma, hypothyroidism, CPAP, and DM2, s/p ex-lap for suspicion of perforated viscus, found to have gastric ulcer with clot, no active perforation; medicine consult for management of comorbid conditions 1.Gastric ulcer -hemoglobin stable overnight; no active bleeding -advance diet as per surgery 2.DONI/CKD4 -responded to volume - holding irbesartan and furosemide -follow renals/divalent 3.Steroid-dependent SLE/RA - continue hydroxychloroquine - got 80 mg IV methylprednisolone preop for stress dose; give 10 mg IV methylprednisolone today and resume usual 5 mg/d prednisone tomorrow hypothyroidism 4.Asthma -stable and well compensated 5.HTN -acceptable control on current therapies -adjust as indicated 6.DM2 -acceptable control.... Hold Ozempic -lispro correctional scale -adjust as indicated VTE ppx - heparin when OK with surgery Thank you for this consultation. We will continue to follow the patient while they are admitted to your service. Quality Stroke Does the patient have a stroke diagnosis?: No VTE Prior VTE?: No VTE Risk Level:: Surgical - moderate VTE Device Contraindication: N/A - Device Ordered VTE Drug Contraindication: Treatment Not Indicated
--- NOTE | 2025-04-13 19:13 | PC.NURSE ---
Pt voided 500 cc post milian cath removal, pts PVR was 0
[2025-04-13 20:06] VITALS: BP 160/69; PULSE 90; RESP 20; TEMP 37.2; O2SAT 94
[2025-04-13] MEDS: allopurinoL 100 MG TABLET 200 MG PO (20:09)
[2025-04-13] MEDS: Cyclobenzaprine HCl 5 MG TABLET PO (20:09)
[2025-04-13] MEDS: Gabapentin 300 MG CAPSULE 900 MG PO (20:09)
[2025-04-13] MEDS: Sennosides 8.6 MG TABLET 17.2 MG PO (20:10)
[2025-04-13] MEDS: 0.9 % Sodium Chloride Flush 3 ML SYRINGE IVFLUSH (20:11)
[2025-04-13 20:46] LABS: Glucose, Whole Blood 76 mg/dL (60-115)
[2025-04-14] MEDS: Acetaminophen 1,000 MG/100 ML PIGGYBACK 400 MG IV (01:56)
[2025-04-14] MEDS: Piperacillin Sodium/Tazobactam 3.375 GM in 0.9 % Sodium Chloride 50 ML IV ×4 (01:57→20:45)
[2025-04-14 02:32] LABS: Glucose, Whole Blood 78 mg/dL (60-115)
[2025-04-14 02:38] VITALS: BP 117/70; PULSE 80; RESP 18; TEMP 37.5; O2SAT 99
[2025-04-14] MEDS: HYDROmorphone HCl 0.5 MG/0.5 ML SYRINGE IVPUSH ×3 (02:44→20:47)
[2025-04-14] MEDS: Pantoprazole Sodium 40 MG/10 ML VIAL IVPUSH ×2 (05:55→15:38)
[2025-04-14] MEDS: Levothyroxine Sodium 75 MCG TABLET PO (05:55)
[2025-04-14 06:36] LABS: MANUAL DIFF FLAG NO
[2025-04-14 06:47] LABS: Basophils Percent Auto 0.2 % (0-2); Eosinophils Absolute Auto 0.3 X10*3/uL (0.0-0.4); Eosinophils Percent Auto 2.5 % (0-4); Hematocrit 29.9 % (37.0-47.0); Hemoglobin 9.9 g/dl (12.0-16.0); Imm Gran Abs Auto 0.05 X10*3/uL (0.00-0.03); Imm Gran Pct Auto 0.4 % (0.0-0.4); Lymphocytes Absolute Auto 2.7 X10*3/uL (1.2-4.9); Lymphocytes Percent Auto 22.3 % (20-40); Mean Corpuscular HGB Conc 33.1 g/dl (31.0-35.0); Mean Corpuscular Hemoglobin 29.6 pg (27.0-33.0); Mean Corpuscular Volume 89.5 fL (80.0-98.0); Mean Platelet Volume 10.1 fL (9.4-12.3); Monocytes Absolute Auto 1.3 X10*3/uL (0.1-1.2); Monocytes Percent Auto 10.8 % (2-11); Neutrophils Absolute Auto 7.7 x10*3/uL (2.0-8.3); Neutrophils Percent Auto 63.8 % (45-73); Platelet Count 222 X10*3/uL (160-400); Red Blood Count 3.34 X10*6/uL (4.20-5.50)
[2025-04-14 06:53] LABS: Alanine Aminotransferase 17 U/L (0-31); Albumin Level 2.9 g/dL (3.5-5.0); Alkaline Phosphatase 31 U/L (39-117); Anion Gap 10 (12-20); Aspartate Amino Transferase 37 U/L (5-31); Bilirubin Total 0.5 mg/dL (0.0-1.0); Blood Urea Nitrogen 11 mg/dL (9-16); Calcium 8.3 mg/dL (8.4-10.2); Carbon Dioxide 25 mmol/L (22-29); Chloride 112 mmol/L (96-108); Creatinine Clr Calc Pharmacy 38.5; Estimated Glomerular Filt Rate 42; Glucose Fasting 84 mg/dL (60-99); Potassium 3.9 mmol/L (3.3-5.1); Sodium 143 mmol/L (135-145); Total Protein 5.4 g/dL (6.5-8.0)
[2025-04-14 07:28] VITALS: BP 130/69; PULSE 75; RESP 16; TEMP 37.4; O2SAT 95
[2025-04-14 08:40] VITALS: BP 130/69
[2025-04-14] MEDS: Atorvastatin Calcium 20 MG TABLET PO (08:40)
[2025-04-14] MEDS: Metoprolol Tartrate 25 MG TABLET PO ×2 (08:40→20:46)
[2025-04-14] MEDS: predniSONE 5 MG TABLET PO (08:41)
[2025-04-14] MEDS: Hydroxychloroquine Sulfate 200 MG TABLET PO ×2 (08:41→20:46)
[2025-04-14 09:03] LABS: Glucose, Whole Blood 79 mg/dL (60-115)
[2025-04-14] MEDS: Albuterol/Iprat 2.5/0.5MG 3 ML AMPUL.NEB INHALE (09:32)
--- NOTE | 2025-04-14 12:53 | PM.PNGS ---
Subjective Subjective Date of Service: 04/14/25 Interval history: Patient is doing okay feeling better passing gas no abdominal pain. Toro catheter came out yesterday and she is urinating. Physical Exam Vital Signs: Vital Signs: Last Vital Signs Temp 99.3 F 04/14/25 07:28 Pulse 75 04/14/25 07:28 Resp 16 04/14/25 07:28 BP 130/69 04/14/25 08:40 Pulse Ox 95 04/14/25 07:28 O2 Del Method Room Air 04/14/25 07:28 O2 Flow Rate 1 04/13/25 03:31 BMI result Body Mass Index 25.9 Const: General: cooperative, healthy appearing, comfortable and no acute distress Resp: Effort & Inspection: normal respiratory effort GI: Other: Abdomen is soft still distended but maybe a little less so than yesterday has bowel sounds nontender Objective Data Active Medications Albuterol Sulfate (Albuterol Sulfate 90 Mcg 8 Gm Inhaler) 2 puff INHALE Q6H PRN PRN Reason: wheezing Albuterol Sulfate (Albuterol Sulfate (0.042%) 1.25 Mg/3 Ml Vial.Neb) 1.25 mg INHALE Q4H PRN PRN Reason: shortness of breath or wheezing Albuterol/Ipratropium (Albuterol/Iprat 2.5/0.5mg 3 Ml Ampul.Neb) 3 ml INHALE RQ4H WHILE AWAKE PRN PRN Reason: Shortness of Breath/Wheezing Last Admin: 04/14/25 09:32 Dose: 3 ml Documented By: MARCELINA Allopurinol (Allopurinol 100 Mg Tablet) 200 mg PO BEDTIME [facility] Last Admin: 04/13/25 20:09 Dose: 200 mg Documented By: TRACY Atorvastatin Calcium (Atorvastatin Calcium 20 Mg Tablet) 20 mg PO DAILY [facility] Last Admin: 04/14/25 08:40 Dose: 20 mg Documented By: MARCELINA Cyclobenzaprine HCl (Cyclobenzaprine Hcl 5 Mg Tablet) 5 mg PO BEDTIME [facility] Last Admin: 04/13/25 20:09 Dose: 5 mg Documented By: TRACY Dextrose (Dextrose 50 % 25 Gm/50 Ml Syringe) 25 gm IVPUSH Q15M PRN; Protocol PRN Reason: per Hypoglycemia Standing Ord. Gabapentin (Gabapentin 300 Mg Capsule) 900 mg PO BEDTIME [facility] Last Admin: 04/13/25 20:09 Dose: 900 mg Documented By: TRACY Glucose (Glucose Gel 15 Gm Gel..Gram.) 15 gm PO Q15M PRN; Protocol PRN Reason: per Hypoglycemia Standing Ord. Hydromorphone HCl (Hydromorphone Hcl 0.5 Mg/0.5 Ml Syringe) 0.5 mg IVPUSH Q3H PRN; Protocol PRN Reason: Pain, Severe (Pain Scale 7-10) Last Admin: 04/14/25 09:33 Dose: 0.5 mg Documented By: MARCELINA Hydroxychloroquine Sulfate (Hydroxychloroquine Sulfate 200 Mg Tablet) 200 mg PO BID [facility] Last Admin: 04/14/25 08:41 Dose: 200 mg Documented By: MARCELINA Piperacillin Sod/Tazobactam (Sod 3.375 gm/ Sodium Chloride) 50 mls @ 100 mls/hr IV Q6H [facility] Last Infusion: 04/14/25 09:32 Dose: Infused Documented By: MARCELINA Acetaminophen (Ofirmev) 1,000 mg in 100 mls @ 400 mls/hr IV Q6H PRN PRN Reason: Pain, Mild (Pain Scale 1-3) Last Infusion: 04/14/25 02:11 Dose: Infused Documented By: TRACY Insulin Human Lispro (Insulin Lispro 100 Unit/Ml 3 Ml Vial) 0 unit SUBCUT Q6H [facility]; Protocol Last Admin: 04/14/25 09:35 Dose: Not Given Documented By: MARCELINA Non-Admin Reason: No Insulin Coverage Levothyroxine Sodium (Levothyroxine Sodium 75 Mcg Tablet) 75 mcg PO DAILY@0600 [facility] Last Admin: 04/14/25 05:55 Dose: 75 mcg Documented By: TRACY Metoprolol Tartrate (Metoprolol Tartrate 25 Mg Tablet) 25 mg PO BID [facility]; Protocol Last Admin: 04/14/25 08:40 Dose: 25 mg Documented By: MARCELINA Ondansetron HCl (Ondansetron Hcl 4 Mg/2 Ml Vial) 4 mg IVPUSH QID PRN PRN Reason: Nausea Last Admin: 04/13/25 04:08 Dose: 4 mg Documented By: TRACY Pantoprazole Sodium (Pantoprazole Sodium 40 Mg/10 Ml Vial) 40 mg IVPUSH BID@0630,1630 [facility] Last Admin: 04/14/25 05:55 Dose: 40 mg Documented By: TRACY Polyethylene Glycol (Polyethylene Glycol 3350 17 Gm Powd.Pack) 17 gm PO DAILY PRN PRN Reason: Constipation Prednisone (Prednisone 5 Mg Tablet) 5 mg PO DAILY [facility] Last Admin: 04/14/25 08:41 Dose: 5 mg Documented By: MARCELINA Senna (Sennosides 8.6 Mg Tablet) 17.2 mg PO BEDTIME [facility] Last Admin: 04/13/25 20:10 Dose: 17.2 mg Documented By: TRACY Sodium Chloride (0.9 % Sodium Chloride Flush 3 Ml Syringe) 3 ml IVFLUSH QSHIFT [facility] Last Admin: 04/14/25 08:38 Dose: Not Given Documented By: MARCELINA Non-Admin Reason: IV Running Zolpidem Tartrate (Zolpidem Tartrate 5 Mg Tablet) 5 mg PO BEDTIME PRN PRN Reason: Insomnia Last Admin: 04/12/25 21:51 Dose: 5 mg Documented By: TRACY Labs 04/14/25 06:05 04/14/25 06:05 Labs: Laboratory Results - last 24 hr 04/13/25 04/13/25 04/14/25 16:28 20:34 02:28 MCV MCH MCHC RDW Plt Count MPV Immature Gran % (Auto) Neut % (Auto) Lymph % (Auto) [place] % (Auto) Eos % (Auto) Baso % (Auto) Lymph # (Auto) [place] # (Auto) Eos # (Auto) Baso # (Auto) Abs Immat Gran (auto) Absolute Neuts (auto) Absolute Nucleated RBC Nucleated RBC % (auto) Anion Gap Estim Creat Clear Calc Estimated GFR POC Glucose 108 76 78 Fasting Glucose Calcium Total Bilirubin AST ALT Alkaline Phosphatase Total Protein Albumin 04/14/25 04/14/25 06:05 08:59 MCV 89.5 MCH 29.6 MCHC 33.1 RDW 15.0 Plt Count 222 MPV 10.1 Immature Gran % (Auto) 0.4 Neut % (Auto) 63.8 Lymph % (Auto) 22.3 [place] % (Auto) 10.8 Eos % (Auto) 2.5 Baso % (Auto) 0.2 Lymph # (Auto) 2.7 [place] # (Auto) 1.3 H Eos # (Auto) 0.3 Baso # (Auto) 0.0 Abs Immat Gran (auto) 0.05 H Absolute Neuts (auto) 7.7 Absolute Nucleated RBC 0.000 Nucleated RBC % (auto) 0.0 Anion Gap 10 L Estim Creat Clear Calc 38.5 Estimated GFR 42 POC Glucose 79 Fasting Glucose 84 Calcium 8.3 L Total Bilirubin 0.5 AST 37 H ALT 17 Alkaline Phosphatase 31 L Total Protein 5.4 L Albumin 2.9 L Microbiology Microbiology Results: Microbiology 04/11/25 19:13 Blood Culture - Preliminary Blood - Venous No growth after 48 hours. 04/11/25 19:03 Blood Culture - Preliminary Blood - Venous No growth after 48 hours. Procedures Date of Service Date of Service: 04/14/25 Progress Note: A&P Assessment and plan (1) Pneumoperitoneum: Status: Acute Assessment and Plan: 64-year-old female with pneumoperitoneum negative exploratory laparotomy. Workup afterwards irrigated any evidence of pulmonary embolism. Patient has dropped her hemoglobin a little bit unsure if this is just dilutional no evidence of any bleeding. At this point plan to slowly advance her diet and re-evaluate tomorrow. If everything is good could plan for discharge. She may benefit from outpatient EGD in a few weeks. Appreciate medical team following along Time Spent With Patient Time: Total time managing care of this patient today ____ minutes. Quality Stroke Does the patient have a stroke diagnosis?: No VTE Prior VTE?: No VTE Risk Level:: Surgical - moderate VTE Device Contraindication: N/A - Device Ordered VTE Drug Contraindication: Treatment Not Indicated
--- NOTE | 2025-04-14 13:47 | P.PNIM_ITS ---
Subjective Subjective Date of Service: 04/14/25 Interval History: Feels better today. No active bleeding noted. Complains of productive cough Review of Systems Denies chest pain Denies shortness of breath Denies nausea vomiting diarrhea Denies fever chills Physical Exam 2 Vital Signs: Vital Signs: Last Vital Signs Temp 99.3 F 04/14/25 07:28 Pulse 75 04/14/25 07:28 Resp 16 04/14/25 07:28 BP 130/69 04/14/25 08:40 Pulse Ox 95 04/14/25 07:28 O2 Del Method Room Air 04/14/25 07:28 O2 Flow Rate 1 04/13/25 03:31 BMI result Body Mass Index 25.9 Const: Other: Awake alert no acute distress Resp: Other: Clear to auscultation bilaterally no rales rhonchi or wheezes Cardio: Other: No S4; positive S1-S2; no S3 murmurs rubs or gallops GI: Other: Soft nontender nondistended normoactive bowel sounds Extrem: Other: No edema bilaterally Objective Data Active Medications Albuterol Sulfate (Albuterol Sulfate 90 Mcg 8 Gm Inhaler) 2 puff INHALE Q6H PRN PRN Reason: wheezing Albuterol Sulfate (Albuterol Sulfate (0.042%) 1.25 Mg/3 Ml Vial.Neb) 1.25 mg INHALE Q4H PRN PRN Reason: shortness of breath or wheezing Albuterol/Ipratropium (Albuterol/Iprat 2.5/0.5mg 3 Ml Ampul.Neb) 3 ml INHALE RQ4H WHILE AWAKE PRN PRN Reason: Shortness of Breath/Wheezing Last Admin: 04/14/25 09:32 Dose: 3 ml Documented By: MARCELINA Allopurinol (Allopurinol 100 Mg Tablet) 200 mg PO BEDTIME [facility] Last Admin: 04/13/25 20:09 Dose: 200 mg Documented By: TRACY Atorvastatin Calcium (Atorvastatin Calcium 20 Mg Tablet) 20 mg PO DAILY [facility] Last Admin: 04/14/25 08:40 Dose: 20 mg Documented By: MARCELINA Cyclobenzaprine HCl (Cyclobenzaprine Hcl 5 Mg Tablet) 5 mg PO BEDTIME [facility] Last Admin: 04/13/25 20:09 Dose: 5 mg Documented By: TRACY Dextrose (Dextrose 50 % 25 Gm/50 Ml Syringe) 25 gm IVPUSH Q15M PRN; Protocol PRN Reason: per Hypoglycemia Standing Ord. Gabapentin (Gabapentin 300 Mg Capsule) 900 mg PO BEDTIME [facility] Last Admin: 04/13/25 20:09 Dose: 900 mg Documented By: TRACY Glucose (Glucose Gel 15 Gm Gel..Gram.) 15 gm PO Q15M PRN; Protocol PRN Reason: per Hypoglycemia Standing Ord. Hydromorphone HCl (Hydromorphone Hcl 0.5 Mg/0.5 Ml Syringe) 0.5 mg IVPUSH Q3H PRN; Protocol PRN Reason: Pain, Severe (Pain Scale 7-10) Last Admin: 04/14/25 09:33 Dose: 0.5 mg Documented By: MARCELINA Hydroxychloroquine Sulfate (Hydroxychloroquine Sulfate 200 Mg Tablet) 200 mg PO BID [facility] Last Admin: 04/14/25 08:41 Dose: 200 mg Documented By: MARCELINA Piperacillin Sod/Tazobactam (Sod 3.375 gm/ Sodium Chloride) 50 mls @ 100 mls/hr IV Q6H [facility] Last Infusion: 04/14/25 09:32 Dose: Infused Documented By: MARCELINA Acetaminophen (Ofirmev) 1,000 mg in 100 mls @ 400 mls/hr IV Q6H PRN PRN Reason: Pain, Mild (Pain Scale 1-3) Last Infusion: 04/14/25 02:11 Dose: Infused Documented By: TRACY Insulin Human Lispro (Insulin Lispro 100 Unit/Ml 3 Ml Vial) 0 unit SUBCUT Q6H [facility]; Protocol Last Admin: 04/14/25 09:35 Dose: Not Given Documented By: MARCELINA Non-Admin Reason: No Insulin Coverage Levothyroxine Sodium (Levothyroxine Sodium 75 Mcg Tablet) 75 mcg PO DAILY@0600 [facility] Last Admin: 04/14/25 05:55 Dose: 75 mcg Documented By: TRACY Metoprolol Tartrate (Metoprolol Tartrate 25 Mg Tablet) 25 mg PO BID [facility]; Protocol Last Admin: 04/14/25 08:40 Dose: 25 mg Documented By: MARCELINA Ondansetron HCl (Ondansetron Hcl 4 Mg/2 Ml Vial) 4 mg IVPUSH QID PRN PRN Reason: Nausea Last Admin: 04/13/25 04:08 Dose: 4 mg Documented By: TRACY Pantoprazole Sodium (Pantoprazole Sodium 40 Mg/10 Ml Vial) 40 mg IVPUSH BID@0630,1630 [facility] Last Admin: 04/14/25 05:55 Dose: 40 mg Documented By: TRACY Polyethylene Glycol (Polyethylene Glycol 3350 17 Gm Powd.Pack) 17 gm PO DAILY PRN PRN Reason: Constipation Prednisone (Prednisone 5 Mg Tablet) 5 mg PO DAILY [facility] Last Admin: 04/14/25 08:41 Dose: 5 mg Documented By: MARCELINA Senna (Sennosides 8.6 Mg Tablet) 17.2 mg PO BEDTIME [facility] Last Admin: 04/13/25 20:10 Dose: 17.2 mg Documented By: TRACY Sodium Chloride (0.9 % Sodium Chloride Flush 3 Ml Syringe) 3 ml IVFLUSH QSHIFT [facility] Last Admin: 04/14/25 08:38 Dose: Not Given Documented By: MARCELINA Non-Admin Reason: IV Running Zolpidem Tartrate (Zolpidem Tartrate 5 Mg Tablet) 5 mg PO BEDTIME PRN PRN Reason: Insomnia Last Admin: 04/12/25 21:51 Dose: 5 mg Documented By: TRACY Labs 04/14/25 06:05 04/14/25 06:05 Labs: Laboratory Results - last 24 hr 04/13/25 04/13/25 04/14/25 16:28 20:34 02:28 MCV MCH MCHC RDW Plt Count MPV Immature Gran % (Auto) Neut % (Auto) Lymph % (Auto) [place] % (Auto) Eos % (Auto) Baso % (Auto) Lymph # (Auto) [place] # (Auto) Eos # (Auto) Baso # (Auto) Abs Immat Gran (auto) Absolute Neuts (auto) Absolute Nucleated RBC Nucleated RBC % (auto) Anion Gap Estim Creat Clear Calc Estimated GFR POC Glucose 108 76 78 Fasting Glucose Calcium Total Bilirubin AST ALT Alkaline Phosphatase Total Protein Albumin 04/14/25 04/14/25 06:05 08:59 MCV 89.5 MCH 29.6 MCHC 33.1 RDW 15.0 Plt Count 222 MPV 10.1 Immature Gran % (Auto) 0.4 Neut % (Auto) 63.8 Lymph % (Auto) 22.3 [place] % (Auto) 10.8 Eos % (Auto) 2.5 Baso % (Auto) 0.2 Lymph # (Auto) 2.7 [place] # (Auto) 1.3 H Eos # (Auto) 0.3 Baso # (Auto) 0.0 Abs Immat Gran (auto) 0.05 H Absolute Neuts (auto) 7.7 Absolute Nucleated RBC 0.000 Nucleated RBC % (auto) 0.0 Anion Gap 10 L Estim Creat Clear Calc 38.5 Estimated GFR 42 POC Glucose 79 Fasting Glucose 84 Calcium 8.3 L Total Bilirubin 0.5 AST 37 H ALT 17 Alkaline Phosphatase 31 L Total Protein 5.4 L Albumin 2.9 L Microbiology Microbiology Results: Microbiology 04/11/25 19:13 Blood Culture - Preliminary Blood - Venous No growth after 48 hours. 04/11/25 19:03 Blood Culture - Preliminary Blood - Venous No growth after 48 hours. Assessment and Plan (1) Gastric ulcer: Status: Acute (2) Pneumoperitoneum: Status: Acute (3) DONI (acute kidney injury): Status: Acute Plan 64yo F with SLE/RA on chronic prednisone 5 mg/d, CKD4, gout, HTN, asthma, hypothyroidism, CPAP, and DM2, s/p ex-lap for suspicion of perforated viscus, found to have gastric ulcer with clot, no active perforation; medicine consult for management of comorbid conditions 1.Gastric ulcer -hemoglobin Hgb 11.809.9 .. no active bleeding -advanced diet as per surgery -continue pantoprazole as ordered IV -await surgical input 2.DONI/CKD4 -responded to volume -holding irbesartan and furosemide -follow renals/divalent 3.Steroid-dependent SLE/RA - continue hydroxychloroquine - got 80 mg IV methylprednisolone preop for stress dose; give 10 mg IV methylprednisolone today and resume usual 5 mg/d prednisone tomorrow hypothyroidism 4.Asthma -stable and well compensated 5.HTN -acceptable control off current therapies -adjust as indicated 6.DM2 -acceptable control.... Hold Ozempic -lispro correctional scale -adjust as indicated VTE ppx - heparin when OK with surgery Thank you for this consultation. We will continue to follow the patient while they are admitted to your service. Quality Stroke Does the patient have a stroke diagnosis?: No VTE Prior VTE?: No VTE Risk Level:: Surgical - moderate VTE Device Contraindication: N/A - Device Ordered VTE Drug Contraindication: Treatment Not Indicated
[2025-04-14 15:03] LABS: Glucose, Whole Blood 112 mg/dL (60-115)
[2025-04-14 15:24] VITALS: BP 148/90; PULSE 77; RESP 16; TEMP 37.2; O2SAT 100
[2025-04-14] MEDS: 0.9 % Sodium Chloride Flush 3 ML SYRINGE IVFLUSH ×2 (15:38→20:46)
[2025-04-14 19:39] LABS: Glucose, Whole Blood 122 mg/dL (60-115)
[2025-04-14 19:51] VITALS: BP 152/86; PULSE 85; RESP 18; TEMP 36.3; O2SAT 99
[2025-04-14] MEDS: Cyclobenzaprine HCl 5 MG TABLET PO (20:46)
[2025-04-14] MEDS: Gabapentin 300 MG CAPSULE 900 MG PO (20:46)
[2025-04-14] MEDS: Sennosides 8.6 MG TABLET 17.2 MG PO (20:46)
[2025-04-14] MEDS: allopurinoL 100 MG TABLET 200 MG PO (20:46)
[2025-04-15] MEDS: Piperacillin Sodium/Tazobactam 3.375 GM in 0.9 % Sodium Chloride 50 ML IV ×4 (02:49→20:03)
[2025-04-15 02:56] LABS: Glucose, Whole Blood 90 mg/dL (60-115)
[2025-04-15 03:58] VITALS: BP 143/86; PULSE 80; RESP 18; TEMP 36.3; O2SAT 100
[2025-04-15] MEDS: Levothyroxine Sodium 75 MCG TABLET PO (05:29)
[2025-04-15 07:45] LABS: Glucose, Whole Blood 81 mg/dL (60-115)
[2025-04-15 07:48] VITALS: BP 167/82; PULSE 63; RESP 16; TEMP 37.4; O2SAT 99
[2025-04-15] MEDS: Metoprolol Tartrate 25 MG TABLET PO ×2 (08:20→20:00)
[2025-04-15] MEDS: Atorvastatin Calcium 20 MG TABLET PO (08:20)
[2025-04-15] MEDS: Hydroxychloroquine Sulfate 200 MG TABLET PO ×2 (08:20→19:59)
[2025-04-15] MEDS: predniSONE 5 MG TABLET PO (08:20)
[2025-04-15] MEDS: 0.9 % Sodium Chloride Flush 3 ML SYRINGE IVFLUSH ×3 (08:23→20:03)
--- NOTE | 2025-04-15 08:27 | P.PNNP_ITS ---
Subjective Subjective Date of Service: 04/15/25 Interval history: Feels better today. No active bleeding noted. Complains of productive cough Physical Exam 2 Vital Signs: Vital Signs: Last Vital Signs Temp 99.3 F 04/15/25 07:48 Pulse 63 04/15/25 07:48 Resp 16 04/15/25 07:48 BP 167/82 H 04/15/25 07:48 Pulse Ox 99 04/15/25 07:48 O2 Del Method Room Air 04/15/25 07:48 O2 Flow Rate 2 04/14/25 15:24 BMI result Body Mass Index 25.9 cvs: s1s2 Rs; cta Abd; soft Objective Data Labs 04/15/25 11:41 04/14/25 06:05 Labs: Laboratory Results - last 24 hr 04/14/25 04/14/25 04/14/25 08:59 14:59 19:23 POC Glucose 79 112 122 H 04/15/25 04/15/25 02:50 07:42 POC Glucose 90 81 Microbiology Microbiology Results: Microbiology 04/11/25 19:13 Blood - Venous Blood Culture - Preliminary No growth after 48 hours. 04/11/25 19:03 Blood - Venous Blood Culture - Preliminary No growth after 48 hours. Procedures Date of Service Date of Service: 04/15/25 Assessment & Plan Assessment and plan (1) DONI (acute kidney injury): Status: Acute (2) Positive PHYLLIS (antinuclear antibody): Status: Acute (3) CKD stage 3a, GFR 45-59 ml/min: Status: Acute Assessment and Plan: 64yo F with SLE/RA on chronic prednisone 5 mg/d, CKD4, gout, HTN, asthma, hypothyroidism, CPAP, and DM2, s/p ex-lap for suspicion of perforated viscus, found to have gastric ulcer with clot, no active perforation DONI: peak SCr 1.9 resolved wth IVF c/w pre-renal CKD 3: c/w DN/HTN renal dis DM HTN CVDz: as per noted on meds and f/u with Rheum REC: cont IVF untl taking PO, ok to resume ARB at dc, avoid NSAIDs, may need rheum f/u if flare of Rheum Dz is a concern s Time Spent With Patient Time: Total time managing care of this patient today ____ minutes. Progress Note: Quality Stroke Does the patient have a stroke diagnosis?: No
--- NOTE | 2025-04-15 09:51 | PM.PNGS ---
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 Patient reports she is doing well, pain is well controlled. Denies nausea, vomiting. Denies fever or chills. She is tolerating regular diet. No bowel movement at this time, she is passing gas. Patient is ambulating as tolerated Physical Exam Vital Signs: Vital Signs: Last Vital Signs Temp 99.3 F 04/15/25 07:48 Pulse 63 04/15/25 07:48 Resp 16 04/15/25 07:48 BP 167/82 H 04/15/25 07:48 Pulse Ox 99 04/15/25 07:48 O2 Del Method Room Air 04/15/25 07:48 O2 Flow Rate 2 04/14/25 15:24 BMI result Body Mass Index 25.9 Const: General: comfortable and no acute distress Orientation/consciousness: patient oriented x3 Resp: Effort & Inspection: normal respiratory effort and able to speak in complete sentences GI: Other: Midline incision amrik in place. Incision is clean dry and intact. No surrounding erythema, no drainage Inspection: No distended Palpation (GI): Soft to palpation, Tenderness to palpation present (GI) (Mild incisional tenderness), no guarding and not rigid Neuro: General: patient oriented x3 Objective Data Active Medications Albuterol Sulfate (Albuterol Sulfate 90 Mcg 8 Gm Inhaler) 2 puff INHALE Q6H PRN PRN Reason: wheezing Albuterol Sulfate (Albuterol Sulfate (0.042%) 1.25 Mg/3 Ml Vial.Neb) 1.25 mg INHALE Q4H PRN PRN Reason: shortness of breath or wheezing Albuterol/Ipratropium (Albuterol/Iprat 2.5/0.5mg 3 Ml Ampul.Neb) 3 ml INHALE RQ4H WHILE AWAKE PRN PRN Reason: Shortness of Breath/Wheezing Last Admin: 04/14/25 09:32 Dose: 3 ml Documented By: MARCELINA Allopurinol (Allopurinol 100 Mg Tablet) 200 mg PO BEDTIME [facility] Last Admin: 04/14/25 20:46 Dose: 200 mg Documented By: TRACY Atorvastatin Calcium (Atorvastatin Calcium 20 Mg Tablet) 20 mg PO DAILY [facility] Last Admin: 04/15/25 08:20 Dose: 20 mg Documented By: ELVIE Cyclobenzaprine HCl (Cyclobenzaprine Hcl 5 Mg Tablet) 5 mg PO BEDTIME [facility] Last Admin: 04/14/25 20:46 Dose: 5 mg Documented By: TRACY Dextrose (Dextrose 50 % 25 Gm/50 Ml Syringe) 25 gm IVPUSH Q15M PRN; Protocol PRN Reason: per Hypoglycemia Standing Ord. Dextrose (Dextrose 50 % 25 Gm/50 Ml Syringe) 25 gm IVPUSH Q15M PRN; Protocol PRN Reason: per Hypoglycemia Standing Ord. Gabapentin (Gabapentin 300 Mg Capsule) 900 mg PO BEDTIME [facility] Last Admin: 04/14/25 20:46 Dose: 900 mg Documented By: TRACY Glucose (Glucose Gel 15 Gm Gel..Gram.) 15 gm PO Q15M PRN; Protocol PRN Reason: per Hypoglycemia Standing Ord. Glucose (Glucose Gel 15 Gm Gel..Gram.) 15 gm PO Q15M PRN; Protocol PRN Reason: per Hypoglycemia Standing Ord. Hydromorphone HCl (Hydromorphone Hcl 0.5 Mg/0.5 Ml Syringe) 0.5 mg IVPUSH Q3H PRN; Protocol PRN Reason: Pain, Severe (Pain Scale 7-10) Last Admin: 04/14/25 20:47 Dose: 0.5 mg Documented By: TRACY Hydroxychloroquine Sulfate (Hydroxychloroquine Sulfate 200 Mg Tablet) 200 mg PO BID [facility] Last Admin: 04/15/25 08:20 Dose: 200 mg Documented By: ELVIE Piperacillin Sod/Tazobactam (Sod 3.375 gm/ Sodium Chloride) 50 mls @ 100 mls/hr IV Q6H [facility] Last Infusion: 04/15/25 08:51 Dose: Infused Documented By: ELVIE Insulin Human Lispro (Insulin Lispro 100 Unit/Ml 3 Ml Vial) 0 unit SUBCUT QIDACHS [facility]; Protocol Last Admin: 04/15/25 07:52 Dose: Not Given Documented By: ELVIE Non-Admin Reason: No Insulin Coverage Levothyroxine Sodium (Levothyroxine Sodium 75 Mcg Tablet) 75 mcg PO DAILY@0600 [facility] Last Admin: 04/15/25 05:29 Dose: 75 mcg Documented By: TRACY Metoprolol Tartrate (Metoprolol Tartrate 25 Mg Tablet) 25 mg PO BID [facility]; Protocol Last Admin: 04/15/25 08:20 Dose: 25 mg Documented By: ELVIE Ondansetron HCl (Ondansetron Hcl 4 Mg/2 Ml Vial) 4 mg IVPUSH QID PRN PRN Reason: Nausea Last Admin: 04/13/25 04:08 Dose: 4 mg Documented By: TRACY Polyethylene Glycol (Polyethylene Glycol 3350 17 Gm Powd.Pack) 17 gm PO DAILY PRN PRN Reason: Constipation Prednisone (Prednisone 5 Mg Tablet) 5 mg PO DAILY [facility] Last Admin: 04/15/25 08:20 Dose: 5 mg Documented By: ELVIE Senna (Sennosides 8.6 Mg Tablet) 17.2 mg PO BEDTIME [facility] Last Admin: 04/14/25 20:46 Dose: 17.2 mg Documented By: TRACY Sodium Chloride (0.9 % Sodium Chloride Flush 3 Ml Syringe) 3 ml IVFLUSH QSHIFT [facility] Last Admin: 04/15/25 08:23 Dose: 3 ml Documented By: ELVIE Zolpidem Tartrate (Zolpidem Tartrate 5 Mg Tablet) 5 mg PO BEDTIME PRN PRN Reason: Insomnia Last Admin: 04/12/25 21:51 Dose: 5 mg Documented By: TRACY Labs 04/14/25 06:05 04/14/25 06:05 Labs: Laboratory Results - last 24 hr 04/14/25 04/14/25 04/15/25 14:59 19:23 02:50 POC Glucose 112 122 H 90 04/15/25 07:42 POC Glucose 81 Procedures Date of Service Date of Service: 04/15/25 Progress Note: A&P Assessment and plan (1) Pneumoperitoneum: Status: Acute (2) S/P exploratory laparotomy: Status: Acute Plan 64-year-old female POD 4 s/p negative exploratory laparotomy for pneumoperitoneum. Patient is improving. Pain is well controlled. Tolerating regular diet. Patient passing flatus, no bowel movement at this time. Abdomen is soft and benign. Incision sites appear to be healing well amrik remain in place. No concern for infection at this time. Patient feels ready to be discharged. Continue IV Zosyn while inpatient. Pain management as needed. Ambulation as tolerated Continue regular diet Possible discharge later today. Time Spent With Patient Time: Total time managing care of this patient today ____ minutes. Quality Stroke Does the patient have a stroke diagnosis?: No VTE Prior VTE?: No VTE Risk Level:: Surgical - moderate VTE Device Contraindication: N/A - Device Ordered VTE Drug Contraindication: Treatment Not Indicated
[2025-04-15 11:11] LABS: Glucose, Whole Blood 95 mg/dL (60-115)
--- NOTE | 2025-04-15 11:45 | P.CDIM_ITS ---
PROVIDER RESPONSE TEXT: To clarify, the appropriate diagnosis supported by the clinical indicators: Acute QUERY TEXT: PHYSICIAN'S DOCUMENTATION REQUEST Date of Query: 04/15/2025 09:16 AM EDT Patient Name: Nicky Lopez Admit Date: 04/12/2025 Dear Hector Kemp MD, A review of the medical record indicates additional documentation may be needed. Please review below and update the documentation accordingly. Clinical Indicators: per General Surgery progress note 04/13/25: pod#2 s/p explor lap for pneumoperitoneum - no findings of perf -? sealed perf gastric ulcer - pt see n by gi - plan to cont on iv PPI switch to po and then eventually will get gscope as an outpt Clarify which of the following accurately represents the acuity of the Gastric ulcer. Possible options might include: Acute Acute on chronic Compensated Chronic stable condition Remission Other (explain) Clinically unable to determine (explain) Thank you, Vandana Gotti RN Use of terms such as suspected, likely, concern for, or probable (associated with a specific diagnosi s that is being evaluated, monitored, or treated as if it exists) are acceptable and can be coded in the inpatient se tting, when documented at the time of discharge. Please use your independent medical judgment in providing your response. THIS QUERY IS PART OF THE PERMANENT MEDICAL RECORD
[2025-04-15 11:59] LABS: MANUAL DIFF FLAG NO
[2025-04-15 12:03] LABS: Basophils Percent Auto 0.2 % (0-2); Eosinophils Absolute Auto 0.4 X10*3/uL (0.0-0.4); Eosinophils Percent Auto 3.9 % (0-4); Hematocrit 31.4 % (37.0-47.0); Hemoglobin 10.6 g/dl (12.0-16.0); Imm Gran Abs Auto 0.05 X10*3/uL (0.00-0.03); Imm Gran Pct Auto 0.5 % (0.0-0.4); Lymphocytes Absolute Auto 1.1 X10*3/uL (1.2-4.9); Lymphocytes Percent Auto 10.1 % (20-40); Mean Corpuscular HGB Conc 33.8 g/dl (31.0-35.0); Mean Corpuscular Hemoglobin 30.1 pg (27.0-33.0); Mean Corpuscular Volume 89.2 fL (80.0-98.0); Monocytes Absolute Auto 0.8 X10*3/uL (0.1-1.2); Monocytes Percent Auto 7.7 % (2-11); Neutrophils Absolute Auto 8.5 x10*3/uL (2.0-8.3); Neutrophils Percent Auto 77.6 % (45-73); Platelet Count 229 X10*3/uL (160-400); Red Blood Count 3.52 X10*6/uL (4.20-5.50); White Blood Count 10.9 X10*3/uL (4.8-10.8)
--- NOTE | 2025-04-15 14:42 | P.PNIM_ITS ---
Subjective Subjective Date of Service: 04/15/25 Interval History: Tolerating diet. Hemoglobin improved. No overt bleeding Review of Systems Denies chest pain Denies shortness of breath Denies nausea vomiting diarrhea Denies fever chills Physical Exam 2 Vital Signs: Vital Signs: Last Vital Signs Temp 99.3 F 04/15/25 07:48 Pulse 63 04/15/25 07:48 Resp 16 04/15/25 07:48 BP 167/82 H 04/15/25 07:48 Pulse Ox 99 04/15/25 07:48 O2 Del Method Room Air 04/15/25 07:48 O2 Flow Rate 2 04/14/25 15:24 BMI result Body Mass Index 25.9 Const: Other: Awake alert no acute distress Resp: Other: Clear to auscultation bilaterally no rales rhonchi or wheezes Cardio: Other: No S4; positive S1-S2; no S3 murmurs rubs or gallops GI: Other: Soft nontender nondistended normoactive bowel sounds Extrem: Other: No edema bilaterally Objective Data Active Medications Albuterol Sulfate (Albuterol Sulfate 90 Mcg 8 Gm Inhaler) 2 puff INHALE Q6H PRN PRN Reason: wheezing Albuterol Sulfate (Albuterol Sulfate (0.042%) 1.25 Mg/3 Ml Vial.Neb) 1.25 mg INHALE Q4H PRN PRN Reason: shortness of breath or wheezing Albuterol/Ipratropium (Albuterol/Iprat 2.5/0.5mg 3 Ml Ampul.Neb) 3 ml INHALE RQ4H WHILE AWAKE PRN PRN Reason: Shortness of Breath/Wheezing Last Admin: 04/14/25 09:32 Dose: 3 ml Documented By: MARCELINA Allopurinol (Allopurinol 100 Mg Tablet) 200 mg PO BEDTIME [facility] Last Admin: 04/14/25 20:46 Dose: 200 mg Documented By: TRACY Atorvastatin Calcium (Atorvastatin Calcium 20 Mg Tablet) 20 mg PO DAILY [facility] Last Admin: 04/15/25 08:20 Dose: 20 mg Documented By: GRAZBRENDON Cyclobenzaprine HCl (Cyclobenzaprine Hcl 5 Mg Tablet) 5 mg PO BEDTIME [facility] Last Admin: 04/14/25 20:46 Dose: 5 mg Documented By: TRACY Dextrose (Dextrose 50 % 25 Gm/50 Ml Syringe) 25 gm IVPUSH Q15M PRN; Protocol PRN Reason: per Hypoglycemia Standing Ord. Dextrose (Dextrose 50 % 25 Gm/50 Ml Syringe) 25 gm IVPUSH Q15M PRN; Protocol PRN Reason: per Hypoglycemia Standing Ord. Gabapentin (Gabapentin 300 Mg Capsule) 900 mg PO BEDTIME [facility] Last Admin: 04/14/25 20:46 Dose: 900 mg Documented By: TRACY Glucose (Glucose Gel 15 Gm Gel..Gram.) 15 gm PO Q15M PRN; Protocol PRN Reason: per Hypoglycemia Standing Ord. Glucose (Glucose Gel 15 Gm Gel..Gram.) 15 gm PO Q15M PRN; Protocol PRN Reason: per Hypoglycemia Standing Ord. Hydromorphone HCl (Hydromorphone Hcl 0.5 Mg/0.5 Ml Syringe) 0.5 mg IVPUSH Q3H PRN; Protocol PRN Reason: Pain, Severe (Pain Scale 7-10) Last Admin: 04/14/25 20:47 Dose: 0.5 mg Documented By: TRACY Hydroxychloroquine Sulfate (Hydroxychloroquine Sulfate 200 Mg Tablet) 200 mg PO BID [facility] Last Admin: 04/15/25 08:20 Dose: 200 mg Documented By: ELVIE Piperacillin Sod/Tazobactam (Sod 3.375 gm/ Sodium Chloride) 50 mls @ 100 mls/hr IV Q6H [facility] Last Infusion: 04/15/25 08:51 Dose: Infused Documented By: ELVIE Insulin Human Lispro (Insulin Lispro 100 Unit/Ml 3 Ml Vial) 0 unit SUBCUT QIDACHS [facility]; Protocol Last Admin: 04/15/25 11:22 Dose: Not Given Documented By: ELVIE Non-Admin Reason: No Insulin Coverage Levothyroxine Sodium (Levothyroxine Sodium 75 Mcg Tablet) 75 mcg PO DAILY@0600 [facility] Last Admin: 04/15/25 05:29 Dose: 75 mcg Documented By: TRACY Metoprolol Tartrate (Metoprolol Tartrate 25 Mg Tablet) 25 mg PO BID [facility]; Protocol Last Admin: 04/15/25 08:20 Dose: 25 mg Documented By: ELVIE Ondansetron HCl (Ondansetron Hcl 4 Mg/2 Ml Vial) 4 mg IVPUSH QID PRN PRN Reason: Nausea Last Admin: 04/13/25 04:08 Dose: 4 mg Documented By: TRACY Polyethylene Glycol (Polyethylene Glycol 3350 17 Gm Powd.Pack) 17 gm PO DAILY PRN PRN Reason: Constipation Prednisone (Prednisone 5 Mg Tablet) 5 mg PO DAILY [facility] Last Admin: 04/15/25 08:20 Dose: 5 mg Documented By: ELVIE Senna (Sennosides 8.6 Mg Tablet) 17.2 mg PO BEDTIME [facility] Last Admin: 04/14/25 20:46 Dose: 17.2 mg Documented By: TRACY Sodium Chloride (0.9 % Sodium Chloride Flush 3 Ml Syringe) 3 ml IVFLUSH QSHIFT [facility] Last Admin: 04/15/25 08:23 Dose: 3 ml Documented By: ELVIE Zolpidem Tartrate (Zolpidem Tartrate 5 Mg Tablet) 5 mg PO BEDTIME PRN PRN Reason: Insomnia Last Admin: 04/12/25 21:51 Dose: 5 mg Documented By: TRACY Labs 04/15/25 11:41 04/14/25 06:05 Labs: Laboratory Results - last 24 hr 04/14/25 04/14/25 04/15/25 14:59 19:23 02:50 MCV MCH MCHC RDW Plt Count MPV Immature Gran % (Auto) Neut % (Auto) Lymph % (Auto) [place] % (Auto) Eos % (Auto) Baso % (Auto) Lymph # (Auto) [place] # (Auto) Eos # (Auto) Baso # (Auto) Abs Immat Gran (auto) Absolute Neuts (auto) Absolute Nucleated RBC Nucleated RBC % (auto) POC Glucose 112 122 H 90 04/15/25 04/15/25 04/15/25 07:42 11:03 11:41 MCV 89.2 MCH 30.1 MCHC 33.8 RDW 15.0 Plt Count 229 MPV 10.0 Immature Gran % (Auto) 0.5 H Neut % (Auto) 77.6 H Lymph % (Auto) 10.1 L [place] % (Auto) 7.7 Eos % (Auto) 3.9 Baso % (Auto) 0.2 Lymph # (Auto) 1.1 L [place] # (Auto) 0.8 Eos # (Auto) 0.4 Baso # (Auto) 0.0 Abs Immat Gran (auto) 0.05 H Absolute Neuts (auto) 8.5 H Absolute Nucleated RBC 0.000 Nucleated RBC % (auto) 0.0 POC Glucose 81 95 Assessment and Plan (1) Gastric ulcer: Status: Acute (2) DONI (acute kidney injury): Status: Acute Plan 64yo F with SLE/RA on chronic prednisone 5 mg/d, CKD4, gout, HTN, asthma, hypothyroidism, CPAP, and DM2, s/p ex-lap for suspicion of perforated viscus, found to have gastric ulcer with clot, no active perforation; medicine consult for management of comorbid conditions 1.Gastric ulcer -hemoglobin Hgb stable.. no active bleeding -advanced diet as per surgery -continue pantoprazole as ordered IV 2.DONI/CKD4 -responded to volume -holding irbesartan and furosemide. Can follow up with renal as outpatient -follow renals/divalent 3.Steroid-dependent SLE/RA - continue hydroxychloroquine - got 80 mg IV methylprednisolone preop for stress dose; give 10 mg IV methylprednisolone today and resume usual 5 mg/d prednisone tomorrow 4.Asthma -stable and well compensated 5.HTN -acceptable control off current therapies -adjust as indicated 6.DM2 -acceptable control.... Hold Ozempic -lispro correctional scale -adjust as indicated VTE ppx - heparin when OK with surgery Thank you for this consultation. Quality Stroke Does the patient have a stroke diagnosis?: No VTE Prior VTE?: No VTE Risk Level:: Surgical - moderate VTE Device Contraindication: N/A - Device Ordered VTE Drug Contraindication: Treatment Not Indicated
[2025-04-15 15:41] VITALS: BP 146/78; PULSE 75; RESP 16; TEMP 36.9; O2SAT 98
--- NOTE | 2025-04-15 15:41 | MHC.CM.PN ---
per rounds not ready for dc dc plan home n/s
[2025-04-15 16:38] LABS: Glucose, Whole Blood 95 mg/dL (60-115)
[2025-04-15 19:10] VITALS: BP 145/91; PULSE 78; RESP 15; TEMP 36.5; O2SAT 100
[2025-04-15] MEDS: Sennosides 8.6 MG TABLET 17.2 MG PO (19:59)
[2025-04-15] MEDS: Cyclobenzaprine HCl 5 MG TABLET PO (19:59)
[2025-04-15] MEDS: Gabapentin 300 MG CAPSULE 900 MG PO (19:59)
[2025-04-15] MEDS: allopurinoL 100 MG TABLET 200 MG PO (20:00)
[2025-04-15] MEDS: Zolpidem Tartrate 5 MG TABLET PO (20:00)
[2025-04-15 20:24] LABS: Glucose, Whole Blood 103 mg/dL (60-115)
[2025-04-16] MEDS: Piperacillin Sodium/Tazobactam 3.375 GM in 0.9 % Sodium Chloride 50 ML IV ×2 (01:43→08:14)
[2025-04-16 04:00] VITALS: BP 147/70; PULSE 68; RESP 18; TEMP 36.3; O2SAT 96
[2025-04-16] MEDS: Levothyroxine Sodium 75 MCG TABLET PO (05:34)
[2025-04-16 06:33] LABS: MANUAL DIFF FLAG NO
[2025-04-16 06:48] LABS: Basophils Percent Auto 0.2 % (0-2); Eosinophils Absolute Auto 0.7 X10*3/uL (0.0-0.4); Eosinophils Percent Auto 6.7 % (0-4); Hematocrit 31.5 % (37.0-47.0); Hemoglobin 10.4 g/dl (12.0-16.0); Imm Gran Abs Auto 0.04 X10*3/uL (0.00-0.03); Imm Gran Pct Auto 0.4 % (0.0-0.4); Lymphocytes Absolute Auto 2.3 X10*3/uL (1.2-4.9); Lymphocytes Percent Auto 22.8 % (20-40); Mean Corpuscular Volume 90.8 fL (80.0-98.0); Mean Platelet Volume 10.2 fL (9.4-12.3); Monocytes Percent Auto 9.3 % (2-11); Neutrophils Absolute Auto 6.2 x10*3/uL (2.0-8.3); Neutrophils Percent Auto 60.6 % (45-73); Platelet Count 233 X10*3/uL (160-400); Red Blood Count 3.47 X10*6/uL (4.20-5.50); Red Cell Distribution Width 14.8 % (11.0-16.0); White Blood Count 10.2 X10*3/uL (4.8-10.8)
[2025-04-16 07:42] VITALS: BP 134/81; PULSE 73; RESP 18; TEMP 36.8; O2SAT 100
[2025-04-16 07:50] LABS: Glucose, Whole Blood 91 mg/dL (60-115)
--- NOTE | 2025-04-16 08:03 | P.PNGS_ITS ---
Subjective Subjective Date of Service: 04/16/25 Interval history: Patient with no complaints this morning. Tolerating p.o. without nausea or vomiting. Physical Exam 2 Vital Signs: Vital Signs: Last Vital Signs Temp 98.3 F 04/16/25 07:42 Pulse 73 04/16/25 07:42 Resp 18 04/16/25 07:42 BP 134/81 04/16/25 07:42 Pulse Ox 100 04/16/25 07:42 O2 Del Method Room Air 04/16/25 07:42 O2 Flow Rate 2 04/14/25 15:24 BMI result Body Mass Index 25.9 Const: General: comfortable and no acute distress O rientation/consciousness: patient oriented x3 Resp: Effort & Inspection: normal respiratory effort and able to speak in complete sentences GI: Other: Midline incision amrik in place. Incision is clean dry and intact. No surrounding erythema, no drainage Inspection: No distended Palpation (GI): Soft to palpation, Tenderness to palpation present (GI) (Mild incisional tenderness), no guarding and not rigid Neuro: General: patient oriented x3 Objective Data Active Medications Albuterol Sulfate (Albuterol Sulfate 90 Mcg 8 Gm Inhaler) 2 puff INHALE Q6H PRN PRN Reason: wheezing Albuterol Sulfate (Albuterol Sulfate (0.042%) 1.25 Mg/3 Ml Vial.Neb) 1.25 mg INHALE Q4H PRN PRN Reason: shortness of breath or wheezing Albuterol/Ipratropium (Albuterol/Iprat 2.5/0.5mg 3 Ml Ampul.Neb) 3 ml INHALE RQ4H WHILE AWAKE PRN PRN Reason: Shortness of Breath/Wheezing Last Admin: 04/14/25 09:32 Dose: 3 ml Documented By: HARPALNM Allopurinol (Allopurinol 100 Mg Tablet) 200 mg PO BEDTIME [facility] Last Admin: 04/15/25 20:00 Dose: 200 mg Documented By: ARLET Atorvastatin Calcium (Atorvastatin Calcium 20 Mg Tablet) 20 mg PO DAILY [facility] Last Admin: 04/15/25 08:20 Dose: 20 mg Documented By: ELVIE Cyclobenzaprine HCl (Cyclobenzaprine Hcl 5 Mg Tablet) 5 mg PO BEDTIME [facility] Last Admin: 04/15/25 19:59 Dose: 5 mg Documented By: ARLET Dextrose (Dextrose 50 % 25 Gm/50 Ml Syringe) 25 gm IVPUSH Q15M PRN; Protocol PRN Reason: per Hypoglycemia Standing Ord. Dextrose (Dextrose 50 % 25 Gm/50 Ml Syringe) 25 gm IVPUSH Q15M PRN; Protocol PRN Reason: per Hypoglycemia Standing Ord. Gabapentin (Gabapentin 300 Mg Capsule) 900 mg PO BEDTIME [facility] Last Admin: 04/15/25 19:59 Dose: 900 mg Documented By: ARLET Glucose (Glucose Gel 15 Gm Gel..Gram.) 15 gm PO Q15M PRN; Protocol PRN Reason: per Hypoglycemia Standing Ord. Glucose (Glucose Gel 15 Gm Gel..Gram.) 15 gm PO Q15M PRN; Protocol PRN Reason: per Hypoglycemia Standing Ord. Hydromorphone HCl (Hydromorphone Hcl 0.5 Mg/0.5 Ml Syringe) 0.5 mg IVPUSH Q3H PRN; Protocol PRN Reason: Pain, Severe (Pain Scale 7-10) Last Admin: 04/14/25 20:47 Dose: 0.5 mg Documented By: TRACY Hydroxychloroquine Sulfate (Hydroxychloroquine Sulfate 200 Mg Tablet) 200 mg PO BID [facility] Last Admin: 04/15/25 19:59 Dose: 200 mg Documented By: ARLET Piperacillin Sod/Tazobactam (Sod 3.375 gm/ Sodium Chloride) 50 mls @ 100 mls/hr IV Q6H [facility] Last Infusion: 04/16/25 02:14 Dose: Infused Documented By: LA Insulin Human Lispro (Insulin Lispro 100 Unit/Ml 3 Ml Vial) 0 unit SUBCUT QIDACHS [facility]; Protocol Last Admin: 04/16/25 07:53 Dose: Not Given Documented By: CELSO Non-Admin Reason: No Insulin Coverage Levothyroxine Sodium (Levothyroxine Sodium 75 Mcg Tablet) 75 mcg PO DAILY@0600 [facility] Last Admin: 04/16/25 05:34 Dose: 75 mcg Documented By: LA Metoprolol Tartrate (Metoprolol Tartrate 25 Mg Tablet) 25 mg PO BID [facility]; Protocol Last Admin: 04/15/25 20:00 Dose: 25 mg Documented By: ARLET Ondansetron HCl (Ondansetron Hcl 4 Mg/2 Ml Vial) 4 mg IVPUSH QID PRN PRN Reason: Nausea Last Admin: 04/13/25 04:08 Dose: 4 mg Documented By: TRACY Polyethylene Glycol (Polyethylene Glycol 3350 17 Gm Powd.Pack) 17 gm PO DAILY PRN PRN Reason: Constipation Prednisone (Prednisone 5 Mg Tablet) 5 mg PO DAILY [facility] Last Admin: 04/15/25 08:20 Dose: 5 mg Documented By: ELVIE Senna (Sennosides 8.6 Mg Tablet) 17.2 mg PO BEDTIME [facility] Last Admin: 04/15/25 19:59 Dose: 17.2 mg Documented By: ARLET Sodium Chloride (0.9 % Sodium Chloride Flush 3 Ml Syringe) 3 ml IVFLUSH QSHIFT [facility] Last Admin: 04/15/25 20:03 Dose: 3 ml Documented By: ARLET Zolpidem Tartrate (Zolpidem Tartrate 5 Mg Tablet) 5 mg PO BEDTIME PRN PRN Reason: Insomnia Last Admin: 04/15/25 20:00 Dose: 5 mg Documented By: ARLET Labs 04/16/25 05:44 04/14/25 06:05 Labs: Laboratory Results - last 24 hr 04/15/25 04/15/25 04/15/25 11:03 11:41 16:35 MCV 89.2 MCH 30.1 MCHC 33.8 RDW 15.0 Plt Count 229 MPV 10.0 Immature Gran % (Auto) 0.5 H Neut % (Auto) 77.6 H Lymph % (Auto) 10.1 L [place] % (Auto) 7.7 Eos % (Auto) 3.9 Baso % (Auto) 0.2 Lymph # (Auto) 1.1 L [place] # (Auto) 0.8 Eos # (Auto) 0.4 Baso # (Auto) 0.0 Abs Immat Gran (auto) 0.05 H Absolute Neuts (auto) 8.5 H Absolute Nucleated RBC 0.000 Nucleated RBC % (auto) 0.0 POC Glucose 95 95 04/15/25 04/16/25 04/16/25 20:15 05:44 07:46 MCV 90.8 MCH 30.0 MCHC 33.0 RDW 14.8 Plt Count 233 MPV 10.2 Immature Gran % (Auto) 0.4 Neut % (Auto) 60.6 Lymph % (Auto) 22.8 [place] % (Auto) 9.3 Eos % (Auto) 6.7 H Baso % (Auto) 0.2 Lymph # (Auto) 2.3 [place] # (Auto) 1.0 Eos # (Auto) 0.7 H Baso # (Auto) 0.0 Abs Immat Gran (auto) 0.04 H Absolute Neuts (auto) 6.2 Absolute Nucleated RBC 0.000 Nucleated RBC % (auto) 0.0 POC Glucose 103 91 Procedures Date of Service Date of Service: 04/16/25 Progress Note: A&P Assessment and plan (1) Gastric ulcer: Status: Acute (2) Pneumoperitoneum: Status: Acute (3) S/P exploratory laparotomy: Status: Acute Plan S/p exploratory laparotomy for hemoperitoneum. Patient found to have evidence of ecchymosis in the lesser curvature of the stomach. This morning she is much improved with minimal abdominal pain. Her incision is clean and intact without redness or discharge. She is tolerating regular diet. H&H his stable without evidence of ongoing bleeding. Plan discharge to home. Omeprazole 40 mg p.o. daily. Discharge medications as per hospitalist. Time Spent With Patient Time: Total time managing care of this patient today ____ minutes. Quality Stroke Does the patient have a stroke diagnosis?: No VTE Prior VTE?: No VTE Risk Level:: Surgical - moderate VTE Device Contraindication: N/A - Device Ordered VTE Drug Contraindication: Treatment Not Indicated
[2025-04-16] MEDS: Atorvastatin Calcium 20 MG TABLET PO (08:14)
[2025-04-16] MEDS: Metoprolol Tartrate 25 MG TABLET PO (08:14)
[2025-04-16] MEDS: Hydroxychloroquine Sulfate 200 MG TABLET PO (08:14)
[2025-04-16] MEDS: 0.9 % Sodium Chloride Flush 3 ML SYRINGE IVFLUSH (08:15)
[2025-04-16] MEDS: predniSONE 5 MG TABLET PO (08:21)
--- NOTE | 2025-04-16 09:11 | MHC.CM.PN ---
Patient medically cleared for dc home, will resume [employer]. IMM delivered via human relations manager. Son will transport. RN aware.
--- NOTE | 2025-04-16 10:39 | P.DS_ITS ---
DS: Providers Provider Date of Service: 04/16/25 Date of admission: 04/11/25 22:10 Date of discharge: 04/16/25 Primary care physician: Sue Alicia MD Attending physician on admission: Hector Kemp Consults: 04/11/25 21:54 Consult to Hospitalist Routine Comment: Consulting Provider: [facility] Hospitalists Reason For Exam: Med management, perforated viscus 04/12/25 02:12 Consult to Gastroenterology Routine Consulting Provider: Reece Leahy Reason for consultation: gastric ulcer, pt on ozempic Has provider been notified: No 04/12/25 02:57 Consult to Nephrology Routine Consulting Provider: [facility] Reason for consultation: DONI on CKD s/p GI surgery Has provider been notified: No DS: Diagnosis Discharge Diagnosis (1) Gastric ulcer: Status: Acute (2) Pneumoperitoneum: Status: Inactive (3) S/P exploratory laparotomy: Status: Inactive DS: Summary Hospital Course Hospital Course: HPI AT ADMISSION: 64-year-old female patient presenting with a 2 day history of abdominal pain located in the chest and epigastrium. She presented twice to the emergency department and after waiting a prolonged period of time left for being evaluated. She now presents with increased abdominal pain and chest pain, shortness of breath and tachycardia. On examination she was found to be short of breath with epigastric tenderness. She has a prior diagnosis of lupus, fibromyalgia, hypothyroidism, LONA, asthma, morbid obesity and gout on allopur inol. She has been on prednisone for prolonged period of time. Laboratories revealed an elevated WBC and CT abdomen and pelvis reveals free air in the left upper quadrant near the splenic flexure concerning for bowel perforation. HOSPITAL COURSE: She was admitted to the surgical service for further management of free intra-abdominal air suggestive of a perforated viscus. Judging from her history and physical examination, the most likely cause would be a perforated duodenal or gastric ulcer. It was recommended to proceed with exploratory laparotomy with possible repair of gastric ulcer or possible colostomy depending on the findings. After discussion of the procedure, risks, and alternatives, she consents to the surgery. She was added onto the schedule as an emergency that evening. On 04/11/25, an exploratory laparotomy was performed by Dr. Kemp without complication. She was found to have perforated gastric ulcer with hematoma. There was no evidence of colon perforation, no intraperitoneal feculent or gastric/biliary contents. The lesser curvature of the stomach had significant ecchymosis suggestive of an underlying hematoma possibly microperforation which subsequently sealed without evidence of ongoing leakage at the time of exploration. No diverticulitis or colon perforation. She was kept NPO post operatively. She was started on IV protonix. IV zosyn was continued. She had an uncomplicated but slow recovery course. Hospitalist consult was obtained for management of her medical comorbidities. Gastroenterology was consulted for the perforated gastric ulcer. Nephrology was also consulted for her renal function. Her diet was slowly advanced as tolerated.V/Q scan apparently ordered by ED PA due to dyspnea, D-dimer 552 came back with high probability for pulmonary emboli. She was started on heparin drip prophylactically and CTA chest and venous duplex were obtained which were negative. Heparin drip was discontinued. Toro was removed on POD #2. She was a mbulated and activity increased. On the day of discharge, she was tolerating regular diet without nausea or vomiting. Her pain was minimal and well controlled. Her abdomen was benign with clean incision. She was hemodynamically stable. Her H&H remained stable without evidence of ongoing bleeding. She was continued on Omeprazole 40 mg p.o. daily at discharge. She was discharged to home on 04/16/25 in stable condition. She is to follow up in the office in 1 week. Status at Discharge Functional status at discharge: independent ambulation Overall status at discharge: patient is progressing back to baseline Time Attestation Discharge Coordination Time (in mins): 45 Quality: Safe Use of Opioids Does Pt have an Active Cancer Diagnosis on the Problem List?: No Quality: Stroke Does the patient have a stroke diagnosis?: No Physical Exam Vital Signs: Vital Signs: Last Vital Signs Temp 97.6 F 04/16/25 10:53 Pulse 70 04/16/25 10:53 Resp 16 04/16/25 10:53 BP 161/82 H 04/16/25 10:53 Pulse Ox 100 04/16/25 10:53 O2 Del Method Room Air 04/16/25 10:53 O2 Flow Rate 2 04/14/25 15:24 BMI result Body Mass Index 25.9 Const: General: comfortable, no acute distress and alert Orientation/consciousness: patient oriented x3 Resp: Effort & Inspection: normal respiratory effort GI: Inspection: Yes incision (clean, amrik in place ) Palpation (GI): Soft to palpation, Tenderness to palpation present (GI) (mild incisional) and no guarding Skin: General skin exam: no rashes or lesions noted Neuro: General: patient oriented x3 and moves all extremities Discharge Plan Discharge Anticipated Discharge Date/Time: 04/16/25 08:09 Patient Disposition: Home, Self-Care Discharge Diagnosis: Hemoperitoneum, gastric ulcer Referrals: Sue Alicia MD [Primary Care Provider, Internal Medicine] - 1 Week Hector Kemp MD [Physician, General Surgery] - 1 Week Discharge Medications: New omeprazole 40 mg capsule,delayed release(DR/EC) 40 mg PO DAILY Qty: 30 1RF Continued (DME) pen needle, diabetic [Pentips Pen Needle] 32 gauge x 5/32 needle See Rx Instructions .ROUTE .COMPLEX Qty: 100 3RF Dose Instruction: USE 1 DAILY WITH VICTOZA Rx Instructions: USE 1 DAILY WITH VICTOZA albuterol sulfate 1.25 mg/3 mL solution for nebulization 1.25 mg inhalation Q4-6H PRN (Reason: shortness of breath or wheezing) 30 Days Qty: 90 3RF famotidine 20 mg tablet 20 mg PO DAILY Qty: 14 0RF oxycodone-acetaminophen 5-325 mg tablet 1 tab PO Q6H PRN (Reason: severe pain) albuterol sulfate [Ventolin HFA] 90 mcg/actuation HFA aerosol inhaler 2 puff INHALATION Q6H PRN (Reason: wheezing) Ozempic 0.25 mg or 0.5 mg (2 mg/3 mL) pen injector 0.5 mg subcut VIEIRA allopurinol 100 mg tablet 200 mg PO BEDTIME cholecalciferol (vitamin D3) 1,250 mcg (50,000 unit) capsule 1,250 mcg PO FR atorvastatin 20 mg tablet 20 mg PO DAILY furosemide 40 mg tablet 40 mg PO BID (DME) cane Device See Rx Instructions .ROUTE .MEDSUPPLY Qty: 1 0RF Rx Instructions: As directed (DME) blood-glucose meter [FreeStyle [place] Lite] Kit See Rx Instructions .Route Qty: 1 0RF Rx Instructions: As directed (DME) FreeStyle Lite Strips Strip See Rx Instructions .ROUTE QID Qty: 10 Rx Instructions: As directed irbesartan 75 mg tablet 75 mg PO DAILY levothyroxine 75 mcg capsule 75 mcg PO DAILY@0600 metoprolol tartrate 25 mg tablet 25 mg PO BID prednisone 5 mg tablet 5 mg PO DAILY 90 Days Qty: 90 1RF hydroxychloroquine [Plaquenil] 200 mg tablet 200 mg PO BID Qty: 180 1RF gabapentin 300 mg capsule 900 mg PO BEDTIME 30 Days Qty: 90 5RF cyclobenzaprine 5 mg tablet 5 mg PO BEDTIME Qty: 90 1RF Discontinued omeprazole magnesium [Prilosec OTC] 20 mg tablet,delayed release (DR/EC) 20 mg PO DAILY@0630 Discharge Orders: Discharge Order (Routine); Ordered 04/16/25 Ordered By: Hector Kemp Diet: Advance to usual diet Activity on Discharge: No heavy lifting Stand Alone Forms: Patient Portal Discharge page Print Language: [place] Activity Restrictions/Additional Instructions: No lifting > 10 pounds for 1 month No driving for one week Use warm compress or heating pad on low as needed Take Tylenol Extra-strength 1-2 tabs every 6 hours for the first day, then prn Oxycodone every 6-8 hours as needed for pain (meds already prescribed by PCP) Colace 100 mg every day as needed for constipation Remove dressing in 3 days Follow up in office in one week. Care Plan Goals: Returned to normal activity and diet Health Concerns: Abdominal pain, shortness of breath Plan of Treatment: Exploratory laparotomy Assessment: Gastric ulcer, pneumoperitoneum Discharge Date/Time: 04/16/25 11:00
[2025-04-16 10:53] VITALS: BP 161/82; PULSE 70; RESP 16; TEMP 36.4; O2SAT 100
== END 2025-04-16 11:00 | disposition home or self-care (01) | DRG 356 ==
LOC: HO.ED 21:30 → HO.S3 22:40
PROVIDERS: Family Medicine; Hospitalist; Nurse Practitioner Family; Physician Assistant Medical; Admitting Provider Surgery; Emergency Provider Emergency Medicine; PCP General Practice; Visit Provider Surgery
PROC: 0DJ00ZZ Inspection of Upper Intestinal Tract, Open Approach (ICD-10-PCS; CPT 49000; principal; 2025-04-11 20:00)
DX: K25.3 Acute gastric ulcer without hemorrhage or perforation (principal); K66.1 Hemoperitoneum; N17.9 Acute kidney failure, unspecified; N18.4 Chronic kidney disease, stage 4 (severe); I12.9 Hypertensive chronic kidney disease with stage 1 through stage 4 chronic kidney disease, or unspecified chronic kidney disease; E03.9 Hypothyroidism, unspecified; E78.5 Hyperlipidemia, unspecified; M10.9 Gout, unspecified; G47.33 Obstructive sleep apnea (adult) (pediatric); E11.42 Type 2 diabetes mellitus with diabetic polyneuropathy; M79.7 Fibromyalgia; K59.00 Constipation, unspecified; M32.9 Systemic lupus erythematosus, unspecified; J45.909 Unspecified asthma, uncomplicated; M06.00 Rheumatoid arthritis without rheumatoid factor, unspecified site; E11.51 Type 2 diabetes mellitus with diabetic peripheral angiopathy without gangrene; E11.22 Type 2 diabetes mellitus with diabetic chronic kidney disease; Z87.891 Personal history of nicotine dependence; Z79.52 Long term (current) use of systemic steroids; Z79.890 Hormone replacement therapy; Z79.899 Other long term (current) drug therapy
CPT/HCPCS: 0241U; 36415; 71046; 71275; 74176; 78580; 80048; 80053; 80307; 81001; 82947; 83036; 83605; 83690; 83735; 83880; 84443; 84484; 84550; 85025; 85027; 85379; 85610; 85730; 87040; 93005; 93306; 93970; 94640; 99283; 99285; A9540; J0131; J0692; J1171; J1644; J1836; J2003; J2371; J2405; J2470; J2543; J2704; J2919; J3010; J7120; Q9957; Q9967

== ENCOUNTER → 2025-04-11 15:37 | Outpatient (BNV) | payer MEDICARE, MEDICAID, SELFPAY | PROVIDERS: Admitting Provider Surgery; Emergency Provider Emergency Medicine; PCP General Practice; Visit Provider Internal Medicine Cardiovascular Disease | DX: I49.1 Atrial premature depolarization (principal) | CPT/HCPCS: 93010 ==

== ENCOUNTER → 2025-04-11 15:59 | Outpatient (BNV) | payer MEDICARE, MEDICAID, SELFPAY | PROVIDERS: Emergency Provider Emergency Medicine; Visit Provider Radiology Diagnostic Radiology | DX: R10.9 Unspecified abdominal pain (principal); R06.02 Shortness of breath | CPT/HCPCS: 71046 ==

== ENCOUNTER → 2025-04-11 19:43 | Outpatient (BNV) | payer MEDICARE, MEDICAID, SELFPAY | PROVIDERS: Emergency Provider Emergency Medicine; PCP General Practice; Visit Provider Surgery | DX: K25.2 Acute gastric ulcer with both hemorrhage and perforation (principal); K66.8 Other specified disorders of peritoneum; Z98.890 Other specified postprocedural states | CPT/HCPCS: 49010; 99024; 99223 ==

== ENCOUNTER 2025-04-11 22:10 | Outpatient (BNV) | payer MEDICARE, MEDICAID, SELFPAY | END 2025-04-12 17:59 | PROVIDERS: Admitting Provider Surgery; Emergency Provider Emergency Medicine; PCP General Practice; Visit Provider Radiology Diagnostic Radiology | DX: J98.11 Atelectasis (principal); R79.1 Abnormal coagulation profile; I26.99 Other pulmonary embolism without acute cor pulmonale | CPT/HCPCS: 78580 ==

== ENCOUNTER 2025-04-11 22:10 | Outpatient (BNV) | payer MEDICARE, MEDICAID, SELFPAY | END 2025-04-12 13:00 | PROVIDERS: Admitting Provider Surgery; Emergency Provider Emergency Medicine; PCP General Practice; Visit Provider Internal Medicine Cardiovascular Disease | DX: I51.89 Other ill-defined heart diseases (principal) | CPT/HCPCS: 93306 ==

== ENCOUNTER → 2025-04-11 22:10 | Outpatient (BNV) | payer MEDICARE, MEDICAID, SELFPAY | PROVIDERS: Admitting Provider Surgery; Emergency Provider Emergency Medicine; PCP General Practice; Visit Provider Nurse Practitioner Family | DX: K25.2 Acute gastric ulcer with both hemorrhage and perforation (principal); K66.8 Other specified disorders of peritoneum; N17.9 Acute kidney failure, unspecified | CPT/HCPCS: 99232 ==

== ENCOUNTER 2025-04-29 09:59 | Outpatient (AMB) | payer MEDICARE, MEDICAID, SELFPAY ==
[2025-04-29 10:05] VITALS: BP 123/59; PULSE 75; TEMP 36.7; O2SAT 99; BMI 25.8
--- NOTE | 2025-04-29 10:05 | A.OFFVIS_ITS ---
Vital Signs 04/29/25 10:05 Height 5 ft 2 in Weight 141 lb 1.533 oz BMI 25.8 BP 123/59 L Blood Pressure Location Rt brachial Position Sitting Pulse 75 Pulse Source Pulse Oximeter Temp 98.0 F Temp Source Temporal Artery Scan Pulse Oximetry (%) 99 Oxygen Delivery Method Room Air Intake Visit Reasons: s/p perforated viscus stitch removal Intake Note: Pt presents to the office today for a s/p perforated viscus staple removal. Allergies aspirin (ASA) Allergy (Intermediate, Verified 04/29/25 10:09) ITCHY, HOT, AND HEADACHE calcium Allergy (Intermediate, Verified 04/29/25 10:09) Vomiting Penicillins Allergy (Intermediate, Verified 04/29/25 10:09) RASH tofacitinib (Xeljanz) Allergy (Intermediate, Verified 04/29/25 10:09) chest pain, headaches sulfasalazine Allergy (Unknown, Verified 04/29/25 10:09) unknown HPI HPI s/p perforated viscus stitch removal: Details: Nicky Lopez is a 64 year old female who was initially seen in the ED and found to have free intraperitoneal air on imaging. On 04/11/25, an exploratory laparotomy with Dr. Kemp and was found to have significant ecchymosis of the lesser curvature of the stomach suggestive of an underlying hematoma possibly gastric ulcer microperforation. She tolerated the procedure well and had an uncomplicated recovery course. Her H/H remained stable post op. She was discharged to home on 04/16/25 on omeprazole 40mg daily. She reports doing ok since the surgery. She has a plethora of complaints mainly of generalized body aches, back and foot pain. She reports her PCP has stopped prescribing her percocet for her chronic pain. She denies abdominal pain. She is tolerating a solid diet. She has moved her bowels since discharge to home but she reports she struggles with chronic constipation. She takes stool softeners to help. She has a follow up appointment with Dr. David scheduled. She has been taking her omeprazole daily. She has no concerns. [facility] Medical History (Updated 04/24/25 @ 00:02 by Background Daemon) Pneumoperitoneum Undifferentiated connective tissue disease Lipoma On allopurinol therapy Gout Breast calcification, right Positive PHYLLIS (antinuclear antibody) Fibromyalgia History of primary hyperparathyroidism Osteopenia Dyslipidemia Hypothyroidism LONA on CPAP Bronchial asthma Epidermal inclusion cyst Morbid obesity Gout of right foot PHYLLIS positive Seronegative rheumatoid arthritis Diabetes type 2, uncontrolled Surgical History (Updated 04/26/25 @ 16:59 by LEE Garza) S/P exploratory laparotomy (04/11/25) History of surgery Hx of excision of mass History of kidney surgery S/P breast lumpectomy H/O parathyroidectomy Hx of cholecystectomy H/O tubal ligation Family History Daughter History of breast cancer Father Cirrhosis Diabetes Arthritis Mother Arthritis Sister Diabetes Social History (Updated 04/12/25 @ 02:28 by PEDRO Lopez) Household Members: Children Housing: Apartment Alcohol intake: never Patient Tobacco Use Status: Former Tobacco user Tobacco use type: Cigarette Substance Use Type: Marijuana service: No Female Reproductive History Menstrual Age of Menarche: 11 Review of Systems Const All systems reviewed & are unremarkable except as noted in HPI and below Physical Exam Vital Signs: Last Vital Signs Temp 98.0 F 04/29/25 10:05 Pulse 75 04/29/25 10:05 BP 123/59 L 04/29/25 10:05 Pulse Ox 99 04/29/25 10:05 Oxygen Delivery Method Room Air 04/29/25 10:05 BMI result Body Mass Index 25.8 Const General: comfortable, no acute distress and alert Orientation/consciousness: patient oriented x3 Resp Effort & Inspection: normal respiratory effort GI Other: protuberant abdomen upper abd midline incision clean, amrik intact and removed uneventfully, no surrounding erythema or edema, wound well approximated Palpation (GI): Soft to palpation, Tenderness to palpation present (GI) (mild incisional) and no guarding Percussion: Yes normal to percussion Skin General skin exam: no rashes or lesions noted and no jaundice Neuro General: patient oriented x3 and moves all extremities Assessment & Plan Assessment & Plan (1) Gastric ulcer: Code(s): K25.9 - Gastric ulcer, unspecified as acute or chronic, without hemorrhage or perforation Category: Medical Qualifiers: Gastric ulcer chronicity: acute Gastric ulcer complication status: with both hemorrhage and perforation Qualified Code(s): K25.2 - Acute gastric ulcer with both hemorrhage and perforation Plan Ms. Lopez underwent exploratory laparotomy on 04/11/25 for perforated viscus found to have gastric hematoma and microperforation. She tolerated the procedure well. She continues to do well post operatively. Her incision is well healed without evidence of infection, all amrik were removed today uneventfully. She was educated to continue no heavy lifting and avoid strenuous activities for the next 4 weeks. She is to follow up in the office in 1 month. She is continue her omeprazole and to follow up with gastroenterology for further evaluation and treatment of her PUD. Coding Level of Care Code Global (84063) Diagnoses Acute gastric ulcer with hemorrhage and perforation K25.2 Gastric ulcer chronicity: acute Gastric ulcer complication status: with both hemorrhage and perforation
--- OUTSIDE RECORDS SUMMARY | 2025-04-29 10:36 | XMS_ITS | Clinical Summary ---
Author Organization [facility] Address [address] [facility] [address] [place] [address] Phone Care Team Providers Care Golf Course Laborer Name Role Phone [place], Gideon Primary Care [...] kidney disease 12/10/2024 Acute kidney failure 11/03/2023 Benign essential hypertension 12/30/2020 Chronic kidney disease stage 2 12/30/2020 Edema 12/30/2020 Morbid obesity 12/30/2020 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 mellitus 0 12/30/2020 Renal stone 12/30/2020 Presence of systemic lupus erythematosus (SLE) i nhibitor 12/30/2020 Resolved Problems Problem Noted Date Diagnosed Date Resolved Date 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 03/15/2022 04/08/2025 Encounters Date Type Department Care Team Description 04/09/2025 Office Communication [facility] [address] [place] [phone] Ben Cummins MD 04/08/2025 4:00 PM EDT Office Visit [facility] [address] [place] [phone] Ben Cummins MD Stage 3b chronic kidney disease (HCC) (Primary Dx); 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> (HCC); Benign essential hypertension 04/08/2025 Documentation Only [facility] [address] [phone] Ben Cummins MD 04/03/2025 Orders Only [facility] [address] [phone] Ben Cummins MD 03/07/2025 Orders Only [facility] [address] [place] [address] Ben Cummins MD Systemic lupus erythematosus-associate d antiphospholipid syndrome (HCC); Stage 3b chronic kidney disease (HCC); 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> (HCC); Benign essential hypertension 02/28/2025 4:00 PM EDT Office Visit [facility] [address] [place] [address] Ben Cummins MD Systemic lupus erythematosus-associate d antiphospholipid syndrome (HCC) (Primary Dx); Stage 3b chronic kidney disease (HCC); 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> (HCC); Benign essential hypertension from Last 3 Months Immunizations Immunization Administration Dates Next Due Influenza Split 07/25/2012 Influenza, Quadrivalent, Pre servative Free 07/23/2021,09/19/2020,07/18/2017,07/25 Influenza, Quadrivalent, Wit h Preservative 08/02/2018,07/23/2016 Influenza, Trivalent, Adjuvanted 08/20/2019 Triton SARS-COV-2 01/21/2021 Trendlines Group SARS-COV-2 09/23/2021 Pneumococcal Conjugate 13-Valent 08/16/2018 Pneumococcal [...] Sign Reading Time Taken Comments Blood Pressure 100/72 04/08/2025 4:03 PM EDT Pulse 68 02/28/2025 3:48 PM EDT Temperature - - Respiratory Rate - - Oxygen Saturation 99% 02/28/2025 3:48 PM EDT Inhaled Oxygen Concentration - - Weight 63.7 kg (140 lb 6.4 oz) 04/08/2025 4:03 P M EDT Height 157.5 cm (5' 2 ) 11/19/2019 12:00 PM EST Body Mass Index 25.68 11/19/2019 12:00 PM EST Plan of Treatment Upcoming Encounters Date Type Department Care Team (Late st Contact Info) Description 05/14/2025 3:45 PM EDT Office Visit [facility] [address] [phone] Reny Smith ARNP [address] [phone] 07/15/2025 4:00 PM EDT Office Visit [facility] [address] [place] [address] Ben Cummins MD [address] [phone] Health Maintenance Due Date Last Done Comments Breast Cancer Screening 1959 Colorectal Cancer Screening: Annual FOBT 2008 Colorectal Cancer Screening: Colonoscopy 2008 Colorectal Cancer Screening: Sigmoidoscopy 2008 Diabetes: Ophthalmology Exam 11/30/2020 Diabetes: Pedal Pulse Checked 11/30/2020 Diabetes: Sensory Foot Exam 11/30/2020 Diabetes: Visual Foot Exam 11/30/2020 Diabetes: Hemoglobin A1C 09/04/2024 08 024, 02/08/2024, 10/26/2023, Additional history exists Influenza [...] Procedure Name Priority Date/Time Associated Diagnosis Comments PROTEIN / CREATININE RATIO, URINE Routine 04/03/2025 10:38 AM EDT ALBUMIN, URINE, RANDOM Routine 04/03/2025 10:38 AM EDT URINALYSIS WITH MICROSCOPIC Routine 04/03/2025 10:38 AM EDT VITAMIN D 25 HYDROXY Routine 04/03/2025 10:21 AM EDT ALBUMIN Routine 04/03/2025 10:21 AM EDT MAGNESIUM Routine 04/03/2025 10:21 AM EDT PHOSPHATE ( PHOSPHORUS) Routine 04/03/2025 10:21 AM EDT CALCIUM Routine 04/03/2025 10:21 AM EDT CREATININE, BLOOD Routine 04/03/2025 10: 21 AM EDT BUN Routine 04/03/2025 10:21 AM EDT ELECTROLYTE PANEL Routine 04/03/2025 10: 21 AM EDT PTH, INTACT (HC) Routine 04/03/2025 10:2 1 AM EDT CBC AND DIFFERENTIAL Routine 04/03/2025 10:21 AM EDT HEMOGLOBIN A1C Routine 10/26/2023 9:17 AM EST Chronic kidney disease stage 2 from Last 3 Months or Most Recently Relevant to Health Maintenance Results * Protein, Total, Random Urine w/Creatinine (Protein/Creat Ratio) (04/03/2025 10:38 AM EDT) Protein Urine Random <7 <12 mg/dL See order comments Protein/Creatin ine Ratio, Urine TNP <0.2 See order comments Comment: Unable to calculate urine protein creatinine ratio due to low creatinine or protein result. 04/03/2025 10:3 8 AM EDT 04/03/2025 10:38 AM EDT Ben Cummins MD LAB URINE ORDERABLES Final Re sult Performing Organization Address [facility] Co de Phone Number [place] See order comments [place] [address] * Albumin, urine, random (04/03/2025 10:38 AM EDT) Creatinine, Urine 21.24 mg/dL Se e order comments Urine Microalbumin <5.0 mg/L See order comments Microalbumin/Crea tinine Ratio TNP <30 ug/mg cr See order comments Comment: Unable to calculate albumin/creatinine ratio due to low microalbumin or creatinine result. 04/03/2025 10:3 8 AM EDT 04/03/2025 10:38 AM EDT Ben Cummins MD LAB URINE ORDERABLES Final Re sult Performing Organization Address [facility] Co de Phone Number [place] See order comments [place] [address] * Urinalysis with microscopic (04/03/2025 10:38 AM EDT) Color Urine Yellow See orde r comments Appearance Urine Clear See order comments pH Urine 7.0 5.0 - 9.0 See order comments Glucose Urine Negative Negative mg/dL See order comments Blood, Urine Negative Negative See ord er comments Specific [place] Urine <=1.005 1.005 - 1.025 See order comments Protein Urine Negative Neg-Trace mg/dL See order comments Ketones, Urine Negative Negative mg/dL See order comments Nitrite, Urine Negative Negative See o rder comments Leukocyte Esterase Urine Negative Negative See order comments RBC, Urine 0-2 0 - 2 /HPF See orde r comments WBC 0-5 0 - 5 /HPF See order comments Squamous Epithelial, Urine 0-2 0 - 2 /HPF See order comments Bacteria, Urine None Seen None Seen See order comments Hyaline Casts, Urine 0-2 0 - 2 /LPF See order comments 04/03/2025 10:3 8 AM EDT 04/03/2025 10:38 AM EDT us Ben Cummins MD LAB URINE ORDERABLES Final Re sult [facility] See order comments [place] [address] * (ABNORMAL) Creatinine (04/03/2025 10:21 AM EDT) Creatinine Serum 1.54(H) 0.5 - 1.4 mg/dL See order comments eGFR (Calc) 34 See orde r comments Comment: Chronic Kidney Disease: Estimated GFR < 60 mL/min/1.73m2 Severe Kidney Disease: Estimated GFR < 15 mL/min/1.73m2 04/03/2025 10:2 1 AM EDT 04/03/2025 10:21 AM EDT us Ben Cummins MD LAB BLOOD ORDERABLES Final Re sult [place] See order comments [place] [address] * (ABNORMAL) PTH, Intact (04/03/2025 10:21 AM EDT) Parathyroid Hormone, Intact 165.9(H) 8.7 - 77.1 pg/mL See order comments 04/03/2025 10:2 1 AM EDT 04/03/2025 10:21 AM EDT us Ben Cummins MD LAB [id number] SOLICITED RESULTS Final Result Performing Organization Address [facility] de Phone Number [place] See order comments [place] [address] * Vitamin D 25 Hydroxy (04/03/2025 10:21 AM EDT) Vitamin D, 25-Hydroxy 75.9 >30 ng/mL See order comments Comment: Health Based Reference Values* < 20 ng/mL Deficient 20-30 ng/mL Insufficient > 30 ng/mL Sufficient *Anne PARRA. N Engl J Med. 2007;357:266-280 There is no well-established upper level of normal vitamin D levels. Some laboratories use 50 ng/mL as an upper limit of normal. However, toxicity is patient-dependent and may occur at any level. Careful correlation with the patient's presentation is necessary and, if there is concern for vitamin D toxicity, treatment should be considered irrespective of the serum level. Care must be taken in interpreting Vitamin D results from different laboratories and methodologies. Published data demonstrated that results from patients undergoing hemodialysis may show a negative bias when tested with various automated 25-OH vitamin D assays when compared to LC-MS/MS. When testing samples from patients whose predominant form of Vitamin D is Vitamin D2, such as patients receiving Vitamin D2 supplementation, results that are subtherapeutic should be confirmed with another method such as LC-MS/MS. 04/03/2025 10:2 1 AM EDT 04/03/2025 10:21 AM EDT us Ben Cummins MD LAB BLOOD ORDERABLES Final Re sult Performing Organization Address [facility] de Phone Number [place] See order comments [place] [address] * (ABNORMAL) CBC and Differential (04/03/2025 10:21 AM EDT) WBC 7.4 4.8 - 10.8 X10*3/uL See order comments RBC 4.19(L) 4.20 - 5.50 X10*6/uL See order comments Hgb 12.3 12.0 - 16.0 g/dl See order comments Hematocrit 38.8 37.0 - 47.0 % See order comments MCV 92.6 80.0 - 98.0 fL See order comments MCH 29.4 27.0 - 33.0 pg See order comments MCHC 31.7 31.0 - 35.0 g/dl See order comments RDW 14.5 11.0 - 16.0 % See order comments Platelets 274 160 - 400 X10*3/uL See order comments MPV 9.8 9.4 - 12.3 fL See order comments Neutrophils % Auto 67.1 45 - 73 % See order comments Immature Granulocytes 0.4 0.0 - 0.4 % See order comments Lymphocytes Relative 20.4 20 - 40 % See order comments Monocytes 7.0 2 - 11 % See order comments Eosinophils Relative 4.6(H) 0 - 4 % See order comments Basophils Relative 0.5 0 - 2 % See order comments nRBC Count 0.0 0.0 - 0.2 /100WBC See order comments Neutrophils Absolute 5.0 2.0 - 8.3 x10*3/uL See order comments Immature Grans (Absolute) 0.03 0.00 - 0.03 X10*3/uL See order comments Lymphocytes Absolute 1.5 1.2 - 4.9 X10*3/uL See order comments Monocytes Absolute 0.5 0.1 - 1.2 X10*3/uL See order comments Eosinophils Absolute 0.3 0.0 - 0.4 X10*3/uL See order comments Basophils Absolute 0.0 0.0 - 0.2 X10*3/uL See order comments NRBC Absolute 0.000 0.0 - 0.012 X10*3/uL See order comments 04/03/2025 10:2 1 AM EDT 04/03/2025 10:21 AM EDT us Ben Cummins MD LAB BLOOD ORDERABLES Final Re sult [place] See order comments [place] [address] * (ABNORMAL) BUN (04/03/2025 10:21 AM EDT) BUN 22(H) 9 - 16 mg/dL See order comments 04/03/2025 10:2 1 AM EDT 04/03/2025 10:21 AM EDT us Ben Cummins MD LAB BLOOD ORDERABLES Final Re sult Performing Organization Address [facility] Co md Phone Number [place] See order comments [place] [address] * Phosphorus (04/03/2025 10:21 AM EDT) Phosphorus, Serum 4.0 2.7 - 4.5 mg/dL See order comments 04/03/2025 10:2 1 AM EDT 04/03/2025 10:21 AM EDT us Ben Cummins MD LAB BLOOD ORDERABLES Final Re sult Performing Organization Address [facility] Phone Number [place] See order comments [place] [address] * Magnesium (04/03/2025 10:21 AM EDT) Magnesium 2.4 1.6 - 2.6 mg/dL See order comments 04/03/2025 10:2 1 AM EDT 04/03/2025 10:21 AM EDT us Ben Cummins MD LAB BLOOD ORDERABLES Final Re sult Performing Organization Address [facility] Phone Number [place] See order comments [place] [address] * Calcium (04/03/2025 10:21 AM EDT) Calcium 9.0 8.4 - 10.2 mg/dL See order comments 04/03/2025 10:2 1 AM EDT 04/03/2025 10:21 AM EDT us Ben Cummins MD LAB BLOOD ORDERABLES Final Re sult Performing Organization Address [facility] Phone Number [place] See order comments [place] [address] * Albumin (04/03/2025 10:21 AM EDT) Albumin 3.9 3.5 - 5.0 g/dL See order comments 04/03/2025 10:2 1 AM EDT 04/03/2025 10:21 AM EDT us Ben Cummins MD LAB BLOOD ORDERABLES Final Re sult Performing Organization Address [facility] de Phone Number [place] See order comments [place] [address] * (ABNORMAL) Electrolyte panel (04/03/2025 10:21 AM EDT) Sodium 144 135 - 145 mmol/L See order comments Potassium 4.1 3.3 - 5.1 mmol/L See order comments Chloride 104 96 - 108 mmol/L See order comments Bicarbonate (CO2) 30(H) 22 - 29 mmol/L See order comments Anion Gap 14 12 - 20 See order comments 04/03/2025 10:2 1 AM EDT 04/03/2025 10:21 AM EDT us Ben Cummins MD LAB BLOOD ORDERABLES Final Re sult Performing Organization Address [facility] de Phone Number [place] See order comments [place] [address] * Hemoglobin A1c (10/26/2023 9:17 AM EST) Hemoglobin A1C 5.6 <6.0 % REINALDO Comment: Hemoglobin A1C Reference Range Adults: 4.8 - 6.0 % Non diabetic: < 6.0 % Goal: < 7.0 % Additional Action Suggested: > 8.0 % Note: Hemoglobin A1c results are invalid for patients with abnormal amounts of HbF. Blood transfusions may impact the HbA1c concentration in the patient sample. Estimated Average Glucose 114 mg/dL REINALDO Comment: eAG = Estimated average glucose which is %A1C expressed as average glucose, using the formula of the [id number] Average Glucose study (ADAG), Diabetes Care, Vol.31,#8, May. 2007 Blood specimen (specimen) Venous blood / Unknown 10/26/2023 9:17 AM EST 10/26/2023 9:17 AM EST us Ben Cummins MD LAB BLOOD ORDERABLES Final Re sult REINALDO from Last 3 Months or Most Recently Relevant to Health Maintenance [place] Sub[place] Plan / Payer (Ef fective 2020-Present) Name:Nicky Lopez Relation to Subscriber:Self Name:Nicky Lopez Payer ID:Not on file Group ID:Not on file Type:Not on file Address: [address] Medicare Care Teams Golf Course Laborer Relationship Specialty Start Date End Date Gideon Mccormack PCP - General Internal Medicine 12/30/20
== END 2025-04-29 10:31 | disposition home or self-care (01) ==
LOC: HO.HGS 09:59
PROVIDERS: PCP General Practice; Visit Provider Physician Assistant Surgical
DX: K25.2 Acute gastric ulcer with both hemorrhage and perforation (principal)
CPT/HCPCS: 99024

== ENCOUNTER → 2025-04-29 09:59 | Outpatient (BNVA) | payer MEDICARE, MEDICAID, SELFPAY | PROVIDERS: PCP General Practice; Visit Provider Physician Assistant Surgical | DX: Z48.1 Encounter for planned postprocedural wound closure (principal); K25.2 Acute gastric ulcer with both hemorrhage and perforation; Z98.890 Other specified postprocedural states | CPT/HCPCS: 99212 ==

== ENCOUNTER 2025-05-30 10:27 | Outpatient (AMB) | payer MEDICARE, MEDICAID, SELFPAY ==
--- NOTE | 2025-05-30 10:29 | MHC.OFFVIS ---
Vital Signs 05/30/25 10:41 Height 5 ft 2 in Weight 144 lb BMI 26.3 BP 138/67 Blood Pressure Location Rt brachial Position Sitting Pulse 70 Intake Visit Reasons: one month s/p perforated viscus Intake Note: Patient here for 1mo follow up s/p exploratory laparotomy 04-11-2025. Patient c/o: constipation. Taking fiber, prune, cranberry juice. Denies nausea, vomiting. Reports incisions healed well. Sees Dr. David for GI concerns. [facility] (AT) 04-29-2025 Mimeographer Required: Yes Information Interpreted: clinical only (Keren [id number]) Accompanied by: Self / Same As Patient Allergies aspirin (ASA) Allergy (Intermediate, Verified 05/30/25 10:42) ITCHY, HOT, AND HEADACHE calcium Allergy (Intermediate, Verified 05/30/25 10:42) Vomiting Penicillins Allergy (Intermediate, Verified 05/30/25 10:42) RASH tofacitinib (Xeljanz) Allergy (Intermediate, Verified 05/30/25 10:42) chest pain, headaches sulfasalazine Allergy (Unknown, Verified 05/30/25 10:42) unknown HPI HPI one month s/p perforated viscus: Details: Electronic decubitus microsoft exchange administrator used for this evaluation. Doing well overall. Still struggling with constipation goes every 2 days. Has continued with prune juice, hydration. Is seeing GI in July. Denies nausea or vomiting. Has slowly started to resume activity denies pain in the abdomen [facility] Medical History (Updated 04/24/25 @ 00:02 by Yonathan Manzano) Pneumoperitoneum Undifferentiated connective tissue disease Lipoma On allopurinol therapy Gout Breast calcification, right Positive PHYLLIS (antinuclear antibody) Fibromyalgia History of primary hyperparathyroidism Osteopenia Dyslipidemia Hypothyroidism LONA on CPAP Bronchial asthma Epidermal inclusion cyst Morbid obesity Gout of right foot PHYLLIS positive Seronegative rheumatoid arthritis Diabetes type 2, uncontrolled Surgical History (Updated 04/26/25 @ 16:59 by LEE Garza) S/P exploratory laparotomy (04/11/25) History of surgery Hx of excision of mass History of kidney surgery S/P breast lumpectomy H/O parathyroidectomy Hx of cholecystectomy H/O tubal ligation Family History Daughter History of breast cancer Father Cirrhosis Diabetes Arthritis Mother Arthritis Sister Diabetes Social History (Updated 04/12/25 @ 02:28 by Nallely Alexandra [facility]) Household Members: Children Housing: Apartment Alcohol intake: never Patient Tobacco Use Status: Former Tobacco user Tobacco use type: Cigarette Substance Use Type: Marijuana service: No Female Reproductive History Menstrual Age of Menarche: 11 Review of Systems Const All systems reviewed & are unremarkable except as noted in HPI and below Physical Exam Vital Signs: Last Vital Signs Pulse 70 05/30/25 10:41 BP 138/67 05/30/25 10:41 BMI result Body Mass Index 26.3 Const General: comfortable and no acute distress Orientation/consciousness: patient oriented x3 Resp Effort & Inspection: normal respiratory effort and able to speak in complete sentences GI Other: Epigastric midline incision healed well Inspection: No distended Palpation (GI): Soft to palpation, not firm, nontender, no guarding and not rigid Neuro General: patient oriented x3 Assessment & Plan Assessment & Plan (1) Gastric ulcer: Code(s): K25.9 - Gastric ulcer, unspecified as acute or chronic, without hemorrhage or perforation Category: Medical Qualifiers: Gastric ulcer chronicity: acute Gastric ulcer complication status: with both hemorrhage and perforation Qualified Code(s): K25.2 - Acute gastric ulcer with both hemorrhage and perforation Plan Ms. Lopez underwent exploratory laparotomy on 04/11/25 for perforated viscus found to have gastric hematoma and microperforation. She tolerated the procedure well. She continues to do well post operatively. Only concern is constipation she has tried increasing fiber, per induced. It still has not infrequent bowel movements. She has seen GI in July. I recommended that she increase hydration, I will also send for MiraLax to be taken once daily until she produces a bowel movement, as needed after for further constipation. Patient understands this plan. On exam there abdomen is soft and benign incisions are well healed at this point. She has slowly started to resume her activity, I recommended that she listen to her body as she increases her activity level. At this point she had no longer has any restrictions. Patient can follow up as needed for future concerns, she is not requiring routine follow up Medications: New polyethylene glycol 3350 (Miralax) Take one dose daily until you pass a bowel movement 17 grams PO DAILY 238 grams 0RF Coding Level of Care Code Global (67961) Diagnoses Acute gastric ulcer with hemorrhage and perforation K25.2 Gastric ulcer chronicity: acute Gastric ulcer complication status: with both hemorrhage and perforation
[2025-05-30 10:41] VITALS: BP 138/67; PULSE 70; BMI 26.3
--- OUTSIDE RECORDS SUMMARY | 2025-05-30 11:11 | XMS_ITS | Patient Health Record ---
Author Organization [facility] Address [address] [place] [address] Care Team Providers Care Fermenter Helper Name Role Phone Sue Alicia M.D. Primary Care Provider Isael Camacho Unavailable [phone] Allergies Allergen (clinical drug ingredient) Drug/Non Drug Allergy documented on EMR Reaction Allergy Type Onset Date Status Penicillin Unknown Drug Allergy Active aspirin Aspirin Unknown Drug Allergy Active Reason For Referral No Information Medications Medication SIG (Take, Route, Frequency, Duration) Notes Start Date End Date Status Plaquenil 200 MG 1 tablet with food o r milk Orally Once a day Active Prednisone 1 tab Oral Active HumaLOG 100 UNIT/ML Subcutaneous Active glipiZIDE 5 MG 1 tablet Orally Once a day Active Valsartan 80 MG 1 tablet Orally Once a day Active Furosemide 40 MG 1 tablet Orally Twic e a day Active Spironolactone 25 MG 1 tablet Orally Twi ce a day Active HYDROcodone-Acetaminophen 5-325 MG 1 tablet as needed Orally every 6 hrs Active Gabapentin 300 MG 1 capsule Orally onc e a day Active Dulcolax 5 MG 4 as directed Orally as directed for 1 days 03/31/2016 Active Cyclobenzaprine HCl 10 MG 1 tablet Orall y once a day Active MiraLax 1 as directed Orally a s directed for 1 days 03/31/2016 Active PriLOSEC OTC 20 MG 2 tablets Orally Onc e a day Active Problems Problem Type SNOMED Code ICD Code Onset Dates Problem Status W/U Status Risk Notes Problem 530584385 Encounter for screening for malignant neoplasm of colon (Z12.11) Active confirmed Problem Encounter for screening for malignant neoplasm of rectum (Z12.12) Active confirmed Problem 575039645 Gastroesophageal reflux disease without esophagitis (K21.9) Active confirmed Problem 830032328 History of colon polyps (Z86.010) Active confirmed Problem 64856781 Constipation, unspecified constipation type (K59.00) Active confirmed Plan Of Treatment Future Test Test Name Order Date COLONOSCOPY 03/31/2016 Next Appt Details Provider Name:Isael David , 07/16/2025 02:40:00 PM, [address] [facility], [address], [place], [address], Insurance Providers Payer Name Payer Address Payer Phone Subscriber Number Group Number Insured Name Patient Relationship to Insured Coverage Start Date Coverage End Date MEDICARE OF [place] [address] [place] [phone] [id number] CHERIE MELGAR Self - patient is the insured MEDICAID OF [facility] [address] [place] [phone] [id number] MELGAR, CHERIE Self - patient is the insured Medical (General) History Medical History History ICD Code Colonoscopy 05/2011--negative for polyps--mild sigmoid diverticulosis and small int. hemorrhoids GERD-EGD in 05/2011--small HH--no esophag itis Colon polyps removed in 2005 at [facility] --but not recovered for pathology--they looked adenomatous according to the colonoscopy report Depression Hypertension Renal artery stenosis--s/p angioplasty IDDM Sleep apnea--uses CPAP Denies VA,CVA,Lung disease,renal disease Lupus Fibromyalgia Arthritis Surgical History Surgery Date(Month/Year) Lap CCY BTL Parathyroidectomy Right breast biopsy--benign
--- OUTSIDE RECORDS SUMMARY | 2025-05-30 11:11 | XMS_ITS | Clinical Summary ---
Author Organization [facility] Address [address] [facility] [address] [place] [address] Phone Care Team Providers Care Millinery Salesperson Name Role Phone Sue Alicia MD Primary Care Provider [phone] Allergies Active Allergy Reactions Criticality Noted Date [...] mouth 1 (one) time each day Active Victoza 18 MG/3ML injection INJECT 1.8 MG SUBCUTANEOUSLY EVERY DAY 12/05/19 21 Active omeprazole (PriLOSEC) [address] capsule Take 1 capsule by mouth 1 (one) time each day Active HYDROcodone-jarret taminophen (NORCO) 5-325 MG per tablet Take 1 tablet by mouth if needed Active metFORMIN XR (GLUCOPHAGE-XR) 500 MG 24 hr tablet Take 2 tablets by mouth 2 (two) times a day 12/11/19 21 2024 Discontinue d(Discontin ued by another clinician (does not appear on AVS)) insulin lispro (HumaLOG) 100 UNIT/ML injection 2024 Discontinue d(Med List Maintenance ) irbesartan (AVAPRO) 75 MG tablet TAKE 1 TABLET BY MOUTH EVERY MORNING 90 tablet 1 11/01/19 25 2024 Discontinue d(Med List Maintenance ) furosemide (LASIX) 40 MG tablet TAKE 1 TABLET BY MOUTH TWICE DAILY IN THE MORNING AND IN THE EVENING 180 tablet 1 11/01/19 25 2024 Discontinue d(Med List Maintenance ) furosemide (LASIX) 40 MG tabletIndicatio ns:Stage 3 chronic kidney disease, not otherwise specified (HCC),Hypertens ion,Type 2 diabetes mellitus with diabetic chronic kidney disease (HCC),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> (HCC),Benign essential hypertension Take 1 tablet (40 mg total) by mouth every morning and evening 180 tablet 1 11/01/19 25 2024 Discontinue d(Duplicate order (does not appear on AVS)) irbesartan (AVAPRO) 75 MG tabletIndicatio ns:Stage 3 chronic kidney disease, not otherwise specified (HCC),Hypertens ion,Type 2 diabetes mellitus with diabetic chronic kidney disease (HCC),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> (HCC),Benign essential hypertension Take 1 tablet (75 mg total) by mouth 1 (one) time each day 90 tablet 1 11/01/19 25 2024 Discontinue d(Med List Maintenance ) valsartan (DIOVAN) 80 MG tablet Take 80 mg by mouth 1 (one) time each day 2024 Discontinue d(Med List Maintenance ) Active Problems Problem Noted Date Diagnosed Date Stage 3b chronic kidney disease 12/10/2024 Acute nontraumatic kidney injury, not otherwise specified 11/03/2023 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 03/15/2022 Benign essential hypertension 12/30/2020 Chronic kidney disease stage 2 12/30/2020 Edema 12/30/2020 Morbid obesity 12/30/2020 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 mellitus 0 12/30/2020 Renal stone 12/30/2020 Presence of systemic lupus erythematosus (SLE) i laibitor 12/30/2020 Encounters Date Type Department Care Team Description 05/14/2025 3:45 PM EDT Office Visit [facility] [address] [place] [phone] Reny SmithDILIA Acute nontraumatic kidney injury, not otherwise specified (HCC) (Primary Dx); Stage 3b chronic kidney disease (HCC); Benign essential hypertension 04/09/2025 Office Communication [facility] [address] [address] Ben Cummins MD 04/08/2025 4:00 PM EDT Office Visit [facility] [address] [place] [address] Ben Cummins MD Stage 3b chronic kidney disease (HCC) (Primary Dx); 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> (HCC); Benign essential hypertension 04/08/2025 Documentation Only [facility] [address] [address] Ben Cummins MD 04/03/2025 Orders Only [facility] [address] [address] Ben Cummins MD 03/07/2025 Orders Only [facility] [address] [place] [address] Ben Cummins MD Systemic lupus erythematosus-associate d antiphospholipid syndrome (HCC); Stage 3b chronic kidney disease (HCC); 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> (HCC); Benign essential hypertension 02/28/2025 4:00 PM EDT Office Visit [facility] [address] [place] [address] Ben Cummins MD Systemic lupus erythematosus-associate d [...] Sign Reading Time Taken Comments Blood Pressure 102/76 05/14/2025 4:11 PM EDT Pulse 68 05/14/2025 4:11 PM EDT Temperature - - Respiratory Rate - - Oxygen Saturation 100% 05/14/2025 4:11 PM EDT Inhaled Oxygen Concentration - - Weight 63.5 kg (140 lb) 05/14/2025 4:11 PM EDT Height 157.5 cm (5' 2 ) 11/19/2019 12:00 PM EST Body Mass Index 25.61 11/19/2019 12:00 PM EST Plan of Treatment Upcoming Encounters Date Type Department Care Team (Late st Contact Info) Description 07/15/2025 4:00 PM EDT Office Visit [facility] [address] [place] [address] Ben Cummins MD [address] [facility] [address] [place] [address] Health Maintenance Due Date Last Done Comments Breast Cancer Screening 1959 Colorectal Cancer Screening: Annual FOBT 2008 Colorectal Cancer Screening: Colonoscopy 2008 Colorectal Cancer Screening: Sigmoidoscopy 2008 Diabetes: Ophthalmology Exam 11/30/2020 Diabetes: Pedal Pulse Checked 11/30/2020 Diabetes: Sensory Foot Exam 11/30/2020 Diabetes: Visual Foot Exam 11/30/2020 Influenza Vaccine (#1) 2025 , 09/19/2020, 08/20/2019, Additional history exists Diabetes: Hemoglobin A1C 07/20/2025 025, 06/04/2024, 02/08/2024, Additional history exists Pneumococcal Vaccine: 50+ Years Completed 04/20/2023, 08/16/2018, 10/04/2017 Pneumococcal Vaccine: Peds (0 to 5 Years) and At-Risk Patients (6 to 49 Years) Discontinued 04/20/2023, 08/16/2018, 10/04/2017 Hepatitis B Vaccine Aged Out No longe r eligible based on patient's age to complete this topic Procedures Procedure Name Priority Date/Time Associated Diagnosis Comments EXT RESULT ENTRY Routine 04/14/2025 PROTEIN / CREATININE RATIO, URINE Routine 04/03/2025 [...] Recently Relevant to Health Maintenance Results * (ABNORMAL) EXT RESULT ENTRY (04/14/2025) Hemoglobin 10.4(A) 12.0 - 16.0 Hematocrit 31.5(A) 36.0 - 46.0 Platelets 233 150 - 399 10*3/UL Sodium 143 137 - 147 Potassium 3.9 3.4 - 5.5 Chloride 112.0(A) 99.0 - 108.0 Carbon Dioxide 25 mmol/L Anion Gap 10 <=30 MMOL/L BUN 11 4 - 21 mg/dL Creatinine 1.28(A) 0.50 - 1.10 mg/dL Calcium 8.3(A) 8.7 - 10.7 mg/dL eGFR 42 04/14/2025 Historical Provider LAB BLOOD ORDERABLES Angelique l Result * Protein, Total, Random Urine w/Creatinine (Protein/Creat [...] ORDERABLES Final Re sult Performing Organization Address [facility] Co de Phone Number [place] See order comments [place] [address] * Albumin, urine, random (04/03/2025 10:38 AM [...] ORDERABLES Final Re sult Performing Organization Address [facility] de Phone Number [place] See order comments [place] [address] * Urinalysis with microscopic (04/03/2025 10:38 AM EDT) Color Urine Yellow See orde r comments Appearance Urine Clear See order comments pH Urine 7.0 5.0 - 9.0 See order comments Glucose Urine Negative Negative mg/dL See order comments Blood, Urine Negative Negative See ord er comments Specific [place] Urine <=1.005 1.005 - 1.025 See order [...] ORDERABLES Final Re sult Performing Organization Address [facility] de Phone Number [place] See order comments [place] [address] * (ABNORMAL) Creatinine (04/03/2025 10:21 AM EDT) Creatinine Serum 1.54(H) 0.5 - 1.4 mg/dL See order comments eGFR (Calc) 34 See orde r comments Comment: Chronic Kidney Disease: Estimated GFR < 60 mL/min/1.73m2 Severe Kidney Disease: Estimated GFR < 15 mL/min/1.73m2 04/03/2025 10:2 1 AM EDT 04/03/2025 10:21 AM EDT Ben Cummins MD LAB BLOOD ORDERABLES Final Re sult Performing Organization Address [facility] de Phone Number [place] See order comments [place] [address] * (ABNORMAL) PTH, Intact (04/03/2025 10:21 AM EDT) Parathyroid Hormone, Intact 165.9(H) 8.7 - 77.1 pg/mL See order comments 04/03/2025 10:2 1 AM EDT 04/03/2025 10:21 AM EDT Ben Cummins MD LAB [id number] SOLICITED RESULTS Final Result Performing Organization Address [facility] de Phone Number [place] See order comments [place] [address] * Vitamin D 25 Hydroxy (04/03/2025 10:21 [...] order comments [place] [address] * (ABNORMAL) CBC and Differential (04/03/2025 10:21 [...] 1 AM EDT 04/03/2025 10:21 AM EDT Ben Cummins MD LAB BLOOD ORDERABLES Final Re sult Performing Organization Address [facility] Co de Phone Number [place] See order comments [place] [address] * (ABNORMAL) BUN (04/03/2025 10:21 AM EDT) BUN 22(H) 9 - 16 mg/dL See order comments 04/03/2025 10:2 1 AM EDT 04/03/2025 10:21 AM EDT Ben Cummins MD LAB BLOOD ORDERABLES Final Re sult Performing Organization Address [facility] Co de Phone Number [place] See order comments [place] [address] * Phosphorus (04/03/2025 10:21 AM EDT) Phosphorus, Serum 4.0 2.7 - 4.5 mg/dL See order comments 04/03/2025 10:2 1 AM EDT 04/03/2025 10:21 AM EDT us Ben Cummins MD LAB BLOOD ORDERABLES Final Re sult Performing Organization Address [facility] Co de Phone Number [facility] See order comments [place] [address] * Magnesium (04/03/2025 10:21 AM EDT) Magnesium 2.4 1.6 - 2.6 mg/dL See order comments 04/03/2025 10:2 1 AM EDT 04/03/2025 10:21 AM EDT us Ben Cummins MD LAB BLOOD ORDERABLES Final Re sult Performing Organization Address [facility] de Phone Number [place] See order comments [place] [address] * Calcium (04/03/2025 10:21 AM EDT) Calcium 9.0 8.4 - 10.2 mg/dL See order comments 04/03/2025 10:2 1 AM EDT 04/03/2025 10:21 AM EDT us Ben Cummins MD LAB BLOOD ORDERABLES Final Re sult Performing Organization Address [facility] de Phone Number [place] See order comments [place] [address] * Albumin (04/03/2025 10:21 AM EDT) Albumin 3.9 3.5 - 5.0 g/dL See order comments 04/03/2025 10:2 1 AM EDT 04/03/2025 10:21 AM EDT us Ben Cummins MD LAB BLOOD ORDERABLES Final Re sult Performing Organization Address [facility] de Phone Number [place] See order comments [place] [address] * (ABNORMAL) Electrolyte panel (04/03/2025 10:21 AM EDT) Sodium 144 135 - 145 mmol/L See order comments Potassium 4.1 3.3 - 5.1 mmol/L See order comments Chloride 104 96 - 108 mmol/L See order comments Bicarbonate (CO2) 30(H) 22 - 29 mmol/L See order comments Anion Gap 14 12 - 20 See order comments 04/03/2025 10:2 1 AM EDT 04/03/2025 10:21 AM EDT Ben Cummins MD LAB BLOOD ORDERABLES Final Re sult [place] See order comments [place] [address] * Hemoglobin A1c (10/26/2023 9:17 AM EST) [...] average glucose, using the formula of the M4T-Enoytbn Average Glucose study (ADAG), Diabetes Care, Vol.31,#8, May. 2007 Blood specimen (specimen) Venous blood / Unknown 10/26/2023 9:17 AM EST 10/26/2023 9:17 AM EST Ben Cummins MD LAB BLOOD ORDERABLES Final Re sult [place] from Last 3 Months or Most Recently Relevant to Health Maintenance Insurance [address] [place] [id number] Medicaid [place] [address] [place] [address] [place] Care Teams Millinery Salesperson Relationship Specialty Start Date End Date Sue Alicia MD [address] [place] [id number] PCP - General Woven Label Designer 05/14/25
--- OUTSIDE RECORDS SUMMARY | 2025-05-30 11:11 | XMS_ITS | Clinical Summary ---
Author Organization [address] [facility] Address [address] [place] [address] Phone Care Team Providers Care Wallpaper Printer Name Role Phone Physician, No Pcp Primary Care Provider Unavaila ble Encounters Date Type Department Care Team Description 03/12/2025 Lab Requisition [facility] [address] [facility] [place] [address] Noe Falk MD Persistent proteinuria, unspecified; Chronic kidney disease, stage 4 (severe) (CMS/HCC V24, CMS/HCC V28) from Last 3 Months Social History Tobacco Use Types Packs/Day Years [...] 2) 2009 Colorectal Cancer Screening: Colonoscopy 06/26/2024 Hepatitis C Screening 06/26/2024 Medicare Annual Wellness Visit 06/26/2024 Osteoporosis Screening (Bone Density Screening) 06/26/2024 Social Influencers of Health Screening 06/26/2024 COVID-19 Vaccine ( - 2023-2 5 season) 2024 Falls Risk Assessment 2024 Depression Screening 10/31/2024 Influenza Vaccine (#1) 2025 RSV Immunization Adult Patie nts (1 [...] Procedure Name Priority Date/Time Associated Diagnosis Comments AP KIDNEY BIOPSY Routine 03/12/2025 Persistent proteinuria, unspecified Chronic kidney disease, stage 4 (severe) (CMS/[facility] V24, CMS/[facility] V28) TISSUE EXAM Routine 03/12/2025 Persistent proteinuria, unspecified Chronic kidney disease, stage 4 (severe) (CMS/HCC V24, CMS/HCC V28) from Last 3 Months Results * AP Kidney biopsy (03/12/2025) Scan Result See Scanned Result 04/02/2025 10:06 PM EDT EXTERNAL LAB (NON-INTERFAC ED) Tissue Left kidney structure / Unknown 03/12/2025 03/12/2025 3:19 PM EDT us Noe Falk MD LAB PATHOLOGY ORDERABLES Final Result EXTERNAL LAB (NON-INTERFACED) * Tissue Exam (03/12/2025) Addendum 2 [facility], Department of Pathology, [place], [place] (CLIA#[id number]) sent an addendum report to add Electron Microscopy results. (See scanned addendum report from [facility], [place], [place]) 04/10/2025 10:30 AM [facility] Addendum electronically signed by Mckinley Chavez MD on 04/10/2025 at 10:30 AM Addendum This case was sent to [facility], Department of Pathology, [place], [place] (CLIA: [id number]). 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 Cummins on 03/14/2025 at 10:30am Final Diagnosis by Edith Chappell M.D., Ph.D., Electronically signed on Tuesday April 01, 2025 at 10:34:39AM (See scanned report for full kidney biopsy diagnosis from [facility], [place], [place]) 04/10/2025 10:30 AM [facility] Addendum electronically signed by Mckinley Chavez MD on 04/02/2025 at 11:30 AM Final Diagnosis Kidney, left-biopsies for light, immunofluorescence and electron microscopy: -Submitted to [facility], [place], [place]. -See addendum report 04/10/2025 10:30 AM [facility] Clinical Information 3 18g core samples Systemic lupus erythematosus-associ ated antiphospholipid syndrome, type II diabetes, stage 3 CKD 04/10/2025 10:30 AM [facility] Gross Description A. Kidney, Left, 3 18g core samples: Labeled kidney L . Received in formalin is a 1.3 x 0.1 cm be-pink soft tissue core. Received in Phu fixative is a 1.3 x 0.1 cm be-pink soft tissue core. Received in glutaraldehyde is a 0.9 x 0.1 cm be-pink soft tissue core. The specimen is entirely submitted to [facility] for analysis. CARON 04/10/2025 10:30 AM EDT [facility] Disclaimer Unless otherwise specified, all tissue is 10% NB formalin fixed and paraffin embedded. 04/10/2025 10:30 AM EDT [facility] Tissue Left kidney structure / Unknown 03/12/2025 03/12/2025 3:19 PM EDT us Noe Falk MD LAB PATHOLOGY ORDERABLES Edited Result - Final [facility] [address] [place] [address], from Last 3 Months Insurance MEDICARE MEDICAID - [place] Care Teams Wallpaper Printer Relationship Specialty Start Date End Date Physician, No Pcp PCP - General 03/20/25
--- OUTSIDE RECORDS SUMMARY | 2025-05-30 11:11 | XMS_ITS | Encounter Summary ---
Author Organization [employer] Address [address] [place] [address] Care Team Providers Care Child Support Officer Name Role Phone Sue Alicia MD Primary Care Provider [phone] Reason for Visit * Reason Onset Date Comments Referral 04/02/2024 Encounter Details Date Type Department Care Team ([facility] st Contact Info) Description 04/02/2024 Telephone [facility] [address] [place] [address] Sue Alicia MD [address] [place] [address] Referral Social History Tobacco Use Types Packs/Day [...] : DATE: n/a TIME: n/a Address: [address] [place] [address] Visits: all year long 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: [facility] sales professional bilingual Type of Specialist: sales professional bilingual Provider : Rhea Locke MD Address: [address] [place] [address] Fax #: [phone] documented in this encounter Plan of Treatment Upcoming Encounters Date Type Department Care Team (Late st Contact Info) Description 07/03/2025 10:00 AM EDT Clinical Support [facility] [address] [place] [address] [phone] Cookie Alcaraz RN 07/30/2025 11:30 AM EDT Office Visit [facility] [address] [place] [phone] Sue Alicia MD [address] [place] [address] [phone] documented as of this encounter Visit Diagnoses Not on filedocumented in this encounter Additional Health Concerns Assessment Noted Time PHQ-9 Depression Total Score: 19 024 2:37 PM EDT documented as of this encounter Care Teams Child Support Officer Relationship Specialty Start Date End Date Sue Ailcia MD [address] [place] [address] PCP - General Family Medicine 08/09/23 documented as of this encounter
--- OUTSIDE RECORDS SUMMARY | 2025-05-30 11:11 | XMS_ITS | Clinical Summary ---
Author Organization [facility] Address [address] [place] [phone] Phone Care Team Providers Care Terminal Gauger Name Role Phone Sue Alicia MD Primary Care Provider + Allergies Active Allergy Reactions Criticality Noted Date Comments Aspirin Unknown 12/30/2020 Doxycycline 03/15/2022 Other reaction(s): pt. unsure Iodixanol Rash Low 03/15/2022 Penicillins Unknown 12/30/2020 Sulfasalazine 03/07/2024 Tofacitinib 03/07/2024 Medications irbesartan (AVAPRO) 75 MG tablet Take 75 mg by mouth daily. Active valerian root extract 150 mg Cap Take by mouth. Activ e cholecalcifero l (VITAMIN D3) 25 MCG (1,000 unit) tablet Take 1,000 Units by mouth daily. Active furosemide (LASIX) 40 MG tablet Take 40 mg by mouth. Active omeprazole (PRILOSEC) 20 MG capsule Take 20 mg by mouth daily. 2 Active albuterol 90 mcg/actuation inhaler Inhale 2 puffs into the lungs every 6 (six) hours as needed. 3 Active allopurinol (ZYLOPRIM) 100 MG tablet Take 1 tablet by mouth nightly at bedtime. 3 Active ARIPiprazole (ABILIFY) 10 MG tablet Take 1 tablet by mouth daily. Active atorvastatin (LIPITOR) 20 MG tablet Take 1 tablet by mouth every morning. 2 Active levothyroxine (SYNTHROID, LEVOTHROID) 75 MCG tablet Take 1 tablet by mouth every morning. 3 Active naloxone (NARCAN) 4 mg/actuation nasal spray 4 mg by Nasal route. 3 Active leflunomide (ARAVA) 20 MG tablet Take 1 tablet by mouth daily. Active fluticasone propionate (FLOVENT HFA) 220 mcg/actuation inhaler Inhale 1 puff into the lungs every 12 (twelve) hours. Active calcium citrate 250 mg calcium Tab TAKE 1 TABLET BY MOUTH TWICE DAILY IN THE MORNING AND IN THE EVENING 2 Active alendronate (FOSAMAX) 70 MG tablet Take 1 tablet by mouth every 7 days. 3 Active cyclobenzaprin e (FLEXERIL) 10 MG tablet Take 10 mg by mouth nightly at bedtime. at bedtime. 3 Active gabapentin (NEURONTIN) 300 MG capsule Take 1 capsule by mouth 3 (three) times a day. 3 Active VICTOZA 3-LLOYD 0.6 mg/0.1 mL (18 mg/3 mL) PnIj INJECT 1.8mg SUBCUTANEOUSLY EVERY 24 HOURS 3 Active metFORMIN (GLUCOPHAGE-XR ) 500 MG 24 hr tablet TAKE 2 TABLETS BY MOUTH TWICE DAILY IN THE MORNING AND EVENING 3 Active metoprolol tartrate (LOPRESSOR) 25 MG tablet Take 1 tablet by mouth 2 (two) times a day. 3 Active predniSONE (DELTASONE) 5 MG tablet Take 5 mg by mouth every morning. 3 Active valsartan (DIOVAN) 80 MG tablet Take 80 mg by mouth daily. Active clotrimazole (LOTRIMIN) 1 % cream Apply topically 2 (two) times a day. 30 g 2 4 Active Active Problems Problem Noted Date Diagnosed Date Abdominal pannus 03/07/2024 Intertrigo 03/07/2024 Diastolic CHF, chronic 03/07/2024 Rheumatoid arthritis involving multiple sites Encounters Date Type Department Care Team Description 03/12/2025 12:24 PM EDT - 03/12/2025 11:59 PM EDT Hospital Encounter [facility] Anatomic Pathology [address] [place] [id number] Discharge Disposition: Home or Self Care from Last 3 Months Immunizations Immunization Administration Dates Next Due Pneumococcal conjugate PCV13 08/16/2018 Pneumococcal polysaccharide PPSV23 10/04/2017 Tdap 10/04/2017 Zoster recombinant 03/26/2022 Family History Medical History Relation Comments Kidney disease Brother Hypertension Father Hypertension Mother Stroke Mother Relation Status Comments Brother Father Mother Alive Social History Tobacco Use Types Packs/Day Years Used Date Smoking Tobacco: Former Cigarettes 1 988 - 1997 Tobacco Cessation:Counseling Given: Not Answered Alcohol Use Standard Drinks/Week Comments Not Currently 0 (1 standard drink = 0.6 oz pur e alcohol) Education Answer Date Recorded Are you interested in more education? Not on aldo e 02/26/2023 Are you concerned about learning? Not on file 02/26/2023 No 02/26/2023 No 02/26/2023 Digital Access Answer Date Recorded No 03/29/2023 No 03/29/2023 Reliable internet access at home? Not on file 03/29/2023 Device with a working camera? Not on file Comments Unknown Sex and Gender Information Value Date Recorded Sex Assigned at Not on file Legal Sex Female 11:10 AM EST Gender Identity Not on file Sexual Orientation Not on file Last Filed Vital Signs Vital Sign Reading Time Taken Comments Blood Pressure 92/58 03/07/2024 8:50 AM EDT Pulse 64 03/07/2024 8:50 AM EDT Temperature - - Respiratory Rate - - Oxygen Saturation - - Inhaled Oxygen Concentration - - Weight 62.3 kg (137 lb 6.4 oz) 03/07/2024 8:50 A M EDT Height 152.4 cm (5') 03/07/2024 8:50 AM EDT Body Mass Index 26.83 03/07/2024 8:50 AM EDT Plan of Treatment Health Maintenance Due Date Last Done Comments CREATININE LEVEL 1959 LIPID PANEL 1959 POTASSIUM LEVEL 1959 TSH LEVEL 1959 COVID-19 VACCINE (#1) 1964 DEPRESSION SCREENING 1971 SMOKING Hx and SMOKELESS TOBACCO SCREENING 1972 HEPATITIS C SCREENING 1977 HIV ONE-TIME SCREENING (18-6 5 YEARS) 1977 COLOGUARD 2004 COLONOSCOPY 2004 COLORECTAL CANCER SCREENING 2004 FIT TEST 2004 FOBT 2004 SIGMOIDOSCOPY 2004 VIRTUAL COLONOSCOPY 2004 RSV VACCINE (1 - Risk 60-74 years 1-dose series) 2019 ZOSTER VACCINES (2 of 2) 05/21/2022 03/26/2022 PNEUMOCOCCAL VACCINES (50+ years) (3 of 3 - PPSV23, PCV20 or PCV21) 10/04/2022 08/16/2018, 10/04/2017 OSTEOPOROSIS SCREENING INITI AL (ONE-TIME) 2024 MAMMOGRAM 04/23/2025 04/23/2023, 11/08/2019, 10/13/2018 SCREENING FOR DIABETES 02/07/2027 02/08/2024 Adult Td,Tdap Booster 10/04/2027 10/04/2017 HEPATITIS A VACCINES Aged Out No long er eligible based on patient's age to complete this topic HIB VACCINES Aged Out No longer eligi ble based on patient's age to complete this topic MENINGOCOCCAL VACCINES (ACWY) Aged Out No longer eligible based on patient's age to complete this topic MENINGOCOCCAL VACCINES (B) Aged Out N o longer eligible based on patient's age to complete this topic Medical Devices Not on file Procedures Procedure Name Priority Date/Time Associated Diagnosis Comments ANATOMIC PATHOLOGY Routine 03/12/2025 12 :00 AM EDT from Last 3 Months Results * Anatomic Pathology (03/12/2025 12:00 AM EDT) 03/12/2025 03/13/2025 Narrative [facility] - 04/04/2025 10:51 AM EDT CASE: [id number] PATIENT: NICKY LOPEZ Date: 1960 Sex: Female [facility] Department of Pathology [address] [place] [address] License No.: [id number] [employer]: Dr. Tyler Cleveland M.D., Ph.D. Physician: CORRINE VAZQUEZ MD Procedure Date: 03/12/2025 Addended Report Resident: Najma Osorio M.D. Pathologist: Edith Chappell M.D., Ph.D. PATHOLOGIC DIAGNOSIS: KIDNEY BIOPSY (NEEDLE) DIFFUSE GLOMERULAR HYPOPERFUSION IN THE SETTING OF SEVERE VASCULAR SCLEROSIS NO EVIDENCE OF IMMUNE COMPLEX-MEDIATED DISEASE, PARAPROTEIN DEPOSITION DISEASE, ACUTE TUBULAR NECROSIS AND ACUTE INTERSTITIAL NEPHRITIS [id number] CHRONIC CHANGES OF THE PARENCHYMA, INCLUDING: - MODERATE GLOBAL GLOMERULOSCLEROSIS (25% OF GLOMERULI) - ADVANCED TUBULAR ATROPHY AND INTERSTITIAL FIBROSIS (60-70% OF THE CORTEX) - SEVERE ARTERIAL AND ARTERIOLAR SCLEROSIS The case was discussed with Dr. Vazquez on 03/14/2025 at 10:30am. MICROSCOPIC DESCRIPTION: Sections of formalin-fixed, paraffin embedded tissue were evaluated using H&E, PAS, JMS, and trichrome stains. An H&E-stained frozen section taken from the tissue allocated for immunofluorescence microscopy and semi-thin toluidine blue-stained epoxy sections of the tissue processed for electron microscopy were also evaluated using light microscopy. The sample consists of renal cortex with 24 glomeruli (LM-12; IF-3; EM-9), of which 6 are globally sclerosed. Several glomeruli are hypoperfused. The non-sclerosed glomeruli are of normal size, architecture and cellularity. The glomerular capillary loops are segmentally wrinkled and thickened. No basement membrane spikes, craters, or double contours are seen in the glomeruli. Significant endocapillary proliferation or cellular crescents are not seen in the glomeruli. The mesangium appears unremarkable. Non-atrophic tubules are enlarged and show mild distension. There is no loss of the brush border of the proximal tubular epithelium. Few tubules contain PAS-positive hyaline casts. The preserved islands of tubules appear hypertrophic. Obvious signs of a viral cytopathic effect are not seen in the sample. The interstitium contains mild interstitial inflammation in areas of atrophy. The infiltrates are composed of mononuclear cells. Approximately 60-70% of the renal cortex shows tubular atrophy and interstitial fibrosis. Arteries show severe sclerosis. Arterioles show severe sclerosis. IMMUNOFLUORESCENCE MICROSCOPY: KIDNEY BIOPSY #: [id number] The sections of the sample submitted for immunofluorescence studies were incubated with antibodies specific for the heavy chains of IgG, IgA, and IgM, for kappa and lambda light chains, fibrin, albumin, and complement components C3 and C1q. The sample contains 3 glomeruli. Glomeruli with global sclerosis are not seen. No significant immune deposits are seen in the glomeruli. Tubular epithelial cells contain protein reabsorption cytoplasmic granules reactive for albumin, IgG, and C3. Tubules contain few intraluminal casts reactive for polyclonal IgA. The interstitium reveals no immune deposits. The interstitium reveals scattered fibrin deposits. There is no difference in reactivity between kappa and lambda light chains in the glomeruli, tubular casts and background of the tissue. There is mild, diffuse speckling of IgG over the nuclei. The immunofluorescence microscopy tests performed at [facility] were developed and their performance characteristics determined by the Immunohistochemistry Laboratories in the Department of Pathology at [facility]. They have not been cleared or approved by the U.S. Food and Drug Administration (FDA). The FDA has determined that such clearance or approval is not necessary. ELECTRON MICROSCOPY: KIDNEY BIOPSY #: [id number] Electron microscopy will be performed and reported as an addendum. The diagnosis is not expected to change. CLINICAL DATA: History: 64y/o female with hx of T2DM, CKD3, SLE with anti-phospholipid syndrome and low grade albuminuria. Biopsy to r/o lupus nephritis. sCr 1.54, UA with few RBCs and WBCs. No reported history of prior lupus nephritis. TISSUE SUBMITTED: Kidney biopsy A/1. Light microscopy B/2. Immunofluorescence microscopy C/3. Electron microscopy GROSS DESCRIPTION: The specimen is received in 3 parts, each labeled with the patient's name and medical record number. Part A received in formalin consists of One be, cylindrical, soft tissue core(s) (0.8 cm in length x 0.1 cm in diameter). The specimen is submitted in toto for light microscopy. A1: 1 fragment. Part B received in Phu transport medium consists of one eb, cylindrical, soft tissue core(s) (0.3 cm in length x 0.1 cm in diameter). The specimen is submitted in toto for immunofluorescence microscopy. Part C received in EM fixative consists of one be, cylindrical, soft tissue core(s) (0.8 cm in length x 0.1 cm in diameter). The specimen is submitted in toto for electron microscopy. Dictated by: Sybil Gayle By his/her signature below, the senior physician certifies that he/she personally conducted a microscopic examination ( gross only exam if so stated) of the described specimen(s) and rendered or confirmed the diagnosis(es) related thereto. Final Diagnosis by Edith Weins M.D., Ph.D., Electronically signed on Tuesday April 01, 2025 at 10:34:39AM ADDENDUM: ELECTRON MICROSCOPY: KIDNEY BIOPSY #: [id number] Blocks: 3 Blocks examined: 3 thick sections; 1 thin section. The sample submitted for electron microscopy examination contains 9 glomeruli; 1 glomerulus is examined ultrastructurally. The podocytes reveal moderate effacement of their foot processes. The glomerular basement membranes are mildly thickened. No electron dense deposits are present along the capillary loops. The endothelial cells show focal swelling and a loss of fenestrations. Tubuloreticular inclusions are not seen within the cytoplasm of glomerular endothelial cells. The mesangium reveals normal cellular elements and a mildly increased amount of matrix. No electron dense deposits are present in the mesangium. The tubulointerstitium is unremarkable and no electron dense deposits are present in the tubular basement membranes or interstitium. Arterioles show hyalin deposition in the wall. Addendum #1 by Edith Chappell M.D., Ph.D., Electronically signed on March at 10:49:55AM Corrine Vazquez MD PATHOLOGY ORDERABLES Edited R esult - Final [facility] [address] [place] [id number] from Last 3 Months Insurance [facility] MEDICARE PART A & B [place] B [facility] MEDICARE PART A & B Care Teams Terminal Gauger Relationship Specialty Start Date End Date Sue Alicia MD PCP - General Family Medicine 02/09/24 Additional Source Comments The information contained in this document represents components of the legal health record. It is not the complete legal health record.[facility]
== END 2025-05-30 11:33 | disposition home or self-care (01) ==
LOC: HO.HGS 10:28
PROVIDERS: PCP General Practice
DX: K25.2 Acute gastric ulcer with both hemorrhage and perforation (principal)
CPT/HCPCS: 99024

== ENCOUNTER → 2025-05-30 10:27 | Outpatient (BNVA) | payer MEDICARE, MEDICAID, SELFPAY | PROVIDERS: PCP General Practice | DX: K25.2 Acute gastric ulcer with both hemorrhage and perforation (principal) | CPT/HCPCS: 99212 ==

== ENCOUNTER 2025-07-11 10:09 | Outpatient (REF) | payer MEDICARE, MEDICAID, SELFPAY ==
[2025-07-11 10:26] LABS: MANUAL DIFF FLAG NO
[2025-07-11 11:11] LABS: Hematocrit 37.9 % (37.0-47.0); Hemoglobin 11.8 g/dl (12.0-16.0); Imm Gran Abs Auto 0.02 X10*3/uL (0.00-0.03); Imm Gran Pct Auto 0.3 % (0.0-0.4); Lymphocytes Absolute Auto 2.4 X10*3/uL (1.2-4.9); Mean Corpuscular HGB Conc 31.1 g/dl (31.0-35.0); Mean Corpuscular Hemoglobin 28.3 pg (27.0-33.0); Mean Corpuscular Volume 90.9 fL (80.0-98.0); NRBC Abs Auto 0.000 X10*3/uL (0.0-0.012); NRBC Pct Auto 0.0 /100WBC (0.0-0.2); Platelet Count 323 X10*3/uL (160-400); Red Blood Count 4.17 X10*6/uL (4.20-5.50); White Blood Count 8.0 X10*3/uL (4.8-10.8)
[2025-07-11 11:45] LABS: Parathyroid Hormone Intact 145.3 pg/mL (8.7-77.1)
[2025-07-11 11:51] LABS: Anion Gap 12 (12-20); Blood Urea Nitrogen 23 mg/dL (9-16); Calcium 8.6 mg/dL (8.4-10.2); Carbon Dioxide 29 mmol/L (22-29); Chloride 107 mmol/L (96-108); Estimated Glomerular Filt Rate 36; Potassium 5.0 mmol/L (3.3-5.1); Sodium 143 mmol/L (135-145)
--- OUTSIDE RECORDS SUMMARY | 2025-07-11 12:23 | XMS_ITS | Encounter Summary ---
Author Organization [employer] Address [address] [facility] [address] [place] [address] Care Team Providers Care Senior Partner Name Role Phone Sue Alicia MD Primary Care Provider [phone] Encounter Details Date Type Department Care Team ([facility] st Contact Info) Description 11/22/2023 Orders Only [facility] MEDICINE [address] [place], [place] [phone] Sue Alicia MD [address] [place], [place] [phone] Social History Tobacco Use Types Packs/Day Years [...] Care Team (Late st Contact Info) Description 07/30/2025 11:30 AM EDT Office Visit [facility] [address] [place] [address] Sue Alicia MD [address] [place] [address] 09/30/2025 10:00 AM EST Clinical Support [facility] [address] [place] [address] Cookie Alcaraz, ABHIJIT 11/18/2025 11:00 AM EST Office Visit [facility] [address] [place] [address] Chaka, Clover, OD [address] [place] [address] documented as of this encounter Visit Diagnoses Not on filedocumented in this encounter Additional Health Concerns Assessment Noted Time PHQ-9 Depression Total Score: 0 02/26/20 23 9:24 AM EDT documented as of this encounter Care Teams Senior Partner Relationship Specialty Start Date End Date Sue Alicia MD [address] [place] [phone] PCP - General Family Medicine 08/09/23 documented as of this encounter
--- OUTSIDE RECORDS SUMMARY | 2025-07-11 12:23 | XMS_ITS | Clinical Summary ---
Author Organization [facility] Address [address] [place] [address] Phone Care Team Providers Care Cone Chocolate Dipper Name Role Phone Physician, No Pcp Primary Care Provider Unavaila ble Social History Tobacco Use Types Packs/Day Years [...] 06/26/2024 Social Influencers of Health Screening 06/26/2024 Falls Risk Assessment 2024 Depression Screening 10/31/2024 COVID-19 Vaccine ( - 2023-2 5 season) 2025 Influenza Vaccine (#1) 2025 RSV Immunization Adult [...] on patient's age to complete this topic Insurance MEDICARE MEDICAID - [place] Care Teams Cone Chocolate Dipper Relationship Specialty Start Date End Date Physician, No Pcp PCP - General 03/20/25
--- OUTSIDE RECORDS SUMMARY | 2025-07-11 12:23 | XMS_ITS | Encounter Summary ---
Author Organization [employer] Address [address] [place] [address] [address]t [place] [address] Care Team Providers Care Visual Journalist Name Role Phone Sue Alicia MD Primary Care Provider [phone] Reason for Visit * Reason Comments Med Refill Encounter Details Date Type Department Care Team ([facility] st Contact Info) Description 12/11/2024 Refill [facility] MEDICINE [address] [place], [place] [phone] Sue Alicia MD [address] [place], [place] [phone] Chronic low back pain, unspecified back pain [...] the past 12 months, has t he [employer], gas, oil or water company threatened to [...] Description 07/30/2025 11:30 AM EDT Office Visit [facility] MEDICINE [address] [place] [address] Sue Alicia MD [address] [place] [address] 09/30/2025 10:00 AM EST Clinical Support [facility] [address] [place] [address] Cookie Alcaraz RN 11/18/2025 11:00 AM EST Office Visit [facility] OPT[facility]ETRY [address] [place] [address] Clover Null, OD [address] [place] [address] documented as of this encounter Visit Diagnoses Diagnosis Chronic low back pain, unspecified back pain laterality, unspecified whether sciatica present documented in this encounter Additional Health Concerns Assessment Noted Time PHQ-9 Depression Total Score: 19 024 2:37 PM EDT documented as of this encounter Care Teams Visual Journalist Relationship Specialty Start Date End Date Sue Alicia MD [address] [place] [address] PCP - General Family Medicine 08/09/23 documented as of this encounter
--- OUTSIDE RECORDS SUMMARY | 2025-07-11 12:23 | XMS_ITS | Encounter Summary ---
Author Organization [employer] Address [address] [place] [address] [address] [place] [address] Care Team Providers Care Predatory Hunter Name Role Phone Sue Alicia MD Primary Care Provider [phone] Reason for Visit * Reason Onset Date Comments Call Back Request 02/20/2024 Encounter Details Date Type Department Care Team ([facility] Contact Info) Description 02/20/2024 Telephone [facility] MEDICINE [address] [place], [place] [phone] Sue Alicia MD [address] [place], [place] [phone] Call Back Request Social History Tobacco Use [...] Description 07/30/2025 11:30 AM EDT Office Visit [facility] MEDICINE [address] [place] [address] Sue Alicia MD [address] [place] [address] 09/30/2025 10:00 AM EST Clinical Support [facility] MEDICINE [address] [place] [address] Cookie Alcaraz RN 11/18/2025 11:00 AM EST Office Visit [facility] OPTOMETRY [address] [place] [address] Clover Null, OD [address] [place] [address] documented as of this encounter Visit Diagnoses Not on filedocumented in this encounter Additional Health Concerns Assessment Noted Time PHQ-9 Depression Total Score: 19 024 2:37 PM EDT documented as of this encounter Care Teams Predatory Hunter Relationship Specialty Start Date End Date Sue Alicia MD [address] [place] [address] PCP - General Family Medicine 08/09/23 documented as of this encounter
--- OUTSIDE RECORDS SUMMARY | 2025-07-11 12:23 | XMS_ITS | Encounter Summary ---
Author Organization [employer] Address [address] [place] [address] 7t [place] [address] Care Team Providers Care Rounding Machine Operator Name Role Phone Sue Alicia MD Primary Care Provider [phone] Reason for Visit * Reason Comments Med Refill Encounter Details Date Type Department Care Team (Late st Contact Info) Description 10/03/2024 Refill [facility] [address] [place], [place] [phone] Sue Alicia MD [address] [place], [place] [phone] Chronic low back pain, unspecified back pain [...] the past 12 months, has t he [employer], gas, oil or water company threatened to [...] Description 07/30/2025 11:30 AM EDT Office Visit [facility] [address] [place] [address] Sue Alicia MD [address] [place] [address] 09/30/2025 10:00 AM EST Clinical Support [facility] [address] [place] [address] Cookie Alcaraz RN 11/18/2025 11:00 AM EST Office Visit [facility] OPTOMETRY [address] [place] [address] Clover Null, OD [address] [place] [address] documented as of this encounter Visit Diagnoses Diagnosis Chronic low back pain, unspecified back pain laterality, unspecified whether sciatica present documented in this encounter Additional Health Concerns Assessment Noted Time PHQ-9 Depression Total Score: 19 024 2:37 PM EDT documented as of this encounter Care Teams Rounding Machine Operator Relationship Specialty Start Date End Date Sue Alicia MD [address] [place] [address] PCP - General Family Medicine 08/09/23 documented as of this encounter
--- OUTSIDE RECORDS SUMMARY | 2025-07-11 12:23 | XMS_ITS | Encounter Summary ---
Author Organization [employer] Address [address] [place] [address] 7 [place] [address] Care Team Providers Care Market Editor Name Role Phone Sue Alicia MD Primary Care Provider [phone] Reason for Visit * Reason Onset Date Comments Med Refill 08/29/2023 Encounter Details Date Type Department Care Team ([facility] st Contact Info) Description 08/29/2023 Telephone [facility] MEDICINE [address] [place], [place] [phone] Sue Alicia MD [address] [place], [place] [phone] Med Refill Social History Tobacco Use Types [...] (Flexeril) 10 MG tablet Please sent to [facility] - [place], [place] - [address] [place] [address] documented in this encounter Plan of Treatment Upcoming Encounters Date Type Department Care Team (Late st Contact Info) Description 07/30/2025 11:30 AM EDT Office Visit [address] [address] Sue Alicia MD [address] [place] [address] 09/30/2025 10:00 AM EST Clinical Support [address] [address] Cookie Alcaraz RN 11/18/2025 11:00 AM EST Office Visit [facility] OPT[facility] [address] [place] [address] Clover Null, OD [address] [place] [address] documented as of this encounter Visit Diagnoses Not on filedocumented in this encounter Additional Health Concerns Assessment Noted Time PHQ-9 Depression Total Score: 0 02/26/20 23 9:24 AM EDT documented as of this encounter Care Teams Market Editor Relationship Specialty Start Date End Date Sue Alicia MD [address] [place] [address] PCP - General Family Medicine 08/09/23 documented as of this encounter
--- OUTSIDE RECORDS SUMMARY | 2025-07-11 12:23 | XMS_ITS | Encounter Summary ---
Author Organization [employer] Address [address] [facility] 7t [place] [address] Care Team Providers Care Radio Maintainer Name Role Phone Sue Alicia MD Primary Care Provider [phone] Reason for Referral * Consultation (Routine) - Closed Specialty Diagnoses / Procedures Referred By Contac t Referred To Contact Vascular Surgery Diagnoses Pain due to varicose veins of both lower extremities Sue Alicia MD [address] [place] [address] Phone: tel: fax: [facility] [address] [place], [place] Phone: tel: fax: Referral ID Status Reason Start Date Expiration Date V isits Requested Visits Authorized [id number] Closed Specialty Services Required 04/17/2024 04/17/2025 6 6 * Consultation (Routine) - Closed Specialty Diagnoses / Procedures Referred By Contac t Referred To Contact Pulmonary Disease Diagnoses Mild intermittent asthma without complication Obstructive sleep apnea syndrome Sue Alicia MD [address] [place] [address] Phone: tel: fax: [facility] [address] [place], [place] Phone: tel: fax: Referral ID Status Reason Start Date Expiration Date V isits Requested Visits Authorized [id number] Closed Specialty Services Required 04/19/2024 04/19/2025 6 6 Encounter Details Date Type Department Care Team (Late st Contact Info) Description 04/03/2024 Orders Only [facility] [address] [place] [address] Sue Alicia MD [address] [place] [address] Mild intermittent asthma without complication (Primary Dx); [...] Description 07/30/2025 11:30 AM EDT Office Visit [facility] [address] [place] [address] Sue Alicia MD [address] [place] [address] 09/30/2025 10:00 AM EST Clinical Support [facility] [address] [place] [address] Cookie Alcaraz RN 11/18/2025 11:00 AM EST Office Visit [facility] [address] [place] [address] Chaka, Clover, OD [address] [place] [address] Scheduled Referrals Name Type Priority Associated Diagnoses [...] documented as of this encounter Care Teams Radio Maintainer Relationship Specialty Start Date End Date Sue Alicia MD [address] [place] [address] PCP - General Family Medicine 08/09/23 documented as of this encounter
--- OUTSIDE RECORDS SUMMARY | 2025-07-11 12:23 | XMS_ITS | Patient Health Record ---
Author Organization [facility] Address [address] [place] [address] Care Team Providers Care High School Business Teacher Name Role Phone Sue Alicia M.D. Primary Care Provider Isael Camacho Unavailable [phone] Allergies Allergen (clinical drug ingredient) Drug/Non Drug [...] Problem Status W/U Status Risk Notes Problem [id number] Encounter for screening for malignant neoplasm of colon (Z12.11) Active confirmed Problem Screening for malignant neoplasm of rectum (436784539) Encounter for screening for malignant neoplasm of rectum (Z12.12) Active confirmed Problem [id number] Gastroesophageal reflux disease without esophagitis (K21.9) Active confirmed Problem [id number] History of colon polyps (Z86.010) Active confirmed Problem 09083301 Constipation, unspecified constipation type (K59.00) Active confirmed Plan Of Treatment Future Test Test Name Order Date COLONOSCOPY 03/31/2016 Next Appt Details Provider Name:Isael David , 07/16/2025 02:40:00 PM, [address] [facility], [address], [place], [address], Insurance Providers Payer Name Payer Address Payer Phone Subscriber Number Group Number Insured Name Patient Relationship to Insured Coverage Start Date Coverage End Date [place] [address] [place] [address] [id number] CHERIE MELGAR Self - patient is the insured [facility] [facility] [address] [place] [address] [id number] MELGAR, HCERIE Self - patient is the insured Medical (General) History Medical History History ICD Code Colonoscopy 05/2011--negative for polyps--mild sigmoid diverticulosis and small int. hemorrhoids GERD-EGD in 05/2011--small HH--no esophag itis Colon polyps removed in 2005 at [facility] [place] --but not recovered for pathology--they looked adenomatous according to the colonoscopy report Depression Hypertension Renal artery stenosis--s/p angioplasty IDDM Sleep apnea--uses CPAP Denies [place],CVA,Lung disease,renal disease Lupus Fibromyalgia Arthritis Surgical History Surgery Date(Month/Year) Lap CCY BTL Parathyroidectomy Right breast biopsy--benign
--- OUTSIDE RECORDS SUMMARY | 2025-07-11 12:23 | XMS_ITS | Encounter Summary ---
Author Organization [employer] Address [address] [place] [address] 7t [place] [address] Care Team Providers Care Supervisory Historian Name Role Phone Sue Alicia MD Primary Care Provider [phone] Reason for Visit * Reason Onset Date Comments Referral 04/02/2024 Encounter Details Date Type Department Care Team ([facility] st Contact Info) Description 04/02/2024 Telephone [facility]INE [address] [place], [place] [phone] Sue Alicia MD [address] [place] [address] Referral Social History Tobacco Use Types Packs/Day [...] referral : DATE: n/a TIME: n/a Address: [address] [place] [address] Visits: all year long 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: [facility] 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: liquid hydrogen plant operator Provider : Rhea Locke MD Address: [address] [place] [address] Fax #: [phone] documented in this encounter Plan of Treatment Upcoming Encounters Date Type Department Care Team (Late st Contact Info) Description 07/30/2025 11:30 AM EDT Office Visit [facility] [address] [place] [address] Sue Alicia MD [address] [place] [address] 09/30/2025 10:00 AM EST Clinical Support [facility] [address] [place] [address] Cookie Alcaraz RN 11/18/2025 11:00 AM EST Office Visit [facility] OPTOM[facility] [address] [place] [address] Clover Null, OD [address] [place] [address] documented as of this encounter Visit Diagnoses Not on filedocumented in this encounter Additional Health Concerns Assessment Noted Time PHQ-9 Depression Total Score: 19 024 2:37 PM EDT documented as of this encounter Care Teams Supervisory Historian Relationship Specialty Start Date End Date Sue Alicia MD [address] [place] [address] PCP - General Family Medicine 08/09/23 documented as of this encounter
--- OUTSIDE RECORDS SUMMARY | 2025-07-11 12:23 | XMS_ITS | Encounter Summary ---
Author Organization [employer] Address [address] [facility] 7t [place] [address] Care Team Providers Care Assistant District Attorney Name Role Phone Sue Alicia MD Primary Care Provider [phone] Reason for Visit * Reason Onset Date Comments Durable Medical Equipment 02/10/2024 Walker and Wheelchair Encounter Details Date Type Department Care Team (Late st Contact Info) Description 02/10/2024 Telephone [facility] [address] [place] [address] Sue Alicia MD [address] [place] [address] Durable Medical Equipment (Walker and Wheelchair) Social [...] the past 12 months, has t he [employer], gas, oil or water company threatened to [...] Description 07/30/2025 11:30 AM EDT Office Visit [facility] [address] [place] [address] Sue Alicia MD [address] [place] [address] 09/30/2025 10:00 AM EST Clinical Support [facility] [address] [place], [place] [phone] Cookie Aclaraz, RN 11/18/2025 11:00 AM EST Office Visit [facility] OPTOMETRY [address] [place] [address] Clover Null, OD [address] [place] [address] documented as of this encounter Visit Diagnoses Not on filedocumented in this encounter Additional Health Concerns Assessment Noted Time PHQ-9 Depression Total Score: 19 024 2:37 PM EDT documented as of this encounter Care Teams Assistant District Attorney Relationship Specialty Start Date End Date Sue Alicia MD [address] [place] [address] PCP - General Family Medicine 08/09/23 documented as of this encounter
--- OUTSIDE RECORDS SUMMARY | 2025-07-11 12:23 | XMS_ITS | Encounter Summary ---
Author Organization [employer] Address [address] [place] [address] 7t [place] [address] Care Team Providers Care Special Delivery Mail Carrier Name Role Phone Sue Alicia MD Primary Care Provider [phone] Reason for Visit * Reason Onset Date Comments Med Refill 02/17/2024 Encounter Details Date Type Department Care Team ([facility] st Contact Info) Description 02/17/2024 Telephone [facility] MED[facility]INE [address] [employer], [place] [phone] Sue Alicia MD [address] [place], [place] [phone] Med Refill Social History Tobacco Use Types [...] 5 MG tablet To be sent to: [facility] [place], [place] - [address] [place] [address] documented in this encounter Plan of Treatment Upcoming Encounters Date Type Department Care Team (Late st Contact Info) Description 07/30/2025 11:30 AM EDT Office Visit [facility] MEDICINE [address] [place] [address] Sue Alicia MD [address] [place] [address] 09/30/2025 10:00 AM EST Clinical Support [facility] [address] [place] [address] Cookie Alcaraz RN 11/18/2025 11:00 AM EST Office Visit [facility] OPTOMETRY [address] [place] [address] Clover Null, OD [address] [place] [address] documented as of this encounter Visit Diagnoses Not on filedocumented in this encounter Additional Health Concerns Assessment Noted Time PHQ-9 Depression Total Score: 19 024 2:37 PM EDT documented as of this encounter Care Teams Special Delivery Mail Carrier Relationship Specialty Start Date End Date Sue Alicia MD [address] [place] [address] PCP - General Family Medicine 08/09/23 documented as of this encounter
--- OUTSIDE RECORDS SUMMARY | 2025-07-11 12:23 | XMS_ITS | Encounter Summary ---
Author Organization [employer] Address [address] [place] [address] 7t [place] [address] Care Team Providers Care Outpatient Program Coordinator Name Role Phone Sue Alicia MD Primary Care Provider Reason for Visit * Reason Onset Date Comments Med Refill 11/21/2023 Encounter Details Date Type Department Care Team ([facility] st Contact Info) Description 11/21/2023 Refill [facility]INE [address] [place], [place] [phone] Sue Alicia MD [address] [place], [place] [phone] Chronic low back pain, unspecified back pain [...] with others, in a hotel, in a halfway, living outside on the street, on a [...] 10 MG tablet To be sent to: [facility] [place] - [address] [place] [address] documented in this encounter Plan of Treatment Upcoming Encounters Date Type Department Care Team (Late st Contact Info) Description 07/30/2025 11:30 AM EDT Office Visit [facility] MED[facility]INE [address] [place] [address] Sue Alicia MD [address] [place] [address] 09/30/2025 10:00 AM EST Clinical Support [facility] MEDICINE [address] [place] [address] Cookie Alcaraz RN 11/18/2025 11:00 AM EST Office Visit [facility] OPTOMETRY [address] [place], [place] [phone] Clover Null, OD [address] [place] [address] documented as of this encounter Visit Diagnoses Diagnosis Chronic low back pain, unspecified back pain laterality, unspecified whether sciatica present Rash and nonspecific skin eruption Rash and other nonspecific skin eruption documented in this encounter Additional Health Concerns Assessment Noted Time PHQ-9 Depression Total Score: 0 02/26/20 23 9:24 AM EDT documented as of this encounter Care Teams Outpatient Program Coordinator Relationship Specialty Start Date End Date Sue Alicia MD [address] [place] [address] PCP - General Family Medicine 08/09/23 documented as of this encounter
--- OUTSIDE RECORDS SUMMARY | 2025-07-11 12:23 | XMS_ITS | Encounter Summary ---
Author Organization [employer] Address [address] [facility] 7t [place] [address] Care Team Providers Care Rate Clerk Passenger Name Role Phone Sue Alicia MD Primary Care Provider [phone] Encounter Details Date Type Department Care Team ([facility] st Contact Info) Description 04/06/2024 Telephone [facility] MED[facility]INE [address] [place], [place] [phone] Sue Alicia MD [address] [place], [place] [phone] Social History Tobacco Use Types Packs/Day Years [...] Description 07/30/2025 11:30 AM EDT Office Visit [facility] [address] [place] [address] Sue Alicia MD [address] [place] [address] 09/30/2025 10:00 AM EST Clinical Support [facility] [address] [place] [address] Cookie Alcaraz RN 11/18/2025 11:00 AM EST Office Visit [facility] OPTOMETRY [address] [place] [address] Clover Null, OD [address] [place] [address] documented as of this encounter Visit Diagnoses Not on filedocumented in this encounter Additional Health Concerns Assessment Noted Time PHQ-9 Depression Total Score: 19 024 2:37 PM EDT documented as of this encounter Care Teams Rate Clerk Passenger Relationship Specialty Start Date End Date Sue Alicia MD [address] [place] [address] PCP - General Family Medicine 08/09/23 documented as of this encounter
--- OUTSIDE RECORDS SUMMARY | 2025-07-11 12:23 | XMS_ITS | Encounter Summary ---
Author Organization [employer] Address [address] [facility] 7t [place] [address] Care Team Providers Care Certifed Refrigeration Operator Name Role Phone Sue Alicia MD Primary Care Provider [phone] Reason for Visit * Reason Comments Med Refill Encounter Details Date Type Department Care Team ([facility] st Contact Info) Description 04/11/2024 Refill [facility] [address] [place] [address] Sue Alicia MD [address] [place] [address] Shortness of breath Social History Tobacco Use [...] Description 07/30/2025 11:30 AM EDT Office Visit [facility] MEDICINE [address] [place] [address] Sue Alicia MD [address] [place] [address] 09/30/2025 10:00 AM EST Clinical Support [facility] [address] [place] [address] Cookie Alcaraz RN 11/18/2025 11:00 AM EST Office Visit [facility] OPTOM[facility] [address] [place] [address] Chaka, Clover, OD [address] [place] [address] documented as of this encounter Visit Diagnoses Diagnosis Shortness of breath documented in this encounter Additional Health Concerns Assessment Noted Time PHQ-9 Depression Total Score: 19 024 2:37 PM EDT documented as of this encounter Care Teams Certifed Refrigeration Operator Relationship Specialty Start Date End Date Sue Alicia MD [address] [place] [address] PCP - General Family Medicine 08/09/23 documented as of this encounter
--- OUTSIDE RECORDS SUMMARY | 2025-07-11 12:23 | XMS_ITS | Encounter Summary ---
Author Organization [employer] Address [address] [facility] 7t [place] [address] Care Team Providers Care Programming Internship Name Role Phone Sue Alicia MD Primary Care Provider [phone] Reason for Visit * Reason Onset Date [...] (Late st Contact Info) Description 02/06/[address] [facility] MEDICINE [address] [place], [place] [phone] Sue Alicia MD [address] [place], [place] [phone] Letter for Housing (I called to get [...] AM EDT documented as of this encounter Functional Status * Over the past 2 weeks, how often have you been bothered by any of the following problems? Question Answer Date of Assessment Author Patient Health Questionnaire -2 Score 5 02/08/2024 2:37 PM EDT Mahendra Rivera [place] * If you checked off any problems on this questionnaire so far, Question Answer Date of Assessment Author How difficult have these problems made it for you to do your work, take care of things at home, or get along with other people? Somewhat difficult 02/08/2024 2:37 PM EDT Mahendra Rivera MA * Over the last 2 weeks, how often have you been bothered by any of the following problems? Question Answer Date of Assessment Author Feeling nervous, anxious, or on edge 3 02/08/2024 2:38 PM EDT Mahendra Rivera MA Not being able to stop or co ntrol worrying 2 02/08/2024 2:38 PM EDT Mahendra Rivera MA Worrying too much about diff erent things 2 02/08/2024 2:38 PM EDT Mahendra Rivera MA Trouble relaxing 3 02/08/2024 2:38 PM EDT Mahendra Feldman MA Being so restless that it is hard to sit still 2 02/08/2024 2:38 PM EDT Mahendra Rivera MA Becoming easily annoyed or irritable 1 02/08/2024 2:38 PM EDT Mahendra Rivera MA Feeling afraid as if somethi ng awful might happen 2 02/08/2024 2:38 PM EDT Mahendra Rivera MA MARZENA-7 Total Score 15 02/08/2024 2:38 PM EDT Mahendra Rivera MA * Over the past 2 weeks, how often have you been bothered by any of the following problems? Question Answer Date of Assessment Author Little interest or pleasure in doing things Nearly every day 02/08/2024 2:37 PM EDT Mahendra Rivera MA Feeling down, depressed, or hopeless More than half the days 02/08/2024 2:37 PM EDT Mahendra Rivera MA Trouble falling or staying asleep, or sleeping too much Nearly every day 02/08/2024 2:37 PM EDT Mahendra Rivera MA Feeling tired or having little energy Nearly every day 02/08/2024 2:37 PM EDT Mahendra Rivera MA Poor appetite or overeating Nearly every day 02/08/2024 2:37 PM EDT Mahendra Rivera MA Feeling bad about yourself - or that you are a failure or have let yourself or your family down Not at all 02/08/2024 2:37 PM EDT Mahendra Rivera MA Trouble concentrating on things, such as reading the newspaper or watching television Nearly every day 02/08/2024 2:37 PM EDT Mahendra Rivera MA Moving or speaking so slowly that other people could have noticed? Or the opposite - being so fidgety or restless that you have been moving around a lot more than usual. More than half the days 02/08/2024 2:37 PM EDT Mahendra Rivera MA Thoughts that you would be better off or hurting yourself in some way Not at all 02/08/2024 2:37 PM EDT Mahendra Rivera MA Patient Health Questionnaire-9 Score 19 02/08/2024 2:37 PM EDT Mahendra Rivera MA documented as of this encounter Miscellaneous Notes [...] Description 07/30/2025 11:30 AM EDT Office Visit [facility] [address] [place] [address] Sue Alicia MD [address] [place] [address] 09/30/2025 10:00 AM EST Clinical Support [facility] [address] [place] [address] Cookie Alcaraz, ABHIJIT 11/18/2025 11:00 AM EST Office Visit [facility] OPTOM[facility]RY [address] [place] [address] Clover Null, OD [address] [place] [address] documented as of this encounter Visit Diagnoses Not on filedocumented in this encounter Additional Health Concerns Assessment Noted Time PHQ-9 Depression Total Score: 0 02/26/20 23 9:24 AM EDT documented as of this encounter Care Teams Programming Internship Relationship Specialty Start Date End Date Sue Alicia MD [address] [place] [address] PCP - General Family Medicine 08/09/23 documented as of this encounter
--- OUTSIDE RECORDS SUMMARY | 2025-07-11 12:24 | XMS_ITS | Encounter Summary ---
Author Organization [employer] Address [address] [place] [address] 7t [place] [address] Care Team Providers Care Double End Trimmer Name Role Phone Sue Alicia MD Primary Care Provider [phone] Reason for Visit * Reason Comments Med Refill Encounter Details Date Type Department Care Team ([facility] st Contact Info) Description 08/26/2023 Refill [facility] MEDICINE [address] [place] [address] Negrita Diaz FNP [address] [place] [address] Other chronic pain Social History Tobacco Use [...] [facility] [address] [place] [address] Sue Alicia MD [address] [place] [address] 09/30/2025 10:00 AM EST Clinical Support [facility] MEDICINE [address] [place] [address] Cookie Alcaraz, ABHIJIT 11/18/2025 11:00 AM EST Office Visit [facility] OPTOMETRY [address] [place] [address] Chaka, Clover, OD [address] [place] [address] documented as of this encounter Visit Diagnoses Diagnosis Other chronic pain documented in this encounter Additional Health Concerns Assessment Noted Time PHQ-9 Depression Total Score: 0 02/26/20 23 9:24 AM EDT documented as of this encounter Care Teams Double End Trimmer Relationship Specialty Start Date End Date Sue Alicia MD [address] [place] [address] PCP - General Family Medicine 08/09/23 documented as of this encounter
--- OUTSIDE RECORDS SUMMARY | 2025-07-11 12:24 | XMS_ITS | Encounter Summary ---
Author Organization [employer] Address [address] [facility] 7t [place] [address] Care Team Providers Care Cotton Ball Machine Tender Name Role Phone Sue Alicia MD Primary Care Provider [phone] Encounter Details Date Type Department Care Team ([facility] st Contact Info) Description 03/18/2025 Orders Only [facility] MEDICINE [address] [place], [place] [phone] Sue Alicia MD [address] [place], [place] [phone] Social History Tobacco Use Types Packs/Day Years [...] Description 07/30/2025 11:30 AM EDT Office Visit [facility] MEDICINE [address] [place] [address] Sue Alicia MD [address] [place] [address] 09/30/2025 10:00 AM EST Clinical Support [facility] MEDICINE [address] [place] [address] Cookie Alcaraz RN 11/18/2025 11:00 AM EST Office Visit [facility] OPTOMETRY [address] [place] [address] Clover Null, LINDA [address] [place] [address] documented as of this encounter Procedures Procedure Name Priority Date/Time Associated Diagnosis Comments COLONOSCOPY Routine 07/19/2016 documented in this encounter Results * Colonoscopy (07/19/2016) Anatomical Region Laterality Modality Endoscopy Impressions 07/19/2016 07/19/2016 internal hemorrhoids, sigmoid diverticulosis. Recommend repeat in 10 years. 07/2026 us Historical Provider ENDOSCOPY PROCEDURE ORDER KOBY Final Result documented in this encounter Visit Diagnoses Not on filedocumented in this encounter Additional Health Concerns Assessment Noted Time PHQ-9 Depression Total Score: 19 024 2:37 PM EDT documented as of this encounter Care Teams Cotton Ball Machine Tender Relationship Specialty Start Date End Date Sue Alicia MD [address] [place] [address] PCP - General Family Medicine 08/09/23 documented as of this encounter
--- OUTSIDE RECORDS SUMMARY | 2025-07-11 12:24 | XMS_ITS | Encounter Summary ---
Author Organization [employer] Address [address] [facility] 7t [place] [address] Care Team Providers Care Civil Engineering Draftsperson Name Role Phone Sue Alicia MD Primary Care Provider [phone] Reason for Visit * Reason Comments Med Refill Encounter Details Date Type Department Care Team ([facility] st Contact Info) Description 10/03/2024 Refill [facility] MEDICINE [address] [place], [place] [phone] Sue Alicia MD [address] [place], [place] [phone] Bronchitis Social History Tobacco Use Types Packs/Day [...] [facility] [address] [place] [address] Sue Alicia MD [address] [place] [address] 09/30/2025 10:00 AM EST Clinical Support [facility] MEDICINE [address] [place] [address] Cookie Alcaraz RN 11/18/2025 11:00 AM EST Office Visit [facility] OPTOMETRY [address] [place], [place] [phone] Clover Null, OD [address] [place] [address] documented as of this encounter Visit Diagnoses Diagnosis Bronchitis Bronchitis, not specified as acute or chronic documented in this encounter Additional Health Concerns Assessment Noted Time PHQ-9 Depression Total Score: 19 024 2:37 PM EDT documented as of this encounter Care Teams Civil Engineering Draftsperson Relationship Specialty Start Date End Date Sue Alicia MD [address] [place] [address] PCP - General Family Medicine 08/09/23 documented as of this encounter
--- OUTSIDE RECORDS SUMMARY | 2025-07-11 12:24 | XMS_ITS | Encounter Summary ---
Author Organization [employer] Address [address] [place] [address] [address] [place] [address] Care Team Providers Care Hospital Intern Name Role Phone Sue Alicia MD Primary Care Provider [phone] Reason for Visit * Reason Onset Date Comments Med Refill 05/09/2024 Encounter Details Date Type Department Care Team ([facility] st Contact Info) Description 05/09/2024 Telephone [facility] [address], [place] [phone] Sue Alicia MD [address] [place], [place] [phone] Med Refill Social History Tobacco Use Types [...] EDT Script was sent on 05/04/24 to [facility]. * Telephone Encounter - Jamal Linder - 05/09/2024 9:46 AM EDT TC from pt requesting medication refill. Medications needing refill : cyclobenzaprine (Flexeril) 5 MG tablet To be sent to: [facility] documented in this encounter Plan of Treatment Upcoming Encounters Date Type Department Care Team (Late st Contact Info) Description 07/30/2025 11:30 AM EDT Office Visit [facility] [address] [place] [phone] Sue Alicia MD [address] [place] [address] 09/30/2025 10:00 AM EST Clinical Support [facility] [address] [place] [address] Cookie Alcaraz, RN 11/18/2025 11:00 AM EST Office Visit [facility] [address] [place] [address] Clover Null, OD [address] [place] [address] documented as of this encounter Visit Diagnoses Not on filedocumented in this encounter Additional Health Concerns Assessment Noted Time PHQ-9 Depression Total Score: 19 024 2:37 PM EDT documented as of this encounter Care Teams Hospital Intern Relationship Specialty Start Date End Date Sue Alicia MD [address] [place] [address] PCP - General Family Medicine 08/09/23 documented as of this encounter
--- OUTSIDE RECORDS SUMMARY | 2025-07-11 12:24 | XMS_ITS | Encounter Summary ---
Author Organization [facility] Address [address] [place] [address] [address] [place] [address] Care Team Providers Care Barrer [employer] Tacker Name Role Phone Miranda Ramirez Primary Care Provider Sera Sue Garcia MD Primary Care Provider [phone] Reason for Visit * Reason Comments Med Refill Encounter Details Date Type Department Care Team (Late Contact Info) Description 07/26/2023 Refill [facility] [address] [place], [place] [phone] Miranda Ramirez FNP Shortness of breath Social History Tobacco Use [...] Department Care Team (Late Contact Info) Description 07/30/2025 11:30 AM EDT Office Visit [facility] [address] [place], [place] [phone] Sue Alicia MD [address] [place], [place] [phone] 09/30/2025 10:00 AM EST Clinical Support [facility] [address] [place], [place] [phone] Cookie Alcaraz, RN 11/18/2025 11:00 AM EST Office Visit [facility] [address] [place], [place] [phone] Clover Null, OD [address] [place] [address] documented as of this encounter Visit Diagnoses Diagnosis Shortness of breath documented in this encounter Additional Health Concerns Assessment Noted Time PHQ-9 Depression Total Score: 0 02/26/20 9:24 AM EDT documented as of this encounter Care Teams Barrer And Tacker Relationship Specialty Start Date End Date Miranda Ramirez FNP PCP - General Family Medicine 12/01/22 08/08/23 Sue Alicia MD [address] [place] [address] PCP - General Family Medicine 08/09/23 documented as of this encounter
--- OUTSIDE RECORDS SUMMARY | 2025-07-11 12:24 | XMS_ITS | Clinical Summary ---
Author Organization [employer] Address [address] [place] [address] [address] [place] [address] Care Team Providers Care Snack Steward Name Role Phone Sue Alicia MD Primary Care Provider [phone] Allergies Active Allergy Reactions Criticality Noted Date Comments Aspirin Rash,Headache Medium 09/27/2022 Calcium Headache,Nausea,Vomiting High 03/03/2023 Doxycycline 03/15/2022 Other reaction(s): pt. unsure Other reaction(s): pt. unsure Iodixanol Rash Low 03/15/2022 Penicillins Rash,Headache Medium 09/27/2022 Sulfasalazine 03/03/2023 Other Reaction(s): unknown Tofacitinib High 03/03/2023 Other Reaction(s): chest pain, headaches Medications Pentips 32G X 4 MM misc USE 1 DAILY WITH VICTOZA Active levothyroxine (Synthroid, Levoxyl) 75 MCG tabletIndicatio ns:Hypothyroidi sm, unspecified type TAKE 1 TABLET BY MOUTH EVERY MORNING 90 tablet 3 024 Active albuterol (Ventolin HFA) 108 (90 Base) MCG/ACT inhalerIndicati ons:Shortness of breath Inhale 2 puffs every 6 (six) hours if needed for wheezing. 18 g 11 024 Active glucose blood (FREESTYLE LITE) test stripIndication s:Elevated blood sugar TEST BLOOD SUGAR ONCE DAILY DIRECTED 100 strip 11 Active Alcohol Swabs (Alcohol Prep) 70 % pads USE TO CHECK BS ONCE DAILY 100 each 024 Active acetaminophen (Tylenol) 325 MG tablet Take 2 tablets by mouth every 4 (four) hours if needed for mild pain. Active cholecalciferol (D3) 25 MCG (1000 UT) capsule Take 1 capsule by mouth Once per day. Active gabapentin (Neurontin) 300 MG capsule Take 3 capsules by mouth at bedtime. Active furosemide (Lasix) 40 MG tablet Take 1 tablet by mouth 2 times daily. Active predniSONE (Deltasone) 5 MG tabletIndicatio ns:Rash and nonspecific skin eruption TAKE 1 TABLET BY MOUTH EVERY MORNING 30 tablet 3 Active omeprazole (PriLOSEC) [address] capsuleIndicati ons:Gastroesoph ageal reflux disease without esophagitis TAKE 1 CAPSULE BY MOUTH EVERY MORNING 90 capsule Active TRUEplus Lancets 33G misc Apply 1 each topically Once per day. TEST BLOOD SUGAR ONCE DAILY DIRECTED 100 each Active Yuflyma, 1 Pen, 40 MG/0.4ML Auto-injector Kit INJECT 40 MG (0.4 ML) SUBCUTANEOUSLY EVERY 2 WEEKS Active cholecalciferol (Vitamin D-3) 1.25 MG (27686 UT) capsule Take 1 capsule by mouth every 7 (seven) days. Active empagliflozin (Jardiance) 10 MGIndications:T ype 2 diabetes mellitus with stage 2 chronic kidney disease, without long-term current use of insulin (CMS/[facility]) ([facility]) Take 1 tablet (10 mg) by mouth Once per day. 30 tablet 2025 Active cyclobenzaprine (Flexeril) 5 MG tabletIndicatio ns:Chronic low back pain, unspecified back pain laterality, unspecified whether sciatica present TAKE 1 TABLET BY MOUTH THREE TIMES DAILY IN THE MORNING, AT NOON, AND AT BEDTIME NEEDED FOR MUSCLE SPASMS 90 tablet 3 025 Active Metamucil 4 in 1 Fiber 55.6 % powder Take 1 Scoop by mouth Once per day. 660 g 1 025 Active metoprolol tartrate (Lopressor) 25 MG tabletIndicatio ns:Primary hypertension Take 1 tablet (25 mg) by mouth 2 times daily. 60 tablet 11 025 Active atorvastatin (Lipitor) 40 MG tabletIndicatio ns:Type 2 diabetes mellitus with stage 2 chronic kidney disease, without long-term current use of insulin ([facility]) ([facility]) Take 1 tablet (40 mg) by mouth Once per day. 30 tablet 11 025 2025 Active oxyCODONE-aceta minophen (Percocet) 5-325 MG tabletIndicatio ns:Other chronic pain Take 1 tablet by mouth every 6 (six) hours if needed for severe pain for up to 28 days. 112 tablet 025 2024 Active omeprazole (PriLOSEC) [address] capsuleIndicati ons:Gastroesoph ageal reflux disease, unspecified whether esophagitis present Take 1 capsule (40 mg) by mouth before breakfast. Do not crush or chew. 90 capsule 3 Active valsartan (Diovan) 80 MG tablet Take 80 mg by mouth in the morning. Active Dulaglutide (Trulicity) 0.75 MG/0.5ML solution auto-injector Inject 0.75 mg under the skin 1 (one) time per week. 2 mL 3 Active hydroxychloroqu ine (Plaquenil) 200 MG tablet Take 1 tablet (200 mg) by mouth Once per day. 90 tablet 1 Active hydroquinone 4 % creamIndication s:Seronegative rheumatoid arthritis ([facility]) Apply topically in the morning and in the evening. 57 g 2 Active irbesartan (Avapro) 75 MG tablet Take 1 tablet by mouth at bed time. 2024 Discontinued(D iscontinued by another clinician) hydroxychloroqu ine (Plaquenil) 200 MG tablet 025 2024 Discontinued(R eorder (will not trigger notification to Pharmacy)) omeprazole (PriLOSEC) [address] capsule TAKE 1 CAPSULE BY MOUTH 025 2024 Discontinued(R eorder (will not trigger notification to Pharmacy)) morphine (MSIR) 15 MG tabletIndicatio ns:retirement current use of opiate analgesic,Fibro myositis Take 1 tablet (15 mg) by mouth every 8 (eight) hours for 28 days. Do not start before May 19, 2025. 84 tablet 025 2024 Discontinued(C ost of medication) oxyCODONE-aceta minophen (Percocet) 5-325 MG tabletIndicatio ns:Other chronic pain Take 1 tablet by mouth every 6 (six) hours if needed for severe pain for up to 28 days. Do not start before May 20, 2025. 112 tablet 025 2024 Discontinued hydroquinone 4 % creamIndication s:Seronegative rheumatoid arthritis (CMS/HCC) Apply topically in the morning and in the evening. 28.9 g 2 06/07/ 025 2024 Discontinued(R eorder (will not trigger notification to Pharmacy)) hydroquinone 4 % creamIndication s:Seronegative rheumatoid arthritis (CMS/HCC) Apply topically in the morning and in the evening. 28.9 g 2 06/24/ 025 2024 Discontinued(R eorder (will not trigger notification to Pharmacy)) Active Problems Problem Noted Date Diagnosed Date History of colon polyps 05/13/2025 Encounter for screening for malignant neoplasm o f colon 05/13/2025 Encounter for screening for malignant neoplasm o f rectum 05/13/2025 Venous hypertension of lower extremity Stage 3b chronic kidney disease 12/10/2024 long term current use of opiate analgesic 2024 Overview (05/19/2025): Dx: chronic back pain, fibromyalgia Rx: Percocet 5/325 every 6 hours Last [employer] agreement: 12/06/23 Tier II (visit every 3 months) Additional considerations: pain is not controlled with this regimen, consider switching to long acting formulation. One 05/14/25, we discussed switching to morphine IR 15mg q 8hours. However the pharmacy reports that this medication is on backorder until Jul 2025, so we will defer our plan until then. Timeline: Spider vein of lower extremity 07/30/2024 Family history of breast cancer 02/29/2024 Macular drusen, bilateral 08/05/2023 Overview (08/05/2023): Noted on eye exam 02/11/23 Breast calcification, right 05/03/2023 History of primary hyperparathyroidism Osteopenia 05/03/2023 Overview (05/03/2023): Pt has fallen out of bed at night multiple times. Has osteoporosis and high risk for falls. Would benefit from a bed with railings Seronegative rheumatoid arthritis 05/03/2023 Assessment & Plan (06/11/2025 8:32 AM EDT): Has used hydroquinine lotion in the past for autoimmune vascular rashes Will re-prescribe Apply twice daily as needed Followup if no improvement after 1-2 weeks Spondylosis of lumbar spine 05/03/2023 Mild intermittent asthma without complication Overview (05/03/2023): SHE HAS CHRONIC, INTERMITTENT BRONCHIAL ASTHMA. Use SEVERINO 03/17/23 Type 2 diabetes mellitus wit h stage 2 chronic kidney disease, without long-term current use of insulin ([facility]) 02/25/2023 Assessment & Plan (06/08/2024 11:55 AM EDT): A1C 5.9 Current regimen: Metformin 1000mg BID; Ozempic 0.5mg Microalbumin: due Lipid panel: ordered Foot exam: 06/04/24 Eye: 02/11/23 [facility]; No diabetic retinopathy or macular degeneration Statin: Atorvastatin 20mg MELLISSA/ARB: Irbesartan 75mg Assessment & Plan (02/08/2024 8:59 PM EDT): A1C 6.7 Current regimen: Metformin 1000mg BID; Victoza injection Microalbumin: due Lipid panel: today Foot exam: Perform next visit Eye: 02/11/23 [facility]; No diabetic retinopathy or [...] Renal stone 12/30/2020 Lupus anticoagulant syndrome 12/30/2020 Epidermoid cyst 04/16/2019 Right hemiparesis 04/04/2019 Loss of equilibrium 03/06/2019 Assessment & Plan (02/08/2024 9:01 PM EDT): Patient with R hemiparesis and bilateral chronic leg pain Needs new rollator walker with seat (old one R wheel is broken) and portable folding wheelchair Nail discoloration 11/03/2018 Asteatosis cutis 08/24/2018 Chronic constipation 08/02/2018 Overview (05/03/2023): - most likely due to chronic opiod use - continue miralax and colace Hyperlipidemia 01/04/2018 Obstructive sleep apnea syndrome 08/19/2017 Overview (05/03/2023): Uses CPAP machine Pulm appt 03/17/23 Chronic diastolic heart failure 04/22/2015 Overview (05/01/2025): 02/03/23: Cardiology appt Dr Avila. CHF with continuing SOB. 01/2024 ECHO results EF 60-65% Normal L ventricular function F/u annually with cardiology Assessment & Plan (05/03/2023 7:37 PM EDT): Will task MA to locate records from Echo and stress test Followup PRN Chronic low back pain 02/01/2014 Assessment & Plan (11/06/2024 2:33 PM EST): Pain not controlled on current regimen Will discuss other options at next clinic visit in 2 months Gastroesophageal reflux disease 02/01/2014 History of cholecystectomy 02/01/2014 Fibromyositis 05/05/2012 Hypertension 04/13/2012 Urinary incontinence 04/13/2012 Depressive disorder 1960 Resolved Problems Problem Noted Date Diagnosed Date Resolved Date Leg swelling 07/30/2024 05/01/2025 Skin mass 06/08/2024 05/01/2025 Weight loss 02/08/2024 05/01/2025 Assessment & Plan (02/08/2024 9:08 PM EDT): Patient has lost over 50 pounds with diet and exercise Now with excess skin folds of abdomen that have experienced fungal infection, will refer to plastic surgery for panniculectomy Dyslipidemia 05/03/2023 05/03/2023 retirement systemic steroid user 05/03/2023 06/25/2025 Long-term use of immunosuppressant medication 05/03/2005/03/2023 Lump in chest 05/03/2023 05/01/2025 Overview (05/03/2023): Lump right chest 20mm diameter, painful. Onset about 6 months Mammo BIRADS 2 on 04/23/23 Assessment & Plan (05/03/2023 7:36 PM EDT): Has US of R chest lump on 05/13/23 Notify results Followup PRN Health care maintenance 05/03/2023 07/0 12/2024 Overview (05/03/2023): Routine Health Maintenance: Immunizations: due [...] next visit Dental: discuss at next visit Stage 2 chronic kidney disease 12/30/2020 05/01/2025 Pain in lower limb 04/04/2019 Assessment & Plan (02/08/2024 8:58 PM EDT): On Gabapentin and Percocet Trial compression stockings when possible Diclofenac cream prn Continue BenGay Disorder of nail 08/24/2018 05/01/2025 Hypothyroidism 12/03/2014 06/25/2025 Assessment & Plan (02/08/2024 9:00 PM EDT): Continue daily Synthroid 75mcg Encounters Date Type Department Care Team Description 07/03/2025 10:00 AM EDT Clinical Support [address] [id number] Cookie Alcaraz, RN long term current use of opiate analgesic (Primary Dx) 07/03/2025 Travel 06/24/2025 3:15 PM EDT Office Visit [address] [address] Sue Alicia MD Other hyperlipidemia (Primary Dx); Type 2 diabetes mellitus with stage 2 chronic kidney disease, without long-term current use of insulin ([facility]) ([facility]); Primary hypertension; Seronegative rheumatoid arthritis ([facility]); Venous hypertension of lower extremity, unspecified laterality; long term current use of opiate analgesic; Depressive disorder; Obstructive sleep apnea syndrome 06/24/2025 Travel 06/21/2025 Telephone [facility] [address] [place] [phone] Sue Alicia MD chart prep 06/19/[address] [address] Jacinta Mederos, ABHIJIT Gastroesophageal reflux disease, unspecified whether esophagitis present 06/18/[address] [place] [address] Sue Alicia MD Medication Question 06/18/[address] [address] Sue Alicia MD Durable Medical Equipment (DME Request: Replacement Shower Chair) 06/18/2025 Refill [facility] [address] [place] [address] Sue Alicia MD Other chronic pain 06/11/2025 9:30 AM EDT Office Visit [facility] [address] [place] [phone] Vilma Mina MD Chronic low back pain, unspecified back pain laterality, unspecified whether sciatica present (Primary Dx); Other chronic pain 06/11/2025 Travel 06/07/2025 2:40 PM EDT Office Visit [facility] [address] [place] [phone] Sue Alicia MD Seronegative rheumatoid arthritis ([facility]) (Primary Dx); Type 2 diabetes mellitus with stage 2 chronic kidney disease, without long-term current use of insulin ([facility]/HCC) ([facility]/HCC); Primary hypertension 06/07/2025 Travel 06/06/2025 Telephone [facility] [address] [place] [phone] Sue Alicia MD Nurse Triage 06/03/2025 Telephone [facility] [address] [place] [address] Sue Alicia MD 05/17/2025 Refill [facility] [address] [place] [address] Sue Alicia MD Other chronic pain 05/14/2025 11:00 AM EDT Telemedicine [address] [address] Sue Alicia MD long term current use of opiate analgesic (Primary Dx); Fibromyositis 05/14/2025 Travel 05/13/2025 Telephone [facility] [address] [place] [phone] Sue Alicia MD Chart Prep 05/10/2025 Telephone [facility] [address] [place] [phone] Sue Alicia MD Medication Question 05/01/[address] [address] Sue Alicia MD Type 2 diabetes mellitus with diabetic chronic kidney disease ([facility]/HCC) 04/19/2025 11:15 AM EDT Office Visit [address] [address] Sue Alicia MD Type 2 diabetes mellitus with stage 2 chronic kidney disease, without long-term current use of insulin ([facility]) ([facility]) (Primary Dx); Seronegative rheumatoid arthritis ([facility]); Right hemiparesis ([facility]); Chronic diastolic heart failure ([facility]); DONI (acute kidney injury) ([facility]); Other chronic pain; Chronic low back pain, unspecified back pain laterality, unspecified whether sciatica present; Dietary counseling; Exercise counseling; retirement current use of opiate analgesic; Mild intermittent asthma without complication; Depressive disorder; Primary hypertension; Other hyperlipidemia 04/19/2025 Travel 04/17/2025 Telephone [facility] [address] [place] [phone] Sue Alicia MD CHART PREP 04/17/2025 Refill [facility] [address] [place] [address] Sue Alicia MD Other chronic pain 04/11/2025 Orders Only [facility] External Provider, [facility] 04/10/2025 Patient Outreach [facility] [address] [place] [phone] Sue Alicia MD Care Coordination ([facility] outreach for SDOH food needs-referral completed /) 04/10/2025 Patient Outreach [address] [address] Sue Alicia MD Pre-visit Planning (SDOH screening positive and tobacco screening positive) from Last 3 Months Immunizations Immunization Administration Dates Next Due Influenza injectable quadriv [...] Answer Date Recorded Patient Health Questionnaire-9 Score 14 04/19/2025 Patient Health Questionnaire-9 Score 14 04/19/2025 Last PHQ-9: Questionnaire Data Not on file 0 04/19/2025 Housing Stability Answer Date Recorded What is your housing situation today? I have george winters 04/10/[address] you li ve. Do you have problems with any of the following? None of the above 04/10/2025 Food Insecurity Answer Date Recorded Within the past 12 months, y ou worried that your food would run out before you got money to buy more: Often true 04/10/2025 Within the past 12 months,th e food you bought just didn't last and you didn't have enough money to get more: Often true 08/2025 Transportation Answer Date Recorded In the past 12 months, has l ack of transportation kept you from medical appts, meetings, work or from getting things needed for daily living? No 04/10/2025 Utilities Answer Date Recorded In the past 12 months, has t he electric, gas, oil or water company threatened to shut off services in your home? No 04/10/2025 Depression Answer Date Recorded Patient Health Questionnaire-2 Score 4 04/19/2025 Internet Access Answer Date Recorded Internet Access Q1 Yes 04/10/2025 Internet Access Q2 Not on file 04/10/2025 Comments No Sex and Gender Information Value Date Recorded Sex Assigned at Female 08/30/2022 10:14 AM EDT Legal Sex Female 10:14 AM EDT Gender Identity Female 08/30/2022 10:14 AM EDT Sexual Orientation Straight 08/30/2022 10 :14 AM EDT Last Filed Vital Signs Vital Sign Reading Time Taken Comments Blood Pressure 124/80 06/24/2025 3:18 PM EDT Pulse 100 06/24/2025 3:18 PM EDT Temperature 36.2 C (97.1 F) 06/24/2025 3:18 PM EDT Respiratory Rate 20 06/24/2025 3:18 PM EDT Oxygen Saturation 100% 06/04/2024 3:30 PM EDT Inhaled Oxygen Concentration - - Weight 65.7 kg (144 lb 12.8 oz) 06/24/2025 3:18 PM EDT Height 157.5 cm (5' 2 ) 06/24/2025 3:18 PM EDT Body Mass Index 26.48 06/24/2025 3:18 PM EDT Plan of Treatment Upcoming Encounters Date Type Department Care Team (Late st Contact Info) Description 07/30/2025 11:30 AM EDT Office Visit [facility] [address] [place] [phone] Sue Alicia MD [address] [place] [address] 09/30/2025 10:00 AM EST Clinical Support [facility] [address] [place] [address] Cookie Alcaraz RN 11/18/2025 11:00 AM EST Office Visit [facility] [address] [place] [address] Clover Null, OD [address] [place] [address] Health Maintenance Due Date Last Done Comments CT Colonography 1960 FIT DNA/Cologuard 1960 FIT 1960 FOBT 1960 Sigmoidoscopy 1960 RSV Patients and Patients Aged 60 years or older (1 - Risk 60-74 years 1-dose series) 2019 Zoster Vaccines (2 of 2) 05/21/2022 03/26/2022 Lipid Panel 06/10/2023 06/10/2022, 02/11/2021 Pap Smear 02/28/2025 02/29/2024 Diabetes: Foot Exam 06/04/2025 06/04/2024, 06/04/2024, 06/04/2024, Additional history exists COVID-19 Vaccine ( season) 2025 09/23/2021, 01/21/2021 Influenza Vaccine (#1) 2025 , 09/19/2020, 08/20/2019, Additional history exists Mammogram 08/08/2025 08/08/2024, 04/01, 04/23/2023, Additional history exists Depression Monitoring 10/19/2025 04/19/2025, 025 Diabetes: Hemoglobin A1C 12/25/2025 025, 04/19/2025, 06/04/2024, Additional history exists SDOH Screening 04/10/2026 04/10/2025 Alcohol/Substance Use Screening 04/19/2026 04/19/2025 Tobacco Screening 06/24/2026 06/24/2025 Colonoscopy 07/19/2026 07/19/2016 Colorectal Cancer Screening 07/19/2026 Eye Exam 10/22/2026 10/22/2024, 10/01, 10/22/2024, Additional history exists Cervical Cancer Screening 02/28/2027 Po stponed from 02/28/2025 (Other Medical Reasons) DTaP/Tdap/Td Vaccines (2 - Td or Tdap) [...] Comments POCT EDMOND-14 URINE DRUG SCREEN Routine 07/03/2025 9:51 AM EDT retirement current use of opiate analgesic POCT GLYCATED HEMOGLOBIN, TOTAL Routine 06/24/2025 4:31 PM EDT Type 2 diabetes mellitus with stage 2 chronic kidney disease, without long-term current use of insulin ([facility]/HCC) ([facility]) POCT GLUCOSE Routine 06/24/2025 3:19 PM EDT Type 2 diabetes mellitus with stage 2 chronic kidney disease, without long-term current use of insulin (CMS/HCC) (CMS/HCC) POCT GLYCATED HEMOGLOBIN, TOTAL Routine 04/19/2025 11:24 AM EDT Type 2 diabetes mellitus with stage 2 chronic kidney disease, without long-term current use of insulin (CMS/HCC) (CMS/[facility]) POCT GLUCOSE Routine 04/19/2025 11:23 AM EDT Type 2 diabetes mellitus with stage 2 chronic kidney disease, without long-term current use of insulin (CMS/HCC) (CMS/HCC) CTA CHEST PE PROTOCAL Routine 04/12/2025 8:30 PM EDT VASC US LOWER EXTREMITY VENOUS DUPLEX BILATERAL Routine 04/12/2025 2:58 PM EDT NM LUNG PERFUSION Routine 04/12/2025 9:0 9 AM EDT XR CHEST 2 VIEWS Routine 04/10/2025 12:0 1 AM EDT BI MAMMOGRAM SCREENING TOMOSYNTHESIS BILATERAL Routine 08/08/2024 11:20 AM EDT Breast cancer screening by mammogram HPV MRNA E6/E7 REFLEX TO HPV 16, 18/45 Routine 02/29/2024 9:12 AM EDT PAP SMEAR Routine 02/29/2024 9:12 AM EDT Cervical cancer screening [facility] HISTORICAL LIPID PANEL Routine 06/10/2022 10:29 AM EDT [facility] HISTORICAL HEPATITIS A,B,C PROFILE Routine 12/26/2019 12:05 PM EST COLONOSCOPY Routine 07/19/2016 from Last 3 Months or Most Recently Relevant to Health Maintenance Results * POCT EDMOND-14 Urine Drug Screen (07/03/2025 9:51 AM EDT) THC Positive Negative Cocaine Screen, Urine Negative Negative Opiate Screen, Urine Negative Negative Methamphetamine Screen Urine Negative Negative Amphetamine Screen, Urine Negative Negative Benzodiazepines Screen, Urine Negative Negative Barbiturate Screen, Urine Negative Negative Methadone Screen, Urine Negative Negative Buprenophine Screen, Urine Negative Negative TCA, Urine Positive Negative MDMA Urine Negative Negative ng/mL Oxycodone Screen, Urine Positive Negative Phencyclidine (PCP), Urine Negative Negative Propoxyphene, Urine Negative Negative Fentanyl, Urine Negative Negative Urine Urine specimen obtained by clean catch procedure / Unknown 07/03/2025 9:51 AM EDT Narrative Cookie Alcaraz RN - 07/03/2025 9:51 AM EDT UTOX cup Lot#[id number] Exp. 08/06/26 Internal Pass Control us Sue Alicia MD POINT OF CARE TEST ENTER/EDIT ORDERABLES Final Result * POCT HGB A1C (06/24/2025 4:31 PM EDT) Only the most recent of2 resultswithin the time period is included. Hemoglobin A1C 5.7 4.0 - 5.7 % QC Media Lot # [id number] Lot# Expiration Date Blood 06/24/2025 4:31 PM EDT Sue Alicia MD POINT OF CARE TEST ENTER/EDIT ORDERABLES Final Result * POCT Glucose (06/24/2025 3:19 PM EDT) Only the most recent of2 resultswithin the time period is included. Glucose Blood, POC 111 60 - 200 mg/dL QC Media Lot # [id number] Lot# Expiration Date 72 Blood Capillary blood specimen / Unknown 06/24/2025 3:19 PM EDT Sue Alicia MD POINT OF CARE TEST ENTER/EDIT ORDERABLES Final Result * CTA Chest PE Protocal (04/12/2025 8:30 PM EDT) Anatomical Region Laterality Modality Body, Chest Computed Tomogra phy 04/12/2025 8:30 PM EDT Narrative 04/12/2025 8:32 PM EDT [address] [address] [address] Scan Report Signed Patient: Nicky Lopez MR#: [id number] 3 : 1960 Acct:[id number] Age/Sex: 64 / F ADM Date: 04/11/25 Loc: HO.S3 [id number]: Hector Kemp MD Ordering Physician: Supa Orozco MD Date of Service: 04/12/25 Procedure(s): CT angio chest PE protocol Accession Number(s): [id number] cc: Supa Orozco MD; Sue Alicia Report Number: [id number]: Total DLP = 338.00 mGy-cm CLINICAL HISTORY: high prob PE on V Q, dyspnea CT angiography chest with contrast. 3D Postprocessing. Comparison: None Findings: No pulmonary artery filling defect demonstrated. Bilateral lower lobe posterior-dependent atelectasis with superimposed consolidation. Mild cardiomegaly. No pericardial effusion. No thoracic aortic aneurysm or dissection. Bones intact. IMPRESSION: No pulmonary embolism. Bilateral lower lobe posterior -dependent atelectasis with superimposed consolidation suspicious for pneumonia or aspiration. This document has been electronically signed by: Tyler Christine MD on 04/12/2025 20:30:31 Dictated By: Tyler Christine MD Signed By: <Electronically signed by Tyler Christine MD in OV> 04/12/252030 DD/ 29 TD/TT: 04/12/252029 Sand Slinger: Procedure Note Donotuseinterpreter, Image - 04/12/[address] [place] [address] [address] Scan Report Signed Patient: Aleshia Lopez#: [id number] 3 : 9Acct:[id number] Age/Sex: 64 / FADM Date: 04/11/25 Loc: HO.S3 353-[address]: Hector Kemp MD Ordering Physician: Supa Orozco MD Date of Service: 04/12/25 Procedure(s): CT angio chest PE protocol Accession Number(s): [id number] cc: Supa Orozco MD; Sue Alicia Report Number: [id number]: Total DLP = 338.00 mGy-cm CLINICAL HISTORY: high prob PE on V Q, dyspnea CT angiography chest with contrast. 3D Postprocessing. Comparison: None Findings: No pulmonary artery filling defect demonstrated. Bilateral lower lobe posterior-dependent atelectasis with superimposed consolidation. Mild cardiomegaly. No pericardial effusion. No thoracic aortic aneurysm or dissection. Bones intact. IMPRESSION: No pulmonary embolism. Bilateral lower lobe posterior -dependent atelectasis with superimposed consolidation suspicious for pneumonia or aspiration. This document has been electronically signed by: Tyler Christine MD on 04/12/2025 20:30:31 Dictated By: Tyler Christine MD Signed By: <Electronically signed by Tyler Christine MD in OV> 04/12/252030 DD/ 29 TD/TT: 04/12/252029 Sand Slinger: [facility] External Provider IMG CT PROCEDURES Final Result * [facility] US Lower Extremity Venous Duplex Bilateral (04/12/2025 2:58 PM EDT) 04/12/2025 2:58 PM EDT Narrative [facility] - 04/12/2025 3:36 PM EDT [place] [address] Ultrasound Report Signed Patient: Nicky Lopez MR#: [id number] 3 : 1960 Acct:[id number] Age/Sex: 64 / F ADM Date: 04/11/25 Loc: .S3 353-[address]: Hector Kemp MD Ordering Physician: Supa Orozco MD Date of Service: 04/12/25 Procedure(s): US venous duplex LE Accession Number(s): [id number] cc: Supa Orozco MD; Sue Alicia EXAMINATION: US TRIPLEX LOWER EXTREMITY, BILATERAL CLINICAL INFORMATION: High probability for pulmonary embolus on perfusion scan COMPARISON: None available. TECHNIQUE: Color-flow triplex imaging with spectral analysis and compression Doppler were performed on the bilateral lower extremities. FINDINGS: Respiratory variation, normal compression and augmented flow are noted throughout the bilateral lower extremities. The visualized common femoral vein, superficial femoral vein, profunda femoral vein, popliteal vein and midcalf peroneal and posterior tibial venous segments show no evidence of deep venous thrombosis bilaterally. US/US venous duplex LE BI IMPRESSION: No evidence of deep venous thrombosis involving the bilateral lower extremities. Electronically signed by: Anish Cheung MD 04/12/2025 03:33 PM EDT RP Dictated By: Anish Cheung MD Signed By: <Electronically signed by Anish Cheung MD in OV> 04/12/25 1533 DD/ 1458 TD/TT: 04/12/25 1518 [place]: Procedure Note Donotuseinterpreter, Image - 04/12/2025 [place] [address] Ultrasound Report Signed Patient: Aleshia Lopez#: [id number] 3 : 9Acct:[id number] Age/Sex: 64 / FADM Date: 04/11/25 Loc: HO.S3 353-[address]: Hector Kemp MD Ordering Physician: Supa Orozco MD Date of Service: 04/12/25 Procedure(s): US venous duplex LE BI Accession Number(s): [id number] cc: Supa Orozco MD; Sue Alicia EXAMINATION: US TRIPLEX LOWER EXTREMITY, BILATERAL CLINICAL INFORMATION: High probability for pulmonary embolus on perfusion scan COMPARISON: None available. TECHNIQUE: Color-flow triplex imaging with spectral analysis and compression Doppler were performed on the bilateral lower extremities. FINDINGS: Respiratory variation, normal compression and augmented flow are noted throughout the bilateral lower extremities. The visualized common femoral vein, superficial femoral vein, profunda femoral vein, popliteal vein and midcalf peroneal and posterior tibial venous segments show no evidence of deep venous thrombosis bilaterally. US/US venous duplex LE BI IMPRESSION: No evidence of deep venous thrombosis involving the bilateral lower extremities. Electronically signed by: Anish Cheung MD 04/12/2025 03:33 PM EDT RP Dictated By: Anish Cheung MD Signed By: <Electronically signed by Anish Cheung MD in OV> 04/12/25 1533 DD/ 1458 TD/TT: 04/12/25 1518 [place]: us [facility] External Provider CV VASC ULAR PROCEDURES Final Result [facility] [address] [place] [phone] * NM Lung Perfusion (04/12/2025 9:09 AM EDT) Anatomical Region Laterality Modality Body Nuclear Medicine 04/12/2025 9:09 AM EDT Narrative 04/12/2025 11:20 AM EDT [address] [address] Nuclear Medicine Report Signed Patient: Nicky Lopez MR#: [id number] 3 : 1960 Acct:[id number] Age/Sex: 64 / F ADM Date: 04/11/25 Loc: HO.S3 353-[address]: Hector Kemp MD Ordering Physician: Belkis Goodwin Date of Service: 04/12/25 Procedure(s): NM pul perfusion Accession Number(s): [id number] cc: Sue Alicia; Belkis Goodwin EXAMINATION: NM LUNG PERFUSION HISTORY: elevated d dimer r/o PE. TECHNIQUE: A pulmonary perfusion scan was performed following the intravenous administration of 4.0 mCi technetium 99m-MAA. Multiple projections. COMPARISON: Correlation is made with AP and lateral views of the chest dated 04/11/2025. FINDINGS: There are segmental perfusion defects involving the posterior basal segments of both lower lobes. No additional segmental or subsegmental perfusion defects are identified. Findings are compatible with a high probability for pulmonary emboli. NM/NM pul perfusion IMPRESSION: High probability scan for pulmonary emboli. A report was sent to Nallely Alexandra NP by secure text message on 04/12/2025 at 11:16 AM. Electronically signed by: Isael Olivas MD 04/12/2025 11:17 AM EDT Dictated By: Isael Olivas MD Signed By: <Electronically signed by Isael Olivas MD in OV> 04/12/25 1117 DD/ 0909 TD/TT: 04/12/25 1045 [place]: Procedure Note Donotuseinterpreter, Image - 04/12/2025 [place] [address] Nuclear Medicine Report Signed Patient: Aleshia Lopez#: [id number] 3 : 9Acct:[id number] Age/Sex: 64 / FADM Date: 04/11/25 Loc: HO.S3 353-[address]: Hector Kemp MD Ordering Physician: Belkis Goodwin Date of Service: 04/12/25 Procedure(s): NM pul perfusion Accession Number(s): [id number] cc: Sue Alicia; Belkis Goodwin EXAMINATION: NM LUNG PERFUSION HISTORY: elevated d dimer r/o PE. TECHNIQUE: A pulmonary perfusion scan was performed following the intravenous administration of 4.0 mCi technetium 99m-MAA. Multiple projections. COMPARISON: Correlation is made with AP and lateral views of the chest dated 04/11/2025. FINDINGS: There are segmental perfusion defects involving the posterior basal segments of both lower lobes. No additional segmental or subsegmental perfusion defects are identified. Findings are compatible with a high probability for pulmonary emboli. NM/NM pul perfusion IMPRESSION: High probability scan for pulmonary emboli. A report was sent to Nallely Alexandra NP by secure text message on 04/12/2025 at 11:16 AM. Electronically signed by: Isael Olivas MD 04/12/2025 11:17 AM EDT RP Dictated By: Isael Olivas MD Signed By: <Electronically signed by Isael Olivas MD in OV> 04/12/25 1117 DD/ 0909 TD/TT: 04/12/25 1045 [place]: [facility] External Provider IMG NM PROCEDURES Final Result * XR Chest 2 Views (04/10/2025 12:01 AM EDT) Anatomical Region Laterality Modality Chest Radiographic Tammie ging 04/10/2025 12:0 1 AM EDT Narrative 04/10/2025 12:03 AM EDT [address] [address] XRay Report Signed Patient: Nicky Lopez MR#: [id number] 3 : 1960 Acct:[id number] Age/Sex: 64 / F ADM Date: 04/09/25 Loc: .ED Attending Dr: Ordering Physician: Generic ED Physician Date of Service: 04/09/25 Procedure(s): XR chest 2V Accession Number(s): [id number] cc: Generic ED Physician; Sue Alicia CLINICAL HISTORY: sob 2 view chest x-ray Comparison: None Findings: No consolidation or effusion. Normal size heart. No acute fracture. IMPRESSION: 1. No acute findings. This document has been electronically signed by: Megan Ann MD on 04/10/2025 00:01:56 Dictated By: Megan Ann MD Signed By: <Electronically signed by Megan Ann MD in OV> 04/10/25 0002 DD/ 0001 TD/TT: 04/10/25 0001 [place]: Procedure Note Donotgermaineinterpreter, Image - 04/10/[address] [address] XRay Report Signed Patient: Starla LopezR#: [id number] 3 : 1960cct:[id number] Age/Sex: 64 / FADM Date: 04/09/25 Loc: HO.ED Attending Dr: Ordering Physician: Generic ED Physician Date of Service: 04/09/25 Procedure(s): XR chest 2V Accession Number(s): [id number] cc: Generic ED Physician; Sue Alicia CLINICAL HISTORY: sob 2 view chest x-ray Comparison: None Findings: No consolidation or effusion. Normal size heart. No acute fracture. IMPRESSION: 1. No acute findings. This document has been electronically signed by: Megan Ann MD on 04/10/2025 00:01:56 Dictated By: Megan Ann MD Signed By: <Electronically signed by Megan Ann MD in OV> 04/10/25 0002 DD/ 0001 TD/TT: 04/10/25 0001 [place]: [facility] External Provider IMG XR PROCEDURES Edited Result - Final * BI Mammogram Screening Tomosynthesis Bilateral (08/08/2024 11:20 AM EDT) Anatomical Region Laterality Modality Breast Bilateral Mammography 08/08/2024 11:2 0 AM EDT Narrative 08/20/2024 6:01 PM EDT [facility] [place] [address] Mammography Report Signed Patient: Nicky Lopez MR#: [id number] 3 : 1960 Acct:[id number] Age/Sex: 63 / F ADM Date: 08/08/24 Loc: HO.MAMMO Attending Dr: Isael Hollis MD Ordering Physician: LATRICE FORBES CNM Results: 2 Benign Findings Date of Service: 08/08/24 Follow Up: 1 Year From Orig ina Mammogram Procedure(s): MM tomosynthesis screening BI Accession Number(s): [id number] cc: Sue Alicia; LATRICE FORBES CNM EXAMINATION: [...] 08/20/24 1758 DD/ 1120 TD/TT: 08/08/24 1140 [place]: Procedure Note Donotuseinterpreter, Image - 08/20/2024 [facility] [address] [place] [address] Mammography Report Signed Patient: Aleshia Lopez#: [id number] 3 : 9Acct:[id number] Age/Sex: 63 / FADM Date: 08/08/24 Loc: HO.MAMMO Attending Dr: Isael Hollis MD Ordering Physician: LATRICE FORBESesults: 2 Benign Findings Date of Service: 08/08/24Follow Up: 1 Year From Orig ina Mammogram Procedure(s): MM tomosynthesis screening BI Accession Number(s): [id number] cc: Sue Alicia; LATRICE FORBES CNM EXAMINATION: [...] 08/20/24 1758 DD/ 1120 TD/TT: 08/08/24 1140 [place]: [facility]ED[facility] Edited Result - Final * HPV mRNA E6/E7 w/Reflex to HPV Genotypes 16, 18/45 (02/29/2024 9:12 AM EDT) HPV nRNA E6/E7 Not Detected Not Detected [facility] Comment:Methodology: Transcr iption-Mediated AmplificationThis assay detects E6/E7 viral messenger RNA (mRNA) from 14high-risk HPV types (16,18,31,33,35,39,45,51,52,56,58,59,66,68).Cervical sources are required for HPV testing.If a vaginal source from a patient who has had atotal hysterectomy with removal of cervix wassubmitted, please contact the testing laboratoryfor alternative testing options.For additional information, please refer tohttp://education.[email or web address]/faq/JDT964b6(This link if provided for information/educational purposes only.)THIS TEST WAS PERFORMED AT:[employer] [place] [phone] RODRIGES MD HPV mRNA E6/E7 [facility] HPV 16 RNA [facility] HPV 18/45 RNA [facility] 02/29/2024 9:12 AM EDT 03/05/2024 8:00 AM EDT us Latrice Forbes CNM LAB CYTOLOGY ORDERABLES F inal Result [facility] [address] [place] [phone] * Pap Smear (02/29/2024 9:12 AM EDT) Swab Cervix uteri structure / Unknown 02/29/2024 9:12 AM EDT 03/05/2024 8:00 AM EDT Narrative [facility] - 03/27/2024 3:52 PM EDT ----- ------- Name: LopezNicky beckwith Age/Sex: 63/F : 1960 Unit#: [id number] Attend Dr: LATRICE FORBES CNM Re02/29/24 Status: DEP REF Location: HO.HHCLNP Disch: ----- ------- SPEC : [id number] RECD: 03/05/24 STATUS: LINDA WILLS NUM: [id number] [place]: [address]: LATRICE FORBES CNM ENTERED: 03/05/24 SP TYPE: Pap Smr OTHR DR: ORDERED: Pap Smear Interpretation Satisfactory for evaluation. No endocervical cells seen. Negative for intraepithelial lesion or malignancy. HPV mRNA E6/E7: NOT DETECTED This assay detects E6/E7 viral messenger RNA (mRNA) from 14 high-risk HPV types (16, 18, 31, 33, 35, 39, 45, 51, 52, 56, 58, 59, 66, 68) HPV testing performed by [employer], [place], [place]. See reference laboratory portion of the EMR for entire report. Clinical Information LMP: Postmenopausal Previous PAP test: 01/2019, NIL/HPV- Material Received ThinPrep-Cervical ----- ------- Signed (signature on file) MAC Toro (ASCP) 03/27/24 1552 ----- ------- END OF REPORT us Latrice Forbes CNM LAB CYTOLOGY ORDERABLES F inal Result [facility] [address] [place] [phone] * (ABNORMAL) LIPID PANEL (06/10/2022 10:29 AM EDT) Cholesterol 156 mg/dL [facility] Comment: Desirable Cholesterol: less than 200 mg/dL Borderline High Cholesterol: 200-239 mg/dL High Cholesterol: greater than 239 mg/dL HDL Cholesterol 43 mg/dL [facility] Comment: Desirable HDL: greater than 40 mg/dL Note: This HDL assay may give artificially low results in patients with liver disease. LDL Cholesterol Calculated 92 mg/dl [facility] Comment: Desirable LDL: less than 100 mg/dL Near Optimal/Above Optimal LDL: 110-129 mg/dL Borderline High LDL: 130-159 mg/dL High LDL: 160-189 mg/dL Very High LDL: greater than or equal to 190 mg/dL Triglycerides 109 mg/dL [facility] Comment: Desirable Triglyceride: less than 150 mg/dL Borderline High Triglyceride 150-199 mg/dL High Triglyceride: 200-499 mg/dL Very High Triglyceride: greater than or equal to 5OO mg/dL Alanine Aminotransferase 11 0 - [...] Rate >60 [facility] Comment: NOTE: For -Spanish individuals, multiply the result by 1.210. Chronic Kidney Disease: Estimated GFR < 60 mL/min/1.73m2 Severe Kidney Disease: Estimated GFR < 15 mL/min/1.73m2 Glucose Random 92 [...] ORDERABLE LABS Final Result Performing Organization Address [facility] Co de Phone Number [facility] [address] * HEPATITIS A,B,C PROFILE (12/26/2019 12:05 [...] infection. 12/26/2019 12:0 5 PM EST Historical Michael DOWNS HISTORICAL/NON ORDERABLE LABS Final Result Performing Organization Address [facility] de Phone Number [facility] [address] * Colonoscopy (07/19/2016) Anatomical Region Laterality Modality Endoscopy Impressions 07/19/2016 07/19/2016 internal hemorrhoids, sigmoid diverticulosis. Recommend repeat in 10 years. 07/2026 Historical Provider ENDOSCOPY PROCEDURE ORDER KOBY Final Result from Last 3 Months or Most Recently Relevant to Health Maintenance Insurance MEDICARE [facility] Care Teams Snack Steward Relationship Specialty Start Date End Date Sue Alicia MD [address] [place] [address] PCP - General Family Medicine 08/09/23
--- OUTSIDE RECORDS SUMMARY | 2025-07-11 12:24 | XMS_ITS | Encounter Summary ---
Author Organization [employer] Address [address] [facility] [address] [place] [address] Care Team Providers Care Rigging Engineer Name Role Phone Sue Alicia MD Primary Care Provider [phone] Reason for Visit * Reason Comments Med Refill Encounter Details Date Type Department Care Team ([facility] st Contact Info) Description 08/28/2024 Refill C [facility] [address] [place], [place] [phone] Sue Alicia MD [address] [place] [address] Chronic low back pain, unspecified back pain [...] the past 12 months, has t he [employer], gas, oil or water [employer] threatened to shut off services in your [...] 07/30/2025 11:30 AM EDT Office Visit [facility] [address] [place] [address] Sue Alicia MD [address] [place] [address] 09/30/2025 10:00 AM EST Clinical Support [facility] [address] [place] [address] Cookie Alcaraz RN 11/18/2025 11:00 AM EST Office Visit [facility] [address] [place] [address] Clover Null, OD [address] [place] [address] documented as of this encounter Visit Diagnoses Diagnosis Chronic low back pain, unspecified back pain laterality, unspecified whether sciatica present documented in this encounter Additional Health Concerns Assessment Noted Time PHQ-9 Depression Total Score: 19 024 2:37 PM EDT documented as of this encounter Care Teams Rigging Engineer Relationship Specialty Start Date End Date Sue Alicia MD [address] [place] [address] PCP - General Family Medicine 08/09/23 documented as of this encounter
--- OUTSIDE RECORDS SUMMARY | 2025-07-11 12:24 | XMS_ITS | Clinical Summary ---
Author Organization [facility] Address [address] [facility] [address] [place] [address] Phone Care Team Providers Care Operations Support Analyst Name Role Phone Sue Alicia MD Primary Care Provider [phone] Allergies Active Allergy Reactions Criticality Noted Date Comments Aspirin 12/30/2020 Doxycycline 03/15/2022 Other reaction(s): pt. unsure Iodixanol Rash Low 03/15/2022 Penicillins 12/30/2020 Medications Cyclobenzaprin e HCl (FLEXERIL PO) Take 1 tablet by mouth 1 (one) time each day Active ProAir HFA 108 (90 Base) MCG/ACT inhaler INHALE 2 PUFFS EVERY 6 HOURS NEEDED FOR SHORTNESS OF BREATH OR FOR WHEEZING 1 Active atorvastatin (LIPITOR) 20 MG tablet Take 20 mg by mouth 1 (one) time each day Active levothyroxine (SYNTHROID, LEVOTHROID) 50 MCG tablet Take 1 tablet by mouth 1 (one) time each day Active Victoza 18 MG/3ML injection INJECT 1.8 MG SUBCUTANEOUSLY EVERY DAY 1 Active omeprazole (PriLOSEC) [address] capsule Take 1 capsule by mouth 1 (one) time each day Active HYDROcodone-ac etaminophen (NORCO) 5-325 MG per tablet Take 1 tablet by mouth if needed Active Active Problems Problem Noted Date Diagnosed [...] systemic lupus erythematosus (SLE) i nhibitor 12/30/2020 Encounters Date Type Department Care Team Description 05/14/2025 3:45 PM EDT Office Visit [facility] [address] [place] [address] [address] [place] [address] Reny Smith ARNP Acute nontraumatic kidney injury, not otherwise specified (HCC) (Primary Dx); Stage 3b chronic kidney disease (HCC); Benign essential hypertension from Last 3 Months Immunizations Immunization Administration Dates Next Due Influenza Split 07/25/2012 Influenza, Quadrivalent, Pre servative Free 07/23/2021,09/19/2020,07/18/2017,07/25 Influenza, Quadrivalent, Wit h Preservative 08/02/2018,07/23/2016 Influenza, Trivalent, Adjuvanted 08/20/2019 [employer] SARS-COV-2 01/21/2021 Pfizer SARS-COV-2 09/23/2021 Pneumococcal Conjugate [...] Care Team (Late st Contact Info) Description 07/11/2025 4:00 PM EDT Office Visit [facility] [address] [place] [place] [address] Ben Cummins MD [address] [facility] [address] [place] [address] Health Maintenance Due Date Last Done Comments Breast Cancer Screening 1960 Colorectal Cancer Screening: Annual FOBT 2008 Colorectal Cancer Screening: Colonoscopy 2008 Colorectal Cancer Screening: Sigmoidoscopy 2008 Diabetes: Ophthalmology Exam 11/30/2020 Diabetes: Pedal Pulse Checked 11/30/2020 Diabetes: Sensory Foot Exam 11/30/2020 Diabetes: Visual Foot Exam 11/30/2020 Influenza Vaccine (#1) 2025 , 09/19/2020, 08/20/2019, Additional history exists Diabetes: Hemoglobin A1C 09/24/202506/24/ 025, 04/19/2025, 06/04/2024, Additional history exists Pneumococcal Vaccine: 50+ Years Completed 04/20/2023, 08/16/2018, 10/04/2017 Pneumococcal Vaccine: Peds (0 to 5 Years) and At-Risk Patients (6 to 49 Years) Discontinued 04/20/2023, 08/16/2018, 10/04/2017 Hepatitis B Vaccine Aged Out No longe r eligible based on patient's age to complete this topic Procedures Procedure Name Priority Date/Time Associated Diagnosis Comments EXT RESULT ENTRY Routine 04/14/2025 HEMOGLOBIN A1C Routine 10/26/2023 9:17 AM EST [...] 8.7 - 10.7 mg/dL eGFR 42 04/14/2025 [facility] Provider LAB BLOOD ORDERABLES Angelique salomón Result * Hemoglobin A1c (10/26/2023 9:17 AM EST) [...] average glucose, using the formula of the J1M-Uyzsdwa Average Glucose study (ADAG), Diabetes Care, Vol.31,#8, May. 2007 Blood specimen (specimen) Venous blood / Unknown 10/26/2023 9:17 AM EST 10/26/2023 9:17 AM EST Ben Cummins MD LAB BLOOD ORDERABLES Final Re sult [place] from Last 3 Months or Most Recently Relevant to Health Maintenance Insurance [address] [place] [address] Medicaid [place] [address] [place] [id number] Medicaid [place] Medicare Care Teams Operations Support Analyst Relationship Specialty Start Date End Date Sue Alicia MD [address] [place] [address] PCP - General Coal Picker 05/14/25
--- OUTSIDE RECORDS SUMMARY | 2025-07-11 12:24 | XMS_ITS | Encounter Summary ---
Author Organization [employer] Address [address] [place] [address] Care Team Providers Care Online Banking Specialist Name Role Phone Physician, No Pcp Primary Care Provider Unavaila ble Encounter Details Date Type Department Care Team (Late st Contact Info) Description 03/12/2025 Lab Requisition [facility] - Main Lab [address] [facility] [place] [address] Noe Falk MD [address] [place] [address] Persistent proteinuria, unspecified; Chronic kidney disease, stage 4 (severe) (CMS/HCC V24, CMS/HCC V28) Social History Tobacco Use Types Packs/Day Years Used Date Smoking Tobacco: Never Assessed Comments Unknown Sex and Gender Information Value Date Recorded Sex Assigned at Not on file Legal Sex Female 9:05 AM EST Gender Identity Not on file Sexual Orientation Not on file documented as of this encounter Plan of Treatment Not on file documented as of this encounter Procedures Procedure Name Priority Date/Time Associated Diagnosis Comments AP KIDNEY BIOPSY Routine 03/12/2025 Persistent proteinuria, unspecified Chronic kidney disease, stage 4 (severe) (CMS/HCC V24, CMS/HCC V28) TISSUE EXAM Routine 03/12/2025 Persistent proteinuria, unspecified Chronic kidney disease, stage 4 (severe) (CMS/HCC V24, CMS/HCC V28) documented in this encounter Results * AP Kidney biopsy (03/12/2025) Scan Result See Scanned Result 04/02/2025 10:06 PM EDT EXTERNAL LAB (NON-INTERFAC ED) Tissue Left kidney structure / Unknown 03/12/2025 03/12/2025 3:19 PM EDT us Noe Falk MD LAB PATHOLOGY ORDERABLES Final Result EXTERNAL LAB (NON-INTERFACED) * Tissue Exam (03/12/2025) Addendum 2 [facility], Department of Pathology, [place], [place] (CLIA#[id number]) sent an addendum report to add Electron Microscopy results. (See scanned addendum report from [facility], [place], [place]) 04/10/2025 10:30 AM EDT [facility] ([facility]) [facility] Addendum electronically signed by Mckinley Chavez MD on 04/10/2025 at 10:30 AM Addendum This case was sent to [facility], Department of Pathology, [place], [place] (CLIA: [id number]). Their diagnosis is summarized as follows: Pathologic Diagnosis: Kidney Biopsy (Needle) Diffuse glomerular hypoperfusion in the setting of severe vascular sclerosis No evidence of immune complex-mediated disease, paraprotein deposition disease, acute tubular necrosis and acute interstitial nephritis [id number] chronic changes of the parenchyma, including: - [...] report for full kidney biopsy diagnosis from [facility], [place], [place]) 04/10/2025 10:30 AM EDT [facility] [place] [place] ([facility]) [facility] Addendum electronically signed by Mckinley Chavez MD on 04/02/2025 at 11:30 AM Final Diagnosis Kidney, left-biopsies for light, immunofluorescence and electron microscopy: -Submitted to [place], [place]. -See addendum report 04/10/2025 10:30 AM EDT [facility] Clinical Information 3 18g core samples Systemic lupus erythematosus-associ ated antiphospholipid syndrome, type II diabetes, stage 3 CKD 04/10/2025 10:30 AM EDT [facility] Gross Description A. Kidney, Left, 3 18g core samples: Labeled kidney L . Received in formalin is a 1.3 x 0.1 cm be-pink soft tissue core. Received in Phu fixative is a 1.3 x 0.1 cm be-pink soft tissue core. Received in glutaraldehyde is a 0.9 x 0.1 cm be-pink soft tissue core. The specimen is entirely submitted to [facility]. CARON 04/10/2025 10:30 AM EDT [facility] Disclaimer Unless otherwise specified, all tissue is 10% NB formalin fixed and paraffin embedded. 04/10/2025 10:30 AM EDT [facility] Tissue Left kidney structure / Unknown 03/12/2025 03/12/2025 3:19 PM EDT Noe Falk MD LAB PATHOLOGY ORDERABLES Edited Result - Final [facility] [address] [place] [address], documented in this encounter Visit Diagnoses Diagnosis Persistent proteinuria, unspecified Chronic kidney disease, stage 4 (severe) (CMS/HCC V24, CMS/HCC V28) documented in this encounter Care Teams Online Banking Specialist Relationship Specialty Start Date End Date Physician, No Pcp PCP - General 03/20/25 documented as of this encounter
--- OUTSIDE RECORDS SUMMARY | 2025-07-11 12:24 | XMS_ITS | Encounter Summary ---
Author Organization [employer] Address [address] [facility] [address] [place] [address] Care Team Providers Care Polymerization Engineer Name Role Phone Sue Alicia MD Primary Care Provider [phone] Encounter Details Date Type Department Care Team ([facility] st Contact Info) Description 09/17/2024 Orders Only [facility] [address] [place], [place] [phone] Sue Alicia MD [address] [place], [place] [phone] Bronchitis (Primary Dx) Social History Tobacco Use [...] AM EDT Office Visit [facility] [address] [place] [phone] Sue Alicia MD [address] [place] [address] 09/30/2025 10:00 AM EST Clinical Support [facility] [address] [place] [address] Cookie Alcaraz RN 11/18/2025 11:00 AM EST Office Visit [facility] [address] [place] [address] Clovre Null, OD [address] [place] [address] documented as of this encounter Visit Diagnoses Diagnosis Bronchitis- Primary Bronchitis, not specified as acute or chronic documented in this encounter Additional Health Concerns Assessment Noted Time PHQ-9 Depression Total Score: 19 024 2:37 PM EDT documented as of this encounter Care Teams Polymerization Engineer Relationship Specialty Start Date End Date Sue Alicia MD [address] [place] [phone] PCP - General Family Medicine 08/09/23 documented as of this encounter
--- OUTSIDE RECORDS SUMMARY | 2025-07-11 12:24 | XMS_ITS | Encounter Summary ---
Author Organization [employer] [facility] Address [address] [place] [address] 7 [place] [address] Care Team Providers Care Washing And Screening Plant Supervisor Name Role Phone Miranda Ramirez Primary Care Provider Sera Sue Garcia MD Primary Care Provider [phone] Reason for Visit * Reason Comments Med Refill Encounter Details Date Type Department Care Team (Late Contact Info) Description 07/21/2023 Refill [facility] [address] [place], [place] [phone] Miranda Ramirez FNP Hypothyroidism, unspecified type Social History Tobacco Use [...] Description 07/30/2025 11:30 AM EDT Office Visit [facility] [address] [place], [place] [phone] Sue Alicia MD [address] [place], [place] [phone] 09/30/2025 10:00 AM EST Clinical Support [facility] [address] [place], [place] [phone] Cookie Alcaraz, ABHIJIT 11/18/2025 11:00 AM EST Office Visit [facility] [address] [place], [place] [phone] Clover Null, OD [address] [place] [address] documented as of this encounter Visit Diagnoses Diagnosis Hypothyroidism, unspecified type documented in this encounter Additional Health Concerns Assessment Noted Time PHQ-9 Depression Total Score: 0 02/26/20 9:24 AM EDT documented as of this encounter Care Teams Washing And Screening Plant Supervisor Relationship Specialty Start Date End Date Miranda Ramirez FNP PCP - General Family Medicine 12/01/22 08/08/23 Sue Alicia MD [address] [place] [address] PCP - General Family Medicine 08/09/23 documented as of this encounter
--- OUTSIDE RECORDS SUMMARY | 2025-07-11 12:24 | XMS_ITS | Encounter Summary ---
Author Organization [employer] [facility] Address [address] [place] [address] 7t [place] [address] Care Team Providers Care Vessel Traffic Officer Name Role Phone Miranda Ramirez Primary Care Provider Sera Sue Garcia MD Primary Care Provider [phone] Reason for Visit * Reason Comments Med Refill Encounter Details Date Type Department Care Team (Late Contact Info) Description 07/25/2023 Refill [facility] [address] [place], [place] [phone] Miranda Ramirez FNP Shortness of breath Social [...] 07/30/2025 11:30 AM EDT Office Visit [facility] [address] [place], [place] [phone] Sue Alicia MD [address] [place], [place] [phone] 09/30/2025 10:00 AM EST Clinical Support [facility] [address] [place], [place] [phone] Cookie Alcaraz, RN 11/18/2025 11:00 AM EST Office Visit [facility] [address] [place], [place] [phone] Clover Null, OD [address] [place] [address] documented as of this encounter Visit Diagnoses Diagnosis Shortness of breath documented in this encounter Additional Health Concerns Assessment Noted Time PHQ-9 Depression Total Score: 0 02/26/20 9:24 AM EDT documented as of this encounter Care Teams Vessel Traffic Officer Relationship Specialty Start Date End Date Miranda Ramirez FNP PCP - General Family Medicine 12/01/22 08/08/23 Sue Alicia MD [address] [place] [address] PCP - General Family Medicine 08/09/23 documented as of this encounter
--- OUTSIDE RECORDS SUMMARY | 2025-07-11 12:24 | XMS_ITS | Encounter Summary ---
Author Organization [employer] Address [address] [place] [address] 7t [place] [address] Care Team Providers Care Filler In Name Role Phone Miranda Ramirez Primary Care Provider Sue Flores MD Primary Care Provider [phone] Reason for Visit * Reason Comments Med Refill Encounter Details Date Type Department Care Team ([facility] st Contact Info) Description 08/01/2023 Refill [facility] [address] [place] [address] Miranda Ramirez FNP Social History Tobacco Use Types Packs/Day Years [...] Description 07/30/2025 11:30 AM EDT Office Visit [facility] [address] [place] [address] Sue Alicia MD [address] [place] [address] 09/30/2025 10:00 AM EST Clinical Support [facility] [address] [place] [address] Cookie Alcaraz, ABHIJIT 11/18/2025 11:00 AM EST Office Visit [facility] [address] [place], [place] [phone] Clover Null, LINDA [address] [place] [address] documented as of this encounter Visit Diagnoses Not on filedocumented in this encounter Additional Health Concerns Assessment Noted Time PHQ-9 Depression Total Score: 0 02/26/20 9:24 AM EDT documented as of this encounter Care Teams Filler In Relationship Specialty Start Date End Date Miranda Ramirez FNP PCP - General Family Medicine 12/01/22 08/08/23 Sue Alicia MD [address] [place], [place] [phone] PCP - General Family Medicine 08/09/23 documented as of this encounter
--- OUTSIDE RECORDS SUMMARY | 2025-07-11 12:25 | XMS_ITS | Clinical Summary ---
Author Organization [facility] Address [address] [place] [phone] Phone Care Team Providers Care Turkish Line Attendant Name Role Phone Sue Alicia MD [...] chronic 03/07/2024 Rheumatoid arthritis involving multiple sites Immunizations Immunization Administration Dates Next Due Pneumococcal [...] (ONE-TIME) 2024 MAMMOGRAM 04/23/2025 04/23/2023, 11/08/2019, 10/13/2018 INFLUENZA VACCINE (#1) 2025 SCREENING FOR DIABETES 02/07/2027 02/08/2024 Adult Td,Tdap [...] this topic Medical Devices Not on file Insurance [facility] MED[facility] PART A & B [place] & [place] PART A & [place] PART A & B [address] [place] [phone] [facility] MEDICARE PART A & B Care Teams Turkish Line Attendant Relationship Specialty Start Date End Date Sue Alicia MD PCP - General Family Medicine 02/09/24 Additional Source Comments The information contained in this document represents components of the legal health record. It is not the complete legal health record.[facility]
--- OUTSIDE RECORDS SUMMARY | 2025-07-11 12:25 | XMS_ITS | Encounter Summary ---
Author Organization [employer] Address [address] [place] [address] 7t [place] [address] Care Team Providers Care Aircraft Steel Fabricator Name Role Phone Sue Alicia MD Primary Care Provider [phone] Reason for Visit * Reason Comments Med Refill Encounter Details Date Type Department Care Team ([facility] st Contact Info) Description 05/01/2025 Refill [facility] [address] [place], [place] [phone] Sue Alicia MD [address] [place], [place] [phone] Type 2 diabetes mellitus with diabetic chronic kidney disease ([facility]/HCC) Social History Tobacco Use Types Packs/Day [...] the past 12 months, has t he i[employer], gas, oil or water company threatened to [...] Description 07/30/2025 11:30 AM EDT Office Visit [facility] [address] [place] [address] Sue Alicia MD [address] [place] [address] 09/30/2025 10:00 AM EST Clinical Support [facility] [address] [place] [address] Cookie Alcaraz RN 11/18/2025 11:00 AM EST Office Visit [facility] [address] [place] [address] Clover Null OD [address] [place] [address] documented as of this encounter Visit Diagnoses Diagnosis Type 2 diabetes mellitus with diabetic chronic kidney disease (CMS/HCC) documented in this encounter Additional Health Concerns Assessment Noted Time PHQ-9 Depression Total Score: 14 025 11:22 AM EDT documented as of this encounter Care Teams Aircraft Steel Fabricator Relationship Specialty Start Date End Date Sue Alicia MD [address] [place] [address] PCP - General Family Medicine 08/09/23 documented as of this encounter
--- OUTSIDE RECORDS SUMMARY | 2025-07-11 12:25 | XMS_ITS | Encounter Summary ---
Author Organization [employer] Address [address] 7t [place] [address] Care Team Providers Care Entry Level Installation Technician Name Role Phone Sue Alicia MD Primary Care Provider [phone] Encounter Details Date Type Department Care Team ([facility] st Contact Info) Description 06/03/2025 Telephone [facility] [address] [place], [place] [phone] Sue Alicia MD [address] [place] [address] Social History Tobacco Use Types Packs/Day Years [...] Description 07/30/2025 11:30 AM EDT Office Visit [facility] [address] [place] [address] Sue Alicia MD [address] [place] [address] 09/30/2025 10:00 AM EST Clinical Support [facility] [address] [place] [address] Cookie Alcaraz, ABHIJIT 11/18/2025 11:00 AM EST Office Visit [facility] [address] [place] [address] Clover Null, OD [address] [place] [address] documented as of this encounter Visit Diagnoses Not on filedocumented in this encounter Additional Health Concerns Assessment Noted Time PHQ-9 Depression Total Score: 14 025 11:22 AM EDT documented as of this encounter Care Teams Entry Level Installation Technician Relationship Specialty Start Date End Date Sue Alicia MD [address] [place] [address] PCP - General Family Medicine 08/09/23 documented as of this encounter
--- OUTSIDE RECORDS SUMMARY | 2025-07-11 12:25 | XMS_ITS | Encounter Summary ---
Author Organization [facility] Address [address] [facility] [address] [place] [address] Phone Care Team Providers Care Service Inspector Name Role Phone Sue Alicia MD Primary Care Provider Encounter Details Date Type Department Care Team ([facility] st Contact Info) Description 04/09/2025 Office Communication [facility]. [address] [facility] [address] [place] [address] Ben Cummins MD [address] [address] Social History Tobacco Use Types Packs/Day Years [...] on file documented as of this encounter Miscellaneous Notes * Telephone Encounter - Ben Cummins MD - 04/11/2025 11:49 AM EDT Pls fax copy of kidney bx path report ( from [facility]) to Rheum at [facility]---Dr Costa---thx * Telephone Encounter - Ben Cummins MD - 04/09/2025 10:03 AM EDT Please print the kidney Bx report as I can't readi t from the media as the quality is so poor--thx documented in this encounter Plan of Treatment Upcoming Encounters Date Type Department Care Team (Late st Contact Info) Description 07/11/2025 4:00 PM EDT [facility] Visit [facility] [address] [facility] [place] [address] Ben Cummins MD [address] [address] documented as of this encounter Visit Diagnoses Not on filedocumented in this encounter Care Teams Service Inspector Relationship Specialty Start Date End Date Sue Alicia MD [address] [place] [address] PCP - General Cheese Tester 05/14/25 documented as of this encounter
[2025-07-11 13:05] LABS: Microalbum/Creatinine Ratio Ur 30.2 ug/mg cr (<30); Total Protein Urine Random < 7 mg/dL (<12)
== END 2025-07-11 10:10 | disposition home or self-care (01) ==
LOC: HO.LAB 10:09
PROVIDERS: PCP General Practice; Visit Provider Internal Medicine Nephrology
DX: I12.9 Hypertensive chronic kidney disease with stage 1 through stage 4 chronic kidney disease, or unspecified chronic kidney disease (principal); N18.32 Chronic kidney disease, stage 3b; N17.9 Acute kidney failure, unspecified
CPT/HCPCS: 36415; 80051; 82043; 82310; 82565; 82570; 83970; 84156; 84520; 85025

== ENCOUNTER 2025-09-03 10:37 | Outpatient (AMB) | payer MEDICARE, MEDICAID, SELFPAY ==
--- OUTSIDE RECORDS SUMMARY | 2025-07-16 09:40 | XMS_ITS ---
Author Organization [facility] Address [address] [place] [address] Care Team Providers Care Destaticizer Feeder Name Role Phone Ravin Waldron, Sue Primary Care Provider Isael Camacho [phone] REASON FOR VISIT Patient presents today for GASTRIC ULCER Encounters Encounter Location Date Provider Diagnosis [facility] [address] [facility] [address] [place] [address] 07/16/2025 Isael David Plan Of Treatment Next Appt Details Provider Name:Isael David , 01/02/2026 09:00:00 AM, [address], [address], [place], [address], Progress Notes * PRITI MELGARTIMBOB:1960 (65 yo F)Acc No.[id number]:07/16/2025 Progress Notes Patient: CHERIE HAQ Provider: Kimani David MD :1960 A ge:64 Y S ex:Female Date:07/16/2025 Address:[address] [place] [address] , [place], [place] Pcp:Sue Alicia M.D. Subjective: * Chief Complaints: * 1 . Patient presents today for GASTRIC ULCER. * Medical History: Objective: * Vitals: Assessment: Plan: * Treatment: * * The named appointment provid er may or may not be the originator of this progress note, and it is not deemed complete until electronically signed by the appointment provider. Sign off status: Pending * Provider: Kimani David MD Date: 0 07/16/2025 Generated for Vicki arroyo/Dandy/Bal on: 1 11/03/2024 12:31 PM EST
--- NOTE | 2025-09-03 10:38 | MHC.OFFVIS ---
Vital Signs 09/03/25 10:48 Height 5 ft 2 in Weight 159 lb 2.78 oz BMI 29.1 BP 118/64 Blood Pressure Location Lt brachial Position Sitting Pulse 66 Pulse Source Pulse Oximeter Pulse Oximetry (%) 98 Oxygen Delivery Method Room Air Intake Visit Reasons: follow up Intake Note: Patient presents for UCTD and Fibromyalgia follow up. Science Education Professor Required: Yes Science Education Professor Language: Marine Safety Officer Services: Science Education Professor Offered & Declined Science Education Professor Name: Ever Vincent Information Interpreted: non-clinical & clinical Color Control Supervisor: Color Control Supervisor Present (Ever Kaur) Accompanied by: Son Allergies aspirin (ASA) Allergy (Intermediate, Verified 09/03/25 10:46) ITCHY, HOT, AND HEADACHE calcium Allergy (Intermediate, Verified 09/03/25 10:46) Vomiting Penicillins Allergy (Intermediate, Verified 09/03/25 10:46) RASH tofacitinib (Xeljanz) Allergy (Intermediate, Verified 09/03/25 10:46) chest pain, headaches sulfasalazine Allergy (Unknown, Verified 09/03/25 10:46) unknown Medication List - Last Reconciled 09/03/25 by Samantha Costa MD albuterol sulfate 90 mcg/actuation (Ventolin HFA) 2 puffs inhalation Q6H PRN albuterol sulfate 1.25 mg (3 mL) inhalation Q4-6H PRN 30 days allopurinol 200 mg PO BEDTIME alpha lipoic acid 600 mg PO DAILY atorvastatin 20 mg PO DAILY blood sugar diagnostic (FreeStyle Lite Strips) As directed blood-glucose meter (FreeStyle [place] Lite kit) As directed cane As directed cholecalciferol (vitamin D3) 50 mcg PO DAILY cyclobenzaprine 5 mg PO BEDTIME famotidine 20 mg PO DAILY furosemide 40 mg PO BID gabapentin 900 mg (3 x 300 mg) PO BEDTIME 30 days hydroxychloroquine (Plaquenil) 200 mg PO BID irbesartan 75 mg PO DAILY levothyroxine 75 mcg PO DAILY@0600 metoprolol tartrate 25 mg PO BID omeprazole 40 mg PO DAILY pen needle, diabetic (Pentips Pen Needle) USE 1 DAILY WITH VICTOZA polyethylene glycol 3350 (Miralax) 17 grams PO DAILY prednisone 2.5 mg (1/2 x 5 mg) PO DAILY 90 days semaglutide (Ozempic) 0.5 mg subcut VIEIRA HPI Comments Details: Patient is a 65 y.o. female with asthma, hypothyroidism, hyperlipidemia, uncontrolled type 2 diabetes, primary hyperparathyroidism status post parathyroidectomy, degenerative disc disease involving the lumbar and cervical spine, seronegative rheumatoid arthritis/undifferentiated connective tissue disease here today for follow up Interval History: Patient last seen 03/06/2025 with me - On plaquenil 400mg daily and gabapentin 900mg at bedtime, prednisone 5mg daily - Planning to undergo kidney biopsy 03/12 at [facility] - Complaining of small macular rashes all over her body. Rashes unrelated to UCTD no changes made to medications - Patient did not want to decrease her prednisone dose Today - On plaquenil 400mg daily and gabapentin 900mg at bedtime, prednisone 5mg daily - Had ex lap 04/11/25 for perforated viscous and gastic hematoma - biopsy did not show active lupus - New rash on legs Rheumatologic History: Patient states that she presented in the with joint pain, rash and was diagnosed with lupus by a physician in [place]. She was started on prednisone and medication. 1st notes seen in the [facility] is from 08/21/2020 at that time she was on leflunomide and prednisone for seronegative inflammatory arthritis/seronegative RA. There were concerns brought in by patient that she has lupus however repeat serologies done here were unremarkable at that time. She then followed up with Dr. Carrillo 03/22/2022 hand that that time the leflunomide was stopped as it was unlikely that she was taking it and she was considered to be in stable condition. She then followed up with us about 2 years later with Jolly Quinonez 11/23/2023. During that visit she stated that she initially saw a doctor [place] in 2012 at that time there was a positive PHYLLIS and positive CYANIDE CASE HARDENER and he thought she had lupus/undifferentiated connective tissue disease and her symptoms were initially controlled by prednisone. During that October visit she did not recall previously being on hydroxychloroquine, methotrexate, azathioprine, Benlysta or any other medications that are considered steroid sparing for lupus. She has also seen Dr. Reyes and Dr. Zepeda in the past but those records are not currently available. During that October visit Jolly Quinonez thought that she was having a flare of her underlying autoimmune disease and restarted her on leflunomide 10 mg At some point it was thought that the leflunomide was not enough and she was started on Humira Medication History: Xeljanz 2019 for 2-3 doses: stopped due to nausea, headaches and chest pain after 2 doses Actemra ?duration: stopped due to elevated BP Kevzara (Sarilumab): stopped 2/2 extreme fatigue and subjective fluid retention Sulfasalazine: stopped 2/2 GI issues Plaquenil: Stopped 2/2 side effects Leflunomide: 2020 - 2021. Stopped since patient thought to be in remission and she was unlikely taking same Humira started 12/2023 - stopped 07/2024 Plaquenil restarted 07/2024 ex lap 04/11/25 for perforated viscous and gastic hematoma Current Rheumatology Medications: Plaquenil 400mg daily Gabapentin 900 mg bedtime PFSH Medical History (Updated 09/03/25 @ 11:27 by Samantha Costa MD) Pneumoperitoneum Undifferentiated connective tissue disease Lipoma On allopurinol therapy Gout Breast calcification, right Positive PHYLLIS (antinuclear antibody) Fibromyalgia History of primary hyperparathyroidism Osteopenia Dyslipidemia Hypothyroidism LONA on CPAP Bronchial asthma Epidermal inclusion cyst Morbid obesity Gout of right foot PHYLLIS positive Diabetes type 2, uncontrolled Surgical History (Updated 04/26/25 @ 16:59 by Malaika Nunez Thuan) S/P exploratory laparotomy (04/11/25) History of surgery Hx of excision of mass History of kidney surgery S/P breast lumpectomy H/O parathyroidectomy Hx of cholecystectomy H/O tubal ligation Family History Daughter History of breast cancer Father Cirrhosis Diabetes Arthritis Mother Arthritis Sister Diabetes Social History (Updated 04/12/25 @ 02:28 by Nallely Alexandra POLICE SERGEANT [facility] Household Members: Children Housing: Apartment Alcohol intake: never Patient Tobacco Use Status: Former Tobacco user Tobacco use type: Cigarette Substance Use Type: Marijuana service: No Female Reproductive History Menstrual Age of Menarche: 11 Review of Systems Narrative Review of Systems Constitutional: Denies fever, chills, weight loss ENT: Denies vision changes, eye pain or eye redness, dental caries, dry mouth GI: Denies nausea, vomiting, diarrhea, abdominal pain, change in BM Pulm: Denies SOB, PEREZ, hemoptysis, wheezing Cards: Denies chest pain, palpitations Skin: Denies Raynaud's, nail changes, photosensitivity, DIGITAL TRAFFIC COORDINATOR: Denies headaches, weakness, paresthesias, recurrent falls MSK: as per HPI All other systems reviewed and are unremarkable except noted above Physical Exam Exam Exam: Vital signs reviewed Physical Examination CONSTITUITIONAL Patient alert and cooperative. Well appearing and in no apparent painful distress MSK Hands Right Hand: Able to make a fist. No swelling or tenderness to palpation of the MCPs, PIPs or DIPs. Trigger finger of the middle finger Left Hand: Able to make a fist. No swelling or tenderness to palpation of the MCPs, PIPs or DIPs. Wrists Right Wrist: Full ROM to flexion and extension. No swelling or TTP Left Wrist: Full ROM to flexion and extension. No swelling or TTP Elbows Right Elbow: Full ROM. No swelling or TTP. No TTP of the medial epicondyle. No TTP of the lateral epicondyle Left Elbow: Full ROM. No swelling or TTP. No TTP of the medial epicondyle. No TTP of the lateral epicondyle Shoulders Right shoulder: Full ROM. No swelling noted. No TTP of the AC joint. No TTP of the subacromial bursa. No TTP of the posterior shoulder Left shoulder: Full ROM. No swelling noted. No TTP of the AC joint. No TTP of the subacromial bursa. No TTP of the posterior shoulder Knees Right knee: Full ROM. No swelling noted. No TTP of the knee joint line. No TTP of pes anserine bursa Left knee: Full ROM. No swelling noted. No TTP of the knee joint line. No TTP of pes anserine bursa. Crepitations felt bilaterally Ankles Right ankle: Good ankle dorsiflexion and plantar flexion. No swelling. No TTP of the ankle joint Left ankle: Good ankle dorsiflexion and plantar flexion. No swelling. No TTP of the ankle joint Feet Right foot: Negative squeeze test Left foot: Negative squeeze test Tender points? Tenderness to palpation of the bilateral trapezius, supraspinatus, anterior costochondral junctions, bilateral suboccipital muscle insertions SKIN Non blanching erythema with discrete nodules on the lower extremity Results Reviewed Results Reviewed: Laboratory Tests 04/14/25 07/11/25 06:05 10:25 WBC 8.0 RBC 4.17 L D Hgb 11.8 L Hct 37.9 D Plt Count 323 D Sodium 143 Potassium 5.0 D Chloride 107 Carbon Dioxide 29 BUN 23 H Creatinine 1.28 1.45 H Laboratory Tests 11/23/23 04/11/24 15:12 15:34 PHYLLIS Screen POSITIVE A PHYLLIS Titer 1:1280 H SS-A/Ro Antibody <1.0 NEG SS-B/La Antibody <1.0 NEG Sm (Wills) Antibody <1.0 NEG SM/CYANIDE CASE HARDENER IgG Antibody <1.0 NEG Double Strand DNA Ab <1 Centromere B Antibody <1.0 NEG Complement C3 78 L Complement C4 18 Assessment & Plan Assessment & Plan (1) Undifferentiated connective tissue disease: Comment: Xeljanz 2019 for 2-3 doses: stopped due to nausea, headaches and chest pain after 2 doses Actemra ?duration: stopped due to elevated BP Kevzara (Sarilumab): stopped 2/2 extreme fatigue and subjective fluid retention Sulfasalazine: stopped 2/2 GI issues Plaquenil: Stopped 2/2 side effects Leflunomide: 2020 - 2021. Stopped since patient thought to be in remission and she was unlikely taking same Humira started 12/2023 - stopped 07/2024 Plaquenil restarted 07/2024 ex lap 04/11/25 for perforated viscous and gastic hematoma Code(s): M35.9 - Systemic involvement of connective tissue, unspecified Category: Medical Plan: #UCTD Patient is a 65-year-old female with undifferentiated connective tissue disease patient here for follow up. Labs stable No evidence of active lupus at this time Rash could be related to her lupus/undifferentiated connective tissue disease Had a very long discussion with patient about prednisone use in the setting of her viscus perforation. She is concerned about the numbness and tingling that she experiences to her hands and feet which prednisone helps with. Gabapentin is helpful. Plan - Hydroxychloroquine 200mg bid - decrease prednisone to 2.5 mg - start alpha lipoic acid 600 mg daily - derm referral f/u - RTC 4 months - Labs before visit: CBC, CMP, ESR, CRP, C3, C4, dsDNA, UA, UPC (2) Fibromyalgia: Code(s): M79.7 - Fibromyalgia Category: Medical Plan: #Fibromyalgia Patient definitely has fibromyalgia complicating her underlying disease. She has several fibromyalgia tender points on examination. Currently on gabapentin 900 mg at night and we will continue this. Plan - Gabapentin 900mg nightly - Flexeril 5mg nightly (3) Gout: Code(s): M10.9 - Gout, unspecified Category: Medical Qualifiers: Gout site: unspecified site Gout etiology: idiopathic Chronicity: chronic Presence of tophus: without tophus Qualified Code(s): M1A.00X0 - Idiopathic chronic gout, unspecified site, without tophus (tophi) Plan: #Gout Currently stable on allopurinol therapy. No recent flares UA at goal (4) Osteopenia: Comment: DEXA 2021. AP Spine -0.2, Left femur neck -1.8, Left femur total 0.1. FRAX 10.8/1.6 DEXA 2023: AP Spine -0.4, Left femur neck -2.0, Left femur total -0.5. FRAX 12.7/2.5 Code(s): M85.80 - Other specified disorders of bone density and structure, unspecified site Category: Medical Qualifiers: Osteopenia location: multiple sites Qualified Code(s): M85.89 - Other specified disorders of bone density and structure, multiple sites Plan: #Osteopenia Patient with osteopenia based on 2023 DEXA scan. FRAX index not indicative of treatment at this time. Continue vitamin-D supplementation (5) On allopurinol therapy: Code(s): Z79.899 - Other extermination supervisor (current) drug therapy Category: Medical Plan: #Long-term Current Use of Allopurinol Risks and benefits of allopurinol discussed with patient Benefits include decreased gout flares, remission of gout and reduction of tophi Risks include allopurinol hypersensitivity syndrome which is a severe cutaneous adverse reaction associated with allopurinol use particularly in patients who are HLA B*5801 positive, increased transaminases, GI upset including diarrhea, nausea and vomiting, and other dermatologic manifestations. (6) FDC systemic steroid user: Code(s): Z79.52 - watermelon inspector (current) use of systemic steroids Category: Medical Plan: #Long-term Use of Steroids Discussed with patient the risks and benefits of steroid for managing the rheumatic condition Benefits include: - Reduced pain, improved mobility, increased participation in activities, and decreased progression of disease Risks include: - GI upset, potential ultrasound worsening or formation (especially in patients > 65 years old), elevated blood pressure/worsening hypertension, elevated blood sugar/worsening diabetes control, worsening of bone density, elevated lipids/worsening triglycerides, cataract formation, weight gain Recommended using proton pump inhibitors (PPIs) for the duration of steroid use to reduce the risk of gastric ulcers and vitamin-D daily to reduce the risk of osteoporosis Labs checked: ?A1c, T spot, hepatitis-B and C serologies Pneumocystis jiroveci prophylaxis: ?Patient with risk factors including steroids greater than 50 mg for more than 30 days, age greater than 60 years, and lung involvement from underlying rheumatic disease requires prophylaxis and will be given so (7) Encounter for monitoring of hydroxychloroquine therapy: Code(s): Z51.81 - Encounter for therapeutic drug level monitoring; Z79.899 - Other extermination supervisor (current) drug therapy Plan: #Long-term Use of Hydroxychloroquine Discussed with patient the risks and benefits of hydroxychloroquine in managing the rheumatic condition Benefits include: - Reduced pain, reduce mortality, maintenance of remission and reduction of flares Risks include: - GI upset, skin hyperpigmentation, retinal toxicity (especially after more than 5 years of use), myopathy Advised yearly ophthalmology visits Plan I spent 45 minutes reviewing the record and labs, taking a history, examining the patient, discussing the treatment plan, explaining the importance of decreasing prednisone, ordering diagnostic work up and documenting in the medical record Orders: Orders Complete Blood Count Auto Diff 4 Months . - Systemic lupus erythematosus, unspecified Erythrocyte Sedimentation Rate 4 Months . - Systemic lupus erythematosus, unspecified Protein Creatinine Ratio, Ur 4 Months . - Systemic lupus erythematosus, unspecified UA ClnCatch+Micro w/rflx Cult 4 Months . - Systemic lupus erythematosus, unspecified C Reactive Protein 4 Months . - Systemic lupus erythematosus, unspecified Alanine Aminotransferase 4 Months . - Systemic lupus erythematosus, unspecified Complement C3 4 Months . - Systemic lupus erythematosus, unspecified Aspartate Amino Transferase 4 Months . - Systemic lupus erythematosus, unspecified Complement C4 4 Months . - Systemic lupus erythematosus, unspecified Creatinine 4 Months . - Systemic lupus erythematosus, unspecified Anti DNA DS Antibody 4 Months . - Systemic lupus erythematosus, unspecified Medications: New alpha lipoic acid 600 mg PO DAILY 90 tabs 1RF M79.7 - Fibromyalgia Changed From prednisone 5 mg PO DAILY 90 days 90 tabs 1RF M06.00 - Rheumatoid arthritis without rheumatoid factor, unspecified site, Z79.52 - FDC (current) use of systemic steroids To prednisone 2.5 mg (1/2 x 5 mg) PO DAILY 45 tabs 1RF 90 days M06.00 - Rheumatoid arthritis without rheumatoid factor, unspecified site, Z79.52 - watermelon inspector (current) use of systemic steroids Refilled gabapentin 900 mg (3 x 300 mg) PO BEDTIME 90 caps 5RF 30 days M79.7 - Fibromyalgia cyclobenzaprine 5 mg PO BEDTIME 90 tabs 1RF M79.7 - Fibromyalgia hydroxychloroquine (Plaquenil) 200 mg PO BID 180 tabs 1RF M35.9 - Systemic involvement of connective tissue, unspecified Coding Level of Care Code Est Pt Level 5 (39917) Complex EM visit Add On G2211 Diagnoses Undifferentiated connective tissue disease M35.9 Fibromyalgia M79.7 Idiopathic chronic gout without tophus, unspecified site M1A.00X0 Gout site: unspecified site Gout etiology: idiopathic Chronicity: chronic Presence of tophus: without tophus Osteopenia of multiple sites M85.89 Osteopenia location: multiple sites On allopurinol therapy Z79.899 FDC systemic steroid user Z79.52 Encounter for monitoring of hydroxychloroquine therapy Z51.81; Z79.899
[2025-09-03 10:48] VITALS: BP 118/64; PULSE 66; O2SAT 98; BMI 29.1
--- OUTSIDE RECORDS SUMMARY | 2025-09-03 12:32 | XMS_ITS | Encounter Summary ---
Author Organization [employer] Address [address] [facility] [address] [place] [address] Care Team Providers Care Punching Machine Operator Name Role Phone Sue Alicia MD Primary Care Provider [phone] Reason for Visit * Reason Comments Med Refill Encounter Details Date Type Department Care Team ([facility] st Contact Info) Description 04/11/2024 Refill [facility] [address] [place] [address] Sue Alicia MD [address] [place] [address] Shortness of breath Social History Tobacco Use [...] Care Team (Late st Contact Info) Description 09/30/2025 10:00 AM EST Clinical Support [facility] MEDICINE [address] [place] [address] Cookie Alcaraz RN 10/09/2025 3:00 PM EST Office Visit [facility] MEDICINE [address] [place] [address] Sue Alicia MD [address] [place] [address] 12/06/2025 9:30 AM EST Office Visit [facility] OPTOMETRY [address] [place] [address] Chaka, Clover, OD [address] [place] [address] documented as of this encounter Visit Diagnoses Diagnosis Shortness of breath documented in this encounter Additional Health Concerns Assessment Noted Time PHQ-9 Depression Total Score: 19 024 2:37 PM EDT documented as of this encounter Care Teams Punching Machine Operator Relationship Specialty Start Date End Date Sue Alicia MD [address] [place] [address] PCP - General Family Medicine 08/09/23 documented as of this encounter
--- OUTSIDE RECORDS SUMMARY | 2025-09-03 12:32 | XMS_ITS | Encounter Summary ---
Author Organization [employer] Address [address] [place] [address] [address] [place] [address] Care Team Providers Care Mold Filler Name Role Phone Sue Alicia MD Primary Care Provider [phone] Reason for Visit * Reason Comments Med Refill Encounter Details Date Type Department Care Team ([facility] st Contact Info) Description 08/26/2023 Refill [facility] MEDICINE [address] [place] [address] Negrita Diaz FNP [address] [place] [address] Other chronic pain Social History Tobacco Use [...] others, in a hotel, in a senior living, living outside on the street, on a [...] Description 09/30/2025 10:00 AM EST Clinical Support [facility] MEDICINE [address] [place] [phone] Cookie Alcaraz RN 10/09/2025 3:00 PM EST Office Visit [facility] MEDICINE [address] [place] [address] Sue Alicia MD [address] [place] [address] 12/06/2025 9:30 AM EST Office Visit [facility] OPTOMETRY [address] [place] [address] Chaka, Clover, OD [address] [place] [address] documented as of this encounter Visit Diagnoses Diagnosis Other chronic pain documented in this encounter Additional Health Concerns Assessment Noted Time PHQ-9 Depression Total Score: 0 02/26/20 23 9:24 AM EDT documented as of this encounter Care Teams Mold Filler Relationship Specialty Start Date End Date Sue Alicia MD [address] [place] [id number] PCP - General Family Medicine 08/09/23 documented as of this encounter
--- OUTSIDE RECORDS SUMMARY | 2025-09-03 12:32 | XMS_ITS | Encounter Summary ---
Author Organization [employer] Address [address] [facility] [address] [place] [address] Care Team Providers Care Printer Apprentice Name Role Phone Sue Alicia MD Primary Care Provider [phone] Reason for Visit * Reason Onset Date Comments Durable Medical Equipment 02/10/2024 Walker and Wheelchair Encounter Details Date Type Department Care Team (Late st Contact Info) Description 02/10/2024 Telephone [facility] MEDICINE [address] [place] [address] Sue Alicia MD [address] [place] [address] Durable Medical Equipment (Walker and Wheelchair) Social [...] the past 12 months, has t he [employer], gas, oil or water company threatened to [...] Description 09/30/2025 10:00 AM EST Clinical Support [facility] MEDICINE [address] [place] [phone] Cookie Alcaraz RN 10/09/2025 3:00 PM EST Office Visit [facility] MEDICINE [address] [place], [place] [phone] Sue Alicia MD [address] [place] [address] 12/06/2025 9:30 AM EST Office Visit [facility] OPTOMETRY [address] [place], [place] [phone] Chaka, Clover, OD [address] [place], [place] [phone] documented as of this encounter Visit Diagnoses Not on filedocumented in this encounter Additional Health Concerns Assessment Noted Time PHQ-9 Depression Total Score: 19 024 2:37 PM EDT documented as of this encounter Care Teams Printer Apprentice Relationship Specialty Start Date End Date Sue Alicia MD [address] [place], [place] [phone] PCP - General Family Medicine 08/09/23 documented as of this encounter
--- OUTSIDE RECORDS SUMMARY | 2025-09-03 12:32 | XMS_ITS | Encounter Summary ---
Author Organization [employer] Address [address] [facility] [address] [place] [address] Care Team Providers Care Farmer Cash Grain Name Role Phone Sue Alicia MD Primary Care Provider [phone] Encounter Details Date Type Department Care Team ([facility] st Contact Info) Description 06/03/2025 Telephone [facility] [address] [place], [place] [phone] Sue Alicia MD [address] [place] [address] Social History Tobacco Use Types Packs/Day Years [...] Description 09/30/2025 10:00 AM EST Clinical Support [facility] MEDICINE [address] [place] [phone] Cookie Alcaraz RN 10/09/2025 3:00 PM EST Office Visit [facility] MEDICINE [address] [place] [phone] Sue Alicia MD [address] [place] [address] 12/06/2025 9:30 AM EST Office Visit [facility] OPTOMETRY [address] [place] [address] Clover Null, OD [address] [place] [address] documented as of this encounter Visit Diagnoses Not on filedocumented in this encounter Additional Health Concerns Assessment Noted Time PHQ-9 Depression Total Score: 14 025 11:22 AM EDT documented as of this encounter Care Teams Farmer Cash Grain Relationship Specialty Start Date End Date Sue Alicia MD [address] [place] [address] PCP - General Family Medicine 08/09/23 documented as of this encounter
--- OUTSIDE RECORDS SUMMARY | 2025-09-03 12:32 | XMS_ITS | Encounter Summary ---
Author Organization [employer] Address [address] [facility] 7t [place] [address] Care Team Providers Care Arcade Attendant Name Role Phone Sue Alicia MD Primary Care Provider [phone] Reason for Visit * Reason Onset Date [...] (Late st Contact Info) Description 02/06/2024 Telephone [facility] 230 [place], [place] [phone] Sue Alicia MD 230 [place], [place] [phone] Letter for Housing (I called to get [...] Description 09/30/2025 10:00 AM EST Clinical Support [facility] [address] [place] [phone] Cookie Alcaraz RN 10/09/2025 3:00 PM EST Office Visit [address] [address] Sue Alicia MD [address] [place] [address] 12/06/2025 9:30 AM EST Office Visit [facility] [address] [place], [place] [phone] Clover Null, OD 230 [place], [place] [phone] documented as of this encounter Visit Diagnoses Not on filedocumented in this encounter Additional Health Concerns Assessment Noted Time PHQ-9 Depression Total Score: 0 02/26/20 9:24 AM EDT documented as of this encounter Care Teams Arcade Attendant Relationship Specialty Start Date End Date Sue Alicia MD 230 [place], [place] [phone] PCP - General Family Medicine 08/09/23 documented as of this encounter
--- OUTSIDE RECORDS SUMMARY | 2025-09-03 12:32 | XMS_ITS | Encounter Summary ---
Author Organization [employer] Address [address] [facility] 7t [place] [address] Care Team Providers Care Cold Meat Cook Name Role Phone Sue Alicia MD Primary Care Provider [phone] Encounter Details Date Type Department Care Team ([facility] st Contact Info) Description 04/06/2024 Telephone [facility] 230 [place], [place] [phone] Sue Alicia MD 230 [place], [place] [phone] Social History Tobacco Use Types Packs/Day Years [...] Description 09/30/2025 10:00 AM EST Clinical Support [facility] [address] [place] [phone] Cookie Alcaraz RN 10/09/2025 3:00 PM EST Office Visit [facility] [address] [place] [address] Sue Alicia MD [address] [place] [address] 12/06/2025 9:30 AM EST Office Visit [facility] [address] [place] [address] Clover Null, OD 230 [place] [address] documented as of this encounter Visit Diagnoses Not on filedocumented in this encounter Additional Health Concerns Assessment Noted Time PHQ-9 Depression Total Score: 19 024 2:37 PM EDT documented as of this encounter Care Teams Cold Meat Cook Relationship Specialty Start Date End Date Sue Alicia MD 230 [place] [address] PCP - General Family Medicine 08/09/23 documented as of this encounter
--- OUTSIDE RECORDS SUMMARY | 2025-09-03 12:32 | XMS_ITS | Encounter Summary ---
Author Organization [employer] Address [address] [place] [address] 7 [place] [address] Care Team Providers Care Manager Rn Case Name Role Phone Sue Alicia MD Primary Care Provider [phone] Reason for Visit * Reason Onset Date Comments Med Refill 08/29/2023 Encounter Details Date Type Department Care Team ([facility] st Contact Info) Description 08/29/2023 Telephone [facility] 230 [place], [place] [phone] Sue Alicia MD 230 [place], [place] [phone] Med Refill Social History Tobacco Use Types [...] Please sent to [facility] - [place], [place] - [address] [place] [address] documented in this encounter Plan of Treatment Upcoming Encounters Date Type Department Care Team (Late st Contact Info) Description 09/30/2025 10:00 AM EST Clinical Support [facility] [address] [place] [phone] Cookie Alcaraz, RN 10/09/2025 3:00 PM EST Office Visit [facility] [address] [place] [phone] Sue Alicia MD [address] [place] [address] 12/06/2025 9:30 AM EST Office Visit [facility] [address] [place], [place] [phone] Clover Null, OD [address] [place] [address] documented as of this encounter Visit Diagnoses Not on filedocumented in this encounter Additional Health Concerns Assessment Noted Time PHQ-9 Depression Total Score: 0 02/26/20 9:24 AM EDT documented as of this encounter Care Teams Manager Rn Case Relationship Specialty Start Date End Date Sue Alicia MD 230 [place] [address] PCP - General Family Medicine 08/09/23 documented as of this encounter
--- OUTSIDE RECORDS SUMMARY | 2025-09-03 12:32 | XMS_ITS | Encounter Summary ---
Author Organization [employer] Address [address] [place] [address] 7t [place] [address] Care Team Providers Care Documentation Coordinator Name Role Phone Sue Alicia MD Primary Care Provider [phone] Reason for Visit * Reason Onset Date Comments Referral 04/02/2024 Encounter Details Date Type Department Care Team ([facility] st Contact Info) Description 04/02/2024 Telephone [facility] 230 [place], [place] [phone] Sue Alicia MD 230 [place] [address] Referral Social History Tobacco Use Types Packs/Day [...] referral : DATE: n/a TIME: n/a Address: [address] [place] [address] Visits: all year long 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: [facility] account executive software sales Type of Specialist: account executive software sales Provider : Rhea Locke MD Address: [address] [place] [address] Fax #: [phone] documented in this encounter Plan of Treatment Upcoming Encounters Date Type Department Care Team (Late st Contact Info) Description 09/30/2025 10:00 AM EST Clinical Support [facility] [address] [place] [phone] Cookie Alcaraz RN 10/09/2025 3:00 PM EST Office Visit [facility] [address] [place] [address] Sue Alicia MD [address] [place] [phone] 12/06/2025 9:30 AM EST Office Visit [facility] [address] [place] [address] Clover Null, LINDA 230 [place] [address] documented as of this encounter Visit Diagnoses Not on filedocumented in this encounter Additional Health Concerns Assessment Noted Time PHQ-9 Depression Total Score: 19 024 2:37 PM EDT documented as of this encounter Care Teams Documentation Coordinator Relationship Specialty Start Date End Date Sue Alicia MD 230 [place] [address] PCP - General Family Medicine 08/09/23 documented as of this encounter
--- OUTSIDE RECORDS SUMMARY | 2025-09-03 12:32 | XMS_ITS | Encounter Summary ---
Author Organization [employer] [facility] Address [address] [place] [address] 7t [place] [address] Care Team Providers Care Material Requirements Worker Name Role Phone Miranda Ramirez Primary Care Provider Sera Sue Garcia MD Primary Care Provider [phone] Reason for Visit * Reason Comments Med Refill Encounter Details Date Type Department Care Team (Late st Contact Info) Description 07/25/2023 Refill [facility] [address] [place] [phone] Miranda Ramirez FNP Shortness of breath Social [...] Department Care Team (Late Contact Info) Description 09/30/2025 10:00 AM EST Clinical Support [facility] [address] [place] [address] [phone] Cookie Alcaraz RN 10/09/2025 3:00 PM EST Office Visit [facility] [address] [place] [address] [phone] Sue Alicia MD 230 [place], [place] [phone] 12/06/2025 9:30 AM EST Office Visit [facility] [address] [place], [place] [phone] Chaka, Clover, OD 230 [place], [place] [phone] documented as of this encounter Visit Diagnoses Diagnosis Shortness of breath documented in this encounter Additional Health Concerns Assessment Noted Time PHQ-9 Depression Total Score: 0 02/26/20 9:24 AM EDT documented as of this encounter Care Teams Material Requirements Worker Relationship Specialty Start Date End Date Miranda Ramirez FNP PCP - General Family Medicine 12/01/22 08/08/23 Sue Alicia MD 230 [place], [place] [phone] PCP - General Family Medicine 08/09/23 documented as of this encounter
--- OUTSIDE RECORDS SUMMARY | 2025-09-03 12:32 | XMS_ITS | Encounter Summary ---
Author Organization [employer] Address [address] [place] [address] 7t [place] [address] Care Team Providers Care Rn New Graduate Name Role Phone Sue Alicia MD Primary Care Provider [phone] Reason for Visit * Reason Comments Med Refill Encounter Details Date Type Department Care Team (Late st Contact Info) Description 10/03/2024 Refill [facility] 230 [place], [place] [phone] Sue Alicia MD 230 [place], [place] [phone] Chronic low back pain, unspecified back pain [...] the past 12 months, has t he [employer] gas, oil or water company threatened to [...] Description 09/30/2025 10:00 AM EST Clinical Support [facility] 230 [place] [address] Cookie Alcaraz RN 10/09/2025 3:00 PM EST Office Visit [facility] 230 [place] [address] Sue Alicia MD 230 [place] [address] 12/06/2025 9:30 AM EST Office Visit [facility] 267 [place] [address] Chaka, Clover, OD 230 [place] [address] documented as of this encounter Visit Diagnoses Diagnosis Chronic low back pain, unspecified back pain laterality, unspecified whether sciatica present documented in this encounter Additional Health Concerns Assessment Noted Time PHQ-9 Depression Total Score: 19 024 2:37 PM EDT documented as of this encounter Care Teams Rn New Graduate Relationship Specialty Start Date End Date Sue Alicia MD 230 [place] [address] PCP - General Family Medicine 08/09/23 documented as of this encounter
--- OUTSIDE RECORDS SUMMARY | 2025-09-03 12:32 | XMS_ITS | Encounter Summary ---
Author Organization [employer] [facility] Address [address] [place] [address] 7t [place] [address] Care Team Providers Care Electrical Contractor Name Role Phone Miranda Ramirez Primary Care Provider Sera Sue Garcia MD Primary Care Provider [phone] Reason for Visit * Reason Comments Med Refill Encounter Details Date Type Department Care Team (Late st Contact Info) Description 07/26/2023 Refill [facility] [address] [place] [phone] Miranda Ramirez FNP Shortness of breath Social [...] 10:00 AM EST Clinical Support [facility] [address] [place] [address] [phone] Cookie Alcaraz RN 10/09/2025 3:00 PM EST Office Visit [facility] [address] [place] [address] [phone] Sue Alicia MD 230 [place], [place] [phone] 12/06/2025 9:30 AM EST Office Visit [facility] [address] [place], [place] [phone] Chaka, Clover, OD 230 [place], [place] [phone] documented as of this encounter Visit Diagnoses Diagnosis Shortness of breath documented in this encounter Additional Health Concerns Assessment Noted Time PHQ-9 Depression Total Score: 0 02/26/20 9:24 AM EDT documented as of this encounter Care Teams Electrical Contractor Relationship Specialty Start Date End Date Miranda Ramirez FNP PCP - General Family Medicine 12/01/22 08/08/23 Seu Alicia MD 230 [place], [place] [phone] PCP - General Family Medicine 08/09/23 documented as of this encounter
--- OUTSIDE RECORDS SUMMARY | 2025-09-03 12:32 | XMS_ITS | Encounter Summary ---
Author Organization [employer] Address [address] [place] [address] 7t [place] [address] Care Team Providers Care Structural Design Engineer Name Role Phone Sue Alicia MD Primary Care Provider [phone] Reason for Visit * Reason Onset Date Comments Call Back Request 02/20/2024 Encounter Details Date Type Department Care Team ([facility] Contact Info) Description 02/20/2024 Telephone [facility] 230 [place], [place] [phone] Sue Alicia MD 230 [place], [place] [phone] Call Back Request Social History Tobacco Use [...] Description 09/30/2025 10:00 AM EST Clinical Support [facility] 230 [place] [address] Cookie Alcaraz RN 10/09/2025 3:00 PM EST Office Visit [facility] 230 [place] [address] Sue Alicia MD 230 [place] [address] 12/06/2025 9:30 AM EST Office Visit [facility] 267 [place] [address] Clover Null, LINDA 230 [place] [address] documented as of this encounter Visit Diagnoses Not on filedocumented in this encounter Additional Health Concerns Assessment Noted Time PHQ-9 Depression Total Score: 19 024 2:37 PM EDT documented as of this encounter Care Teams Structural Design Engineer Relationship Specialty Start Date End Date Sue Alicia MD 230 [place] [address] PCP - General Family Medicine 08/09/23 documented as of this encounter
--- OUTSIDE RECORDS SUMMARY | 2025-09-03 12:32 | XMS_ITS | Encounter Summary ---
Author Organization [employer] Address [address] [facility] 7t [place] [address] Care Team Providers Care Single Wire Saw Operator Name Role Phone Sue Alicia MD Primary Care Provider [phone] Encounter Details Date Type Department Care Team ([facility] st Contact Info) Description 03/18/2025 Orders Only [facility] 230 [place], [place] [phone] Sue Alicia MD 230 [place], [place] [phone] Social History Tobacco Use Types Packs/Day Years [...] Description 09/30/2025 10:00 AM EST Clinical Support [facility] 230 [place] [address] Cookie Alcaraz RN 10/09/2025 3:00 PM EST Office Visit [facility] 230 [place] [address] Sue Alicia MD 230 [place] [address] 12/06/2025 9:30 AM EST Office Visit [facility] 267 [place] [address] Clover Null, LINDA 230 [place] [address] documented as of this encounter Procedures Procedure [...] documented as of this encounter Care Teams Single Wire Saw Operator Relationship Specialty Start Date End Date Sue Alicia MD 230 [place] [address] PCP - General Family Medicine 08/09/23 documented as of this encounter
--- OUTSIDE RECORDS SUMMARY | 2025-09-03 12:32 | XMS_ITS | Encounter Summary ---
Author Organization [employer] Address [address] [facility] 7t [place] [address] Care Team Providers Care Multigraph Operator Name Role Phone Sue Alicia MD Primary Care Provider [phone] Encounter Details Date Type Department Care Team ([facility] st Contact Info) Description 11/22/2023 Orders Only [facility] 230 [place], [place] [phone] Sue Alicia MD 230 [place], [place] [phone] Social History Tobacco Use Types Packs/Day Years [...] with others, in a hotel, in a mcfp, living outside on the street, on a [...] Description 09/30/2025 10:00 AM EST Clinical Support [facility] [address] [place] [phone] Cookie Alcaraz RN 10/09/2025 3:00 PM EST Office Visit [facility] [address] [place] [phone] Sue Alicia MD 230 [place] [address] 12/06/2025 9:30 AM EST Office Visit [facility] [address] [place] [address] Chaka, Clover, OD 230 [place] [address] documented as of this encounter Visit Diagnoses Not on filedocumented in this encounter Additional Health Concerns Assessment Noted Time PHQ-9 Depression Total Score: 0 02/26/20 23 9:24 AM EDT documented as of this encounter Care Teams Multigraph Operator Relationship Specialty Start Date End Date Sue Alicia MD [address] [place] [address] PCP - General Family Medicine 08/09/23 documented as of this encounter
--- OUTSIDE RECORDS SUMMARY | 2025-09-03 12:32 | XMS_ITS | Patient Health Record ---
Author Organization [facility] Address [address] [place] [address] Care Team Providers Care Almond Blancher Hand Name Role Phone Sue Alicia M.D. Primary Care Provider Isael Camacho Unavailable [phone] Allergies Allergen (clinical drug ingredient) Drug/Non Drug [...] 5 MG 4 as directed Orally as directed; Duration: 1 days 03/31/2016 Active Cyclobenzaprine HCl 10 MG 1 tablet Orall y once a day Active MiraLax 1 as directed Orally a s directed; Duration: 1 days 03/31/2016 Active PriLOSEC OTC 20 MG 2 tablets Orally Onc e a day Active Problems Problem Type SNOMED Code ICD Code Onset Dates Problem Status W/U Status Risk Notes Problem Screening for malignant neoplasm of colon (915276718) Encounter for screening for malignant neoplasm of colon (Z12.11) Active confirmed Problem Screening for malignant neoplasm of rectum (225131056) Encounter for screening for malignant neoplasm of rectum (Z12.12) Active confirmed Problem Gastroesophageal reflux disease without esophagitis (167200596) Gastroesophageal reflux disease without esophagitis (K21.9) Active confirmed Problem History of polyp of colon (situation) (063636474) History of colon polyps (Z86.010) Active confirmed Problem Constipation (01690810) Constipation, unspecified constipation type (K59.00) Active confirmed Encounters Encounter Location Date Provider Diagnosis [facility] [address] [place] [address] 07/16/2025 Isael David Plan Of Treatment Future Test Test Name Order Date COLONOSCOPY 03/31/2016 Next Appt Details Provider Name:Isael David , 01/02/2026 09:00:00 AM, [address], [address], [place], [address], Insurance Providers Payer Name Payer Address Payer Phone Subscriber Number Group Number Insured Name Patient Relationship to Insured Coverage Start Date Coverage End Date MEDICARE OF [place] [address] [place] [address] [id number] CHERIE MELGAR Self - patient is the insured MEDICAID OF [facility] [address] [place] [address] [id number] CHERIE MELGAR Self - patient is the insured Medical (General) History Medical History History ICD Code Colonoscopy 05/2011--negative for polyps--mild sigmoid diverticulosis and small int. hemorrhoids GERD-EGD in 05/2011--small HH--no esophag itis Colon polyps removed in 2005 at [facility] --but not recovered for pathology--they looked adenomatous according to the colonoscopy report Depression Hypertension Renal artery stenosis--s/p angioplasty IDDM Sleep apnea--uses CPAP Denies [place],CVA,Lung disease,renal disease Lupus Fibromyalgia Arthritis Surgical History Surgery Date(Month/Year) Lap CCY BTL Parathyroidectomy Right breast biopsy--benign
--- OUTSIDE RECORDS SUMMARY | 2025-09-03 12:32 | XMS_ITS | Encounter Summary ---
Author Organization [employer] Address [address] [place] [address] 7t [place] [address] Care Team Providers Care Regulatory Affairs Director Name Role Phone Miranda Ramirez Primary Care Provider Sue Flores MD Primary Care Provider [phone] Reason for Visit * Reason Comments Med Refill Encounter Details Date Type Department Care Team ([facility] st Contact Info) Description 08/01/2023 Refill [facility] 230 [place] [address] Miranda Ramirez FNP Social History Tobacco Use [...] Description 09/30/2025 10:00 AM EST Clinical Support [facility] 230 [place] [address] Cookie Alcaraz, RN 10/09/2025 3:00 PM EST Office Visit [facility] 230 [place] [address] Sue Alicia MD 230 [place] [address] 12/06/2025 9:30 AM EST Office Visit [facility] [address] [place], [place] [phone] Clover Null, OD 230 [place] [address] documented as of this encounter Visit Diagnoses Not on filedocumented in this encounter Additional Health Concerns Assessment Noted Time PHQ-9 Depression Total Score: 0 02/26/20 9:24 AM EDT documented as of this encounter Care Teams Regulatory Affairs Director Relationship Specialty Start Date End Date Miranda Ramirez FNP PCP - General Family Medicine 12/01/22 08/08/23 Sue Alicia MD 230 [place], [place] [phone] PCP - General Family Medicine 08/09/23 documented as of this encounter
--- OUTSIDE RECORDS SUMMARY | 2025-09-03 12:32 | XMS_ITS | Clinical Summary ---
Author Organization [email or web address] Address [address] [place] [address] 7t [place] [address] Care Team Providers Care Greenskeeper Name Role Phone Sue Alicia MD Primary Care Provider [phone] Allergies Active Allergy Reactions Criticality Noted Date Comments Aspirin Rash,Headache Medium 09/27/2022 Calcium Headache,Nausea,Vomiting High 03/03/2023 Doxycycline 03/15/2022 Other reaction(s): pt. unsure Other reaction(s): pt. unsure Iodixanol Rash Low 03/15/2022 Penicillins Rash,Headache Medium 09/27/2022 Sulfasalazine 03/03/2023 Other Reaction(s): unknown Tofacitinib High 03/03/2023 Other Reaction(s): chest pain, headaches Medications Pentips 32G X 4 MM misc USE 1 DAILY WITH VICTOZA Active albuterol (Ventolin HFA) 108 (90 Base) MCG/ACT inhalerIndicati ons:Shortness of breath Inhale 2 puffs every 6 (six) hours if needed for wheezing. 18 g 11 Active glucose blood (FREESTYLE LITE) test stripIndication [...] MOUTH EVERY MORNING 30 tablet 3 Active TRUEplus Lancets 33G misc Apply 1 each topically Once per day. TEST BLOOD SUGAR ONCE DAILY DIRECTED 100 each Active Yuflyma, 1 Pen, 40 MG/0.4ML Auto-injector Kit INJECT 40 MG (0.4 ML) SUBCUTANEOUSLY EVERY 2 WEEKS Active cholecalciferol (Vitamin D-3) 1.25 MG (89439 UT) capsule Take 1 capsule by mouth every 7 (seven) days. Active empagliflozin (Jardiance) 10 MGIndications:T ype 2 diabetes mellitus with stage 2 chronic kidney disease, without long-term current use of insulin (HCC) Take 1 tablet (10 mg) by mouth Once per day. 30 tablet 025 2025 Active cyclobenzaprine (Flexeril) 5 MG tabletIndicatio ns:Chronic low back pain, unspecified back pain laterality, unspecified whether sciatica present TAKE 1 TABLET BY MOUTH THREE TIMES DAILY IN THE MORNING, AT NOON, AND AT BEDTIME NEEDED FOR MUSCLE SPASMS 90 tablet 3 Active Metamucil 4 in 1 Fiber 55.6 % powder Take 1 Scoop by mouth Once per day. 660 g 1 Active metoprolol tartrate (Lopressor) 25 MG tabletIndicatio ns:Primary hypertension Take 1 tablet (25 mg) by mouth 2 times daily. 60 tablet Active atorvastatin (Lipitor) 40 MG tabletIndicatio ns:Type 2 diabetes mellitus with stage 2 chronic kidney disease, without long-term current use of insulin (HCC) Take 1 tablet (40 mg) by mouth Once per day. 30 tablet 025 2025 Active omeprazole (PriLOSEC) [address] capsuleIndicati ons:Gastroesoph ageal reflux disease, unspecified whether esophagitis present Take 1 capsule (40 mg) by mouth before breakfast. Do not crush or chew. 90 capsule 3 025 Active valsartan (Diovan) 80 MG tablet Take 80 mg by mouth in the morning. Active hydroxychloroqu ine (Plaquenil) 200 MG tablet Take 1 tablet (200 mg) by mouth Once per day. 90 tablet 1 Active hydroquinone 4 % creamIndication s:Seronegative rheumatoid arthritis (CMS/HCC) (HCC) Apply topically in the morning and in the evening. 57 g 2 025 Active Dulaglutide (Trulicity) 1.5 MG/0.5ML solution auto-injector Inject 1.5 mg under the skin 1 (one) time per week. 2 mL 1 Active D3 Super Strength 50 MCG (2000 UT) capsule Take 50 mcg by mouth in the morning. Active lubiprostone (Amitiza) 8 MCG capsuleIndicati ons:Opioid-usha edgard constipation Take 1 capsule (8 mcg) by mouth with breakfast and with evening meal. 60 capsule 3 025 2025 Active levothyroxine (Synthroid, Levoxyl) 75 MCG tabletIndicatio ns:Hypothyroidi sm, unspecified type TAKE 1 TABLET BY MOUTH EVERY MORNING 90 tablet 3 025 Active oxyCODONE-aceta minophen (Percocet) 5-325 MG tabletIndicatio ns:Other chronic pain Take 1 tablet by mouth every 6 (six) hours if needed for severe pain. 112 tablet 025 Active levothyroxine (Synthroid, Levoxyl) 75 MCG tabletIndicatio ns:Hypothyroidi sm, unspecified type TAKE 1 TABLET BY MOUTH EVERY MORNING 90 tablet 3 024 2024 Discontinued oxyCODONE-aceta minophen (Percocet) 5-325 MG tabletIndicatio ns:Other chronic pain Take 1 tablet by mouth every 6 (six) hours if needed for severe pain for up to 28 days. 112 tablet 025 2024 Discontinued clotrimazole (Lotrimin) 1 % cream Apply topically 2 times daily for 28 days. 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 agreement: 12/06/23 Tier II (visit every [...] a bed with railings Seronegative rheumatoid arthritis ([facility]) 01/2023 Assessment & Plan (06/11/2025 8:32 AM EDT): [...] disease, without long-term current use of insulin ([facility]) 02/25/2023 Assessment & Plan (06/08/2024 11:55 AM EDT): A1C 5.9 Current regimen: Metformin 1000mg BID; Ozempic 0.5mg Microalbumin: due Lipid panel: ordered Foot exam: 06/04/24 Eye: 02/11/23 [facility]; No diabetic retinopathy or macular degeneration Statin: Atorvastatin 20mg MELLISSA/ARB: Irbesartan 75mg Assessment & Plan (02/08/2024 8:59 PM EDT): A1C 6.7 Current regimen: Metformin 1000mg BID; Victoza injection Microalbumin: due Lipid panel: today Foot exam: Perform next visit Eye: 02/11/23 [facility]; No diabetic retinopathy or [...] syndrome 12/30/2020 Epidermoid cyst 04/16/2019 Right hemiparesis ([facility]) 04/04/2019 Loss of equilibrium 03/06/2019 Assessment & [...] plastic surgery for panniculectomy Dyslipidemia 05/03/2023 05/03/2023 vermin exterminator systemic steroid user 05/03/2023 06/25/2025 Long-term use of immunosuppressant medication 05/03/20 23 05/03/2023 Lump in chest 05/03/2023 05/01/2025 Overview (05/03/2023): [...] Encounters Date Type Department Care Team Description 08/15/2025 Refill [facility] [address] [place] [address] Sue Alicia MD Other chronic pain 08/11/2025 Refill [facility] [address] [place] [phone] Sue Alicia MD Hypothyroidism, unspecified type 07/30/2025 11:30 AM EDT Office Visit [facility] [address] [place] [phone] Sue Alicia MD Chronic constipation (Primary Dx); Opioid-induced constipation; Type 2 diabetes mellitus with stage 2 chronic kidney disease, without long-term current use of insulin (CMS/HCC) ; Lupus anticoagulant syndrome (CMS/HCC) 07/30/2025 Travel 07/18/2025 Refill [facility] [address] [place] [address] Sue Alicia MD Other chronic pain 07/03/2025 10:00 AM EDT Clinical Support [address] [address] Cookie Alcaraz RN detention current use of opiate analgesic (Primary Dx) 07/03/2025 Travel 06/24/2025 3:15 PM EDT Office Visit [facility] [address] [place] [phone] Sue Alicia MD Other hyperlipidemia (Primary Dx); Type 2 diabetes mellitus with stage 2 chronic kidney disease, without long-term current use of insulin (CMS/HCC) (CMS/HCC); Primary hypertension; Seronegative rheumatoid arthritis (CMS/HCC); Venous hypertension of lower extremity, unspecified laterality; 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; Depressive disorder; Obstructive sleep apnea syndrome 06/24/2025 Travel 06/21/2025 Telephone [facility] [address] [place] [address] Sue Alicia MD chart prep 06/19/2025 Refill [facility] [address] [place] [phone] Jacinta Mederos RN Gastroesophageal reflux disease, unspecified whether esophagitis present 06/18/2025 Telephone [facility] [address] [place] [phone] Sue Alicia MD Medication Question 06/18/[address] [address] Sue Alicia MD Durable Medical Equipment (DME Request: Replacement Shower Chair) 06/18/2025 Refill [facility] [address] [place], [place] [phone] Sue Alicia MD Other chronic pain 06/11/2025 9:30 AM EDT Office Visit [facility] [address] [place] [phone] Vilma Mina MD Chronic low back pain, unspecified back pain laterality, unspecified whether sciatica present (Primary Dx); Other chronic pain 06/11/2025 Travel 06/07/2025 2:40 PM EDT Office Visit [facility] [address] [place] [phone] Sue Alicia MD Seronegative rheumatoid arthritis (CMS/[facility]) (Primary Dx); Type 2 diabetes mellitus with stage 2 chronic kidney disease, without long-term current use of insulin (CMS/HCC) (CMS/HCC); Primary hypertension 06/07/2025 Travel 06/06/[address] [address] Sue Alicia MD Nurse Triage 06/03/2025 Telephone [facility] [address] [place] [address] Sue Alicia MD from Last 3 Months Immunizations Immunization Administration Dates Next Due Influenza injectable quadriv alent IIV4 with preservative 08/20/2019,08/02/2018,07/23/2016 Influenza injectable quadriv alent preservative free 07/23/2021,09/19/2020,07/26/2018,07/18,07/25/2015 Influenza, IIV3, injectable 06/27/2014 Influenza, Split (incl. christophe fied surface antigen) 07/25/2012 Influenza, trivalent, adjuvanted 08/20/2019 [employer] SARS-CoV-2 Vaccination 01/21/2021 Pfizer Covid-19 Vaccine 12+ [...] Sign Reading Time Taken Comments Blood Pressure 118/60 07/30/2025 11:40 AM EDT Pulse 66 07/30/2025 11:40 AM EDT Temperature 36.3 C (97.3 F) 07/30/2025 11:40 AM EDT Respiratory Rate 24 07/30/2025 11:40 AM EDT Oxygen Saturation 100% 06/04/2024 3:30 PM EDT Inhaled Oxygen Concentration - - Weight 70.1 kg (154 lb 9.6 oz) 07/30/2025 11:40 AM EDT Height 157.5 cm (5' 2 ) 07/30/2025 11:40 AM EDT Body Mass Index 28.28 07/30/2025 11:40 AM EDT Plan of Treatment Upcoming Encounters Date Type Department Care Team (Late st Contact Info) Description 09/30/2025 10:00 AM EST Clinical Support [facility] [address] [place] [address] Cookie Alcaraz RN 10/09/2025 3:00 PM EST Office Visit [facility] [address] [place] [address] Sue Alicia MD [address] [place] [address] 12/06/2025 9:30 AM EST Office Visit [facility] OPTOMETRY [address] [place] [address] Clover Null, LINDA [address] [place] [address] Health Maintenance Due Date Last Done Comments [...] 04/10/2026 04/10/2025 Alcohol/Substance Use Screening 04/19/2026 04/19/2025 Colonoscopy 07/19/2026 07/19/2016 Colorectal Cancer Screening 07/19/2026 Tobacco Screening 07/30/2026 07/30/2025 Eye Exam 10/22/2026 10/22/2024, 10/01, 10/22/2024, Additional history exists DTaP/Tdap/Td Vaccines (2 - Td or Tdap) 10/04/2027 10/04/2017, 05/22/2007 Hepatitis C Screening Completed 12/26/2019 Pneumococcal Vaccine: 50+ Years Completed 04/20/2023, 08/16/2018, 10/04/2017 HPV/Cotest Discontinued 02/29/2024, 01/31/2019 HIB Vaccines Aged Out No longer eligi [...] DRUG SCREEN Routine 07/03/2025 9:51 AM EDT 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 08/06/26 Internal Pass Control Sue Alicia MD POINT OF CARE TEST ENTER/EDIT ORDERABLES Final Result * POCT HGB A1C (06/24/2025 4:31 PM EDT) Hemoglobin A1C 5.7 4.0 - 5.7 % QC Media Lot # [id number] Lot# Expiration Date 42 Blood 06/24/2025 4:31 PM EDT Sue Alicia MD POINT OF CARE TEST ENTER/EDIT ORDERABLES Final Result * POCT Glucose (06/24/2025 3:19 PM EDT) Glucose Blood, POC 111 60 - 200 [...] AM EDT Narrative 08/20/2024 6:01 PM EDT [facility] [address] [place] [address] Mammography Report Signed Patient: Nicky Lopez MR#: [id number] 3 : 1960 Acct:[id number] Age/Sex: 63 / F ADM Date: 08/08/24 Loc: HO.MAMMO Attending Dr: Isael Hollis MD Ordering Physician: LATRICE FORBES CNM Results: 2 Benign Findings Date of Service: 08/08/24 Follow Up: 1 Year From Orig ina Mammogram Procedure(s): MM tomosynthesis screening BI Accession Number(s): [id number] cc: Sue Alicia; LATRICE FORBES CNM EXAMINATION: [...] 08/20/24 1758 DD/ 1120 TD/TT: 08/08/24 1140 Processing Clerk: Procedure Note Donotuseinterpreter, Image - 08/20/2024 Dilip [facility] [address] [place], [place] [address] Mammography Report Signed Patient: Aleshia Lopez#: [id number] 3 : 9Acct:[id number] Age/Sex: 63 / FADM Date: 08/08/24 Loc: HO.MAMMO Attending Dr: Isael Hollis MD Ordering Physician: LATRICE FORBESesults: 2 Benign Findings Date of Service: 08/08/24Follow Up: 1 Year From Orig inal Mammogram Procedure(s): MM tomosynthesis screening BI Accession Number(s): [id number] cc: Sue Alicia; LATRICE FORBES CNM EXAMINATION: [...] 08/20/24 1758 DD/ 1120 TD/TT: 08/08/24 1140 Processing Clerk: us Latrice Forbes CNM IMG BI PROCEDURES Edited Result - Final * HPV mRNA E6/E7 w/Reflex to HPV Genotypes 16, 18/45 (02/29/2024 9:12 AM EDT) HPV nRNA E6/E7 Not Detected Not Detected [facility] Comment:Methodology: Transcr iption-Mediated AmplificationThis assay detects E6/E7 viral messenger RNA (mRNA) from 14high-risk HPV types (16,18,31,33,35,39,45,51,52,56,58,59,66,68).Cervical sources are required for HPV testing.If a vaginal source from a patient who has had atotal hysterectomy with removal of cervix wassubmitted, please contact the testing laboratoryfor alternative testing options.For additional information, please refer tohttp://[email or web address]/faq/HZC573g3(This link if provided for information/educational purposes only.)THIS TEST WAS PERFORMED AT:[email or web address] [place] [id number] RODRIGES MD HPV mRNA E6/E7 [facility] HPV 16 RNA [facility] HPV 18/45 RNA [facility] 02/29/2024 9:12 AM EDT 03/05/2024 8:00 AM EDT Latrice Forbes CNM LAB CYTOLOGY ORDERABLES F inal Result [facility] [address] [place] [phone] * Pap Smear (02/29/2024 9:12 AM EDT) Swab Cervix uteri structure / Unknown 02/29/2024 9:12 AM EDT 03/05/2024 8:00 AM EDT Narrative [facility] - 03/27/2024 3:52 PM EDT ----- ------- Name: Nicky Lopez Age/Sex: 63/F : 1960 Unit#: [id number] Attend Dr: LATRICE FORBES CNM Re02/29/24 Status: DEP [facility]F [facility] Disch: ----- ------- SPEC : [id number] RECD: 03/05/24 STATUS: LINDA WILLS NUM: [id number] [place]: 02/29/[address] [facility] [address]: LATRICE FORBES CNM ENTERED: 03/05/24 SP TYPE: Pap Smr OTHR : ORDERED: Pap Smear Interpretation Satisfactory for evaluation. No endocervical cells seen. Negative for intraepithelial lesion or malignancy. HPV mRNA E6/E7: NOT DETECTED This assay detects E6/E7 viral messenger RNA (mRNA) from 14 high-risk HPV types (16, 18, 31, 33, 35, 39, 45, 51, 52, 56, 58, 59, 66, 68) HPV testing performed by [facility], [place], [place]. See reference laboratory portion of the EMR for entire report. Clinical Information LMP: Postmenopausal Previous PAP test: 01/2019, NIL/HPV- Material Received ThinPrep-Cervical ----- ------- Signed (signature on file) MAC Toro ([facility]) 03/27/24 1552 ----- ------- END OF REPORT us Latrice Forbes [facility] CYTOLOGY ORDERABLES F inal Result [facility] [address] [place] [phone] * (ABNORMAL) LIPID PANEL (06/10/2022 10:29 AM EDT) [facility] Signature Cholesterol 156 mg/dL [facility] [...] mg/dl [facility] Comment: Desirable LDL: less than [...] >60 [facility] Comment: NOTE: For -[place] individuals, multiply the result by 1.210. Chronic [...] ORDERABLE LABS Final Result Performing Organization Address [facility]/ZIP Co de Phone Number [facility] [address] * HEPATITIS A,B,C PROFILE (12/26/2019 12:05 [...] Historical Provider HISTORICAL/NON ORDERABLE LABS Final Result [facility] [address] [place] [address], * Colonoscopy (07/19/2016) Anatomical Region Laterality Modality Endoscopy Impressions 07/19/2016 07/19/2016 internal hemorrhoids, sigmoid diverticulosis. Recommend repeat in 10 years. 07/2026 us Historical Provider ENDOSCOPY PROCEDURE ORDER KOBY Final Result from Last 3 Months or Most Recently Relevant to Health Maintenance Insurance [place] [id number] [facility] Care Teams Greenskeeper Relationship Specialty Start Date End Date Sue Alicia MD [address] [place] [address] PCP - General Family Medicine 08/09/23
--- OUTSIDE RECORDS SUMMARY | 2025-09-03 12:32 | XMS_ITS | Encounter Summary ---
Author Organization [employer] Address [address] [place] [address] [address] [place] [address] Care Team Providers Care Inside Sales Consultant Name Role Phone Sue Alicia MD Primary Care Provider [phone] Reason for Visit * Reason Onset Date Comments Med Refill 11/21/2023 Encounter Details Date Type Department Care Team ([facility] st Contact Info) Description 11/21/2023 Refill [facility] [address] [place], [place] [phone] Sue Alicia MD [address] [place], [place] [phone] Chronic low back pain, unspecified back pain [...] with others, in a hotel, in a correction, living outside on the street, on a [...] 10 MG tablet To be sent to: [facility] - [place], [place] - [address] [place] [address] documented in this encounter Plan of Treatment Upcoming Encounters Date Type Department Care Team (Late st Contact Info) Description 09/30/2025 10:00 AM EST Clinical Support [facility] [address] [place] [phone] Cookie Alcaraz RN 10/09/2025 3:00 PM EST Office Visit [facility] [address] [place] [phone] Sue Alicia MD [address] [place] [phone] 12/06/2025 9:30 AM EST Office Visit [facility] OPTOMETRY [address] [place], [place] [phone] Clover Null, OD [address] [place] [address] documented as of this encounter Visit Diagnoses Diagnosis Chronic low back pain, unspecified back pain laterality, unspecified whether sciatica present Rash and nonspecific skin eruption Rash and other nonspecific skin eruption documented in this encounter Additional Health Concerns Assessment Noted Time PHQ-9 Depression Total Score: 0 02/26/20 23 9:24 AM EDT documented as of this encounter Care Teams Inside Sales Consultant Relationship Specialty Start Date End Date Sue Alicia MD [address] [place] [address] PCP - General Family Medicine 08/09/23 documented as of this encounter
--- OUTSIDE RECORDS SUMMARY | 2025-09-03 12:32 | XMS_ITS | Encounter Summary ---
Author Organization [employer] Address [address] [facility] 7t [place] [address] Care Team Providers Care Oracle Business Analyst Name Role Phone Sue Alicia MD Primary Care Provider [phone] Reason for Referral * Consultation (Routine) - Closed Specialty Diagnoses / Procedures Referred By Contac t Referred To Contact Vascular Surgery Diagnoses Pain due to varicose veins of both lower extremities Sue Alicia MD [address] [place] [address] Phone: tel: fax: [facility] [address] [place], [place] Phone: tel: fax: Referral ID Status Reason Start Date Expiration Date V isits Requested Visits Authorized [id number] Closed Specialty Services Required 04/17/2024 04/17/2025 6 6 * Consultation (Routine) - Closed Specialty Diagnoses / Procedures Referred By Contac t Referred To Contact Pulmonary Disease Diagnoses Mild intermittent asthma without complication Obstructive sleep apnea syndrome Sue Alicia MD [address] [place] [address] Phone: tel: fax: [facility] [address] [place], [place] Phone: tel: fax: Referral ID Status Reason Start Date Expiration Date V isits Requested Visits Authorized [id number] Closed Specialty Services Required 04/19/2024 04/19/2025 6 6 Encounter Details Date Type Department Care Team (Late st Contact Info) Description 04/03/2024 Orders Only [facility] [address] [place] [address] Sue Alicia MD [address] [place] [address] Mild intermittent asthma without complication (Primary Dx); [...] Description 09/30/2025 10:00 AM EST Clinical Support [facility] [address] [place] [address] Cookie Alcaraz RN 10/09/2025 3:00 PM EST Office Visit [facility] [address] [place] [address] Sue Alicia MD [address] [place] [address] 12/06/2025 9:30 AM EST Office Visit [facility] OPT[facility] [address] [place] [address] Chaka, Clover, OD [address] [place] [address] Scheduled Referrals Name Type Priority Associated Diagnoses [...] documented as of this encounter Care Teams Oracle Business Analyst Relationship Specialty Start Date End Date Sue Alicia MD [address] [place] [phone] PCP - General Family Medicine 08/09/23 documented as of this encounter
--- OUTSIDE RECORDS SUMMARY | 2025-09-03 12:32 | XMS_ITS | Encounter Summary ---
Author Organization [employer] Address [address] [place] [address] 7t [place] [address] Care Team Providers Care Human Resources Department Supervisor Name Role Phone Sue Alicia MD Primary Care Provider [phone] Reason for Visit * Reason Onset Date Comments Med Refill 02/17/2024 Encounter Details Date Type Department Care Team ([facility] st Contact Info) Description 02/17/2024 Telephone [facility] [address] [place], [place] [phone] Sue Alicia MD [address] [place], [place] [phone] Med Refill Social History Tobacco Use Types [...] 5 MG tablet To be sent to: [facility] - [place], [place] - [address] [place] [address] documented in this encounter Plan of Treatment Upcoming Encounters Date Type Department Care Team (Late st Contact Info) Description 09/30/2025 10:00 AM EST Clinical Support [facility] [address] [place] [phone] Cookie Alcaraz RN 10/09/2025 3:00 PM EST Office Visit [facility] [address] [place] [phone] Sue Alicia MD [address] [place] [address] 12/06/2025 9:30 AM EST Office Visit [facility] OPTOMETRY [address] [place] [address] Clover Null, OD [address] [place] [address] documented as of this encounter Visit Diagnoses Not on filedocumented in this encounter Additional Health Concerns Assessment Noted Time PHQ-9 Depression Total Score: 19 024 2:37 PM EDT documented as of this encounter Care Teams Human Resources Department Supervisor Relationship Specialty Start Date End Date Sue Alicia MD [address] [place] [address] PCP - General Family Medicine 08/09/23 documented as of this encounter
--- OUTSIDE RECORDS SUMMARY | 2025-09-03 12:32 | XMS_ITS | Encounter Summary ---
Author Organization [employer] Address [address] [facility] 7t [place] [address] Care Team Providers Care Test Boring Crew Chief Name Role Phone Sue Alicia MD Primary Care Provider [phone] Reason for Visit * Reason Comments Med Refill Encounter Details Date Type Department Care Team ([facility] st Contact Info) Description 10/03/2024 Refill [facility] [address] [place], [place] [phone] Sue Alicia MD [address] [place], [place] [phone] Bronchitis Social History Tobacco Use Types Packs/Day [...] Clinical Support [facility] [address] [place] [address] Cookie Alcaraz RN 10/09/2025 3:00 PM EST Office Visit [facility] [address] [place] [address] Sue Alicia MD [address] [place] [address] 12/06/2025 9:30 AM EST Office Visit [facility] [address] [place] [address] Clover Null, OD 230 [place] [address] documented as of this encounter Visit Diagnoses Diagnosis Bronchitis Bronchitis, not specified as acute or chronic documented in this encounter Additional Health Concerns Assessment Noted Time PHQ-9 Depression Total Score: 19 024 2:37 PM EDT documented as of this encounter Care Teams Test Boring Crew Chief Relationship Specialty Start Date End Date Sue Alicia MD [address] [place] [id number] PCP - General Family Medicine 08/09/23 documented as of this encounter
--- OUTSIDE RECORDS SUMMARY | 2025-09-03 12:32 | XMS_ITS | Encounter Summary ---
Author Organization [employer] Address [address] [place] [address] 7t [place] [address] Care Team Providers Care Oil Rig Roughneck Name Role Phone Sue Alicia MD Primary Care Provider [phone] Reason for Visit * Reason Comments Med Refill Encounter Details Date Type Department Care Team ([facility] st Contact Info) Description 12/11/2024 Refill [facility] 230 [place], [place] [phone] Sue Alicia MD 230 [place], [place] [phone] Chronic low back pain, unspecified back pain [...] the past 12 months, has t he [employer], gas, oil or water company threatened to [...] Description 09/30/2025 10:00 AM EST Clinical Support [facility] [address] [place] [address] Cookie Alcaraz RN 10/09/2025 3:00 PM EST Office Visit [facility] [address] [place] [address] Sue Alicia MD [address] [place] [address] 12/06/2025 9:30 AM EST Office Visit [facility] OPTOMETRY [address] [place] [address] Chaka, Clover, OD 230 [place] [address] documented as of this encounter Visit Diagnoses Diagnosis Chronic low back pain, unspecified back pain laterality, unspecified whether sciatica present documented in this encounter Additional Health Concerns Assessment Noted Time PHQ-9 Depression Total Score: 19 024 2:37 PM EDT documented as of this encounter Care Teams Oil Rig Roughneck Relationship Specialty Start Date End Date Sue Alicia MD [address] [place] [address] PCP - General Family Medicine 08/09/23 documented as of this encounter
--- OUTSIDE RECORDS SUMMARY | 2025-09-03 12:32 | XMS_ITS | Clinical Summary ---
Author Organization [facility] Address [address] [place] [phone] Phone Care Team Providers Care Streetcar Motorman Name Role Phone Sue Alicia MD Primary [...] COLONOSCOPY 2004 RSV VACCINE (1 - Risk 50-74 years 1-dose series) 2009 ZOSTER VACCINES (2 of 2) 05/21/2022 03/26/2022 [...] topic Medical Devices Not on file Insurance [facility] PART A & B [place] A & [place] MEDICARE PART A & B [address] [place] [id number] [facility] MEDICARE PART A & B Care Teams Streetcar Motorman Relationship Specialty Start Date End Date Sue Alicia MD PCP - General Family Medicine 02/09/24 Additional Source Comments The information contained in this document represents components of the legal health record. It is not the complete legal health record.[facility]
--- OUTSIDE RECORDS SUMMARY | 2025-09-03 12:32 | XMS_ITS | Encounter Summary ---
Author Organization [employer] Address [address] [place] [address] 7t [place] [address] Care Team Providers Care Braille Teacher Name Role Phone Sue Alicia MD Primary Care Provider Reason for Visit * Reason Onset Date Comments Med Refill 05/09/2024 Encounter Details Date Type Department Care Team ([facility] st Contact Info) Description 05/09/2024 Telephone [facility] 230 [place], [place] [phone] Sue Alicia MD 230 [place], [place] [phone] Med Refill Social History Tobacco Use Types [...] EDT Script was sent on 05/04/24 to [facility]. * Telephone Encounter - Jamal Linder - 05/09/2024 9:46 AM EDT TC from pt requesting medication refill. Medications needing refill : cyclobenzaprine (Flexeril) 5 MG tablet To be sent to: [facility] documented in this encounter Plan of Treatment Upcoming Encounters Date Type Department Care Team (Late st Contact Info) Description 09/30/2025 10:00 AM EST Clinical Support [facility] [address] [place] [address] Cookie Alcaraz RN 10/09/2025 3:00 PM EST Office Visit [facility] [address] [place] [address] Sue Alicia MD 230 [place], [place] [phone] 12/06/2025 9:30 AM EST Office Visit [facility]OM[facility] [address] [place], [place] [phone] Chaka Clover, OD 230 [place], [place] [phone] documented as of this encounter Visit Diagnoses Not on filedocumented in this encounter Additional Health Concerns Assessment Noted Time PHQ-9 Depression Total Score: 19 024 2:37 PM EDT documented as of this encounter Care Teams Braille Teacher Relationship Specialty Start Date End Date Sue Alicia MD 230 [place], [place] [phone] PCP - General Family Medicine 08/09/23 documented as of this encounter
--- OUTSIDE RECORDS SUMMARY | 2025-09-03 12:33 | XMS_ITS | Encounter Summary ---
Author Organization [employer] Address [address] [facility] 7t [place] [address] Care Team Providers Care District Branch Manager Name Role Phone Sue Alicia MD Primary Care Provider [phone] Reason for Visit * Reason Comments Med Refill Encounter Details Date Type Department Care Team ([facility] st Contact Info) Description 08/28/2024 Refill [facility] [address] [place], [place] [phone] Sue Alicia MD 230 [place] [address] Chronic low back pain, unspecified back pain [...] the past 12 months, has t he [employer], gas, oil or water [employer] threatened to shut off services in your [...] Description 09/30/2025 10:00 AM EST Clinical Support [facility] [address] [place] [address] Cookie Alcaraz RN 10/09/2025 3:00 PM EST Office Visit [facility] [address] [place] [address] Sue Alicia MD 230 [place] [address] 12/06/2025 9:30 AM EST Office Visit [facility] OPTOMETRY [address] [place] [address] Clover Null, OD 230 [place] [address] documented as of this encounter Visit Diagnoses Diagnosis Chronic low back pain, unspecified back pain laterality, unspecified whether sciatica present documented in this encounter Additional Health Concerns Assessment Noted Time PHQ-9 Depression Total Score: 19 024 2:37 PM EDT documented as of this encounter Care Teams District Branch Manager Relationship Specialty Start Date End Date Sue Alicia MD 230 [place] [address] PCP - General Family Medicine 08/09/23 documented as of this encounter
--- OUTSIDE RECORDS SUMMARY | 2025-09-03 12:33 | XMS_ITS | Encounter Summary ---
Author Organization [employer] Address [address] [place] [address] 7t [place] [address] Care Team Providers Care Laborer Shaft Sinking Name Role Phone Sue Alicia MD Primary Care Provider [phone] Reason for Visit * Reason Comments Med Refill Encounter Details Date Type Department Care Team ([facility] st Contact Info) Description 05/01/2025 Refill [facility] [address] [place], [place] [phone] Sue Alicia MD [address] [place], [place] [phone] Type 2 diabetes mellitus with diabetic chronic kidney disease ([facility]/HCC) Social History Tobacco Use Types Packs/Day Years [...] the past 12 months, has t he [employer], gas, oil or water company threatened to [...] Description 09/30/2025 10:00 AM EST Clinical Support [facility] [address] [place] [address] Cookie Alcaraz RN 10/09/2025 3:00 PM EST Office Visit [facility] [address] [place] [address] Sue Alicia MD [address] [place] [address] 12/06/2025 9:30 AM EST Office Visit [facility] [address] [place] [address] Clover Null, LINDA 230 [place] [address] documented as of this encounter Visit Diagnoses Diagnosis Type 2 diabetes mellitus with diabetic chronic kidney disease (HCC) documented in this encounter Additional Health Concerns Assessment Noted Time PHQ-9 Depression Total Score: 14 025 11:22 AM EDT documented as of this encounter Care Teams Laborer Shaft Sinking Relationship Specialty Start Date End Date Sue Alicia MD [address] [place] [address] PCP - General Family Medicine 08/09/23 documented as of this encounter
--- OUTSIDE RECORDS SUMMARY | 2025-09-03 12:33 | XMS_ITS | Encounter Summary ---
Author Organization [employer] [facility] Address [address] [place] [address] 7t [place] [address] Care Team Providers Care Catering Coordinator Name Role Phone Miranda Ramirez Primary Care Provider Sera Sue Garcia MD Primary Care Provider [phone] Reason for Visit * Reason Comments Med Refill Encounter Details Date Type Department Care Team (Late st Contact Info) Description 07/21/2023 Refill [facility] [address] [place] [phone] Miranda Ramirez FNP Hypothyroidism, unspecified type Social [...] EST Clinical Support [facility] [address] [place] [address] [phone] Cookie Alcaraz RN 10/09/2025 3:00 PM EST Office Visit [facility] [address] [place] [address] [phone] Sue Alicia MD 230 [place], [place] [phone] 12/06/2025 9:30 AM EST Office Visit [facility] OPTOMETRY [address] [place], [place] [phone] Chaka, Clover, OD 230 [place], [place] [phone] documented as of this encounter Visit Diagnoses Diagnosis Hypothyroidism, unspecified type documented in this encounter Additional Health Concerns Assessment Noted Time PHQ-9 Depression Total Score: 0 02/26/20 9:24 AM EDT documented as of this encounter Care Teams Catering Coordinator Relationship Specialty Start Date End Date Miranda Ramirez FNP PCP - General Family Medicine 12/01/22 08/08/23 Sue Alicia MD 230 [place], [place] [phone] PCP - General Family Medicine 08/09/23 documented as of this encounter
--- OUTSIDE RECORDS SUMMARY | 2025-09-03 12:33 | XMS_ITS | Encounter Summary ---
Author Organization [employer] Address [address] [facility] 7t [place] [address] Care Team Providers Care Curer Acid Drum Name Role Phone Sue Alicia MD Primary Care Provider [phone] Encounter Details Date Type Department Care Team ([facility] st Contact Info) Description 09/17/2024 Orders Only [facility] [address] [place], [place] [phone] Sue Alicia MD 230 [place], [place] [phone] Bronchitis (Primary Dx) Social History Tobacco Use [...] Support [facility] [address] [place] [phone] Cookie Alcaraz RN 10/09/2025 3:00 PM EST Office Visit [facility] [address] [place] [address] Sue Alicia MD [address] [place] [address] 12/06/2025 9:30 AM EST Office Visit [facility] OPTOMETRY [address] [place] [address] Clover Null, OD 230 [place] [address] documented as of this encounter Visit Diagnoses Diagnosis Bronchitis- Primary Bronchitis, not specified as acute or chronic documented in this encounter Additional Health Concerns Assessment Noted Time PHQ-9 Depression Total Score: 19 024 2:37 PM EDT documented as of this encounter Care Teams Curer Acid Drum Relationship Specialty Start Date End Date Sue Alicia MD [address] [place] [address] PCP - General Family Medicine 08/09/23 documented as of this encounter
== END 2025-09-03 11:26 | disposition home or self-care (01) ==
LOC: HO.RHES 10:37
PROVIDERS: PCP General Practice; Visit Provider Student in an Organized Health Care Education/Training Program
DX: M35.89 Other specified systemic involvement of connective tissue (principal); M79.7 Fibromyalgia; M1A.00X0 Idiopathic chronic gout, unspecified site, without tophus (tophi); M85.89 Other specified disorders of bone density and structure, multiple sites; Z79.899 Other long term (current) drug therapy; Z79.52 Long term (current) use of systemic steroids; Z51.81 Encounter for therapeutic drug level monitoring
CPT/HCPCS: 99215; G2211

== ENCOUNTER → 2025-09-03 10:37 | Outpatient (BNVA) | payer MEDICARE, MEDICAID, SELFPAY | PROVIDERS: PCP General Practice; Visit Provider Student in an Organized Health Care Education/Training Program | DX: M35.9 Systemic involvement of connective tissue, unspecified (principal); R21 Rash and other nonspecific skin eruption; M06.00 Rheumatoid arthritis without rheumatoid factor, unspecified site; M79.7 Fibromyalgia; M1A.00X0 Idiopathic chronic gout, unspecified site, without tophus (tophi); M85.89 Other specified disorders of bone density and structure, multiple sites; Z51.81 Encounter for therapeutic drug level monitoring; Z79.52 Long term (current) use of systemic steroids; Z79.899 Other long term (current) drug therapy | CPT/HCPCS: 99212 ==